=== PATIENT | female | born 1970 ===

== ENCOUNTER → 2022-12-16 14:00 | Outpatient (BNVA) | payer OTHER, SELFPAY | PROVIDERS: Visit Provider Physician Assistant | DX: Z13.89 Encounter for screening for other disorder (principal) ==

== ENCOUNTER 2023-03-04 09:54 | Outpatient (AMB) | payer OTHER, SELFPAY ==
--- NOTE | 2023-03-04 09:57 | A.OFFVIS_ITS ---
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 She heard about our program from her friends. Her goal is to lose weight and achieve a healthy lifestyle as well as to improve, if not resolve, obesity related medical conditions, including DM, HTN, HLD, DERECK. She reports first being concerned about her weight 5 years ago, highest weight to date was 195. Current weight is 184.8 with a BMI of 37.3. She has tried multiple methods of weight loss including fad diets without permanent results. She lives alone. She currently does not work. She states she gets SOB and palpitations with exercise. Saw cardiology at [facility] 5 years ago and was told she has an irregular heartbeat but had not followed up. She says her PCP advised her to walk until she gets the palpitations and then stop to recover. She states she gets the palpitations with non radiating chest tightness after 20 minutes. She wakes at:?7 am, and goes to bed at?10pm. Dinner is at 5pm. Breakfast: oatmeal, eggs AM snack: orange, cherries Lunch: skip PM snack: fruit or tuna Dinner: rice, chicken or fish, root veg After dinner: fruit or cookies Other snacks: candy, cookies Liquids: 16 oz water, coke or pepsi zero 1 bottle, no juice Alcohol/marijuana/tobacco intake: none Exercise: walk outside, could join a gym GERD score: 1 IAM score: 1 ESS score: 20 QOL score: 118 PFSH Surgical History Hx of section Hx of hysterectomy Family History Mother Diabetes Heart problem Hypertension Father Mental health disorder Daughter No problems noted. Son No problems noted. Son No problems noted. Social History Alcohol intake: never Patient Tobacco Use Status: Never used Tobacco Review of Systems Const All systems reviewed & are unremarkable except as noted in HPI and below Physical Exam Const General: cooperative, healthy appearing and no acute distress Orientation/consciousness: patient oriented x3 HEENT Head: Yes normal to inspection Ears: hearing grossly normal bilaterally General nose exam: Normal external nose present Face and sinus: Yes normal facial exam Eyes General: appearance normal, both eyes and all related structures Resp Effort & Inspection: normal respiratory effort Auscultation: clear to auscultation bilaterally Cardio Rate: regular rate Rhythm: regular rhythm Heart sounds: S1 normal heart sound present and S2 normal heart sound present GI Inspection: Yes normal to inspection, No distended and Yes obesity Palpation (GI): Soft to palpation, nontender and no guarding Auscultation: normal bowel sounds Skin General skin exam: no rashes or lesions noted Neuro General: patient oriented x3 Extrem General: No edema Psych Appearance: grossly normal Mental Status: mental status grossly normal Speech and movement: Normal speech and movement present Affect: normal affect Attitude: cooperative Assessment & Plan Assessment & Plan (1) Obesity (BMI 30-39.9): Code(s): E66.9 - Obesity, unspecified Plan: This is a?52 yo female who will start our SWL program to prepare for bariatric surgery.? Blood work, h pylori , CXR, ECG, Abd US and UGI have been ordered. She is being scheduled for RD and BH initial consultations. She will start SWL classes and watch the first three videos before her next appointment. ? Adequate sleep of 7-8 hours per night discussed, awakening at 7 am and going to bed around 10 pm ? Purchase body composition analyzer scale (Aneta vicetne or Evette recommended) and check weight weekly. The best time to do this is first thing in the morning after going to the bathroom. 1. Nutritional counseling: Be sure to careful read the number of scoops per shake Start with 2 Premier Protein shakes ([employer], [employer], [employer]) First shake, (1 scoop in 8 oz low fat unsweetened almond milk) at 8am-10am Second shake, (1 scoop in 8 oz unsweetened almond milk) at 12pm-2pm Dinner at 5pm (7 forks of protein and 7 forks of salad/vegetables). Meal to include lean meat (beef, fish, pork, turkey, chicken), cooked vegetables or a salad with olive oil and/or fruits (berries, pears, apples, kiwi). Avoid salt, breads, potatoes, rice, pasta, desserts. 1 protein bar (Zone Perfect bars or Fulfil bars at [employer], [employer], or [employer]) at 7pm-9pm. Try to drink 64 oz of water daily and avoid soda and juices. ?2. Each shake would be drunk slowly, like coffee in a period of 2 hours. ?3. Cut each bar in 4 pieces and eat each piece in 30 min ?to make each bar last 2 hours. ?4. I emphasized the importance of measuring accurately the food portion and measure it carefully when serving the food on the plate ?5. The meal portions include 7 full-size forks of meat and 7 full-size forks of salad. You always eat the meat portion but you can replace up to half of the forks of salad/vegetables with rice, potatoes or pasta, or a fruit ?if you like. The less you do it the better weight loss will be. ?6. One full-size fork is what can be scooped on the fork without falling aside and not what can be bit with the fork. Use regular forks like those you find in a typical restaurant. ?7.? Please send me weight measurements as soon as possible and then once a week. Always include your diet and exercise plan. Alternatively come weekly at the office for weight checks and send me the measurements. ?8. Exercise counseling: Begin by watching a stretching for beginners video. Start slowly and begin to stretch your muscles. You should do this before and after each exercise session to prevent injury. You may continue to walk as instructed by your PCP. Once you are seen by Pulmonology ( [facility] appt is 05/22/23) and Cardiology ( I put in a consult for you for the heart doctor at [place]). You will need to have clearance to exercise from these doctors before I can give you and exercise program. 10.? It is important to communicate by text once weekly with your weight and if you are having any problems with the plans. 11. Please get labs, EKG and chest X-Ray within 1 week. 12. Discussed and answered all questions regarding?obtained consent to participate in the [place] [facility]. 13. Please follow the diet plan exactly, without any change. If you do not like something about the plan or you feel hungry, you need to communicate with me so I can help you revise the plan. You should not change the plan yourself. Text me at [phone] 14. Goal is to lose at least 12 pounds in the first month 15. Goal is to lose 10% of your weight before surgery, which is about 18 lbs. Ultimate weight goal: 166 lbs before surgery Patient is morbidly obese and is not considered stable at this time.?I spent a total of 70 minutes reviewing/updating records, examining the patient and counseling the patient on weight management as detailed above. (2) Heart palpitations: Code(s): R00.2 - Palpitations Plan: Consult to cardiology for clearance to exercise given complaint of palpitations and chest tightness after 20 minutes of walking and she was told of irregular heartbeat at appt with cardiology at [facility] 5 years ago but never followed up. Orders: Orders Vitamin B12 and Folate Today E11.9 - Type 2 diabetes mellitus without complications, E66.9 - Obesity, unspecified, E78.00 - Pure hypercholesterolemia, unspecified, I10 - Essential (primary) hypertension Comprehensive Met. Panel Today E11.9 - Type 2 diabetes mellitus without complications, E66.9 - Obesity, unspecified, E78.00 - Pure hypercholesterolemia, unspecified, I10 - Essential (primary) hypertension C Reactive Protein Today E11.9 - Type 2 diabetes mellitus without complications, E66.9 - Obesity, unspecified, E78.00 - Pure hypercholesterolemia, unspecified, I10 - Essential (primary) hypertension Ferritin Today E11.9 - Type 2 diabetes mellitus without complications, E66.9 - Obesity, unspecified, E78.00 - Pure hypercholesterolemia, unspecified, I10 - Essential (primary) hypertension Hemoglobin A1c Today E11.9 - Type 2 diabetes mellitus without complications, E66.9 - Obesity, unspecified, E78.00 - Pure hypercholesterolemia, unspecified, I10 - Essential (primary) hypertension Insulin Today E11.9 - Type 2 diabetes mellitus without complications, E66.9 - Obesity, unspecified, E78.00 - Pure hypercholesterolemia, unspecified, I10 - Essential (primary) hypertension IRON PROFILE Today E11.9 - Type 2 diabetes mellitus without complications, E66.9 - Obesity, unspecified, E78.00 - Pure hypercholesterolemia, unspecified, I10 - Essential (primary) hypertension Lipid Panel Today E11.9 - Type 2 diabetes mellitus without complications, E66.9 - Obesity, unspecified, E78.00 - Pure hypercholesterolemia, unspecified, I10 - Essential (primary) hypertension PTHI Today E11.9 - Type 2 diabetes mellitus without complications, E66.9 - Obesity, unspecified, E78.00 - Pure hypercholesterolemia, unspecified, I10 - Essential (primary) hypertension TSH reflex Free T4 Today E11.9 - Type 2 diabetes mellitus without complications, E66.9 - Obesity, unspecified, E78.00 - Pure hypercholesterolemia, unspecified, I10 - Essential (primary) hypertension Vitamin A Today E11.9 - Type 2 diabetes mellitus without complications, E66.9 - Obesity, unspecified, E78.00 - Pure hypercholesterolemia, unspecified, I10 - Essential (primary) hypertension Vitamin B1 Today E11.9 - Type 2 diabetes mellitus without complications, E66.9 - Obesity, unspecified, E78.00 - Pure hypercholesterolemia, unspecified, I10 - Essential (primary) hypertension Vitamin D 25-OH Total Today E11.9 - Type 2 diabetes mellitus without complications, E66.9 - Obesity, unspecified, E78.00 - Pure hypercholesterolemia, unspecified, I10 - Essential (primary) hypertension Zinc Today E11.9 - Type 2 diabetes mellitus without complications, E66.9 - Obesity, unspecified, E78.00 - Pure hypercholesterolemia, unspecified, I10 - Essential (primary) hypertension ECG 12 lead EKG Today E11.9 - Type 2 diabetes mellitus without complications, E66.9 - Obesity, unspecified, E78.00 - Pure hypercholesterolemia, unspecified, I10 - Essential (primary) hypertension FL upper GI w air Today E11.9 - Type 2 diabetes mellitus without complications, E66.9 - Obesity, unspecified, E78.00 - Pure hypercholesterolemia, unspecified, I10 - Essential (primary) hypertension Complete Blood Count Auto Diff Today E11.9 - Type 2 diabetes mellitus without complications, E66.9 - Obesity, unspecified, E78.00 - Pure hypercholesterolemia, unspecified, I10 - Essential (primary) hypertension H Pylori Breath Test Today E11.9 - Type 2 diabetes mellitus without complications, E66.9 - Obesity, unspecified, E78.00 - Pure hypercholesterolemia, unspecified, I10 - Essential (primary) hypertension US abdomen comp w elastography Today E11.9 - Type 2 diabetes mellitus without complications, E66.9 - Obesity, unspecified, E78.00 - Pure hypercholesterolemia, unspecified, I10 - Essential (primary) hypertension XR chest 2V Today E11.9 - Type 2 diabetes mellitus without complications, E66.9 - Obesity, unspecified, E78.00 - Pure hypercholesterolemia, unspecified, I10 - Essential (primary) hypertension Referrals Behavioral Health Referral E11.9 - Type 2 diabetes mellitus without complications, E66.9 - Obesity, unspecified, E78.00 - Pure hypercholesterolemia, unspecified, I10 - Essential (primary) hypertension Cardiology Referral E11.9 - Type 2 diabetes mellitus without complications, E66.9 - Obesity, unspecified, I10 - Essential (primary) hypertension, R00.2 - Palpitations Nutrition/Dietitian Referral E11.9 - Type 2 diabetes mellitus without complications, E66.9 - Obesity, unspecified, E78.00 - Pure hypercholesterolemia, unspecified, I10 - Essential (primary) hypertension Coding Level of Care Code New Pt Level 5 (79052) Diagnoses Obesity (BMI 30-39.9) E66.9 Heart palpitations R00.2 Time Spent (min) 70
== END 2023-03-04 10:54 | disposition home or self-care (01) ==
PROVIDERS: Visit Provider Physician Assistant Surgical
DX: E66.9 Obesity, unspecified (principal); Z68.36 Body mass index [BMI] 36.0-36.9, adult; R00.2 Palpitations
CPT/HCPCS: 99205

== ENCOUNTER → 2023-03-04 09:54 | Outpatient (BNVA) | payer OTHER, SELFPAY | PROVIDERS: Visit Provider Physician Assistant Surgical | DX: E66.9 Obesity, unspecified (principal); E11.9 Type 2 diabetes mellitus without complications; I10 Essential (primary) hypertension; E78.00 Pure hypercholesterolemia, unspecified; R00.2 Palpitations; Z79.4 Long term (current) use of insulin; Z68.36 Body mass index [BMI] 36.0-36.9, adult; Z71.3 Dietary counseling and surveillance; Z79.899 Other long term (current) drug therapy | CPT/HCPCS: 99202 ==

== ENCOUNTER 2023-03-12 08:49 | Outpatient (REF) | payer OTHER, SELFPAY ==
--- NOTE | ~2023-03-12 | XR_ITS ---
EXAMINATION: XR CHEST CLINICAL INFORMATION: Obesity, unspecified COMPARISON: None available. TECHNIQUE: 2 views of the chest were obtained. FINDINGS: No significant abnormality is noted involving the heart, lungs, mediastinum, bony thorax or soft tissues. XR/XR chest 2V IMPRESSION: Unremarkable examination.
--- NOTE | 2023-03-12 08:59 | ECG_ITS ---
Test Reason : e66.9 Blood Pressure : / mmHG Vent. Rate : 080 BPM Atrial Rate : 080 BPM P-R Int : 150 ms QRS Dur : 084 ms QT Int : 386 ms P-R-T Axes : 055 021 029 degrees QTc Int : 445 ms Normal sinus rhythm Normal ECG No previous ECGs available Referred By: Giovanni Demarco Electronically Signed By:Nilesh Bonner
[2023-03-12 09:13] LABS: MANUAL DIFF FLAG NO
[2023-03-12 09:44] LABS: Basophils Absolute Auto 0.1 X10*3/uL (0.0-0.2); Basophils Percent Auto 0.9 % (0-2); Eosinophils Absolute Auto 0.2 X10*3/uL (0.0-0.4); Hematocrit 43.1 % (37.0-47.0); Imm Gran Abs Auto 0.05 X10*3/uL (0.00-0.03); Imm Gran Pct Auto 0.6 % (0.0-0.4); Lymphocytes Absolute Auto 2.8 X10*3/uL (1.2-4.9); Lymphocytes Percent Auto 33.9 % (20-40); Mean Corpuscular HGB Conc 32.5 g/dl (31.0-35.0); Mean Corpuscular Hemoglobin 28.2 pg (27.0-33.0); Mean Corpuscular Volume 86.7 fL (80.0-98.0); Mean Platelet Volume 10.1 fL (9.4-12.3); Monocytes Absolute Auto 0.4 X10*3/uL (0.1-1.2); Monocytes Percent Auto 5.3 % (2-11); Neutrophils Absolute Auto 4.7 x10*3/uL (2.0-8.3); Neutrophils Percent Auto 57.3 % (45-73); Platelet Count 247 X10*3/uL (160-400); Red Blood Count 4.97 X10*6/uL (4.20-5.50); White Blood Count 8.2 X10*3/uL (4.8-10.8)
[2023-03-12 09:54] LABS: Estimated Average Glucose 197 mg/dL; Hemoglobin A1c % 8.5 %
[2023-03-12 10:24] LABS: Alanine Aminotransferase 25 U/L (0-31); Albumin Level 4.1 g/dL (3.5-5.0); Alkaline Phosphatase 126 U/L (39-117); Anion Gap 12 (12-20); Aspartate Amino Transferase 18 U/L (5-31); Blood Urea Nitrogen 13 mg/dL (9-16); C Reactive Protein 0.44 mg/dL (< or = 0.50); Calcium 9.5 mg/dL (8.4-10.2); Carbon Dioxide 25 mmol/L (22-29); Chloride 106 mmol/L (96-108); Cholesterol 179 mg/dL; Estimated Glomerular Filt Rate > 60; Glucose Random 198 mg/dL (60-115); HDL Cholesterol 51 mg/dL; Iron 60 mcg/dL (30-160); LDL Cholesterol Calculated 107 mg/dl; Percent Iron Saturation 23 % (15-50); Potassium 4.3 mmol/L (3.3-5.1); Sodium 139 mmol/L (135-145); Total Iron Binding Capacity 266 mcg/dL (228-428); Total Protein 6.9 g/dL (6.5-8.0); Triglycerides 108 mg/dL; Unsaturated Iron Binding 206 ug/dL
[2023-03-12 10:31] LABS: Bilirubin Total 0.5 mg/dL (0.0-1.0)
[2023-03-12 10:45] LABS: Ferritin 161 ng/mL (10-250); Insulin 44 uU/mL (2-29); TSH reflex Free T4 2.69 uIU/mL (0.32-4.0)
[2023-03-12 10:48] LABS: Folate 13.7 ng/mL (> or = 4.0); Vitamin B12 578 pg/mL (200-900)
[2023-03-15 05:43] LABS: Calcium (PTHI) 9.3 mg/dL (8.6-10.4); PTHI 58 pg/mL (16-77)
[2023-03-16 10:28] LABS: Vitamin B1 14 nmol/L (8-30)
[2023-03-17 16:13] LABS: Zinc 77 mcg/dL (60-130)
[2023-03-19 21:33] LABS: Vitamin A 45 mcg/dL (38-98)
== END 2023-03-12 08:50 | disposition home or self-care (01) ==
LOC: HO.LAB 08:49
PROVIDERS: Visit Provider Physician Assistant Surgical
DX: E11.9 Type 2 diabetes mellitus without complications (principal); E66.9 Obesity, unspecified; E78.00 Pure hypercholesterolemia, unspecified; I10 Essential (primary) hypertension
CPT/HCPCS: 36415; 71046; 80053; 80061; 82306; 82607; 82728; 82746; 83036; 83525; 83540; 83970; 84425; 84443; 84590; 84630; 85025; 86140; 93005

== ENCOUNTER → 2023-03-12 08:59 | Outpatient (BNV) | payer OTHER, SELFPAY | PROVIDERS: Visit Provider Internal Medicine Cardiovascular Disease | DX: E66.9 Obesity, unspecified (principal) | CPT/HCPCS: 93010 ==

== ENCOUNTER → 2023-03-28 13:36 | Outpatient (BNVA) | payer OTHER, SELFPAY | PROVIDERS: Visit Provider Physician Assistant Surgical | DX: Z11.0 Encounter for screening for intestinal infectious diseases (principal); F32.A Depression, unspecified | CPT/HCPCS: 99211 ==

== ENCOUNTER 2023-03-28 13:38 | Outpatient (AMB) | payer OTHER, SELFPAY ==
--- NOTE | 2023-03-28 14:17 | A.OFFWM_ITS ---
Intake Intake Visit Reasons: (OV) BH Intake Allergies tramadol Allergy (Mild, Verified 03/04/23 10:01) WEAKNESS PFSH Surgical History Hx of section Hx of hysterectomy Family History Mother Diabetes Heart problem Hypertension Father Mental health disorder Daughter No problems noted. Son No problems noted. Son No problems noted. Social History Alcohol intake: never Patient Tobacco Use Status: Never used Tobacco Behavioral Health Assessment Weight Management Therapy Therapy Notes Details PT is a 53 year old female who presents for initial BH assessment as part of surgical Weight-loss management program. Presenting Concerns Referral Source WMP Provider Reason for referral Completion of behavioral health assessment as part of process for weight-loss surgery. Precipitating Event Obesity, diabetes, sleep apnea. Living Situation Current Living Situation Rent At risk of losing current housing? No Satisfied with current living situation? No (Building is old and needs repairs.) Comments PT lives alone. Food/Weight/Diet Expectations of change Pt wants to achieve a healthy weight and not take medication anymore. History/Relationship with food -PT reports she doesn't eat a lot but, s he has periods of emotional-eating. When depressed she doesn't eat and when anxious she overeats. -Examples of meal routine before startin g program Breakfast @10/11am: 1 egg, 1 slide of bread, 1 diet soda Lunch: Skip Dinner @4/5pm: Rice, meat, beans, salad. But she varies. Sometimes multiple carbs in one meal. PT reports she hasn't started the meal plan proposed yet, besides dinner as indicated. History/Relationship with weight Weight has been a concerns for the past 15 years. History/Relationship with dieting cut on calories, but she gains all weight back once getting into regular habits. Binge Eating Do you frequently eat large amounts of food in short periods of time, not feeling physically hungry? No Do you feel out of control when you eat a large amount of food in a short period of time? No Do you eat large amounts of food rapidly and typically alone? No Night Eating Do you wake up at least once during the night to eat? No If you wake up in the night, do you find that it is necessary to eat something in order to fall back asleep? No Do you have little or no appetite in the morning and feel very hungry in the evening, often overeating between dinner and when you go to bed? Yes Social History Family history and relationship PT is . She has 3 adult children. Daughter in [place] and 2 sons in [place]. She has 7 grandkids and 4 great-grandkids. She has 9 siblings. Pt reports good family relationships. 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 Developmental history and status None. Social support Friends, a brother who has bariatric surgery. Community support Providers. Taoism/Spirituality PT is [employer]. But after Covid hasn't attended [employer] anymore. Cultural/Ethnic information PT is from [place]. Moved to [place] 15 years ago. Pt is [place]ican-Speaking. Legal Involvement and History Current or historical involvement with the legal system? None. 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 No Financial Situation Describe current financial situation Occasional struggle Financial assistance? Food [place] and [employer] Service Service? No Mental Health and Addiction Treatment Psychiatric history In therapy. Monthly seema. Never hopsitalizaed Denies SI. Dx depression, anxiety, panic attacks. Questionnaires PHQ-9 Over the last 2 weeks, how often have you been bothered by any of the following problems? 1. Little interest or pleasure in doing things: several days 2. Feeling down, depressed, or hopeless: nearly every day 3. Trouble falling or staying asleep, or sleeping too much: more than half the days 4. Feeling tired or having little energy: nearly every day 5. Poor appetite or overeating: more than half the days 6. Feeling bad about yourself - or that you are a failure or have let yourself or your family down: more than half the days 7. Trouble concentrating on things, such as reading the newspaper or watching television: nearly every day 8. Moving or speaking so slowly that other people could have noticed. Or the opposite - being so fidgety or restless that you have been moving around a lot more than usual: more than half the days 9. Thoughts that you would be better off or of hurting yourself in some way: not at all Total score: 18 Depression Screening Interpretation: Positive ( Moderately Severe sx) Depression Screening Follow-up: Existing condition, In treatment and Follow-up Visit Requested [id number] - PHQ-9 Billing: Yes Source: Developed by Drs. Kam Laird, Gladis Arvizu, Pedro Luis Kat and colleagues, with an educational baltazar from [employer]. Binge Eating Scale Group 1 A. I don't feel self-conscious about my wt. or body size when I'm with others. B. I feel concerned about how I look to others, but it normally does not make me fell disappointed with myself C. I do get self-conscious about my appearance and wt. which makes me feel disappointed in myself. D. I feel very self-conscious about my wt. and frequently I feel intense shame and disgust for myself. I try to avoid social contacts because of my self- consciousness. Response Group 1: D Group 2 A. I don't have any difficulty eating slowly in the proper manner. B. Although I seem to gobble down foods, I don't end up feeling stuffed because of eating to much. C. At times, I tend to eat quickly and then, I feel uncomfortably full afterwards. D. I have the habit of bolting down my food, without really chewing it. When this happens I usually feel uncomfortably stuffed because I've eaten to much. Response Group 2: A Group 3 A. I feel capable to control my eating urges when I want to. B. I feel like I have failed to control my eating more than the average person. C. I feel utterly helpless when it comes to feeling in control of my eating urges. D. Because I feel so helpless about controlling my eating I have become very desperate about trying to get control. Response Group 3: B Group 4 A. I don't have the habit of eating when I'm bored. B. I sometimes eat when I'm bored, but often I'm able to get busy and get my mind off food. C. I have a regular habit of eating when I'm bored, but occasionally, I can use some other activity to get my mind off eating. D. I have a strong habit of eating when I'm bored. Nothing seems to help me breath the habit. Response Group 4: D Group 5 A. I'm usually physically hungry when I eat something. B. Occasionally, I eat something on impulse even though I really am not hungry. C. I have the regular habit of eating foods, that I might not really enjoy, to satisfy a hungry feeling even though physically, I don't need the food. D. Although I'm not physically hungry, I get a hungry feeling in my mouth that only seems to be satisfied when I eat a food, like sandwich, that fills my mouth. Sometimes, when I eat the food to satisfy my mouth hunger, I then spit the food out so I won't gain weight. Response Group 5: D Group 6 A. I don't feel any guilt or self-hate after I overeat. B. After I overeat, occasionally I feel guilt or self-hate. C. Almost all the time I experience strong guilt or self-hate after I overeat. Response Group 6: C Group 7 A. I don't lose total control of my eating when dieting even after periods when I overeat. B. Sometimes when I eat a forbidden food on a diet, I feel like I blew it and eat even more. C. Frequently, I have the habit of saying to myself, I've blown it now, why not go all the way, when I overeat on a diet. When that happens I eat more. D. I have a regular habit of starting a strict diets for myself but I break the diets by going on an eating binge. My life seems to be either a feast or famine. Response Group 7: A Group 8 A. I rarely eat so much food that I feel uncomfortably stuffed afterwards. B. Usually about once a month, I each such a quantity of food, I end up feeling very stuffed. C. I have regular periods during the month when I eat large amounts of food, either at mealtime or at snacks. D. I eat so much food that I regularly feel quite uncomfortable after eating and sometimes a bit nauseous. Response Group 8: A Group 9 A. My level of calorie intake does not go up very high or go down very low on a regular basis. B. Sometimes after I overeat, I will try to reduce my caloric intake to almost nothing to compensate for the excess calories I've eaten. C. I have a regular habit of overeating during the night. It seems that my routine is not to be hungry in the morning but overeat in the evening. D. In my adult years, I have had week-long periods where I practically starve myself. This follows periods when I overeat. It seems I live a life of either feast or famine. Response Group 9: A Group 10 A. I usually am able to stop eating when I want to. I know when enough is enough. B. Every so often, I experience a compulsion to eat which I can't seem to control. C. Frequently, I experience strong urges to eat which I seem unable to control, but at other times I can control my eating urges. D. I feel incapable of controlling urges to eat. I have a fear of not being able to stop eating voluntarily. Response Group 10: A Group 11 A. I don't have any problem stopping eating when I feel full. B. I usually can stop eating when I feel full but occasionally overeat leaving me feeling uncomfortably stuffed. C. I have a problem stopping eating once I start and usually I feel uncomfortably stuffed after I eat a meal. D. Because I have a problem not being able to stop eating when I want, I sometimes have to induce vomiting to relieve my stuffed feeling. Response Group 11: A Group 12 A. I seem to eat just as much when I'm with others, Family social gatherings as when I'm by myself. B. Sometimes, when I'm with other persons, I don't eat as much as I want to eat because I'm self-conscious about my eating. C. Frequently, I eat only a small amount of food when others are present, because I'm very embarrassed about my eating. D. I feel so ashamed about overeating that I pick times to overeat when I know no one will see me. I feel like a closet eater. Response Group 12: A Group 13 A. I eat three meals a day with only an occasional between meal snack. B. I eat 3 meals a day, but I also normally snack between meals. C. When I am snacking heavily, I get in the habit of skipping regular meals. D. There are regular periods when I seem to be continually eating, with no planned meals. Response Group 13: A Group 14 A. I don't think much about trying to control unwanted eating urges. B. At least some of the time, I feel my thoughts are pre-occupied with trying to control my eating urges. C. I feel that frequently I spend much time thinking about how much I ate or about trying not to eat anymore. D. It seems to me that most of my waking hours are pre-occupied by thoughts about eating or not eating. I feel like I'm constantly struggling not to eat. Response Group 14: D Group 15 A. I don't think about food a great deal. B. I have strong craving for food but they last only for brief periods of time. C. I have days when I can't seem to think about anything else but food. D. Most of my days seem to be pre-occupied with thoughts about food. I feel like I live to eat. Response Group 15: A Group 16 A. I usually know whether or not I'm physically hungry. I take the right portion of food to satisfy me. B. Occasionally, I feel uncertain about knowing whether or not I'm physically hungry. A these times it's hard to know how much food I should take to satisfy me. C. Even though I might know how many calories I should eat, I don't have any idea what is a normal amount of food for me. Response Group 16: B Binge Eating Score: 16 (Conflicting answers, will repeat next seema.) Score less than 17 Minimal Risk Score between 18-26 Moderate Risk Score between 27-46 High Risk Assessment & Plan Assessment & Plan (1) Depression, unspecified: Code(s): F32.A - Depression, unspecified Plan Not cleared. PT will need a f/up to finish assessment, we will repeat PHQ-9 and BES. Coding Level of Care Code New Pt Psy Diag Sunita ([id number]) Patient Type New Diagnoses Depression, unspecified F32.A Time Spent (min) 60
== END 2023-03-28 16:14 | disposition home or self-care (01) ==
LOC: HO.HBST 13:38
PROVIDERS: Visit Provider Counselor Mental Health
DX: F32.A Depression, unspecified (principal)
CPT/HCPCS: 90791

== ENCOUNTER 2023-03-28 17:50 | Outpatient (REF) | payer OTHER, SELFPAY ==
[2023-03-30 11:43] LABS: H Pylori Breath Test Negative (Negative)
== END 2023-03-28 17:51 | disposition home or self-care (01) ==
LOC: HO.LNP 17:50
PROVIDERS: Visit Provider Physician Assistant Surgical
DX: E66.9 Obesity, unspecified (principal); E11.9 Type 2 diabetes mellitus without complications; E78.00 Pure hypercholesterolemia, unspecified; I10 Essential (primary) hypertension
CPT/HCPCS: 83013

== ENCOUNTER 2023-05-08 12:45 | Outpatient (AMB) | payer OTHER, SELFPAY ==
--- NOTE | 2023-05-08 13:14 | MHC.WMTHER ---
Intake Intake Visit Reasons: (OV) BH F/U Allergies tramadol Allergy (Mild, Verified 05/09/23 09:33) WEAKNESS [facility] Medical History (Updated 05/09/23 @ 10:00 by HUEY Guevara) History of pulmonary embolism Surgical History Hx of hysterectomy Hx of section Family History Mother Diabetes Heart problem Hypertension Father Mental health disorder Daughter No problems noted. Son No problems noted. Son No problems noted. Social History Alcohol intake: never Patient Tobacco Use Status: Never used Tobacco Behavioral Health Assessment Weight Management Therapy Therapy Notes Details PT is a 53 year old female who presents for a f/up to complete assessment as part of surgical Weight-loss management program. PT disclosed a hx of depression and current mental health treatment at [facility] in [place], where she sees therapist every month and prescriber every 2 months. PT reports she's overall stable but symptoms persist and he has episodes of depression on a regular basis. Pt denied ever been hospitalized and/or in crisis for behavioral health, also denies past/current safety concerns around SI, SA and/or self/other-harm, and there is no history of substance use reported. Pt reports concerns with stress/emotional-eating, and spite lower scores in BES, her answers were conflicting with other statements, also her scores in PHQ-9 indicates active sx of depression. PT not cleared today. She will meet with provider again, records from current providers needs to be requested and on next seema we will administer again the 9 and BES. Presenting Concerns Referral Source [facility] Provider Reason for referral Completion of behavioral health assessment as part of process for weight-loss surgery. Precipitating Event Obesity, diabetes, sleep apnea. Living Situation Current Living Situation Rent At risk of losing current housing? No Satisfied with current living situation? No (Building is old and needs repairs.) Comments PT lives alone. Food/Weight/Diet Expectations of change Pt wants to achieve a healthy weight and not take medication anymore. Initial goal is to lose 10% of her weight before surgery, which is about 18 lbs. Ultimate weight goal: 166 lbs. before surgery History/Relationship with food -PT reports she doesn't eat a lot but, she has periods of emotional-eating. When depressed she doesn't eat and when anxious she overeats. -Examples of meal routine before starting program Breakfast @10/11am: 1 egg, 1 slide of bread, 1 diet soda Lunch: Skip Dinner @4/5pm: Rice, meat, beans, salad. But she varies. Sometimes multiple carbs in one meal. PT reports she hasn't started the meal plan proposed yet, besides dinner as indicated. History/Relationship with weight Weight has been a concerns for the past 15 years. History/Relationship with dieting cut on calories, but she gains all weight back once getting into regular habits. Binge Eating Do you frequently eat large amounts of food in short periods of time, not feeling physically hungry? No Do you feel out of control when you eat a large amount of food in a short period of time? No Do you eat large amounts of food rapidly and typically alone? No Night Eating Do you wake up at least once during the night to eat? No If you wake up in the night, do you find that it is necessary to eat something in order to fall back asleep? No Do you have little or no appetite in the morning and feel very hungry in the evening, often overeating between dinner and when you go to bed? Yes Social History Family history and relationship PT is . She has 3 adult children. Daughter in [place] and 2 sons in [place]. She has 7 grandkids and 4 great-grandkids. She has 9 siblings. Pt reports good family relationships. 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 Developmental history and status None. Social support Friends, a brother who has bariatric surgery. Community support Providers. Holiness/Spirituality PT is [employer]. But after Covid hasn't attended judaism anymore. Cultural/Ethnic information PT is from [place]. Moved to [place] 15 years ago. Pt is Ukrainian-Speaking. Legal Involvement and History Current or historical involvement with the legal system? None. Education Highest grade completed 10th grade. Preferred learning style Auditory and Visual Currently enrolled in educational program? No Interested in further educational program? No Educational Interests/Skills none. 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 No Meaningful activities Crossword books, cellphone games, watch tv, Financial Situation Describe current financial situation Occasional struggle Financial assistance? Food [place] and SSI Service Service? No Mental Health and Addiction Treatment Current/Past substance abuse? No Current/Past addictive behavior concerns? No Psychiatric history PT attends monthly counseling services and sees prescriber every 2 months at [facility] in [place]. Diagnosed depression, anxiety, panic attacks. Never hospitalized Denies SI. Medical and Physical Health Summary Additional Medical History not covered in history None reported Sexual History concerns None reported Physical exam in the last year? Yes Pain Screening Current pain? Yes Pain in the last few months? Yes Comments Body aches/pains, knee pain. Medications Is the patient compliant with medications? Yes Does the patient have Perez Guardian in place? Not applicable Does the patient use complimentary health approaches? No Trauma/Abuse History History of trauma? No Questionnaires PHQ-9 Over the last 2 weeks, how often have you been bothered by any of the following problems? 1. Little interest or pleasure in doing things: nearly every day 2. Feeling down, depressed, or hopeless: more than half the days 3. Trouble falling or staying asleep, or sleeping too much: nearly every day (Issues falling asleep and wakes up multiple times.) 4. Feeling tired or having little energy: more than half the days (due to not being able to sleep well.) 5. Poor appetite or overeating: not at all 6. Feeling bad about yourself - or that you are a failure or have let yourself or your family down: nearly every day 7. Trouble concentrating on things, such as reading the newspaper or watching television: more than half the days 8. Moving or speaking so slowly that other people could have noticed. Or the opposite - being so fidgety or restless that you have been moving around a lot more than usual: nearly every day 9. Thoughts that you would be better off or of hurting yourself in some way: not at all Total score: 18 Depression Screening Interpretation: Positive (Scores indicate: Moderately-severe SX.) Depression Screening Follow-up: Existing condition, In treatment (/advised to discuss with her therapist to increase frequency of sessions.) and Other 91250 - PHQ-9 Billing: Yes Source: Developed by Drs. Kam Laird, Gladis B.W. Pedro Luis Arvizu and colleagues, with an educational baltazar from [employer]. Binge Eating Scale Group 1 A. I don't feel self-conscious about my wt. or body size when I'm with others. B. I feel concerned about how I look to others, but it normally does not make me fell disappointed with myself C. I do get self-conscious about my appearance and wt. which makes me feel disappointed in myself. D. I feel very self-conscious about my wt. and frequently I feel intense shame and disgust for myself. I try to avoid social contacts because of my self-consciousness. Response Group 1: D Group 2 A. I don't have any difficulty eating slowly in the proper manner. B. Although I seem to gobble down foods, I don't end up feeling stuffed because of eating to much. C. At times, I tend to eat quickly and then, I feel uncomfortably full afterwards. D. I have the habit of bolting down my food, without really chewing it. When this happens I usually feel uncomfortably stuffed because I've eaten to much. Response Group 2: A Group 3 A. I feel capable to control my eating urges when I want to. B. I feel like I have failed to control my eating more than the average person. C. I feel utterly helpless when it comes to feeling in control of my eating urges. D. Because I feel so helpless about controlling my eating I have become very desperate about trying to get control. Response Group 3: B Group 4 A. I don't have the habit of eating when I'm bored. B. I sometimes eat when I'm bored, but often I'm able to get busy and get my mind off food. C. I have a regular habit of eating when I'm bored, but occasionally, I can use some other activity to get my mind off eating. D. I have a strong habit of eating when I'm bored. Nothing seems to help me breath the habit. Response Group 4: D Group 5 A. I'm usually physically hungry when I eat something. B. Occasionally, I eat something on impulse even though I really am not hungry. C. I have the regular habit of eating foods, that I might not really enjoy, to satisfy a hungry feeling even though physically, I don't need the food. D. Although I'm not physically hungry, I get a hungry feeling in my mouth that only seems to be satisfied when I eat a food, like sandwich, that fills my mouth. Sometimes, when I eat the food to satisfy my mouth hunger, I then spit the food out so I won't gain weight. Response Group 5: D Group 6 A. I don't feel any guilt or self-hate after I overeat. B. After I overeat, occasionally I feel guilt or self-hate. C. Almost all the time I experience strong guilt or self-hate after I overeat. Response Group 6: C Group 7 A. I don't lose total control of my eating when dieting even after periods when I overeat. B. Sometimes when I eat a forbidden food on a diet, I feel like I blew it and eat even more. C. Frequently, I have the habit of saying to myself, I've blown it now, why not go all the way, when I overeat on a diet. When that happens I eat more. D. I have a regular habit of starting a strict diets for myself but I break the diets by going on an eating binge. My life seems to be either a feast or famine. Response Group 7: A Group 8 A. I rarely eat so much food that I feel uncomfortably stuffed afterwards. B. Usually about once a month, I each such a quantity of food, I end up feeling very stuffed. C. I have regular periods during the month when I eat large amounts of food, either at mealtime or at snacks. D. I eat so much food that I regularly feel quite uncomfortable after eating and sometimes a bit nauseous. Response Group 8: A Group 9 A. My level of calorie intake does not go up very high or go down very low on a regular basis. B. Sometimes after I overeat, I will try to reduce my caloric intake to almost nothing to compensate for the excess calories I've eaten. C. I have a regular habit of overeating during the night. It seems that my routine is not to be hungry in the morning but overeat in the evening. D. In my adult years, I have had week-long periods where I practically starve myself. This follows periods when I overeat. It seems I live a life of either feast or famine. Response Group 9: A Group 10 A. I usually am able to stop eating when I want to. I know when enough is enough. B. Every so often, I experience a compulsion to eat which I can't seem to control. C. Frequently, I experience strong urges to eat which I seem unable to control, but at other times I can control my eating urges. D. I feel incapable of controlling urges to eat. I have a fear of not being able to stop eating voluntarily. Response Group 10: A Group 11 A. I don't have any problem stopping eating when I feel full. B. I usually can stop eating when I feel full but occasionally overeat leaving me feeling uncomfortably stuffed. C. I have a problem stopping eating once I start and usually I feel uncomfortably stuffed after I eat a meal. D. Because I have a problem not being able to stop eating when I want, I sometimes have to induce vomiting to relieve my stuffed feeling. Response Group 11: A Group 12 A. I seem to eat just as much when I'm with others, Family social gatherings as when I'm by myself. B. Sometimes, when I'm with other persons, I don't eat as much as I want to eat because I'm self-conscious about my eating. C. Frequently, I eat only a small amount of food when others are present, because I'm very embarrassed about my eating. D. I feel so ashamed about overeating that I pick times to overeat when I know no one will see me. I feel like a closet eater. Response Group 12: A Group 13 A. I eat three meals a day with only an occasional between meal snack. B. I eat 3 meals a day, but I also normally snack between meals. C. When I am snacking heavily, I get in the habit of skipping regular meals. D. There are regular periods when I seem to be continually eating, with no planned meals. Response Group 13: A Group 14 A. I don't think much about trying to control unwanted eating urges. B. At least some of the time, I feel my thoughts are pre-occupied with trying to control my eating urges. C. I feel that frequently I spend much time thinking about how much I ate or about trying not to eat anymore. D. It seems to me that most of my waking hours are pre-occupied by thoughts about eating or not eating. I feel like I'm constantly struggling not to eat. Response Group 14: D Group 15 A. I don't think about food a great deal. B. I have strong craving for food but they last only for brief periods of time. C. I have days when I can't seem to think about anything else but food. D. Most of my days seem to be pre-occupied with thoughts about food. I feel like I live to eat. Response Group 15: A Group 16 A. I usually know whether or not I'm physically hungry. I take the right portion of food to satisfy me. B. Occasionally, I feel uncertain about knowing whether or not I'm physically hungry. A these times it's hard to know how much food I should take to satisfy me. C. Even though I might know how many calories I should eat, I don't have any idea what is a normal amount of food for me. Response Group 16: B Binge Eating Score: 16 (Conflicting answers, will repeat next seema.) Score less than 17 Minimal Risk Score between 18-26 Moderate Risk Score between 27-46 High Risk Assessment & Plan Assessment & Plan (1) Depression, unspecified: Code(s): F32.A - Depression, unspecified Plan - Pt needs to bring list of medication next time and information of providers (names/address and fax #) - Advised to talk with provider about alternatives for shakes brand/flavor and/or snack options besides the bar. This provider will message Madiha Demarco to be aware of this. -PT will need to f/up in 3-4 weeks. -PT not cleared due to active Sx of depression. - Repeat BES/PHQ9 next seema. Next seema: 06/19/23 at 1:30pm - telehealth Coding Level of Care Code Established Pt Tele Psytx >53 mins (97830) Patient Type Established Diagnoses Depression, unspecified F32.A Time Spent (min) 60
== END 2023-05-08 14:00 | disposition home or self-care (01) ==
PROVIDERS: Visit Provider Counselor Mental Health
DX: F32.A Depression, unspecified (principal)
CPT/HCPCS: 90837

== ENCOUNTER → 2023-05-08 12:45 | Outpatient (BNVA) | payer OTHER, SELFPAY | PROVIDERS: Visit Provider Counselor Mental Health ==

== ENCOUNTER 2023-05-09 09:28 | Outpatient (AMB) | payer OTHER, SELFPAY ==
--- NOTE | 2023-05-09 09:30 | MHC.OFFVISWM ---
Intake VS Expanded 05/09/23 09:34 Height 4 ft 11 in Weight 181 lb 6.4 oz BMI 36.6 BP 125/71 Blood Pressure Location Rt brachial Blood Pressure Position Sitting Pulse 76 Pulse Source Pulse Oximeter Temp 96.2 F L Temperature Source Temporal Artery Scan Pulse Oximetry 96 Oxygen Delivery Method Room Air Body Fat 79.0 Body Fat Percentage 43.6 Free Fat Mass 102.2 Muscle Mass 97.0 Visceral Mass 12.0 Water Mass 72.8 BMR 1,430 Intake Visit Reasons: (OV) F/U SWL Water Vessel Captain Required: Yes Water Vessel Captain Name: office cmi Allergies tramadol Allergy (Mild, Verified 05/09/23 09:33) WEAKNESS Medication List - Last Reconciled 05/09/23 by HUEY Guevara atorvastatin 10 mg PO DAILY ergocalciferol (vitamin D2) 1,250 mcg PO QWEEK escitalopram oxalate 20 mg PO DAILY insulin glargine (Lantus Solostar U-100 Insulin) 40 units subcut DAILY insulin lispro subcut metoprolol tartrate 25 mg PO BID HPI HPI Comments History of Present Illness Details The patient is a pleasant 53 year old female who returns to the clinic for pre-operative surgical weight loss management. They were last seen in the office on 03/04/23, recorded weight at that time was 184.8 pounds, with a BMI of 37.3. Today's weight is 181.4 pounds and BMI is 36.6. There has been a weight loss of 3.4 pounds since initiating the surgical weight loss program on 03/04/23 with a total body weight loss of 1.8 %. Pre op work up completed as follows: SWL classes:? 10/02 BH appts: f/u 06/19/23 ? ? RD appts: 05/14/23 Labs: 03/12/23 A1c: 8.5 H. pylori: 03/12/23-neg CXR: 03/12/23-nad EK03/12/23-normal ABD U/S: NS-03/19/23 UGI: 05/14/23 The patient reports she has an appointment with cardiology on 07/21/23 for her issues w palpitations with activity. She missed her appointment last month due to transportation issues. She states she is following the meal plan. States using a RTD shake in AM, then another at noon. Meal w 7 forks/7 forks and then the bar. She is unable to exercise as she is awaiting appt with pulmonology for f/u from PE 06/25/22 after a surgery for her leg for venous insuff . She has f/u 05/22/23. Current meal plan includes: 2 Premier Protein shakes ([employer], [employer], [employer]) First shake, (1 scoop in 8 oz low fat unsweetened almond milk) at 8am-10am Second shake, (1 scoop in 8 oz unsweetened almond milk) at 12pm-2pm Dinner at 5pm (7 forks of protein and 7 forks of salad/vegetables). 1 protein bar (Zone Perfect bars or Fulfil bars at [employer], [employer], or [employer]) at 7pm-9pm. Drinking 64 oz of water Current exercise plan includes: walking outside 3-4 days per week, not tracking calories. [facility] Medical History (Updated 05/09/23 @ 10:00 by HUEY Guevara) History of pulmonary embolism Surgical History Hx of hysterectomy Hx of section Family History Mother Diabetes Heart problem Hypertension Father Mental health disorder Daughter No problems noted. Son No problems noted. Son No problems noted. Social History Alcohol intake: never Patient Tobacco Use Status: Never used Tobacco Review of Systems Const All systems reviewed & are unremarkable except as noted in HPI and below Physical Exam Vital Signs: Last Vital Signs Temp 96.2 F L 05/09/23 09:34 Pulse 76 05/09/23 09:34 BP 125/71 05/09/23 09:34 Pulse Ox 96 05/09/23 09:34 Oxygen Delivery Method Room Air 05/09/23 09:34 BMI result Body Mass Index 36.6 Const General: healthy appearing and no acute distress Resp Effort & Inspection: normal respiratory effort Auscultation: clear to auscultation bilaterally Cardio Rate: regular rate Rhythm: regular rhythm GI Auscultation: normal bowel sounds Extrem General: Yes normal to inspection Assessment & Plan Assessment & Plan (1) Obesity (BMI 30-39.9): Code(s): E66.9 - Obesity, unspecified Plan: 2 Premier Protein shakes ([employer], [employer], [employer]) First shake, (1 scoop in 8 oz low fat unsweetened almond milk) at 9am-11am Second shake, (1 scoop in 8 oz unsweetened almond milk) at 1pm-3pm Dinner at 5pm (7 forks of protein and 7 forks of salad/vegetables). 1 protein bar (Zone Perfect bars or Fulfil bars at [employer], [employer], or [employer]) at 7pm-9pm. Continue to walk as she is able but encouraged to track calories and text weekly with weight rtc 1 month Coding Level of Care Code Est Pt Level 3 (48263) Diagnoses Obesity (BMI 30-39.9) E66.9
[2023-05-09 09:34] VITALS: BP 125/71; PULSE 76; TEMP 35.7; O2SAT 96; BMI 36.6
== END 2023-05-09 10:00 | disposition home or self-care (01) ==
PROVIDERS: Visit Provider Physician Assistant Surgical
DX: E66.9 Obesity, unspecified (principal); Z68.36 Body mass index [BMI] 36.0-36.9, adult
CPT/HCPCS: 99213

== ENCOUNTER → 2023-05-09 09:28 | Outpatient (BNVA) | payer OTHER, SELFPAY | PROVIDERS: Visit Provider Physician Assistant Surgical | DX: E66.9 Obesity, unspecified (principal); Z68.36 Body mass index [BMI] 36.0-36.9, adult | CPT/HCPCS: 99212 ==

== ENCOUNTER 2023-05-14 15:19 | Outpatient (AMB) | payer OTHER, SELFPAY ==
--- NOTE | 2023-05-14 15:32 | MHC.AMNUTRGE ---
Intake VS Expanded 05/14/23 16:31 Height 4 ft 11 in Weight 183 lb BMI 37.0 Intake Visit Reasons: (OV) F/U SWL Spray Blender Required: Yes Spray Blender Name: [email or web address] [id number] Information Interpreted: non-clinical & clinical Allergies tramadol Allergy (Mild, Verified 05/09/23 09:33) WEAKNESS HPI Nutrition Presentation Reason for consult elevated BMI Diet Assmnt Details Pt states she is doing well with the program, she likes the bars and shakes. has been consistent with the plan 9am protein shake 1 scoop Premier powder in water 1-3pm shake is hungry around this time 5pm meal 7-8pm protein bar SWl online classes: 11/30, reviewed basics of nutritoin Previous weight loss methods attempted She reports first being concerned about her weight 5 years ago, highest weight to date was 195. Current weight is 184.8 with a BMI of 37.3. She has tried multiple methods of weight loss including fad diets without permanent results. She lives alone. She currently does not work. Dietary counseling reduction Diagnosis Nutrition problem #1 overweight/obesity As related to (etiology) #1 excess energy intake and physical inactivity As evidenced by (sign/symptom) #1 high BMI Monitoring/Goals Nutrition problem monitoring total energy intake, level of knowledge/skill, total PRO intake, total CHO intake and weight Outcome progress not met Learning/Education Readiness to learn good Stages of change action Educational materials provided Yes Most Recent Diabetes Results: Cholesterol 179 mg/dL 03/12/23 HDL Cholesterol 51 mg/dL 03/12/23 Triglycerides 108 mg/dL 03/12/23 Creatinine 0.75 mg/dL (0.5-1.4) 03/12/23 Blood Urea Nitrogen 13 mg/dL (9-16) 03/12/23 Sodium 139 mmol/L (135-145) 03/12/23 Potassium 4.3 mmol/L (3.3-5.1) 03/12/23 Chloride 106 mmol/L (96-108) 03/12/23 Carbon Dioxide 25 mmol/L (22-29) 03/12/23 Calcium 9.5 mg/dL (8.4-10.2) 03/12/23 AST 18 U/L (5-31) 03/12/23 ALT 25 U/L (0-31) 07/19/23 Total Protein 6.9 g/dL (6.5-8.0) 03/12/23 Albumin 4.1 g/dL (3.5-5.0) 03/12/23 [facility] Medical History (Updated 05/09/23 @ 10:00 by HUEY Guevara) History of pulmonary embolism Surgical History Hx of hysterectomy Hx of section Family History Mother Diabetes Heart problem Hypertension Father Mental health disorder Daughter No problems noted. Son No problems noted. Son No problems noted. Social History Alcohol intake: never Patient Tobacco Use Status: Never used Tobacco Assessment & Plan Assessment & Plan (1) Obesity (BMI 30-39.9): Code(s): E66.9 - Obesity, unspecified Patient Instructions: recommend increasing protein to 2 scoops per shake for her first one , continue the rest. did not change plan today however. talked about healthy food choices she can have when she feels hungry . 06/19 at 1pm OV , seeing Pauline the same day at 1:30pm Coding Level of Care Code Nutr Indiv Intake (55796) Diagnoses Obesity (BMI 30-39.9) E66.9 Time Spent (min) 30
[2023-05-14 16:31] VITALS: BMI 37.0
== END 2023-05-14 16:31 | disposition home or self-care (01) ==
PROVIDERS: Visit Provider Dietitian, Registered
DX: E66.9 Obesity, unspecified (principal)

== ENCOUNTER → 2023-05-14 15:19 | Outpatient (BNVA) | payer OTHER, SELFPAY | PROVIDERS: Visit Provider Dietitian, Registered | DX: E66.9 Obesity, unspecified (principal); Z68.37 Body mass index [BMI] 37.0-37.9, adult | CPT/HCPCS: 97802 ==

== ENCOUNTER 2023-06-04 09:19 | Outpatient (AMB) | payer OTHER, SELFPAY ==
--- NOTE | 2023-06-04 09:21 | MHC.OFFVISWM ---
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 Oil Heater Installer Name: office cmi Allergies tramadol Allergy (Mild, Verified 06/04/23 09:27) WEAKNESS Medication List - Last Reconciled 06/04/23 by HUEY Guevara apixaban (Eliquis) 5 mg PO DAILY aspirin 81 mg PO DAILY atorvastatin 10 mg PO DAILY buspirone 7.5 mg PO BID ergocalciferol (vitamin D2) 1,250 mcg PO QWEEK escitalopram oxalate 20 mg PO DAILY insulin glargine (Lantus Solostar U-100 Insulin) 40 units subcut DAILY insulin lispro subcut metoprolol tartrate 25 mg PO BID HPI HPI Comments History of Present Illness Details The patient is a pleasant 53 year old female who returns to the clinic for pre-operative surgical weight loss management. They were last seen in the office on 05/09/23, recorded weight at that time was 181.4 pounds, with a BMI of 36.6. Today's weight is 180.2 pounds and BMI is 36.4. There has been a weight loss of 4.6 pounds since initiating the surgical weight loss program on 03/04/23 with a total body weight loss of 2.4 %. Pre op work up completed as follows: SWL classes:? 10/02 BH appts: f/u 06/19/23 ? ? RD appts: f/u 06/19/23 Labs: 03/12/23 A1c: 8.5 H. pylori: 03/12/23-neg CXR: 03/12/23-nad EK03/12/23-normal ABD U/S: NS-03/19/23 UGI: 05/14/23 She feels as though she has hunger sometimes and she has felt weak on days and does not exercise on those days. She only started doing the shakes and meal plan 2 months ago due to financial issues The patient reports she has an appointment with cardiology on 07/21/23 for her issues w palpitations with activity. She was unable to exercise as she is awaiting appt with pulmonology for f/u from PE 06/25/22 after a surgery for her leg for venous insuff . She had f/u 05/22/23 and ok to do exercise. Current meal plan includes: 2 Premier Protein shakes ([employer], [employer], [employer]) First shake, (1 scoop in 8 oz low fat unsweetened almond milk) at 9am-11am Second shake, (1 scoop in 8 oz unsweetened almond milk) at 1pm-3pm Dinner at 5pm (7 forks of protein and 7 forks of salad/vegetables). 1 protein bar (Zone Perfect bars or Fulfil bars at [employer], [facility], or [employer]) at 7pm-9pm. Drinking 64 oz of water Current exercise plan includes: treadmill 3-4 days per week, 20-30 minutes, not tracking calories. [facility] Medical History (Updated 05/09/23 @ 10:00 by HUEY Guevara) History of pulmonary embolism Surgical History Hx of hysterectomy Hx of section Family History Mother Diabetes Heart problem Hypertension Father Mental health disorder Daughter No problems noted. Son No problems noted. Son No problems noted. Social History Alcohol intake: never Patient Tobacco Use Status: Never used Tobacco Review of Systems Const All systems reviewed & are unremarkable except as noted in HPI and below Physical Exam Vital Signs: Last Vital Signs Temp 96.4 F L 06/04/23 09:27 Pulse 80 06/04/23 09:27 BP 144/78 H 06/04/23 09:27 Pulse Ox 95 06/04/23 09:27 Oxygen Delivery Method Room Air 06/04/23 09:27 BMI result Body Mass Index 36.4 Const General: healthy appearing and no acute distress Resp Effort & Inspection: normal respiratory effort Auscultation: clear to auscultation bilaterally Cardio Rate: regular rate Rhythm: regular rhythm GI Auscultation: normal bowel sounds Extrem General: Yes normal to inspection Assessment & Plan Assessment & Plan (1) Obesity (BMI 30-39.9): Code(s): E66.9 - Obesity, unspecified Plan: She has not been exercising and now is doing 20 minutes 3 x per week. She will try to increase to daily and track calories Discussed the need to communicate by text weekly. She will return to clinic in 3 weeks. Coding Level of Care Code Est Pt Level 3 (47624) Diagnoses Obesity (BMI 30-39.9) E66.9
[2023-06-04 09:27] VITALS: BP 144/78; PULSE 80; TEMP 35.8; O2SAT 95; BMI 36.4
== END 2023-06-04 09:55 | disposition home or self-care (01) ==
PROVIDERS: Visit Provider Physician Assistant Surgical
DX: E66.9 Obesity, unspecified (principal); Z68.36 Body mass index [BMI] 36.0-36.9, adult
CPT/HCPCS: 99213

== ENCOUNTER → 2023-06-04 09:19 | Outpatient (BNVA) | payer OTHER, SELFPAY | PROVIDERS: Visit Provider Physician Assistant Surgical | DX: E66.9 Obesity, unspecified (principal); Z68.36 Body mass index [BMI] 36.0-36.9, adult | CPT/HCPCS: 99212 ==

== ENCOUNTER 2023-07-01 12:58 | Outpatient (AMB) | payer OTHER, SELFPAY ==
--- NOTE | 2023-07-01 13:13 | A.OFFVIS_ITS ---
Intake VS Expanded 07/01/23 13:17 BP 140/70 H Blood Pressure Location Rt brachial Blood Pressure Position Sitting Pulse 81 Pulse Source Pulse Oximeter Temp 97.6 F Temperature Source Temporal Artery Scan Pulse Oximetry 95 Oxygen Delivery Method Room Air Height 4 ft 11 in Weight 176 lb BMI 35.5 Body Fat % 40.9 Body Fat Mass 71.8 Fat Free Mass 104.0 Visceral Fat Rating 11.0 Body Water % 42.0 Body Water Mass 73.8 Muscle Mass/Score 98.8 Basal Metabolic Rate/Score 1,439 Intake Visit Reasons: (OV) F/U SWL Event Coordinator Marketing And Sales Required: Yes Event Coordinator Marketing And Sales Name: office cmi Allergies tramadol Allergy (Mild, Verified 07/01/23 13:15) WEAKNESS Medication List - Last Reconciled 07/01/23 by HUEY Guevara apixaban (Eliquis) 5 mg PO DAILY aspirin 81 mg PO DAILY atorvastatin 10 mg PO DAILY buspirone 7.5 mg PO BID ergocalciferol (vitamin D2) 1,250 mcg PO QWEEK escitalopram oxalate 20 mg PO DAILY insulin glargine (Lantus Solostar U-100 Insulin) 40 units subcut DAILY insulin lispro subcut metoprolol tartrate 25 mg PO BID HPI HPI Comments History of Present Illness Details The patient is a pleasant 53 year old female who returns to the clinic for pre-operative surgical weight loss management. They were last seen in the office on 06/04/23, recorded weight at that time was 180.4 pounds, with a BMI of 36.4. Today's weight is 176 pounds and BMI is 35.6. There has been a weight loss of 8.8 pounds since initiating the surgical weight loss program on 03/04/23 with a total body weight loss of 4.7 %. Pre op work up completed as follows: SWL classes:? 10/02 BH appts: f/u 06/19/23, missed, needs f/u? ? RD appts: f/u 06/19/23, missed, needs f/u Labs: 03/12/23 A1c: 8.5 H. pylori: 03/12/23-neg CXR: 03/12/23-nad EK03/12/23-normal ABD U/S: NS-03/19/23 UGI: RS for 07/30/23 She feels as though she has hunger sometimes and she has felt weak on days and does not exercise on those days. She only started doing the shakes and meal plan 2 months ago due to financial issues The patient reports she is following the meal plan. They also have not been communicating weekly. and this was discussed with her The patient reports she has an appointment with cardiology on 07/21/23 for her issues w palpitations with activity. She was unable to exercise as she was awaiting appt with pulmonology for f/u from PE 06/25/22 after a surgery for her leg for venous insuff . She had f/u 05/22/23 and ok to do exercise. Current meal plan includes: 2 Premier Protein shakes ([employer], [employer], [employer])First shake, (1 scoop in 8 oz low fat unsweetened almond milk) at 9am-11am Second shake, (1 scoop in 8 oz unsweetened almond milk) at 1pm-3pm Dinner at 5pm (7 forks of protein and 7 forks of salad/vegetables). 1 protein bar (Zone Perfect bars or Fulf il bars at [employer], [facility], or [employer]) at 7pm-9pm. Drinking 64 oz of water Current exercise plan includes: treadmill 3-4 days per week, 20-30 minutes, not tracking calories. [facility] Medical History (Updated 05/09/23 @ 10:00 by HUEY Guevara) History of pulmonary embolism Surgical History Hx of hysterectomy Hx of section Family History Mother Diabetes Heart problem Hypertension Father Mental health disorder Daughter No problems noted. Son No problems noted. Son No problems noted. Social History Alcohol intake: never Patient Tobacco Use Status: Never used Tobacco Review of Systems Const All systems reviewed & are unremarkable except as noted in HPI and below Physical Exam Const General: healthy appearing and no acute distress Resp Effort & Inspection: normal respiratory effort Auscultation: clear to auscultation bilaterally Cardio Rate: regular rate Rhythm: regular rhythm GI Auscultation: normal bowel sounds Extrem General: Yes normal to inspection Assessment & Plan Assessment & Plan (1) Obesity (BMI 30-39.9): Code(s): E66.9 - Obesity, unspecified Plan: Again discussed the importance of communication weekly which she has not been doing. Discussed importance of increasing exercise, again, and encouraged to go to use the treadmill 6 days per week or more, also discussed the importance of tracking calories again. She will get follow-up appointments with Behavioral Health and registered dietitian as well as abdominal ultrasound. Return to clinic 3 weeks. Coding Level of Care Code Est Pt Level 3 (00234) Diagnoses Obesity (BMI 30-39.9) E66.9
[2023-07-01 13:17] VITALS: BP 140/70; PULSE 81; TEMP 36.4; O2SAT 95; BMI 35.5
== END 2023-07-01 13:36 | disposition home or self-care (01) ==
PROVIDERS: Visit Provider Physician Assistant Surgical
DX: E66.9 Obesity, unspecified (principal); Z68.35 Body mass index [BMI] 35.0-35.9, adult
CPT/HCPCS: 99213

== ENCOUNTER → 2023-07-01 12:58 | Outpatient (BNVA) | payer OTHER, SELFPAY | PROVIDERS: Visit Provider Physician Assistant Surgical | DX: E66.9 Obesity, unspecified (principal); Z68.35 Body mass index [BMI] 35.0-35.9, adult | CPT/HCPCS: 99212 ==

== ENCOUNTER 2023-07-04 08:55 | Outpatient (REF) | payer OTHER, SELFPAY ==
--- NOTE | ~2023-07-04 | US_ITS ---
EXAMINATION: US COMPLETE ABDOMEN WITH LIVER ELASTOGRAPHY CLINICAL INFORMATION: Obesity. COMPARISON: None available. TECHNIQUE: Real-time imaging of the abdominal viscera. Noninvasive ultrasound liver fibrosis assessment is performed using Harmony ElastPQ point quantification shear wave elastography (2D-SWE) with a C5-2 MHz transducer. Multiple elastography samples are obtained. FINDINGS: PANCREAS: Normal. The visualized pancreatic head and proximal body are normal in appearance. The remainder of the pancreas is obscured from visualization by the overlying bowel gas. ABDOMINAL AORTA: The proximal, middle, and distal aortic segments are normal in caliber. INFERIOR VENA CAVA: Visualized portions are normal. LIVER: The liver demonstrates normal size, contour and increased echogenicity. No focal lesion or intrahepatic biliary duct dilatation. A benign, calcified granulomas seen within the anterior segment of the right hepatic lobe. The right lobe measures 15.0 cm in length. The left lobe measures 8.4 cm in length. Portal flow is towards the liver (hepatopetal). Shear wave liver elastography median stiffness is 1.31 m/s (reference: normal median stiffness is 1.3 m/s or less). IQR/median stiffness to assess sampling precision is 0.11 (reference: good quality data set is IQR/median stiffness of 0.15 or less). GALLBLADDER: Normal. The gallbladder is physiologically distended without evidence of stones, sludge, polyps, wall thickening or pericholecystic fluid. COMMON BILE DUCT: Normal in caliber measuring 0.3 cm in diameter. RIGHT KIDNEY: Normal. No hydronephrosis. No renal calculi or focal parenchymal lesions. The kidney measures 10.6 cm in maximum dimension. LEFT KIDNEY: At the interpolar aspect, a 9 mm nonobstructing calculus is seen. No hydronephrosis. No focal parenchymal lesions. The kidney measures 9.6 cm in maximum dimension. SPLEEN: Normal. The spleen measures 10.0 cm in maximum dimension. FREE FLUID: None. US/US abdomen comp w elastography IMPRESSION: 1. There is generalized increase in hepatic echotexture, consistent with fatty infiltration or hepatocellular disease. Please correlate clinically. No focal hepatic mass or intrahepatic biliary dilatation is seen. 2. Liver elastography: In the absence of other known clinical signs, measurements rule out compensated advanced chronic liver disease. If there are known clinical signs, further testing may be needed for confirmation. 3. Technically limited ultrasound examination of the pancreas. REFERENCE: Society of Radiologists in Ultrasound Liver Stiffness Thresholds (2020): LIVER STIFFNESS THRESHOLDS: *Liver Stiffness equal or less than 1.3 m/s: High probability of being normal. *Liver Stiffness less than 1.7 m/s: In the absence of other known clinical signs, rules out compensated advanced chronic liver disease. *Liver Stiffness 1.7-2.1 m/s: Suggestive of compensated advanced chronic liver disease but need further test for confirmation. *Liver Stiffness over 2.1 m/s: Rules in compensated advanced chronic liver disease. *Liver Stiffness over 2.4 m/s: Suggestive of clinically significant portal hypertension. QUALITY OF DATA SET: *IQR/Median value equal or less than 0.15 implies a quality data set. *IQR/Median value over 0.15 implies a poor quality data set. SIGNIFICANT CHANGE FROM PRIOR EXAM: Significant change if liver stiffness measurement is 10% or greater from prior exam. OTHER CONSIDERATIONS: The stage of liver fibrosis may be overestimated in the setting of acute hepatitis, liver inflammation, elevated liver function tests, hepatic vascular congestion, obstructive cholestasis, non-fasting state, and infiltrative diseases such as amyloidosis and lymphoma. In some patients with NAFLD, the liver stiffness thresholds for compensated advanced chronic liver disease may be lower. In causes other than viral hepatitis and NAFLD, liver stiffness thresholds are not well established.
== END 2023-07-04 08:56 | disposition home or self-care (01) ==
LOC: HO.US 08:55
PROVIDERS: PCP Nurse Practitioner Family; Visit Provider Physician Assistant Surgical
DX: E66.9 Obesity, unspecified (principal); E11.9 Type 2 diabetes mellitus without complications; I10 Essential (primary) hypertension; E78.00 Pure hypercholesterolemia, unspecified
CPT/HCPCS: 76705; 76981

== ENCOUNTER 2023-07-21 08:15 | Outpatient (AMB) | payer OTHER, SELFPAY ==
--- NOTE | 2023-07-21 08:33 | MHC.OFFVIS ---
Intake Vital Signs 07/21/23 08:35 Height 4 ft 11 in Weight 179 lb 0.246 oz BMI 36.2 BP 102/70 Blood Pressure Location Lt brachial Position Sitting Pulse 79 Intake Visit Reasons: NPV/Palpitations/HTN/M. Demarco Intake Note: NPV Avionics Repair Technician Required: Yes Avionics Repair Technician Language: Fuel Distribution System Operator Name: Myriam [id number] Accompanied by: Self / Same As Patient Allergies tramadol Allergy (Mild, Verified 07/21/23 08:37) WEAKNESS Medication List - Last Reconciled 07/21/23 by Mayank Sanabria MD apixaban (Eliquis) 5 mg PO DAILY aspirin 81 mg PO DAILY atorvastatin 10 mg PO DAILY buspirone 7.5 mg PO BID ergocalciferol (vitamin D2) 1,250 mcg PO QWEEK escitalopram oxalate 20 mg PO DAILY insulin glargine (Lantus Solostar U-100 Insulin) 40 units subcut DAILY insulin lispro subcut metoprolol tartrate 25 mg PO BID HPI HPI Comments History of Present Illness Details Cindi is here for consultation regarding palpitations. She has been referred for bariatric. Multiple comorbidities including obesity, diabetes, dyslipidemia, DERECK. Per patient, whenever she is doing anything physically active, she may feel her heart racing. However, she does not feel any anginal-type chest pains. No known coronary disease or myocardial infarction. [facility] Medical History (Updated 07/21/23 @ 09:36 by Mayank Sanabria MD) Hypercholesterolemia HTN (hypertension) Diabetes Obesity (BMI 30-39.9) History of pulmonary embolism Surgical History Hx of hysterectomy Hx of section Family History Mother Diabetes Heart problem Hypertension Father Mental health disorder Daughter No problems noted. Son No problems noted. Son No problems noted. Alcohol intake: never Patient Tobacco Use Status: Never used Tobacco Review of Systems Const Denies chills, Denies daytime sleepiness, Denies fatigue, Denies fever(s), Denies frequent falls, Denies night sweats, Denies snoring, Denies weakness, Denies weight gain and Denies weight loss Eyes Denies loss of vision ENT Denies dizziness and Denies hearing loss Card Denies chest pain, Denies chest pain with activity, Denies syncope, Denies rapid heart rate, Denies edema, Denies claudication, Denies leg edema, Denies lightheadedness, Denies palpitations, Denies dyspnea, Denies dyspnea on exertion and Denies orthopnea Resp Denies cough, Denies excessive phlegm production, Denies dyspnea, Denies dyspnea on exertion, Denies snoring and Denies wheezing GI Denies abdominal pain, Denies hematochezia, Denies change in bowel habits, Denies change in stool character, Denies heartburn, Denies nausea and Denies vomiting Denies hematuria, Denies urinary frequency and Denies dysuria Musc Denies arthralgias, Denies muscle weakness, Denies numbness and Denies tingling Skin/Breast Denies nail changes and Denies rash Neuro Denies Abnormal speech present, Denies dizziness, Denies syncope, Denies frequent falls, Denies loss of vision, Denies memory loss, Denies numbness, Denies tingling and Denies weakness Psych Denies depression and Denies memory loss Endo Denies fatigue and Denies palpitations Aller/Immun Denies wheezing Physical Exam Vital Signs: Last Vital Signs Pulse 79 07/21/23 08:35 BP 102/70 07/21/23 08:35 BMI result Body Mass Index 36.2 Const General: comfortable and no acute distress Orientation/consciousness: patient oriented x3 HEENT Other: Unremarkable Head: Yes normal to inspection Neck Neck: Yes normal visual inspection Chest Chest palpation & inspection: normal inspection of the chest Resp Auscultation: clear to auscultation bilaterally Cardio Palpation: normal PMI Heart sounds: S1 normal heart sound present, S2 normal heart sound present, no gallops, no murmurs and no rubs GI Palpation (GI): Soft to palpation Back/Spine/Pelvis Other: unremarkable Skin General skin exam: no rashes or lesions noted Neuro General: patient oriented x3 Speech: No Abnormal speech present Extrem General: Yes normal to inspection Psych Mental Status: mental status grossly normal Assessment & Plan Assessment & Plan (1) Heart palpitations: Code(s): R00.2 - Palpitations Plan Exertional type palpitations, many comorbidities. It could be just sinus tachycardia but also need to evaluate for supraventricular arrhythmias. Unlikely ventricular etiology without pre-existing CAD or cardiomyopathy. We will start with a comprehensive workup including echocardiogram, stress test and Holter. Based on findings, we can plan further care. Orders: Orders CA echo transthoracic complete Today I25.10 - Atherosclerotic heart disease of [place] coronary artery without angina pectoris, R00.2 - Palpitations ECG 3 day holter monitor Today R00.2 - Palpitations CA stress test Today R00.2 - Palpitations, R07.2 - Precordial pain Coding Level of Care Code New Pt Level 4 (41565) Diagnoses Heart palpitations R00.2
[2023-07-21 08:35] VITALS: BP 102/70; PULSE 79; BMI 36.2
== END 2023-07-21 08:57 | disposition home or self-care (01) ==
PROVIDERS: Visit Provider Internal Medicine
DX: R00.2 Palpitations (principal)
CPT/HCPCS: 99204

== ENCOUNTER → 2023-07-21 08:15 | Outpatient (BNVA) | payer OTHER, SELFPAY | PROVIDERS: Visit Provider Internal Medicine | DX: R00.2 Palpitations (principal); F32.A Depression, unspecified | CPT/HCPCS: 99202 ==

== ENCOUNTER 2023-07-21 12:30 | Outpatient (AMB) | payer OTHER, SELFPAY ==
--- OUTSIDE RECORDS SUMMARY | 2023-07-21 12:57 | XMS_ITS | Continuity of Care Document ---
Author Name Unknown Organization [facility] Address [address] [place] [address]- Care Team Providers Care Renewable Energy Engineer Name Role Phone Renato MORRISON, Milton Loyola Primary Care Physicia n Encounter [facility] Date(s): 07/19/20 - 10/08/20 [facility] [address] [place] [address]- Attending Physician: Akhil Eastman MD Admitting Physician: Akhil Eastman MD Referring Physician: Milton Gross NP Allergies, Adverse Reactions, Alerts Substance Reaction Severity Status traMADol tongue numbness--but she fell near loc Active Immunizations Given and Recorded Vaccine Date Status Refusal Reason influenza virus vaccine, inactivated 06/01/20 Give n influenza virus vaccine, inactivated 05/13/17 Give n hepatitis B adult vaccine 01/18/16 Given pneumococcal 23-valent vaccine 01/18/16 Given tetanus/diphtheria/pertussis, acel(Tdap) 01/18/16 Given Not Given Vaccine Date Status Refusal Reason influenza virus vaccine, inactivated 11/12/14 Not Given Patient Refuses pneumococcal 23-valent vaccine 11/12/14 Not Given Patient Refuses Medications albuterol 0.083% inhalation solution 3 mL = 2.5 mg, Inhalation, Every 6 hours, PRN for wheezing, # 25 each, 11 Refills, Maintenance, 10/06/20 12:25:00 EST, Solution, [id number], 152, cm, 06/01/20 9:54:00 EDT, Height, 81, kg, 11/01/19 19:28:00 EDT, Dry Weight Start Date: 10/06/20 Status: Ordered albuterol CFC free 90 mcg/inh inhalation aerosol 2, puffs, Inhalation, Every 4 hours, PRN, # 18 Gm, Refills 11, Tot. Refills 11, Maintenance, 10/06/20 12:25:00 EST, Aerosol, Route to Pharmacy Electronically, [id number], [facility]/pharmacy #[id number], 152, cm, 06/01/20 9:54:00 EDT, Hei... Start Date: 10/06/20 Status: Ordered Alcohol Wipes See Instructions, # 100 each, Refills 5, Tot. Refills 5, Maintenance, DM 250.02. Use before BS control and lantus, 10/06/20 12:19:00 EST, Compound, 152, cm, 06/01/20 9:54:00 EDT, Height, 81, kg, 11/01/19 19:28:00 EDT, Dry Weight Start Date: 10/06/20 Status: Ordered Anusol-HC 2.5% cream with applicator 1 application, Rectally, 2 times a day, for 7 days, # 30 Gm, 2 Refills, Acute 10/27/20 12:21:00 EST, 10/06/20 12:21:00 EST, Cream, [facility]/pharmacy #[id number], 1 application Rectally 2 times a day,x7 days, 152, cm, 06/01/20 9:54:00 EDT, Height, 81, kg, ... Start Date: 10/06/20 Stop Date: 10/27/20 Status: Ordered aspirin 81 mg oral delayed release tablet 81 mg, 1, tablet, By Mouth, Daily, # 30 tablet, Refills 11, Tot. Refills 11, Maintenance, 10/06/20 12:25:00 EST, Route to Pharmacy Electronically, [facility]/pharmacy #[id number], 152, cm, 06/01/20 9:54:00 EDT, Height, 81, kg, 11/01/19 19:28:00 EDT, Dry Weight Start Date: 10/06/20 Status: Ordered BD Ultra-Fine pen needles, BERTRAM 4 mm x 32 G BD Ultra-Fine pen needles, BERTRAM 4 mm x 32 G, See Instructions, # 150 each, Refills 11, Tot. [id number], Maintenance, Use for times a days with insulin. DM E119, 10/06/20 12:18:00 EST, Compound, 152, cm, 06/01/20 9:54:00 EDT, Height, 81, kg, 11/01/19 1... Start Date: 10/06/20 Status: Ordered Blood Pressure Monitor See Instructions, # 1 each, Maintenance, check daily, 12/23/16 10:42:41, Compound Start Date: 12/23/16 Status: Ordered Colace sodium 100 mg oral capsule 100 mg, 1, capsule, By Mouth, 2 times a day, PRN, # 60 capsule, Refills 5, Tot. Refills 5, Maintenance, for constipation, 11/28/20 10:24:00 EDT, Route to Pharmacy Electronically, [facility]/pharmacy #[id number], 152, cm, 06/01/20 9:54:00 EDT, Height, 81, kg, 10/31... Start Date: 11/28/20 Stop Date: 05/27/21 Status: Ordered Colace sodium 100 mg oral capsule 100 mg, 1, capsule, By Mouth, 2 times a day, PRN, for 30 days, # 60 capsule, Refills 5, Tot. Refills 5, Hard Stop 11/28/20 10:24:00 EDT, for constipation, 06/01/20 10:24:00 EDT, [id number], cm, 06/01/20 9... Start Date: 06/01/20 Stop Date: 11/28/20 Status: Ordered Compression Stockings See Instructions, # 2 each, Refills 2, Tot. Refills 2, Maintenance, surgical, knee length 20-30 mm Hg Dx: I83.899, 07/19/20 11:47:00 EST, Supply Start Date: 07/19/20 Status: Ordered CPAP Machine See Instructions, # 1 each, Refills 0, Tot. Refills 0, Maintenance, AutoCPAP 8 , 07/28/20 16:23:00 EST, Compound, 152, cm, 06/01/20 9:54:00 EDT, Height, 81, kg, 11/01/19 19:28:00 EDT, Dry Weight Start Date: 07/28/20 Status: Ordered Escitalopram By Mouth, Daily, 0 Refills, Maintenance, 05/13/19 15:46:32 EDT Start Date: 05/13/19 Status: Ordered Eucerin Plus topical lotion 1 application, Topically, 2 times a day, PRN for dry skin, # 600 mL, 11 Refills, Maintenance, 10/06/20 12:22:00 EST, Lotion, [facility]/pharmacy #[id number], 1 application Topically 2 times a day,PRN:for dry skin, 152, cm, 06/01/20 9:54:00 EDT, Height, 81, kg, ... Start Date: 10/06/20 Status: Ordered Freestyle Lancets See Instructions, # 100 each, Refills 11, Tot. Refills 11, Maintenance, E11.65 tests tid ; on insulin, 10/06/20 12:19:00 EST, Compound, 152, cm, 06/01/20 9:54:00 EDT, Height, 81, kg, 11/01/19 19:28:00 EDT, Dry Weight Start Date: 10/06/20 Status: Ordered Freestyle Lite Monitor See Instructions, # 1 each, Maintenance, DM E 11.9, check TID, 10/06/20 12:40:00 EST, Compound, 152, cm, 06/01/20 9:54:00 EDT, Height, 81, kg, 11/01/19 19:28:00 EDT, Dry Weight Start Date: 10/06/20 Status: Ordered Freestyle Lite Test Strips See Instructions, # 100 each, Refills 11, Tot. Refills 11, Maintenance, E11.65 on insulin To Test TID, 10/06/20 12:19:00 EST, Compound, 152, cm, 06/01/20 9:54:00 EDT, Height, 81, kg, 11/01/19 19:28:00 EDT, Dry Weight Start Date: 10/06/20 Status: Ordered Humalog 100 u/ml subcutaneous injection = 15 units, Subcutaneous Injection, 3 times a day before meals, discontinue admelog, # 15 mL, 11 Refills, Maintenance, 10/06/20 12:21:00 EST, Solution, [facility]/pharmacy #[id number], Partial fill upon patient request if the prescription is for a schedule II opio... Start Date: 10/06/20 Status: Ordered HumaLOG KwikPen 100 units/mL injectable solution = 15 units, Subcutaneous Infusion, 3 times a day before meals, Dx E11.9. D/C admelog same dose 15 units . give kwik pen, # 15 mL, 11 Refills, Maintenance, 10/06/20 12:20:00 EST, [facility]/pharmacy #[id number], 152, cm, 06/01/20 9:54:00 EDT, Height, 81, kg, ... Start Date: 10/06/20 Stop Date: 10/01/21 Status: Ordered Imitrex 50 mg oral tablet See Instructions, 1 tablet By Mouth at onset of headache. May repeat once in 2 hours. Not > 4/ week., # 9 tablet, 0 Refills, Maintenance, 01/03/20 13:01:00 EDT, [id number], 152, cm, 11/01/19 19:28:00 EDT, Height, 81, kg, 11/01/19 19:28:00 EDT,... Start Date: 01/03/20 Status: Ordered Insulin Syringe, BD Ultra-Fine 0.3 cc 31 G x 8 mm (5/16in) See Instructions, # 100 each, Refills 5, Tot. Refills 5, Maintenance, use as directed for Type 1 Diabetes Mellitus. DM 250.02. can give small needle if insurance covers., 05/18/19 9:28:15 EDT, Compound Start Date: 05/18/19 Stop Date: 06/17/19 Status: Ordered Lantus Solostar Pen 100 units/mL subcutaneous solution = 33 units, Subcutaneous Injection, Daily, for 30 days, DM E 11.9., # 15 mL, 11 Refills, Hard Stop 10/01/21 12:17:00 EST, 10/06/20 12:17:00 EST, Solution, [id number], 152, cm, 06/01/20 9:54:00 EDT, Height, 81, kg, 11/01/19 19:28:00 EDT, Dry We... Start Date: 10/06/20 Stop Date: 10/01/21 Status: Ordered loratadine 10 mg oral tablet 10 mg, 1, tablet, By Mouth, Daily, # 30 tablet, Refills 5, Tot. Refills 5, Maintenance, 02/20/21 9:48:00 EDT, Route to Pharmacy Electronically, [facility]/pharmacy #[id number], 152, cm, 06/01/20 9:54:00 EDT, Height, 81, kg, 11/01/19 19:28:00 EDT, Dry Weight Start Date: 02/20/21 Stop Date: 08/19/21 Status: Ordered loratadine 10 mg oral tablet 10 mg, 1, tablet, By Mouth, Daily, for 30 days, # 30 tablet, Refills 5, Tot. Refills 5, Hard Stop 02/20/21 9:48:00 EDT, 08/24/20 9:48:00 EST, Route to Pharmacy Electronically, [facility], 152, cm, 06/01/20 9:54:00 EDT, Height, 81, kg, ... Start Date: 08/24/20 Stop Date: 02/20/21 Status: Ordered meclizine 25 mg oral tablet 1 tablet = 25 mg, By Mouth, 3 times a day, PRN Dizziness, for 14 days, # 50 tablet, 1 Refills, Acute 11/03/20 12:27:00 EST, 10/06/20 12:27:00 EST, Tablet, [facility]/pharmacy #[id number], Partial fill upon patient request if the prescription is for a schedule II o... Start Date: 10/06/20 Stop Date: 11/03/20 Status: Ordered metoprolol 25 mg oral tablet 25 mg, 1, tablet, By Mouth, 2 times a day, for 90 days, This is an increase in dose., # 180 tablet,Refills 3, Tot. Refills 3, Hard Stop 10/21/21 16:17:00 EST, 10/26/20 16:17:00 EST, Route to Pharmacy Electronically, [facility]/pharmacy #[id number], 152, cm, 06/01... Start Date: 10/26/20 Stop Date: 10/21/21 Status: Ordered metoprolol 25 mg oral tablet 25 mg, 1, tablet, By Mouth, 2 times a day, for 90 days, This is an increase in dose., # 180 tablet,Refills 3, Tot. Refills 3, Hard Stop 10/26/20 16:17:00 EST, 11/01/19 16:17:00 EDT, Route to Pharmacy Electronically, [facility]/pharmacy #[id number], 152, cm, 10/22... Start Date: 11/01/19 Stop Date: 10/26/20 Status: Ordered mupirocin 2% topical ointment 1 application, Topically, 3 times a day, for 10 days, # 22 Gm, 1 Refills, Acute 10/26/20 12:24:00 EST, 10/06/20 12:24:00 EST, Ointment, [facility]/pharmacy #[id number], Partial fill upon patient request if the prescription is for a schedule II opioid drug., 1 appl... Start Date: 10/06/20 Stop Date: 10/26/20 Status: Ordered riboflavin 100 mg oral tablet 1 tablet = 100 mg, By Mouth, 2 times a day, # 60 tablet, 4 Refills, Maintenance, 10/06/20 12:25:00 EST, [facility]/pharmacy #[id number], 152, cm, 06/01/20 9:54:00 EDT, Height, 81, kg, 11/01/19 19:28:00 EDT, Dry Weight Start Date: 10/06/20 Stop Date: 03/05/21 Status: Ordered sulindac 150 mg oral tablet See Instructions, TOME KRYSTEN TABLETA POR VIA ORAL DOS VECES AL JULIAN CUANDO SEA NECESARIO, # 60 tablet,2 Refills, 06/01/20 10:19:00 EDT, [facility]/pharmacy #[id number], 152, cm, 06/01/20 9:54:00 EDT, Height, 81, kg, 11/01/19 19:28:00 EDT, Dry Weight Start Date: 06/01/20 Status: Ordered Vitamin D3 1000 intl units oral tablet 1 tablet = 1,000 International_Units, By Mouth, Daily, # 30 tablet, 11 Refills, Maintenance, 10/06/20 12:25:00 EST, Tablet, [facility]/pharmacy #[id number], 152, cm, 06/01/20 9:54:00 EDT, Height, 81, kg, 10/31/2018:28:00 EDT, Dry Weight Start Date: 10/06/20 Status: Ordered Problem List Condition Effective Dates Status Health Status Inform ant Annual physical exam(Confirmed) Active Asthma(Confirmed) Active Depression(Confirmed) Active Diabetes mellitus(Confirmed) Active Hypertension(Confirmed) Active Lactic acidosis(Confirmed) Active Meningioma(Confirmed) Active Obstructive sleep apnea(Confirmed) Active Social History Social History Type Response Smoking Status Never smoker; Tobacc o user in household: No; Type: Cigarettes entered on: 11/07/14 Sex
--- OUTSIDE RECORDS SUMMARY | 2023-07-21 12:57 | XMS_ITS | Continuity of Care Document ---
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 Loading Machine Tool Setter Name Role Phone Renato MORRISON, Milton Loyola Primary Care Physicia n Encounter [facility] Date(s): 07/19/20 - 09/21/20 [facility] [address] [place], [place] [address] Attending Physician: Akhil Eastman MD Admitting Physician: Akhil Eastman MD Referring Physician: Akhil Eastman MD Allergies, Adverse Reactions, Alerts Substance Reaction Severity [...] vaccine 11/12/14 Not Given Patient Refuses Medications Admelog SoloStar 100 units/mL injectable solution = 15 units, Subcutaneous Injection, 3 times a day before meals, for 30 days, INJECT 15 UNITS POR V?A SUBCUT?LULÚ GIBRAN VECES AL D?A ANTES DE LAS COMIDAS, # 15 mL, 11 Refills, Physician Stop 10/16/20 12:40:00 EST, 10/22/19 12:40:00 EST, [id number] Start Date: 10/22/19 Stop Date: 10/16/20 Status: Ordered albuterol 0.083% inhalation solution 3 mL = 2.5 mg, Inhalation, Every 6 hours, PRN for wheezing, # 25 each, 11 Refills, Maintenance, 06/01/20 10:23:00 EDT, Solution, [facility]/pharmacy #[id number], 152, cm, 06/01/20 9:54:00 EDT, Height, 81, kg, 11/01/19 19:28:00 EDT, Dry Weight Start Date: 06/01/20 Status: Ordered albuterol CFC free 90 mcg/inh inhalation aerosol 2, puffs, Inhalation, Every 4 hours, PRN, # 18 Gm, Refills 11, Tot. Refills 11, Maintenance, 06/01/20 10:23:00 EDT, Aerosol, Route to Pharmacy Electronically, [id number], [facility]/pharmacy #[id number], 152, cm, 06/01/20 9:54:00 EDT, Hei... Start Date: 06/01/20 Status: Ordered Alcohol Wipes See Instructions, # 100 each, Refills 5, Tot. Refills 5, Maintenance, DM 250.02. Use before BS control and lantus, 12/20/19 16:45:00 EDT, Compound, 152, cm, 11/01/19 19:28:00 EDT, Height, 81, kg, 11/01/19 19:28:00 EDT, Dry Weight Start Date: 12/20/19 Status: Ordered aspirin 81 mg oral delayed release tablet 81 mg, 1, tablet, By Mouth, Daily, # 30 tablet, Refills 11, Tot. Refills 11, Maintenance, 06/01/20 10:23:00 EDT, Route to Pharmacy Electronically, [facility]/pharmacy #[id number], 152, cm, 06/01/20 9:54:00 EDT, Height, 81, kg, 11/01/19 19:28:00 EDT, Dry Weight Start Date: 06/01/20 Status: Ordered BD Ultra-Fine pen needles, BERTRAM 4 mm x 32 G BD Ultra-Fine pen needles, BERTRAM 4 mm x 32 G, See Instructions, # 150 each, Refills 11, Tot. [id number], Maintenance, Use for times a days with insulin. DM E119, 05/26/19 15:33:20 EDT, Compound Start Date: 05/26/19 Status: Ordered Blood Pressure Monitor See Instructions, # 1 each, Maintenance, check daily, 12/23/16 10:42:41, Compound Start Date: 12/23/16 Status: Ordered cetirizine 10 mg oral tablet 1 tablet = 10 mg, By Mouth, Daily, # 30 tablet, 5 Refills, Maintenance, 12/01/18 15:21:11 EDT, Tablet Start Date: 12/01/18 Stop Date: 05/30/19 Status: Ordered Colace sodium 100 mg oral capsule 100 mg, 1, capsule, By Mouth, 2 times a day, PRN, # 60 capsule, Refills 5, Tot. Refills 5, Maintenance, for constipation, 06/01/20 10:24:00 EDT, Route to Pharmacy Electronically, [facility]/pharmacy #[id number], 152, cm, 06/01/20 9:54:00 EDT, Height, 81, kg, 10/31... Start Date: 06/01/20 Stop Date: 11/28/20 Status: Ordered Compression Stockings See Instructions, # 2 each, Refills 2, Tot. Refills 2, Maintenance, surgical, knee length 20-30 mm Hg Dx: I83.899, 07/19/20 11:47:00 EST, Supply Start Date: 07/19/20 Status: Ordered CPAP Machine See Instructions, # 1 each, Refills 0, Tot. Refills 0, Maintenance, AutoCPAP 8 20, 07/28/20 16:23:00 EST, Compound, 152, cm, 06/01/20 9:54:00 EDT, Height, 81, kg, 11/01/19 19:28:00 EDT, Dry Weight Start Date: 07/28/20 Status: Ordered Escitalopram By Mouth, Daily, 0 Refills, Maintenance, 05/13/19 15:46:32 EDT Start Date: 05/13/19 Status: Ordered Eucerin Plus topical lotion 1 application, Topically, 2 times a day, PRN for dry skin, # 354 mL, 11 Refills, Maintenance, 06/01/20 10:19:00 EDT, Lotion, [facility]/pharmacy #[id number], 1 application Topically 2 times a day,PRN:for dry skin, 152, cm, 06/01/20 9:54:00 EDT, Height, 81, kg, 03/... Start Date: 06/01/20 Status: Ordered Freestyle Lancets See Instructions, # 100 each, Refills 11, Tot. Refills 11, Maintenance, E11.65 tests tid ; on insulin, 05/18/19 9:28:18 EDT, Compound Start Date: 05/18/19 Status: Ordered Freestyle Lite Monitor See Instructions, # 1 each, Maintenance, DM E 11.9, check TID, 05/18/19 9:28:16 EDT, Compound Start Date: 05/18/19 Status: Ordered Freestyle Lite Test Strips See Instructions, # 100 each, Refills 11, Tot. Refills 11, Maintenance, E11.65 on insulin To Test TID, 05/18/19 12:03:52 EDT, Compound Start Date: 05/18/19 Status: Ordered Imitrex 50 mg oral tablet See Instructions, 1 tablet By Mouth at onset of headache. May repeat once in 2 hours. Not > 4/ week., # 9 tablet, 0 Refills, Maintenance, 01/03/20 13:01:00 EDT, [facility]/pharmacy #[id number], 152, cm, 11/01/19 19:28:00 EDT, Height, [...] Date: 05/18/19 Stop Date: 06/17/19 Status: Ordered loratadine 10 mg oral tablet 10 mg, 1, tablet, By Mouth, Daily, # 30 tablet, Refills 5, Tot. Refills 5, Maintenance, 08/24/20 9:48:00 EST, Route to Pharmacy Electronically, [facility], 152, cm, 06/01/20 9:54:00 EDT, Height, 81, kg, 11/01/19 19:28:00 EDT, Dry Weight Start Date: 08/24/20 Stop Date: 02/20/21 Status: Ordered Meclizine By Mouth, 3 times a day, 0 Refills, Maintenance, 05/13/19 15:48:17 EDT Start Date: 05/13/19 Status: Ordered metoprolol 25 mg oral tablet 25 mg, 1, tablet, By Mouth, 2 times a day, This is an increase in dose., # 180 tablet, Refills 3, Tot. Refills 3, Maintenance, 10/26/20 16:17:00 EST, Route to Pharmacy Electronically, [facility]/pharmacy #[id number], 152, cm, 06/01/20 9:54:00 EDT, Height, 81, kg,... Start Date: 10/26/20 Stop Date: 10/21/21 Status: Ordered metoprolol 25 mg oral tablet 25 mg, 1, tablet, By Mouth, 2 times a day, for 90 days, This is an increase in dose., # 180 tablet,Refills 3, Tot. Refills 3, Hard Stop 10/26/20 16:17:00 EST, 11/01/19 16:17:00 EDT, Route to Pharmacy Electronically, [facility]/pharmacy #[id number], 152, cm, 10/22... Start Date: 11/01/19 Stop Date: 10/26/20 Status: Ordered riboflavin 100 mg oral tablet 1 tablet = 100 mg, By Mouth, 2 times a day, # 60 tablet, 4 Refills, Maintenance, 01/03/20 13:00:00 EDT, [facility]/pharmacy #[id number], 152, cm, 11/01/19 19:28:00 EDT, Height, 81, kg, 11/01/19 19:28:00 EDT, Dry Weight Start Date: 01/03/20 Stop Date: 06/01/20 Status: Ordered sulindac 150 mg oral tablet See Instructions, TOME KRYSTEN TABLETA POR VIA ORAL DOS VECES AL JULIAN CUANDO SEA NECESARIO, # 60 tablet,2 Refills, 06/01/20 10:19:00 EDT, [facility]/pharmacy #[id number], 152, cm, 06/01/20 9:54:00 EDT, Height, 81, kg, 11/01/19 19:28:00 EDT, Dry Weight Start Date: 06/01/20 Status: Ordered Vitamin D3 1000 intl units oral tablet 1 tablet = 1,000 International_Units, By Mouth, Daily, # 30 tablet, 11 Refills, Maintenance, 05/21/19 17:46:41 EDT, Tablet Start Date: 05/21/19 Status: Ordered Problem List Condition Effective Dates Status Health Status Inform ant Annual physical exam(Confirmed) Active Asthma(Confirmed) Active Depression(Confirmed) Active Diabetes mellitus(Confirmed) Active Hypertension(Confirmed) Active Lactic acidosis(Confirmed) Active Meningioma(Confirmed) Active Obstructive sleep apnea(Confirmed) Active Social History Social History Type Response Smoking Status Never smoker; Tobacc o user in household: No; Type: Cigarettes entered on: 11/07/14 Sex
--- OUTSIDE RECORDS SUMMARY | 2023-07-21 12:57 | XMS_ITS | Continuity of Care Document ---
Author Name Unknown Organization [facility] Address [address] [facility], [address], [address] [place] [address]- Care Team Providers Care Tieing Machine Operator Name Role Phone Milton Gross NP Primary Care Physicia n Encounter [facility] Date(s): 01/03/20 - 01/10/20 [facility] [address], [address], [address] [place] [id number] [facility] Attending Physician: Willi Chavez Referring Physician: Milton Gross NP Allergies, Adverse Reactions, Alerts Substance Reaction Severity Status traMADol tongue numbness--but she fell near loc Active Immunizations Given and Recorded Vaccine Date Status Refusal Reason influenza virus vaccine, inactivated 05/13/17 Give n [...] wheezing, # 25 each, 11 Refills, Maintenance, 11/02/18 18:58:55 EDT, Solution Start Date: 11/02/18 Status: Ordered albuterol CFC free 90 mcg/inh inhalation aerosol 2, puffs, Inhalation, Every 4 hours, PRN, # 18 Gm, Refills 11, Tot. Refills 11, Maintenance, 11/02/18 18:58:54 EDT, Aerosol, Route to Pharmacy Electronically, [id number], [facility]/pharmacy #[id number], Compound Start Date: 11/02/18 Status: Ordered Alcohol Wipes See Instructions, # [...] tablet, Refills 11, Tot. Refills 11, Maintenance, 11/02/18 18:58:53 EDT, Route to Pharmacy Electronically, [id number], [facility]/pharmacy #[id number] Start Date: 11/02/18 Status: Ordered BD Ultra-Fine pen needles, BERTRAM 4 mm x 32 G BD Ultra-Fine pen needles, BERTRAM 4 mm x 32 G, See Instructions, # 150 each, Refills 11, Tot. [id number], Maintenance, Use for times a days with [...] 5, Tot. Refills 5, Maintenance, for constipation, 11/02/18 18:58:54 EDT, Route to Pharmacy Electronically, [id number], [facility]/pharmacy #[id number] Start Date: 11/02/18 Stop Date: 05/01/19 Status: Ordered CPAP Machine See Instructions, # 1 each, Maintenance, AutoCPAP 8 20, 09/29/18 14:12:26 EST, Compound Start Date: 09/29/18 Status: Ordered Escitalopram By Mouth, Daily, 0 Refills, Maintenance, 05/13/19 15:46:32 EDT Start Date: 05/13/19 Status: Ordered Freestyle Lancets See Instructions, # [...] tablet, 0 Refills, Maintenance, 01/03/20 13:01:00 EDT, [facility]/pharmacy #[id number], 152, cm, 11/01/19 19:28:00 [...] # 15 mL, 11 Refills, Hard Stop 10/22/20 19:01:32 EST, 10/28/19 19:01:32 EST, Solution Start Date: 10/28/19 Stop Date: 10/22/20 Status: Ordered loratadine 10 mg oral tablet 10 mg, 1, tablet, By Mouth, Daily, # 30 tablet, Refills 1, Tot. Refills 1, Maintenance, 11/16/19 10:57:00 EDT, Route to Pharmacy Electronically, [facility]/pharmacy #[id number], 152, cm, 11/01/19 19:28:00 EDT, Height, 81, kg, 11/01/19 19:28:00 EDT, Dry Weight Start Date: 11/16/19 Stop Date: 01/15/20 Status: Ordered Meclizine By Mouth, 3 times a day, 0 Refills, Maintenance, 05/13/19 15:48:17 EDT Start Date: 05/13/19 Status: Ordered metoprolol 25 mg oral tablet 25 mg, 1, tablet, By Mouth, 2 times a day, This is an increase in dose., # 180 tablet, Refills 3, Tot. Refills 3, Maintenance, 11/01/19 16:17:00 EDT, Route to Pharmacy Electronically, [facility]/pharmacy #[id number], 152, cm, 10/22/19 15:02:00 EST, Height Start Date: 11/01/19 Stop Date: 10/26/20 Status: Ordered riboflavin 100 mg oral tablet 1 tablet = 100 mg, By Mouth, 2 times a day, # 60 tablet, 4 Refills, Maintenance, 01/03/20 13:00:00 EDT, [facility]/pharmacy #[id number], 152, cm, 11/01/19 19:28:00 EDT, Height, 81, kg, 11/01/19 19:28:00 EDT, Dry Weight Start Date: 01/03/20 Stop Date: 06/01/20 Status: Ordered sulindac 150 mg oral tablet 1 tablet = 150 mg, By Mouth, 2 times a day, for 30 days, TOME KRYSTEN TABLETA POR V?A ORAL DOS VECES ALD?A CUANDO SEA NECESARIO PARA EL DOLOR, # 60 tablet, 2 Refills, Physician Stop 01/20/20 12:40:00 EDT, 10/22/19 12:40:00 EST, [id number], 152, c... Start Date: 10/22/19 Stop Date: 01/20/20 Status: Ordered Vitamin D3 1000 intl units [...]
--- OUTSIDE RECORDS SUMMARY | 2023-07-21 12:57 | XMS_ITS | Continuity of Care Document ---
Author Name Unknown Organization [facility] Address [address] [place] [address]- Care Team Providers Care Supervisor Engine [employer] Name Role Phone Renato MORRISON, Milton Loyola Primary Care Physicia n [place] [facility] [place]30[place] - 12/30/[address] [id number]- Allergies, Adverse Reactions, Alerts Substance Reaction Severity [...] vaccine 11/12/14 Not Given Patient Refuses Medications acetaminophen 325 mg oral tablet 975 mg, 3, tablet, By Mouth, Every 4 hours, PRN, # 30 tablet, Refills 0, Tot. Refills 0, Acute 01/06/21 15:15:00 EDT, as needed for pain, 12/22/20 13:56:00 EDT, Route to Pharmacy Electronically, [facility]/pharmacy #[id number], Partial fill upon patient request if... Start Date: 12/22/20 Stop Date: 01/06/21 Status: Ordered albuterol 0.083% inhalation solution 3 mL = 2.5 mg, Inhalation, Every 6 hours, PRN for wheezing, # 25 each, 11 Refills, Maintenance, 10/06/20 12:25:00 EST, Solution, [facility]/pharmacy #[id number], 152, cm, 06/01/20 9:54:00 EDT, Height, 81, kg, 11/01/19 19:28:00 EDT, Dry Weight Start Date: 10/06/20 Status: Ordered albuterol CFC free 90 mcg/inh inhalation aerosol 2, puffs, Inhalation, Every 4 hours, PRN, # 18 Gm, Refills 11, Tot. Refills 11, Maintenance, 10/06/20 12:25:00 EST, Aerosol, Route to Pharmacy Electronically, [id number], [facility]/pharmacy #[id number], 152, cm, 06/01/20 9:54:00 EDT, Hei... Start Date: 10/06/20 Status: Ordered Alcohol Wipes See Instructions, # 100 each, Refills 5, Tot. Refills 5, Maintenance, DM 250.02. Use before BS control and lantus, 10/06/20 12:19:00 EST, Compound, 152, cm, 06/01/20 9:54:00 EDT, Height, 81, kg, 11/01/19 19:28:00 EDT, Dry Weight Start Date: 10/06/20 Status: Ordered aspirin 81 mg oral delayed release tablet 81 mg, 1, tablet, By Mouth, Daily, # 30 tablet, Refills 11, Tot. Refills 11, Maintenance, 10/06/20 12:25:00 EST, [id number], cm, 06/01/20 9:54:00 EDT, Height, 81, kg, 11/01/19 19:28:00 EDT, Dry Weight Start Date: 10/06/20 Status: Ordered atorvastatin 10 mg oral tablet 1 tablet = 10 mg, By Mouth, Daily, # 30 tablet, 5 Refills, Maintenance, 11/06/20 11:03:00 EDT, [facility]/pharmacy #[id number], Partial fill upon patient request if the prescription is for a schedule II opioid drug., 152, cm, 11/06/20 10:17:00 EDT, Height, 81, kg,... Start Date: 11/06/20 Stop Date: 05/05/21 Status: Ordered baclofen 5 mg oral tablet 1 tablet = 5 mg, By Mouth, 3 times a day, may cause drowsiness., # 42 tablet, 0 Refills, Maintenance, 12/14/20 11:40:00 EDT, Tablet, [facility]/pharmacy #[id number], Partial fill upon patient request if the prescription is for a schedule II opioid drug., 152, cm,... Start Date: 12/14/20 Stop Date: 12/28/20 Status: Ordered BD Ultra-Fine pen needles, BERTRAM 4 mm x 32 G BD Ultra-Fine pen needles, BERTRAM 4 mm x 32 G, See Instructions, # 150 each, Refills 11, Tot. [id number], Maintenance, Use for times a days with insulin. DM E119, 10/06/20 12:18:00 EST, Compound, 152, cm, 06/01/20 9:54:00 EDT, Height, 81, kg, 11/01/19 1... Start Date: 10/06/20 Status: Ordered BENGAY Arthritis topical cream See Instructions, rub into areas of pain and muscle tightness; instructions in Malay, # 1 each, 2Refills, Maintenance, 12/14/20 11:39:00 EDT, [facility]/pharmacy #[id number], Partial fill upon patient request if the prescription is for a schedule II opioid drug... Start Date: 12/14/20 Status: Ordered Blood Pressure Monitor See Instructions, # 1 each, Maintenance, check daily, 12/23/16 10:42:41, Compound Start Date: 12/23/16 Status: Ordered Colace sodium 100 mg oral capsule 100 mg, 1, capsule, By Mouth, 2 times a day, PRN, # 60 capsule, Refills 5, Tot. Refills 5, Maintenance, for constipation, 11/28/20 10:24:00 EDT, Route to Pharmacy Electronically, [facility]/pharmacy #[id number], 152, cm, 06/01/20 9:54:00 EDT, Height, 81, kg, 10/31... Start Date: 11/28/20 Stop Date: 05/27/21 Status: Ordered Compression Stockings See Instructions, # [...] Dry Weight Start Date: 07/28/20 Status: Ordered diclofenac 1.5% topical solution 40 drops, Topically, 4 times a day, to affected area, # 150 mL, 0 Refills, Acute 01/08/21 15:15:00 EDT, 12/22/20 13:57:00 EDT, Solution, [facility]/pharmacy #[id number], Partial fill upon patient request if the prescription is for a schedule II opioid drug., 40 . Start Date: 12/22/20 Stop Date: 01/08/21 Status: Ordered Escitalopram By Mouth, Daily, 0 Refills, Maintenance, 05/13/19 15:46:32 EDT Start Date: 05/13/19 Status: Ordered Eucerin Plus topical lotion 1 application, Topically, 2 times a day, PRN for dry skin, # 600 mL, 11 Refills, Maintenance, 10/06/20 12:22:00 EST, Lotion, [facility]/pharmacy #[id number], 1 application Topically 2 times a day,PRN:for dry skin, 152, cm, 06/01/20 9:54:00 EDT, Height, 81, kg, 03/... Start Date: 10/06/20 Status: Ordered Freestyle Lancets [...] 11 Refills, Maintenance, 10/06/20 12:21:00 EST, Solution, [facility]/pharmacy #[id number], Partial fill upon patient request if the prescription is for a schedule II opio... Start Date: 10/06/20 Status: Ordered HumaLOG KwikPen 100 units/mL injectable solution = 15 units, Subcutaneous Infusion, 3 times a day before meals, Dx E11.9. D/C admelog same dose 15 units . give kwik pen, # 15 mL, 11 Refills, Maintenance, 10/06/20 12:20:00 EST, [facility]/pharmacy #[id number], 152, cm, 06/01/20 9:54:00 [...] Solostar Pen 100 units/mL subcutaneous solution = 36 units, Subcutaneous Injection, Daily, for 30 days, DM E 11.9., # 12 mL, 11 Refills, Hard Stop 10/01/21 12:17:00 EST, 10/06/20 12:17:00 EST, Solution, [facility]/pharmacy #[id number], 152, cm, 06/01/20 9:54:00 EDT, Height, 81, kg, 11/01/19 19:28:00 EDT, Dry We... Start Date: 10/06/20 Stop Date: 10/01/21 Status: Ordered loratadine 10 mg oral tablet 10 mg, 1, tablet, By Mouth, Daily, # 30 tablet, Refills 5, Tot. Refills 5, Maintenance, 02/20/21 9:48:00 EDT, Route to Pharmacy Electronically, [facility]/pharmacy #[id number], 152, cm, 06/01/20 9:54:00 [...] cm, 06/01/20 9:54:00 EDT, Height, 81, kg, 03/0... Start Date: 08/24/20 Stop Date: 02/20/21 Status: Ordered meclizine 25 mg oral tablet See Instructions, TOME KRYSTEN TABLETA POR VIA ORAL GIBRAN VECES AL JULIAN CUANDO SEA NECESARIO DIZZINESS, #50 tablet, 1 Refills, Acute, [facility] [id number], 152, cm, 11/06/20 10:17:00 EDT, Height, 81, kg, 11/01/19 19:28:00 EDT, Dry Weight Start Date: 12/07/20 Status: Ordered metoprolol 25 mg oral tablet 25 mg, 1, tablet, By Mouth, 2 times a day, for 90 days, This is an increase in dose., # 180 tablet,Refills 3, Tot. Refills 3, Hard Stop 10/21/21 16:17:00 EST, 10/26/20 16:17:00 EST, Route to Pharmacy Electronically, [facility]/pharmacy #[id number], 152, cm, 06/01... Start Date: 10/26/20 Stop Date: 10/21/21 Status: Ordered riboflavin 100 mg oral tablet 1 tablet = 100 mg, By Mouth, 2 times a day, # 60 tablet, 4 Refills, Maintenance, 10/06/20 12:25:00 EST, [facility]/pharmacy #[id number], 152, cm, 06/01/20 9:54:00 EDT, Height, 81, kg, 11/01/19 19:28:00 EDT, Dry Weight Start Date: 10/06/20 Stop Date: 03/05/21 Status: Ordered sulindac 200 mg oral tablet 1 tablet = 200 mg, By Mouth, 2 times a day, # 60 tablet, 2 Refills, Maintenance, 12/14/20 11:44:00 EDT, Tablet, [facility]/pharmacy #[id number], Partial fill upon patient request if the prescription is for a schedule II opioid drug., 152, cm, 11/06/20 10:17:00 EDT... Start Date: 12/14/20 Status: Ordered Vitamin D3 1000 intl units oral tablet 1 tablet = 1,000 International_Units, By Mouth, Daily, # 30 tablet, 11 Refills, Maintenance, 10/06/20 12:25:00 EST, Tablet, [facility]/pharmacy #[id number], 152, cm, 06/01/20 9:54:00 [...]
--- OUTSIDE RECORDS SUMMARY | 2023-07-21 12:57 | XMS_ITS | Continuity of Care Document ---
Author Name Unknown Organization [facility] Address [address] [place] [address]- Care Team Providers Care Rice Drier Name Role Phone Renato MORRISON, Milton Loyola Primary Care Physicia n [place] [facility] [place](s): 01/29/23 - 02/05/23 [facility] [address] [place] [address]- Attending Physician: Akhil Eastman MD Admitting Physician: Akhil Eastman MD Referring Physician: Milton Gross NP Allergies, Adverse Reactions, Alerts Substance Reaction Severity Status traMADol tongue numbness--but she fell near loc Active Immunizations Given and Recorded Vaccine Date Status Refusal Reason [id number] bivalent booster vax 07/17/22 Given influenza virus vaccine, inactivated 07/17/22 Give n influenza virus vaccine, inactivated 06/01/20 Give n influenza virus vaccine, inactivated 05/13/17 Give n SARS-CoV-2 (COVID-19) mRNA BNT-162b2 vac 1 05/25/21 Given SARS-CoV-2 (COVID-19) mRNA BNT-162b2 vac 2 05/04/21 Given hepatitis B adult vaccine 01/18/16 Given pneumococcal 23-valent vaccine 01/18/16 Given tetanus/diphtheria/pertussis, acel(Tdap) 01/18/16 Given Not Given Vaccine Date Status Refusal Reason influenza virus vaccine, inactivated 11/12/14 Not Given Patient Refuses pneumococcal 23-valent vaccine 11/12/14 Not Given Patient Refuses 1Result Comment: NS DIL LOT [id number] EXP 11/2022 2Result Comment: DILUENT LOT#: [id number] EXP: 11/14 MFG: FRESENSIUS Medications albuterol 0.083% inhalation solution 3 mL = 2.5 mg, Inhalation, Every 6 hours, PRN for wheezing, # 25 each, 11 Refills, Maintenance, 01/17/23 13:45:00 EDT, Solution, [id number], 145, cm, 01/17/23 13:04:00 EDT, Height, 81, kg, 01/05/23 21:32:00 EDT, Dry Weight Start Date: 01/17/23 Status: Ordered Alcohol Wipes See Instructions, # 100 each, Refills 5, Tot. Refills 5, Maintenance, DM 250.02. Use before BS control and lantus, 05/24/22 14:27:00 EDT, Compound, 149.86, cm, 05/24/22 13:53:00 EDT, Height, 85.7, kg, 07/24/21 14:26:00 EST, Dry Weight Start Date: 05/24/22 Status: Ordered apixaban 5 mg oral tablet 1 tablet = 5 mg, By Mouth, Daily, by [employer] records. Follow speciality, # 30 tablet, 2 Refills, Maintenance, 03/06/23 16:52:00 EDT, Tablet, [id number], Partial fill upon patient request if theprescription is for a schedule II opioid drug., 145... Start Date: 03/06/23 Stop Date: 06/04/23 Status: Ordered apixaban 5 mg oral tablet 1 tablet = 5 mg, By Mouth, Daily, for 30 days, by [employer] records, # 30 tablet, 2 Refills, Hard Stop 03/06/23 16:52:00 EDT, 12/06/22 16:52:00 EDT, Tablet, [id number], Partial fill upon patient request if the prescription is for a schedule II opi... Start Date: 12/06/22 Stop Date: 03/06/23 Status: Ordered Aspirin Low Dose 81 mg oral delayed release tablet See Instructions, ASAD BURKETT TODOS [place]IRANDA by [employer] records continue, # 30 tablet, 11 Refills, 07/04/22 11:40:00 EST, [id number], 149.8, cm, 07/04/22 11:20:00 EST, Height, 83.3, kg, 06/14/22 18:50:00 EDT, Dry Weight Start Date: 07/04/22 Status: Ordered atorvastatin 10 mg oral tablet See Instructions, ASAD MOSSS LOS MIRANDA, # 30 tablet, 11 Refills, 05/24/22 14:42:00 EDT, [id number], 149.86, cm, 05/24/22 13:53:00 EDT, Height, 85.7, kg, 07/24/21 14:26:00 EST, Dry Weight Start Date: 05/24/22 Status: Ordered BD Ultra-Fine pen needles, BERTRAM 4 mm x 32 G BD Ultra-Fine pen needles, BERTRAM 4 mm x 32 G, See Instructions, # 150 each, Refills 11, Tot. [id number], Maintenance, Use for times a days with insulin. DM E119, 05/31/22 13:26:00 EDT, Compound, 149.86, cm, 05/27/22 9:58:00 EDT, Height, 85.7, kg, 07/24... Start Date: 05/31/22 Status: Ordered Compression Stockings See Instructions, # 2 each, Refills 2, Tot. Refills 2, Maintenance, surgical, knee length 20-30 mm Hg Dx: I83.899, 07/19/20 11:47:00 EST, Supply Start Date: 07/19/20 Status: Ordered covid home test covid home test, See Instructions, # 1 each, Refills 0, Tot. Refills 0, Maintenance, use as need it, 05/24/22 14:30:00 EDT, Supply, 149.86, cm, 05/24/22 13:53:00 EDT, Height, 85.7, kg, 07/24/21 14:26:00 EST, Dry Weight Start Date: 05/24/22 Status: Ordered CPAP Machine See Instructions, # 1 each, Refills 0, Tot. Refills 0, Maintenance, AutoCPAP 11- 20, 07/25/21 12:56:00 EST, Compound Start Date: 07/25/21 Status: Ordered ergocalciferol 46505 iu oral capsule 1, capsule, By Mouth, Every week, # 4 capsule, Refills 4, Maintenance, 10/22/22 15:42:00 EST, Routeto Pharmacy Electronically, [id number], 149.8, cm, 07/22/22 9:38:00 EST, Height, 83.3, kg, 06/14/22 18:50:00 EDT, Dry Weight Start Date: 10/22/22 Status: Ordered Escitalopram = 20 mg, By Mouth, Daily, 0 Refills, Maintenance, 05/13/19 15:46:32 EDT Start Date: 05/13/19 Status: Ordered Eucerin Plus topical lotion 1 application, Topically, 2 times a day, PRN for dry skin, # 600 mL, 11 Refills, Maintenance, 01/17/23 13:42:00 EDT, Lotion, [facility] #[id number], Partial fill upon patient request if the prescription is for a schedule II opioid drug., 1 application Top... Start Date: 01/17/23 Stop Date: 01/12/24 Status: Ordered Eucerin Plus topical lotion 1 application, Topically, 2 times a day, PRN for dry skin, # 600 mL, 1 Refills, Maintenance, 05/24/22 14:28:00 EDT, Lotion, [facility] #[id number], Partial fill upon patient request if the prescription is for a schedule II opioid drug., 1 application Topi... Start Date: 05/24/22 Status: Ordered Freestyle Lancets See Instructions, # 100 each, Refills 11, Tot. Refills 11, Maintenance, E11.65 tests tid ; on insulin, 05/24/22 14:27:00 EDT, Compound, 149.86, cm, 05/24/22 13:53:00 EDT, Height, 85.7, kg, 07/24/21 14:26:00 EST, Dry Weight Start Date: 05/24/22 Status: Ordered Freestyle Lite Test Strips See Instructions, # 100 each, Refills 11, Tot. Refills 11, Maintenance, E11.65 on insulin To Test TID, 05/24/22 14:27:00 EDT, Compound, 149.86, cm, 05/24/22 13:53:00 EDT, Height, 85.7, kg, 07/24/21 14:26:00 EST, Dry Weight Start Date: 05/24/22 Status: Ordered Imitrex 50 mg oral tablet See Instructions, 1 tablet By Mouth at onset of headache. May repeat once in 2 hours. Not > 4/ week., # 9 tablet, 0 Refills, Maintenance, 01/03/20 13:01:00 EDT, [facility] #[id number], 152, cm, 11/01/19 19:28:00 EDT, Height, 81, kg, 11/01/19 19:28:00 EDT,... Start Date: 01/03/20 Status: Ordered Insulin Lispro Scot KwikPen 100 units/mL injectable solution = 15 units, Subcutaneous Infusion, 3 times a day before meals, for 30 days, with breakfast and lunch rotate injection sites. stop novolog due insurance issues. in [place], # 15 mL, 11 Refills, Hard Stop 08/07/23 12:49:00 EST, 08/12/22 12:49:00 EST,... Start Date: 08/12/22 Stop Date: 08/07/23 Status: Ordered Insulin Lispro Scot KwikPen 100 units/mL injectable solution = 15 units, Subcutaneous Infusion, 3 times a day before meals, with breakfast and lunch rotate injection sites. stop novolog due insurance issues. in [place], # 15 mL, 11 Refills, Maintenance, 08/07/23 12:49:00 EST, [facility]pharmacy #[id number], Partial fill... Start Date: 08/07/23 Stop Date: 08/01/24 Status: Ordered Insulin Syringe, BD Ultra-Fine 0.3 cc 31 G x 8 mm (5/16in) See Instructions, # 100 each, Refills 5, Tot. Refills 5, Maintenance, use as directed for Type 1 Diabetes Mellitus. DM 250.02. can give small needle if insurance covers., 05/24/22 14:27:00 EDT, Compound, 149.86, cm, 05/24/22 13:53:00 EDT, Height, 85.7... Start Date: 05/24/22 Stop Date: 11/20/22 Status: Ordered Lantus Solostar Pen 100 units/mL subcutaneous solution = 40 units, Subcutaneous Injection, Daily, for 30 days, DM E 11.9., # 12 mL, 11 Refills, Hard Stop 09/10/25 12:17:00 EST, 09/15/24 12:17:00 EST, Solution, [facility]/pharmacy #[id number], 149.8, cm, 07/22/22 9:38:00 EST, Height, 83.3, kg, 06/14/22 18:50:00 EDT, . Start Date: 09/15/24 Stop Date: 09/10/25 Status: Ordered loratadine 10 mg oral tablet See Instructions, ASAD SHAWA TODOS [place], # 30 tablet, Refills 5, Tot. Refills 5, 05/24/2214:42:00 EDT, Instructions Replace Required Details, [id number] 149.86, cm, 05/24/22 13:53:00 EDT, Height, 8... Start Date: 05/24/22 Status: Ordered meclizine 25 mg oral tablet 1 tablet = 25 mg, By Mouth, 3 times a day, PRN for dizziness, # 30 tablet, 0 Refills, Maintenance, 05/31/22 13:26:00 EDT, Tablet, [facility]/pharmacy #[id number], Partial fill upon patient request if the prescription is for a schedule II opioid drug., 149.86, cm,... Start Date: 05/31/22 Status: Ordered metoprolol 25 mg oral tablet 25 mg, 1, tablet, By Mouth, 2 times a day, for 90 days, This is an increase in dose., # 180 tablet,Refills 3, Tot. Refills 3, Hard Stop 05/26/23 13:26:00 EDT, 05/31/22 13:26:00 EDT, [id number] 149.86, cm, 10... Start Date: 05/31/22 Stop Date: 05/26/23 Status: Ordered Nebulizer/Compressor See Instructions, # 1 each, Maintenance, Dx ashtma. Use with albuterol solution, 01/17/23 13:45:00 EDT, Supply Start Date: 01/17/23 Status: Ordered oxymeter oxymeter, See Instructions, # 1 each, Refills 0, Tot. Refills 0, Maintenance, check when sob, 07/04/22 11:56:00 EST, Supply, 149.8, cm, 07/04/22 11:20:00 EST, Height, 83.3, kg, 06/14/22 18:50:00 EDT,Dry Weight Start Date: 07/04/22 Status: Ordered ProAir HFA 90 mcg/inh inhalation aerosol with adapter See Instructions, INHALE 2 PUFFS CADA CUATRO HORAS CUANDO SEA NECESARIO FOR WHEEZING, # 8.5 each, Refills 5, Tot. Refills 5, 01/17/23 13:44:00 EDT, Instructions Replace Required Details, Route to Pharmacy Electronically, [id number]... Start Date: 01/17/23 Status: Ordered Pulse Oximeter Pulse Oximeter, See Instructions, # 1 each, Refills 0, Tot. Refills 0, Maintenance, For COVID Diagnosis (U07.1), 07/17/22 12:09:00 EST, Supply, 149.8, cm, 07/17/22 10:22:00 EST, Height, 83.3, kg, 06/14/22 18:50:00 EDT, Dry Weight Start Date: 07/17/22 Status: Ordered Vitamin B2 100 mg oral tablet See Instructions, ASAD BASHIR TABLETA DOS VECES AL JULIAN, # 60 tablet, 4 Refills, Maintenance, [id number], 152, cm, 11/06/20 10:17:00 EDT, Height, 81, kg, 11/01/19 19:28:00 EDT, Dry Weight Start Date: 03/07/21 Status: Ordered Zithromax 250 mg oral tablet 1 pack/packet, By Mouth, Once, # 6 tablet, 0 Refills, Soft Stop, 01/05/23 23:08:00 EDT, Tablet, [facility]/pharmacy #[id number], Partial fill upon patient request if the prescription is for a schedule II opioid drug., 145, cm, 01/05/23 21:32:00 EDT, Height, 81, kg... Start Date: 01/05/23 Status: Ordered Problem List Condition Confirmation Course Effective Dates Status Health St at[facility] Informant Annual physical exam Confirmed Active Asthma Confirmed Active Depression Confirmed Active Diabetes mellitus Confirmed Active Hypertension Confirmed Active Lactic acidosis Confirmed Active Meningioma Confirmed Active Myalgia Confirmed Active Obstructive sleep apnea Confirmed Active Severe obesity (BMI 35.0-39.9) with comorbidity Confirmed Active Vital Signs Most recent to oldest [Reference Range]: 1 Height 145 cm (01/29/23 8:36 AM) Weight 81.65 kg (01/29/23 8:36 AM) Oxygen Saturation [94-100 %] 97 % (01/29/23 8:36 AM) Pulse Rate [55-90 bpm] 77 bpm (01/29/23 8:36 AM) Body Mass Index [18.5-24.99 kg/m2] 38.83 kg/m2 *>HHI* (01/29/23 8:36 AM) Blood Pressure [90-138/55-84 mm Hg] 106/ 60mm Hg (01/29/23 8:36 AM) Mode of Delivery (Oxygen) Room air (01/29/23 8:36 AM) Blood pressure sites Arm, left (01/29/23 8:36 AM) Weight Obtained Via Patient/family state d (01/29/23 8:36 AM) Social History Social History Type Response Smoking Status Never (less than 100 in lifetime) entered on: 01/29/23 Sex Note * Samreen Rod: VERIFY, PERFORM, SIGN Event Display: Patient Education/Instruction Authored Date: [id number] [facility] [address] Clinical Summary Name ZAID DELEON Age 52 Years 1970 PCP Renato MORRISON, Milton Loyola PCP Visit Date 01/29/2023 08:07:00 Additional Instructions: Scheduled Appointments?? Future Appointments ?*[facility] ?[address] ?[place],??[place],??[address] ?Phone:??--?Fax:??-- ?Appt. Date:??03/06/2023?3:00 PM ?Scheduled Provider:??Dionisio MORRISON, Bouchra Ram Follow-Up Instructions ?? Diagnosis Medications: Please continue your medications until treatment is completed or stopped by your provider. Discuss any questions related to medications with your provider. Medications to Continue with No Changes These medications were not printed or sent to your pharmacy Albuterol (albuterol 0.083% inhalation solution) 3 Milliliter Inhalation every 6 hours as needed for wheezing. Refills: 11. Next Dose: Albuterol (ProAir HFA 90 mcg/inh inhalation aerosol with adapter) INHALE 2 PUFFS CADA CUATRO HORAS CUANDO SEA NECESARIO FOR WHEEZING. Refills: 5. Next Dose: apixaban (apixaban 5 mg oral tablet) 1 tab(s) Oral Daily for 30 Days. by [facility]. Refills: 2. Next Dose: apixaban (apixaban 5 mg oral tablet) 1 tab(s) Oral Daily for 30 Days. by [employer] records. Follow speciality. Refills: 2. Next Dose: Aspirin (Aspirin Low Dose 81 mg oral delayed release tablet) TOME KRYSTEN TABLETA TODOS [place] MIRANDA by [employer] records continue. Refills: 11. Next Dose: Atorvastatin (atorvastatin 10 mg oral tablet) TOME KRYSTEN TABLETA TODOS [place] MIRANDA. Refills: 11. Next Dose: Azithromycin (Zithromax 250 mg oral tablet) 1 pack/packet Oral once. Refills: 0. Next Dose: Durable Medical Equipment (Alcohol Wipes) DM 250.02. Use before BS control and lantus. Refills: 5. Next Dose: Durable Medical Equipment (Compression Stockings) surgical, knee length 20-30 mm Hg Dx: I83.899. Refills: 2. Next Dose: Durable Medical Equipment (covid home test) use as need it. Refills: 0. Next Dose: Durable Medical Equipment (CPAP Machine) AutoCPAP 11- 20. Refills: 0. Next Dose: Durable Medical Equipment (Freestyle Lancets) E11.65 tests tid ; on insulin. Refills: 11. Next Dose: Durable Medical Equipment (Freestyle Lite Test Strips) E11.65 on insulin To Test TID. Refills: 11. Next Dose: Durable Medical Equipment (Insulin Syringe, BD Ultra-Fine 0.3 cc 31 G x 8 mm (5/16in)) use as directed for Type 1 Diabetes Mellitus. DM 250.02. can give small needle if insurance covers.. Refills: 5. Next Dose: Durable Medical Equipment (Nebulizer/Compressor) Dx ashtma. Use with albuterol solution. Refills: 0. Next Dose: Durable Medical Equipment (oxymeter) check when sob. Refills: 0. Next Dose: Durable Medical Equipment (Pulse Oximeter) For COVID Diagnosis (U07.1). Refills: 0. Next Dose: Emollients, Topical (Eucerin Plus topical lotion) 1 seema Topically twice a day as needed for dry skin. Refills: 1. Next Dose: Emollients, Topical (Eucerin Plus topical lotion) 1 seema Topically twice a day as needed for dry skin for 30 Days. Refills: 11. Next Dose: Ergocalciferol (ergocalciferol 42576 iu oral capsule) 1 capsule Oral every week. Refills: 4. Next Dose: Escitalopram 20 Milligram Oral Daily. Next Dose: Insulin Glargine (Lantus Solostar Pen 100 units/mL subcutaneous solution) 40 unit(s) Subcutaneous Injection Daily for 30 Days. DM E 11.9.. Refills: 11. Next Dose: Insulin Lispro (Insulin Lispro Soct KwikPen 100 units/mL injectable solution) 15 unit(s) Subcutaneous Infusion 3 times a day before meals for 30 Days. with breakfast and lunch rotate injection sites. stop novolog due insurance issues. in [place]. Refills: 11. Next Dose: Insulin Lispro (Insulin Lispro Scot KwikPen 100 units/mL injectable solution) 15 unit(s) Subcutaneous Infusion 3 times a day before meals for 30 Days. with breakfast and lunch rotate injection sites. stop novolog due insurance issues. in [place]wand[place]. Refills: 11. Next Dose: Loratadine (loratadine 10 mg oral tablet) TOME KRYSTEN SHAWA TODOS [place] MIRANDA. Refills: 5. Next Dose: Meclizine (meclizine 25 mg oral tablet) 1 tab(s) Oral 3 times a day as needed for dizziness. Refills: 0. Next Dose: Metoprolol (metoprolol 25 mg oral tablet) 1 tab(s) Oral twice a day for 90 Days. This is an increase in dose.. Refills: 3. Next Dose: Miscellaneous Rx (BD Ultra-Fine pen needles, BERTRAM 4 mm x 32 G) Use for times a days with insulin. DM E119. Refills: 11. Next Dose: Riboflavin (Vitamin B2 100 mg oral tablet) TOME KRYSTEN TABLETA DOS VECES AL JULIAN. Refills: 4. Next Dose: Sumatriptan (Imitrex 50 mg oral tablet) 1 tablet By Mouth at onset of headache. May repeat once in 2 hours. Not > 4/ week.. Refills: 0. Next Dose: Allergy Info:?? traMADol Medications Given This Visit Future Orders ?No future orders Vital Signs Height 145 cm Weight 81.65 kg BMI 38.83 kg/m2 Blood Pressure 106 mm Hg/60 mm Hg Temperature Pulse Rate 77 bpm Respiratory Rate 02 Sat Mode of Delivery 97 %/Room air You can now view a summary of your hospital visit from the comfort of your home through a free online portal called Deed. Deed is a website that allows you to securely view your medical information including discharge summary, medications and follow-up visits. ??You can alsosend a secure electronic message to your doctor???s office to request appointments, renew medications or just ask a question. You can enroll at [email or web address] or register during your next office visit. Disclaimer:?? The information provided is of a general nature and is intended to be used in conjunction with the recommendations and advice of your health care practitioner. ??Every effort has been made to ensure that the information provided is accurate and complete at the time it is provided to you however, as your needs change, or, as new ??information becomes available, different or additional instructions may be required. If you have questions, please consult with your primary care provider or pharmacist, as appropriate. ??This information is not intended to serve as substitution for assessment and evaluation by a qualified health care provider. If you do not have a primary care provider, you may find a [facility] provider by calling [facility] [employer] at [phone]. For information about the plan of care including goals and instructions for your diagnosis, please see the patient education orders section of this document. Patient Education Materials?? The content of this educational material or handout may have been modified, supplemented, or adapted from its original content and format to support your individualized medical care. Patient Care team information Care Team Personnel Name: Jesika Hua RN Position: [facility] RN Member Role: Primary Care Nurse Name: Milton Gross NP Position: [facility] PCO Associate Professional Member Role: PCP Address: Address: [address] [place] [address]- Care Team Related Persons Name: YASMIN FISHER Address: home [address] [address]
--- OUTSIDE RECORDS SUMMARY | 2023-07-21 12:57 | XMS_ITS | Continuity of Care Document ---
Author Name Unknown Organization [facility] Address [address] [place] [address]- Care Team Providers Care Professor Of Theatre Name Role Phone Milton Gross NP Primary Care Physicia n Encounter [facility] Date(s): 05/24/21 - 06/24/[address] [address]- Attending Physician: Not on Staff, Attending MD Allergies, Adverse Reactions, Alerts Substance Reaction Severity Status traMADol tongue numbness--but she fell near loc Active Immunizations Given and Recorded Vaccine Date Status Refusal Reason SARS-CoV-2 (COVID-19) mRNA BNT-162b2 vac 1 05/25/21 Given SARS-CoV-2 (COVID-19) mRNA BNT-162b2 vac 2 05/04/21 Given influenza virus vaccine, inactivated 06/01/20 Give n influenza virus vaccine, inactivated 05/13/17 Give n hepatitis B adult vaccine 01/18/16 Given pneumococcal 23-valent vaccine 01/18/16 Given tetanus/diphtheria/pertussis, acel(Tdap) 01/18/16 Given Not Given Vaccine Date Status Refusal Reason influenza virus vaccine, inactivated 11/12/14 Not Given Patient Refuses pneumococcal 23-valent vaccine 11/12/14 Not Given Patient Refuses 1Result Comment: NS DIL LOT [id number] EXP 11/2022 2Result Comment: DILUENT LOT#: [id number] EXP: 11/14 MFG: FRESENSIUS Medications albuterol 0.083% inhalation solution 3 mL = 2.5 mg, Inhalation, Every 6 hours, PRN for wheezing, # 25 each, 11 Refills, Maintenance, 10/06/20 12:25:00 EST, Solution, [id number], 152, cm, 06/01/20 9:54:00 EDT, Height, 81, kg, 11/01/19 19:28:00 EDT, Dry Weight Start Date: 10/06/20 Status: Ordered albuterol CFC free 90 mcg/inh inhalation aerosol 2, puffs, Inhalation, Every 4 hours, PRN, # 18 Gm, Refills 11, Tot. Refills 11, Maintenance, 10/06/20 12:25:00 EST, Aerosol, Route to Pharmacy Electronically, [id number], [facility]/pharmacy #[id number], 152, cm, 06/01/20 9:54:00 EDT, [...] 10/06/20 12:25:00 EST, [id number], 152, cm, 06/01/20 9:54:00 EDT, Height, 81, kg, 11/01/19 19:28:00 EDT, Dry Weight Start Date: 10/06/20 Status: Ordered atorvastatin 10 mg oral tablet 1 tablet = 10 mg, By Mouth, Daily, # 30 tablet, 5 Refills, Maintenance, 05/05/21 11:03:00 EDT, [facility]/pharmacy #[id number], Partial fill upon patient request if the prescription is for a schedule II opioid drug., 152, cm, 04/18/21 13:24:00 EDT, Height, 85.2, k... Start Date: 05/05/21 Stop Date: 11/01/21 Status: Ordered baclofen 5 mg oral tablet 1 tablet = 5 mg, By Mouth, 3 times a day, may cause drowsiness., # 42 tablet, 0 Refills, Maintenance, 12/14/20 11:40:00 EDT, Tablet, [facility]/pharmacy #[id number], Partial fill upon patient request if the prescription is for a schedule II opioid drug., 152, cm,... Start Date: 12/14/20 Stop Date: 12/28/20 Status: Ordered BD Ultra-Fine pen needles, BERTRAM 4 mm x 32 G BD Ultra-Fine pen needles, BERTRAM 4 mm x 32 G, See Instructions, # 150 each, Refills 11, Tot. [id number], Maintenance, Use for times a days with insulin. DM E119, 10/06/20 12:18:00 EST, Compound, 152, cm, 06/01/20 9:54:00 EDT, Height, 81, kg, 11/01/19 1... Start Date: 10/06/20 Status: Ordered BENGAY Arthritis topical cream See Instructions, rub into areas of pain and muscle tightness; instructions in Tajik, # 1 each, 2Refills, Maintenance, 12/14/20 11:39:00 EDT, [facility]/pharmacy #[id number], Partial fill upon patient request [...] 11/28/20 10:24:00 EDT, Route to Pharmacy Electronically, [facility]/pharmacy #[id number], 152, cm, 06/01/20 9:54:00 EDT, Height, 81, kg, 10/31... Start Date: 11/28/20 Stop Date: 05/27/21 Status: Ordered Compression Stockings See Instructions, # 2 each, Refills 2, Tot. Refills 2, Maintenance, surgical, knee length 20-30 mm Hg Dx: I83.899, 07/19/20 11:47:00 EST, Supply Start Date: 07/19/20 Status: Ordered Compression Stockings surgical, knee high length 20-30 mm Hg, # 2 each, Refills 2, Tot. Refills 2, Maintenance, wear daily remove bedtime, 05/30/21 10:59:00 EDT, Supply Start Date: 05/30/21 Status: Ordered CPAP Machine See Instructions, # 1 each, Refills 0, Tot. Refills 0, Maintenance, AutoCPAP 11- 20, 04/18/21 14:37:00 EDT, Compound Start Date: 04/18/21 Status: Ordered ergocalciferol 48539 iu oral capsule 50,000 International_Units, 1, capsule, By Mouth, Every week, # 18 capsule, Refills 0, Tot. Refills0, Maintenance, 06/01/21 13:45:00 EDT, Route to Pharmacy Electronically, [facility]/pharmacy #[id number], Partial fill upon patient request if the prescription is f... Start Date: 06/01/21 Stop Date: 09/29/21 Status: Ordered Escitalopram By Mouth, Daily, 0 Refills, Maintenance, 05/13/19 15:46:32 EDT Start Date: 05/13/19 Status: Ordered Eucerin Plus topical lotion 1 application, Topically, 2 times a day, PRN for dry skin, # 600 mL, 11 Refills, Maintenance, 10/06/20 12:22:00 EST, Lotion, [facility]/pharmacy #[id number], 1 application Topically 2 times a day,PRN:for dry skin, 152, cm, 06/01/20 9:54:00 EDT, Height, 81, kg, 03/... Start Date: 10/06/20 Status: Ordered Eucerin Plus topical lotion 1 application, Topically, 2 times a day, PRN for dry skin, # 600 mL, 1 Refills, Maintenance, 06/01/21 13:51:00 EDT, Lotion, [facility]/pharmacy #[id number], Partial fill upon patient request if the prescription is for a schedule II opioid drug., 1 application Topi... Start Date: 06/01/21 Status: Ordered Freestyle Lancets See Instructions, # [...] Dry Weight Start Date: 10/06/20 Status: Ordered gabapentin 100 mg oral capsule 100 mg, 1, capsule, By Mouth, 3 times a day, # 90 capsule, Refills 1, Tot. Refills 1, Maintenance, 06/01/21 13:48:00 EDT, Route to Pharmacy Electronically, [facility]/pharmacy #[id number], Partial fill upon patient request if the prescription is for a schedule II... Start Date: 06/01/21 Stop Date: 07/31/21 Status: Ordered Humalog 100 u/ml subcutaneous injection = 15 units, Subcutaneous Injection, 3 times a day before meals, discontinue admelog, # 15 mL, 11 Refills, Maintenance, 05/04/21 14:14:00 EDT, Solution, [facility]/pharmacy #[id number], Partial fill upon patient request if the prescription is for a schedule II opio... Start Date: 05/04/21 Status: Ordered HumaLOG KwikPen 100 units/mL injectable solution = 15 units, Subcutaneous Infusion, 3 times a day before meals, Dx E11.9. D/C admelog same dose 15 units . give kwik pen, # 15 mL, 11 Refills, Maintenance, 10/06/20 12:20:00 EST, [facility]/pharmacy #[id number], 152, cm, 06/01/20 9:54:00 EDT, Height, 81, kg, ... Start Date: 10/06/20 Stop Date: 10/01/21 Status: Ordered Imitrex 50 mg oral tablet See Instructions, 1 tablet By Mouth at onset of headache. May repeat once in 2 hours. Not > 4/ week., # 9 tablet, 0 Refills, Maintenance, 01/03/20 13:01:00 EDT, [facility]/pharmacy #[id number], 152, cm, 11/01/19 19:28:00 EDT, Height, [...] # 12 mL, 11 Refills, Hard Stop 09/26/22 12:17:00 EST, 10/01/21 12:17:00 EST, Solution, [facility]/pharmacy #[id number], 152, cm, 05/04/21 13:50:00 EDT, Height, 85.2, kg, 04/18/21 13:24:00 EDT, Dry... Start Date: 10/01/21 Stop Date: 09/26/22 Status: Ordered loratadine 10 mg oral tablet See Instructions, ASAD MIRANDA, # 30 tablet, Refills 5, Maintenance, Instructions Replace Required Details, Route to Pharmacy Electronically, [id number], 152, cm, 11/06/20 10:17:00 EDT, Height, 81, kg, 11/01/19 19:28:00 EDT, DrBonilla.. Start Date: 04/03/21 Status: Ordered meclizine 25 mg oral tablet See Instructions, TOME KRYSTEN TABLETA POR VIA ORAL GIBRAN VECES AL JULIAN CUANDO SEA NECESARIO DIZZINESS, #50 tablet, 1 Refills, Acute, [id number], 152, cm, 11/06/20 10:17:00 EDT, Height, 81, kg, 11/01/19 19:28:00 EDT, Dry Weight Start Date: 12/07/20 Status: Ordered meclizine 25 mg oral tablet 1 tablet = 25 mg, By Mouth, 3 times a day, PRN for dizziness, # 30 tablet, 0 Refills, Maintenance, 04/08/21 22:48:00 EDT, Tablet, [facility]/pharmacy #[id number], Partial fill upon patient request if the prescription is for a schedule II opioid drug., 152, cm, ... Start Date: 04/08/21 Status: Ordered metoprolol 25 mg oral tablet 25 mg, 1, tablet, By Mouth, 2 times a day, for 90 days, This is an increase in dose., # 180 tablet,Refills 3, Tot. Refills 3, Hard Stop 10/21/21 16:17:00 EST, 10/26/20 16:17:00 EST, Route to Pharmacy Electronically, [facility]/pharmacy #[id number], 152, cm, 06/01... Start Date: 10/26/20 Stop Date: 10/21/21 Status: Ordered Bungolow COVID-19 Vaccine 30 mcg/0.3 mL preservative-free intramuscular suspension 0.3 mL = 30 mcg, Intramuscular, Once, use our staff, # 0.3 mL, 0 Refills, Soft Stop, 05/04/21 14:12:00 EDT, Suspension, Partial fill upon patient request if the prescription is for a schedule II opioid drug. Start Date: 05/04/21 Status: Ordered Shower Bench See Instructions, # 1 each, Maintenance, Dx diabetes neuropathy, 06/01/21 13:55:00 EDT, Supply Start Date: 06/01/21 Status: Ordered shower chair shower chair, See Instructions, # 1 each, Refills 0, Tot. Refills 0, Maintenance, DX diabetes neuropathy, 06/01/21 13:49:00 EDT, Supply Start Date: 06/01/21 Status: Ordered sulindac 200 mg oral tablet 1 tablet = 200 mg, By Mouth, 2 times a day, # 60 tablet, 2 Refills, Maintenance, 12/14/20 11:44:00 EDT, Tablet, [facility]/pharmacy #[id number], Partial fill upon patient request if the prescription is for a schedule II opioid drug., 152, cm, 11/06/20 10:17:00 EDT... Start Date: 12/14/20 Status: Ordered Vitamin B2 100 mg oral tablet See Instructions, ASAD SHAWA LEZAMA AL JULIAN, # 60 tablet, 4 Refills, Maintenance, [facility] [id number], 152, cm, 11/06/20 10:17:00 EDT, Height, 81, kg, 11/01/19 19:28:00 EDT, Dry Weight Start Date: 03/07/21 Status: Ordered Problem List Condition Effective Dates Status Health Status Inform ant Annual physical exam(Confirmed) Active Asthma(Confirmed) Active Depression(Confirmed) Active Diabetes mellitus(Confirmed) Active Hypertension(Confirmed) Active Lactic acidosis(Confirmed) Active Meningioma(Confirmed) Active Obstructive sleep apnea(Confirmed) Active Social History Social History Type Response Smoking Status Never smoker; Tobacc o user in household: No; Type: Cigarettes entered on: 11/07/14 Sex
--- OUTSIDE RECORDS SUMMARY | 2023-07-21 12:58 | XMS_ITS | Continuity of Care Document ---
Author Name Unknown Organization [facility] Address [address] [place] [address]- Care Team Providers Care Custom Clothier Name Role Phone Renato MORRISON, Milton Loyola Primary Care Physicia n Encounter [facility] Date(s): 12/02/22 - 01/05/[address] [address]- Attending Physician: Hemant Delgado MD Admitting Physician: Hemant Delgado MD Allergies, Adverse Reactions, Alerts Substance Reaction Severity Status traMADol tongue numbness--but she fell near loc Active Immunizations Given and Recorded Vaccine Date Status Refusal Reason [id number] bivalent booster vax 07/17/22 Given influenza virus [...] Patient Refuses 1Result Comment: NS DIL LOT [id number] EXP 11/2022 2Result Comment: DILUENT LOT#: [id number] EXP: 11/14 MFG: FRESENSIUS Medications albuterol 0.083% inhalation solution 3 mL = 2.5 mg, Inhalation, Every 6 hours, PRN for wheezing, # 25 each, 11 Refills, Maintenance, 05/24/22 14:28:00 EDT, Solution, [id number], 149.86, cm, 05/24/22 13:53:00 EDT, Height, 85.7, kg, 07/24/21 14:26:00 EST, Dry Weight Start Date: 05/24/22 Status: Ordered Alcohol Wipes See Instructions, # 100 each, Refills 5, Tot. Refills 5, Maintenance, DM 250.02. Use before BS control and lantus, 05/24/22 14:27:00 EDT, Compound, 149.86, cm, 05/24/22 13:53:00 EDT, Height, 85.7, kg, 07/24/21 14:26:00 EST, Dry Weight Start Date: 05/24/22 Status: Ordered apixaban 5 mg oral tablet 1 tablet = 5 mg, By Mouth, Daily, by [place] records, # 30 tablet, 2 Refills, Maintenance, 12/06/22 16:52:00 EDT, Tablet, [facility]/pharmacy #[id number], Partial fill upon patient request if the prescription is for a schedule II opioid drug., 149.8, cm, 07/22/22 9:... Start Date: 12/06/22 Stop Date: 03/06/23 Status: Ordered Aspirin Low Dose 81 mg oral delayed release tablet See Instructions, ASAD BASHIR TABLETA MARIANNE RODRÍGUEZ MIRANDA [facility] continue, # 30 tablet, 11 Refills, 07/04/22 11:40:00 EST, [id number], 149.8, cm, 07/04/22 11:20:00 EST, Height, 83.3, kg, 06/14/22 18:50:00 EDT, Dry Weight Start Date: 07/04/22 Status: Ordered atorvastatin 10 mg oral tablet See Instructions, PJE KRYSTEN TABLETA TOLOMAS MIRANDA, # 30 tablet, 11 Refills, 05/24/22 14:42:00 EDT, [id number], 149.86, cm, 05/24/22 13:53:00 EDT, Height, 85.7, kg, 07/24/21 14:26:00 EST, Dry Weight Start Date: 05/24/22 Status: Ordered BD Ultra-Fine pen needles, BERTRAM 4 mm x 32 G BD Ultra-Fine pen needles, BERTRAM 4 mm x 32 G, See Instructions, # 150 each, Refills 11, Tot. [id number], Maintenance, Use for times a days with [...] Compound Start Date: 07/25/21 Status: Ordered ergocalciferol 17349 iu oral capsule 1, capsule, By Mouth, Every week, # 4 capsule, Refills 4, Maintenance, 10/22/22 15:42:00 EST, [id number], 149.8, cm, 07/22/22 9:38:00 EST, Height, 83.3, kg, 06/14/22 18:50:00 EDT, Dry Weight Start Date: 10/22/22 Status: Ordered Escitalopram = 20 mg, By Mouth, Daily, 0 Refills, Maintenance, 05/13/19 15:46:32 EDT Start Date: 05/13/19 Status: Ordered Eucerin Plus topical lotion 1 application, Topically, 2 times a day, PRN for dry skin, # 600 mL, 1 Refills, Maintenance, 05/24/22 14:28:00 EDT, Lotion, [facility]/pharmacy #[id number], Partial fill upon patient request [...] tablet, 0 Refills, Maintenance, 01/03/20 13:01:00 EDT, [facility]/pharmacy #[id number], 152, cm, 11/01/19 19:28:00 EDT, Height, 81, kg, 11/01/19 19:28:00 EDT,... Start Date: 01/03/20 Status: Ordered Insulin Lispro Scot KwikPen 100 units/mL injectable solution = 15 units, Subcutaneous Infusion, 3 times a day before meals, for 30 days, with breakfast and lunch rotate injection sites. stop novolog due insurance issues. in honduran, # 15 mL, 11 Refills, Hard Stop 08/07/23 12:49:00 EST, 08/12/22 12:49:00 EST,... Start Date: 08/12/22 Stop Date: 08/07/23 Status: Ordered Insulin Lispro Scot KwikPen 100 units/mL injectable solution = 15 units, Subcutaneous Infusion, 3 times a day before meals, with breakfast and lunch rotate injection sites. stop novolog due insurance issues. in honduran, # 15 mL, 11 Refills, Maintenance, 08/07/23 12:49:00 EST, [facility]/pharmacy #[id number], Partial fill... Start Date: 08/07/23 Stop [...] 09/10/25 12:17:00 EST, 09/15/24 12:17:00 EST, Solution, [facility]/pharmacy #[id number], 149.8, cm, 07/22/22 9:38:00 EST, Height, 83.3, kg, 06/14/22 18:50:00 EDT, Start Date: 09/15/24 Stop Date: 09/10/25 Status: Ordered loratadine 10 mg oral tablet See Instructions, ASAD SHAWA TODOS LOS MIRANDA, # 30 tablet, Refills 5, Tot. Refills 5, 05/24/2214:42:00 EDT, Instructions Replace Required Details, Route to Pharmacy Electronically, [facility]/pharmacy#[id number], 149.86, cm, 05/24/22 13:53:00 EDT, Height, 8... Start Date: 05/24/22 Status: Ordered meclizine 25 mg oral tablet 1 tablet = 25 mg, By Mouth, 3 times a day, PRN for dizziness, # 30 tablet, 0 Refills, Maintenance, 05/31/22 13:26:00 EDT, Tablet, [facility]/pharmacy #[id number], Partial fill upon patient request [...] 05/31/22 13:26:00 EDT, Route to Pharmacy Electronically, [facility]/pharmacy #[id number], 149.86, cm, 10... Start Date: 05/31/22 Stop Date: 05/26/23 Status: Ordered oxymeter oxymeter, See Instructions, # [...] 8.5 each, Refills 5, Tot. Refills 5, 03/28/22 11:21:00 EDT, Instructions Replace Required Details, Route to Pharmacy Electronically, [id number]... Start Date: 03/28/22 Status: Ordered Pulse Oximeter Pulse Oximeter, See Instructions, # 1 each, Refills 0, Tot. Refills 0, Maintenance, For COVID Diagnosis (U07.1), 07/17/22 12:09:00 EST, Supply, 149.8, cm, 07/17/22 10:22:00 EST, Height, 83.3, kg, 06/14/22 18:50:00 EDT, Dry Weight Start Date: 07/17/22 Status: Ordered Vitamin B2 100 mg oral tablet See Instructions, TOME KRYSTEN TABLETA DOS VECES AL JULIAN, # 60 tablet, 4 Refills, Maintenance, [facility] [id number], 152, cm, 11/06/20 10:17:00 EDT, Height, 81, kg, 11/01/19 19:28:00 EDT, Dry Weight Start Date: 03/07/21 Status: Ordered Zithromax 250 mg oral tablet 1 pack/packet, By Mouth, Once, # 6 tablet, 0 Refills, Soft Stop, 01/05/23 23:08:00 EDT, Tablet, [facility]/pharmacy #[id number], Partial fill upon patient request [...] obesity (BMI 35.0-39.9) with comorbidity Confirmed Active Social History Social History Type Response Smoking Status Never (less than 100 in lifetime) entered on: 06/14/22 Sex Patient Care team information Care Team Personnel Name: Jesiak Hua RN Position: [facility] RN Member Role: Primary Care Nurse Name: Milton Gross NP Position: [facility] PCO Associate Professional Member Role: PCP Address: Address: [address] [place] [address]- Care Team Related Persons Name: YASMIN FISHER Address: home [address] [place] [address]
--- OUTSIDE RECORDS SUMMARY | 2023-07-21 12:58 | XMS_ITS | Continuity of Care Document ---
Author Name Unknown Organization [facility] Address [address] [place] [id number]- Care Team Providers Care Supervising Appraiser Name Role Phone Renato PICTURE COPYIST, Milton Loyola Primary Care Physicia n Encounter [facility] Date(s): 09/04/21 - 01/02/22 [facility] [address] [place] [id number]- Attending Physician: Niles Martinez MD Admitting Physician: Niles Martinez MD Allergies, Adverse Reactions, Alerts Substance Reaction [...] Patient Refuses 1Result Comment: NS DIL LOT [id number] EXP 11/2022 2Result Comment: DILUENT LOT#: [id number] EXP: 11/14 MFG: FRESENSIUS Medications albuterol 0.083% inhalation solution 3 mL = 2.5 mg, Inhalation, Every 6 hours, PRN for wheezing, # 25 each, 11 Refills, Maintenance, 10/06/20 12:25:00 EST, Solution, [id number], 152, cm, 06/01/20 9:54:00 EDT, Height, 81, kg, 11/01/19 19:28:00 EDT, Dry Weight Start Date: 10/06/20 Status: Ordered Alcohol Wipes See Instructions, # 100 each, Refills 5, Tot. Refills 5, Maintenance, DM 250.02. Use before BS control and lantus, 10/06/20 12:19:00 EST, Compound, 152, cm, 06/01/20 9:54:00 EDT, Height, 81, kg, 11/01/19 19:28:00 EDT, Dry Weight Start Date: 10/06/20 Status: Ordered Aspirin Low Dose 81 mg oral delayed release tablet See Instructions, ASAD BASHIR TABLETA [employer] MIRANDA, # 30 tablet, 11 Refills, [id number], 149.86, cm, 08/15/21 11:29:00 EST, Height, 85.7, kg, 07/24/21 14:26:00 EST, Dry Weight Start Date: 10/16/21 Status: Ordered atorvastatin 10 mg oral tablet See Instructions, ASAD BASHIR TABLETA ePARS, # 30 tablet, 5 Refills, [facility]226, 149.86,cm, 08/15/21 11:29:00 EST, Height, 85.7, kg, 07/24/21 14:26:00 EST, Dry Weight Start Date: 10/29/21 Status: Ordered BD Ultra-Fine pen needles, BERTRAM 4 mm x 32 G BD Ultra-Fine pen needles, BERTRAM 4 mm x 32 G, See Instructions, # 150 each, Refills 11, Tot. [id number], Maintenance, Use for times a days with insulin. DM E119, 10/06/20 12:18:00 EST, Compound, 152, cm, 06/01/20 9:54:00 EDT, Height, 81, kg, 11/01/19 1... Start Date: 10/06/20 Status: Ordered Blood Pressure Monitor See Instructions, # 1 each, Maintenance, check daily, 12/23/16 10:42:41, Compound Start Date: 12/23/16 Status: Ordered busPIRone 5 mg oral tablet 1, tablet, By Mouth, 3 times a day, # 90 tablet, Refills 1, Route to Pharmacy Electronically, [facility], 149.86, cm, 08/15/21 11:29:00 EST, Height, 85.7, kg, 07/24/21 14:26:00 EST, Dry Weight Start Date: 12/25/21 Status: Ordered Compression Stockings See Instructions, # [...] Refills 0, Tot. Refills 0, Maintenance, AutoCPAP - , 07/25/21 12:56:00 EST, Compound Start Date: 07/25/21 Status: Ordered diclofenac sodium 50 mg oral delayed release tablet 1 tablet = 50 mg, By Mouth, 2 times a day, with food [place] label, # 60 tablet, 3 Refills, Maintenance, 07/24/21 15:01:00 EST, [facility]/pharmacy #[id number], Partial fill upon patient request if the prescription is for a schedule II opioid drug., 152, cm, 06/27... Start Date: 07/24/21 Stop Date: 11/21/21 Status: Ordered ergocalciferol 88325 iu oral capsule See Instructions, TOME 1 CAPSULA POR VIA ORAL ONCE WEEKLY, # 4 capsule, Refills 4, Instructions Replace Required Details, Route to Pharmacy Electronically, [id number], 149.86, cm, 08/15/21 11:29:00 EST, Height, 85.7, kg, 07/24/21 14:26:00 EST, Start Date: 09/24/21 Status: Ordered Escitalopram = 20 mg, By Mouth, Daily, 0 Refills, Maintenance, 05/13/19 15:46:32 EDT Start Date: 05/13/19 Status: Ordered Eucerin Plus topical lotion 1 application, Topically, 2 times a day, PRN for dry skin, # 600 mL, 1 Refills, Maintenance, 06/01/21 13:51:00 EDT, Lotion, [facility]/pharmacy #[id number], Partial fill upon patient request if the [...] Dry Weight Start Date: 10/06/20 Status: Ordered FREESTYLE LITE TEST STRIP FREESTYLE LITE TEST STRIP, See Instructions, # 100 Unknown, 11 Refills, USE TO TEST BLOOD GLUCOSE GIBRAN VECES AL JULIAN, 149.86, cm, 08/15/21 11:29:00 EST, Height, 85.7, kg, 07/24/21 14:26:00 EST, Dry Weight Start Date: 10/15/21 Status: Ordered Freestyle Lite Test Strips See Instructions, # 100 each, Refills 11, Tot. Refills 11, Maintenance, E11.65 on insulin To Test TID, 10/06/20 12:19:00 EST, Compound, 152, cm, 06/01/20 9:54:00 EDT, Height, 81, kg, 11/01/19 19:28:00 EDT, Dry Weight Start Date: 10/06/20 Status: Ordered Humalog Kwik Pen 100 units/mL subcutaneous injection See Instructions, INJECT 15 UNITS POR VIA SUBCUTANEA GIBRAN VECES AL JULIAN ANTES DE LAS COMIDAS, # 15 Unknown, 5 Refills, [facility] STORE [id number], 149.86, cm, 08/15/21 11:29:00 EST, Height, 85.7, kg, 07/24/21 14:26:00 EST, Dry Weight Start Date: 11/13/21 Status: Ordered Imitrex 50 mg oral tablet See Instructions, 1 tablet By Mouth at onset of headache. May repeat once in 2 hours. Not > 4/ week., # 9 tablet, 0 Refills, Maintenance, 01/03/20 13:01:00 EDT, [facility]/pharmacy #[id number], 152, cm, 11/01/19 19:28:00 [...] 09/26/22 12:17:00 EST, 10/01/21 12:17:00 EST, Solution, [facility]/pharmacy #[id number], 152, cm, 05/04/21 13:50:00 EDT, Height, 85.2, kg, 04/18/21 13:24:00 EDT, Dry... Start Date: 10/01/21 Stop Date: 09/26/22 Status: Ordered loratadine 10 mg oral tablet See Instructions, ASAD SHAWA TODOS LOS MIRANDA, # 30 tablet, Refills 5, Instructions Replace Required Details, Route to Pharmacy Electronically, [facility] STORE 43099, 149.86, cm, 08/15/21 11:29:00 EST,Height, 85.7, kg, 07/24/21 14:26:00 EST, Dry Weight Start Date: 09/27/21 Status: Ordered meclizine 25 mg oral tablet 1 tablet = 25 mg, By Mouth, 3 times a day, PRN for dizziness, # 30 tablet, 0 Refills, Maintenance, 04/08/21 22:48:00 EDT, Tablet, [facility]/pharmacy #[id number], Partial fill upon patient request if the prescription is for a schedule II opioid drug., 152, cm, 03/... Start Date: 04/08/21 Status: Ordered HeyCrowd COVID-19 Vaccine 30 mcg/0.3 mL preservative-free intramuscular suspension 0.3 mL = 30 mcg, Intramuscular, Once, use our staff, # 0.3 mL, 0 Refills, Soft Stop, 05/04/21 14:12:00 EDT, Suspension, Partial fill upon patient request if the prescription is for a schedule II opioid drug. Start Date: 05/04/21 Status: Ordered ProAir HFA 90 mcg/inh inhalation aerosol with adapter See Instructions, INHALE 2 PUFFS CADA CUATRO HORAS CUANDO SEA NECESARIO FOR WHEEZING, # 8.5 each, Refills 5, Instructions Replace Required Details, Route to Pharmacy Electronically, [id number], [facility] STORE 90950, 149.86, cm, 12... Start Date: 10/15/21 Status: Ordered raised toilt seat raised toilt seat, See Instructions, # 1 each, Refills 0, Tot. Refills 0, Maintenance, DX obesity ,osteoarthritis, 08/06/21 16:32:00 EST, Supply, 152, cm, 07/24/21 14:26:00 EST, Height, 85.7, kg, 07/24/21 14:26:00 EST, Dry Weight Start Date: 08/06/21 Status: Ordered Shower Bench See Instructions, # 1 each, Maintenance, Dx diabetes neuropathy, 06/01/21 13:55:00 EDT, Supply Start Date: 06/01/21 Status: Ordered shower chair shower chair, See Instructions, # 1 each, Refills 0, Tot. Refills 0, Maintenance, DX diabetes neuropathy, 06/01/21 13:49:00 EDT, Supply Start Date: 06/01/21 Status: Ordered Vitamin B2 100 mg oral tablet See Instructions, ASAD LEZAMA AL JULIAN, # 60 tablet, 4 Refills, Maintenance, [facility] [id number], 152, cm, 11/06/20 10:17:00 EDT, Height, 81, kg, 11/01/19 19:28:00 EDT, Dry Weight Start Date: 03/07/21 Status: Ordered Problem List Condition Effective Dates Status Health Status Inform ant Annual physical exam(Confirmed) Active Asthma(Confirmed) Active Depression(Confirmed) Active Diabetes mellitus(Confirmed) Active Hypertension(Confirmed) Active Lactic acidosis(Confirmed) Active Meningioma(Confirmed) Active Myalgia(Confirmed) Active Obese class II(Confirmed) Active Obstructive sleep apnea(Confirmed) Active Social History Social History Type Response Smoking Status Never smoker; Tobacc o user in household: No; Type: Cigarettes entered on: 11/07/14 Sex
--- OUTSIDE RECORDS SUMMARY | 2023-07-21 12:58 | XMS_ITS | Continuity of Care Document ---
Author Name Unknown Organization [facility] Address [address] [place] [address]- Care Team Providers Care Cash Reconciliation Specialist Name Role Phone Renato MORRISON, Milton Loyola Primary Care Physicia n Encounter [facility] Date(s): 11/03/20 - 12/21/20 [facility] [address] [place] [address]- Attending Physician: Akhil Eastman MD Admitting Physician: [...] Refills, Maintenance, 10/06/20 12:25:00 EST, [facility], [id number], 152, cm, 06/01/20 9:54:00 EDT, Height, 81, kg, 11/01/19 19:28:00 EDT, Dry Weight Start Date: 10/06/20 Status: Ordered albuterol CFC free 90 mcg/inh inhalation aerosol 2, puffs, Inhalation, Every 4 hours, PRN, # 18 Gm, Refills 11, Tot. Refills 11, Maintenance, 10/06/20 12:25:00 EST, Aerosol, Route to Pharmacy Electronically, [id number], [facility]/pharmacy #[id number], 152, cm, 06/01/20 9:54:00 [...] 10/06/20 12:25:00 EST, Route to Pharmacy Electronically, [facility]/pharmacy #[id number], 152, cm, 06/01/20 9:54:00 EDT, Height, 81, kg, 11/01/19 19:28:00 EDT, Dry Weight Start Date: 10/06/20 Status: Ordered atorvastatin 10 mg oral tablet 1 tablet = 10 mg, By Mouth, Daily, # 30 tablet, 5 Refills, Maintenance, 11/06/20 11:03:00 EDT, [facility]/pharmacy #[id number], Partial fill upon patient request if the prescription is for a schedule II opioid drug., 152, cm, 11/06/20 10:17:00 EDT, Height, 81, kg,... Start Date: 11/06/20 Stop Date: 05/05/21 Status: Ordered baclofen 5 mg oral tablet 1 tablet = 5 mg, By Mouth, 3 times a day, may cause drowsiness., # 42 tablet, 0 Refills, Maintenance, 12/14/20 11:40:00 EDT, Tablet, [id number], Partial fill upon patient request if the prescription is for a schedule II opioid drug., 152, cm,... Start Date: 12/14/20 Stop Date: 12/28/20 Status: Ordered BD Ultra-Fine pen needles, BERTRAM 4 mm x 32 G BD Ultra-Fine pen needles, BERTRAM 4 mm x 32 G, See Instructions, # 150 each, Refills 11, Tot. [id number], Maintenance, Use for times a days with insulin. DM E119, 10/06/20 12:18:00 EST, Compound, 152, cm, 06/01/20 9:54:00 EDT, Height, 81, kg, 11/01/19 1... Start Date: 10/06/20 Status: Ordered BENGAY Arthritis topical cream See Instructions, rub into areas of pain and muscle tightness; instructions in [place]bour[place], # 1 each, 2Refills, Maintenance, 12/14/20 11:39:00 EDT, [facility]/pharmacy #[id number], Partial fill upon patient [...] 11/28/20 10:24:00 EDT, Route to Pharmacy Electronically, [facility]/pharmacy #[id number], 152, cm, 06/01/20 9:54:00 [...] 11 Refills, Maintenance, 10/06/20 12:22:00 EST, Lotion, [facility]/pharmacy #[id number], 1 application Topically 2 [...] 11 Refills, Maintenance, 10/06/20 12:21:00 EST, Solution, [facility]/pharmacy #[id number], Partial fill upon patient request if the prescription is for a schedule II opio... Start Date: 10/06/20 Status: Ordered HumaLOG KwikPen 100 units/mL injectable solution = 15 units, Subcutaneous Infusion, 3 times a day before meals, Dx E11.9. D/C admelog same dose 15 units . give kwik pen, # 15 mL, 11 Refills, Maintenance, 10/06/20 12:20:00 EST, [facility]/pharmacy #[id number], 152, cm, 06/01/20 9:54:00 [...] 10/01/21 12:17:00 EST, 10/06/20 12:17:00 EST, Solution, [facility]/pharmacy #[id number], 152, cm, 06/01/20 9:54:00 EDT, Height, 81, kg, 11/01/19 19:28:00 EDT, Dry We... Start Date: 10/06/20 Stop Date: 10/01/21 Status: Ordered loratadine 10 mg oral tablet 10 mg, 1, tablet, By Mouth, Daily, # 30 tablet, Refills 5, Tot. Refills 5, Maintenance, 02/20/21 9:48:00 EDT, Route to Pharmacy Electronically, [facility]/pharmacy #[id number], 152, cm, 06/01/20 9:54:00 [...] NECESARIO DIZZINESS, #50 tablet, 1 Refills, Acute, [facility] ST[facility] [id number], 152, cm, 11/06/20 10:17:00 EDT, Height, 81, kg, 11/01/19 19:28:00 EDT, Dry Weight Start Date: 12/07/20 Status: Ordered metoprolol 25 mg oral tablet 25 mg, 1, tablet, By Mouth, 2 times a day, for 90 days, This is an increase in dose., # 180 tablet,Refills 3, Tot. Refills 3, Hard Stop 10/21/21 16:17:00 EST, 10/26/20 16:17:00 EST, Route to Pharmacy Electronically, [facility]/pharmacy #[id number], 152, cm, 06/01... Start Date: 10/26/20 Stop Date: 10/21/21 Status: Ordered riboflavin 100 mg oral tablet 1 tablet = 100 mg, By Mouth, 2 times a day, # 60 tablet, 4 Refills, Maintenance, 10/06/20 12:25:00 EST, [facility]/pharmacy #[id number], 152, cm, 06/01/20 9:54:00 EDT, Height, 81, kg, 11/01/19 19:28:00 EDT, Dry Weight Start Date: 10/06/20 Stop Date: 03/05/21 Status: Ordered sulindac 200 mg oral tablet 1 tablet = 200 mg, By Mouth, 2 times a day, # 60 tablet, 2 Refills, Maintenance, 12/14/20 11:44:00 EDT, Tablet, [facility]/pharmacy #[id number], Partial fill upon patient request if the prescription is for a schedule II opioid drug., 152, cm, 11/06/20 10:17:00 EDT... Start Date: 12/14/20 Status: Ordered Vitamin D3 1000 intl units oral tablet 1 tablet = 1,000 International_Units, By Mouth, Daily, # 30 tablet, 11 Refills, Maintenance, 10/06/20 12:25:00 EST, Tablet, [facility]/pharmacy #[id number], 152, cm, 06/01/20 9:54:00 [...]
--- OUTSIDE RECORDS SUMMARY | 2023-07-21 12:58 | XMS_ITS | Continuity of Care Document ---
Author Name Unknown Organization [facility] ter Address [address] [place] [id number]- Care Team Providers Care Tubular Splitting Machine Tender Name Role Phone Renato MORRISON, Milton Loyola Primary Care Physicia n En[place] [facility] [id number] Date(s): 06/17/22 - 06/18/[address] [address]- Discharge Disposition: A-D/C Walkout Attending Physician: Not on Staff, Attending MD Admitting Physician: Not on Staff, Admitting MD Referring Physician: Not on Staff, Referring MD Allergies, Adverse Reactions, Alerts Substance Reaction [...] Patient Refuses 1Result Comment: NS DIL LOT [id number] EXP 11/2022 2Result Comment: DILUENT LOT#: [id number] EXP: 11/14 MFG: FRESENSIUS Medications acetaminophen 325 mg oral tablet 650 mg, 2, tablet, By Mouth, Every 4 hours, for 7 days, # 84 tablet, Refills 0, Tot. Refills 0, Acute 06/22/22 10:53:00 EDT, 06/15/22 10:53:00 EDT, Route to Pharmacy Electronically, [facility], Partial fill upon patient request if the pr... Start Date: 06/15/22 Stop Date: 06/22/22 Status: Ordered albuterol 0.083% inhalation solution 3 mL = 2.5 mg, Inhalation, Every 6 hours, PRN for wheezing, # 25 each, 11 Refills, Maintenance, 05/24/22 14:28:00 EDT, Solution, [facility]/pharmacy #[id number], 149.86, cm, 05/24/22 13:53:00 EDT, Height, 85.7, kg, 07/24/21 14:26:00 EST, Dry Weight Start Date: 05/24/22 Status: Ordered Alcohol Wipes See Instructions, # 100 each, Refills 5, Tot. Refills 5, Maintenance, DM 250.02. Use before BS control and lantus, 05/24/22 14:27:00 EDT, Compound, 149.86, cm, 05/24/22 13:53:00 EDT, Height, 85.7, kg, 07/24/21 14:26:00 EST, Dry Weight Start Date: 05/24/22 Status: Ordered Aspirin Low Dose 81 mg oral delayed release tablet See Instructions, ASAD KRYSTEN TABLETA MARIANNE RODRÍGUEZ MIRANDA, # 30 tablet, 11 Refills, 05/24/22 14:42:00 EDT, [facility]/pharmacy #[id number], 149.86, cm, 05/24/22 13:53:00 EDT, Height, 85.7, kg, 07/24/21 14:26:00 EST, Dry Weight Start Date: 05/24/22 Status: Ordered atorvastatin 10 mg oral tablet See Instructions, TOME KRYSTEN TABLETA TOS MARCOS MIRANDA, # 30 tablet, 11 Refills, 05/24/22 14:42:00 EDT, [id number], 149.86, cm, 05/24/22 13:53:00 EDT, Height, 85.7, kg, 07/24/21 14:26:00 EST, Dry Weight Start Date: 05/24/22 Status: Ordered BD Ultra-Fine pen needles, BERTRAM 4 mm x 32 G BD Ultra-Fine pen needles, BERTRAM 4 mm x 32 G, See Instructions, # 150 each, Refills 11, Tot. [id number], Maintenance, Use for times a days with [...] Compound Start Date: 07/25/21 Status: Ordered ergocalciferol 20985 iu oral capsule See Instructions, TOME 1 CAPSULA POR VIA ORAL ONCE WEEKLY, # 4 capsule, Refills 4, Tot. Refills 4, 05/24/22 14:29:00 EDT, Instructions Replace Required Details, Route to Pharmacy Electronically, [facility]/pharmacy #[id number], 149.86, cm, 05/24/22 13:53:00 EDT, H... Start Date: 05/24/22 Status: Ordered Escitalopram = 20 mg, By Mouth, Daily, 0 Refills, Maintenance, 05/13/19 15:46:32 EDT Start Date: 05/13/19 Status: Ordered Eucerin Plus topical lotion 1 application, Topically, 2 times a day, PRN for dry skin, # 600 mL, 1 Refills, Maintenance, 05/24/22 14:28:00 EDT, Lotion, [facility]/pharmacy #[id number], Partial fill upon [...] Dry Weight Start Date: 05/24/22 Status: Ordered Humalog Kwik Pen 100 units/mL subcutaneous injection See Instructions, INJECT 15 UNITS POR VIA SUBCUTANEA GIBRAN VECES AL JULIAN ANTES DE LAS COMIDAS, # 15 Unknown, 5 Refills, 05/24/22 14:29:00 EDT, [facility]/pharmacy #[id number], 149.86, cm, 05/24/22 13:53:00 EDT, Height, 85.7, kg, 07/24/21 14:26:00 EST, Dry Weight Start Date: 05/24/22 Status: Ordered ibuprofen 600 mg oral tablet 600 mg, 1, tablet, By Mouth, 3 times a day, PRN, for 7 days, # 40 tablet, Refills 0, Tot. Refills 0, Acute 06/22/22 10:53:00 EDT, Pain , Mild, 06/15/22 10:53:00 EDT, Route to Pharmacy Electronically,[facility], Partial fill upon patient... Start Date: 06/15/22 Stop Date: 06/22/22 Status: Ordered Imitrex 50 mg oral tablet See Instructions, 1 tablet By Mouth at onset of headache. May repeat once in 2 hours. Not > 4/ week., # 9 tablet, 0 Refills, Maintenance, 01/03/20 13:01:00 EDT, [facility]/pharmacy #[id number], 152, cm, 11/01/19 [...] # 12 mL, 11 Refills, Hard Stop 09/15/24 12:17:00 EST, 09/21/23 12:17:00 EST, Solution, [facility]/pharmacy #[id number], 149.86, cm, 05/24/22 13:53:00 EDT, Height, 85.7, kg, 07/24/21 14:26:00 EST,... Start Date: 09/21/23 Stop Date: 09/15/24 Status: Ordered loratadine 10 mg oral tablet See Instructions, ASAD BURKETT TODOS LOS MIRANDA, # 30 tablet, Refills 5, Tot. Refills 5, 05/24/2214:42:00 EDT, Instructions Replace Required Details, Route to Pharmacy Electronically, [facility]/pharmacy#4471, 149.86, cm, 05/24/22 13:53:00 EDT, Height, 8... Start Date: 05/24/22 Status: Ordered meclizine 25 mg oral tablet 1 tablet = 25 mg, By Mouth, 3 times a day, PRN for dizziness, # 30 tablet, 0 Refills, Maintenance, 05/31/22 13:26:00 EDT, Tablet, [facility]/pharmacy #[id number], Partial fill upon [...] 05/31/22 13:26:00 EDT, Route to Pharmacy Electronically, [facility]/pharmacy #[id number], 149.86, cm, 10... Start Date: 05/31/22 Stop Date: 05/26/23 Status: Ordered ProAir HFA 90 mcg/inh inhalation aerosol with adapter See Instructions, INHALE 2 PUFFS CADA CUATRO HORAS CUANDO SEA NECESARIO FOR WHEEZING, # 8.5 each, Refills 5, Tot. Refills 5, 03/28/22 11:21:00 EDT, Instructions Replace Required Details, Route to Pharmacy Electronically, [id number]... Start Date: 03/28/22 Status: Ordered sulindac 200 mg oral tablet 1 tablet = 200 mg, By Mouth, 2 times a day, # 60 tablet, 2 Refills, Maintenance, 05/24/22 14:29:00 EDT, Tablet, [facility]/pharmacy #[id number], Partial fill upon patient request if the prescription is for a schedule II opioid drug., 149.86, cm, 05/24/22 13:53:00... Start Date: 05/24/22 Status: Ordered Vitamin B2 100 mg oral tablet See Instructions, TOME KRYSTEN TABLETA DOS VECES AL JULIAN, # 60 tablet, 4 Refills, Maintenance, [facility] [id number], 152, cm, 11/06/20 10:17:00 EDT, Height, 81, kg, 11/01/19 19:28:00 EDT, Dry Weight Start Date: 03/07/21 Status: Ordered Problem List Condition Confirmation Course Effective Dates Status Health St atus Informant Annual physical exam Confirmed Active Asthma Confirmed Active Depression Confirmed Active Diabetes mellitus Confirmed Active Hypertension Confirmed Active Lactic acidosis Confirmed Active Meningioma Confirmed Active Myalgia Confirmed Active Obese class II Confirmed Active Obstructive sleep apnea Confirmed Active Results Radiology Reports * Exam Date Time Procedure Performing Provider Status 06/17/22 2:21 PM Chest 2 Views Frontal and Lat Susanna BlountJack Ellison (Verified) Notes: (Chest 2 Views Frontal and Lat) Reason For Exam: Chest Pain;Other: RESULT: Chest 2 Views Frontal and Lat Chest 2 Views Frontal and Lat Hx of Present Illness: coming from home. dc'd from here the other day after having varicose vein surgery. reporting increased tiredness and difficulty breathing. C o chest prassure, back pain and sob. pt reports her O2 was 82% at home.; Reason: Other:; Chest Pain; Clinical Question(s): Other: COMPARISON: None. FINDINGS: LINES AND TUBES: None. LUNGS AND PLEURA: Clear lungs. Normal pulmonary vascularity. No pleural effusion. No pneumothorax. HEART, MEDIASTINUM AND SANDEE: Heart is normal in size. Normal mediastinal and hilar contour. BONES AND SOFT TISSUES: No acute abnormality. IMPRESSION: No acute abnormality. WSN: [id number] Ordering Physician: Wu Flowers Dictated By: Cory Claudio MD, V Dictated Date/Time: 06/17/22 2:24 pm Reviewed By: Cory Claudio MD, V Signed By: Cory Claudio MD, V Signed Date/Time: 06/17/22 2:24 pm Transcribed By: KASSIE Transcribed Date/Time: 06/17/22 2:24 pm Vital Signs Most recent to oldest [Reference Range]: 1 2 Oxygen Saturation [94-100 %] 97 % (06/17/22 6:40 PM) 96 % (06/17/22 12:42 PM) Pulse Rate [55-90 bpm] 79 bpm (06/17/22 6:40 PM) 88 bpm (06/17/22 12:42 PM) Blood Pressure [90-138/55-84 mm Hg] 136/ 76mm Hg (06/17/22 6:40 PM) 148/89mm Hg *H* (06/17/22 12:42 PM) Respiratory Rate [16-30 br/min] 20 br/mi n (06/17/22 6:40 PM) 15 br/min *L* (06/17/22 12:42 PM) Temperature [96.8-100.4 DegF] 98 DegF (06/17/22 6:40 PM) 98.7 DegF (06/17/22 12:42 PM) Mode of Delivery (Oxygen) Room air (06/17/22 6:40 PM) Room air (06/17/22 12:42 PM) Blood pressure sites Arm, right (06/17/22 6:40 PM) Arm, right (06/17/22 12:42 PM) Temperature Route Oral (06/17/22 6:40 PM) Oral (06/17/22 12:42 PM) Social History Social History Type Response Smoking Status Never (less than 100 in lifetime) entered on: 06/14/22 Sex Note * [facility] , CIS S: TRANSCRIBE Cory Claudio MD, V: VERIFY Event Display: Result: Authored Date: [id number] Chest 2 Views Frontal and Lat Hx of Present Illness: coming from home. dc'd from here the other day after having varicose vein surgery. reporting increased tiredness and difficulty breathing. C o chest prassure, back pain and sob. pt reports her O2 was 82% at home.; Reason: Other:; Chest Pain; Clinical Question(s): Other: COMPARISON: None. FINDINGS: LINES AND TUBES: None. LUNGS AND PLEURA: Clear lungs. Normal pulmonary vascularity. No pleural effusion. No pneumothorax. HEART, MEDIASTINUM AND SANDEE: Heart is normal in size. Normal mediastinal and hilar contour. BONES AND SOFT TISSUES: No acute abnormality. IMPRESSION: No acute abnormality. WSN: [id number] Ordering Physician: Wu Flowers Dictated By: Cory Claudio MD, V Dictated Date/Time: 06/17/22 2:24 pm Reviewed By: Cory Claudio MD, V Signed By: Cory Claudio MD, V Signed Date/Time: 06/17/22 2:24 pm Transcribed By: KASSIE Transcribed Date/Time: 06/17/22 2:24 pm Patient Care team information Personnel Name: Milton Gross NP Address: Address: [address] [place] [address]
--- OUTSIDE RECORDS SUMMARY | 2023-07-21 12:58 | XMS_ITS | Continuity of Care Document ---
Author Name Unknown Organization [facility] Address [address] [place] [address]- Care Team Providers Care Cheese Cook Name Role Phone Renato MORRISON, Milton Loyola Primary Care Physicia n [place] [facility] [place]/04/21 - 06/27/21 [facility] [address] [place] [address]- Attending Physician: Akhil Eastman MD Admitting Physician: [...] Patient Refuses 1Result Comment: NS DIL LOT [id number] EXP 11/2022 2Result Comment: DILUENT LOT#: [id number] EXP: 11/14 MFG: FRESENSIUS Medications albuterol 0.083% inhalation solution 3 mL = 2.5 mg, Inhalation, Every 6 hours, PRN for wheezing, # 25 each, 11 Refills, Maintenance, 10/06/20 12:25:00 EST, Solution, [facility]/pharmacy #[id number], 152, cm, 06/01/20 9:54:00 EDT, Height, 81, kg, 11/01/19 19:28:00 EDT, Dry Weight Start Date: 10/06/20 Status: Ordered albuterol CFC free 90 mcg/inh inhalation aerosol 2, puffs, Inhalation, Every 4 hours, PRN, # 18 Gm, Refills 11, Tot. Refills 11, Maintenance, 10/06/20 12:25:00 EST, Aerosol, Route to Pharmacy Electronically, [id number], [facility]/pharmacy #[id number], 152, cm, 06/01/20 9:54:00 [...] 10/06/20 12:25:00 EST, Route to Pharmacy Electronically, [facility]/pharmacy #[id number], 152, cm, 06/01/20 9:54:00 EDT, Height, 81, kg, 11/01/19 19:28:00 EDT, Dry Weight Start Date: 10/06/20 Status: Ordered atorvastatin 10 mg oral tablet 1 tablet = 10 mg, By Mouth, Daily, # 30 tablet, 5 Refills, Maintenance, 05/05/21 11:03:00 EDT, [facility]/pharmacy #[id number], Partial fill upon patient request if the prescription is for a schedule II opioid drug., 152, cm, 04/18/21 13:24:00 EDT, Height, 85.2, k... Start Date: 05/05/21 Stop Date: 11/01/21 Status: Ordered baclofen 5 mg oral tablet 1 tablet = 5 mg, By Mouth, 3 times a day, may cause drowsiness., # 42 tablet, 0 Refills, Maintenance, 12/14/20 11:40:00 EDT, Tablet, [facility]/pharmacy #[id number], Partial fill upon patient request if the prescription is for a schedule II opioid drug., 152, cm,... Start Date: 12/14/20 Stop Date: 12/28/20 Status: Ordered BD Ultra-Fine pen needles, BERTRAM 4 mm x 32 G BD Ultra-Fine pen needles, BERTRAM 4 mm x 32 G, See Instructions, # 150 each, Refills 11, Tot. [id number], Maintenance, Use for times a days with insulin. DM E119, 10/06/20 12:18:00 EST, Compound, 152, cm, 06/01/20 9:54:00 EDT, Height, 81, kg, 11/01/19 1... Start Date: 10/06/20 Status: Ordered BENGAY Arthritis topical cream See Instructions, rub into areas of pain and muscle tightness; instructions in Bulgarian, # 1 each, 2Refills, Maintenance, 12/14/20 11:39:00 EDT, [facility]/pharmacy #[id number], Partial fill upon patient [...] 11/28/20 10:24:00 EDT, Route to Pharmacy Electronically, [facility]/pharmacy #[id number], 152, cm, 06/01/20 9:54:00 [...] Compound Start Date: 04/18/21 Status: Ordered ergocalciferol 14798 iu oral capsule 50,000 International_Units, 1, capsule, By Mouth, Every week, # 18 capsule, Refills 0, Tot. Refills0, Maintenance, 06/01/21 13:45:00 EDT, Route to Pharmacy Electronically, [facility]/pharmacy #[id number], Partial fill upon patient request if the prescription is f... Start Date: 06/01/21 Stop Date: 09/29/21 Status: Ordered Escitalopram By Mouth, Daily, 0 Refills, Maintenance, 05/13/19 15:46:32 EDT Start Date: 05/13/19 Status: Ordered Eucerin Plus topical lotion 1 application, Topically, 2 times a day, PRN for dry skin, # 600 mL, 11 Refills, Maintenance, 10/06/20 12:22:00 EST, Lotion, [facility]/pharmacy #[id number], 1 application Topically 2 times a day,PRN:for dry skin, 152, cm, 06/01/20 9:54:00 EDT, Height, 81, kg, 03/... Start Date: 10/06/20 Status: Ordered Eucerin Plus topical lotion 1 application, Topically, 2 times a day, PRN for dry skin, # 600 mL, 1 Refills, Maintenance, 06/01/21 13:51:00 EDT, Lotion, [facility]/pharmacy #[id number], Partial fill upon patient [...] 06/01/21 13:48:00 EDT, Route to Pharmacy Electronically, [facility]/pharmacy #[id number], Partial fill upon patient request if the prescription is for a schedule II... Start Date: 06/01/21 Stop Date: 07/31/21 Status: Ordered Humalog 100 u/ml subcutaneous injection = 15 units, Subcutaneous Injection, 3 times a day before meals, discontinue admelog, # 15 mL, 11 Refills, Maintenance, 05/04/21 14:14:00 EDT, Solution, [facility]/pharmacy #[id number], Partial fill upon patient request if the prescription is for a schedule II opio... Start Date: 05/04/21 Status: Ordered HumaLOG KwikPen 100 units/mL injectable solution = 15 units, Subcutaneous Infusion, 3 times a day before meals, Dx E11.9. D/C admelog same dose 15 units . give kwik pen, # 15 mL, 11 Refills, Maintenance, 10/06/20 12:20:00 EST, [facility]/pharmacy #[id number], 152, cm, 06/01/20 9:54:00 EDT, Height, 81, kg, ... Start Date: 10/06/20 Stop Date: 10/01/21 Status: Ordered Imitrex 50 mg oral tablet See Instructions, 1 tablet By Mouth at onset of headache. May repeat once in 2 hours. Not > 4/ week., # 9 tablet, 0 Refills, Maintenance, 01/03/20 13:01:00 EDT, [facility]/pharmacy #[id number], 152, cm, 11/01/19 19:28:00 [...] 09/26/22 12:17:00 EST, 10/01/21 12:17:00 EST, Solution, [facility]/pharmacy #[id number], 152, cm, 05/04/21 13:50:00 EDT, Height, 85.2, kg, 04/18/21 13:24:00 EDT, Dry... Start Date: 10/01/21 Stop Date: 09/26/22 Status: Ordered loratadine 10 mg oral tablet See Instructions, ASAD MIRANDA, # 30 tablet, Refills 5, Maintenance, Instructions Replace Required Details, Route to Pharmacy Electronically, [id number], 152, cm, 11/06/20 10:17:00 EDT, Height, 81, kg, 03/09/20 19:28:00 EDT, . Start Date: 04/03/21 Status: Ordered meclizine 25 mg oral tablet See Instructions, TOME KRYSTEN TABLETA POR VIA ORAL GIBRAN VECES AL JULIAN CUANDO SEA NECESARIO DIZZINESS, #50 tablet, 1 Refills, Acute, [id number], 152, cm, 11/06/20 10:17:00 EDT, Height, 81, kg, 11/01/19 19:28:00 EDT, Dry Weight Start Date: 12/07/20 Status: Ordered meclizine 25 mg oral tablet 1 tablet = 25 mg, By Mouth, 3 times a day, PRN for dizziness, # 30 tablet, 0 Refills, Maintenance, 04/08/21 22:48:00 EDT, Tablet, [facility]/pharmacy #[id number], Partial fill upon patient [...] 10/26/20 16:17:00 EST, Route to Pharmacy Electronically, [facility]/pharmacy #[id number], 152, cm, 06/01... Start Date: 10/26/20 Stop Date: 10/21/21 Status: Ordered [employer] COVID-19 Vaccine 30 mcg/0.3 mL preservative-free intramuscular [...] 2 Refills, Maintenance, 12/14/20 11:44:00 EDT, Tablet, [facility]/pharmacy #[id number], Partial fill upon patient request if the prescription is for a schedule II opioid drug., 152, cm, 11/06/20 10:17:00 EDT... Start Date: 12/14/20 Status: Ordered Vitamin B2 100 mg oral tablet See Instructions, ASAD SHAWA DOS VECES AL JULIAN, # 60 tablet, 4 Refills, Maintenance, [facility] [id number], 152, cm, 11/06/20 10:17:00 EDT, Height, 81, [...]
--- OUTSIDE RECORDS SUMMARY | 2023-07-21 12:58 | XMS_ITS | Continuity of Care Document ---
Author Name Unknown Organization [facility] Address [address] [place] [address]- Care Team Providers Care Hardware Engineer Name Role Phone Renato MORRISON, Milton Loyola Primary Care Physicia n [place] [facility] [place] 10/18/[address] [address]- Allergies, Adverse Reactions, Alerts Substance Reaction Severity Status traMADol tongue numbness--but she fell near [facility] Active Immunizations Given and Recorded Vaccine Date [...] 12:25:00 EST, Aerosol, Route to Pharmacy Electronically, [id number], [facility]/pharmacy #[id number], 152, cm, 06/01/20 9:54:00 EDT, [...] 10/27/20 12:21:00 EST, 10/06/20 12:21:00 EST, Cream, [facility]/pharmacy #[id number], 1 application Rectally 2 times a day,x7 days, 152, cm, 06/01/20 9:54:00 EDT, Height, 81, kg, ... Start Date: 10/06/20 Stop Date: 10/27/20 Status: Ordered aspirin 81 mg oral delayed release tablet 81 mg, 1, tablet, By Mouth, Daily, # 30 tablet, Refills 11, Tot. Refills 11, Maintenance, 10/06/20 12:25:00 EST, Route to Pharmacy Electronically, [facility]/pharmacy #[id number], 152, cm, 06/01/20 9:54:00 EDT, Height, 81, kg, 11/01/19 19:28:00 EDT, Dry Weight Start Date: 10/06/20 Status: Ordered BD Ultra-Fine pen needles, BERTRAM 4 mm x 32 G BD Ultra-Fine pen needles, BERTRAM 4 mm x 32 G, See Instructions, # 150 each, Refills 11, Tot. [id number], Maintenance, Use for times a days with [...] 11/28/20 10:24:00 EDT, [id number], cm, 06/01/20 9:54:00 EDT, Height, 81, kg, 10/31... Start Date: 11/28/20 Stop Date: 05/27/21 Status: Ordered Colace sodium 100 mg oral capsule 100 mg, 1, capsule, By Mouth, 2 times a day, PRN, for 30 days, # 60 capsule, Refills 5, Tot. Refills 5, Hard Stop 11/28/20 10:24:00 EDT, for constipation, 06/01/20 10:24:00 EDT, [id number], cm, 06/01/20 9... Start Date: [...] 11 Refills, Maintenance, 10/06/20 12:22:00 EST, Lotion, [facility]/pharmacy #[id number], 1 application Topically 2 times a day,PRN:for dry skin, 152, cm, 06/01/20 9:54:00 EDT, Height, 81, kg, 03... Start Date: 10/06/20 Status: Ordered Freestyle Lancets [...] 11 Refills, Maintenance, 10/06/20 12:21:00 EST, Solution, [facility]/pharmacy #[id number], Partial fill upon patient request if the prescription is for a schedule II opio... Start Date: 10/06/20 Status: Ordered HumaLOG KwikPen 100 units/mL injectable solution = 15 units, Subcutaneous Infusion, 3 times a day before meals, Dx E11.9. D/C admelog same dose 15 units . give kwik pen, # 15 mL, 11 Refills, Maintenance, 10/06/20 12:20:00 EST, [facility]/pharmacy #[id number], 152, cm, 06/01/20 9:54:00 EDT, [...] 10/01/21 12:17:00 EST, 10/06/20 12:17:00 EST, Solution, [facility]/pharmacy #[id number], 152, cm, 06/01/20 9:54:00 EDT, Height, 81, kg, 11/01/19 19:28:00 EDT, Dry We... Start Date: 10/06/20 Stop Date: 10/01/21 Status: Ordered loratadine 10 mg oral tablet 10 mg, 1, tablet, By Mouth, Daily, # 30 tablet, Refills 5, Tot. Refills 5, Maintenance, 02/20/21 9:48:00 EDT, Route to Pharmacy Electronically, [facility]/pharmacy #[id number], 152, cm, 06/01/20 9:54:00 EDT, [...] 11/03/20 12:27:00 EST, 10/06/20 12:27:00 EST, Tablet, [facility]/pharmacy #[id number], Partial fill upon patient request [...] 10/26/20 16:17:00 EST, [id number], cm, 06/01... Start Date: 10/26/20 Stop Date: 10/21/21 Status: Ordered metoprolol 25 mg oral tablet 25 mg, 1, tablet, By Mouth, 2 times a day, for 90 days, This is an increase in dose., # 180 tablet,Refills 3, Tot. Refills 3, Hard Stop 10/26/20 16:17:00 EST, 11/01/19 16:17:00 EDT, Route to Pharmacy Electronically, [facility]/pharmacy #[id number], 152, cm, 10/22... Start Date: 11/01/19 Stop Date: 10/26/20 Status: Ordered mupirocin 2% topical ointment 1 application, Topically, 3 times a day, for 10 days, # 22 Gm, 1 Refills, Acute 10/26/20 12:24:00 EST, 10/06/20 12:24:00 EST, Ointment, [facility]/pharmacy #[id number], Partial fill upon patient request if the prescription is for a schedule II opioid drug., 1 appl... Start Date: 10/06/20 Stop Date: 10/26/20 Status: Ordered mupirocin 2% topical ointment 1 application, Topically, 3 times a day, for 10 days, # 22 Gm, 1 Refills, Acute 11/15/20 12:24:00 EDT, 10/26/20 12:24:00 EST, Ointment, [facility]/pharmacy #[id number], Partial fill upon patient request if the prescription is for a schedule II opioid drug., 1 appl... Start Date: 10/26/20 Stop Date: 11/15/20 Status: Ordered riboflavin 100 mg oral tablet 1 tablet = 100 mg, By Mouth, 2 times a day, # 60 tablet, 4 Refills, Maintenance, 10/06/20 12:25:00 EST, [facility]/pharmacy #[id number], 152, cm, 06/01/20 9:54:00 EDT, Height, 81, kg, 11/01/19 19:28:00 EDT, Dry Weight Start Date: 10/06/20 Stop Date: 03/05/21 Status: Ordered sulindac 150 mg oral tablet See Instructions, TOME KRYSTEN TABLETA POR VIA ORAL DOS VECES AL JULIAN CUANDO SEA NECESARIO, # 60 tablet,2 Refills, 10/13/20 17:28:00 EST, [id number], 152, cm, 06/01/20 9:54:00 EDT, Height, 81, kg, 11/01/19 19:28:00 EDT, Dry Weight Start Date: 10/13/20 Status: Ordered Vitamin D3 1000 intl units oral tablet 1 tablet = 1,000 International_Units, By Mouth, Daily, # 30 tablet, 11 Refills, Maintenance, 10/06/20 12:25:00 EST, Tablet, [id number], 152, cm, 06/01/20 9:54:00 EDT, [...]
--- OUTSIDE RECORDS SUMMARY | 2023-07-21 12:58 | XMS_ITS | Continuity of Care Document ---
Author Name Unknown Organization [facility] Address [address] [place] [address]- Care Team Providers Care Contact Center Manager Name Role Phone Milton Gross NP Primary Care Physicia n Encounter [facility] [place] [place] [id number] Date(s): 08/23/21 - 09/22/21 [facility] [address] [place] [address]- Attending Physician: Jimenez Grant Admitting Physician: AdmtrJimenez Referring Physician: AdmtrJimenez Allergies, Adverse Reactions, Alerts Substance Reaction Severity [...] Patient Refuses 1Result Comment: NS DIL LOT [id number] EXP 11/2022 2Result Comment: DILUENT LOT#: [id number] EXP: 11/14 MFG: FRESENSIUS Medications albuterol 0.083% inhalation solution 3 mL = 2.5 mg, Inhalation, Every 6 hours, PRN for wheezing, # 25 each, 11 Refills, Maintenance, 10/06/20 12:25:00 EST, Solution, [id number], 152, cm, 06/01/20 9:54:00 EDT, Height, 81, kg, 11/01/19 19:28:00 EDT, Dry Weight Start Date: 10/06/20 Status: Ordered albuterol CFC free 90 mcg/inh inhalation aerosol 2, puffs, Inhalation, Every 4 hours, PRN, # 18 Gm, Refills 11, Tot. Refills 11, Maintenance, 10/06/20 12:25:00 EST, Aerosol, Route to Pharmacy Electronically, [id number], [facility]/pharmacy #[id number], 152, cm, 06/01/20 9:54:00 EDT, Hei... [...] 10/06/20 12:25:00 EST, [id number], cm, 06/01/20 9:54:00 EDT, Height, 81, kg, 11/01/19 19:28:00 EDT, Dry Weight Start Date: 10/06/20 Status: Ordered atorvastatin 10 mg oral tablet 1 tablet = 10 mg, By Mouth, Daily, # 30 tablet, 5 Refills, Maintenance, 05/05/21 11:03:00 EDT, [facility]/pharmacy #[id number], Partial fill upon patient request if the prescription is for a schedule II opioid drug., 152, cm, 04/18/21 13:24:00 EDT, Height, 85.2, k... Start Date: 05/05/21 Stop Date: 11/01/21 Status: Ordered BD Ultra-Fine pen needles, BERTRAM 4 mm x 32 G BD Ultra-Fine pen needles, BERTRAM 4 mm x 32 G, See Instructions, # 150 each, Refills 11, Tot. [id number], Maintenance, Use for times a days with insulin. DM E119, 10/06/20 12:18:00 EST, Compound, 152, cm, 06/01/20 9:54:00 EDT, Height, 81, kg, 11/01/19 1... Start Date: 10/06/20 Status: Ordered Blood Pressure Monitor See Instructions, # 1 each, Maintenance, check daily, 12/23/16 10:42:41, Compound Start Date: 12/23/16 Status: Ordered Compression Stockings See Instructions, # [...] Mouth, 2 times a day, with food Vietnamese label, # 60 tablet, 3 Refills, Maintenance, 07/24/21 15:01:00 EST, [facility]/pharmacy #[id number], Partial fill upon patient request if the prescription is for a schedule II opioid drug., 152, cm, 06/27... Start Date: 07/24/21 Stop Date: 11/21/21 Status: Ordered ergocalciferol 11345 iu oral capsule 50,000 International_Units, 1, capsule, By Mouth, Every week, # 18 capsule, Refills 0, Tot. Refills0, Maintenance, 06/01/21 13:45:00 EDT, Route to Pharmacy Electronically, [facility]/pharmacy #[id number], Partial fill upon patient request if the prescription is f... Start Date: 06/01/21 Stop Date: 09/29/21 Status: Ordered Escitalopram = 20 mg, By Mouth, Daily, 0 Refills, Maintenance, 05/13/19 15:46:32 EDT Start Date: 05/13/19 Status: Ordered Eucerin Plus topical lotion 1 application, Topically, 2 times a day, PRN for dry skin, # 600 mL, 1 Refills, Maintenance, 06/01/21 13:51:00 EDT, Lotion, [facility]/pharmacy #[id number], Partial fill upon patient request if [...] 11 Refills, Maintenance, 05/04/21 14:14:00 EDT, Solution, [facility]/pharmacy #[id number], Partial fill upon patient request if the prescription is for a schedule II opio... Start Date: 05/04/21 Status: Ordered Imitrex 50 mg oral tablet See Instructions, 1 tablet By Mouth at onset of headache. May repeat once in 2 hours. Not > 4/ week., # 9 tablet, 0 Refills, Maintenance, 01/03/20 13:01:00 EDT, [facility]/pharmacy #[id number], 152, cm, 11/01/19 19:28:00 EDT, Height, [...] 09/26/22 12:17:00 EST, 10/01/21 12:17:00 EST, Solution, [facility]/pharmacy #[id number], 152, cm, 05/04/21 13:50:00 EDT, Height, 85.2, kg, 04/18/21 13:24:00 EDT, Dry... Start Date: 10/01/21 Stop Date: 09/26/22 Status: Ordered loratadine 10 mg oral tablet See Instructions, ASAD BURKETT TODOS LOS MIRANDA, # 30 tablet, Refills 5, Maintenance, Instructions Replace Required Details, Route to Pharmacy Electronically, [id number], 152, cm, 11/06/20 10:17:00 EDT, Height, 81, kg, 11/01/19 19:28:00 EDT, DrBonilla.. Start Date: 04/03/21 Status: Ordered meclizine 25 mg oral tablet 1 tablet = 25 mg, By Mouth, 3 times a day, PRN for dizziness, # 30 tablet, 0 Refills, Maintenance, 04/08/21 22:48:00 EDT, Tablet, [facility]/pharmacy #[id number], Partial fill upon patient request if the prescription is for a schedule II opioid drug., 152, cm, .. Start Date: 04/08/21 Status: Ordered metoprolol 25 mg oral tablet 25 mg, 1, tablet, By Mouth, 2 times a day, for 90 days, This is an increase in dose., # 180 tablet,Refills 3, Tot. Refills 3, Hard Stop 10/21/21 16:17:00 EST, 10/26/20 16:17:00 EST, Route to Pharmacy Electronically, [facility]/pharmacy #[id number], 152, cm, 06/01... Start Date: 10/26/20 Stop Date: 10/21/21 Status: Ordered [employer] COVID-19 Vaccine 30 mcg/0.3 mL preservative-free intramuscular suspension 0.3 mL = 30 mcg, Intramuscular, Once, use our staff, # 0.3 mL, 0 Refills, Soft Stop, 05/04/21 14:12:00 EDT, Suspension, Partial fill upon patient request if the prescription is for a schedule II opioid drug. Start Date: 05/04/21 Status: Ordered raised toilt seat raised toilt [...] 100 mg oral tablet See Instructions, ASAD BURKETT DOS VECES AL JULIAN, # 60 tablet, 4 Refills, Maintenance, [facility] [id number], 152, cm, 11/06/20 10:17:00 EDT, Height, 81, [...]
--- OUTSIDE RECORDS SUMMARY | 2023-07-21 12:58 | XMS_ITS | Continuity of Care Document ---
Author Name Unknown Organization [facility] Address [address] [facility], [address] d Floor, [address] [place] [address]- Care Team Providers Care Auto Adjudication Specialist Name Role Phone Renato FAMILY EDUCATOR, Milton Loyola Primary Care Physicia n Encounter [facility] ACCT R [id number] Date(s): 04/03/22 - 05/10/22 [facility] [address], 3[address], [address] [place] [address]- Attending Physician: Todd Brush MD Admitting Physician: Todd Brush MD Allergies, Adverse Reactions, Alerts Substance Reaction [...] Patient Refuses 1Result Comment: NS DIL LOT [id number] EXP 11/2022 2Result Comment: DILUENT LOT#: [id number] EXP: 11/14 MFG: FRESENSIUS Medications albuterol 0.083% [...] release tablet See Instructions, ASAD BASHIR TABLETA CONSTANCEKal MARCOS MIRANDA, # 30 tablet, 11 Refills, 03/28/22 11:20:00 EDT, [facility]/pharmacy #[id number], 149.86, cm, 03/28/22 10:52:00 EDT, Height, 85.7, kg, 07/24/21 14:26:00 EST, Dry Weight Start Date: 03/28/22 Status: Ordered atorvastatin 10 mg oral tablet See Instructions, PJSole KRYSTEN TABLETA CONSTANCEKal MARCOS MIRANDA, # 30 tablet, 11 Refills, 03/28/22 11:20:00 EDT, [facility]/pharmacy #[id number], 149.86, cm, 03/28/22 10:52:00 EDT, Height, 85.7, kg, 07/24/21 14:26:00 EST, Dry Weight Start Date: 03/28/22 Status: Ordered BD Ultra-Fine pen needles, BERTRAM 4 mm x 32 G BD Ultra-Fine pen needles, BERTRAM 4 mm x 32 G, See Instructions, # 150 each, Refills 11, Tot. [id number], Maintenance, Use for times a days with [...] tablet, Refills 1, Route to Pharmacy Electronically, [facility] [address], 149.86, cm, 08/15/21 11:29:00 EST, Height, 85.7, [...] Refills 0, Tot. Refills 0, Maintenance, [employer] , 07/25/21 12:56:00 EST, Compound Start Date: 07/25/21 Status: Ordered diclofenac sodium 50 mg oral delayed release tablet 1 tablet = 50 mg, By Mouth, 2 times a day, with food Greenlandic label, # 60 tablet, 3 Refills, Maintenance, 07/24/21 15:01:00 EST, [facility]/pharmacy #[id number], Partial fill upon patient request if the prescription is for a schedule II opioid drug., 152, cm, 06/27... Start Date: 07/24/21 Stop Date: 11/21/21 Status: Ordered ergocalciferol 17158 iu oral capsule See Instructions, TOME 1 CAPSULA POR VIA ORAL ONCE WEEKLY, # 4 capsule, Refills 4, Instructions Replace Required Details, Route to Pharmacy Electronically, [facility] [id number], 149.86, cm, 08/15/21 11:29:00 EST, Height, 85.7, kg, 07/24/21 14:26:00 EST, Start Date: 09/24/21 Status: Ordered Escitalopram = 20 mg, By Mouth, Daily, 0 Refills, Maintenance, 05/13/19 15:46:32 EDT Start Date: 05/13/19 Status: Ordered Eucerin Plus topical lotion 1 application, Topically, 2 times a day, PRN for dry skin, # 600 mL, 1 Refills, Maintenance, 06/01/21 13:51:00 EDT, Lotion, [id number], Partial fill upon patient request if the [...] LAS COMIDAS, # 15 Unknown, 5 Refills, [facility] [address], 149.86, cm, 08/15/21 11:29:00 EST, Height, 85.7, kg, 07/24/21 14:26:00 EST, Dry Weight Start Date: 11/13/21 Status: Ordered Imitrex 50 mg oral tablet See Instructions, 1 tablet By Mouth at onset of headache. May repeat once in 2 hours. Not > 4/ week., # 9 tablet, 0 Refills, Maintenance, 01/03/20 13:01:00 EDT, [facility]/pharmacy #[id number], 152, cm, 11/01/19 19:28:00 EDT, [...] # 12 mL, 11 Refills, Hard Stop 09/21/23 12:17:00 EST, 09/26/22 12:17:00 EST, Solution, [facility]/pharmacy #[id number], 149.86, cm, 03/28/22 10:52:00 EDT, Height, 85.7, kg, 07/24/21 14:26:00 EST,... Start Date: 09/26/22 Stop Date: 09/21/23 Status: Ordered Lantus Solostar Pen 100 units/mL subcutaneous solution = 40 units, Subcutaneous Injection, Daily, for 30 days, DM E 11.9., # 12 mL, 11 Refills, Hard Stop 09/26/22 12:17:00 EST, 10/01/21 12:17:00 EST, Solution, [facility]/pharmacy #[id number], 152, cm, 05/04/21 13:50:00 EDT, Height, 85.2, kg, 04/18/21 13:24:00 EDT, Dry... Start Date: 10/01/21 Stop Date: 09/26/22 Status: Ordered loratadine 10 mg oral tablet See Instructions, TOME KRYSTEN TABLETA TODOS LOS MIRANDA, # 30 tablet, Refills 5, Tot. Refills 5, 03/28/2211:21:00 EDT, Instructions Replace Required Details, Route to Pharmacy Electronically, [facility]/pharmacy#[id number], 149.86, cm, 03/28/22 10:52:00 EDT, Height, 8... Start Date: 03/28/22 Status: Ordered meclizine 25 mg oral tablet 1 tablet = 25 mg, By Mouth, 3 times a day, PRN for dizziness, # 30 tablet, 0 Refills, Maintenance, 04/08/21 22:48:00 EDT, Tablet, [facility]/pharmacy #[id number], Partial fill upon patient request if the prescription is for a schedule II opioid drug., 152, cm, ... Start Date: 04/08/21 Status: Ordered Movatu COVID-19 Vaccine 30 mcg/0.3 mL preservative-free intramuscular [...] Replace Required Details, Route to Pharmacy Electronically, [id number]... Start Date: 03/28/22 Status: Ordered raised toilt seat raised toilt [...] JULIAN, # 60 tablet, 4 Refills, Maintenance, [facility] [id number], 152, cm, 11/06/20 10:17:00 EDT, Height, 81, [...] No; Type: Cigarettes entered on: 11/07/14 Sex Care Team Personnel Name: Milton Gross NP Address: [address] [place] [address]
--- OUTSIDE RECORDS SUMMARY | 2023-07-21 12:58 | XMS_ITS | Continuity of Care Document ---
Author Name Unknown Organization [facility] ter Address [address] [place] [address]- Care Team Providers Care Aix Administrator Name Role Phone Renato MORRISON, Milton Loyola Primary Care Physicia n Encounter [facility] Date(s): 11/13/21 - 01/17/[address] [address]- Attending Physician: Akhil Eastman MD Admitting Physician: Akhil Eastman MD Allergies, Adverse Reactions, [...] Patient Refuses 1Result Comment: NS DIL LOT [id number] EXP 11/2022 2Result Comment: DILUENT LOT#: [id number] EXP: 11/14 MFG: FRESENSIUS Medications albuterol 0.083% [...] release tablet See Instructions, ASAD BASHIR TABLETA TOManageSocialS [employer] MIRANDA, # 30 tablet, 11 Refills, [facility], 149.86, cm, 08/15/21 11:29:00 EST, Height, 85.7, kg, 07/24/21 14:26:00 EST, Dry Weight Start Date: 10/16/21 Status: Ordered atorvastatin 10 mg oral tablet See Instructions, ASAD BASHIR TABLETA TOManageSocialS [employer] MIRANDA, # 30 tablet, 5 Refills, [facility] [address], 149.86,cm, 08/15/21 11:29:00 EST, Height, 85.7, kg, 07/24/21 14:26:00 EST, Dry Weight Start Date: 10/29/21 Status: Ordered BD Ultra-Fine pen needles, BERTRAM 4 mm x 32 G BD Ultra-Fine pen needles, BERTRAM 4 mm x 32 G, See Instructions, # 150 each, Refills 11, Tot. [id number], Maintenance, Use for times a days with [...] tablet, Refills 1, Route to Pharmacy Electronically, [facility] [address], 149.86, cm, 08/15/21 11:29:00 EST, Height, 85.7, [...] Mouth, 2 times a day, with food Macedonian label, # 60 tablet, 3 Refills, Maintenance, 07/24/21 15:01:00 EST, [facility]/pharmacy #[id number], Partial fill upon patient request if the prescription is for a schedule II opioid drug., 152, cm, 06/27... Start Date: 07/24/21 Stop Date: 11/21/21 Status: Ordered ergocalciferol 39390 iu oral capsule See Instructions, TOME 1 CAPSULA POR VIA ORAL ONCE WEEKLY, # 4 capsule, Refills 4, Instructions Replace Required Details, Route to Pharmacy Electronically, [facility] [address], 149.86, cm, 08/15/21 11:29:00 EST, Height, 85.7, kg, 07/24/21 14:26:00 EST, Start Date: 09/24/21 Status: Ordered Escitalopram = 20 mg, By Mouth, Daily, 0 Refills, Maintenance, 05/13/19 15:46:32 EDT Start Date: 05/13/19 Status: Ordered Eucerin Plus topical lotion 1 application, Topically, 2 times a day, PRN for dry skin, # 600 mL, 1 Refills, Maintenance, 06/01/21 13:51:00 EDT, Lotion, [facility]/pharmacy #[id number], Partial fill upon patient request if the [...] LAS COMIDAS, # 15 Unknown, 5 Refills, [facility] [address], 149.86, cm, 08/15/21 11:29:00 EST, Height, 85.7, kg, 07/24/21 14:26:00 EST, Dry Weight Start Date: 11/13/21 Status: Ordered Imitrex 50 mg oral tablet See Instructions, 1 tablet By Mouth at onset of headache. May repeat once in 2 hours. Not > 4/ week., # 9 tablet, 0 Refills, Maintenance, 01/03/20 13:01:00 EDT, [facility]/pharmacy #[id number], 152, cm, 11/01/19 19:28:00 EDT, [...] 09/26/22 12:17:00 EST, 10/01/21 12:17:00 EST, Solution, [facility]/pharmacy #[id number], 152, cm, 05/04/21 13:50:00 EDT, Height, 85.2, kg, 04/18/21 13:24:00 EDT, Dry... Start Date: 10/01/21 Stop Date: 09/26/22 Status: Ordered loratadine 10 mg oral tablet See Instructions, ASAD MIRANDA, # 30 tablet, Refills 5, Instructions Replace Required Details, Route to Pharmacy Electronically, [facility] [address], 149.86, cm, 08/15/21 11:29:00 EST,Height, 85.7, kg, 07/24/21 14:26:00 EST, Dry Weight Start Date: 09/27/21 Status: Ordered meclizine 25 mg oral tablet 1 tablet = 25 mg, By Mouth, 3 times a day, PRN for dizziness, # 30 tablet, 0 Refills, Maintenance, 04/08/21 22:48:00 EDT, Tablet, [facility]/pharmacy #[id number], Partial fill upon patient request if the prescription is for a schedule II opioid drug., 152, cm, 03/... Start Date: 04/08/21 Status: Ordered wedgies COVID-19 Vaccine 30 mcg/0.3 mL preservative-free intramuscular [...] Replace Required Details, Route to Pharmacy Electronically, [id number], [id number], 149.86, cm, 12... Start Date: 10/15/21 Status: [...] oral tablet See Instructions, TOME KRYSTEN TABLETA LEZAMA AL JULIAN, # 60 tablet, 4 Refills, Maintenance, [facility] [id number], 152, cm, 11/06/20 10:17:00 EDT, Height, 81, [...]
--- OUTSIDE RECORDS SUMMARY | 2023-07-21 12:58 | XMS_ITS | Continuity of Care Document ---
Author Name Unknown Organization [facility] Address [address] [place] [address]- Care Team Providers Care Disability Rater Name Role Phone Renato MORRISON, Milton Loyola Primary Care Physicia n Encounter [facility] ACCT R [id number] Date(s): 09/08/20 - 10/08/20 [facility] [address] [place] [address]- Attending Physician: Jimenez Grant Admitting Physician: Jimenez Grant Referring Physician: AdmtrJimenez Allergies, Adverse Reactions, Alerts [...] 12:25:00 EST, Aerosol, Route to Pharmacy Electronically, [id number], [facility]/pharmacy #[id number], 152, cm, 06/01/20 9:54:00 EDT, [...] 10/27/20 12:21:00 EST, 10/06/20 12:21:00 EST, Cream, [facility]/pharmacy #[id number], 1 application Rectally 2 times a day,x7 days, 152, cm, 06/01/20 9:54:00 EDT, Height, 81, kg, ... Start Date: 10/06/20 Stop Date: 10/27/20 Status: Ordered aspirin 81 mg oral delayed release tablet 81 mg, 1, tablet, By Mouth, Daily, # 30 tablet, Refills 11, Tot. Refills 11, Maintenance, 10/06/20 12:25:00 EST, Route to Pharmacy Electronically, [facility]/pharmacy #[id number], 152, cm, 06/01/20 9:54:00 EDT, Height, 81, kg, 11/01/19 19:28:00 EDT, Dry Weight Start Date: 10/06/20 Status: Ordered BD Ultra-Fine pen needles, BERTRAM 4 mm x 32 G BD Ultra-Fine pen needles, BERTRAM 4 mm x 32 G, See Instructions, # 150 each, Refills 11, Tot. [id number], Maintenance, Use for times a days with [...] 11/28/20 10:24:00 EDT, Route to Pharmacy Electronically, [facility]/pharmacy #[id number], 152, cm, 06/01/20 9:54:00 EDT, Height, 81, kg, 10/31... Start Date: 11/28/20 Stop Date: 05/27/21 Status: Ordered Colace sodium 100 mg oral capsule 100 mg, 1, capsule, By Mouth, 2 times a day, PRN, for 30 days, # 60 capsule, Refills 5, Tot. Refills 5, Hard Stop 11/28/20 10:24:00 EDT, for constipation, 06/01/20 10:24:00 EDT, [id number], 152, cm, 06/01/20 9... Start Date: [...] 11 Refills, Maintenance, 10/06/20 12:22:00 EST, Lotion, [facility]/pharmacy #[id number], 1 application Topically 2 times [...] 11 Refills, Maintenance, 10/06/20 12:21:00 EST, Solution, [facility]/pharmacy #[id number], Partial fill upon patient request if the prescription is for a schedule II opio... Start Date: 10/06/20 Status: Ordered HumaLOG KwikPen 100 units/mL injectable solution = 15 units, Subcutaneous Infusion, 3 times a day before meals, Dx E11.9. D/C admelog same dose 15 units . give kwik pen, # 15 mL, 11 Refills, Maintenance, 10/06/20 12:20:00 EST, [facility]/pharmacy #[id number], 152, cm, 06/01/20 9:54:00 EDT, [...] 02/20/21 9:48:00 EDT, Route to Pharmacy Electronically, [facility]/pharmacy #[id number], 152, cm, 06/01/20 9:54:00 EDT, [...] 11/03/20 12:27:00 EST, 10/06/20 12:27:00 EST, Tablet, [facility]/pharmacy #[id number], Partial fill upon patient request [...] 10/26/20 16:17:00 EST, Route to Pharmacy Electronically, [facility]/pharmacy #[id number], 152, cm, 06/01... Start Date: 10/26/20 Stop Date: 10/21/21 Status: Ordered metoprolol 25 mg oral tablet 25 mg, 1, tablet, By Mouth, 2 times a day, for 90 days, This is an increase in dose., # 180 tablet,Refills 3, Tot. Refills 3, Hard Stop 10/26/20 16:17:00 EST, 11/01/19 16:17:00 EDT, Route to Pharmacy Electronically, [facility]/pharmacy #[id number], 152, cm, 10/22... Start Date: 11/01/19 Stop Date: 10/26/20 Status: Ordered mupirocin 2% topical ointment 1 application, Topically, 3 times a day, for 10 days, # 22 Gm, 1 Refills, Acute 10/26/20 12:24:00 EST, 10/06/20 12:24:00 EST, Ointment, [facility]/pharmacy #[id number], Partial fill upon patient request if the prescription is for a schedule II opioid drug., 1 appl... Start Date: 10/06/20 Stop Date: 10/26/20 Status: Ordered riboflavin 100 mg oral tablet 1 tablet = 100 mg, By Mouth, 2 times a day, # 60 tablet, 4 Refills, Maintenance, 10/06/20 12:25:00 EST, [facility]/pharmacy #[id number], 152, cm, 06/01/20 9:54:00 EDT, Height, 81, kg, 11/01/19 19:28:00 EDT, Dry Weight Start Date: 10/06/20 Stop Date: 03/05/21 Status: Ordered sulindac 150 mg oral tablet See Instructions, TOME KRYSTEN TABLETA POR VIA ORAL DOS VECES AL JULIAN CUANDO SEA NECESARIO, # 60 tablet,2 Refills, 06/01/20 10:19:00 EDT, [facility]/pharmacy #[id number], 152, cm, 06/01/20 9:54:00 EDT, Height, 81, kg, 11/01/19 19:28:00 EDT, Dry Weight Start Date: 06/01/20 Status: Ordered Vitamin D3 1000 intl units oral tablet 1 tablet = 1,000 International_Units, By Mouth, Daily, # 30 tablet, 11 Refills, Maintenance, 10/06/20 12:25:00 EST, Tablet, [facility]/pharmacy #[id number], 152, cm, 06/01/20 9:54:00 EDT, [...]
--- OUTSIDE RECORDS SUMMARY | 2023-07-21 12:59 | XMS_ITS | Continuity of Care Document ---
Author Name Unknown Organization [facility] Address Unknown Care Team Providers Care Casket Trimmer Name Role Phone Milton Gross NP Primary Care Physicia n [place] [facility] [place] 07/[place] 08/23/21 [facility] Attending Physician: Jimenez Grant Admitting Physician: Jimenez Grant Referring Physician: Jimenez Grant Allergies, Adverse Reactions, Alerts Substance Reaction Severity [...] Patient Refuses 1Result Comment: NS DIL LOT [id number] EXP 11/2022 2Result Comment: DILUENT LOT#: [id number] EXP: 11/14 MFG: FRESENSIUS Medications albuterol 0.083% [...] 12:25:00 EST, Aerosol, Route to Pharmacy Electronically, [id number], [facility]/pharmacy #[id number], 152, cm, 06/01/20 9:54:00 EDT, [...] 10/06/20 12:25:00 EST, Route to Pharmacy Electronically, [facility]/pharmacy #[id number], 152, cm, 06/01/20 9:54:00 EDT, Height, 81, kg, 11/01/19 19:28:00 EDT, Dry Weight Start Date: 10/06/20 Status: Ordered atorvastatin 10 mg oral tablet 1 tablet = 10 mg, By Mouth, Daily, # 30 tablet, 5 Refills, Maintenance, 05/05/21 11:03:00 EDT, [facility]/pharmacy #[id number], Partial fill upon patient request if the prescription is for a schedule II opioid drug., 152, cm, 04/18/21 13:24:00 EDT, Height, 85.2, k... Start Date: 05/05/21 Stop Date: 11/01/21 Status: Ordered BD Ultra-Fine pen needles, BERTRAM 4 mm x 32 G BD Ultra-Fine pen needles, BERTRAM 4 mm x 32 G, See Instructions, # 150 each, Refills 11, Tot. [id number], Maintenance, Use for times a days with [...] Mouth, 2 times a day, with food Luxembourger label, # 60 tablet, 3 Refills, Maintenance, 07/24/21 15:01:00 EST, [facility]/pharmacy #[id number], Partial fill upon patient request if the prescription is for a schedule II opioid drug., 152, cm, 06/27... Start Date: 07/24/21 Stop Date: 11/21/21 Status: Ordered ergocalciferol 94899 iu oral capsule 50,000 International_Units, 1, capsule, By Mouth, Every week, # 18 capsule, Refills 0, Tot. Refills0, Maintenance, 06/01/21 13:45:00 EDT, Route to Pharmacy Electronically, [facility]/pharmacy #[id number], Partial fill upon patient request if the prescription is f... Start Date: 06/01/21 Stop Date: 09/29/21 Status: Ordered Escitalopram = 20 mg, By Mouth, Daily, 0 Refills, Maintenance, 05/13/19 15:46:32 EDT Start Date: 05/13/19 Status: Ordered Eucerin Plus topical lotion 1 application, Topically, 2 times a day, PRN for dry skin, # 600 mL, 1 Refills, Maintenance, 06/01/21 13:51:00 EDT, Lotion, [facility]/pharmacy #[id number], Partial fill upon patient request [...] 11 Refills, Maintenance, 05/04/21 14:14:00 EDT, Solution, [id number], Partial fill upon patient request if the prescription is for a schedule II opio... Start Date: 05/04/21 Status: Ordered Imitrex 50 mg oral tablet See Instructions, 1 tablet By Mouth at onset of headache. May repeat once in 2 hours. Not > 4/ week., # 9 tablet, 0 Refills, Maintenance, 01/03/20 13:01:00 EDT, [facility]/pharmacy #[id number], 152, cm, 11/01/19 19:28:00 EDT, [...] 09/26/22 12:17:00 EST, 10/01/21 12:17:00 EST, Solution, [facility]/pharmacy #[id number], 152, cm, 05/04/21 13:50:00 EDT, Height, 85.2, kg, 04/18/21 13:24:00 EDT, Dry... Start Date: 10/01/21 Stop Date: 09/26/22 Status: Ordered loratadine 10 mg oral tablet See Instructions, ASAD BURKETT TODOS LOS MIRANDA, # 30 tablet, Refills 5, Maintenance, Instructions Replace Required Details, Route to Pharmacy Electronically, [id number], 152, cm, 11/06/20 10:17:00 EDT, Height, 81, kg, 11/01/19 19:28:00 EDT, DrBonilla.. Start Date: 04/03/21 Status: Ordered meclizine 25 mg oral tablet 1 tablet = 25 mg, By Mouth, 3 times a day, PRN for dizziness, # 30 tablet, 0 Refills, Maintenance, 04/08/21 22:48:00 EDT, Tablet, [facility]/pharmacy #[id number], Partial fill upon patient request [...] 10/26/20 16:17:00 EST, Route to Pharmacy Electronically, [facility]/pharmacy #[id number], 152, cm, 06/01... Start Date: 10/26/20 Stop Date: 10/21/21 Status: Ordered i-drive COVID-19 Vaccine 30 mcg/0.3 mL preservative-free intramuscular [...] JULIAN, # 60 tablet, 4 Refills, Maintenance, [facility] [id number], 152, cm, 11/06/20 10:17:00 EDT, Height, 81, kg, 11/01/19 19:28:00 EDT, Dry Weight Start Date: 03/07/21 Status: Ordered Problem List Condition Effective Dates Status Health Status Inform ant Annual physical exam(Confirmed) Active Asthma(Confirmed) Active Depression(Confirmed) Active Diabetes mellitus(Confirmed) Active Hypertension(Confirmed) Active Lactic acidosis(Confirmed) Active Meningioma(Confirmed) Active Obese class II(Confirmed) Active Obstructive sleep apnea(Confirmed) Active Social History Social History Type Response Smoking Status Never smoker; Tobacc o user in household: No; Type: Cigarettes entered on: 11/07/14 Sex
--- OUTSIDE RECORDS SUMMARY | 2023-07-21 12:59 | XMS_ITS | Continuity of Care Document ---
Author Name Unknown Organization [facility] Address [address] [place] [address]- Care Team Providers Care Coding Quality Coordinator Name Role Phone Milton Gross NP Primary Care Physicia n Encounter [facility] Date(s): 09/27/19 - 10/07/19 [facility] [address] [place] [address]- [facility] Attending Physician: trJimenez Allergies, Adverse Reactions, Alerts Substance Reaction Severity [...] 18:58:54 EDT, Aerosol, Route to Pharmacy Electronically, [id number], [facility]/pharmacy #[id number], Compound Start Date: 11/02/18 Status: Ordered Alcohol Wipes See Instructions, # 100 each, Refills 5, Tot. Refills 5, Maintenance, DM 250.02. Use before BS control and lantus, 05/18/19 9:28:17 EDT, Compound Start Date: 05/18/19 Status: Ordered aspirin 81 mg oral delayed release tablet 81 mg, 1, tablet, By Mouth, Daily, # 30 tablet, Refills 11, Tot. Refills 11, Maintenance, 11/02/18 18:58:53 EDT, Route to Pharmacy Electronically, [id number], [facility]/pharmacy #[id number] Start Date: 11/02/18 Status: Ordered BD Ultra-Fine pen needles, BERTRAM 4 mm x 32 G BD Ultra-Fine pen needles, BERTRAM 4 mm x 32 G, See Instructions, # 150 each, Refills 11, Tot. [id number], Maintenance, Use for times a days with [...] 11/02/18 18:58:54 EDT, Route to Pharmacy Electronically, [id number], [facility]/pharmacy #[id number] Start Date: 11/02/18 Stop Date: 05/01/19 [...] EDT, Compound Start Date: 05/18/19 Status: Ordered HumaLOG KwikPen 100 units/mL injectable solution = 15 units, Subcutaneous Infusion, 3 times a day before meals, Dx E11.9. Can give admelog same dose15 units [address] place of humalog, # 15 mL, 11 Refills, Maintenance, 10/05/19 9:40:00 EST, [facility]/pharmacy #[id number], 152, cm, 05/18/19 9:07:00 EDT, Height Start Date: 10/05/19 Stop Date: 09/29/20 Status: Ordered Imitrex 50 mg oral tablet See Instructions, 1 tablet By Mouth at onset of headache. May repeat once in 2 hours. Not > 4/ week., # 9 tablet, 0 Refills, Maintenance, 01/02/18 14:23:40 EDT Start Date: 01/02/18 Status: Ordered Insulin Syringe, BD Ultra-Fine 0.3 [...] Date: 10/28/19 Stop Date: 10/22/20 Status: Ordered Meclizine By Mouth, 3 times a day, 0 Refills, Maintenance, 05/13/19 15:48:17 EDT Start Date: 05/13/19 Status: Ordered metoprolol 25 mg oral tablet 25 mg, 1, tablet, By Mouth, 2 times a day, Refills 0, Maintenance, 05/13/19 15:48:07 EDT Start Date: 05/13/19 Status: Ordered metoprolol 25 mg oral tablet 12.5 mg, 0.5, tablet, By Mouth, Daily, # 45 tablet, Refills 3, Tot. Refills 3, Maintenance, 05/18/19 9:27:02 EDT, Route to Pharmacy Electronically, [id number], [facility]/pharmacy #[id number] Start Date: 05/18/19 Stop Date: 05/12/20 Status: Ordered riboflavin 100 mg oral tablet 1 tablet = 100 mg, By Mouth, Daily in AM, # 30 tablet, 4 Refills, Maintenance, 01/02/18 14:22:46 EDT Start Date: 01/02/18 Stop Date: 06/01/18 Status: Ordered sulindac 150 mg oral tablet 1 tablet = 150 mg, By Mouth, 2 times a day, PRN for pain, # 60 tablet, 2 Refills, Maintenance, 05/23/19 19:31:34 EDT, Tablet Start Date: 05/23/19 Stop Date: 08/21/19 Status: Ordered Vitamin D3 1000 intl units [...]
--- OUTSIDE RECORDS SUMMARY | 2023-07-21 12:59 | XMS_ITS | Continuity of Care Document ---
Author Name Unknown Organization [facility] Address [address] [place] [address]- Care Team Providers Care Drug Abuse Social Worker Name Role Phone Rentao MORRISON, Milton Loyola Primary Care Physicia n Encounter [facility] Date(s): 12/02/22 - 01/29/[address] [address]- Attending Physician: Hemant Delgado MD Admitting Physician: Hemant Delgado MD Allergies, Adverse Reactions, Alerts Substance Reaction Severity Status traMADol tongue numbness--but she fell near loc Active Immunizations Given and Recorded Vaccine Date Status Refusal Reason [id number] bivalent booster vax 07/17/22 Given influenza virus [...] Patient Refuses 1Result Comment: NS DIL LOT [id number] EXP 11/2022 2Result Comment: DILUENT LOT#: [id number] EXP: 11/14 MFG: FRESENSIUS Medications albuterol 0.083% [...] = 5 mg, By Mouth, Daily, by [facility] records. Follow speciality, # 30 tablet, 2 Refills, Maintenance, 03/06/23 16:52:00 EDT, Tablet, [id number], Partial fill upon patient request if theprescription is for a schedule II opioid drug., 145... Start Date: 03/06/23 Stop Date: 06/04/23 Status: Ordered apixaban 5 mg oral tablet 1 tablet = 5 mg, By Mouth, Daily, for 30 days, by [facility] records, # 30 tablet, 2 Refills, Hard Stop 03/06/23 16:52:00 EDT, 12/06/22 16:52:00 EDT, Tablet, [id number], Partial fill upon patient request if the prescription is for a schedule II opi... Start Date: 12/06/22 Stop Date: 03/06/23 Status: Ordered Aspirin Low Dose 81 mg oral delayed release tablet See Instructions, ASAD BURKETT TODOS [place]IRANDA by [facility] records continue, # 30 tablet, 11 Refills, 07/04/22 11:40:00 EST, [id number], 149.8, cm, 07/04/22 11:20:00 EST, Height, 83.3, kg, 06/14/22 18:50:00 EDT, Dry Weight Start Date: 07/04/22 Status: Ordered atorvastatin 10 mg oral tablet See Instructions, ASAD SHAWA TOS [place], # 30 tablet, 11 Refills, 05/24/22 14:42:00 EDT, [id number], 149.86, cm, 05/24/22 13:53:00 EDT, Height, 85.7, kg, 07/24/21 14:26:00 EST, Dry Weight Start Date: 05/24/22 Status: Ordered BD Ultra-Fine pen needles, BERTRAM 4 mm x 32 G BD Ultra-Fine pen needles, BERTRAM 4 mm x 32 G, See Instructions, # 150 each, Refills 11, Tot. [id number], Maintenance, Use for times a days with [...] Compound Start Date: 07/25/21 Status: Ordered ergocalciferol 63063 iu oral capsule 1, capsule, By Mouth, Every week, # 4 capsule, Refills 4, Maintenance, 10/22/22 15:42:00 EST, Rout[facility] Pharmacy Electronically, [id number], 149.8, cm, 07/22/22 9:38:00 EST, Height, 83.3, kg, 06/14/22 18:50:00 EDT, Dry Weight Start Date: 10/22/22 Status: Ordered Escitalopram = 20 mg, By Mouth, Daily, 0 Refills, Maintenance, 05/13/19 15:46:32 EDT Start Date: 05/13/19 Status: Ordered Eucerin Plus topical lotion 1 application, Topically, 2 times a day, PRN for dry skin, # 600 mL, 11 Refills, Maintenance, 01/17/23 13:42:00 EDT, Lotion, [facility]/pharmacy #[id number], Partial fill upon patient request if the prescription is for a schedule II opioid drug., 1 application Top... Start Date: 01/17/23 Stop Date: 01/12/24 Status: Ordered Eucerin Plus topical lotion 1 application, Topically, 2 times a day, PRN for dry skin, # 600 mL, 1 Refills, Maintenance, 05/24/22 14:28:00 EDT, Lotion, [facility]/pharmacy #[id number], Partial fill upon patient [...] sites. stop novolog due insurance issues. in slovenian, # 15 mL, 11 Refills, Hard Stop 08/07/23 12:49:00 EST, 08/12/22 12:49:00 EST,... Start Date: 08/12/22 Stop Date: 08/07/23 Status: Ordered Insulin Lispro Scot KwikPen 100 units/mL injectable solution = 15 units, Subcutaneous Infusion, 3 times a day before meals, with breakfast and lunch rotate injection sites. stop novolog due insurance issues. in slovenian, # 15 mL, 11 Refills, Maintenance, 08/07/23 12:49:00 EST, [id number], Partial fill... Start Date: 08/07/23 Stop [...] 09/10/25 12:17:00 EST, 09/15/24 12:17:00 EST, Solution, [id number], 149.8, cm, 07/22/22 9:38:00 EST, Height, 83.3, kg, 06/14/22 18:50:00 EDT, Start Date: 09/15/24 Stop Date: 09/10/25 Status: Ordered loratadine 10 mg oral tablet See Instructions, ASAD SHAWA TODOS [place], # 30 tablet, Refills 5, Tot. Refills 5, 05/24/2214:42:00 EDT, Instructions Replace Required Details, Route to Pharmacy Electronically, [facility]/pharmacy#[id number], 149.86, cm, 05/24/22 13:53:00 EDT, Height, 8... Start Date: 05/24/22 Status: Ordered meclizine 25 mg oral tablet 1 tablet = 25 mg, By Mouth, 3 times a day, PRN for dizziness, # 30 tablet, 0 Refills, Maintenance, 05/31/22 13:26:00 EDT, [id number] Partial fill upon patient request if [...] 05/31/22 13:26:00 EDT, Route to Pharm[facility] Electronically, [id number] 149.86, cm, 10... Start Date: 05/31/22 [...] Replace Required Details, Route to Pharmacy Electronically, [id number]... Start Date: 01/17/23 Status: Ordered Pulse Oximeter [...] JULIAN, # 60 tablet, 4 Refills, Maintenance, [id number], 152, cm, 11/06/20 10:17:00 EDT, Height, 81, kg, 11/01/19 19:28:00 EDT, Dry Weight Start Date: 03/07/21 Status: Ordered Zithromax 250 mg oral tablet 1 pack/packet, By Mouth, Once, # 6 tablet, 0 Refills, Soft Stop, 01/05/23 23:08:00 EDT, Tablet, [facility]/pharmacy #[id number], Partial fill upon patient request if the [...] 100 in lifetime) entered on: 01/29/23 Sex Patient Care team information Care Team Personnel Name: Jesika Hua RN Position: S RN Member Role: Primary Care Nurse Name: Milton Gross NP Position: [facility] Associate Professional Member Role: PCP Address: Address: [address] [place] [address]- Care Team Related Persons Name: YASMIN FISHER Address: home [address] [place] [address]
--- OUTSIDE RECORDS SUMMARY | 2023-07-21 12:59 | XMS_ITS | Continuity of Care Document ---
Author Name Unknown Organization [facility] Address [address] [place] [address]- Care Team Providers Care Equal Opportunity Director Name Role Phone Renato MORRISON, Milton Loyola Primary Care Physicia n [facility] [id number] Date(s): 04/18/21 - 04/25/21 [facility] [address] [address]- Attending Physician: Bouchra Nichole NP Admitting Physician: Bouchra Nichole NP Referring Physician: Milton Gross NP Allergies, Adverse [...] 12:25:00 EST, Aerosol, Route to Pharmacy Electronically, [id number], [facility]/pharmacy #[id number], 152, cm, [...] tablet, 5 Refills, Maintenance, 11/06/20 11:03:00 EDT, [facility]/pharmacy #[id number], Partial fill [...] 0 Refills, Maintenance, 12/14/20 11:40:00 EDT, Tablet, [facility]/pharmacy #[id number], Partial fill upon patient request if the prescription is for a schedule II opioid drug., 152, cm,... Start Date: 12/14/20 Stop Date: 12/28/20 Status: Ordered BD Ultra-Fine pen needles, BERTRAM 4 mm x 32 G BD Ultra-Fine pen needles, BERTRAM 4 mm x 32 G, See Instructions, # 150 each, Refills 11, Tot. [id number], Maintenance, Use for times a days with insulin. DM E119, 10/06/20 12:18:00 EST, Compound, 152, cm, 06/01/20 9:54:00 EDT, Height, 81, kg, 11/01/19 1... Start Date: 10/06/20 Status: Ordered BENGAY Arthritis topical cream See Instructions, rub into areas of pain and muscle tightness; instructions in Liberian, # 1 each, 2Refills, Maintenance, 12/14/20 11:39:00 EDT, [facility]/pharmacy #[id number], Partial fill [...] 0, Tot. Refills 0, Maintenance, AutoCPAP - 20, 04/18/21 14:37:00 EDT, Compound Start Date: 04/18/21 Status: Ordered Escitalopram By Mouth, Daily, 0 [...] mL, 11 Refills, Maintenance, 10/06/20 12:20:00 EST, [id number], 152, cm, 06/01/20 9:54:00 [...] 10 mg oral tablet See Instructions, ASAD LOPES [place] MIRANDA, # 30 tablet, Refills 5, Maintenance, Instructions Replace Required Details, Route to Pharmacy Electronically, [id number], 152, cm, 11/06/20 10:17:00 EDT, Height, 81, kg, 11/01/19 19:28:00 EDT, . Start Date: 04/03/21 Status: Ordered meclizine 25 mg oral tablet See Instructions, TOME KRYSTEN TABLETA POR VIA ORAL GIBRAN VECES AL JULIAN CUANDO SEA NECESARIO DIZZINESS, #50 tablet, 1 Refills, Acute, [id number], 152, cm, 11/06/20 10:17:00 EDT, Height, 81, kg, 11/01/19 19:28:00 EDT, Dry Weight Start Date: 12/07/20 Status: Ordered meclizine 25 mg oral tablet 1 tablet = 25 mg, By Mouth, 3 times a day, PRN for dizziness, # 30 tablet, 0 Refills, Maintenance, 04/08/21 22:48:00 EDT, Tablet, [facility]/pharmacy #[id number], Partial [...] Date: 10/26/20 Stop Date: 10/21/21 Status: Ordered sulindac 200 mg oral tablet 1 tablet = 200 mg, By Mouth, 2 times a day, # 60 tablet, 2 Refills, Maintenance, 12/14/20 11:44:00 EDT, Tablet, [facility]/pharmacy #[id number], Partial fill upon patient request if the prescription is for a schedule II opioid drug., 152, cm, 11/06/20 10:17:00 EDT... Start Date: 12/14/20 Status: Ordered Vitamin B2 100 mg oral tablet See Instructions, TOME KRYSTEN TABLETA DOS VECES AL JULIAN, # 60 tablet, 4 Refills, Maintenance, [facility] [id number], 152, cm, 11/06/20 10:17:00 EDT, Height, 81, kg, 11/01/19 19:28:00 EDT, Dry Weight Start Date: 03/07/21 Status: Ordered Vitamin D3 1000 intl units [...] Active Meningioma(Confirmed) Active Obstructive sleep apnea(Confirmed) Active Vital Signs Most recent to oldest [Reference Range]: 1 Height 152 cm (04/18/21 1:24 PM) Weight 85.2 kg (04/18/21 1:24 PM) Oxygen Saturation [94-100 %] 95 % (04/18/21 1:24 PM) Pulse Rate [55-90 bpm] 83 bpm (04/18/21 1:24 PM) Body Mass Index [18.5-24.99] 36.88 *>HHI* (04/18/21 1:24 PM) Blood Pressure [90-138/55-84 mm Hg] 135/ 81mm Hg (04/18/21 1:24 PM) Temperature [96.8-100.4 DegF] 97.2 DegF (04/18/21 1:24 PM) Mode of Delivery (Oxygen) Room air (04/18/21 1:24 PM) Blood pressure sites Arm, left (04/18/21 1:24 PM) Temperature Route Temporal (04/18/21 1:24 PM) Dry Weight 85.2 kg (04/18/21 1:24 PM) Social History Social History Type Response Smoking Status Never smoker; Tobacc o user in household: No; Type: Cigarettes entered on: 11/07/14 Sex
--- OUTSIDE RECORDS SUMMARY | 2023-07-21 12:59 | XMS_ITS | Continuity of Care Document ---
Author Name Unknown Organization [facility] Address [address] [place] [address]- Care Team Providers Care Manufacturing Specialist Name Role Phone Renato MORRISON, Milotn Loyola Primary Care Physicia n Encounter [facility] ACCT R [id number] Date(s): 01/29/23 - 02/28/23 [facility] [address] [place] [address]- Attending Physician: Jimenez Grant Admitting Physician: AdmtrJimenez Referring Physician: AdmtrJimenez Allergies, Adverse Reactions, Alerts Substance Reaction Severity Status traMADol tongue numbness--but she fell near loc Active Immunizations Given and Recorded Vaccine Date Status Refusal Reason [id number] bivalent booster vax 07/17/22 Given influenza virus [...] Patient Refuses 1Result Comment: NS DIL LOT [id number] EXP 11/2022 2Result Comment: DILUENT LOT#: [id number] EXP: 11/14 MFG: FRESENSIUS Medications albuterol 0.083% [...] = 5 mg, By Mouth, Daily, by [facility] records. Follow speciality, # 30 tablet, 2 Refills, Maintenance, 03/06/23 16:52:00 EDT, Tablet, [id number], Partial fill upon patient request if theprescription is for a schedule II opioid drug., 145... Start Date: 03/06/23 Stop Date: 06/04/23 Status: Ordered apixaban 5 mg oral tablet 1 tablet = 5 mg, By Mouth, Daily, for 30 days, by [facility] records, # 30 tablet, 2 Refills, Hard Stop 03/06/23 16:52:00 EDT, 12/06/22 16:52:00 EDT, Tablet, [id number], Partial fill upon patient request if the prescription is for a schedule II opi... Start Date: 12/06/22 Stop Date: 03/06/23 Status: Ordered Aspirin Low Dose 81 mg oral delayed release tablet See Instructions, ASAD BURKETT TODOS [place] MIRANDA by [facility] records continue, # 30 tablet, 11 Refills, [...] Instructions, # 150 each, Refills 11, Tot. [id number], Maintenance, Use for times a days with [...] Compound Start Date: 07/25/21 Status: Ordered ergocalciferol 22946 iu oral capsule 1, capsule, By Mouth, Every week, # 4 capsule, Refills 4, Maintenance, 10/22/22 15:42:00 EST, Routeto Pharmacy Electronically, [id number], 149.8, cm, 07/22/22 9:38:00 EST, Height, 83.3, kg, 06/14/22 18:50:00 EDT, Dry Weight Start Date: 10/22/22 Status: Ordered Escitalopram = 20 mg, By Mouth, Daily, 0 Refills, Maintenance, 05/13/19 15:46:32 EDT Start Date: 05/13/19 Status: Ordered Eucerin Plus topical lotion 1 application, Topically, 2 times a day, PRN for dry skin, # 600 mL, 11 Refills, Maintenance, 01/17/23 13:42:00 EDT, Lotion, [facility]/pharmacy #[id number], Partial fill upon patient request if the prescription is for a schedule II opioid drug., 1 application Top... Start Date: 01/17/23 Stop Date: 01/12/24 Status: Ordered Eucerin Plus topical lotion 1 application, Topically, 2 times a day, PRN for dry skin, # 600 mL, 1 Refills, Maintenance, 05/24/22 14:28:00 EDT, Lotion, [facility]/pharmacy #[id number], Partial fill upon patient [...] sites. stop novolog due insurance issues. in somali, # 15 mL, 11 Refills, Hard Stop 08/07/23 12:49:00 EST, 08/12/22 12:49:00 EST,... Start Date: 08/12/22 Stop Date: 08/07/23 Status: Ordered Insulin Lispro Scot KwikPen 100 units/mL injectable solution = 15 units, Subcutaneous Infusion, 3 times a day before meals, with breakfast and lunch rotate injection sites. stop novolog due insurance issues. in somali, # 15 mL, 11 Refills, Maintenance, 08/07/23 [...] Replace Required Details, Route to Pharmacy Electronically, [facility]/pharmacy#[id number], 149.86, cm, 05/24/22 13:53:00 EDT, Height, 8... Start Date: 05/24/22 Status: Ordered meclizine 25 mg oral tablet 1 tablet = 25 mg, By Mouth, 3 times a day, PRN for dizziness, # 30 tablet, 0 Refills, Maintenance, 05/31/22 13:26:00 EDT, Tablet, [facility]/pharmacy #[id number], Partial fill upon patient [...] 05/31/22 13:26:00 EDT, Route to Pharmacy Electronically, [facility]/pharmacy #[id number], 149.86, cm, 10... Start [...] Replace Required Details, Route to Pharmacy Electronically, [id number]... Start Date: 01/17/23 Status: Ordered Pulse Oximeter [...] JULIAN, # 60 tablet, 4 Refills, Maintenance, [facility] [id number], 152, cm, 11/06/20 10:17:00 EDT, Height, 81, kg, 11/01/19 19:28:00 EDT, Dry Weight Start Date: 03/07/21 Status: Ordered Zithromax 250 mg oral tablet 1 pack/packet, By Mouth, Once, # 6 tablet, 0 Refills, Soft Stop, 01/05/23 23:08:00 EDT, Tablet, [facility]/pharmacy #[id number], Partial fill upon patient request if the [...] Care Nurse Name: Milton Gross NP Position: [facility] Associate Professional Member Role: PCP Address: Address: [address] [place] [address]- Care Team Related Persons Name: YASMIN FISHER Address: home [address] [place] [address]
--- OUTSIDE RECORDS SUMMARY | 2023-07-21 12:59 | XMS_ITS | Continuity of Care Document ---
Author Name Unknown Organization [facility] ter Address [address] [place] [id number]- Care Team Providers Care Compliance Nurse Name Role Phone Renato MORRISON, Milton Loyola Primary Care Physicia n Encounter [facility] Date(s): 05/31/22 - 07/26/[address] [address] Attending Physician: Milton Gross NP Admitting Physician: Milton Gross NP Referring Physician: Milton Gross NP Allergies, Adverse Reactions, Alerts Substance Reaction Severity Status traMADol tongue numbness--but she fell near loc Active Immunizations Given and Recorded Vaccine Date Status Refusal Reason [id number] bivalent booster vax 07/17/22 Given influenza virus [...] Patient Refuses 1Result Comment: NS DIL LOT [id number] EXP 11/2022 2Result Comment: DILUENT LOT#: [id number] EXP: 11/14 MFG: FRESENSIUS Medications acetaminophen 325 mg oral capsule 1 capsule = 325 mg, By Mouth, Every 4 hours, PRN as needed for fever, not to exceed 4000 mg/day Print in Ugandan, # 90 capsule, 1 Refills, Acute 09/20/22 11:47:00 EST, 07/17/22 11:47:00 EST, Capsule,[facility]/pharmacy #[id number], Partial fill upon patient requ... Start Date: 07/17/22 Stop Date: 09/20/22 Status: Ordered albuterol 0.083% inhalation solution 3 [...] = 5 mg, By Mouth, Daily, by [employer] records, # 30 tablet, 3 Refills, Maintenance, 07/04/22 11:38:00 EST, Tablet, [facility]/pharmacy #[id number], Partial fill upon patient request if the prescription is for a schedule II opioid drug., 149.8, cm, 07/04/22 11... Start Date: 07/04/22 Stop Date: 11/01/22 Status: Ordered Aspirin Low Dose 81 mg oral delayed release tablet See Instructions, ASAD BURKETT TODOS [place] MIRANDA by [employer] records continue, # 30 tablet, 11 Refills, 07/04/22 11:40:00 EST, [id number], 149.8, cm, 07/04/22 11:20:00 EST, Height, 83.3, kg, 06/14/22 18:50:00 EDT, Dry Weight Start Date: 07/04/22 Status: Ordered atorvastatin 10 mg oral tablet See Instructions, TOME KRYSTEN TABLETA TOGARCES, # 30 tablet, 11 Refills, 05/24/22 14:42:00 EDT, [id number], 149.86, cm, 05/24/22 13:53:00 EDT, Height, 85.7, kg, 07/24/21 14:26:00 EST, Dry Weight Start Date: 05/24/22 Status: Ordered BD Ultra-Fine pen needles, BERTRAM 4 mm x 32 G BD Ultra-Fine pen needles, BERTRAM 4 mm x 32 G, See Instructions, # 150 each, Refills 11, Tot. [id number], Maintenance, Use for times a days with [...] Compound Start Date: 07/25/21 Status: Ordered ergocalciferol 83800 iu oral capsule See Instructions, TOME 1 CAPSULA POR VIA ORAL ONCE WEEKLY, # 4 capsule, Refills 4, Tot. Refills 4, 05/24/22 14:29:00 EDT, Instructions Replace Required Details, Route to Pharmacy Electronically, [facility]/pharmacy #[id number], 149.86, cm, 05/24/22 13:53:00 EDT, H... Start Date: 05/24/22 Status: Ordered Escitalopram = 20 mg, By Mouth, Daily, 0 Refills, Maintenance, 05/13/19 15:46:32 EDT Start Date: 05/13/19 Status: Ordered Eucerin Plus topical lotion 1 application, Topically, 2 times a day, PRN for dry skin, # 600 mL, 1 Refills, Maintenance, 05/24/22 14:28:00 EDT, Lotion, [facility]/pharmacy #[id number], Partial fill upon patient request if [...] 15 Unknown, 5 Refills, 05/24/22 14:29:00 EDT, [facility]/pharmacy #[id number], 149.86, cm, 05/24/22 13:53:00 EDT, Height, 85.7, kg, 07/24/21 14:26:00 EST, Dry Weight Start Date: 05/24/22 Status: Ordered Imitrex 50 mg oral tablet See Instructions, 1 tablet By Mouth at onset of headache. May repeat once in 2 hours. Not > 4/ week., # 9 tablet, 0 Refills, Maintenance, 01/03/20 13:01:00 EDT, [facility]/pharmacy #[id number], 152, cm, 11/01/19 19:28:00 EDT, Height, [...] 09/15/24 12:17:00 EST, 09/21/23 12:17:00 EST, Solution, [facility]/pharmacy #[id number], 149.86, cm, 05/24/22 13:53:00 EDT, Height, 85.7, kg, 07/24/21 14:26:00 EST,... Start Date: 09/21/23 Stop Date: 09/15/24 Status: Ordered loratadine 10 mg oral tablet See Instructions, ASAD BURKETT TOLOMAS MIRANDA, # 30 tablet, Refills 5, Tot. Refills 5, 05/24/2214:42:00 EDT, Instructions Replace Required Details, Route to Pharmacy Electronically, [facility]/pharmacy#[id number], 149.86, cm, 05/24/22 13:53:00 EDT, Height, 8... Start Date: 05/24/22 Status: Ordered meclizine 25 mg oral tablet 1 tablet = 25 mg, By Mouth, 3 times a day, PRN for dizziness, # 30 tablet, 0 Refills, Maintenance, 05/31/22 13:26:00 EDT, Tablet, [facility]/pharmacy #[id number], Partial fill upon patient request if [...] 05/31/22 13:26:00 EDT, Route to Pharmacy Electronically, [facility]/pharmacy #[id number], 149.86, cm, 10... Start Date: 05/31/22 [...] Replace Required Details, Route to Pharmacy Electronically, [id number]... Start Date: 03/28/22 Status: Ordered Pulse Oximeter [...] JULIAN, # 60 tablet, 4 Refills, Maintenance, [facility] [id number], 152, cm, 11/06/20 10:17:00 EDT, Height, 81, [...] Confirmed Active Obstructive sleep apnea Confirmed Active Social History Social History Type Response Smoking Status Never (less than 100 in lifetime) entered on: 06/14/22 Sex Patient Care team information Care Team Personnel Name: Jesika Hua RN Position: S RN Member Role: Primary Care Nurse Name: Milton Gross NP Position: [facility]O Associate Professional Member Role: PCP Address: Address: [address] Care Team Related Persons Name: YASMIN FISHER Address: home [address] [address]
--- OUTSIDE RECORDS SUMMARY | 2023-07-21 12:59 | XMS_ITS | Continuity of Care Document ---
Author Name Unknown Organization [facility] Address [address] [place] [address]- Care Team Providers Care Diesel Dinkey Operator Name Role Phone Renato MORRISON, Milton Loyola Primary Care Physicia n Encounter [facility] [place] Date(s): 10/06/20 - 11/05/[address] [address]- Allergies, Adverse Reactions, Alerts Substance Reaction Severity [...] 12:25:00 EST, Aerosol, Route to Pharmacy Electronically, [id number], [facility]/pharmacy #[id number], 152, cm, 06/01/20 9:54:00 [...] 10/06/20 12:25:00 EST, Route to Pharmacy Electronically, [facility]/pharmacy #[id number], 152, cm, 06/01/20 9:54:00 EDT, Height, 81, kg, 11/01/19 19:28:00 EDT, Dry Weight Start Date: 10/06/20 Status: Ordered BD Ultra-Fine pen needles, BERTRAM 4 mm x 32 G BD Ultra-Fine pen needles, BERTRAM 4 mm x 32 G, See Instructions, # 150 each, Refills 11, Tot. [id number], Maintenance, Use for times a days with [...] 11/28/20 10:24:00 EDT, Route to Pharmacy Electronically, [facility]/pharmacy #[id number], 152, cm, 06/01/20 9:54:00 EDT, Height, 81, kg, 10/31... Start Date: 11/28/20 Stop Date: 05/27/21 Status: Ordered Colace sodium 100 mg oral capsule 100 mg, 1, capsule, By Mouth, 2 times a day, PRN, for 30 days, # 60 capsule, Refills 5, Tot. Refills 5, Hard Stop 11/28/20 10:24:00 EDT, for constipation, 06/01/20 10:24:00 EDT, Route to Pharmacy Electronically, [facility]/pharmacy #[id number], 152, cm, 06/01/20 9... Start Date: [...] 11 Refills, Maintenance, 10/06/20 12:22:00 EST, Lotion, [facility]/pharmacy #[id number], 1 application Topically 2 [...] 11 Refills, Maintenance, 10/06/20 12:21:00 EST, Solution, [id number], Partial fill upon patient [...] week., # 9 tablet, 0 Refills, Maintenance, 05/11/20 13:01:00 EDT, [facility]/pharmacy #[id number], 152, cm, 11/01/19 19:28:00 [...] 10/01/21 12:17:00 EST, 10/06/20 12:17:00 EST, Solution, [facility]/pharmacy #[id number], 152, cm, 06/01/20 9:54:00 EDT, Height, 81, kg, 11/01/19 19:28:00 EDT, Dry We... Start Date: 10/06/20 Stop Date: 10/01/21 Status: Ordered loratadine 10 mg oral tablet 10 mg, 1, tablet, By Mouth, Daily, # 30 tablet, Refills 5, Tot. Refills 5, Maintenance, 02/20/21 9:48:00 EDT, Route to Pharmacy Electronically, [facility]/pharmacy #[id number], 152, cm, 06/01/20 9:54:00 [...] cm, 06/01/20 9:54:00 EDT, Height, 81, kg, 030... Start Date: 08/24/20 Stop Date: 02/20/21 Status: Ordered metoprolol 25 mg oral tablet 25 mg, 1, tablet, By Mouth, 2 times a day, for 90 days, This is an increase in dose., # 180 tablet,Refills 3, Tot. Refills 3, Hard Stop 10/21/21 16:17:00 EST, 10/26/20 16:17:00 EST, Route to Pharmacy Electronically, [facility]/pharmacy #[id number], 152, cm, 06/01... Start Date: 10/26/20 Stop Date: 10/21/21 Status: Ordered mupirocin 2% topical ointment 1 application, Topically, 3 times a day, for 10 days, # 22 Gm, 1 Refills, Acute 11/15/20 12:24:00 EDT, 10/26/20 12:24:00 EST, [facility]ment, [id number] Partial fill upon patient request if the prescription is for a schedule II opioid drug., 1 appl... Start Date: 10/26/20 Stop Date: 11/15/20 Status: Ordered riboflavin 100 mg oral tablet 1 tablet = 100 mg, By Mouth, 2 times a day, # 60 tablet, 4 Refills, Maintenance, 10/06/20 12:25:00 EST, [facility]/pharmacy #[id number], 152, cm, 06/01/20 9:54:00 EDT, Height, 81, kg, 11/01/19 19:28:00 EDT, Dry Weight Start Date: 10/06/20 Stop Date: 03/05/21 Status: Ordered sulindac 150 mg oral tablet See Instructions, TOME KRYSTEN TABLETA POR VIA ORAL DOS VECES AL JULIAN CUANDO SEA NECESARIO, # 60 tablet,2 Refills, 10/13/20 17:28:00 EST, [facility]/pharmacy #[id number], 152, cm, 06/01/20 9:54:00 EDT, Height, 81, kg, 11/01/19 19:28:00 EDT, Dry Weight Start Date: 10/13/20 Status: Ordered Vitamin D3 1000 intl units oral tablet 1 tablet = 1,000 International_Units, By Mouth, Daily, # 30 tablet, 11 Refills, Maintenance, 10/06/20 12:25:00 EST, Tablet, [facility]/pharmacy #[id number], 152, cm, 06/01/20 9:54:00 [...]
--- OUTSIDE RECORDS SUMMARY | 2023-07-21 12:59 | XMS_ITS | Continuity of Care Document ---
Author Name Unknown Organization [facility] Address [address] [facility], [address] Floor, [address] [place] [address]- Care Team Providers Care Financial Advisor Trainee Name Role Phone Renato MORRISON, Milton Loyola Primary Care Physicia n Encounter [facility] Date(s): 10/22/19 - 01/30/20 [facility] [address], [address], [address] [place] [address]- [facility] Attending Physician: Jenny Silva MD Admitting Physician: Jenny Silva MD Allergies, Adverse Reactions, Alerts Substance Reaction [...] 18:58:54 EDT, Aerosol, Route to Pharmacy Electronically, [id number], [facility]/pharmacy #[id number], Compound Start Date: 11/02/18 Status: Ordered [...] 11/02/18 18:58:53 EDT, Route to Pharmacy Electronically, [id number], [facility]/pharmacy #[id number] Start Date: 11/02/18 Status: Ordered BD Ultra-Fine pen needles, BERTRAM 4 mm x 32 G BD Ultra-Fine pen needles, BERTRAM 4 mm x 32 G, See Instructions, # 150 each, Refills 11, Tot. [id number], Maintenance, Use for times a days with [...] 11/02/18 18:58:54 EDT, Route to Pharmacy Electronically, [id number], [facility]/pharmacy #[id number] Start Date: 11/02/18 Stop Date: 05/01/19 [...] tablet, 0 Refills, Maintenance, 01/03/20 13:01:00 EDT, [facility]/pharmacy #[id number], 152, cm, 11/01/19 19:28:00 EDT, [...] tablet, Refills 5, Tot. Refills 5, Maintenance, 01/18/20 9:31:00 EDT, Route to Pharmacy Electronically, [facility]/pharmacy #[id number], 152, cm, 11/01/19 19:28:00 EDT, Height, 81, kg, 11/01/19 19:28:00 EDT, Dry Weight Start Date: 01/18/20 Stop Date: 07/16/20 Status: Ordered Meclizine By Mouth, 3 times a day, 0 Refills, Maintenance, 05/13/19 15:48:17 EDT Start Date: 05/13/19 Status: Ordered metoprolol 25 mg oral tablet 25 mg, 1, tablet, By Mouth, 2 times a day, This is an increase in dose., # 180 tablet, Refills 3, Tot. Refills 3, Maintenance, 11/01/19 16:17:00 EDT, Route to Pharmacy Electronically, [facility]/pharmacy #[id number], 152, cm, 10/22/19 15:02:00 EST, Height Start Date: 11/01/19 Stop Date: 10/26/20 Status: Ordered riboflavin 100 mg oral tablet 1 tablet = 100 mg, By Mouth, 2 times a day, # 60 tablet, 4 Refills, Maintenance, 01/03/20 13:00:00 EDT, [facility]/pharmacy #[id number], 152, cm, 11/01/19 19:28:00 EDT, Height, 81, kg, 11/01/19 19:28:00 EDT, Dry Weight Start Date: 01/03/20 Stop Date: 06/01/20 Status: Ordered Vitamin D3 1000 [...]
--- OUTSIDE RECORDS SUMMARY | 2023-07-21 12:59 | XMS_ITS | Continuity of Care Document ---
Author Name Unknown Organization [facility] Address [address] [place] [address]- Care Team Providers Care Customs Entry Clerk Name Role Phone Renato MORRISON, Milton Loyola Primary Care Physicia n Encounter [facility] [place] Date(s): 07/31/21 - 08/30/21 [facility] [address] [place] [address]- Allergies, Adverse Reactions, Alerts Substance Reaction Severity [...] Patient Refuses 1Result Comment: NS DIL LOT [id number] EXP 11/2022 2Result Comment: DILUENT LOT#: [id number] EXP: 11/14 MFG: FRESENSIUS Medications albuterol 0.083% [...] 12:25:00 EST, Aerosol, Route to Pharmacy Electronically, [id number], [facility]/pharmacy #[id number], 152, cm, 06/01/20 9:54:00 EDT, [...] 10/06/20 12:25:00 EST, Route to Pharmacy Electronically, [facility]/pharmacy #[id number], 152, cm, 06/01/20 9:54:00 EDT, Height, 81, kg, 11/01/19 19:28:00 EDT, Dry Weight Start Date: 10/06/20 Status: Ordered atorvastatin 10 mg oral tablet 1 tablet = 10 mg, By Mouth, Daily, # 30 tablet, 5 Refills, Maintenance, 05/05/21 11:03:00 EDT, [facility]/pharmacy #[id number], Partial fill upon patient request if the prescription is for a schedule II opioid drug., 152, cm, 04/18/21 13:24:00 EDT, Height, 85.2, k... Start Date: 05/05/21 Stop Date: 11/01/21 Status: Ordered BD Ultra-Fine pen needles, BERTRAM 4 mm x 32 G BD Ultra-Fine pen needles, BERTRAM 4 mm x 32 G, See Instructions, # 150 each, Refills 11, Tot. [id number], Maintenance, Use for times a days with [...] Mouth, 2 times a day, with food Ecuadorean label, # 60 tablet, 3 Refills, Maintenance, 07/24/21 15:01:00 EST, [facility]/pharmacy #[id number], Partial fill upon patient request if the prescription is for a schedule II opioid drug., 152, cm, 3... Start Date: 07/24/21 Stop Date: 11/21/21 Status: Ordered ergocalciferol 22219 iu oral capsule 50,000 International_Units, 1, capsule, By Mouth, Every week, # 18 capsule, Refills 0, Tot. Refills0, Maintenance, 06/01/21 13:45:00 EDT, Route to Pharmacy Electronically, [facility]/pharmacy #[id number], Partial fill upon patient request if the prescription is f... Start Date: 06/01/21 Stop Date: 2/5/22 Status: Ordered Escitalopram = 20 mg, By Mouth, Daily, 0 Refills, Maintenance, 05/13/19 15:46:32 EDT Start Date: 05/13/19 Status: Ordered Eucerin Plus topical lotion 1 application, Topically, 2 times a day, PRN for dry skin, # 600 mL, 1 Refills, Maintenance, 06/01/21 13:51:00 EDT, Lotion, [facility]/pharmacy #[id number], Partial fill upon patient request [...] 11 Refills, Maintenance, 05/04/21 14:14:00 EDT, Solution, [facility]/pharmacy #[id number], Partial fill upon patient request if the prescription is for a schedule II opio... Start Date: 05/04/21 Status: Ordered Imitrex 50 mg oral tablet See Instructions, 1 tablet By Mouth at onset of headache. May repeat once in 2 hours. Not > 4/ week., # 9 tablet, 0 Refills, Maintenance, 01/03/20 13:01:00 EDT, [facility]/pharmacy #[id number], 152, cm, 11/01/19 19:28:00 EDT, [...] 09/26/22 12:17:00 EST, 10/01/21 12:17:00 EST, Solution, [facility]/pharmacy #[id number], 152, cm, 05/04/21 13:50:00 EDT, Height, 85.2, kg, 04/18/21 13:24:00 EDT, Dry... Start Date: 10/01/21 Stop Date: 09/26/22 Status: Ordered loratadine 10 mg oral tablet See Instructions, ASAD BURKETT TODOS LOS MIRANDA, # 30 tablet, Refills 5, Maintenance, Instructions Replace Required Details, Route to Pharmacy Electronically, [id number], 152, cm, 11/06/20 10:17:00 EDT, Height, 81, kg, 11/01/19 19:28:00 EDT, . Start Date: 04/03/21 Status: Ordered meclizine 25 mg oral tablet 1 tablet = 25 mg, By Mouth, 3 times a day, PRN for dizziness, # 30 tablet, 0 Refills, Maintenance, 04/08/21 22:48:00 EDT, Tablet, [facility]/pharmacy #[id number], Partial fill upon patient request [...] 10/26/20 16:17:00 EST, Route to Pharmacy Electronically, [facility]/pharmacy #[id number], 152, cm, 06/01... Start Date: 10/26/20 Stop Date: 10/21/21 Status: Ordered [employer] COVID-19 Vaccine 30 mcg/0.3 mL preservative-free intramuscular [...] JULIAN, # 60 tablet, 4 Refills, Maintenance, [facility] [id number], 152, cm, 11/06/20 10:17:00 EDT, Height, 81, [...]
--- OUTSIDE RECORDS SUMMARY | 2023-07-21 13:00 | XMS_ITS | Continuity of Care Document ---
Author Name Unknown Organization [facility] Address Unknown Care Team Providers Care Finish Filer Name Role Phone Renato LAMP CLEANER, Milton Loyola Primary Care Physicia n Encounter [facility] [place] Date(s): 03/11/22 - 04/10/22 [facility] Allergies, Adverse Reactions, Alerts Substance Reaction Severity [...] Patient Refuses 1Result Comment: NS DIL LOT [id number] EXP 11/2022 2Result Comment: DILUENT LOT#: [id number] EXP: 11/14 MFG: FRESENSIUS Medications albuterol 0.083% [...] release tablet See Instructions, ASAD BASHIR TABLETA TOLOMAS MIRANDA, # 30 tablet, 11 Refills, 03/28/22 11:20:00 EDT, [facility]/pharmacy #[id number], 149.86, cm, 03/28/22 10:52:00 EDT, Height, 85.7, kg, 07/24/21 14:26:00 EST, Dry Weight Start Date: 03/28/22 Status: Ordered atorvastatin 10 mg oral tablet See Instructions, ASAD BASHIR TABLETA MARIANNE RODRÍGUEZ MIRANDA, # 30 tablet, 11 Refills, 03/28/22 11:20:00 EDT, [facility]/pharmacy #[id number], 149.86, cm, 03/28/22 10:52:00 EDT, Height, 85.7, kg, 07/24/21 14:26:00 EST, Dry Weight Start Date: 03/28/22 Status: Ordered BD Ultra-Fine pen needles, BERTRAM 4 mm x 32 G BD Ultra-Fine pen needles, BERTRAM 4 mm x 32 G, See Instructions, # 150 each, Refills 11, Tot. [id number], Maintenance, Use for times a days with [...] tablet, Refills 1, Route to Pharmacy Electronically, [facility] 375[facility], 149.86, cm, 08/15/21 11:29:00 EST, Height, 85.7, [...] Mouth, 2 times a day, with food Slovak label, # 60 tablet, 3 Refills, Maintenance, 07/24/21 15:01:00 EST, [facility]/pharmacy #[id number], Partial fill upon patient request if the prescription is for a schedule II opioid drug., 152, cm, 06/27... Start Date: 07/24/21 Stop Date: 11/21/21 Status: Ordered ergocalciferol 38899 iu oral capsule See Instructions, TOME 1 CAPSULA POR VIA ORAL ONCE WEEKLY, # 4 capsule, Refills 4, Instructions Replace Required Details, Route to Pharmacy Electronically, [facility], 149.86, cm, 08/15/21 11:29:00 EST, Height, 85.7, kg, 07/24/21 14:26:00 EST, Start Date: 09/24/21 Status: Ordered Escitalopram = 20 mg, By Mouth, Daily, 0 Refills, Maintenance, 05/13/19 15:46:32 EDT Start Date: 05/13/19 Status: Ordered Eucerin Plus topical lotion 1 application, Topically, 2 times a day, PRN for dry skin, # 600 mL, 1 Refills, Maintenance, 06/01/21 13:51:00 EDT, Misti, [facility]/pharmacy #[id number], Partial fill upon patient request if the [...] L[place], # 15 Unknown, 5 Refills, [facility], 149.86, cm, 08/15/21 11:29:00 EST, Height, 85.7, kg, 07/24/21 14:26:00 EST, Dry Weight Start Date: 11/13/21 Status: Ordered Imitrex 50 mg oral tablet See Instructions, 1 tablet By Mouth at onset of headache. May repeat once in 2 hours. Not > 4/ week., # 9 tablet, 0 Refills, Maintenance, 01/03/20 13:01:00 EDT, [facility]/pharmacy #[id number], 152, cm, 11/01/19 19:28:00 EDT, [...] 09/21/23 12:17:00 EST, 09/26/22 12:17:00 EST, Solution, [facility]/pharmacy #[id number], 149.86, cm, 03/28/22 10:52:00 EDT, Height, 85.7, kg, 07/24/21 14:26:00 EST,... Start Date: 09/26/22 Stop Date: 09/21/23 Status: Ordered Lantus Solostar Pen 100 units/mL subcutaneous solution = 40 units, Subcutaneous Injection, Daily, for 30 days, DM E 11.9., # 12 mL, 11 Refills, Hard Stop 09/26/22 12:17:00 EST, 10/01/21 12:17:00 EST, Solution, [facility]/pharmacy #[id number], 152, cm, 05/04/21 13:50:00 EDT, Height, 85.2, kg, 04/18/21 13:24:00 EDT, Dry... Start Date: 10/01/21 Stop Date: 09/26/22 Status: Ordered loratadine 10 mg oral tablet See Instructions, PJE KRYSTEN TABLETA TODOS LOS MIRANDA, # 30 tablet, Refills 5, Tot. Refills 5, 03/28/2211:21:00 EDT, Instructions Replace Required Details, Route to Pharmacy Electronically, [facility]/pharmacy#4471, 149.86, cm, 03/28/22 10:52:00 EDT, Height, 8... Start Date: 03/28/22 Status: Ordered meclizine 25 mg oral tablet 1 tablet = 25 mg, By Mouth, 3 times a day, PRN for dizziness, # 30 tablet, 0 Refills, Maintenance, 04/08/21 22:48:00 EDT, Tablet, [facility]/pharmacy #[id number], Partial fill upon patient request if the prescription is for a schedule II opioid drug., 152, cm, ... Start Date: 04/08/21 Status: Ordered [employer] COVID-19 Vaccine 30 mcg/0.3 mL preservative-free intramuscular [...] Replace Required Details, Route to Pharmacy Electronically, [id number]... Start Date: 03/28/22 Status: Ordered raised toilt [...] JULIAN, # 60 tablet, 4 Refills, Maintenance, [facility] [id number], 152, cm, 11/06/20 10:17:00 EDT, Height, 81, [...]
--- OUTSIDE RECORDS SUMMARY | 2023-07-21 13:00 | XMS_ITS | Continuity of Care Document ---
Author Name Unknown Organization [facility] Address [address] [place] [address]- Care Team Providers Care Auto Tune Up Mechanic Name Role Phone Milton Gross NP Primary Care Physicia n Encounter [facility] [place] Date(s): 12/25/21 - 01/24/22 [facility] [address] [place] [address]- Attending Physician: Jimenez Grant Admitting Physician: Jimenez [...] Patient Refuses 1Result Comment: NS DIL LOT [id number] EXP 11/2022 2Result Comment: DILUENT LOT#: [id number] EXP: 11/14 MFG: FRESENSIUS Medications albuterol 0.083% inhalation solution 3 mL = 2.5 mg, Inhalation, Every 6 hours, PRN for wheezing, # 25 each, 11 Refills, Maintenance, 10/06/20 12:25:00 EST, Solution, [facility]/pharmacy #[id number], 152, cm, 06/01/20 9:54:00 EDT, [...] TOLOMAS MIRANDA, # 30 tablet, 11 Refills, [facility] [id number], 149.86, cm, 08/15/21 11:29:00 EST, Height, 85.7, kg, 07/24/21 14:26:00 EST, Dry Weight Start Date: 10/16/21 Status: Ordered atorvastatin 10 mg oral tablet See Instructions, ASAD BASHIR TABLETA QustreetKal Mango-Mate MIRANDA, # 30 tablet, 5 Refills, [facility]138, 149.86,cm, 08/15/21 11:29:00 EST, Height, 85.7, kg, 07/24/21 14:26:00 EST, Dry Weight Start Date: 10/29/21 Status: Ordered BD Ultra-Fine pen needles, BERTRAM 4 mm x 32 G BD Ultra-Fine pen needles, BERTRAM 4 mm x 32 G, See Instructions, # 150 each, Refills 11, Tot. [id number], Maintenance, Use for times a days with [...] tablet, Refills 1, Route to Pharmacy Electronically, [facility] [address]309, 149.86, cm, 08/15/21 11:29:00 EST, Height, 85.7, [...] Mouth, 2 times a day, with food Guatemalan label, # 60 tablet, 3 Refills, Maintenance, 07/24/21 15:01:00 EST, [facility]/pharmacy #[id number], Partial fill upon patient request if the prescription is for a schedule II opioid drug., 152, cm, 06/27... Start Date: 07/24/21 Stop Date: 11/21/21 Status: Ordered ergocalciferol 40475 iu oral capsule See Instructions, TOME 1 CAPSULA POR VIA ORAL ONCE WEEKLY, # 4 capsule, Refills 4, Instructions Replace Required Details, Route to Pharmacy Electronically, [facility] [address], 149.86, cm, 08/15/21 11:29:00 EST, Height, 85.7, kg, 07/24/21 14:26:00 EST, Start Date: 09/24/21 Status: Ordered Escitalopram = 20 mg, By Mouth, Daily, 0 Refills, Maintenance, 05/13/19 15:46:32 EDT Start Date: 05/13/19 Status: Ordered Eucerin Plus topical lotion 1 application, Topically, 2 times a day, PRN for dry skin, # 600 mL, 1 Refills, Maintenance, 06/01/21 13:51:00 EDT, Lotion, [facility]/pharmacy #[id number], Partial fill upon patient request if the [...] # 15 Unknown, 5 Refills, [facility], 149.86, cm, 08/15/21 11:29:00 EST, Height, 85.7, kg, 07/24/21 14:26:00 EST, Dry Weight Start Date: 11/13/21 Status: Ordered Imitrex 50 mg oral tablet See Instructions, 1 tablet By Mouth at onset of headache. May repeat once in 2 hours. Not > 4/ week., # 9 tablet, 0 Refills, Maintenance, 01/03/20 13:01:00 EDT, [facility]/pharmacy #[id number], 152, cm, 11/01/19 19:28:00 EDT, [...] 09/26/22 12:17:00 EST, 10/01/21 12:17:00 EST, Solution, [facility]/pharmacy #[id number], 152, cm, 05/04/21 13:50:00 EDT, Height, 85.2, kg, 04/18/21 13:24:00 EDT, Dry... Start Date: 10/01/21 Stop Date: 09/26/22 Status: Ordered loratadine 10 mg oral tablet See Instructions, ASAD MIRANDA, # 30 tablet, Refills 5, Instructions Replace Required Details, Route to Pharmacy Electronically, [facility] 7[facility]73, 149.86, cm, 08/15/21 11:29:00 EST,Height, 85.7, kg, 07/24/21 14:26:00 EST, Dry Weight Start Date: 09/27/21 Status: Ordered meclizine 25 mg oral tablet 1 tablet = 25 mg, By Mouth, 3 times a day, PRN for dizziness, # 30 tablet, 0 Refills, Maintenance, 04/08/21 22:48:00 EDT, Tablet, [facility]/pharmacy #[id number], Partial fill upon patient request if the prescription is for a schedule II opioid drug., 152, cm, 03/... Start Date: 04/08/21 Status: Ordered [employer] COVID-19 Vaccine 30 mcg/0.3 mL preservative-free intramuscular [...] Replace Required Details, Route to Pharmacy Electronically, [id number], [facility], 149.86, cm, 12... Start Date: 10/15/21 Status: [...] JULIAN, # 60 tablet, 4 Refills, Maintenance, [facility] [id number], 152, cm, 11/06/20 10:17:00 EDT, Height, 81, [...]
--- OUTSIDE RECORDS SUMMARY | 2023-07-21 13:00 | XMS_ITS | Continuity of Care Document ---
Author Name Unknown Organization [facility] Address [address] [place] [address]- Care Team Providers Care Hostel Manager Name Role Phone Renato MORRISON, Milton Loyola Primary Care Physicia n [place] [facility] [place] - 09/22/21 [facility] [address] [place] [address]- Attending Physician: Akhil Eastman MD Admitting Physician: [...] Patient Refuses 1Result Comment: NS DIL LOT [id number] EXP 11/2022 2Result Comment: DILUENT LOT#: [id number] EXP: 11/14 MFG: FRESENSIUS Medications albuterol 0.083% [...] 12:25:00 EST, Aerosol, Route to Pharmacy Electronically, [id number], [facility]/pharmacy #[id number], 152, cm, 06/01/20 [...] 10/06/20 12:25:00 EST, [id number] 152, cm, 06/01/20 9:54:00 EDT, Height, [...] Instructions, # 150 each, Refills 11, Tot. [id number], Maintenance, Use for times a days with [...] Mouth, 2 times a day, with food Turkmen label, # 60 tablet, 3 Refills, Maintenance, 07/24/21 15:01:00 EST, [facility]/pharmacy #[id number], Partial fill upon patient request if the prescription is for a schedule II opioid drug., 152, cm, 06/27... Start Date: 07/24/21 Stop Date: 11/21/21 Status: Ordered ergocalciferol 03744 iu oral capsule 50,000 International_Units, 1, capsule, [...] mg oral tablet See Instructions, ASAD BURKETT TOGARCES, # 30 tablet, Refills 5, Maintenance, Instructions Replace Required Details, Route to Pharmacy Electronically, [facility] [id number], 152, cm, 11/06/20 10:17:00 EDT, Height, 81, [...] Date: 10/26/20 Stop Date: 10/21/21 Status: Ordered [employer] COVID-19 Vaccine 30 mcg/0.3 mL preservative-free intramuscular [...] tablet, 4 Refills, Maintenance, [facility] [id number], 152, cm, 11/06/20 10:17:00 EDT, Height, 81, [...]
--- OUTSIDE RECORDS SUMMARY | 2023-07-21 13:00 | XMS_ITS | Continuity of Care Document ---
Author Name Unknown Organization [facility] Address [address] [place] [phone]- Care Team Providers Care System Safety Engineer Name Role Phone Milton Gross NP Primary Care Physicia n Encounter [facility] [place] Date(s): 05/27/22 - 06/03/22 [facility] [address] [place] [address]- Attending Physician: Akhil Eastman MD Admitting Physician: [...] Patient Refuses 1Result Comment: NS DIL LOT [id number] EXP 11/2022 2Result Comment: DILUENT LOT#: [id number] EXP: 11/14 MFG: FRESENSIUS Medications albuterol 0.083% inhalation solution 3 mL = 2.5 mg, Inhalation, Every 6 hours, PRN for wheezing, # 25 each, 11 Refills, Maintenance, 05/24/22 14:28:00 EDT, Solution, [facility]/pharmacy #[id number], 149.86, cm, 05/24/22 13:53:00 EDT, Height, [...] release tablet See Instructions, ASAD KRYSTEN TABLETA ISAANTHONY MARCOS MIRANDA, # 30 tablet, 11 Refills, 05/24/22 14:42:00 EDT, [facility]/pharmacy #[id number], 149.86, cm, 05/24/22 13:53:00 EDT, Height, 85.7, kg, 07/24/21 14:26:00 EST, Dry Weight Start Date: 05/24/22 Status: Ordered atorvastatin 10 mg oral tablet See Instructions, ASAD KRYSTEN TABLETA ISAANTHONY MARCOS MIRANDA, # 30 tablet, 11 Refills, 05/24/22 14:42:00 EDT, [facility]/pharmacy #[id number], 149.86, cm, 05/24/22 13:53:00 EDT, Height, 85.7, kg, 07/24/21 14:26:00 EST, Dry Weight Start Date: 05/24/22 Status: Ordered BD Ultra-Fine pen needles, BERTRAM 4 mm x 32 G BD Ultra-Fine pen needles, BERTRAM 4 mm x 32 G, See Instructions, # 150 each, Refills 11, Tot. [id number], Maintenance, Use for times a days with [...] Compound Start Date: 07/25/21 Status: Ordered ergocalciferol 64049 iu oral capsule See Instructions, TOME 1 CAPSULA POR VIA ORAL ONCE WEEKLY, # 4 capsule, Refills 4, Tot. Refills 4, 05/24/22 14:29:00 EDT, Instructions Replace Required Details, Route to Pharmacy Electronically, [facility]/pharmacy #[id number], 149.86, cm, 05/24/22 13:53:00 EDT, H... Start Date: 05/24/22 Status: Ordered Escitalopram = 20 mg, By Mouth, Daily, 0 Refills, Maintenance, 05/13/19 15:46:32 EDT Start Date: 05/13/19 Status: Ordered Eucerin Plus topical lotion 1 application, Topically, 2 times a day, PRN for dry skin, # 600 mL, 1 Refills, Maintenance, 05/24/22 14:28:00 EDT, Lotion, [facility]/pharmacy #[id number], Partial fill upon [...] 15 Unknown, 5 Refills, 05/24/22 14:29:00 EDT, [facility]/pharmacy #[id number], 149.86, cm, 05/24/22 13:53:00 EDT, Height, 85.7, kg, 07/24/21 14:26:00 EST, Dry Weight Start Date: 05/24/22 Status: Ordered Imitrex 50 mg oral tablet See Instructions, 1 tablet By Mouth at onset of headache. May repeat once in 2 hours. Not > 4/ week., # 9 tablet, 0 Refills, Maintenance, 01/03/20 13:01:00 EDT, [facility]/pharmacy #[id number], 152, cm, 11/01/19 [...] 09/15/24 12:17:00 EST, 09/21/23 12:17:00 EST, Solution, [facility]/pharmacy #[id number], 149.86, cm, 05/24/22 13:53:00 EDT, Height, 85.7, kg, 07/24/21 14:26:00 EST,... Start Date: 09/21/23 Stop Date: 09/15/24 Status: Ordered loratadine 10 mg oral tablet See Instructions, TOME KRYSTEN TABLETA TODOS LOS MIRANDA, # 30 tablet, Refills 5, Tot. Refills 5, 05/24/2214:42:00 EDT, Instructions Replace Required Details, Route to Pharmacy Electronically, [facility]/pharmacy#[id number], 149.86, cm, 05/24/22 13:53:00 EDT, Height, 8... Start Date: 05/24/22 Status: Ordered meclizine 25 mg oral tablet 1 tablet = 25 mg, By Mouth, 3 times a day, PRN for dizziness, # 30 tablet, 0 Refills, Maintenance, 05/31/22 13:26:00 EDT, Tablet, [facility]/pharmacy #[id number], Partial fill upon [...] 05/31/22 13:26:00 EDT, Route to Pharmacy Electronically, [facility]/pharmacy #[id number], 149.86, cm, 10... Start Date: 05/31/22 Stop Date: 05/26/23 Status: Ordered ProAir HFA 90 mcg/inh inhalation aerosol with adapter See Instructions, INHALE 2 PUFFS CADA CUATRO HORAS CUANDO SEA NECESARIO FOR WHEEZING, # 8.5 each, Refills 5, Tot. Refills 5, 03/28/22 11:21:00 EDT, Instructions Replace Required Details, Route to Pharmacy Electronically, [id number]... Start Date: 03/28/22 Status: Ordered sulindac 200 mg oral tablet 1 tablet = 200 mg, By Mouth, 2 times a day, # 60 tablet, 2 Refills, Maintenance, 05/24/22 14:29:00 EDT, Tablet, [facility]/pharmacy #[id number], Partial fill upon patient request if the prescription is for a schedule II opioid drug., 149.86, cm, 05/24/22 13:53:00... Start Date: 05/24/22 Status: Ordered Vitamin B2 100 mg oral tablet See Instructions, ASAD LEZAMA AL JULIAN, # 60 tablet, 4 Refills, Maintenance, [facility] [id number], 152, cm, 11/06/20 10:17:00 EDT, Height, 81, [...] Confirmed Active Obstructive sleep apnea Confirmed Active Vital Signs Most recent to oldest [Reference Range]: 1 Height 149.86 cm (05/27/22 9:58 AM) Weight 81.19 kg (05/27/22 9:58 AM) Oxygen Saturation [94-100 %] 97 % (05/27/22 9:58 AM) Pulse Rate [55-90 bpm] 92 bpm *H* (05/27/22 9:58 AM) Body Mass Index [18.5-24.99 kg/m2] 36.15 kg/m2 *>HHI* (05/27/22 9:58 AM) Blood Pressure [90-138/55-84 mm Hg] 126/ 70mm Hg (05/27/22 9:58 AM) Mode of Delivery (Oxygen) Room air (05/27/22 9:58 AM) Blood pressure sites Arm, left (05/27/22 9:58 AM) Weight Obtained Via Patient/family state d (05/27/22 9:58 AM) Social History Social History Type Response Smoking Status Never smoker; Tobacc o user in household: No; Type: Cigarettes entered on: 11/07/14 Sex Patient Care team information Personnel Name: Milton Gross NP Address: Address: [address] [place] [address]
--- OUTSIDE RECORDS SUMMARY | 2023-07-21 13:00 | XMS_ITS | Continuity of Care Document ---
Author Name Unknown Organization [facility] ter Address [address] [place] [address]- Care Team Providers Care Wallpaper Scraper Name Role Phone Renato MORRISON, Milton Loyola Primary Care Physicia n Encounter [facility] Date(s): 07/17/21 - 08/30/[address] [address] Attending Physician: Akhil Eastman MD Admitting [...] Patient Refuses 1Result Comment: NS DIL LOT [id number] EXP 11/2022 2Result Comment: DILUENT LOT#: [id number] EXP: 11/14 MFG: FRESENSIUS Medications albuterol 0.083% [...] 12:25:00 EST, Aerosol, Route to Pharmacy Electronically, [id number], [facility]/pharmacy #[id number], 152, cm, 06/01/20 9:54:00 EDT, Hei... [...] 10/06/20 12:25:00 EST, Route to Pharmacy Electronically, [facility]/pharmacy #[id number], 152, cm, 06/01/20 9:54:00 EDT, Height, 81, kg, 11/01/19 19:28:00 EDT, Dry Weight Start Date: 10/06/20 Status: Ordered atorvastatin 10 mg oral tablet 1 tablet = 10 mg, By Mouth, Daily, # 30 tablet, 5 Refills, Maintenance, 05/05/21 11:03:00 EDT, [facility]/pharmacy #[id number], Partial fill upon patient request if the prescription is for a schedule II opioid drug., 152, cm, 04/18/21 13:24:00 EDT, Height, 85.2, k... Start Date: 05/05/21 Stop Date: 11/01/21 Status: Ordered BD Ultra-Fine pen needles, BERTRAM 4 mm x 32 G BD Ultra-Fine pen needles, BERTRAM 4 mm x 32 G, See Instructions, # 150 each, Refills 11, Tot. [id number], Maintenance, Use for times a days with [...] Mouth, 2 times a day, with food Kiswahili label, # 60 tablet, 3 Refills, Maintenance, 07/24/21 15:01:00 EST, [facility]/pharmacy #[id number], Partial fill upon patient request if the prescription is for a schedule II opioid drug., 152, cm, 06/27... Start Date: 07/24/21 Stop Date: 11/21/21 Status: Ordered ergocalciferol 46182 iu oral capsule 50,000 International_Units, 1, capsule, By Mouth, Every week, # 18 capsule, Refills 0, Tot. Refills0, Maintenance, 06/01/21 13:45:00 EDT, Route to Pharmacy Electronically, [facility]/pharmacy #[id number], Partial fill upon patient request if the prescription is f... Start Date: 06/01/21 Stop Date: 09/29/21 Status: Ordered Escitalopram = 20 mg, By Mouth, Daily, 0 Refills, Maintenance, 05/13/19 15:46:32 EDT Start Date: 05/13/19 Status: Ordered Eucerin Plus topical lotion 1 application, Topically, 2 times a day, PRN for dry skin, # 600 mL, 1 Refills, Maintenance, 06/01/21 13:51:00 EDT, Lotion, [facility]/pharmacy #[id number], Partial fill upon patient request if [...] 11 Refills, Maintenance, 05/04/21 14:14:00 EDT, Solution, [facility]/pharmacy #[id number], Partial fill upon patient request if the prescription is for a schedule II opio... Start Date: 05/04/21 Status: Ordered Imitrex 50 mg oral tablet See Instructions, 1 tablet By Mouth at onset of headache. May repeat once in 2 hours. Not > 4/ week., # 9 tablet, 0 Refills, Maintenance, 01/03/20 13:01:00 EDT, [facility]/pharmacy #[id number], 152, cm, 11/01/19 19:28:00 EDT, Height, [...] 09/26/22 12:17:00 EST, 10/01/21 12:17:00 EST, Solution, [facility]/pharmacy #[id number], 152, cm, 05/04/21 13:50:00 EDT, Height, 85.2, kg, 04/18/21 13:24:00 EDT, Dry... Start Date: 10/01/21 Stop Date: 09/26/22 Status: Ordered loratadine 10 mg oral tablet See Instructions, ASAD BURKETT TODOS LOS MIRANDA, # 30 tablet, Refills 5, Maintenance, Instructions Replace Required Details, Route to Pharmacy Electronically, [facility] ST[id number], 152, cm, 11/06/20 10:17:00 EDT, Height, 81, kg, 11/01/19 19:28:00 EDT, DrBonilla.. Start Date: 04/03/21 Status: Ordered meclizine 25 mg oral tablet 1 tablet = 25 mg, By Mouth, 3 times a day, PRN for dizziness, # 30 tablet, 0 Refills, Maintenance, 04/08/21 22:48:00 EDT, Tablet, [facility]/pharmacy #[id number], Partial fill upon patient request if [...] 10/26/20 16:17:00 EST, Route to Pharmacy Electronically, [facility]/pharmacy #[id number], 152, cm, 06/01... Start Date: 10/26/20 Stop Date: 10/21/21 Status: Ordered PlayData COVID-19 Vaccine 30 mcg/0.3 mL preservative-free intramuscular [...] JULIAN, # 60 tablet, 4 Refills, Maintenance, [facility] [id number], 152, cm, 11/06/20 10:17:00 EDT, Height, 81, [...]
--- OUTSIDE RECORDS SUMMARY | 2023-07-21 13:00 | XMS_ITS | Continuity of Care Document ---
Author Name Unknown Organization [facility] Address [address] [place] [address]- Care Team Providers Care Refuge Manager Name Role Phone Milton Gross NP Primary Care Physicia n Encounter [facility] [id number] Date(s): 05/29/21 - 06/28/21 [facility] [address] [place] [address]- Attending Physician: Jimenez Grant Admitting Physician: AdmtrJimenez Referring Physician: Admtr, Jimenez Allergies, Adverse Reactions, Alerts Substance Reaction Severity [...] Patient Refuses 1Result Comment: NS DIL LOT [id number] EXP 11/2022 2Result Comment: DILUENT LOT#: [id number] EXP: 11/14 MFG: FRESENSIUS Medications albuterol 0.083% inhalation solution 3 mL = 2.5 mg, Inhalation, Every 6 hours, PRN for wheezing, # 25 each, 11 Refills, Maintenance, 10/06/20 12:25:00 EST, Solution, [facility]/pharmacy #[id number], 152, cm, 06/01/20 9:54:00 EDT, Height, 81, kg, 11/01/19 19:28:00 EDT, Dry Weight Start Date: 10/06/20 Status: Ordered albuterol CFC free 90 mcg/inh inhalation aerosol 2, puffs, Inhalation, Every 4 hours, PRN, # 18 Gm, Refills 11, Tot. Refills 11, Maintenance, 10/06/20 12:25:00 EST, Aerosol, Route to Pharmacy Electronically, [id number], [facility]/pharmacy #[id number], 152, cm, 06/01/20 9:54:00 [...] 10/06/20 12:25:00 EST, Route to Pharmacy Electronically, [facility]/pharmacy #[id number], 152, cm, 06/01/20 9:54:00 EDT, Height, 81, kg, 11/01/19 19:28:00 EDT, Dry Weight Start Date: 10/06/20 Status: Ordered atorvastatin 10 mg oral tablet 1 tablet = 10 mg, By Mouth, Daily, # 30 tablet, 5 Refills, Maintenance, 05/05/21 11:03:00 EDT, [facility]/pharmacy #[id number], Partial fill upon [...] 0 Refills, Maintenance, 12/14/20 11:40:00 EDT, Tablet, [facility]/pharmacy #[id number], Partial fill upon patient request if the prescription is for a schedule II opioid drug., 152, cm,... Start Date: 12/14/20 Stop Date: 12/28/20 Status: Ordered BD Ultra-Fine pen needles, BERTRAM 4 mm x 32 G BD Ultra-Fine pen needles, BERTRAM 4 mm x 32 G, See Instructions, # 150 each, Refills 11, Tot. [id number], Maintenance, Use for times a days with insulin. DM E119, 10/06/20 12:18:00 EST, Compound, 152, cm, 06/01/20 9:54:00 EDT, Height, 81, kg, 11/01/19 1... Start Date: 10/06/20 Status: Ordered BENGAY Arthritis topical cream See Instructions, rub into areas of pain and muscle tightness; instructions in Irish, # 1 each, 2Refills, Maintenance, 12/14/20 11:39:00 EDT, [facility]/pharmacy #[id number], Partial fill upon [...] 11/28/20 10:24:00 EDT, Route to Pharmacy Electronically, [facility]/pharmacy #[id number], 152, cm, 06/01/20 9:54:00 [...] Compound Start Date: 04/18/21 Status: Ordered ergocalciferol 71089 iu oral capsule 50,000 International_Units, 1, capsule, By Mouth, Every week, # 18 capsule, Refills 0, Tot. Refills0, Maintenance, 06/01/21 13:45:00 EDT, Route to Pharmacy Electronically, [facility]/pharmacy #[id number], Partial fill upon patient request if the prescription is f... Start Date: 06/01/21 Stop Date: 09/29/21 Status: Ordered Escitalopram By Mouth, Daily, 0 Refills, Maintenance, 05/13/19 15:46:32 EDT Start Date: 05/13/19 Status: Ordered Eucerin Plus topical lotion 1 application, Topically, 2 times a day, PRN for dry skin, # 600 mL, 11 Refills, Maintenance, 10/06/20 12:22:00 EST, Lotion, [facility]/pharmacy #[id number], 1 application Topically 2 times a day,PRN:for dry skin, 152, cm, 06/01/20 9:54:00 EDT, Height, 81, kg, 03/... Start Date: 10/06/20 Status: Ordered Eucerin Plus topical lotion 1 application, Topically, 2 times a day, PRN for dry skin, # 600 mL, 1 Refills, Maintenance, 06/01/21 13:51:00 EDT, Lotion, [facility]/pharmacy #[id number], Partial [...] 06/01/21 13:48:00 EDT, Route to Pharmacy Electronically, [facility]/pharmacy #[id number], Partial fill upon patient request if the prescription is for a schedule II... Start Date: 06/01/21 Stop Date: 07/31/21 Status: Ordered Humalog 100 u/ml subcutaneous injection = 15 units, Subcutaneous Injection, 3 times a day before meals, discontinue admelog, # 15 mL, 11 Refills, Maintenance, 05/04/21 14:14:00 EDT, Solution, [facility]/pharmacy #[id number], Partial fill upon patient request if the prescription is for a schedule II opio... Start Date: 05/04/21 Status: Ordered HumaLOG KwikPen 100 units/mL injectable solution = 15 units, Subcutaneous Infusion, 3 times a day before meals, Dx E11.9. D/C admelog same dose 15 units . give kwik pen, # 15 mL, 11 Refills, Maintenance, 10/06/20 12:20:00 EST, [facility]/pharmacy #[id number], 152, cm, 06/01/20 9:54:00 EDT, Height, 81, kg, ... Start Date: 10/06/20 Stop Date: 10/01/21 Status: Ordered Imitrex 50 mg oral tablet See Instructions, 1 tablet By Mouth at onset of headache. May repeat once in 2 hours. Not > 4/ week., # 9 tablet, 0 Refills, Maintenance, 01/03/20 13:01:00 EDT, [facility]/pharmacy #[id number], 152, cm, 11/01/19 19:28:00 [...] 09/26/22 12:17:00 EST, 10/01/21 12:17:00 EST, Solution, [facility]/pharmacy #[id number], 152, cm, 05/04/21 13:50:00 EDT, Height, 85.2, kg, 04/18/21 13:24:00 EDT, Dry... Start Date: 10/01/21 Stop Date: 09/26/22 Status: Ordered loratadine 10 mg oral tablet See Instructions, ASAD MIRANDA, # 30 tablet, Refills 5, Maintenance, Instructions Replace Required Details, Route to Pharmacy Electronically, [id number], 152, cm, 11/06/20 10:17:00 EDT, Height, 81, kg, 11/01/19 19:28:00 EDT, DrBonilla.. Start Date: 04/03/21 Status: Ordered meclizine 25 mg oral tablet See Instructions, TOME KRYSTEN TABLETA POR VIA ORAL GIBRAN VECES AL JULIAN CUANDO SEA NECESARIO DIZZINESS, #50 tablet, 1 Refills, Acute, [id number], 152, cm, 11/06/20 10:17:00 EDT, Height, 81, kg, 11/01/19 19:28:00 EDT, Dry Weight Start Date: 12/07/20 Status: Ordered meclizine 25 mg oral tablet 1 tablet = 25 mg, By Mouth, 3 times a day, PRN for dizziness, # 30 tablet, 0 Refills, Maintenance, 04/08/21 22:48:00 EDT, Tablet, [facility]/pharmacy #[id number], Partial fill upon [...] 10/26/20 16:17:00 EST, Route to Pharmacy Electronically, [facility]/pharmacy #[id number], 152, cm, 06/01... Start Date: 10/26/20 Stop Date: 10/21/21 Status: Ordered Fluent Home COVID-19 Vaccine 30 mcg/0.3 mL preservative-free intramuscular [...] 2 Refills, Maintenance, 12/14/20 11:44:00 EDT, Tablet, [facility]/pharmacy #[id number], Partial fill upon patient request if the prescription is for a schedule II opioid drug., 152, cm, 11/06/20 10:17:00 EDT... Start Date: 12/14/20 Status: Ordered Vitamin B2 100 mg oral tablet See Instructions, ASAD LEZAMA AL JULIAN, # 60 tablet, 4 Refills, Maintenance, [facility] [id number], 152, cm, 11/06/20 10:17:00 EDT, Height, 81, [...]
--- OUTSIDE RECORDS SUMMARY | 2023-07-21 13:00 | XMS_ITS | Continuity of Care Document ---
Author Name Unknown Organization [facility] Address [address], [address], [address] [place] [address]- Care Team Providers Care Marine Painter Name Role Phone Renato MORRISON, Milton Loyola Primary Care Physicia n Encounter [facility] [place] Date(s): 01/05/20 - 05/04/20 [facility] [address], [address], [address] [place] [address] [facility] Attending Physician: Jenny Silva MD Admitting Physician: [...] Stop 10/16/20 12:40:00 EST, 10/22/19 12:40:00 EST, [facility]/pharmacy #[id number]... Start Date: 10/22/19 Stop Date: 10/16/20 [...] 18:58:54 EDT, Aerosol, Route to Pharmacy Electronically, [id number], [facility]/pharmacy #[id number], Compound Start Date: 11/02/18 Status: [...] 11/02/18 18:58:53 EDT, Route to Pharmacy Electronically, [id number], [facility]/pharmacy #[id number] Start Date: 11/02/18 Status: Ordered BD Ultra-Fine pen needles, BERTRAM 4 mm x 32 G BD Ultra-Fine pen needles, BERTRAM 4 mm x 32 G, See Instructions, # 150 each, Refills 11, Tot. [id number], Maintenance, Use for times a days with [...] 11/02/18 18:58:54 EDT, Route to Pharmacy Electronically, [id number], [facility]/pharmacy #[id number] Start Date: 11/02/18 Stop Date: [...] tablet, 0 Refills, Maintenance, 01/03/20 13:01:00 EDT, [facility]/pharmacy #[id number], 152, cm, 11/01/19 19:28:00 EDT, [...] 01/18/20 9:31:00 EDT, [id number], cm, 11/01/19 19:28:00 EDT, Height, [...] 11/01/19 16:17:00 EDT, Route to Pharmacy Electronically, [facility]/pharmacy #[id number], 152, cm, 10/22/19 15:02:00 EST, Height Start Date: 11/01/19 Stop Date: 10/26/20 Status: Ordered riboflavin 100 mg oral tablet 1 tablet = 100 mg, By Mouth, 2 times a day, # 60 tablet, 4 Refills, Maintenance, 01/03/20 13:00:00 EDT, [facility]/pharmacy #[id number], 152, cm, 11/01/19 19:28:00 EDT, Height, 81, kg, 11/01/19 19:28:00 EDT, Dry Weight Start Date: 01/03/20 Stop Date: 06/01/20 Status: Ordered sulindac 150 mg oral tablet See Instructions, PJE KRYSTEN TABLETA POR VIA ORAL DOS VECES AL JULIAN CUANDO SEA NECESARIO, # 60 tablet,2 Refills, Maintenance, [id number], 152, cm, 11/01/19 19:28:00 EDT, Height, 81, kg, 11/01/19 19:28:00 EDT, Dry Weight Start Date: 03/29/20 Status: Ordered Vitamin D3 1000 intl units [...]
--- OUTSIDE RECORDS SUMMARY | 2023-07-21 13:00 | XMS_ITS | Continuity of Care Document ---
Author Name Unknown Organization [facility] Address [address] [place] [address]- Care Team Providers Care Scientific Research Associate Name Role Phone Renato MORRISON, Milton Loyola Primary Care Physicia n En[place] [facility] [place] [facility] [place] [id number] Date(s): 06/18/22 - 07/18/22 [facility] [address] [place] [address]- Attending Physician: Jimenez Grant Admitting Physician: AdmJimenez vieira Referring Physician: AdmtrJimenez Allergies, Adverse Reactions, Alerts Substance Reaction Severity Status traMADol tongue numbness--but she fell near loc Active Immunizations Given and Recorded Vaccine Date Status Refusal Reason [id number] bivalent booster vax 07/17/22 Given influenza virus [...] Patient Refuses 1Result Comment: NS DIL LOT [id number] EXP 11/2022 2Result Comment: DILUENT LOT#: [id number] EXP: 11/14 MFG: FRESENSIUS Medications acetaminophen 325 mg oral capsule 1 capsule = 325 mg, By Mouth, Every 4 hours, PRN as needed for fever, not to exceed 4000 mg/day Print in Bahraini, # 90 capsule, 1 Refills, Acute 09/20/22 11:47:00 EST, 07/17/22 11:47:00 EST, Capsule,[facility]/pharmacy #[id number], Partial fill upon patient requ... Start [...] = 5 mg, By Mouth, Daily, by [employer] records, # 30 tablet, 3 Refills, Maintenance, 07/04/22 11:38:00 EST, Tablet, [facility]/pharmacy #[id number], Partial fill upon patient request if the prescription is for a schedule II opioid drug., 149.8, cm, 07/04/22 11... Start Date: 07/04/22 Stop Date: 11/01/22 Status: Ordered Aspirin Low Dose 81 mg oral delayed release tablet See Instructions, ASAD BURKETT TODOS LOS MIRANDA by [employer] records continue, # 30 tablet, 11 Refills, 07/04/22 11:40:00 EST, [id number], 149.8, cm, 07/04/22 11:20:00 EST, Height, 83.3, kg, 06/14/22 18:50:00 EDT, Dry Weight Start Date: 07/04/22 Status: Ordered atorvastatin 10 mg oral tablet See Instructions, TOME KRYSTEN TABLETA TOLOMAS MIRANDA, # 30 tablet, 11 Refills, 05/24/22 14:42:00 EDT, [id number], 149.86, cm, 05/24/22 13:53:00 EDT, Height, 85.7, kg, 07/24/21 14:26:00 EST, Dry Weight Start Date: 05/24/22 Status: Ordered BD Ultra-Fine pen needles, BERTRAM 4 mm x 32 G BD Ultra-Fine pen needles, BERTRAM 4 mm x 32 G, See Instructions, # 150 each, Refills 11, Tot. [id number], Maintenance, Use for times a days with [...] Compound Start Date: 07/25/21 Status: Ordered ergocalciferol 13456 iu oral capsule See Instructions, TOME 1 CAPSULA POR VIA ORAL ONCE WEEKLY, # 4 capsule, Refills 4, Tot. Refills 4, 05/24/22 14:29:00 EDT, Instructions Replace Required Details, Route to Pharmacy Electronically, [facility]/pharmacy #[id number], 149.86, cm, 05/24/22 13:53:00 EDT, H... Start Date: 05/24/22 Status: Ordered Escitalopram = 20 mg, By Mouth, Daily, 0 Refills, Maintenance, 05/13/19 15:46:32 EDT Start Date: 05/13/19 Status: Ordered Eucerin Plus topical lotion 1 application, Topically, 2 times a day, PRN for dry skin, # 600 mL, 1 Refills, Maintenance, 05/24/22 14:28:00 EDT, Lotion, [facility]/pharmacy #[id number], Partial fill upon [...] 15 Unknown, 5 Refills, 05/24/22 14:29:00 EDT, [facility]/pharmacy #[id number], 149.86, cm, 05/24/22 13:53:00 EDT, Height, 85.7, kg, 07/24/21 14:26:00 EST, Dry Weight Start Date: 05/24/22 Status: Ordered Imitrex 50 mg oral tablet See Instructions, 1 tablet By Mouth at onset of headache. May repeat once in 2 hours. Not > 4/ week., # 9 tablet, 0 Refills, Maintenance, 01/03/20 13:01:00 EDT, [facility]/pharmacy #[id number], 152, cm, 11/01/19 [...] 09/15/24 12:17:00 EST, 09/21/23 12:17:00 EST, Solution, [facility]/pharmacy #[id number], 149.86, cm, 05/24/22 13:53:00 EDT, Height, 85.7, kg, 07/24/21 14:26:00 EST,... Start Date: 09/21/23 Stop Date: 09/15/24 Status: Ordered loratadine 10 mg oral tablet See Instructions, ASAD BURKETT TODOS LOS MIRANDA, # 30 tablet, Refills 5, Tot. Refills 5, 05/24/2214:42:00 EDT, Instructions Replace Required Details, Route to Pharmacy Electronically, [facility]/pharmacy#[id number], 149.86, cm, 05/24/22 13:53:00 EDT, Height, 8... Start Date: 05/24/22 Status: Ordered meclizine 25 mg oral tablet 1 tablet = 25 mg, By Mouth, 3 times a day, PRN for dizziness, # 30 tablet, 0 Refills, Maintenance, 05/31/22 13:26:00 EDT, Tablet, [facility]/pharmacy #[id number], Partial fill upon [...] Route to Pharmacy Electronically, [facility]/pharmacy #[id number], 149.86, cm, 10... [...] Replace Required Details, Route to Pharmacy Electronically, [id number]... Start Date: 03/28/22 Status: Ordered Pulse Oximeter [...] JULIAN, # 60 tablet, 4 Refills, Maintenance, [facility] [id number], 152, cm, 11/06/20 10:17:00 EDT, Height, 81, [...] Care team information Care Team Personnel Name: Javid AGUILAR, Jesika Position: [facility] RN Member Role: Primary Care Nurse Name: Milton Gross NP Position: [facility] PCO Associate Professional Member Role: PCP Address: Address: [address] [place] [address]- Care Team Related Persons Name: YASMIN FISHER Address: home [address] [address]
--- OUTSIDE RECORDS SUMMARY | 2023-07-21 13:01 | XMS_ITS | Continuity of Care Document ---
Author Name Unknown Organization [facility] Address [address] [place] [address]- Care Team Providers Care Tip Cutter Name Role Phone Renato MORRISON, Milton Loyola Primary Care Physicia n Encounter [facility] [place] Date(s): 06/29/21 - 07/06/21 [facility] [address] [place] [address]- Attending Physician: Akhil Eastman MD Admitting Physician: [...] Patient Refuses 1Result Comment: NS DIL LOT [id number] EXP 11/2022 2Result Comment: DILUENT LOT#: [id number] EXP: 11/14 MFG: FRESENSIUS Medications albuterol 0.083% inhalation solution 3 mL = 2.5 mg, Inhalation, Every 6 hours, PRN for wheezing, # 25 each, 11 Refills, Maintenance, 10/06/20 12:25:00 EST, Solution, [facility]/pharmacy #[id number], 152, cm, 06/01/20 9:54:00 EDT, Height, 81, kg, 11/01/19 19:28:00 EDT, Dry Weight Start Date: 10/06/20 Status: Ordered albuterol CFC free 90 mcg/inh inhalation aerosol 2, puffs, Inhalation, Every 4 hours, PRN, # 18 Gm, Refills 11, Tot. Refills 11, Maintenance, 10/06/20 12:25:00 EST, Aerosol, Route to Pharmacy Electronically, [id number], [facility]/pharmacy #[id number], 152, cm, 06/01/20 9:54:00 [...] 10/06/20 12:25:00 EST, Route to Pharmacy Electronically, [facility]/pharmacy #[id number], 152, cm, 06/01/20 9:54:00 EDT, Height, 81, kg, 11/01/19 19:28:00 EDT, Dry Weight Start Date: 10/06/20 Status: Ordered atorvastatin 10 mg oral tablet 1 tablet = 10 mg, By Mouth, Daily, # 30 tablet, 5 Refills, Maintenance, 05/05/21 11:03:00 EDT, [facility]/pharmacy #[id number], Partial fill upon patient request if the prescription is for a schedule II opioid drug., 152, cm, 04/18/21 13:24:00 EDT, Height, 85.2, k... Start Date: 05/05/21 Stop Date: 11/01/21 Status: Ordered baclofen 5 mg oral tablet 1 tablet = 5 mg, By Mouth, 3 times a day, may cause drowsiness., # 42 tablet, 0 Refills, Maintenance, 12/14/20 11:40:00 EDT, Tablet, [facility]/pharmacy #[id number], Partial fill upon patient request if the prescription is for a schedule II opioid drug., 152, cm,... Start Date: 12/14/20 Stop Date: 12/28/20 Status: Ordered BD Ultra-Fine pen needles, BERTRAM 4 mm x 32 G BD Ultra-Fine pen needles, BERTRAM 4 mm x 32 G, See Instructions, # 150 each, Refills 11, Tot. [id number], Maintenance, Use for times a days with insulin. DM E119, 10/06/20 12:18:00 EST, Compound, 152, cm, 06/01/20 9:54:00 EDT, Height, 81, kg, 11/01/19 1... Start Date: 10/06/20 Status: Ordered BENGAY Arthritis topical cream See Instructions, rub into areas of pain and muscle tightness; instructions in Persian, # 1 each, 2Refills, Maintenance, 12/14/20 11:39:00 EDT, [facility]/pharmacy #[id number], Partial fill upon patient [...] 11/28/20 10:24:00 EDT, Route to Pharmacy Electronically, [facility]/pharmacy #[id number], 152, cm, 06/01/20 9:54:00 EDT, Height, 81, kg, 10/31... Start Date: 11/28/20 Stop Date: 05/27/21 Status: Ordered Compression Stockings See Instructions, # 2 each, Refills 2, Tot. Refills 2, Maintenance, surgical, knee length 20-30 mm Hg Dx: I83.899, 11/25/20 11:47:00 EST, Supply Start Date: 07/19/20 Status: [...] Compound Start Date: 04/18/21 Status: Ordered ergocalciferol 30491 iu oral capsule 50,000 International_Units, 1, capsule, By Mouth, Every week, # 18 capsule, Refills 0, Tot. Refills0, Maintenance, 06/01/21 13:45:00 EDT, Route to Pharmacy Electronically, [facility]/pharmacy #[id number], Partial fill upon patient request if the prescription is f... Start Date: 06/01/21 Stop Date: 09/29/21 Status: Ordered Escitalopram By Mouth, Daily, 0 Refills, Maintenance, 05/13/19 15:46:32 EDT Start Date: 05/13/19 Status: Ordered Eucerin Plus topical lotion 1 application, Topically, 2 times a day, PRN for dry skin, # 600 mL, 11 Refills, Maintenance, 10/06/20 12:22:00 EST, Lotion, [facility]/pharmacy #[id number], 1 application Topically 2 times a day,PRN:for dry skin, 152, cm, 06/01/20 9:54:00 EDT, Height, 81, kg, 03/... Start Date: 10/06/20 Status: Ordered Eucerin Plus topical lotion 1 application, Topically, 2 times a day, PRN for dry skin, # 600 mL, 1 Refills, Maintenance, 06/01/21 13:51:00 EDT, Lotion, [facility]/pharmacy #[id number], Partial fill upon patient [...] 06/01/21 13:48:00 EDT, Route to Pharmacy Electronically, [facility]/pharmacy #[id number], Partial fill upon patient request if the prescription is for a schedule II... Start Date: 06/01/21 Stop Date: 07/31/21 Status: Ordered Humalog 100 u/ml subcutaneous injection = 15 units, Subcutaneous Injection, 3 times a day before meals, discontinue admelog, # 15 mL, 11 Refills, Maintenance, 05/04/21 14:14:00 EDT, Solution, [facility]/pharmacy #[id number], Partial fill upon patient request if the prescription is for a schedule II opio... Start Date: 05/04/21 Status: Ordered HumaLOG KwikPen 100 units/mL injectable solution = 15 units, Subcutaneous Infusion, 3 times a day before meals, Dx E11.9. D/C admelog same dose 15 units . give kwik pen, # 15 mL, 11 Refills, Maintenance, 10/06/20 12:20:00 EST, [facility]/pharmacy #[id number], 152, cm, 06/01/20 9:54:00 EDT, Height, 81, kg, ... Start Date: 10/06/20 Stop Date: 10/01/21 Status: Ordered Imitrex 50 mg oral tablet See Instructions, 1 tablet By Mouth at onset of headache. May repeat once in 2 hours. Not > 4/ week., # 9 tablet, 0 Refills, Maintenance, 01/03/20 13:01:00 EDT, [facility]/pharmacy #[id number], 152, cm, 11/01/19 19:28:00 [...] 09/26/22 12:17:00 EST, 10/01/21 12:17:00 EST, Solution, [facility]/pharmacy #[id number], 152, cm, 05/04/21 13:50:00 EDT, Height, 85.2, kg, 04/18/21 13:24:00 EDT, Dry... Start Date: 10/01/21 Stop Date: 09/26/22 Status: Ordered loratadine 10 mg oral tablet See Instructions, ASAD RODRÍGUEZ MIRANDA, # 30 tablet, Refills 5, Maintenance, Instructions Replace Required Details, Route to Pharmacy Electronically, [id number], 152, cm, 11/06/20 10:17:00 EDT, Height, 81, kg, 11/01/19 19:28:00 EDT, . Start Date: 04/03/21 Status: Ordered meclizine 25 mg oral tablet See Instructions, TOME KRYSTEN TABLETA POR VIA ORAL GIBRAN VECES AL JULIAN CUANDO SEA NECESARIO DIZZINESS, #50 tablet, 1 Refills, Acute, [facility] [id number], 152, cm, 11/06/20 10:17:00 EDT, Height, 81, kg, 11/01/19 19:28:00 EDT, Dry Weight Start Date: 12/07/20 Status: Ordered meclizine 25 mg oral tablet 1 tablet = 25 mg, By Mouth, 3 times a day, PRN for dizziness, # 30 tablet, 0 Refills, Maintenance, 04/08/21 22:48:00 EDT, Tablet, [facility]/pharmacy #[id number], Partial fill upon patient [...] 10/26/20 16:17:00 EST, Route to Pharmacy Electronically, [facility]/pharmacy #[id number], 152, cm, 06/01... Start Date: 10/26/20 Stop Date: 10/21/21 Status: Ordered Memamp COVID-19 Vaccine 30 mcg/0.3 mL preservative-free intramuscular [...] 2 Refills, Maintenance, 12/14/20 11:44:00 EDT, Tablet, [facility]/pharmacy #[id number], Partial fill upon patient request if the prescription is for a schedule II opioid drug., 152, cm, 11/06/20 10:17:00 EDT... Start Date: 12/14/20 Status: Ordered Vitamin B2 100 mg oral tablet See Instructions, ASAD BASHIR TABLETA DOS VECES AL JULIAN, # 60 tablet, 4 Refills, Maintenance, [facility] [id number], 152, cm, 11/06/20 10:17:00 EDT, Height, 81, kg, 11/01/19 19:28:00 EDT, Dry Weight Start Date: 03/07/21 Status: Ordered Problem List Condition Effective Dates Status Health Status Inform ant Annual physical exam(Confirmed) Active Asthma(Confirmed) Active Depression(Confirmed) Active Diabetes mellitus(Confirmed) Active Hypertension(Confirmed) Active Lactic acidosis(Confirmed) Active Meningioma(Confirmed) Active Obstructive sleep apnea(Confirmed) Active Vital Signs Most recent to oldest [Reference Range]: 1 Height 152 cm (06/29/21 3:19 PM) Weight 82.0 kg (06/29/21 3:19 PM) Pulse Rate [55-90 bpm] 88 bpm (06/29/21 3:19 PM) Body Mass Index [18.5-24.99] 35.49 *>HHI* (06/29/21 3:19 PM) Blood Pressure [90-138/55-84 mm Hg] 132/ 88mm Hg (06/29/21 3:19 PM) Blood pressure sites Arm, right (06/29/21 3:19 PM) Weight Obtained Via Patient/family state d (06/29/21 3:19 PM) Social History Social History Type Response Smoking Status Never smoker; Tobacc o user in household: No; Type: Cigarettes entered on: 11/07/14 Sex
--- OUTSIDE RECORDS SUMMARY | 2023-07-21 13:01 | XMS_ITS | Continuity of Care Document ---
Author Name Unknown Organization [facility] Address [address] [place] [address]- Care Team Providers Care Agricultural Extension Educator Name Role Phone Milton Gross NP Primary Care Physicia n En[place] [facility] [place] [facility] [id number] Date(s): 11/01/19 - 11/11/[address] [address]- [facility] Attending Physician: Jimenez Grant Admitting Physician: Jimenez [...] 18:58:54 EDT, Aerosol, Route to Pharmacy Electronically, [id number], [facility]/pharmacy #[id number], Compound Start Date: 11/02/18 Status: Ordered [...] 11/02/18 18:58:53 EDT, Route to Pharmacy Electronically, [id number], [facility]/pharmacy #[id number] Start Date: 11/02/18 Status: Ordered BD Ultra-Fine pen needles, BERTRAM 4 mm x 32 G BD Ultra-Fine pen needles, BERTRAM 4 mm x 32 G, See Instructions, # 150 each, Refills 11, Tot. [id number], Maintenance, Use for times a days with [...] 11/02/18 18:58:54 EDT, Route to Pharmacy Electronically, [id number], [facility]/pharmacy #[id number] Start Date: 11/02/18 Stop Date: 05/01/19 [...] 11/01/19 16:17:00 EDT, Route to Pharmacy Electronically, [facility]/pharmacy #[id number], 152, cm, 10/22/19 15:02:00 EST, Height [...] Stop 01/20/20 12:40:00 EDT, 10/22/19 12:40:00 EST, [facility]/pharmacy #[id number], 152, c... Start Date: 10/22/19 Stop Date: 01/20/20 Status: Ordered sulindac 150 mg oral tablet [...]
--- OUTSIDE RECORDS SUMMARY | 2023-07-21 13:01 | XMS_ITS | Continuity of Care Document ---
Author Name Unknown Organization [facility] Address [address], [address] [place] [address]- Care Team Providers Care Boom Cat Operator Name Role Phone Milton Gross NP Primary Care Physicia n [place] [facility] [place] - 06/07/22 [facility] [address], [address] [place] [address]- Attending Physician: Jimenez Grant Admitting Physician: Jimenez [...] Patient Refuses 1Result Comment: NS DIL LOT [id number] EXP 11/2022 2Result Comment: DILUENT LOT#: [id number] EXP: 11/14 MFG: FRESENSIUS Medications albuterol 0.083% inhalation solution 3 mL = 2.5 mg, Inhalation, Every 6 hours, PRN for wheezing, # 25 each, 11 Refills, Maintenance, 05/24/22 14:28:00 EDT, Solution, [facility]/pharmacy #[id number], 149.86, cm, 05/24/22 13:53:00 EDT, Height, [...] release tablet See Instructions, ASAD KRYSTEN TABLETA TOS MARCOS MIRANDA, # 30 tablet, 11 Refills, 05/24/22 14:42:00 EDT, [facility]/pharmacy #[id number], 149.86, cm, 05/24/22 13:53:00 EDT, Height, 85.7, kg, 07/24/21 14:26:00 EST, Dry Weight Start Date: 05/24/22 Status: Ordered atorvastatin 10 mg oral tablet See Instructions, PJSole KRYSTEN TABLETA TOS MARCOS MIRANDA, # 30 tablet, 11 Refills, 05/24/22 14:42:00 EDT, [facility]/pharmacy #[id number], 149.86, cm, 05/24/22 13:53:00 EDT, Height, 85.7, kg, 07/24/21 14:26:00 EST, Dry Weight Start Date: 05/24/22 Status: Ordered BD Ultra-Fine pen needles, BERTRAM 4 mm x 32 G BD Ultra-Fine pen needles, BERTRAM 4 mm x 32 G, See Instructions, # 150 each, Refills 11, Tot. [id number], Maintenance, Use for times a days with [...] Compound Start Date: 07/25/21 Status: Ordered ergocalciferol 73475 iu oral capsule See Instructions, TOME 1 CAPSULA POR VIA ORAL ONCE WEEKLY, # 4 capsule, Refills 4, Tot. Refills 4, 05/24/22 14:29:00 EDT, Instructions Replace Required Details, Route to Pharmacy Electronically, [facility]/pharmacy #[id number], 149.86, cm, 05/24/22 13:53:00 EDT, H... Start Date: 05/24/22 Status: Ordered Escitalopram = 20 mg, By Mouth, Daily, 0 Refills, Maintenance, 05/13/19 15:46:32 EDT Start Date: 05/13/19 Status: Ordered Eucerin Plus topical lotion 1 application, Topically, 2 times a day, PRN for dry skin, # 600 mL, 1 Refills, Maintenance, 05/24/22 14:28:00 EDT, Lotion, [facility]/pharmacy #[id number], Partial fill upon patient request if [...] 15 Unknown, 5 Refills, 05/24/22 14:29:00 EDT, [facility]/pharmacy #[id number], 149.86, cm, 05/24/22 13:53:00 EDT, Height, 85.7, kg, 07/24/21 14:26:00 EST, Dry Weight Start Date: 05/24/22 Status: Ordered Imitrex 50 mg oral tablet See Instructions, 1 tablet By Mouth at onset of headache. May repeat once in 2 hours. Not > 4/ week., # 9 tablet, 0 Refills, Maintenance, 01/03/20 13:01:00 EDT, [facility]/pharmacy #[id number], 152, cm, 11/01/19 19:28:00 EDT, Height, [...] 09/15/24 12:17:00 EST, 09/21/23 12:17:00 EST, Solution, [facility]/pharmacy #[id number], 149.86, cm, 05/24/22 13:53:00 EDT, Height, 85.7, kg, 07/24/21 14:26:00 EST,... Start Date: 09/21/23 Stop Date: 09/15/24 Status: Ordered loratadine 10 mg oral tablet See Instructions, TOME KRYSTEN TABLETA TODOS LOS MIRANDA, # 30 tablet, Refills 5, Tot. Refills 5, 05/24/2214:42:00 EDT, Instructions Replace Required Details, Route to Pharmacy Electronically, [facility]/pharmacy#[id number], 149.86, cm, 05/24/22 13:53:00 EDT, Height, 8... Start Date: 05/24/22 Status: Ordered meclizine 25 mg oral tablet 1 tablet = 25 mg, By Mouth, 3 times a day, PRN for dizziness, # 30 tablet, 0 Refills, Maintenance, 05/31/22 13:26:00 EDT, Tablet, [facility]/pharmacy #[id number], Partial fill upon patient request if [...] 05/31/22 13:26:00 EDT, Route to Pharmacy Electronically, [facility]/pharmacy #[id number], 149.86, cm, 10... Start Date: 05/31/22 Stop Date: 05/26/23 Status: Ordered ProAir HFA 90 mcg/inh inhalation aerosol with adapter See Instructions, INHALE 2 PUFFS CADA CUATRO HORAS CUANDO SEA NECESARIO FOR WHEEZING, # 8.5 each, Refills 5, Tot. Refills 5, 03/28/22 11:21:00 EDT, Instructions Replace Required Details, Route to Pharmacy Electronically, [id number]... Start Date: 03/28/22 Status: Ordered sulindac 200 mg oral tablet 1 tablet = 200 mg, By Mouth, 2 times a day, # 60 tablet, 2 Refills, Maintenance, 05/24/22 14:29:00 EDT, Tablet, [facility]/pharmacy #[id number], Partial fill upon patient request if the prescription is for a schedule II opioid drug., 149.86, cm, 05/24/22 13:53:00... Start Date: 05/24/22 Status: Ordered Vitamin B2 100 mg oral tablet See Instructions, ASAD LEZAMA AL JULIAN, # 60 tablet, 4 Refills, Maintenance, [facility] [id number], 152, cm, 11/06/20 10:17:00 EDT, Height, 81, [...] Personnel Name: Milton Gross NP Address: Address: [address] [place] [address]
--- OUTSIDE RECORDS SUMMARY | 2023-07-21 13:01 | XMS_ITS | Continuity of Care Document ---
Author Name Unknown Organization [facility] Address [address] [place] [address]- Care Team Providers Care Dry Kiln Loader Name Role Phone Renato STORES CLERK, Milton Loyola Primary Care Physicia n [facility] [id number] Date(s): 07/22/22 - 07/29/22 [facility] [address] [place] [address]- Attending Physician: Akhil Eastman MD Admitting Physician: Akhil Eastman MD Allergies, Adverse Reactions, Alerts Substance Reaction Severity Status traMADol tongue numbness--but she fell near loc Active Immunizations Given and Recorded Vaccine Date Status Refusal Reason [id number] bivalent booster vax 07/17/22 Given influenza virus [...] Patient Refuses 1Result Comment: NS DIL LOT [id number] EXP 11/2022 2Result Comment: DILUENT LOT#: [id number] EXP: 11/14 MFG: FRESENSIUS Medications acetaminophen 325 mg oral capsule 1 capsule = 325 mg, By Mouth, Every 4 hours, PRN as needed for fever, not to exceed 4000 mg/day Print in Venezuelan, # 90 capsule, 1 Refills, Acute 09/20/22 [...] = 5 mg, By Mouth, Daily, by [facility], # 30 tablet, 3 Refills, Maintenance, 07/04/22 11:38:00 EST, Tablet, [facility]/pharmacy #[id number], Partial fill upon patient request if the prescription is for a schedule II opioid drug., 149.8, cm, 07/04/22 11... Start Date: 07/04/22 Stop Date: 11/01/22 Status: Ordered Aspirin Low Dose 81 mg oral delayed release tablet See Instructions, ASAD BURKETT TODOS [place] MIRANDA by [facility] records continue, # 30 tablet, 11 Refills, 07/04/22 11:40:00 EST, [facility], 149.8, cm, 07/04/22 11:20:00 EST, Height, 83.3, kg, 06/14/22 18:50:00 EDT, Dry Weight Start Date: 07/04/22 Status: Ordered atorvastatin 10 mg oral tablet See Instructions, TOME KRYSTEN TABLETA TOGARCES, # 30 tablet, 11 Refills, 05/24/22 14:42:00 EDT, [facility]/pharmacy #4471, 149.86, cm, 05/24/22 13:53:00 EDT, Height, 85.7, kg, 07/24/21 14:26:00 EST, Dry Weight Start Date: 05/24/22 Status: Ordered BD Ultra-Fine pen needles, BERTRAM 4 mm x 32 G BD Ultra-Fine pen needles, BERTRAM 4 mm x 32 G, See Instructions, # 150 each, Refills 11, Tot. [id number], Maintenance, Use for times a days with [...] Compound Start Date: 07/25/21 Status: Ordered ergocalciferol 60543 iu oral capsule See Instructions, TOME 1 [...] Replace Required Details, Route to Pharmacy Electronically, [id number]... Start Date: 03/28/22 Status: Ordered Pulse Oximeter [...] 4 Refills, Maintenance, [facility] [id number], 152, cm, 11/06/20 10:17:00 EDT, Height, 81, [...] recent to oldest [Reference Range]: 1 Height 149.8 cm (07/22/22 9:38 AM) Weight 78.93 kg (07/22/22 9:38 AM) Oxygen Saturation [94-100 %] 85 % *L* (07/22/22 9:38 AM) Pulse Rate [55-90 bpm] 85 bpm (07/22/22 9:38 AM) Body Mass Index [18.5-24.99 kg/m2] 35.17 kg/m2 *>HHI* (07/22/22 9:38 AM) Blood Pressure [90-138/55-84 mm Hg] 98/5 0mm Hg (07/22/22 9:38 AM) Mode of Delivery (Oxygen) Room air (07/22/22 9:38 AM) Blood pressure sites Arm, left (07/22/22 9:38 AM) Weight Obtained Via Patient/family state d (07/22/22 9:38 AM) Social History Social History Type Response Smoking Status Never (less than 100 in lifetime) entered on: 06/14/22 Sex Note * Brooke Akins: PERFORM, SIGN, VERIFY Event Display: Patient Education/Instruction Authored Date: [id number] [facility] *BVS [address] Clinical Summary Name ZAID DELEON Age 52 Years 1970 PCP Milton Gross NP PCP Visit Date 07/22/2022 09:37:00 Additional Instructions: Scheduled Appointments?? Future Appointments ?[facility] ?[address]??[place],??[place],??[address] ?Phone:??[phone]?Fax:??-- ?Appt. Date:??08/05/2022?10:00 AM ?Scheduled Provider:??[facility] 3D Mammo Rm 4 ?[facility] ?[address] ?[place],??[place],??[address] ?Phone:??--?Fax:??-- ?Appt. Date:??08/08/2022?2:00 PM ?Scheduled Provider:??Dionisio MORRISON, Bouchra Ram Follow-Up Instructions ?? Diagnosis Medications: Please continue your medications until treatment is completed or stopped by your provider. Discuss any questions related to medications with your provider. Medications to Continue with No Changes These medications were not printed or sent to your pharmacy Acetaminophen (acetaminophen 325 mg oral capsule) 1 capsule Oral every 4 hours as needed as needed for fever. not to exceed 4000 mg/day Print in Venezuelan. Refills: 1. Next Dose: Albuterol (albuterol 0.083% inhalation solution) 3 Milliliter Inhalation every 6 hours as needed for wheezing. Refills: 11. Next Dose: Albuterol (ProAir HFA 90 mcg/inh inhalation aerosol with adapter) INHALE 2 PUFFS CADA CUATRO HORAS CUANDO SEA NECESARIO FOR WHEEZING. Refills: 5. Next Dose: apixaban (apixaban 5 mg oral tablet) 1 tab(s) Oral Daily for 30 Days. by [facility]. Refills: 3. Next Dose: Aspirin (Aspirin Low Dose 81 mg oral delayed release tablet) TOME KRYSTEN TABLETA TODOS [place] MIRANDA by [facility] continue. Refills: 11. Next Dose: Atorvastatin (atorvastatin 10 mg oral tablet) TOME KRYSTEN TABLETA TODOS [place] MIRANDA. Refills: 11. Next Dose: Durable Medical Equipment (Alcohol Wipes) [...] Refills: 5. Next Dose: Durable Medical Equipment (oxymeter) check when sob. Refills: 0. Next Dose: Durable Medical Equipment (Pulse Oximeter) For COVID Diagnosis (U07.1). Refills: 0. Next Dose: Emollients, Topical (Eucerin Plus topical lotion) 1 seema Topically twice a day as needed for dry skin. Refills: 1. Next Dose: Ergocalciferol (ergocalciferol 67766 iu oral capsule) TOME 1 CAPSULA POR VIA ORAL ONCE WEEKLY. Refills: 4. Next Dose: Escitalopram 20 Milligram Oral Daily. Next Dose: Insulin Glargine (Lantus Solostar Pen 100 units/mL subcutaneous solution) 40 unit(s) Subcutaneous Injection Daily for 30 Days. DM E 11.9.. Refills: 11. Next Dose: Insulin Lispro (Humalog Kwik Pen 100 units/mL subcutaneous injection) INJECT 15 UNITS POR VIA SUBCUTANEA GIBRAN VECES AL JULIAN ANTES DE LAS COMIDAS. Refills: 5. Next Dose: Loratadine (loratadine 10 mg oral tablet) TOME KRYSTEN TABLETA TODOS [place] MIRANDA. Refills: 5. Next Dose: [...] Orders ?No future orders Vital Signs Height 149.8 cm Weight 78.93 kg BMI 35.17 kg/m2 Blood Pressure 98 mm Hg/50 mm Hg Temperature Pulse Rate 85 bpm Respiratory Rate 02 Sat Mode of Delivery 85 %/Room air You can now view a summary of your hospital visit from the comfort of your home through a free online portal called [facility]. [facility] is a website that allows you to securely view your medical information including discharge summary, medications and follow-up visits. ??You can alsosend a secure electronic message to your doctor???s office to request appointments, renew medications or just ask a question. You can enroll at [email or web address] or register during your next office visit. [...] care provider, you may find a [facility] provider by calling [facility] at [phone]. For information about the plan of care [...] Care Nurse Name: Milton Gross NP Position: [facility] Associate Professional Member Role: PCP Address: Address: [address] [place], [place] [address]- Care Team Related Persons Name: YASMIN FISHER Address: [address] [address]
--- OUTSIDE RECORDS SUMMARY | 2023-07-21 13:01 | XMS_ITS | Continuity of Care Document ---
Author Name Unknown Organization [facility] Address [address] [place] [address]- Care Team Providers Care Slate Cutter Name Role Phone Milton Gross NP Primary Care Physicia n Encounter [facility] Date(s): 02/24/23 - 03/26/[address] [address]- Allergies, Adverse Reactions, Alerts Substance Reaction Severity Status traMADol tongue numbness--but she fell near [facility] Active Immunizations Given and Recorded Vaccine Date Status Refusal Reason [id number] bivalent booster vax 07/17/22 Given influenza virus [...] Patient Refuses 1Result Comment: NS DIL LOT [id number] EXP 11/2022 2Result Comment: DILUENT LOT#: [id number] EXP: 11/14 MFG: FRESENSIUS Medications albuterol 0.083% [...] = 5 mg, By Mouth, Daily, by [facility] records. Follow speciality, # 30 tablet, 2 Refills, Maintenance, 03/06/23 16:52:00 EDT, Tablet, [facility]/pharmacy #[id number], Partial fill upon patient request if theprescription is for a schedule II opioid drug., 145... Start Date: 03/06/23 Stop Date: 06/04/23 Status: Ordered Aspirin Low Dose 81 mg oral delayed release tablet See Instructions, ASAD BASHIR TABLETA MARIANNE MIRANDA by [facility] records continue, # 30 tablet, 11 Refills, 07/04/22 11:40:00 EST, [id number], 149.8, cm, 07/04/22 11:20:00 EST, Height, 83.3, kg, 06/14/22 18:50:00 EDT, Dry Weight Start Date: 07/04/22 Status: Ordered atorvastatin 10 mg oral tablet See Instructions, ASAD BASHIR TABLETMackenzie TOLOMAS MIRANDA, # 30 tablet, 11 Refills, 05/24/22 14:42:00 EDT, [facility], 149.86, cm, 05/24/22 13:53:00 EDT, Height, 85.7, kg, 07/24/21 14:26:00 EST, Dry Weight Start Date: 05/24/22 Status: Ordered BD Ultra-Fine pen needles, BERTRAM 4 mm x 32 G BD Ultra-Fine pen needles, BERTRAM 4 mm x 32 G, See Instructions, # 150 each, Refills 11, Tot. [id number], Maintenance, Use for times a days with [...] Compound Start Date: 07/25/21 Status: Ordered ergocalciferol 38505 iu oral capsule 1, capsule, By Mouth, Every week, # 4 capsule, Refills 4, Maintenance, 10/22/22 15:42:00 EST, [facility] Electron[facility], [facility], 149.8, cm, 07/22/22 9:38:00 EST, Height, 83.3, kg, 06/14/22 18:50:00 EDT, Dry Weight Start Date: 10/22/22 Status: Ordered Escitalopram = 20 mg, By Mouth, Daily, 0 Refills, Maintenance, 05/13/19 15:46:32 EDT Start Date: 05/13/19 Status: Ordered Eucerin Plus topical lotion 1 application, Topically, 2 times a day, PRN for dry skin, # 600 mL, 11 Refills, Maintenance, 01/17/23 13:42:00 EDT, Lotion, [facility]/pharmacy #[id number], Partial fill upon patient request if the prescription is for a schedule II opioid drug., 1 application Top... Start Date: 01/17/23 Stop Date: 01/12/24 Status: Ordered Eucerin Plus topical lotion 1 application, Topically, 2 times a day, PRN for dry skin, # 600 mL, 1 Refills, Maintenance, 05/24/22 14:28:00 EDT, Lotion, [facility]/pharmacy #[id number], Partial fill upon patient request [...] tablet, 0 Refills, Maintenance, 01/03/20 13:01:00 EDT, [facility]/pharmacy #[id number], 152, cm, 11/01/19 19:28:00 EDT, Height, 81, kg, 11/01/19 19:28:00 EDT,... Start Date: 01/03/20 Status: Ordered Insulin Lispro Scot KwikPen 100 units/mL injectable solution = 15 units, Subcutaneous Infusion, 3 times a day before meals, for 30 days, with breakfast and lunch rotate injection sites. stop novolog due insurance issues. in [place], # 15 mL, 11 Refills, Hard Stop 08/07/23 12:49:00 EST, 08/12/22 12:49:00 EST,... Start Date: 08/12/22 Stop Date: 08/07/23 Status: Ordered Insulin Lispro Scot KwikPen 100 units/mL injectable solution = 15 units, Subcutaneous Infusion, 3 times a day before meals, with breakfast and lunch rotate injection sites. stop novolog due insurance issues. in [place], # 15 mL, 11 Refills, Maintenance, 08/07/23 12:49:00 EST, [facility]/pharmacy #[id number], Partial fill... Start Date: 08/07/23 Stop [...] 09/10/25 12:17:00 EST, 09/15/24 12:17:00 EST, Solution, [facility]/pharmacy #[id number], 149.8, cm, 07/22/22 9:38:00 EST, Height, 83.3, kg, 06/14/22 18:50:00 EDT, . Start Date: 09/15/24 Stop Date: 09/10/25 Status: Ordered loratadine 10 mg oral tablet See Instructions, ASAD BURKETT TODOS [place] MIRANDA, # 30 tablet, Refills 5, Tot. Refills 5, 05/24/2214:42:00 EDT, Instructions Replace Required Details, Route to Pharmacy Electronically, [facility]/pharmacy#4471, 149.86, cm, 05/24/22 13:53:00 EDT, Height, 8... Start Date: 05/24/22 Status: Ordered meclizine 25 mg oral tablet 1 tablet = 25 mg, By Mouth, 3 times a day, PRN for dizziness, # 30 tablet, 0 Refills, Maintenance, 05/31/22 13:26:00 EDT, Tablet, [facility]/pharmacy #[id number], Partial fill upon patient request [...] 05/31/22 13:26:00 EDT, [facility] 149.86, cm, 10... Start Date: 05/31/22 [...] Replace Required Details, Route to Pharmacy Electronically, [id number]... Start Date: 01/17/23 Status: Ordered Pulse Oximeter Pulse Oximeter, See Instructions, # 1 each, Refills 0, Tot. Refills 0, Maintenance, For COVID Diagnosis (U07.1), 07/17/22 12:09:00 EST, Supply, 149.8, cm, 07/17/22 10:22:00 EST, Height, 83.3, kg, 06/14/22 18:50:00 EDT, Dry Weight Start Date: 07/17/22 Status: Ordered Vitamin B2 100 mg oral tablet See Instructions, TOME KRYSTEN TABLETA DOS VECES AL JULAIN, # 60 tablet, 4 Refills, Maintenance, [id number], 152, cm, 11/06/20 10:17:00 EDT, Height, 81, kg, 11/01/19 19:28:00 EDT, Dry Weight Start Date: 03/07/21 Status: Ordered Zithromax 250 mg oral tablet 1 pack/packet, By Mouth, Once, # 6 tablet, 0 Refills, Soft Stop, 01/05/23 23:08:00 EDT, Tablet, [facility]/pharmacy #[id number], Partial fill upon patient request [...] Care Nurse Name: Milton Gross NP Position: [facility] Associate Professional Member Role: PCP Address: Address: [address] [place] [address]- Care Team Related Persons Name: YASMIN FISHER Address: home [address] [place] [address]
--- OUTSIDE RECORDS SUMMARY | 2023-07-21 13:01 | XMS_ITS | Continuity of Care Document ---
Author Name Unknown Organization [facility] Address [address] [place] [address]- Care Team Providers Care Rf Test Technician Name Role Phone Renato MORRISON, Milton Loyola Primary Care Physicia n Encounter [facility] ACCT R [id number] Date(s): 08/23/21 - 09/22/21 [facility] [address] [place] [address]- Attending Physician: Jimenez Grant Admitting Physician: Jimenez [...] Patient Refuses 1Result Comment: NS DIL LOT [id number] EXP 11/2022 2Result Comment: DILUENT LOT#: [id number] EXP: 11/14 MFG: FRESENSIUS Medications albuterol 0.083% inhalation solution 3 mL = 2.5 mg, Inhalation, Every 6 hours, PRN for wheezing, # 25 each, 11 Refills, Maintenance, 10/06/20 12:25:00 EST, Solution, [id number], 152, cm, 06/01/20 9:54:00 EDT, Height, 81, kg, 11/01/19 19:28:00 EDT, Dry Weight Start Date: 10/06/20 Status: Ordered albuterol CFC free 90 mcg/inh inhalation aerosol 2, puffs, Inhalation, Every 4 hours, PRN, # 18 Gm, Refills 11, Tot. Refills 11, Maintenance, 10/06/20 12:25:00 EST, Aerosol, Route to Pharmacy Electronically, [id number], [facility]/pharmacy #4471, 152, cm, 06/01/20 9:54:00 EDT, [...] 10/06/20 12:25:00 EST, [id number], cm, 06/01/20 9:54:00 EDT, Height, 81, kg, 11/01/19 19:28:00 EDT, Dry Weight Start Date: 10/06/20 Status: Ordered atorvastatin 10 mg oral tablet 1 tablet = 10 mg, By Mouth, Daily, # 30 tablet, 5 Refills, Maintenance, 05/05/21 11:03:00 EDT, [facility]/pharmacy #[id number], Partial fill upon patient request if the prescription is for a schedule II opioid drug., 152, cm, 04/18/21 13:24:00 EDT, Height, 85.2, k... Start Date: 05/05/21 Stop Date: 11/01/21 Status: Ordered BD Ultra-Fine pen needles, BERTRAM 4 mm x 32 G BD Ultra-Fine pen needles, BERTRAM 4 mm x 32 G, See Instructions, # 150 each, Refills 11, Tot. [id number], Maintenance, Use for times a days with [...] Mouth, 2 times a day, with food Zambian label, # 60 tablet, 3 Refills, Maintenance, 07/24/21 15:01:00 EST, [facility]/pharmacy #4471, Partial fill upon patient request if the prescription is for a schedule II opioid drug., 152, cm, 06/27... Start Date: 07/24/21 Stop Date: 11/21/21 Status: Ordered ergocalciferol 47949 iu oral capsule 50,000 International_Units, 1, capsule, By Mouth, Every week, # 18 capsule, Refills 0, Tot. Refills0, Maintenance, 06/01/21 13:45:00 EDT, Route to Pharmacy Electronically, [facility]/pharmacy #[id number], Partial fill upon patient request if the prescription is f... Start Date: 06/01/21 Stop Date: 09/29/21 Status: Ordered Escitalopram = 20 mg, By Mouth, Daily, 0 Refills, Maintenance, 05/13/19 15:46:32 EDT Start Date: 05/13/19 Status: Ordered Eucerin Plus topical lotion 1 application, Topically, 2 times a day, PRN for dry skin, # 600 mL, 1 Refills, Maintenance, 06/01/21 13:51:00 EDT, Lotion, [facility]/pharmacy #[id number], Partial fill upon patient request [...] 11 Refills, Maintenance, 05/04/21 14:14:00 EDT, Solution, [facility]/pharmacy #[id number], Partial fill upon patient request if the prescription is for a schedule II opio... Start Date: 05/04/21 Status: Ordered Imitrex 50 mg oral tablet See Instructions, 1 tablet By Mouth at onset of headache. May repeat once in 2 hours. Not > 4/ week., # 9 tablet, 0 Refills, Maintenance, 01/03/20 13:01:00 EDT, [facility]/pharmacy #[id number], 152, cm, 11/01/19 19:28:00 EDT, [...] 09/26/22 12:17:00 EST, 10/01/21 12:17:00 EST, Solution, [facility]/pharmacy #4471, 152, cm, 05/04/21 13:50:00 EDT, Height, 85.2, kg, 04/18/21 13:24:00 EDT, Dry... Start Date: 10/01/21 Stop Date: 09/26/22 Status: Ordered loratadine 10 mg oral tablet See Instructions, ASAD BURKETT TODOS [place] MIRANDA, # 30 tablet, Refills 5, Maintenance, Instructions Replace Required Details, Route to Pharmacy Electronically, [facility] STORE [facility], 152, cm, 11/06/20 10:17:00 EDT, Height, 81, kg, 11/01/19 19:28:00 EDT, [facility].. Start Date: 04/03/21 Status: Ordered meclizine 25 mg oral tablet 1 tablet = 25 mg, By Mouth, 3 times a day, PRN for dizziness, # 30 tablet, 0 Refills, Maintenance, 04/08/21 22:48:00 EDT, Tablet, [facility]/pharmacy #[id number], Partial fill upon patient request [...] 10/26/20 16:17:00 EST, Route to Pharmacy Electronically, [facility]/pharmacy #[id number], 152, cm, 06/01... Start Date: 10/26/20 Stop Date: 10/21/21 Status: Ordered Táximo COVID-19 Vaccine 30 mcg/0.3 mL preservative-free intramuscular [...] 100 mg oral tablet See Instructions, ASAD CRUZ VECES AL JULIAN, # 60 tablet, 4 Refills, Maintenance, [facility] [id number], 152, cm, 11/06/20 10:17:00 EDT, Height, 81, [...]
--- OUTSIDE RECORDS SUMMARY | 2023-07-21 13:02 | XMS_ITS | Continuity of Care Document ---
Author Name Unknown Organization [facility] Address [address] [place] [address]- Care Team Providers Care Director Public Policy Name Role Phone Renato MORRISON, Milton Loyola Primary Care Physicia n [place] [facility] [place] 11/01/21 - 01/12/[address] [address]- Attending Physician: Cuong Geller OD Admitting Physician: Cuong Geller OD Referring Physician: Milton Gross NP Allergies, Adverse Reactions, Alerts Substance Reaction Severity Status traMADol tongue numbness--but she fell near [facility] Active Immunizations Given and Recorded Vaccine Date [...] Patient Refuses 1Result Comment: NS DIL LOT [id number] EXP 11/2022 2Result Comment: DILUENT LOT#: [id number] EXP: 11/14 MFG: FRESENSIUS Medications albuterol 0.083% [...] release tablet See Instructions, ASAD BASHIR TABLETA [facility], # 30 tablet, 11 Refills, [facility], 149.86, cm, 08/15/21 11:29:00 EST, Height, 85.7, kg, 07/24/21 14:26:00 EST, Dry Weight Start Date: 10/16/21 Status: Ordered atorvastatin 10 mg oral tablet See Instructions, ASAD BASHIR TABLETA DFMSimS, # 30 tablet, 5 Refills, [facility], 149.86,cm, 08/15/21 11:29:00 EST, Height, 85.7, kg, 07/24/21 14:26:00 EST, Dry Weight Start Date: 10/29/21 Status: Ordered BD Ultra-Fine pen needles, BERTRAM 4 mm x 32 G BD Ultra-Fine pen needles, BERTRAM 4 mm x 32 G, See Instructions, # 150 each, Refills 11, Tot. [id number], Maintenance, Use for times a days with [...] tablet, Refills 1, Route to Pharmacy Electronically, [facility] 640[facility], 149.86, cm, 08/15/21 11:29:00 EST, Height, 85.7, [...] Mouth, 2 times a day, with food Japanese label, # 60 tablet, 3 Refills, Maintenance, 07/24/21 15:01:00 EST, [facility]/pharmacy #8521, Partial fill upon patient request if the prescription is for a schedule II opioid drug., 152, cm, 06/27... Start Date: 07/24/21 Stop Date: 11/21/21 Status: Ordered ergocalciferol 59139 iu oral capsule See Instructions, TOME 1 CAPSULA POR VIA ORAL ONCE WEEKLY, # 4 capsule, Refills 4, Instructions Replace Required Details, Route to Pharmacy Electronically, [facility] 20275, 149.86, cm, 08/15/21 11:29:00 EST, Height, 85.7, kg, 07/24/21 14:26:00 EST, Start Date: 09/24/21 Status: Ordered Escitalopram = 20 mg, By Mouth, Daily, 0 Refills, Maintenance, 05/13/19 15:46:32 EDT Start Date: 05/13/19 Status: Ordered Eucerin Plus topical lotion 1 application, Topically, 2 times a day, PRN for dry skin, # 600 mL, 1 Refills, Maintenance, 06/01/21 13:51:00 EDT, Lotion, [facility]/pharmacy #1601, Partial fill upon patient request if the [...] Refills, USE TO TEST BLOOD GLUCOSE GIBRAN TORRES AL JULIAN, 149.86, cm, 08/15/21 11:29:00 EST, [...] INJECT 15 UNITS POR VIA SUBCUTANEA GIBRAN JOSIEES AL JULIAN ANTES DE LAS COMIDAS, # 15 Unknown, 5 Refills, [facility], 149.86, cm, 08/15/21 11:29:00 EST, Height, 85.7, [...] 09/26/22 12:17:00 EST, 10/01/21 12:17:00 EST, Solution, [facility]/pharmacy #4471, 152, cm, 05/04/21 13:50:00 EDT, Height, 85.2, kg, 04/18/21 13:24:00 EDT, Dry... Start Date: 10/01/21 Stop Date: 09/26/22 Status: Ordered loratadine 10 mg oral tablet See Instructions, ASAD KRYSTEN TABLETA TODOS LOS MIRANDA, # 30 tablet, Refills 5, Instructions Replace Required Details, Route to Pharmacy Electronically, [facility], 149.86, cm, 08/15/21 11:29:00 EST,Height, 85.7, kg, 07/24/21 14:26:00 EST, Dry Weight Start Date: 09/27/21 Status: Ordered meclizine 25 mg oral tablet 1 tablet = 25 mg, By Mouth, 3 times a day, PRN for dizziness, # 30 tablet, 0 Refills, Maintenance, 04/08/21 22:48:00 EDT, Tablet, [facility]/pharmacy #4471, Partial fill upon patient request if the prescription is for a schedule II opioid drug., 152, cm, 03/... Start Date: 04/08/21 Status: Ordered Sport[employer]ia COVID-19 Vaccine 30 mcg/0.3 mL preservative-free intramuscular [...] Replace Required Details, Route to Pharmacy Electronically, [id number], [facility], 149.86, cm, 12... Start Date: 10/15/21 Status: [...] oral tablet See Instructions, ASAD BURKETT DOS BRIAN AL JULIAN, # 60 tablet, 4 Refills, Maintenance, [facility] [id number], 152, cm, 11/06/20 10:17:00 EDT, Height, 81, [...]
--- OUTSIDE RECORDS SUMMARY | 2023-07-21 13:02 | XMS_ITS | Continuity of Care Document ---
Author Name Unknown Organization [facility] Address [address], [address], [address] [place] [address]- Care Team Providers Care Group Care Worker Name Role Phone Renato MORRISON, Milton Loyola Primary Care Physicia n Encounter [facility] Date(s): 09/07/22 - 10/07/22 [facility] [address], [address], [address] [place] [address]- Allergies, Adverse Reactions, Alerts Substance Reaction Severity Status traMADol tongue numbness--but she fell near loc Active Immunizations Given and Recorded Vaccine Date Status Refusal Reason [id number] bivalent booster vax 07/17/22 Given influenza virus [...] Patient Refuses 1Result Comment: NS DIL LOT [id number] EXP 11/2022 2Result Comment: DILUENT LOT#: [id number] EXP: 11/14 MFG: FRESENSIUS Medications albuterol 0.083% [...] = 5 mg, By Mouth, Daily, by [employer] records, # 30 tablet, 3 Refills, Maintenance, 07/04/22 11:38:00 EST, Tablet, [facility]/pharmacy #[id number], Partial fill upon patient request if the prescription is for a schedule II opioid drug., 149.8, cm, 07/04/22 11... Start Date: 07/04/22 Stop Date: 11/01/22 Status: Ordered Aspirin Low Dose 81 mg oral delayed release tablet See Instructions, ASAD BASHIR TABLETA MARIANNE MIRANDA by [employer] records continue, # 30 tablet, 11 Refills, 07/04/22 11:40:00 EST, [id number], 149.8, cm, 07/04/22 11:20:00 EST, Height, 83.3, kg, 06/14/22 18:50:00 EDT, Dry Weight Start Date: 07/04/22 Status: Ordered atorvastatin 10 mg oral tablet See Instructions, ASAD KRYSTEN TABLETA TOLOMAS MIRANDA, # 30 tablet, 11 Refills, 05/24/22 14:42:00 EDT, [id number], 149.86, cm, 05/24/22 13:53:00 EDT, Height, 85.7, kg, 07/24/21 14:26:00 EST, Dry Weight Start Date: 05/24/22 Status: Ordered BD Ultra-Fine pen needles, BERTRAM 4 mm x 32 G BD Ultra-Fine pen needles, BERTRAM 4 mm x 32 G, See Instructions, # 150 each, Refills 11, Tot. [id number], Maintenance, Use for times a days with [...] Compound Start Date: 07/25/21 Status: Ordered ergocalciferol 37165 iu oral capsule See Instructions, TOME 1 CAPSULA POR VIA ORAL ONCE WEEKLY, # 4 capsule, Refills 4, Tot. Refills 4, 05/24/22 14:29:00 EDT, Instructions Replace Required Details, Route to Pharmacy Electronically, [facility]/pharmacy #[id number], 149.86, cm, 05/24/22 13:53:00 EDT, H... Start Date: 05/24/22 Status: Ordered Escitalopram = 20 mg, By Mouth, Daily, 0 Refills, Maintenance, 05/13/19 15:46:32 EDT Start Date: 05/13/19 Status: Ordered Eucerin Plus topical lotion 1 application, Topically, 2 times a day, PRN for dry skin, # 600 mL, 1 Refills, Maintenance, 05/24/22 14:28:00 EDT, Lotion, [facility]/pharmacy #[id number], Partial fill upon patient request if [...] tablet, 0 Refills, Maintenance, 01/03/20 13:01:00 EDT, [facility]/pharmacy #[id number], 152, cm, 11/01/19 19:28:00 EDT, Height, 81, kg, 11/01/19 19:28:00 EDT,... Start Date: 01/03/20 Status: Ordered Insulin Lispro Scot KwikPen 100 units/mL injectable solution = 15 units, Subcutaneous Infusion, 3 times a day before meals, with breakfast and lunch rotate injection sites. stop novolog due insurance issues. in japanese, # 15 mL, 11 Refills, Maintenance, 08/12/22 12:49:00 EST, [facility]/pharmacy #[id number], Partial fill... Start Date: 08/12/22 Stop Date: 08/07/23 Status: Ordered Insulin Syringe, BD Ultra-Fine 0.3 [...] 09/15/24 12:17:00 EST, 09/21/23 12:17:00 EST, Solution, [facility]/pharmacy #[id number], 149.86, cm, 05/24/22 13:53:00 EDT, Height, 85.7, kg, 07/24/21 14:26:00 EST,... Start Date: 09/21/23 Stop Date: 09/15/24 Status: Ordered loratadine 10 mg oral tablet See Instructions, ASAD BURKETT TODOS LOS MIRANDA, # 30 tablet, Refills 5, Tot. Refills 5, 05/24/2214:42:00 EDT, Instructions Replace Required Details, Route to Pharmacy Electronically, [facility]/pharmacy#[id number], 149.86, cm, 05/24/22 13:53:00 EDT, Height, 8... Start Date: 05/24/22 Status: Ordered meclizine 25 mg oral tablet 1 tablet = 25 mg, By Mouth, 3 times a day, PRN for dizziness, # 30 tablet, 0 Refills, Maintenance, 05/31/22 13:26:00 EDT, Tablet, [facility]/pharmacy #[id number], Partial fill upon patient request if [...] 05/31/22 13:26:00 EDT, Route to Pharmacy Electronically, [facility]/pharmacy #[id number], 149.86, cm, 10... Start Date: 05/31/22 [...] Replace Required Details, Route to Pharmacy Electronically, [id number]... Start Date: 03/28/22 Status: Ordered Pulse Oximeter [...] JULIAN, # 60 tablet, 4 Refills, Maintenance, [facility] [id number], 152, cm, 11/06/20 10:17:00 EDT, Height, 81, [...] Care Nurse Name: Milton Gross NP Position: [facility] PCO Associate Professional Member Role: PCP Address: Address: [address] [place] [address]- Care Team Related Persons Name: YASMIN FISHER Address: home [address] [place] [address]
--- OUTSIDE RECORDS SUMMARY | 2023-07-21 13:02 | XMS_ITS | Continuity of Care Document ---
Author Name Unknown Organization [facility] Address [address] [place] [address]- Care Team Providers Care Chop Saw Operator Name Role Phone Renato MORRISON, Milton Loyola Primary Care Physicia n [id number] Date(s): 06/18/22 - 06/25/22 [facility] [address] [place] [address]- Attending Physician: Akhil Eastman MD Admitting Physician: [...] Patient Refuses 1Result Comment: NS DIL LOT [id number] EXP 11/2022 2Result Comment: DILUENT LOT#: [id number] EXP: 11/14 MFG: FRESENSIUS Medications albuterol 0.083% inhalation solution 3 mL = 2.5 mg, Inhalation, Every 6 hours, PRN for wheezing, # 25 each, 11 Refills, Maintenance, 05/24/22 14:28:00 EDT, Solution, [facility]/pharmacy #[id number], 149.86, [...] mg oral delayed release tablet See Instructions, PJSole BASHIR TABLETMackenzie MARIANNE MARCOS MIRANDA, # 30 tablet, 11 Refills, 05/24/22 14:42:00 EDT, [facility]/pharmacy #[id number], 149.86, cm, 05/24/22 13:53:00 EDT, Height, 85.7, kg, 07/24/21 14:26:00 EST, Dry Weight Start Date: 05/24/22 Status: Ordered atorvastatin 10 mg oral tablet See Instructions, ASAD KRYSTEN TABLETMackenzie LOPES MARCOS MIRANDA, # 30 tablet, 11 Refills, 05/24/22 14:42:00 EDT, [facility]/pharmacy #[id number], 149.86, cm, 05/24/22 13:53:00 EDT, Height, 85.7, kg, 07/24/21 14:26:00 EST, Dry Weight Start Date: 05/24/22 Status: Ordered BD Ultra-Fine pen needles, BERTRAM 4 mm x 32 G BD Ultra-Fine pen needles, BERTRAM 4 mm x 32 G, See Instructions, # 150 each, Refills 11, Tot. [id number], Maintenance, Use for times a days with [...] Compound Start Date: 07/25/21 Status: Ordered ergocalciferol 46873 iu oral capsule See Instructions, TOME 1 [...] Replace Required Details, Route to Pharmacy Electronically, [id number]... Start Date: 03/28/22 Status: Ordered sulindac 200 mg oral tablet 1 tablet = 200 mg, By Mouth, 2 times a day, # 60 tablet, 2 Refills, Maintenance, 05/24/22 14:29:00 EDT, Tablet, [facility]/pharmacy #[id number], Partial fill upon patient request if the prescription is for a schedule II opioid drug., 149.86, cm, 05/24/22 13:53:00... Start Date: 05/24/22 Status: Ordered Vitamin B2 100 mg oral tablet See Instructions, ASAD LEZAMA AL JULIAN, # 60 tablet, 4 Refills, Maintenance, [facility] [id number], 152, cm, 11/06/20 10:17:00 EDT, Height, 81, [...] on: 06/14/22 Sex Patient Care team information Personnel Name: Milton Gross NP Address: Address: [address] [place] [address]
--- OUTSIDE RECORDS SUMMARY | 2023-07-21 13:02 | XMS_ITS | Continuity of Care Document ---
Author Name Unknown Organization [facility] Address [address] [place] [address]- Care Team Providers Care Guest Service Host Name Role Phone Milton Gross NP Primary Care Physicia n Encounter [facility] Date(s): 11/01/19 - 11/08/19 [facility] [address] [place] [address]- [facility] Attending Physician: Manny DINERO, Yuan Bowden Referring Physician: Milton Gross NP Allergies, Adverse [...] 18:58:54 EDT, Aerosol, Route to Pharmacy Electronically, [id number], [facility]/pharmacy #[id number], Compound Start Date: 11/02/18 Status: [...] 11/02/18 18:58:53 EDT, Route to Pharmacy Electronically, [id number], [facility]/pharmacy #[id number] Start Date: 11/02/18 Status: Ordered BD Ultra-Fine pen needles, BERTRAM 4 mm x 32 G BD Ultra-Fine pen needles, BERTRAM 4 mm x 32 G, See Instructions, # 150 each, Refills 11, Tot. [id number], Maintenance, Use for times a days with [...] 11/02/18 18:58:54 EDT, Route to Pharmacy Electronically, [id number], [facility]/pharmacy #[id number] Start Date: 11/02/18 Stop Date: [...] 11/01/19 16:17:00 EDT, Route to Pharmacy Electronically, [facility]/pharmacy #[id number], 152, cm, 10/22/19 15:02:00 EST, [...] Stop 01/20/20 12:40:00 EDT, 10/22/19 12:40:00 EST, [facility]/pharmacy #[id number], 152, c... Start Date: 10/22/19 Stop [...] oldest [Reference Range]: 1 Height 152 cm (11/01/19 7:28 PM) Weight 81.0 kg (11/01/19 7:28 PM) Oxygen Saturation [94-100 %] 100 % (11/01/19 7:28 PM) Pulse Rate [55-90 bpm] 88 bpm (11/01/19 7:28 PM) Body Mass Index [18.5-24.99] 35.06 *>HHI* (11/01/19 7:28 PM) Blood Pressure [90-138/55-84 mm Hg] 145/ 90mm Hg *H* (11/01/19 7:28 PM) Respiratory Rate [16-30 br/min] 24 br/mi n (11/01/19 7:28 PM) Temperature [96.8-100.4 DegF] 98.1 DegF (11/01/19 7:28 PM) Mode of Delivery (Oxygen) Room air (11/01/19 7:28 PM) Blood pressure sites Arm, left (11/01/19 7:28 PM) Temperature Route Oral (11/01/19 7:28 PM) Dry Weight 81.0 kg (11/01/19 7:28 PM) Weight Obtained Via Standing scale (11/01/19 7:28 PM) Dry Weight Obtained Via Standing scale (11/01/19 7:28 PM) Social History Social History Type Response Smoking Status Never smoker; Tobacc o user in household: No; Type: Cigarettes entered on: 11/07/14 Sex
--- OUTSIDE RECORDS SUMMARY | 2023-07-21 13:03 | XMS_ITS | Continuity of Care Document ---
Author Name Unknown Organization [facility] Address [address] [place] [address]- Care Team Providers Care Oil Driller Name Role Phone Renato MORRISON, Milton Loyola Primary Care Physicia n Encounter [facility] Date(s): 06/14/22 - 06/15/[address] [address]- Discharge Disposition: A-D/C Home Attending Physician: Akhil Eastman MD Admitting Physician: [...] Patient Refuses 1Result Comment: NS DIL LOT [id number] EXP 11/2022 2Result Comment: DILUENT LOT#: [id number] EXP: 11/14 MFG: FRESENSIUS Medications acetaminophen 325 mg oral tablet 650 mg, 2, tablet, By Mouth, Every 4 hours, for 7 days, # 84 tablet, Refills 0, Tot. Refills 0, Acute 06/22/22 10:53:00 EDT, 06/15/22 10:53:00 EDT, Route to Pharmacy Electronically, [facility], Partial fill upon patient request if the pr... Start Date: 06/15/22 Stop Date: 06/22/22 Status: Ordered albuterol 0.083% inhalation solution 3 mL = 2.5 mg, Inhalation, Every 6 hours, PRN for wheezing, # 25 each, 11 Refills, Maintenance, 05/24/22 14:28:00 EDT, Solution, [facility]/pharmacy #[id number], 149.86, cm, 05/24/22 13:53:00 EDT, [...] mg oral delayed release tablet See Instructions, PJE KRYSTEN TABLETA TOS MARCOS MIRANDA, # 30 tablet, 11 Refills, 05/24/22 14:42:00 EDT, [facility]/pharmacy #[id number], 149.86, cm, 05/24/22 13:53:00 EDT, Height, 85.7, kg, 07/24/21 14:26:00 EST, Dry Weight Start Date: 05/24/22 Status: Ordered atorvastatin 10 mg oral tablet See Instructions, TOME KRYSTEN TABLETA TODOS LOS MIRANDA, # 30 tablet, 11 Refills, 05/24/22 14:42:00 EDT, [id number], 149.86, cm, 05/24/22 13:53:00 EDT, Height, 85.7, kg, 07/24/21 14:26:00 EST, Dry Weight Start Date: 05/24/22 Status: Ordered BD Ultra-Fine pen needles, BERTRAM 4 mm x 32 G BD Ultra-Fine pen needles, BERTRAM 4 mm x 32 G, See Instructions, # 150 each, Refills 11, Tot. [id number], Maintenance, Use for times a days with [...] Compound Start Date: 07/25/21 Status: Ordered ergocalciferol 66914 iu oral capsule See Instructions, TOME 1 CAPSULA POR VIA ORAL ONCE WEEKLY, # 4 capsule, Refills 4, Tot. Refills 4, 05/24/22 14:29:00 EDT, Instructions Replace Required Details, Route to Pharmacy Electronically, [facility]/pharmacy #[id number], 149.86, cm, 05/24/22 13:53:00 EDT, H... Start Date: 05/24/22 Status: Ordered Escitalopram = 20 mg, By Mouth, Daily, 0 Refills, Maintenance, 05/13/19 15:46:32 EDT Start Date: 05/13/19 Status: Ordered Eucerin Plus topical lotion 1 application, Topically, 2 times a day, PRN for dry skin, # 600 mL, 1 Refills, Maintenance, 05/24/22 14:28:00 EDT, Lotion, [facility]/pharmacy #[id number], Partial fill [...] 15 Unknown, 5 Refills, 05/24/22 14:29:00 EDT, [facility]/pharmacy #[id number], 149.86, cm, 05/24/22 13:53:00 EDT, Height, 85.7, kg, 07/24/21 14:26:00 EST, Dry Weight Start Date: 05/24/22 Status: Ordered ibuprofen 600 mg oral tablet 600 mg, 1, tablet, By Mouth, 3 times a day, PRN, for 7 days, # 40 tablet, Refills 0, Tot. Refills 0, Acute 06/22/22 10:53:00 EDT, Pain , Mild, 06/15/22 10:53:00 EDT, Route to Pharmacy Electronically,[facility], Partial fill upon patient... Start [...] 09/15/24 12:17:00 EST, 09/21/23 12:17:00 EST, Solution, [facility]/pharmacy #[id number], 149.86, cm, 05/24/22 13:53:00 EDT, Height, 85.7, kg, 07/24/21 14:26:00 EST,... Start Date: 09/21/23 Stop Date: 09/15/24 Status: Ordered loratadine 10 mg oral tablet See Instructions, ASAD SHAWA TODOS LOS MIRANDA, # 30 tablet, Refills 5, Tot. Refills 5, 05/24/2214:42:00 EDT, Instructions Replace Required Details, Route to Pharmacy Electronically, [facility]/pharmacy#[id number], 149.86, cm, 05/24/22 13:53:00 EDT, Height, 8... Start Date: 05/24/22 Status: Ordered meclizine 25 mg oral tablet 1 tablet = 25 mg, By Mouth, 3 times a day, PRN for dizziness, # 30 tablet, 0 Refills, Maintenance, 05/31/22 13:26:00 EDT, Tablet, [facility]/pharmacy #[id number], Partial fill [...] 05/31/22 13:26:00 EDT, Route to Pharmacy Electronically, [facility]/pharmacy #[id number], 149.86, cm, 10... Start Date: 05/31/22 Stop Date: 05/26/23 Status: Ordered ProAir HFA 90 mcg/inh inhalation aerosol with adapter See Instructions, INHALE 2 PUFFS CADA CUATRO HORAS CUANDO SEA NECESARIO FOR WHEEZING, # 8.5 each, Refills 5, Tot. Refills 5, 03/28/22 11:21:00 EDT, Instructions Replace Required Details, Route to Pharmacy Electronically, [id number]... Start Date: 03/28/22 Status: Ordered sulindac 200 mg oral tablet 1 tablet = 200 mg, By Mouth, 2 times a day, # 60 tablet, 2 Refills, Maintenance, 05/24/22 14:29:00 EDT, Tablet, [facility]/pharmacy #[id number], Partial fill upon patient request if the prescription is for a schedule II opioid drug., 149.86, cm, 05/24/22 13:53:00... Start Date: 05/24/22 Status: Ordered Vitamin B2 100 mg oral tablet See Instructions, TOME KRYSTEN TABLETA DOS VECES AL JULIAN, # 60 tablet, 4 Refills, Maintenance, [facility] [id number], 152, cm, 11/06/20 10:17:00 EDT, Height, 81, [...] recent to oldest [Reference Range]: 1 2 3 Height 149.8 cm (06/15/22 12:04 PM) 149.8 cm (06/15/22 7:31 AM) 149.8 cm (06/15/22 5:07 AM) Weight 83.3 kg (06/14/22 6:39 PM) 81.8 kg (06/14/22 11:36 AM) 81.8 kg (06/12/22 3:58 PM) Oxygen Saturation [94-100 %] 97 % (06/15/22 12:04 PM) 94 % (06/15/22:31 AM) 100 % (06/15/22 5:07 AM) Pulse Rate [55-90 bpm] 95 bpm *H* (06/15/22 12:04 PM) 81 bpm (06/15/22 7:31 AM) 80 bpm (06/15/22 5:07 AM) Body Mass Index [18.5-24.99 kg/m2] 37.12 kg/m2 *>HHI* (06/14/22 6:39 PM) 36.45 kg/m2 *>HHI* (06/14/22 11:36 AM) 36.45 kg/m2 *>HHI* (06/12/22 3:58 PM) Blood Pressure [90-138/55-84 mm Hg] 117/75mm Hg (06/15/22 12:04 PM) 130/70mm Hg (06/15/22 7:31 AM) 122/64mm Hg (06/15/22 5:07 AM) Respiratory Rate [16-30 br/min] 18 br/min (06/15/22 12:04 PM) 18 br/min (06/15/22:31 AM) 18 br/min (06/15/22 5:07 AM) Temperature [96.8-100.4 DegF] 98.0 DegF (06/15/22 12:04 PM) 98.0 DegF (06/15/22 7:31 AM) 97.9 DegF (06/15/22 5:07 AM) Liters per Minute 2 L/min (06/15/22 12:04 PM) 5 L/min (06/14/22 10:59 PM) 5 L/min (06/14/22 8:36 PM) Mode of Delivery (Oxygen) Nasal cannula (06/15/22 12:04 PM) Room air (06/15/22 7:31 AM) CPAP (06/15/22 5:07 AM) Blood pressure sites Arm, left (06/15/22 12:04 PM) Arm, left (06/15/22 7:31 AM) Arm, left (06/15/22 5:07 AM) Temperature Route Oral (06/15/22 12:04 PM) Oral (06/15/22 7:31 AM) Oral (06/15/22 5:07 AM) Dry Weight 83.3 kg (06/14/22 6:39 PM) 81.8 kg (06/14/22 11:36 AM) 81.8 kg (06/12/22 3:58 PM) Weight Obtained Via Bed scale (06/14/22 6:39 PM) Bed scale (06/14/22 11:36 AM) Patient/family stated (06/12/22 3:58 PM) Dry Weight Obtained Via Bed scale (06/14/22 6:39 PM) Bed scale (06/14/22 11:36 AM) Patient/family stated (06/12/22 3:58 PM) Social History Social History Type Response Smoking Status Never (less than 100 in lifetime) entered on: 06/14/22 Sex Patient Care team information Personnel Name: Milton Gross NP Address: Address: [address] [place], [place] [address]
--- OUTSIDE RECORDS SUMMARY | 2023-07-21 13:03 | XMS_ITS | Continuity of Care Document ---
Author Name Unknown Organization [facility] Address Unknown Care Team Providers Care Product Architect Name Role Phone Renato MORRISON, Milton Loyola Primary Care Physicia n Encounter [facility] Date(s): 09/11/21 - 10/11/21 [facility] Allergies, Adverse Reactions, Alerts Substance Reaction Severity [...] Patient Refuses 1Result Comment: NS DIL LOT [id number] EXP 11/2022 2Result Comment: DILUENT LOT#: [id number] EXP: 11/14 MFG: FRESENSIUS Medications albuterol 0.083% [...] 12:25:00 EST, Aerosol, Route to Pharmacy Electronically, [id number], [facility]/pharmacy #[id number], 152, cm, 06/01/20 9:54:00 EDT, Hei... [...] 12:25:00 EST, Route to Pharmacy Electronically, [facility]/pharmacy #[id number], 152, cm, 06/01/20 9:54:00 EDT, Height, 81, kg, 11/01/19 19:28:00 EDT, Dry Weight Start Date: 10/06/20 Status: Ordered atorvastatin 10 mg oral tablet 1 tablet = 10 mg, By Mouth, Daily, # 30 tablet, 5 Refills, Maintenance, 05/05/21 11:03:00 EDT, [facility]/pharmacy #[id number], Partial fill upon patient request if the prescription is for a schedule II opioid drug., 152, cm, 04/18/21 13:24:00 EDT, Height, 85.2, k... Start Date: 05/05/21 Stop Date: 11/01/21 Status: Ordered BD Ultra-Fine pen needles, BERTRAM 4 mm x 32 G BD Ultra-Fine pen needles, BERTRAM 4 mm x 32 G, See Instructions, # 150 each, Refills 11, Tot. [id number], Maintenance, Use for times a days with [...] Mouth, 2 times a day, with food Bolivian label, # 60 tablet, 3 Refills, Maintenance, 07/24/21 15:01:00 EST, [facility]/pharmacy #[id number], Partial fill upon patient request if the prescription is for a schedule II opioid drug., 152, cm, 06/27... Start Date: 07/24/21 Stop Date: 11/21/21 Status: Ordered ergocalciferol 36469 iu oral capsule See Instructions, TOME 1 CAPSULA POR VIA ORAL ONCE WEEKLY, # 4 capsule, Refills 4, Instructions Replace Required Details, Route to Pharmacy Electronically, [id number], 149.86, cm, 08/15/21 11:29:00 EST, Height, 85.7, kg, 07/24/21 14:26:00 EST, Start Date: 09/24/21 Status: Ordered Escitalopram = 20 mg, By Mouth, Daily, 0 Refills, Maintenance, 05/13/19 15:46:32 EDT Start Date: 05/13/19 Status: Ordered Eucerin Plus topical lotion 1 application, Topically, 2 times a day, PRN for dry skin, # 600 mL, 1 Refills, Maintenance, 06/01/21 13:51:00 EDT, Lotion, [facility]/pharmacy #[id number], Partial fill upon patient request if [...] 11 Refills, Maintenance, 05/04/21 14:14:00 EDT, Solution, [facility]/pharmacy #[id number], Partial fill upon patient request if the prescription is for a schedule II opio... Start Date: 05/04/21 Status: Ordered Imitrex 50 mg oral tablet See Instructions, 1 tablet By Mouth at onset of headache. May repeat once in 2 hours. Not > 4/ week., # 9 tablet, 0 Refills, Maintenance, 01/03/20 13:01:00 EDT, [facility]/pharmacy #[id number], 152, cm, 11/01/19 19:28:00 EDT, Height, [...] 09/26/22 12:17:00 EST, 10/01/21 12:17:00 EST, Solution, [facility]/pharmacy #[id number], 152, cm, 05/04/21 13:50:00 EDT, Height, 85.2, kg, 04/18/21 13:24:00 EDT, Dry... Start Date: 10/01/21 Stop Date: 09/26/22 Status: Ordered loratadine 10 mg oral tablet See Instructions, ASAD SHAWA TODOS LOS MIRANDA, # 30 tablet, Refills 5, Instructions Replace Required Details, Route to Pharmacy Electronically, [id number], 149.86, cm, 08/15/21 11:29:00 EST,Height, 85.7, kg, 07/24/21 14:26:00 EST, Dry Weight Start Date: 09/27/21 Status: Ordered meclizine 25 mg oral tablet 1 tablet = 25 mg, By Mouth, 3 times a day, PRN for dizziness, # 30 tablet, 0 Refills, Maintenance, 04/08/21 22:48:00 EDT, Tablet, [facility]/pharmacy #[id number], Partial fill upon patient request if [...] 16:17:00 EST, Route to Pharmacy Electronically, [facility]/pharmacy #[id number], 152, cm, 06/01... Start Date: 10/26/20 Stop Date: 10/21/21 Status: Ordered Intransa COVID-19 Vaccine 30 mcg/0.3 mL preservative-free intramuscular [...] # 60 tablet, 4 Refills, Maintenance, [facility] [id number], 152, cm, 11/06/20 10:17:00 EDT, Height, 81, [...]
--- OUTSIDE RECORDS SUMMARY | 2023-07-21 13:03 | XMS_ITS | Continuity of Care Document ---
Author Name Unknown Organization [facility] Address [address] [place] [address]- Care Team Providers Care Dressage Judge Name Role Phone Milton Gross NP Primary Care Physicia n Encounter [facility] Date(s): 01/06/23 - 02/05/[address] [address]- Allergies, Adverse Reactions, Alerts Substance Reaction Severity Status traMADol tongue numbness--but she fell near [facility] Active Immunizations Given and Recorded Vaccine Date Status Refusal Reason [id number] bivalent booster vax 07/17/22 Given influenza virus [...] Patient Refuses 1Result Comment: NS DIL LOT [id number] EXP 11/2022 2Result Comment: DILUENT LOT#: [id number] EXP: 11/14 MFG: FRESENSIUS Medications albuterol 0.083% [...] = 5 mg, By Mouth, Daily, by [facility]. Follow speciality, # 30 tablet, 2 Refills, Maintenance, 03/06/23 16:52:00 EDT, Tablet, [id number], Partial fill upon patient request if theprescription is for a schedule II opioid drug., 145... Start Date: 03/06/23 Stop Date: 06/04/23 Status: Ordered apixaban 5 mg oral tablet 1 tablet = 5 mg, By Mouth, Daily, for 30 days, by [facility], # 30 tablet, 2 Refills, Hard Stop 03/06/23 16:52:00 EDT, 12/06/22 16:52:00 EDT, Tablet, [id number], Partial fill upon patient request if the prescription is for a schedule II opi... Start Date: 12/06/22 Stop Date: 03/06/23 Status: Ordered Aspirin Low Dose 81 mg oral delayed release tablet See Instructions, ASAD SHAWA TODOS LOS MIRANDA by [facility] continue, # 30 tablet, 11 Refills, 07/04/22 11:40:00 EST, [id number], 149.8, cm, 07/04/22 11:20:00 EST, Height, 83.3, kg, 06/14/22 18:50:00 EDT, Dry Weight Start Date: 07/04/22 Status: Ordered atorvastatin 10 mg oral tablet See Instructions, ASAD SHAWA TODOS [place] MIRANDA, # 30 tablet, 11 Refills, 05/24/22 14:42:00 EDT, [id number], 149.86, cm, 05/24/22 13:53:00 EDT, Height, 85.7, kg, 07/24/21 14:26:00 EST, Dry Weight Start Date: 05/24/22 Status: Ordered BD Ultra-Fine pen needles, BERTRAM 4 mm x 32 G BD Ultra-Fine pen needles, BERTRAM 4 mm x 32 G, See Instructions, # 150 each, Refills 11, Tot. [id number], Maintenance, Use for times a days with [...] Compound Start Date: 07/25/21 Status: Ordered ergocalciferol 10310 iu oral capsule 1, capsule, By Mouth, Every week, # 4 capsule, Refills 4, Maintenance, 10/22/22 15:42:00 EST, [facility] Electronically, [id number], 149.8, cm, 07/22/22 9:38:00 EST, Height, 83.3, kg, 06/14/22 18:50:00 EDT, Dry Weight Start Date: 10/22/22 Status: Ordered Escitalopram = 20 mg, By Mouth, Daily, 0 Refills, Maintenance, 05/13/19 15:46:32 EDT Start Date: 05/13/19 Status: Ordered Eucerin Plus topical lotion 1 application, Topically, 2 times a day, PRN for dry skin, # 600 mL, 11 Refills, Maintenance, 01/17/23 13:42:00 EDT, Lotion, [facility]/pharmacy #[id number], Partial fill upon patient request if the prescription is for a schedule II opioid drug., 1 application Top... Start Date: 01/17/23 Stop Date: 01/12/24 Status: Ordered Eucerin Plus topical lotion 1 application, Topically, 2 times a day, PRN for dry skin, # 600 mL, 1 Refills, Maintenance, 05/24/22 14:28:00 EDT, Lotion, [facility]/pharmacy #[id number], Partial fill upon patient request [...] sites. stop novolog due insurance issues. in [place], # 15 mL, 11 Refills, Hard Stop 08/07/23 12:49:00 EST, 08/12/22 12:49:00 EST,... Start Date: 08/12/22 Stop Date: 08/07/23 Status: Ordered Insulin Lispro Scot KwikPen 100 units/mL injectable solution = 15 units, Subcutaneous Infusion, 3 times a day before meals, with breakfast and lunch rotate injection sites. stop novolog due insurance issues. in [place], # 15 mL, 11 Refills, Maintenance, 08/07/23 [...] BURKETT TOGARCES, # 30 tablet, Refills 5, Tot. Refills 5, 05/24/2214:42:00 EDT, Instructions Replace Required Details, Route to Pharmacy Electronically, [facility]/pharmacy#[id number], 149.86, cm, 05/24/22 13:53:00 EDT, Height, 8... Start Date: 05/24/22 Status: Ordered meclizine 25 mg oral tablet 1 tablet = 25 mg, By Mouth, 3 times a day, PRN for dizziness, # 30 tablet, 0 Refills, Maintenance, 05/31/22 13:26:00 EDT, Tablet, [facility]/pharmacy #[id number], Partial fill upon patient request [...] 05/31/22 13:26:00 EDT, Route to Pharmacy Electronically, [facility]/pharmacy #[id number], 149.86, cm, 10... Start Date: [...] Replace Required Details, Route to Pharmacy Electronically, [id number]... Start Date: 01/17/23 Status: Ordered Pulse Oximeter [...] JULIAN, # 60 tablet, 4 Refills, Maintenance, [facility] [id number], 152, cm, 11/06/20 10:17:00 EDT, Height, 81, kg, 11/01/19 19:28:00 EDT, Dry Weight Start Date: 03/07/21 Status: Ordered Zithromax 250 mg oral tablet 1 pack/packet, By Mouth, Once, # 6 tablet, 0 Refills, Soft Stop, 01/05/23 23:08:00 EDT, Tablet, [facility]/pharmacy #[id number], Partial fill upon patient request if the [...] Team Personnel Name: Javid AGUILAR, Jesika Position: S RN Member Role: Primary Care Nurse Name: Milton Gross NP Position: [facility] PCO Associate Professional Member Role: PCP Address: Address: [address] [place] [address]- Care Team Related Persons Name: YASMIN FISHER Address: home [address] [place] [address]
--- OUTSIDE RECORDS SUMMARY | 2023-07-21 13:03 | XMS_ITS | Continuity of Care Document ---
Author Name Unknown Organization [facility] Address [address] [place] [address]- Care Team Providers Care Hunting Sales Leader Name Role Phone Milton Gross NP Primary Care Physicia n Encounter [facility] Date(s): 01/01/21 - 01/31/[address] [address]- Allergies, Adverse Reactions, Alerts Substance Reaction Severity Status traMADol tongue numbness--but she fell near [facility] Active Immunizations Given and Recorded Vaccine [...] 12:25:00 EST, Aerosol, Route to Pharmacy Electronically, [id number], [facility]/pharmacy #[id number], 152, cm, 06/01/20 9:54:00 EDT, [...] 10/06/20 12:25:00 EST, Route to Pharmacy Electronically, [facility]/pharmacy #[id number], 152, cm, 06/01/20 9:54:00 EDT, Height, 81, kg, 11/01/19 19:28:00 EDT, Dry Weight Start Date: 10/06/20 Status: Ordered atorvastatin 10 mg oral tablet 1 tablet = 10 mg, By Mouth, Daily, # 30 tablet, 5 Refills, Maintenance, 11/06/20 11:03:00 EDT, [facility]/pharmacy #[id number], Partial fill [...] 0 Refills, Maintenance, 12/14/20 11:40:00 EDT, Tablet, [facility]/pharmacy #[id number], Partial fill upon patient request if the prescription is for a schedule II opioid drug., 152, cm,... Start Date: 12/14/20 Stop Date: 12/28/20 Status: Ordered BD Ultra-Fine pen needles, BERTRAM 4 mm x 32 G BD Ultra-Fine pen needles, BERTRAM 4 mm x 32 G, See Instructions, # 150 each, Refills 11, Tot. [id number], Maintenance, Use for times a days with insulin. DM E119, 10/06/20 12:18:00 EST, Compound, 152, cm, 06/01/20 9:54:00 EDT, Height, 81, kg, 11/01/19 1... Start Date: 10/06/20 Status: Ordered BENGAY Arthritis topical cream See Instructions, rub into areas of pain and muscle tightness; instructions in Macedonian, # 1 each, 2Refills, Maintenance, 12/14/20 11:39:00 EDT, [facility]/pharmacy #[id number], Partial fill [...] 11/28/20 10:24:00 EDT, Route to Pharmacy Electronically, [facility]/pharmacy #[id number], 152, cm, 06/01/20 9:54:00 EDT, [...] 11 Refills, Maintenance, 10/06/20 12:22:00 EST, Lotion, [facility]/pharmacy #[id number], 1 application Topically 2 times [...] mL, 11 Refills, Maintenance, 10/06/20 12:20:00 EST, [facility]/pharmacy #[id number], 152, cm, 06/01/20 9:54:00 EDT, [...] 02/20/21 9:48:00 EDT, Route to Pharmacy Electronically, [facility]/pharmacy #[id number], 152, cm, 06/01/20 9:54:00 EDT, [...] EDT, Height, 81, kg, 03... Start Date: 08/24/20 Stop Date: 02/20/21 Status: Ordered meclizine 25 mg oral tablet See Instructions, TOME KRYSTEN TABLETA POR VIA ORAL GIBRAN VECES AL JULIAN CUANDO SEA NECESARIO DIZZINESS, #50 tablet, 1 Refills, Acute, [id number], 152, cm, 11/06/20 10:17:00 EDT, Height, 81, kg, 11/01/19 19:28:00 EDT, Dry Weight Start Date: 12/07/20 Status: Ordered metoprolol 25 mg oral tablet 25 mg, 1, tablet, By Mouth, 2 times a day, for 90 days, This is an increase in dose., # 180 tablet,Refills 3, Tot. Refills 3, Hard Stop 10/21/21 16:17:00 EST, 10/26/20 16:17:00 EST, Route to Pharmacy Electronically, [facility]/pharmacy #[id number], 152, cm, 06/01... Start Date: 10/26/20 Stop Date: 10/21/21 Status: Ordered riboflavin 100 mg oral tablet 1 tablet = 100 mg, By Mouth, 2 times a day, # 60 tablet, 4 Refills, Maintenance, 10/06/20 12:25:00 EST, [facility]/pharmacy #[id number], 152, cm, 06/01/20 9:54:00 EDT, Height, 81, kg, 11/01/19 19:28:00 EDT, Dry Weight Start Date: 10/06/20 Stop Date: 03/05/21 Status: Ordered sulindac 200 mg oral tablet 1 tablet = 200 mg, By Mouth, 2 times a day, # 60 tablet, 2 Refills, Maintenance, 12/14/20 11:44:00 EDT, Tablet, [facility]/pharmacy #[id number], Partial fill upon patient request if the prescription is for a schedule II opioid drug., 152, cm, 11/06/20 10:17:00 EDT... Start Date: 12/14/20 Status: Ordered Vitamin D3 1000 intl units oral tablet 1 tablet = 1,000 International_Units, By Mouth, Daily, # 30 tablet, 11 Refills, Maintenance, 10/06/20 12:25:00 EST, Tablet, [facility]/pharmacy #[id number], 152, cm, 06/01/20 9:54:00 EDT, [...]
--- OUTSIDE RECORDS SUMMARY | 2023-07-21 13:03 | XMS_ITS | Continuity of Care Document ---
Author Name Unknown Organization [facility] Address [address] [place] [address]- Care Team Providers Care Potato Chip Packaging Machine Operator Name Role Phone Renato MORRISON, Milton Loyola Primary Care Physicia n Encounter [facility] Date(s): 10/13/20 - 11/12/[address] [address]- Allergies, Adverse Reactions, Alerts Substance Reaction Severity Status traMADol tongue numbness--but she fell near [facility] Active Immunizations Given and Recorded Vaccine [...] 12:25:00 EST, Aerosol, Route to Pharmacy Electronically, [id number], [facility]/pharmacy #[id number], 152, cm, 06/01/20 9:54:00 EDT, Hei... [...] 10/06/20 12:25:00 EST, [id number] 152, cm, 06/01/20 9:54:00 EDT, Height, 81, kg, 11/01/19 19:28:00 EDT, Dry Weight Start Date: 10/06/20 Status: Ordered atorvastatin 10 mg oral tablet 1 tablet = 10 mg, By Mouth, Daily, # 30 tablet, 5 Refills, Maintenance, 11/06/20 11:03:00 EDT, [facility]/pharmacy #[id number], Partial fill upon patient request if the prescription is for a schedule II opioid drug., 152, cm, 11/06/20 10:17:00 EDT, Height, 81, kg,... Start Date: 11/06/20 Stop Date: 05/05/21 Status: Ordered BD Ultra-Fine pen needles, BERTRAM 4 mm x 32 G BD Ultra-Fine pen needles, BERTRAM 4 mm x 32 G, See Instructions, # 150 each, Refills 11, Tot. [id number], Maintenance, Use for times a days with [...] 11/28/20 10:24:00 EDT, [id number] 152, cm, 06/01/20 9:54:00 EDT, Height, 81, kg, 10/31... Start Date: 11/28/20 Stop Date: 05/27/21 Status: Ordered Colace sodium 100 mg oral capsule 100 mg, 1, capsule, By Mouth, 2 times a day, PRN, for 30 days, # 60 capsule, Refills 5, Tot. Refills 5, Hard Stop 11/28/20 10:24:00 EDT, for constipation, 06/01/20 10:24:00 EDT, [id number] 152, cm, 06/01/20 9... Start [...] 11 Refills, Maintenance, 10/06/20 12:22:00 EST, Lotion, [facility]/pharmacy #[id number], 1 application Topically 2 times a [...] 11 Refills, Maintenance, 10/06/20 12:21:00 EST, Solution, [facility]/pharmacy #[id number], Partial fill upon patient request if the prescription is for a schedule II opio... Start Date: 10/06/20 Status: Ordered HumaLOG KwikPen 100 units/mL injectable solution = 15 units, Subcutaneous Infusion, 3 times a day before meals, Dx E11.9. D/C admelog same dose 15 units . give kwik pen, # 15 mL, 11 Refills, Maintenance, 10/06/20 12:20:00 EST, [facility]/pharmacy #[id number], 152, cm, 06/01/20 9:54:00 EDT, Height, 81, kg, ... Start Date: 10/06/20 Stop Date: 10/01/21 Status: Ordered Imitrex 50 mg oral tablet See Instructions, 1 tablet By Mouth at onset of headache. May repeat once in 2 hours. Not > 4/ week., # 9 tablet, 0 Refills, Maintenance, 01/03/20 13:01:00 EDT, [facility]/pharmacy #[id number], 152, cm, 11/01/19 19:28:00 EDT, Height, [...] 10/01/21 12:17:00 EST, 10/06/20 12:17:00 EST, Solution, [facility]/pharmacy #[id number], 152, cm, 06/01/20 9:54:00 EDT, Height, 81, kg, 11/01/19 19:28:00 EDT, Dry We... Start Date: 10/06/20 Stop Date: 10/01/21 Status: Ordered loratadine 10 mg oral tablet 10 mg, 1, tablet, By Mouth, Daily, # 30 tablet, Refills 5, Tot. Refills 5, Maintenance, 02/20/21 9:48:00 EDT, Route to Pharmacy Electronically, [facility]/pharmacy #[id number], 152, cm, 06/01/20 9:54:00 EDT, Height, [...] 10/26/20 16:17:00 EST, Route to Pharmacy Electronically, [facility]/pharmacy #[id number], 152, cm, 06/01... Start Date: 10/26/20 Stop Date: 10/21/21 Status: Ordered mupirocin 2% topical ointment 1 application, Topically, 3 times a day, for 10 days, # 22 Gm, 1 Refills, Acute 11/15/20 12:24:00 EDT, 10/26/20 12:24:00 EST, Ointment, [facility]/pharmacy #[id number], Partial fill upon patient request if the prescription is for a schedule II opioid drug., 1 appl... Start Date: 10/26/20 Stop Date: 11/15/20 Status: Ordered riboflavin 100 mg oral tablet 1 tablet = 100 mg, By Mouth, 2 times a day, # 60 tablet, 4 Refills, Maintenance, 10/06/20 12:25:00 EST, [facility]/pharmacy #[id number], 152, cm, 06/01/20 9:54:00 EDT, Height, 81, kg, 11/01/19 19:28:00 EDT, Dry Weight Start Date: 10/06/20 Stop Date: 03/05/21 Status: Ordered sulindac 200 mg oral tablet 1 tablet = 200 mg, By Mouth, 2 times a day, # 60 tablet, 2 Refills, Maintenance, 11/06/20 11:08:00 EDT, Tablet, [facility]/pharmacy #[id number], Partial fill upon patient request if the prescription is for a schedule II opioid drug., 152, cm, 11/06/20 10:17:00 EDT... Start Date: 11/06/20 Status: Ordered Vitamin D3 1000 intl units oral tablet 1 tablet = 1,000 International_Units, By Mouth, Daily, # 30 tablet, 11 Refills, Maintenance, 10/06/20 12:25:00 EST, Tablet, [facility]/pharmacy #[id number], 152, cm, 06/01/20 9:54:00 EDT, Height, [...]
--- OUTSIDE RECORDS SUMMARY | 2023-07-21 13:03 | XMS_ITS | Continuity of Care Document ---
Author Name Unknown Organization [facility] Address [address], [address], [address] [place] [address]- Care Team Providers Care Instrumentation Specialist Name Role Phone Renato MORRISON, Milton Loyola Primary Care Physicia n Encounter [facility] [place] ACCT R [id number] Date(s): 04/04/20 - 05/04/20 [facility] [address], [address], [address] [place] [address] [facility] Attending Physician: Jimenez Grant Admitting [...] Stop 10/16/20 12:40:00 EST, 10/22/19 12:40:00 EST, [facility]/pharmacy #[id number]... Start Date: 10/22/19 Stop Date: [...] 18:58:54 EDT, Aerosol, Route to Pharmacy Electronically, [id number], [facility]/pharmacy #[id number], Compound Start Date: 11/02/18 Status: [...] 11/02/18 18:58:53 EDT, Route to Pharmacy Electronically, [id number], [facility]/pharmacy #[id number] Start Date: 11/02/18 Status: Ordered BD Ultra-Fine pen needles, BERTRAM 4 mm x 32 G BD Ultra-Fine pen needles, BERTRAM 4 mm x 32 G, See Instructions, # 150 each, Refills 11, Tot. [id number], Maintenance, Use for times a days with [...] 11/02/18 18:58:54 EDT, Route to Pharmacy Electronically, [id number], [facility]/pharmacy #[id number] Start Date: 11/02/18 Stop Date: [...] tablet, 0 Refills, Maintenance, 01/03/20 13:01:00 EDT, [facility]/pharmacy #[id number], 152, cm, 11/01/19 [...] 01/18/20 9:31:00 EDT, Route to Pharmacy Electronically, [facility]/pharmacy #[id number], 152, cm, 11/01/19 [...] 11/01/19 16:17:00 EDT, Route to Pharmacy Electronically, [facility]/pharmacy #[id number], 152, cm, 10/22/19 15:02:00 EST, Height Start Date: 11/01/19 Stop Date: 10/26/20 Status: Ordered riboflavin 100 mg oral tablet 1 tablet = 100 mg, By Mouth, 2 times a day, # 60 tablet, 4 Refills, Maintenance, 01/03/20 13:00:00 EDT, [facility]/pharmacy #[id number], 152, cm, 11/01/19 19:28:00 EDT, Height, 81, kg, 11/01/19 19:28:00 EDT, Dry Weight Start Date: 01/03/20 Stop Date: 06/01/20 Status: Ordered sulindac 150 mg oral tablet See Instructions, TOME KRYSTEN TABLETA POR VIA ORAL DOS VECES AL JULIAN CUANDO SEA NECESARIO, # 60 tablet,2 Refills, Maintenance, [id number], 152, cm, 11/01/19 19:28:00 EDT, Height, 81, [...]
--- OUTSIDE RECORDS SUMMARY | 2023-07-21 13:04 | XMS_ITS | Continuity of Care Document ---
Author Name Unknown Organization [facility] Address [address] [place] [address]- Care Team Providers Care Public Health Staff Nurse Name Role Phone Renato MORRISON, Milton Loyola Primary Care Physicia n Encounter [facility] [place] Date(s): 06/12/22 - 07/12/22 [facility] [address] [place] [address]- Allergies, Adverse Reactions, Alerts Substance Reaction Severity Status traMADol tongue numbness--but she fell near [facility] Active Immunizations Given and Recorded [...] Patient Refuses 1Result Comment: NS DIL LOT [id number] EXP 11/2022 2Result Comment: DILUENT LOT#: [id number] EXP: 11/14 MFG: FRESENSIUS Medications albuterol 0.083% [...] = 5 mg, By Mouth, Daily, [facility], # 30 tablet, 3 Refills, Maintenance, 07/04/22 11:38:00 EST, Tablet, [facility]/pharmacy #[id number], Partial fill upon patient request if the prescription is for a schedule II opioid drug., 149.8, cm, 07/04/22 11... Start Date: 07/04/22 Stop Date: 11/01/22 Status: Ordered Aspirin Low Dose 81 mg oral delayed release tablet See Instructions, PJE KRYSTEN TABLETA TODOS [place] MIRANDA [facility] continue, # 30 [...] Instructions, # 150 each, Refills 11, Tot. [id number], Maintenance, Use for times a days with [...] Compound Start Date: 07/25/21 Status: Ordered ergocalciferol 74245 iu oral capsule See Instructions, TOME 1 CAPSULA POR VIA ORAL ONCE WEEKLY, # 4 capsule, Refills 4, Tot. Refills 4, 05/24/22 14:29:00 EDT, Instructions Replace Required Details, Route to Pharmacy Electronically, [facility]/pharmacy #[id number], 149.86, cm, 05/24/22 13:53:00 EDT, H... Start Date: 05/24/22 Status: Ordered Escitalopram = 20 mg, By Mouth, Daily, 0 Refills, Maintenance, 05/13/19 15:46:32 EDT Start Date: 05/13/19 Status: Ordered Eucerin Plus topical lotion 1 application, Topically, 2 times a day, PRN for dry skin, # 600 mL, 1 Refills, Maintenance, 05/24/22 14:28:00 EDT, Lotion, [facility]/pharmacy #[id number], Partial fill upon [...] 15 Unknown, 5 Refills, 05/24/22 14:29:00 EDT, [facility]/pharmacy #[id number], 149.86, cm, 05/24/22 13:53:00 EDT, [...] 09/15/24 12:17:00 EST, 09/21/23 12:17:00 EST, Solution, [facility]/pharmacy #[id number], 149.86, cm, 05/24/22 13:53:00 EDT, Height, 85.7, kg, 07/24/21 14:26:00 EST,... Start Date: 09/21/23 Stop Date: 09/15/24 Status: Ordered loratadine 10 mg oral tablet See Instructions, ASAD BURKETT TODOS LOS MIRANDA, # 30 tablet, Refills 5, Tot. Refills 5, 05/24/2214:42:00 EDT, Instructions Replace Required Details, Route to Pharmacy Electronically, [facility]/pharmacy#4471, 149.86, cm, 05/24/22 13:53:00 EDT, Height, 8... Start Date: 05/24/22 Status: Ordered meclizine 25 mg oral tablet 1 tablet = 25 mg, By Mouth, 3 times a day, PRN for dizziness, # 30 tablet, 0 Refills, Maintenance, 05/31/22 13:26:00 EDT, Tablet, [facility]/pharmacy #[id number], Partial [...] 05/31/22 13:26:00 EDT, Route to Pharmacy Electronically, [facility]/pharmacy #[id number], 149.86, cm, 10... Start Date: [...] Replace Required Details, Route to Pharmacy Electronically, [id number]... Start Date: 03/28/22 Status: Ordered Vitamin B2 100 mg oral tablet See Instructions, TOME KRYSTEN TABLETA DOS VECES AL JULIAN, # 60 tablet, 4 Refills, Maintenance, [id number], 152, cm, 11/06/20 10:17:00 EDT, Height, 81, [...] Care Nurse Name: Milton Gross NP Position: [facility] PCO Associate Professional Member Role: PCP Address: Address: [address] [place] [address]- Care Team Related Persons Name: YASMIN FISHER Address: home [address] [address]
--- OUTSIDE RECORDS SUMMARY | 2023-07-21 13:04 | XMS_ITS | Continuity of Care Document ---
Author Name Unknown Organization [facility] Address [address] [place] [id number]- Care Team Providers Care Reel Film Inspector Name Role Phone Renato MORRISON, Milton Loyola Primary Care Physicia n Encounter [facility] [place] Date(s): 12/05/21 - 01/04/[address] [id number] Attending Physician: Jimenez Gratn Admitting Physician: Jimenez Grant Referring Physician: AdmtrJimenez [...] Patient Refuses 1Result Comment: NS DIL LOT [id number] EXP 11/2022 2Result Comment: DILUENT LOT#: [id number] EXP: 11/14 MFG: FRESENSIUS Medications albuterol 0.083% [...] release tablet See Instructions, ASAD BASHIR TABLETA [employer], # 30 tablet, 11 Refills, [facility], 149.86, cm, 08/15/21 11:29:00 EST, Height, 85.7, kg, 07/24/21 14:26:00 EST, Dry Weight Start Date: 10/16/21 Status: Ordered atorvastatin 10 mg oral tablet See Instructions, ASAD BASHIR TABLETA [employer], # 30 tablet, 5 Refills, [facility]14, 149.86,cm, 08/15/21 11:29:00 EST, Height, 85.7, kg, 07/24/21 14:26:00 EST, Dry Weight Start Date: 10/29/21 Status: Ordered BD Ultra-Fine pen needles, BERTRAM 4 mm x 32 G BD Ultra-Fine pen needles, BERTRAM 4 mm x 32 G, See Instructions, # 150 each, Refills 11, Tot. [id number], Maintenance, Use for times a days with [...] tablet, Refills 1, Route to Pharmacy Electronically, [id number], 149.86, cm, 08/15/21 11:29:00 EST, Height, 85.7, [...] Mouth, 2 times a day, with food Hungarian label, # 60 tablet, 3 Refills, Maintenance, 07/24/21 15:01:00 EST, [facility]/pharmacy #[id number], Partial fill upon patient request if the prescription is for a schedule II opioid drug., 152, cm, 06/27... Start Date: 07/24/21 Stop Date: 11/21/21 Status: Ordered ergocalciferol 29891 iu oral capsule See Instructions, TOME 1 CAPSULA POR VIA ORAL ONCE WEEKLY, # 4 capsule, Refills 4, Instructions Replace Required Details, Route to Pharmacy Electronically, [facility] 09483, 149.86, cm, 08/15/21 11:29:00 EST, Height, 85.7, kg, 07/24/21 14:26:00 EST, Start Date: 09/24/21 Status: Ordered Escitalopram = 20 mg, By Mouth, Daily, 0 Refills, Maintenance, 05/13/19 15:46:32 EDT Start Date: 05/13/19 Status: Ordered Eucerin Plus topical lotion 1 application, Topically, 2 times a day, PRN for dry skin, # 600 mL, 1 Refills, Maintenance, 06/01/21 13:51:00 EDT, Lotion, [facility]/pharmacy #[id number], Partial fill upon patient request if the [...] # 15 Unknown, 5 Refills, [facility], 149.86, cm, 08/15/21 11:29:00 EST, Height, 85.7, kg, 07/24/21 14:26:00 EST, Dry Weight Start Date: 11/13/21 Status: Ordered Imitrex 50 mg oral tablet See Instructions, 1 tablet By Mouth at onset of headache. May repeat once in 2 hours. Not > 4/ week., # 9 tablet, 0 Refills, Maintenance, 01/03/20 13:01:00 EDT, [facility]/pharmacy #[id number], 152, cm, 11/01/19 19:28:00 [...] 09/26/22 12:17:00 EST, 10/01/21 12:17:00 EST, Solution, [facility]/pharmacy #[id number], 152, cm, 05/04/21 13:50:00 EDT, Height, 85.2, kg, 04/18/21 13:24:00 EDT, Dry... Start Date: 10/01/21 Stop Date: 09/26/22 Status: Ordered loratadine 10 mg oral tablet See Instructions, TOME KRYSTEN TABLETA [facility], # 30 tablet, Refills 5, Instructions Replace Required Details, Route to Pharmacy Electronically, [id number], 149.86, cm, 08/15/21 11:29:00 EST,Height, 85.7, kg, 07/24/21 14:26:00 EST, Dry Weight Start Date: 09/27/21 Status: Ordered meclizine 25 mg oral tablet 1 tablet = 25 mg, By Mouth, 3 times a day, PRN for dizziness, # 30 tablet, 0 Refills, Maintenance, 04/08/21 22:48:00 EDT, Tablet, [facility]/pharmacy #[id number], Partial fill upon patient request if the prescription is for a schedule II opioid drug., 152, cm, 03/... Start Date: 04/08/21 Status: Ordered [facility] [place] COVID-19 Vaccine 30 mcg/0.3 mL preservative-free intramuscular [...] Replace Required Details, Route to Pharmacy Electronically, [id number], [facility] STORE [address]32, 149.86, cm, 12... Start Date: 10/15/21 Status: [...] # 60 tablet, 4 Refills, Maintenance, [facility] [id number], 152, cm, 11/06/20 10:17:00 EDT, Height, 81, [...]
--- OUTSIDE RECORDS SUMMARY | 2023-07-21 13:04 | XMS_ITS | Continuity of Care Document ---
Author Name Unknown Organization [facility] Address [address] [place] [address]- Care Team Providers Care Monitor Technician Name Role Phone Milton Gross NP Primary Care Physicia n Encounter [facility] Date(s): 12/07/20 - 01/06/[address] [address]- Allergies, Adverse Reactions, Alerts Substance Reaction Severity [...] 12:25:00 EST, Aerosol, Route to Pharmacy Electronically, [id number], [facility]/pharmacy #[id number], 152, cm, 06/01/20 9:54:00 EDT, [...] EST, Route to Pharmacy Electronically, [facility]/pharmacy #[id number], 152, cm, 06/01/20 9:54:00 EDT, Height, 81, kg, 11/01/19 19:28:00 EDT, Dry Weight Start Date: 10/06/20 Status: Ordered atorvastatin 10 mg oral tablet 1 tablet = 10 mg, By Mouth, Daily, # 30 tablet, 5 Refills, Maintenance, 11/06/20 11:03:00 EDT, [facility]/pharmacy #[id number], Partial fill upon patient request if the prescription is for a schedule II opioid drug., 152, cm, 11/06/20 10:17:00 EDT, Height, 81, kg,... Start Date: 11/06/20 Stop Date: 05/05/21 Status: Ordered baclofen 5 mg oral tablet 1 tablet = 5 mg, By Mouth, 3 times a day, may cause drowsiness., # 42 tablet, 0 Refills, Maintenance, 12/14/20 11:40:00 EDT, Tablet, [facility]/pharmacy #[id number], Partial fill upon patient request if the prescription is for a schedule II opioid drug., 152, cm,... Start Date: 12/14/20 Stop Date: 12/28/20 Status: Ordered BD Ultra-Fine pen needles, BERTRAM 4 mm x 32 G BD Ultra-Fine pen needles, BERTRAM 4 mm x 32 G, See Instructions, # 150 each, Refills 11, Tot. [id number], Maintenance, Use for times a days with insulin. DM E119, 10/06/20 12:18:00 EST, Compound, 152, cm, 06/01/20 9:54:00 EDT, Height, 81, kg, 11/01/19 1... Start Date: 10/06/20 Status: Ordered BENGAY Arthritis topical cream See Instructions, rub into areas of pain and muscle tightness; instructions in Armenian, # 1 each, 2Refills, Maintenance, 12/14/20 11:39:00 EDT, [facility]/pharmacy #[id number], Partial fill upon patient [...] EDT, Route to Pharmacy Electronically, [facility]/pharmacy #[id number], 152, cm, 06/01/20 9:54:00 EDT, [...] 01/08/21 15:15:00 EDT, 12/22/20 13:57:00 EDT, Solution, [facility]/pharmacy #[id number], Partial fill upon patient request if the prescription is for a schedule II opioid drug., 40 Start Date: 12/22/20 Stop Date: 01/08/21 Status: Ordered Escitalopram By Mouth, Daily, 0 Refills, Maintenance, 05/13/19 15:46:32 EDT Start Date: 05/13/19 Status: Ordered Eucerin Plus topical lotion 1 application, Topically, 2 times a day, PRN for dry skin, # 600 mL, 11 Refills, Maintenance, 10/06/20 12:22:00 EST, Lotion, [facility]/pharmacy #[id number], 1 application Topically 2 times [...] Maintenance, 10/06/20 12:21:00 EST, Solution, [facility]/pharmacy #[id number], Partial fill upon patient request if the prescription is for a schedule II opio... Start Date: 10/06/20 Status: Ordered HumaLOG KwikPen 100 units/mL injectable solution = 15 units, Subcutaneous Infusion, 3 times a day before meals, Dx E11.9. D/C admelog same dose 15 units . give kwik pen, # 15 mL, 11 Refills, Maintenance, 10/06/20 12:20:00 EST, [facility]/pharmacy #[id number], 152, cm, 06/01/20 9:54:00 EDT, Height, 81, kg, ... Start Date: 10/06/20 Stop Date: 10/01/21 Status: Ordered Imitrex 50 mg oral tablet See Instructions, 1 tablet By Mouth at onset of headache. May repeat once in 2 hours. Not > 4/ week., # 9 tablet, 0 Refills, Maintenance, 01/03/20 13:01:00 EDT, [facility]/pharmacy #[id number], 152, cm, 11/01/19 19:28:00 [...] EST, 10/06/20 12:17:00 EST, Solution, [facility]/pharmacy #[id number], 152, cm, 06/01/20 9:54:00 EDT, Height, 81, kg, 11/01/19 19:28:00 EDT, Dry We... Start Date: 10/06/20 Stop Date: 10/01/21 Status: Ordered loratadine 10 mg oral tablet 10 mg, 1, tablet, By Mouth, Daily, # 30 tablet, Refills 5, Tot. Refills 5, Maintenance, 02/20/21 9:48:00 EDT, Route to Pharmacy Electronically, [facility]/pharmacy #[id number], 152, cm, 06/01/20 9:54:00 EDT, [...] #50 tablet, 1 Refills, Acute, [facility] ST[id number], 152, cm, 11/06/20 10:17:00 EDT, Height, 81, kg, 11/01/19 19:28:00 EDT, Dry Weight Start Date: 12/07/20 Status: Ordered metoprolol 25 mg oral tablet 25 mg, 1, tablet, By Mouth, 2 times a day, for 90 days, This is an increase in dose., # 180 tablet,Refills 3, Tot. Refills 3, Hard Stop 10/21/21 16:17:00 EST, 10/26/20 16:17:00 EST, Route to Pharmacy Electronically, [facility]/pharmacy #[id number], 152, cm, 06/01... Start Date: 10/26/20 Stop Date: 10/21/21 Status: Ordered riboflavin 100 mg oral tablet 1 tablet = 100 mg, By Mouth, 2 times a day, # 60 tablet, 4 Refills, Maintenance, 10/06/20 12:25:00 EST, [facility]/pharmacy #[id number], 152, cm, 06/01/20 9:54:00 EDT, Height, 81, kg, 11/01/19 19:28:00 EDT, Dry Weight Start Date: 10/06/20 Stop Date: 03/05/21 Status: Ordered sulindac 200 mg oral tablet 1 tablet = 200 mg, By Mouth, 2 times a day, # 60 tablet, 2 Refills, Maintenance, 12/14/20 11:44:00 EDT, Tablet, [facility]/pharmacy #[id number], Partial fill upon patient request if the prescription is for a schedule II opioid drug., 152, cm, 11/06/20 10:17:00 EDT... Start Date: 12/14/20 Status: Ordered Vitamin D3 1000 intl units oral tablet 1 tablet = 1,000 International_Units, By Mouth, Daily, # 30 tablet, 11 Refills, Maintenance, 10/06/20 12:25:00 EST, Tablet, [facility]/pharmacy #[id number], 152, cm, 06/01/20 9:54:00 EDT, [...]
--- OUTSIDE RECORDS SUMMARY | 2023-07-21 13:04 | XMS_ITS | Continuity of Care Document ---
Author Name Unknown Organization [facility] Address [address] [place] [id number]- Care Team Providers Care Gunner Mate Name Role Phone Renato MORRISON, Milton Loyola Primary Care Physicia n Encounter [facility] [place] Date(s): 10/09/21 - 11/08/21 [facility] [address] [address]- Attending Physician: Jimenez Grant Admitting Physician: Jimenez [...] Patient Refuses 1Result Comment: NS DIL LOT [id number] EXP 11/2022 2Result Comment: DILUENT LOT#: [id number] EXP: 11/14 MFG: FRESENSIUS Medications albuterol 0.083% [...] release tablet See Instructions, ASAD BASHIR TABLETA [employer] [facility]IR[facility]DA, # 30 tablet, 11 Refills, [facility]46, 149.86, cm, 08/15/21 11:29:00 EST, Height, 85.7, kg, 07/24/21 14:26:00 EST, Dry Weight Start Date: 10/16/21 Status: Ordered atorvastatin 10 mg oral tablet See Instructions, ASAD BASHIR TABLETA [employer] MIRANDA, # 30 tablet, 5 Refills, [facility] 87130, 149.86,cm, 08/15/21 11:29:00 EST, Height, 85.7, kg, 07/24/21 14:26:00 EST, Dry Weight Start Date: 10/29/21 Status: Ordered BD Ultra-Fine pen needles, BERTRAM 4 mm x 32 G BD Ultra-Fine pen needles, BERTRAM 4 mm x 32 G, See Instructions, # 150 each, Refills 11, Tot. [id number], Maintenance, Use for times a days with [...] Mouth, 2 times a day, with food French label, # 60 tablet, 3 Refills, Maintenance, 07/24/21 15:01:00 EST, [facility]/pharmacy #[id number], Partial fill upon patient request if the prescription is for a schedule II opioid drug., 152, cm, 06/27... Start Date: 07/24/21 Stop Date: 11/21/21 Status: Ordered ergocalciferol 79245 iu oral capsule See Instructions, TOME 1 CAPSULA POR VIA ORAL ONCE WEEKLY, # 4 capsule, Refills 4, Instructions Replace Required Details, Route to Pharmacy Electronically, [facility] [id number], 149.86, cm, 08/15/21 11:29:00 EST, Height, 85.7, kg, 07/24/21 14:26:00 EST, Start Date: 09/24/21 Status: Ordered Escitalopram = 20 mg, By Mouth, Daily, 0 Refills, Maintenance, 05/13/19 15:46:32 EDT Start Date: 05/13/19 Status: Ordered Eucerin Plus topical lotion 1 application, Topically, 2 times a day, PRN for dry skin, # 600 mL, 1 Refills, Maintenance, 06/01/21 13:51:00 EDT, Lotion, [facility]/pharmacy #[id number], Partial fill upon patient request if [...] 11 Refills, Maintenance, 05/04/21 14:14:00 EDT, Solution, [facility]/pharmacy #[id number], Partial fill upon patient request if the prescription is for a schedule II opio... Start Date: 05/04/21 Status: Ordered Imitrex 50 mg oral tablet See Instructions, 1 tablet By Mouth at onset of headache. May repeat once in 2 hours. Not > 4/ week., # 9 tablet, 0 Refills, Maintenance, 01/03/20 13:01:00 EDT, [facility]/pharmacy #[id number], 152, cm, 11/01/19 19:28:00 EDT, Height, [...] 09/26/22 12:17:00 EST, 10/01/21 12:17:00 EST, Solution, [facility]/pharmacy #[id number], 152, cm, 05/04/21 13:50:00 EDT, Height, 85.2, kg, 04/18/21 13:24:00 EDT, Dry... Start Date: 10/01/21 Stop Date: 09/26/22 Status: Ordered loratadine 10 mg oral tablet See Instructions, ASAD BURKETT TODOS [place] [facility], # 30 tablet, Refills 5, Instructions Replace Required Details, Route to Pharmacy Electronically, [facility] [id number], 149.86, cm, 08/15/21 11:29:00 EST,Height, 85.7, kg, 07/24/21 14:26:00 EST, Dry Weight Start Date: 09/27/21 Status: Ordered meclizine 25 mg oral tablet 1 tablet = 25 mg, By Mouth, 3 times a day, PRN for dizziness, # 30 tablet, 0 Refills, Maintenance, 04/08/21 22:48:00 EDT, Tablet, [facility]/pharmacy #[id number], Partial fill upon patient request if the prescription is for a schedule II opioid drug., 152, cm, ... Start Date: 04/08/21 Status: Ordered [employer] COVID-19 Vaccine 30 mcg/0.3 mL preservative-free intramuscular [...] Replace Required Details, Route to Pharmacy Electronically, [id number], [id number], 149.86, cm, 12... Start Date: 10/15/21 Status: [...] # 60 tablet, 4 Refills, Maintenance, [id number], 152, cm, 11/06/20 10:17:00 EDT, Height, 81, [...]
--- OUTSIDE RECORDS SUMMARY | 2023-07-21 13:04 | XMS_ITS | Continuity of Care Document ---
Author Name Unknown Organization [facility] Address [address] [place] [address]- Care Team Providers Care Cash Register Mechanic Name Role Phone Milton Gross NP Primary Care Physicia n Encounter [facility] [id number] Date(s): 07/17/22 - 08/16/[address] [address]- Attending Physician: Jimenez Grant Admitting Physician: Jimenez Grant Referring Physician: AdmtrJimenez Allergies, Adverse Reactions, Alerts Substance Reaction Severity Status traMADol tongue numbness--but she fell near loc Active Immunizations Given and Recorded Vaccine Date Status Refusal Reason [id number] bivalent booster vax 07/17/22 Given influenza virus [...] Patient Refuses 1Result Comment: NS DIL LOT [id number] EXP 11/2022 2Result Comment: DILUENT LOT#: [id number] EXP: 11/14 MFG: FRESENSIUS Medications acetaminophen 325 mg oral capsule 1 capsule = 325 mg, By Mouth, Every 4 hours, PRN as needed for fever, not to exceed 4000 mg/day Print in Lebanese, # 90 capsule, 1 Refills, Acute 09/20/22 11:47:00 EST, 07/17/22 11:47:00 EST, Capsule,[facility]/pharmacy #[id number], Partial fill upon patient requ... Start Date: 07/17/22 Stop Date: 09/20/22 Status: Ordered albuterol 0.083% inhalation solution 3 mL = 2.5 mg, Inhalation, Every 6 hours, PRN for wheezing, # 25 each, 11 Refills, Maintenance, 05/24/22 14:28:00 EDT, Solution, [facility]/pharmacy #[id number], 149.86, cm, 05/24/22 [...] = 5 mg, By Mouth, Daily, by [employer] records, # 30 tablet, 3 Refills, Maintenance, 07/04/22 11:38:00 EST, Tablet, [facility]/pharmacy #[id number], Partial fill upon patient request if the prescription is for a schedule II opioid drug., 149.8, cm, 07/04/22 11... Start Date: 07/04/22 Stop Date: 11/01/22 Status: Ordered Aspirin Low Dose 81 mg oral delayed release tablet See Instructions, ASAD BURKETT TODOS LOS MIRANDA by [employer] records continue, # 30 tablet, 11 Refills, 07/04/22 11:40:00 EST, [id number], 149.8, cm, 07/04/22 11:20:00 EST, Height, 83.3, kg, 06/14/22 18:50:00 EDT, Dry Weight Start Date: 07/04/22 Status: Ordered atorvastatin 10 mg oral tablet See Instructions, ASAD KRYSTEN TABLETA TOGARCES, # 30 tablet, 11 Refills, 05/24/22 14:42:00 EDT, [id number], 149.86, cm, 05/24/22 13:53:00 EDT, Height, 85.7, kg, 07/24/21 14:26:00 EST, Dry Weight Start Date: 05/24/22 Status: Ordered BD Ultra-Fine pen needles, BERTRAM 4 mm x 32 G BD Ultra-Fine pen needles, BERTRAM 4 mm x 32 G, See Instructions, # 150 each, Refills 11, Tot. [id number], Maintenance, Use for times a days with [...] Compound Start Date: 07/25/21 Status: Ordered ergocalciferol 94694 iu oral capsule See Instructions, TOME 1 CAPSULA POR VIA ORAL ONCE WEEKLY, # 4 capsule, Refills 4, Tot. Refills 4, 05/24/22 14:29:00 EDT, Instructions Replace Required Details, Route to Pharmacy Electronically, [facility]/pharmacy #[id number], 149.86, cm, 05/24/22 13:53:00 EDT, H... Start Date: 05/24/22 Status: Ordered Escitalopram = 20 mg, By Mouth, Daily, 0 Refills, Maintenance, 05/13/19 15:46:32 EDT Start Date: 05/13/19 Status: Ordered Eucerin Plus topical lotion 1 application, Topically, 2 times a day, PRN for dry skin, # 600 mL, 1 Refills, Maintenance, 05/24/22 14:28:00 EDT, Lotion, [facility]/pharmacy #[id number], Partial fill upon [...] tablet, 0 Refills, Maintenance, 01/03/20 13:01:00 EDT, [facility]/pharmacy #[id number], 152, cm, 11/01/19 19:28:00 EDT, Height, 81, kg, 11/01/19 19:28:00 EDT,... Start Date: 01/03/20 Status: Ordered Insulin Lispro Scot HenrikPen 100 units/mL injectable solution = 15 units, Subcutaneous Infusion, 3 times a day before meals, with breakfast and lunch rotate injection sites. stop novolog due insurance issues. in indonesian, # 15 mL, 11 Refills, Maintenance, 08/12/22 12:49:00 EST, [facility]/pharmacy #[id number], Partial fill... Start Date: 08/12/22 Stop [...] 09/15/24 12:17:00 EST, 09/21/23 12:17:00 EST, Solution, [facility]/pharmacy #[id number], 149.86, cm, 05/24/22 13:53:00 EDT, Height, 85.7, kg, 07/24/21 14:26:00 EST,... Start Date: 09/21/23 Stop Date: 09/15/24 Status: Ordered loratadine 10 mg oral tablet See Instructions, ASAD BURKETT TODOS [place], # 30 tablet, Refills 5, Tot. Refills 5, 05/24/2214:42:00 EDT, Instructions Replace Required Details, Route to Pharmacy Electronically, [facility]/pharmacy#[id number], 149.86, cm, 05/24/22 13:53:00 EDT, Height, 8... Start Date: 05/24/22 Status: Ordered meclizine 25 mg oral tablet 1 tablet = 25 mg, By Mouth, 3 times a day, PRN for dizziness, # 30 tablet, 0 Refills, Maintenance, 05/31/22 13:26:00 EDT, Tablet, [facility]/pharmacy #[id number], Partial fill upon [...] 05/31/22 13:26:00 EDT, Route to Pharmacy Electronically, [facility]/pharmacy #[id number], 149.86, cm, 10... [...] Replace Required Details, Route to Pharmacy Electronically, [id number]... Start Date: 03/28/22 Status: Ordered Pulse Oximeter Pulse Oximeter, See Instructions, # 1 each, Refills 0, Tot. Refills 0, Maintenance, For COVID Diagnosis (U07.1), 07/17/22 12:09:00 EST, Supply, 149.8, cm, 07/17/22 10:22:00 EST, Height, 83.3, kg, 06/14/22 18:50:00 EDT, Dry Weight Start Date: 07/17/22 Status: Ordered Vitamin B2 100 mg oral tablet See Instructions, ASAD KRYSTEN VALERIAMackenzie DOS JOSIEJEREMI AL JULIAN, # 60 tablet, 4 Refills, Maintenance, [facility] [id number], 152, cm, 11/06/20 10:17:00 EDT, Height, 81, [...] 100 in lifetime) entered on: 06/14/22 Sex Cardiology Consult note * Event Display: Consult Note Cardiology Authored Date: [id number] Note * Amber Ramirez: PERFORM, SIGN, VERIFY Event Display: Patient Education/Instruction Authored Date: [id number] [facility] Clinical Summary Person Information Visit Date 03/28/2015 10:20 AM Name ZAID DELEON Age 44 Years 1970 12:00 AM PCP Renato MORRISON, Milton Loyola PCP Sex Female Race White Ethnicity / Language Lebanese Reason for Visit: Allergy Info: NKA Smoking Status Never smoker Vital Signs Height Weight BMI Blood Pressure / Temperature Pulse Rate Respiratory Rate 02 Sat Mode of Delivery / Medication Information Albuterol (albuterol 0.083% inhalation solution) 3 mL, Inhalation, every 6 hours, As Needed, for wheezing, Refills: 1 Albuterol (albuterol CFC free 90 mcg/inh inhalation aerosol) 1 puffs, Inhalation, 4 times a day, AsNeeded, for wheezing, Refills: 3 Albuterol (albuterol CFC free 90 mcg/inh inhalation aerosol) 2 puffs, Inhalation, every 4 hours, AsNeeded, for wheezing, Refills: 0 Aspirin (aspirin 81 mg oral enteric coated tablet) 1 tablet, Oral, Daily, Refills: 11 Azithromycin (Azithromycin 5 Day Dose Pack 250 mg oral tablet) 1 pack/packet, Oral, once, Refills: 0 Clonazepam (clonazepam 1 mg oral tablet) 1 mg, Oral, Daily at Bedtime, Refills: 0 Durable Medical Equipment (Alcohol Wipes) , See Instructions, DM 250.02. Use before BS control and lantus, Refills: 5 Durable Medical Equipment (Insulin Syringe, BD Ultra-Fine 0.3 cc 31 G x 8 mm (5/16in)) , See Instructions, use as directed for Type 1 Diabetes Mellitus. DM 250.02. can give small needle if insurance covers., 30 days, Refills: 5 Durable Medical Equipment (Nebulizer/Compressor) , See Instructions, use with albuterol nebulization PRN for wheezes and PRN Durable Medical Equipment (Pen Colbert, 31 G x 8 mm BD Ultra Fine III) , See Instructions, use as directed for Type 1 Diabetes Mellitus. DM 250.02, 30 days, Refills: 5 Durable Medical Equipment (Pen Colbert, 31 G x 8 mm BD Ultra Fine III) , See Instructions, use as directed daily for Type DM 250.02, 30 days, Refills: 3 Ibuprofen (ibuprofen 600 mg oral tablet) 1 tablet, Oral, every 8 hours, 10 days, As Needed, as needed for pain, Refills: 2 Insulin Glargine (Lantus Solostar Pen 100 units/mL subcutaneous solution) 20 units, Subcutaneous Injection, Daily, Refills: 11 Insulin Lispro (insulin lispro 100 u/ml subcutaneous injection) , See Instructions, 15 minutes before or immediately after a meal, Refills: 11 Metoprolol (metoprolol 25 mg oral tablet, extended release) 25 mg, Oral, Daily, 30 days, Refills: 11 Metoprolol (metoprolol 25 mg oral tablet, extended release) 25 mg, Oral, Daily, 30 days, Refills: 11 Miscellaneous Rx (BD Ultra-Fine pen needles, BERTRAM 4 mm x 32 G) , See Instructions, Use for times a days with insulin. DM 250.02, Refills: 11 Omeprazole (Prilosec 20 mg oral enteric coated capsule) 1 capsule, Oral, Daily, Refills: 2 Paroxetine (Paxil Tablet) 20 mg, Oral, Daily sitagliptin (Januvia 100 mg oral tablet) 1 tablet, Oral, Daily, please print in indonesian, Refills: 11 Future Orders No future orders Orders Completed this Visit No visit orders documented Problem List Date Problem 12/31/12 Diabetes mellitus 12/31/12 Depression 05/10/14 Hypertension 12/31/12 Meningioma 04/16/13 Annual physical exam 30-OCT-2013 07:21:16 05/20/13 Asthma 11/12/14 Lactic acidosis Diagnosis Procedures No Procedures Documented If the following labs have been performed in the last year, the most recent result is displayed below. Diagnostic Results Lab Result Value Date Lead Hemoglobin A1C 7.3 09/14/14 LDL HDL Triglycerides Total Cholesterol Disclaimer: The information provided is of a general nature and is intended to be used in conjunction with the recommendations and advice of your health care practitioner. Every effort has been made to ensure that the information provided is accurate and complete at the time it is provided to you however, as your needs change, or, as new information becomes available, different or additional instructions may be required. If you have questions, please consult with your primary care provider or pharmacist, as appropriate. This information is not intended to serve as substitution for assessment and evaluation by a qualified health care provider. If you do not have a primary care provider, you may find a [facility] provider by calling [facility] [employer] at [phone]. For information about the plan of care including goals and instructions for your diagnosis, please see the patient education orders section of this document. Patient Visit Summary: Follow-Up Instructions With: Address: When: PLACED ON 4 MONTH REMINDER Comments: With: Address: When: TWO WEEKS FOLLOW UP PCP IN ON VACATION IN TWO WEEKS BOOKED 03/28 @ 10 Comments: Patient Education Materials Additional Instructions: * Amber Ramirez: PERFORM, SIGN, VERIFY Event Display: Patient Education/Instruction Authored Date: [id number] [facility] Clinical Summary Person Information Visit Date 03/28/2015 10:20 AM Name ZAID DELEON Age 44 Years 1970 12:00 AM PCP [id number] Sex Female Race White Ethnicity / Language Lebanese Reason for Visit: Allergy Info: NKA Smoking Status Never smoker Vital Signs Height Weight BMI Blood Pressure / Temperature Pulse Rate Respiratory Rate 02 Sat Mode of Delivery / Medication Information Albuterol (albuterol 0.083% inhalation solution) 3 mL, Inhalation, every 6 hours, As Needed, for wheezing, Refills: 1 Albuterol (albuterol CFC free 90 mcg/inh inhalation aerosol) 1 puffs, Inhalation, 4 times a day, AsNeeded, for wheezing, Refills: 3 Albuterol (albuterol CFC free 90 mcg/inh inhalation aerosol) 2 puffs, Inhalation, every 4 hours, AsNeeded, for wheezing, Refills: 0 Aspirin (aspirin 81 mg oral enteric coated tablet) 1 tablet, Oral, Daily, Refills: 11 Azithromycin (Azithromycin 5 Day Dose Pack 250 mg oral tablet) 1 pack/packet, Oral, once, Refills: 0 Clonazepam (clonazepam 1 mg oral tablet) 1 mg, Oral, Daily at Bedtime, Refills: 0 Durable Medical Equipment (Alcohol Wipes) , See Instructions, DM 250.02. Use before BS control and lantus, Refills: 5 Durable Medical Equipment (Insulin Syringe, BD Ultra-Fine 0.3 cc 31 G x 8 mm (5/16in)) , See Instructions, use as directed for Type 1 Diabetes Mellitus. DM 250.02. can give small needle if insurance covers., 30 days, Refills: 5 Durable Medical Equipment (Nebulizer/Compressor) , See Instructions, use with albuterol nebulization PRN for wheezes and PRN Durable Medical Equipment (Pen Colbert, 31 G x 8 mm BD Ultra Fine III) , See Instructions, use as directed for Type 1 Diabetes Mellitus. DM 250.02, 30 days, Refills: 5 Durable Medical Equipment (Pen Colbert, 31 G x 8 mm BD Ultra Fine III) , See Instructions, use as directed daily for Type DM 250.02, 30 days, Refills: 3 Ibuprofen (ibuprofen 600 mg oral tablet) 1 tablet, Oral, every 8 hours, 10 days, As Needed, as needed for pain, Refills: 2 Insulin Glargine (Lantus Solostar Pen 100 units/mL subcutaneous solution) 20 units, Subcutaneous Injection, Daily, Refills: 11 Insulin Lispro (insulin lispro 100 u/ml subcutaneous injection) , See Instructions, 15 minutes before or immediately after a meal, Refills: 11 Metoprolol (metoprolol 25 mg oral tablet, extended release) 25 mg, Oral, Daily, 30 days, Refills: 11 Metoprolol (metoprolol 25 mg oral tablet, extended release) 25 mg, Oral, Daily, 30 days, Refills: 11 Miscellaneous Rx (BD Ultra-Fine pen needles, BERTRAM 4 mm x 32 G) , See Instructions, Use for times a days with insulin. DM 250.02, Refills: 11 Omeprazole (Prilosec 20 mg oral enteric coated capsule) 1 capsule, Oral, Daily, Refills: 2 Paroxetine (Paxil Tablet) 20 mg, Oral, Daily sitagliptin (Januvia 100 mg oral tablet) 1 tablet, Oral, Daily, please print in indonesian, Refills: 11 Future Orders No future orders Orders Completed this Visit No visit orders documented Problem List Date Problem 12/31/12 Diabetes mellitus 12/31/12 Depression 05/10/14 Hypertension 12/31/12 Meningioma 04/16/13 Annual physical exam 30-OCT-2013 07:21:16 05/20/13 Asthma 11/12/14 Lactic acidosis Diagnosis Procedures No Procedures Documented If the following labs have been performed in the last year, the most recent result is displayed below. Diagnostic Results Lab Result Value Date Lead Hemoglobin A1C 7.3 09/14/14 LDL HDL Triglycerides Total Cholesterol Disclaimer: The information provided is of a general nature and is intended to be used in conjunction with the recommendations and advice of your health care practitioner. Every effort has been made to ensure that the information provided is accurate and complete at the time it is provided to you however, as your needs change, or, as new information becomes available, different or additional instructions may be required. If you have questions, please consult with your primary care provider or pharmacist, as appropriate. This information is not intended to serve as substitution for assessment and evaluation by a qualified health care provider. If you do not have a primary care provider, you may find a [facility] provider by calling [facility] at [phone]. For information about the plan of care including goals and instructions for your diagnosis, please see the patient education orders section of this document. Patient Visit Summary: Follow-Up Instructions With: Address: When: TWO WEEKS FOLLOW UP PCP IN ON VACATION IN TWO WEEKS BOOKED 03/28 @ 10 Comments: Patient Education Materials Additional Instructions: Patient Care team information Care Team Personnel Name: Jesika Hua RN Position: [facility] RN Member Role: Primary Care Nurse Name: Milton Gross NP Position: [facility] PCO Associate Professional Member Role: PCP Address: Address: [address] [place] [address]- Care Team Related Persons Name: YASMIN FISHER Address: home [address] [facility] [facility] [address] [place] [address]
--- OUTSIDE RECORDS SUMMARY | 2023-07-21 13:04 | XMS_ITS | Continuity of Care Document ---
Author Name Unknown Organization [facility] Address [address] [place] [address]- Care Team Providers Care Bass Singer Name Role Phone Renato MORRISON, Milton Loyola Primary Care Physicia n Encounter [facility] Date(s): 05/10/22 - 09/07/[address] [address]- Attending Physician: Joselin Guerrero MD Admitting Physician: Joselin Guerrero MD Allergies, Adverse Reactions, Alerts Substance Reaction Severity Status traMADol tongue numbness--but she fell near loc Active Immunizations Given and Recorded Vaccine Date Status Refusal Reason [id number] bivalent booster vax 07/17/22 Given influenza virus [...] Patient Refuses 1Result Comment: NS DIL LOT [id number] EXP 11/2022 2Result Comment: DILUENT LOT#: [id number] EXP: 11/14 MFG: FRESENSIUS Medications acetaminophen 325 mg oral capsule 1 capsule = 325 mg, By Mouth, Every 4 hours, PRN as needed for fever, not to exceed 4000 mg/day Print in [place], # 90 capsule, 1 Refills, Acute 09/20/22 11:47:00 EST, 07/17/22 11:47:00 EST, [id number], Partial fill upon patient requ... Start [...] = 5 mg, By Mouth, Daily, by [employer] records, # 30 tablet, 3 Refills, Maintenance, 07/04/22 11:38:00 EST, Tablet, [facility]/pharmacy #[id number], Partial fill upon patient request if the prescription is for a schedule II opioid drug., 149.8, cm, 07/04/22 11... Start Date: 07/04/22 Stop Date: 11/01/22 Status: Ordered Aspirin Low Dose 81 mg oral delayed release tablet See Instructions, ASAD BURKETT TODOS LOS MIRANDA by [employer] records continue, # 30 tablet, 11 Refills, [...] Instructions, # 150 each, Refills 11, Tot. [id number], Maintenance, Use for times a days with [...] Compound Start Date: 07/25/21 Status: Ordered ergocalciferol 39344 iu oral capsule See Instructions, TOME 1 CAPSULA POR VIA ORAL ONCE WEEKLY, # 4 capsule, Refills 4, Tot. Refills 4, 05/24/22 14:29:00 EDT, Instructions Replace Required Details, Route to Pharmacy Electronically, [facility]/pharmacy #[id number], 149.86, cm, 05/24/22 13:53:00 EDT, H... Start Date: 05/24/22 Status: Ordered Escitalopram = 20 mg, By Mouth, Daily, 0 Refills, Maintenance, 05/13/19 15:46:32 EDT Start Date: 05/13/19 Status: Ordered Eucerin Plus topical lotion 1 application, Topically, 2 times a day, PRN for dry skin, # 600 mL, 1 Refills, Maintenance, 05/24/22 14:28:00 EDT, Lotion, [facility]/pharmacy #[id number], Partial fill upon patient request [...] tablet, 0 Refills, Maintenance, 01/03/20 13:01:00 EDT, [facility]/pharmacy #[id number], 152, cm, 11/01/19 19:28:00 EDT, Height, 81, kg, 11/01/19 19:28:00 EDT,... Start Date: 01/03/20 Status: Ordered Insulin Lispro Scot KwikPen 100 units/mL injectable solution = 15 units, Subcutaneous Infusion, 3 times a day before meals, with breakfast and lunch rotate injection sites. stop novolog due insurance issues. in georgian, # 15 mL, 11 Refills, Maintenance, 08/12/22 12:49:00 EST, [facility]/pharmacy #[id number], Partial fill... Start Date: 08/12/22 [...] 09/15/24 12:17:00 EST, 09/21/23 12:17:00 EST, Solution, [facility]/pharmacy #[id number], 149.86, cm, 05/24/22 13:53:00 EDT, Height, 85.7, kg, 07/24/21 14:26:00 EST,... Start Date: 09/21/23 Stop Date: 09/15/24 Status: Ordered loratadine 10 mg oral tablet See Instructions, ASAD SHAWA TODOS LOS MIRANDA, # 30 tablet, Refills 5, Tot. Refills 5, 05/24/2214:42:00 EDT, Instructions Replace Required Details, Route to Pharmacy Electronically, [facility]/pharmacy#[id number], 149.86, cm, 05/24/22 13:53:00 EDT, Height, 8... Start Date: 05/24/22 Status: Ordered meclizine 25 mg oral tablet 1 tablet = 25 mg, By Mouth, 3 times a day, PRN for dizziness, # 30 tablet, 0 Refills, Maintenance, 05/31/22 13:26:00 EDT, Tablet, [facility]/pharmacy #[id number], Partial fill upon patient request [...] 13:26:00 EDT, Route to Pharmacy Electronically, [facility]/pharmacy #[id number], 149.86, cm, 10... Start Date: [...] Replace Required Details, Route to Pharmacy Electronically, [id number]... Start Date: 03/28/22 Status: Ordered Pulse Oximeter [...] JULIAN, # 60 tablet, 4 Refills, Maintenance, [facility] [id number], 152, cm, 11/06/20 10:17:00 EDT, Height, 81, [...] Team Personnel Name: Jesika Hua RN Position: [facility] RN Member Role: Primary Care Nurse Name: Milton Gross NP Position: [facility] PCO Associate Professional Member Role: PCP Address: Address: [address] [place] [address]- Care Team Related Persons Name: YASMIN FISHER Address: home [address] [place] [id number]
--- OUTSIDE RECORDS SUMMARY | 2023-07-21 13:04 | XMS_ITS | Continuity of Care Document ---
Author Name Unknown Organization [facility] Address [address] [place] [address]- Care Team Providers Care Gluing Machine Operator Name Role Phone Renato MORRISON, Milton Loyola Primary Care Physicia n Encounter [facility] Date(s): 10/02/20 - 11/01/[address] [address]- Allergies, Adverse Reactions, Alerts Substance Reaction Severity Status traMADol tongue numbness--but she fell near [facility] Active Immunizations Given and Recorded Vaccine [...] 12:25:00 EST, Aerosol, Route to Pharmacy Electronically, [id number], [facility]/pharmacy #[id number], 152, cm, 06/01/20 9:54:00 EDT, [...] 10/06/20 12:25:00 EST, Route to Pharmacy Electronically, [facility]/pharmacy #[id number], 152, cm, 06/01/20 9:54:00 EDT, Height, 81, kg, 11/01/19 19:28:00 EDT, Dry Weight Start Date: 10/06/20 Status: Ordered BD Ultra-Fine pen needles, BERTRAM 4 mm x 32 G BD Ultra-Fine pen needles, BERTRAM 4 mm x 32 G, See Instructions, # 150 each, Refills 11, Tot. [id number], Maintenance, Use for times a days with [...] 11/28/20 10:24:00 EDT, Route to Pharmacy Electronically, [facility]/pharmacy #[id number], 152, cm, 06/01/20 9:54:00 EDT, Height, 81, kg, 10/31... Start Date: 11/28/20 Stop Date: 05/27/21 Status: Ordered Colace sodium 100 mg oral capsule 100 mg, 1, capsule, By Mouth, 2 times a day, PRN, for 30 days, # 60 capsule, Refills 5, Tot. Refills 5, Hard Stop 11/28/20 10:24:00 EDT, for constipation, 06/01/20 10:24:00 EDT, Route to Pharmacy Electronically, [facility]/pharmacy #[id number], 152, cm, 06/01/20 9... Start Date: [...] 11 Refills, Maintenance, 10/06/20 12:22:00 EST, Lotion, [facility]/pharmacy #[id number], 1 application Topically 2 times [...] 11 Refills, Maintenance, 10/06/20 12:21:00 EST, Solution, [facility]/pharmacy #[id number], Partial fill upon patient request [...] tablet, 0 Refills, Maintenance, 01/03/20 13:01:00 EDT, [facility]/pharmacy #[id number], 152, cm, 11/01/19 19:28:00 EDT, [...] 10/01/21 12:17:00 EST, 10/06/20 12:17:00 EST, Solution, [facility]/pharmacy #[id number], 152, cm, 06/01/20 9:54:00 EDT, Height, 81, kg, 11/01/19 19:28:00 EDT, Dry We... Start Date: 10/06/20 Stop Date: 10/01/21 Status: Ordered loratadine 10 mg oral tablet 10 mg, 1, tablet, By Mouth, Daily, # 30 tablet, Refills 5, Tot. Refills 5, Maintenance, 02/20/21 9:48:00 EDT, Route to Pharmacy Electronically, [facility]/pharmacy #[id number], 152, cm, 06/01/20 9:54:00 EDT, [...] 11/03/20 12:27:00 EST, 10/06/20 12:27:00 EST, Tablet, [facility]/pharmacy #[id number], Partial fill upon patient request [...] 10/26/20 16:17:00 EST, Route to Pharmacy Electronically, [facility]/pharmacy #[id number], 152, cm, 06/01... Start Date: 10/26/20 Stop Date: 10/21/21 Status: Ordered mupirocin 2% topical ointment 1 application, Topically, 3 times a day, for 10 days, # 22 Gm, 1 Refills, Acute 11/15/20 12:24:00 EDT, 10/26/20 12:24:00 EST, Ointment, [facility]/pharmacy #[id number], Partial fill upon patient request [...]
--- OUTSIDE RECORDS SUMMARY | 2023-07-21 13:04 | XMS_ITS | Continuity of Care Document ---
Author Name Unknown Organization [facility] Address [address] [place] [address]- Care Team Providers Care Event Manager Name Role Phone Renato MORRISON, Milton Loyola Primary Care Physicia n [place] [facility] [place] [id number] Date(s): 08/27/21 - 09/26/[address] [address]- Attending Physician: Jimenez Grant Admitting Physician: AdmtrJimenez Referring Physician: Admtr, ArKarely Allergies, Adverse Reactions, Alerts Substance Reaction Severity [...] Patient Refuses 1Result Comment: NS DIL LOT [id number] EXP 11/2022 2Result Comment: DILUENT LOT#: [id number] EXP: 11/14 MFG: FRESENSIUS Medications albuterol 0.083% inhalation solution 3 mL = 2.5 mg, Inhalation, Every 6 hours, PRN for wheezing, # 25 each, 11 Refills, Maintenance, 10/06/20 12:25:00 EST, Solution, [facility]/pharmacy #[id number], 152, cm, 06/01/20 9:54:00 EDT, Height, 81, kg, 11/01/19 19:28:00 EDT, Dry Weight Start Date: 10/06/20 Status: Ordered albuterol CFC free 90 mcg/inh inhalation aerosol 2, puffs, Inhalation, Every 4 hours, PRN, # 18 Gm, Refills 11, Tot. Refills 11, Maintenance, 10/06/20 12:25:00 EST, Aerosol, Route to Pharmacy Electronically, [id number], [facility]/pharmacy #[id number], 152, cm, [...] Instructions, # 150 each, Refills 11, Tot. [id number], Maintenance, Use for times a days with [...] Mouth, 2 times a day, with food Indonesian label, # 60 tablet, 3 Refills, Maintenance, 07/24/21 15:01:00 EST, [facility]/pharmacy #[id number], Partial fill upon patient request if the prescription is for a schedule II opioid drug., 152, cm, 06/27... Start Date: 07/24/21 Stop Date: 11/21/21 Status: Ordered ergocalciferol 78685 iu oral capsule See Instructions, TOME 1 CAPSULA POR VIA ORAL ONCE WEEKLY, # 4 capsule, Refills 4, Instructions Replace Required Details, Route to Pharmacy Electronically, [facility] STORE 81909, 149.86, cm, 08/15/21 11:29:00 EST, Height, 85.7, kg, 07/24/21 14:26:00 EST, Start Date: 09/24/21 Status: Ordered Escitalopram = 20 mg, By Mouth, Daily, 0 Refills, Maintenance, 05/13/19 15:46:32 EDT Start Date: 05/13/19 Status: Ordered Eucerin Plus topical lotion 1 application, Topically, 2 times a day, PRN for dry skin, # 600 mL, 1 Refills, Maintenance, 06/01/21 13:51:00 EDT, Lotion, [id number], Partial fill upon patient request [...] TOLOMAS MIRANDA, # 30 tablet, Refills 5, Maintenance, Instructions Replace Required Details, Route to Pharmacy Electronically, [facility] STORE [id number], 152, cm, 11/06/20 10:17:00 EDT, Height, 81, kg, 11/01/19 19:28:00 EDT, .. Start Date: 04/03/21 Status: Ordered meclizine 25 [...] Date: 10/26/20 Stop Date: 10/21/21 Status: Ordered AFreeze COVID-19 Vaccine 30 mcg/0.3 mL preservative-free intramuscular [...] 4 Refills, Maintenance, [facility] [id number], 152, cm, 11/06/20 10:17:00 EDT, Height, 81, [...]
--- OUTSIDE RECORDS SUMMARY | 2023-07-21 13:04 | XMS_ITS | Continuity of Care Document ---
Author Name Unknown Organization [facility] Address [address] [place] [address]- Care Team Providers Care Caddie Name Role Phone Renato OVEN STRIPPER, Milton Loyola Primary Care Physicia n Encounter [facility] [place] Date(s): 11/05/21 - 12/05/[address] [address]- Allergies, Adverse Reactions, Alerts Substance Reaction Severity [...] Patient Refuses 1Result Comment: NS DIL LOT [id number] EXP 11/2022 2Result Comment: DILUENT LOT#: [id number] EXP: 11/14 MFG: FRESENSIUS Medications albuterol 0.083% [...] release tablet See Instructions, ASAD BASHIR TABLETA [employer] MARCOS MIRANDA, # 30 tablet, 11 Refills, [facility], 149.86, cm, 08/15/21 11:29:00 EST, Height, 85.7, kg, 07/24/21 14:26:00 EST, Dry Weight Start Date: 10/16/21 Status: Ordered atorvastatin 10 mg oral tablet See Instructions, ASAD BASHIR TABLETA [employer] MIRANDA, # 30 tablet, 5 Refills, [facility] 83248, 149.86,cm, 08/15/21 11:29:00 EST, Height, 85.7, kg, 07/24/21 14:26:00 EST, Dry Weight Start Date: 10/29/21 Status: Ordered BD Ultra-Fine pen needles, BERTRAM 4 mm x 32 G BD Ultra-Fine pen needles, BERTRAM 4 mm x 32 G, See Instructions, # 150 each, Refills 11, Tot. [id number], Maintenance, Use for times a days with [...] Mouth, 2 times a day, with food Danish label, # 60 tablet, 3 Refills, Maintenance, 07/24/21 15:01:00 EST, [facility]/pharmacy #[id number], Partial fill upon patient request if the prescription is for a schedule II opioid drug., 152, cm, 06/27... Start Date: 07/24/21 Stop Date: 11/21/21 Status: Ordered ergocalciferol 71332 iu oral capsule See Instructions, TOME 1 CAPSULA POR VIA ORAL ONCE WEEKLY, # 4 capsule, Refills 4, Instructions Replace Required Details, Route to Pharmacy Electronically, [facility] STORE 86265, 149.86, cm, 08/15/21 11:29:00 EST, Height, 85.7, kg, 07/24/21 14:26:00 EST, Start Date: 09/24/21 Status: Ordered Escitalopram = 20 mg, By Mouth, Daily, 0 Refills, Maintenance, 05/13/19 15:46:32 EDT Start Date: 05/13/19 Status: Ordered Eucerin Plus topical lotion 1 application, Topically, 2 times a day, PRN for dry skin, # 600 mL, 1 Refills, Maintenance, 06/01/21 13:51:00 EDT, Lotion, [facility]/pharmacy #[id number], Partial fill upon [...] L[place] COM[place], # 15 Unknown, 5 Refills, [facility] 24834, 149.86, cm, 08/15/21 11:29:00 EST, Height, 85.7, kg, 07/24/21 14:26:00 EST, Dry Weight Start Date: 11/13/21 Status: Ordered Imitrex 50 mg oral tablet See Instructions, 1 tablet By Mouth at onset of headache. May repeat once in 2 hours. Not > 4/ week., # 9 tablet, 0 Refills, Maintenance, 05/11/20 13:01:00 EDT, [facility]/pharmacy #[id number], 152, cm, 11/01/19 [...] 09/26/22 12:17:00 EST, 10/01/21 12:17:00 EST, Solution, [facility]/pharmacy #[id number], 152, cm, 05/04/21 13:50:00 EDT, Height, 85.2, kg, 04/18/21 13:24:00 EDT, Dry... Start Date: 10/01/21 Stop Date: 09/26/22 Status: Ordered loratadine 10 mg oral tablet See Instructions, ASAD BURKETT TODOS LOS MIRANDA, # 30 tablet, Refills 5, Instructions Replace Required Details, Route to Pharmacy Electronically, [facility] STORE 44216, 149.86, cm, 08/15/21 11:29:00 EST,Height, 85.7, kg, 07/24/21 14:26:00 EST, Dry Weight Start Date: 09/27/21 Status: Ordered meclizine 25 mg oral tablet 1 tablet = 25 mg, By Mouth, 3 times a day, PRN for dizziness, # 30 tablet, 0 Refills, Maintenance, 04/08/21 22:48:00 EDT, Tablet, [facility]/pharmacy #[id number], Partial fill upon patient request if the prescription is for a schedule II opioid drug., 152, cm, ... Start Date: 04/08/21 Status: Ordered VendorStack COVID-19 Vaccine 30 mcg/0.3 mL preservative-free intramuscular [...] Replace Required Details, Route to Pharmacy Electronically, [id number], [facility], 149.86, cm, 12... Start Date: 10/15/21 Status: [...] # 60 tablet, 4 Refills, Maintenance, [id number], 152, cm, 11/06/20 10:17:00 EDT, Height, 81, [...]
--- OUTSIDE RECORDS SUMMARY | 2023-07-21 13:05 | XMS_ITS | Continuity of Care Document ---
Author Name Unknown Organization [facility] Address [address] [place] [address]- Care Team Providers Care Medical [facility] Sales Name Role Phone Milton Gross NP Primary Care Physicia n [place] [facility] [id number] Date(s): 11/21/20 - 12/21/20 [facility] [address] [place] [address]- Attending Physician: Jimenez Grant Admitting Physician: AdmJimenez [...] 12:25:00 EST, Aerosol, Route to Pharmacy Electronically, [id number], [facility]/pharmacy #[id number], 152, cm, 06/01/20 [...] Route to Pharmacy Electronically, [facility]/pharmacy #[id number], 152, cm, 06/01/20 9:54:00 EDT, Height, 81, kg, 11/01/19 19:28:00 EDT, Dry Weight Start Date: 10/06/20 Status: Ordered atorvastatin 10 mg oral tablet 1 tablet = 10 mg, By Mouth, Daily, # 30 tablet, 5 Refills, Maintenance, 11/06/20 11:03:00 EDT, [facility]/pharmacy #[id number], Partial fill upon [...] 0 Refills, Maintenance, 12/14/20 11:40:00 EDT, Tablet, [facility]/pharmacy #[id number], Partial fill upon patient request if the prescription is for a schedule II opioid drug., 152, cm,... Start Date: 12/14/20 Stop Date: 12/28/20 Status: Ordered BD Ultra-Fine pen needles, BERTRAM 4 mm x 32 G BD Ultra-Fine pen needles, BERTRAM 4 mm x 32 G, See Instructions, # 150 each, Refills 11, Tot. [id number], Maintenance, Use for times a days with insulin. DM E119, 10/06/20 12:18:00 EST, Compound, 152, cm, 06/01/20 9:54:00 EDT, Height, 81, kg, 11/01/19 1... Start Date: 10/06/20 Status: Ordered BENGAY Arthritis topical cream See Instructions, rub into areas of pain and muscle tightness; instructions in Thai, # 1 each, 2Refills, Maintenance, 12/14/20 11:39:00 EDT, [facility]/pharmacy #[id number], Partial fill upon [...] Route to Pharmacy Electronically, [facility]/pharmacy #[id number], 152, cm, 06/01/20 [...] 11 Refills, Maintenance, 10/06/20 12:22:00 EST, Lotion, [facility]/pharmacy #[id number], 1 application Topically [...] mL, 11 Refills, Maintenance, 10/06/20 12:20:00 EST, [facility]/pharmacy #[id number], 152, cm, 06/01/20 [...] 02/20/21 9:48:00 EDT, Route to Pharmacy Electronically, [facility]/pharmacy #[id number], 152, cm, 06/01/20 [...] NECESARIO DIZZINESS, #50 tablet, 1 Refills, Acute, [facility] STORE 47217, 152, cm, 11/06/20 10:17:00 EDT, Height, 81, kg, 11/01/19 19:28:00 EDT, Dry Weight Start Date: 12/07/20 Status: Ordered metoprolol 25 mg oral tablet 25 mg, 1, tablet, By Mouth, 2 times a day, for 90 days, This is an increase in dose., # 180 tablet,Refills 3, Tot. Refills 3, Hard Stop 10/21/21 16:17:00 EST, 10/26/20 16:17:00 EST, Route to Pharmacy Electronically, [facility]/pharmacy #[id number], 152, cm, 06/01... Start Date: 10/26/20 Stop Date: 10/21/21 Status: Ordered riboflavin 100 mg oral tablet 1 tablet = 100 mg, By Mouth, 2 times a day, # 60 tablet, 4 Refills, Maintenance, 10/06/20 12:25:00 EST, [facility]/pharmacy #[id number], 152, cm, 06/01/20 9:54:00 EDT, Height, 81, kg, 11/01/19 19:28:00 EDT, Dry Weight Start Date: 10/06/20 Stop Date: 03/05/21 Status: Ordered sulindac 200 mg oral tablet 1 tablet = 200 mg, By Mouth, 2 times a day, # 60 tablet, 2 Refills, Maintenance, 12/14/20 11:44:00 EDT, Tablet, [facility]/pharmacy #[id number], Partial fill upon patient request if the prescription is for a schedule II opioid drug., 152, cm, 11/06/20 10:17:00 EDT... Start Date: 12/14/20 Status: Ordered Vitamin D3 1000 intl units oral tablet 1 tablet = 1,000 International_Units, By Mouth, Daily, # 30 tablet, 11 Refills, Maintenance, 10/06/20 12:25:00 EST, Tablet, [facility]/pharmacy #[id number], 152, cm, 06/01/20 [...]
--- OUTSIDE RECORDS SUMMARY | 2023-07-21 13:05 | XMS_ITS | Continuity of Care Document ---
Author Name Unknown Organization [facility] Address [address] [place] [address]- Care Team Providers Care Drill Press Operator Name Role Phone Milton Gross NP Primary Care Physicia n Encounter [facility] Date(s): 06/17/22 - 07/17/[address] [address]- Allergies, Adverse Reactions, Alerts Substance Reaction Severity Status traMADol tongue numbness--but she fell near [facility] Active Immunizations Given and Recorded Vaccine Date Status Refusal Reason [id number] bivalent booster vax 07/17/22 Given influenza virus [...] Patient Refuses 1Result Comment: NS DIL LOT [id number] EXP 11/2022 2Result Comment: DILUENT LOT#: [id number] EXP: 11/14 MFG: FRESENSIUS Medications acetaminophen 325 mg oral capsule 1 capsule = 325 mg, By Mouth, Every 4 hours, PRN as needed for fever, not to exceed 4000 mg/day Print in Georgian, # 90 capsule, 1 Refills, Acute 09/20/22 11:47:00 EST, 07/17/22 11:47:00 EST, Capsule,[facility]/pharmacy #[id number], Partial fill upon patient requ... [...] = 5 mg, By Mouth, Daily, by [employer] records, # 30 tablet, 3 Refills, Maintenance, 07/04/22 11:38:00 EST, Tablet, [facility]/pharmacy #[id number], Partial fill upon patient request if the prescription is for a schedule II opioid drug., 149.8, cm, 07/04/22 11... Start Date: 07/04/22 Stop Date: 11/01/22 Status: Ordered Aspirin Low Dose 81 mg oral delayed release tablet See Instructions, ASAD BURKETT TODOS LOS MIRANDA by [employer] records continue, # 30 tablet, 11 Refills, 07/04/22 11:40:00 EST, [id number], 149.8, cm, 07/04/22 11:20:00 EST, Height, 83.3, kg, 06/14/22 18:50:00 EDT, Dry Weight Start Date: 07/04/22 Status: Ordered atorvastatin 10 mg oral tablet See Instructions, TOME KRYSTEN TABLETA TODOS LOS MIRANDA, # 30 tablet, 11 Refills, 05/24/22 14:42:00 EDT, [facility]/pharmacy #[id number], 149.86, cm, 05/24/22 13:53:00 EDT, Height, 85.7, kg, 07/24/21 14:26:00 EST, Dry Weight Start Date: 05/24/22 Status: Ordered BD Ultra-Fine pen needles, BERTRAM 4 mm x 32 G BD Ultra-Fine pen needles, BERTRAM 4 mm x 32 G, See Instructions, # 150 each, Refills 11, Tot. [id number], Maintenance, Use for times a days with [...] Compound Start Date: 07/25/21 Status: Ordered ergocalciferol 59633 iu oral capsule See Instructions, TOME 1 CAPSULA POR VIA ORAL ONCE WEEKLY, # 4 capsule, Refills 4, Tot. Refills 4, 05/24/22 14:29:00 EDT, Instructions Replace Required Details, Route to Pharmacy Electronically, [facility]/pharmacy #[id number], 149.86, cm, 05/24/22 13:53:00 EDT, H... Start Date: 05/24/22 Status: Ordered Escitalopram = 20 mg, By Mouth, Daily, 0 Refills, Maintenance, 05/13/19 15:46:32 EDT Start Date: 05/13/19 Status: Ordered Eucerin Plus topical lotion 1 application, Topically, 2 times a day, PRN for dry skin, # 600 mL, 1 Refills, Maintenance, 05/24/22 14:28:00 EDT, Lotion, [facility]/pharmacy #[id number], Partial fill upon patient [...] 15 Unknown, 5 Refills, 05/24/22 14:29:00 EDT, [facility]/pharmacy #[id number], 149.86, cm, 05/24/22 13:53:00 EDT, Height, 85.7, kg, 07/24/21 14:26:00 EST, Dry Weight Start Date: 05/24/22 Status: Ordered Imitrex 50 mg oral tablet See Instructions, 1 tablet By Mouth at onset of headache. May repeat once in 2 hours. Not > 4/ week., # 9 tablet, 0 Refills, Maintenance, 01/03/20 13:01:00 EDT, [facility]/pharmacy #[id number], 152, cm, 11/01/19 19:28:00 [...] 09/15/24 12:17:00 EST, 09/21/23 12:17:00 EST, Solution, [facility]/pharmacy #[id number], 149.86, cm, 05/24/22 13:53:00 EDT, Height, 85.7, kg, 07/24/21 14:26:00 EST,... Start Date: 09/21/23 Stop Date: 09/15/24 Status: Ordered loratadine 10 mg oral tablet See Instructions, ASAD BURKETT TODOS [place] MIRANDA, # 30 tablet, Refills 5, Tot. Refills 5, 05/24/2214:42:00 EDT, Instructions Replace Required Details, Route to Pharmacy Electronically, [facility]/pharmacy#4471, 149.86, cm, 05/24/22 13:53:00 EDT, Height, 8... Start Date: 05/24/22 Status: Ordered meclizine 25 mg oral tablet 1 tablet = 25 mg, By Mouth, 3 times a day, PRN for dizziness, # 30 tablet, 0 Refills, Maintenance, 05/31/22 13:26:00 EDT, Tablet, [facility]/pharmacy #[id number], Partial fill upon patient [...] 05/31/22 13:26:00 EDT, Route to Pharmacy Electronically, [facility]/pharmacy #[id number], 149.86, cm, 10... Start Date: [...] Replace Required Details, Route to Pharmacy Electronically, [id number]... Start Date: 03/28/22 Status: Ordered Pulse Oximeter [...] JULIAN, # 60 tablet, 4 Refills, Maintenance, [facility] [id number], 152, cm, 11/06/20 10:17:00 EDT, Height, 81, [...] Team Personnel Name: Jesika Hua RN Position: [facility] RN Member Role: Primary Care Nurse Name: Milton Gross NP Position: [facility] PCO Associate Professional Member Role: PCP Address: Address: [address] [place] [address]- Care Team Related Persons Name: YASMIN FISHER Address: home [address] [place] [id number]
--- OUTSIDE RECORDS SUMMARY | 2023-07-21 13:05 | XMS_ITS | Continuity of Care Document ---
Author Name Unknown Organization [facility] Address [address] [place] [address]- Care Team Providers Care Snow Ranger Name Role Phone Renato MORRISON, Milton Loyola Primary Care Physicia n Encounter [facility] [place] Date(s): 06/29/19 - 10/27/19 [facility] [address] [place] [address]- [facility] Attending Physician: Jono Fernandez MD Admitting Physician: Jono Fernandez MD Referring Physician: Kiya Carmona Allergies, Adverse Reactions, Alerts Substance Reaction Severity [...] 18:58:54 EDT, Aerosol, Route to Pharmacy Electronically, [id number], [facility]/pharmacy #[id number], Compound Start Date: 11/02/18 Status: Ordered [...] 11/02/18 18:58:53 EDT, Route to Pharmacy Electronically, [id number], [facility]/pharmacy #[id number] Start Date: 11/02/18 Status: Ordered BD Ultra-Fine pen needles, BERTRAM 4 mm x 32 G BD Ultra-Fine pen needles, BERTRAM 4 mm x 32 G, See Instructions, # 150 each, Refills 11, Tot. [id number], Maintenance, Use for times a days with [...] 11/02/18 18:58:54 EDT, Route to Pharmacy Electronically, [id number], [facility]/pharmacy #[id number] Start Date: 11/02/18 Stop Date: 05/01/19 [...] 05/18/19 9:27:02 EDT, Route to Pharmacy Electronically, [id number], [facility]/pharmacy #[id number] Start Date: 05/18/19 Stop Date: 05/12/20 [...] Stop 01/20/20 12:40:00 EDT, 10/22/19 12:40:00 EST, [facility]/pharmacy #[id number], 152, c... Start Date: 10/22/19 Stop [...]
--- OUTSIDE RECORDS SUMMARY | 2023-07-21 13:05 | XMS_ITS | Continuity of Care Document ---
Author Name Unknown Organization [facility] Address [address] [place] [address]- Care Team Providers Care Salesperson Books Name Role Phone Renato MORRISON, Milton Loyola Primary Care Physicia n En[place] [facility] [place] [facility] [id number] Date(s): 11/06/20 - 12/06/[address] [address]- Attending Physician: Jimenez Grant Admitting Physician: AdmJimenez [...] Refills, Maintenance, 10/06/20 12:25:00 EST, [facility], [facility], 152, cm, 06/01/20 9:54:00 EDT, Height, 81, kg, 11/01/19 19:28:00 EDT, Dry Weight Start Date: 10/06/20 Status: Ordered albuterol CFC free 90 mcg/inh inhalation aerosol 2, puffs, Inhalation, Every 4 hours, PRN, # 18 Gm, Refills 11, Tot. Refills 11, Maintenance, 10/06/20 12:25:00 EST, Aerosol, Route to Pharmacy Electronically, [id number], [facility]/pharmacy #[id number], 152, cm, 06/01/20 9:54:00 EDT, Hei... [...] 10/06/20 12:25:00 EST, Route to Pharmacy Electronically, [facility]/pharmacy #[id number], 152, cm, 06/01/20 9:54:00 EDT, Height, 81, kg, 11/01/19 19:28:00 EDT, Dry Weight Start Date: 10/06/20 Status: Ordered atorvastatin 10 mg oral tablet 1 tablet = 10 mg, By Mouth, Daily, # 30 tablet, 5 Refills, Maintenance, 11/06/20 11:03:00 EDT, [facility]/pharmacy #[id number], Partial [...] Instructions, # 150 each, Refills 11, Tot. [id number], Maintenance, Use for times a days with [...] 11/28/20 10:24:00 EDT, Route to Pharmacy Electronically, [facility]/pharmacy #[id number], 152, cm, 06/01/20 9:54:00 EDT, Height, [...] 11 Refills, Maintenance, 10/06/20 12:22:00 EST, Lotion, [facility]/pharmacy #[id number], 1 application Topically 2 times a [...] 10/01/21 12:17:00 EST, 10/06/20 12:17:00 EST, Solution, [facility]/pharmacy #[id number], 152, cm, 06/01/20 9:54:00 EDT, Height, 81, kg, 11/01/19 19:28:00 EDT, Dry We... Start Date: 10/06/20 Stop Date: 10/01/21 Status: Ordered loratadine 10 mg oral tablet 10 mg, 1, tablet, By Mouth, Daily, # 30 tablet, Refills 5, Tot. Refills 5, Maintenance, 02/20/21 9:48:00 EDT, Route to Pharmacy Electronically, [facility]/pharmacy #[id number], 152, cm, 06/01/20 9:54:00 EDT, Height, [...] 10/26/20 16:17:00 EST, Route to Pharmacy Electronically, [facility]/pharmacy #[id number], 152, cm, 06/01... Start Date: 10/26/20 Stop Date: 10/21/21 Status: Ordered riboflavin 100 mg oral tablet 1 tablet = 100 mg, By Mouth, 2 times a day, # 60 tablet, 4 Refills, Maintenance, 10/06/20 12:25:00 EST, [facility]/pharmacy #[id number], 152, cm, 06/01/20 9:54:00 EDT, Height, 81, kg, 11/01/19 19:28:00 EDT, Dry Weight Start Date: 10/06/20 Stop Date: 03/05/21 Status: Ordered sulindac 200 mg oral tablet 1 tablet = 200 mg, By Mouth, 2 times a day, # 60 tablet, 2 Refills, Maintenance, 11/06/20 11:08:00 EDT, Tablet, [facility]/pharmacy #[id number], Partial fill upon patient request if the prescription is for a schedule II opioid drug., 152, cm, 11/06/20 10:17:00 EDT... Start Date: 11/06/20 Status: Ordered Vitamin D3 1000 intl units oral tablet 1 tablet = 1,000 International_Units, By Mouth, Daily, # 30 tablet, 11 Refills, Maintenance, 10/06/20 12:25:00 EST, Tablet, [facility]/pharmacy #[id number], 152, cm, 06/01/20 9:54:00 EDT, Height, [...]
--- OUTSIDE RECORDS SUMMARY | 2023-07-21 13:05 | XMS_ITS | Continuity of Care Document ---
Author Name Unknown Organization [facility] Address [address] [place] [address]- Care Team Providers Care Banquet Lead Name Role Phone Milton Gross NP Primary Care Physicia n Encounter [facility] Date(s): 05/04/21 - 06/24/[address] [address]- Attending Physician: Not on Staff, Attending MD Referring Physician: Milton Gross NP Allergies, [...] Patient Refuses 1Result Comment: NS DIL LOT [id number] EXP 11/2022 2Result Comment: DILUENT LOT#: [id number] EXP: 11/14 MFG: FRESENSIUS Medications albuterol 0.083% inhalation solution 3 mL = 2.5 mg, Inhalation, Every 6 hours, PRN for wheezing, # 25 each, 11 Refills, Maintenance, 10/06/20 12:25:00 EST, Solution, [facility]/pharmacy #[id number], 152, cm, 06/01/20 9:54:00 EDT, Height, 81, kg, 11/01/19 19:28:00 EDT, Dry Weight Start Date: 10/06/20 Status: Ordered albuterol CFC free 90 mcg/inh inhalation aerosol 2, puffs, Inhalation, Every 4 hours, PRN, # 18 Gm, Refills 11, Tot. Refills 11, Maintenance, 10/06/20 12:25:00 EST, Aerosol, Route to Pharmacy Electronically, [id number], [facility]/pharmacy #[id number], 152, cm, 06/01/20 9:54:00 EDT, Hei... [...] 10/06/20 12:25:00 EST, Route to Pharmacy Electronically, [facility]/pharmacy #[id number], 152, cm, 06/01/20 9:54:00 EDT, Height, 81, kg, 11/01/19 19:28:00 EDT, Dry Weight Start Date: 10/06/20 Status: Ordered atorvastatin 10 mg oral tablet 1 tablet = 10 mg, By Mouth, Daily, # 30 tablet, 5 Refills, Maintenance, 05/05/21 11:03:00 EDT, [facility]/pharmacy #[id number], Partial fill upon patient request if the prescription is for a schedule II opioid drug., 152, cm, 04/18/21 13:24:00 EDT, Height, 85.2, k... Start Date: 05/05/21 Stop Date: 11/01/21 Status: Ordered baclofen 5 mg oral tablet 1 tablet = 5 mg, By Mouth, 3 times a day, may cause drowsiness., # 42 tablet, 0 Refills, Maintenance, 12/14/20 11:40:00 EDT, Tablet, [facility]/pharmacy #[id number], Partial fill upon patient request if the prescription is for a schedule II opioid drug., 152, cm,... Start Date: 12/14/20 Stop Date: 12/28/20 Status: Ordered BD Ultra-Fine pen needles, BERTRAM 4 mm x 32 G BD Ultra-Fine pen needles, BERTRAM 4 mm x 32 G, See Instructions, # 150 each, Refills 11, Tot. [id number], Maintenance, Use for times a days with insulin. DM E119, 10/06/20 12:18:00 EST, Compound, 152, cm, 06/01/20 9:54:00 EDT, Height, 81, kg, 11/01/19 1... Start Date: 10/06/20 Status: Ordered BENGAY Arthritis topical cream See Instructions, rub into areas of pain and muscle tightness; instructions in Tamazight, # 1 each, 2Refills, Maintenance, 12/14/20 11:39:00 EDT, [facility]/pharmacy #[id number], Partial fill upon patient request if [...] 11/28/20 10:24:00 EDT, Route to Pharmacy Electronically, [facility]/pharmacy #[id number], 152, cm, 06/01/20 9:54:00 EDT, Height, [...] Compound Start Date: 04/18/21 Status: Ordered ergocalciferol 82769 iu oral capsule 50,000 International_Units, 1, capsule, By Mouth, Every week, # 18 capsule, Refills 0, Tot. Refills0, Maintenance, 06/01/21 13:45:00 EDT, Route to Pharmacy Electronically, [facility]/pharmacy #[id number], Partial fill upon patient request if the prescription is f... Start Date: 06/01/21 Stop Date: 09/29/21 Status: Ordered Escitalopram By Mouth, Daily, 0 Refills, Maintenance, 05/13/19 15:46:32 EDT Start Date: 05/13/19 Status: Ordered Eucerin Plus topical lotion 1 application, Topically, 2 times a day, PRN for dry skin, # 600 mL, 11 Refills, Maintenance, 10/06/20 12:22:00 EST, Lotion, [facility]/pharmacy #[id number], 1 application Topically 2 times a day,PRN:for dry skin, 152, cm, 06/01/20 9:54:00 EDT, Height, 81, kg, 03/... Start Date: 10/06/20 Status: Ordered Eucerin Plus topical lotion 1 application, Topically, 2 times a day, PRN for dry skin, # 600 mL, 1 Refills, Maintenance, 06/01/21 13:51:00 EDT, Lotion, [facility]/pharmacy #[id number], Partial fill upon patient request if [...] 06/01/21 13:48:00 EDT, Route to Pharmacy Electronically, [facility]/pharmacy #[id number], Partial fill upon patient request if the prescription is for a schedule II... Start Date: 06/01/21 Stop Date: 07/31/21 Status: Ordered Humalog 100 u/ml subcutaneous injection = 15 units, Subcutaneous Injection, 3 times a day before meals, discontinue admelog, # 15 mL, 11 Refills, Maintenance, 05/04/21 14:14:00 EDT, Solution, [facility]/pharmacy #[id number], Partial fill upon patient request if the prescription is for a schedule II opio... Start Date: 05/04/21 Status: Ordered HumaLOG KwikPen 100 units/mL injectable solution = 15 units, Subcutaneous Infusion, 3 times a day before meals, Dx E11.9. D/C admelog same dose 15 units . give kwik pen, # 15 mL, 11 Refills, Maintenance, 10/06/20 12:20:00 EST, [facility]/pharmacy #[id number], 152, cm, 06/01/20 9:54:00 EDT, Height, 81, kg, ... Start Date: 10/06/20 Stop Date: 10/01/21 Status: Ordered Imitrex 50 mg oral tablet See Instructions, 1 tablet By Mouth at onset of headache. May repeat once in 2 hours. Not > 4/ week., # 9 tablet, 0 Refills, Maintenance, 01/03/20 13:01:00 EDT, [facility]/pharmacy #[id number], 152, cm, 11/01/19 19:28:00 EDT, Height, [...] 09/26/22 12:17:00 EST, 10/01/21 12:17:00 EST, Solution, [facility]/pharmacy #[id number], 152, cm, 05/04/21 13:50:00 EDT, Height, 85.2, kg, 04/18/21 13:24:00 EDT, Dry... Start Date: 10/01/21 Stop Date: 09/26/22 Status: Ordered loratadine 10 mg oral tablet See Instructions, ASAD MIRANDA, # 30 tablet, Refills 5, Maintenance, Instructions Replace Required Details, Route to Pharmacy Electronically, [facility] STORE [id number], 152, cm, 11/06/20 10:17:00 EDT, Height, 81, kg, 11/01/19 19:28:00 EDT, . Start Date: 04/03/21 Status: Ordered meclizine 25 mg oral tablet See Instructions, TOME KRYSTEN TABLETA POR VIA ORAL GIBRAN VECES AL JULIAN CUANDO SEA NECESARIO DIZZINESS, #50 tablet, 1 Refills, Acute, [facility] STORE [id number], 152, cm, 11/06/20 10:17:00 EDT, Height, 81, kg, 11/01/19 19:28:00 EDT, Dry Weight Start Date: 12/07/20 Status: Ordered meclizine 25 mg oral tablet 1 tablet = 25 mg, By Mouth, 3 times a day, PRN for dizziness, # 30 tablet, 0 Refills, Maintenance, 04/08/21 22:48:00 EDT, Tablet, [facility]/pharmacy #[id number], Partial fill upon patient request if [...] 10/26/20 16:17:00 EST, Route to Pharmacy Electronically, [facility]/pharmacy #[id number], 152, cm, 06/01... Start Date: 10/26/20 Stop Date: 10/21/21 Status: Ordered [employer] COVID-19 Vaccine 30 mcg/0.3 mL preservative-free intramuscular [...] 2 Refills, Maintenance, 12/14/20 11:44:00 EDT, Tablet, [facility]/pharmacy #[id number], Partial fill upon patient request if the prescription is for a schedule II opioid drug., 152, cm, 11/06/20 10:17:00 EDT... Start Date: 12/14/20 Status: Ordered Vitamin B2 100 mg oral tablet See Instructions, ASAD SHAWA DOS VECES AL JULIAN, # 60 tablet, 4 Refills, Maintenance, [facility] [id number], 152, cm, 11/06/20 10:17:00 EDT, Height, 81, [...]
--- OUTSIDE RECORDS SUMMARY | 2023-07-21 13:05 | XMS_ITS | Continuity of Care Document ---
Author Name Unknown Organization [facility] Address [address] [place] [address]- Care Team Providers Care Inventory Control Analyst Name Role Phone Milton Gross NP Primary Care Physicia n Encounter [facility] Date(s): 05/08/23 - 06/07/[address] [address]- Allergies, Adverse Reactions, Alerts Substance Reaction Severity Status traMADol tongue numbness--but she fell near [facility] Active Immunizations Given and Recorded Vaccine Date Status Refusal Reason [id number] bivalent booster vax 07/17/22 Given influenza virus vaccine, inactivated 07/17/22 Give n influenza virus vaccine, inactivated 06/01/20 Give n influenza virus vaccine, inactivated 05/13/17 Give n SARS-CoV-2 (COVID-19) mRNA BNT-162b2 vac 1 05/25/21 Given SARS-CoV-2 (COVID-19) mRNA BNT-162b2 vac 2 05/04/21 Given hepatitis B adult vaccine 01/18/16 Given pneumococcal 23-valent vaccine 01/18/16 Given tetanus/diphtheria/pertussis, acel(Tdap) 01/18/16 Given 1Result Comment: NS DIL LOT [id number] EXP 11/2022 2Result Comment: DILUENT LOT#: [id number] EXP: 11/14 MFG: FRESENSIUS Medications albuterol 0.083% [...] = 5 mg, By Mouth, Daily, by [facility] records. Follow speciality, # 30 tablet, 2 Refills, Maintenance, 03/06/23 16:52:00 EDT, Tablet, [facility]/pharmacy #[id number], Partial fill upon patient request if theprescription is for a schedule II opioid drug., 145... Start Date: 03/06/23 Stop Date: 06/04/23 Status: Ordered Aspirin Low Dose 81 mg oral delayed release tablet See Instructions, TOME KRYSTEN TABLETA TODOS LOS MIRANDA by [facility] records continue, # 30 tablet, 11 Refills, 07/04/22 11:40:00 EST, [facility]pharmacy #[id number], 149.8, cm, 07/04/22 11:20:00 EST, Height, 83.3, kg, 06/14/22 18:50:00 EDT, Dry Weight Start Date: 07/04/22 Status: Ordered atorvastatin 10 mg oral tablet See Instructions, TOMSole KRYSTEN TABLETA TODOS LOS MIRANDA, # 30 tablet, 11 Refills, 05/24/22 14:42:00 EDT, [id number], 149.86, cm, 05/24/22 13:53:00 EDT, Height, 85.7, kg, 07/24/21 14:26:00 EST, Dry Weight Start Date: 05/24/22 Status: Ordered BD Ultra-Fine pen needles, BERTRAM 4 mm x 32 G BD Ultra-Fine pen needles, BERTRAM 4 mm x 32 G, See Instructions, # 150 each, Refills 11, Tot. [id number], Maintenance, Use for times a days with [...] Compound Start Date: 07/25/21 Status: Ordered ergocalciferol 61224 iu oral capsule 1, capsule, By Mouth, Every week, # 4 capsule, Refills 4, Maintenance, 10/22/22 15:42:00 EST[id number], 149.8, cm, 07/22/22 9:38:00 EST, Height, 83.3, kg, 06/14/22 18:50:00 EDT, Dry Weight Start Date: 10/22/22 Status: Ordered Escitalopram = 20 mg, By Mouth, Daily, 0 Refills, Maintenance, 05/13/19 15:46:32 EDT Start Date: 05/13/19 Status: Ordered Eucerin Plus topical lotion 1 application, Topically, 2 times a day, PRN for dry skin, # 600 mL, 11 Refills, Maintenance, 01/17/23 13:42:00 EDT, Lotion, [facility]/pharmacy #[id number], Partial fill upon patient request if the prescription is for a schedule II opioid drug., 1 application Top... Start Date: 01/17/23 Stop Date: 01/12/24 Status: Ordered Eucerin Plus topical lotion 1 application, Topically, 2 times a day, PRN for dry skin, # 600 mL, 1 Refills, Maintenance, 05/24/22 14:28:00 EDT, Lotion, [facility]/pharmacy #[id number], Partial fill upon [...] sites. stop novolog due insurance issues. in panamanian, # 15 mL, 11 Refills, Hard Stop 08/07/23 12:49:00 EST, 08/12/22 12:49:00 EST,... Start Date: 08/12/22 Stop Date: 08/07/23 Status: Ordered Insulin Lispro Scot KwikPen 100 units/mL injectable solution = 15 units, Subcutaneous Infusion, 3 times a day before meals, with breakfast and lunch rotate injection sites. stop novolog due insurance issues. in panamanian, # 15 mL, 11 Refills, Maintenance, 08/07/23 12:49:00 EST, [facility]/pharmacy #[id number], Partial fill... Start Date: 08/07/23 Stop [...] 09/10/25 12:17:00 EST, 09/15/24 12:17:00 EST, Solution, [facility]/pharmacy #[id number], 149.8, cm, 07/22/22 9:38:00 EST, Height, 83.3, kg, 06/14/22 18:50:00 EDT, . Start Date: 09/15/24 Stop Date: 09/10/25 Status: Ordered loratadine 10 mg oral tablet See Instructions, ASAD JORDANS, # 30 tablet, Refills 5, Tot. Refills 5, 05/24/2214:42:00 EDT, Instructions Replace Required Details, Route to Pharmacy Electronically, [facility]/pharmacy#[id number], 149.86, cm, 05/24/22 13:53:00 EDT, Height, 8... Start Date: 05/24/22 Status: Ordered meclizine 25 mg oral tablet 1 tablet = 25 mg, By Mouth, 3 times a day, PRN for dizziness, # 30 tablet, 0 Refills, Maintenance, 05/31/22 13:26:00 EDT, Tablet, [facility]/pharmacy #[id number], Partial fill upon patient request if the prescription is for a schedule II opioid drug., 149.86, cm,... Start Date: 05/31/22 Status: Ordered Metoprolol Tartrate 25 mg oral tablet 1 tablet, By Mouth, 2 times a day, # 180 tablet, 0 Refills, Maintenance, 04/07/23 14:20:00 EDT, [id number], 145, cm, 01/29/23 8:36:00 EDT, Height, 81, kg, 01/05/23 21:32:00 EDT, Dry Weight Start Date: 04/07/23 Stop Date: 07/06/23 Status: Ordered Nebulizer/Compressor See Instructions, # 1 [...] Replace Required Details, Route to Pharmacy Electronically, [id number]... Start Date: 01/17/23 Status: Ordered Pulse Oximeter Pulse Oximeter, See Instructions, # 1 each, Refills 0, Tot. Refills 0, Maintenance, For COVID Diagnosis (U07.1), 07/17/22 12:09:00 EST, Supply, 149.8, cm, 07/17/22 10:22:00 EST, Height, 83.3, kg, 06/14/22 18:50:00 EDT, Dry Weight Start Date: 07/17/22 Status: Ordered Vitamin B2 100 mg oral tablet See Instructions, ASAD KRYSTEN TABLETA DOS VECES AL JULIAN, # 60 tablet, 4 Refills, Maintenance, [id number], 152, cm, 11/06/20 10:17:00 EDT, Height, 81, kg, 11/01/19 19:28:00 EDT, Dry Weight Start Date: 03/07/21 Status: Ordered Zithromax 250 mg oral tablet 1 pack/packet, By Mouth, Once, # 6 tablet, 0 Refills, Soft Stop, 01/05/23 23:08:00 EDT, Tablet, [id number], Partial fill upon patient request if the [...] Team Personnel Name: Jesika Hua RN Position: [facility] RN Member Role: Primary Care Nurse Name: Milton Gross NP Position: [facility] PCO Associate Professional Member Role: PCP Address: Address: [address] [place] [address]- Care Team Related Persons Name: YASMIN FISHER Address: home [address] [place] [id number]
--- OUTSIDE RECORDS SUMMARY | 2023-07-21 13:05 | XMS_ITS | Continuity of Care Document ---
Author Name Unknown Organization [facility] Address [address] [place] [address]- Care Team Providers Care Concrete Finisher Name Role Phone Renato PRINT MANAGER, Milton Loyola Primary Care Physicia n [facility] [id number] Date(s): 07/28/20 - 08/27/[address] [facility] [address] [address]- Attending Physician: Jimenez Grant Admitting Physician: Jimenez [...] 11 Refills, Maintenance, 06/01/20 10:23:00 EDT, Solution, [facility]/pharmacy #[id number], 152, cm, 06/01/20 9:54:00 EDT, Height, 81, kg, 11/01/19 19:28:00 EDT, Dry Weight Start Date: 06/01/20 Status: Ordered albuterol CFC free 90 mcg/inh inhalation aerosol 2, puffs, Inhalation, Every 4 hours, PRN, # 18 Gm, Refills 11, Tot. Refills 11, Maintenance, 06/01/20 10:23:00 EDT, Aerosol, Route to Pharmacy Electronically, [id number], [facility]/pharmacy #[id number], 152, cm, 06/01/20 9:54:00 EDT, Hei... [...] 06/01/20 10:23:00 EDT, Route to Pharmacy Electronically, [facility]/pharmacy #[id number], 152, cm, 06/01/20 9:54:00 EDT, Height, 81, kg, 11/01/19 19:28:00 EDT, Dry Weight Start Date: 06/01/20 Status: Ordered BD Ultra-Fine pen needles, BERTRAM 4 mm x 32 G BD Ultra-Fine pen needles, BERTRAM 4 mm x 32 G, See Instructions, # 150 each, Refills 11, Tot. [id number], Maintenance, Use for times a days with [...] 06/01/20 10:24:00 EDT, Route to Pharmacy Electronically, [facility]/pharmacy #[id number], 152, cm, 06/01/20 9:54:00 EDT, Height, [...] 11 Refills, Maintenance, 06/01/20 10:19:00 EDT, Lotion, [facility]/pharmacy #[id number], 1 application Topically 2 times a [...] tablet, 0 Refills, Maintenance, 01/03/20 13:01:00 EDT, [facility]/pharmacy #[id number], 152, cm, 11/01/19 19:28:00 EDT, Height, [...] 10/26/20 16:17:00 EST, Route to Pharmacy Electronically, [facility]/pharmacy #[id number], 152, cm, 06/01/20 9:54:00 EDT, Height, 81, kg,... Start Date: 10/26/20 Stop Date: 10/21/21 Status: Ordered metoprolol 25 mg oral tablet 25 mg, 1, tablet, By Mouth, 2 times a day, for 90 days, This is an increase in dose., # 180 tablet,Refills 3, Tot. Refills 3, Hard Stop 10/26/20 16:17:00 EST, 11/01/19 16:17:00 EDT, Route to Pharmacy Electronically, [facility]/pharmacy #[id number], 152, cm, 10/22... Start Date: 11/01/19 Stop Date: 10/26/20 Status: Ordered riboflavin 100 mg oral tablet 1 tablet = 100 mg, By Mouth, 2 times a day, # 60 tablet, 4 Refills, Maintenance, 01/03/20 13:00:00 EDT, [facility]/pharmacy #[id number], 152, cm, 11/01/19 19:28:00 EDT, Height, 81, kg, 11/01/19 19:28:00 EDT, Dry Weight Start Date: 01/03/20 Stop Date: 06/01/20 Status: Ordered sulindac 150 mg oral tablet See Instructions, TOME KRYSTEN TABLETA POR VIA ORAL DOS VECES AL JULIAN CUANDO SEA NECESARIO, # 60 tablet,2 Refills, 06/01/20 10:19:00 EDT, [facility]/pharmacy #[id number], 152, cm, 06/01/20 9:54:00 EDT, Height, [...]
--- OUTSIDE RECORDS SUMMARY | 2023-07-21 13:05 | XMS_ITS | Continuity of Care Document ---
Author Name Unknown Organization [facility] Address [address] [place] [address]- Care Team Providers Care Brass Pourer Name Role Phone Renato MORRISON, Milton Loyola Primary Care Physicia n Encounter [place] Date(s): 11/03/20 - 12/22/20 [facility] [address] [place] [address]- Attending Physician: Sky MORRISON, Samreen Nguyen Admitting Physician: Sky MORRISON, Samreen Nguyen Referring Physician: Milton Gross NP Allergies, Adverse [...] 12/22/20 13:56:00 EDT, Route to Pharmacy Electronically, [facility]/pharmacy #[id number], Partial fill upon patient request if... Start Date: 12/22/20 Stop Date: 01/06/21 Status: Ordered albuterol 0.083% inhalation solution 3 mL = 2.5 mg, Inhalation, Every 6 hours, PRN for wheezing, # 25 each, 11 Refills, Maintenance, 10/06/20 12:25:00 EST, Solution, [facility]/pharmacy #[id number], 152, cm, 06/01/20 9:54:00 EDT, Height, 81, kg, 11/01/19 19:28:00 EDT, Dry Weight Start Date: 10/06/20 Status: Ordered albuterol CFC free 90 mcg/inh inhalation aerosol 2, puffs, Inhalation, Every 4 hours, PRN, # 18 Gm, Refills 11, Tot. Refills 11, Maintenance, 10/06/20 12:25:00 EST, Aerosol, Route to Pharmacy Electronically, [id number], [facility]/pharmacy #[id number], 152, cm, 06/01/20 9:54:00 EDT, [...] EST, Route to Pharmacy Electronically, [facility]/pharmacy #[id number], 152, cm, 06/01/20 9:54:00 EDT, Height, 81, kg, 11/01/19 19:28:00 EDT, Dry Weight Start Date: 10/06/20 Status: Ordered atorvastatin 10 mg oral tablet 1 tablet = 10 mg, By Mouth, Daily, # 30 tablet, 5 Refills, Maintenance, 11/06/20 11:03:00 EDT, [facility]/pharmacy #[id number], Partial fill upon patient request [...] Maintenance, 12/14/20 11:40:00 EDT, Tablet, [facility]/pharmacy #[id number], Partial fill upon patient request if the prescription is for a schedule II opioid drug., 152, cm,... Start Date: 12/14/20 Stop Date: 12/28/20 Status: Ordered BD Ultra-Fine pen needles, BERTRAM 4 mm x 32 G BD Ultra-Fine pen needles, BERTRAM 4 mm x 32 G, See Instructions, # 150 each, Refills 11, Tot. [id number], Maintenance, Use for times a days with insulin. DM E119, 10/06/20 12:18:00 EST, Compound, 152, cm, 06/01/20 9:54:00 EDT, Height, 81, kg, 11/01/19 1... Start Date: 10/06/20 Status: Ordered BENGAY Arthritis topical cream See Instructions, rub into areas of pain and muscle tightness; instructions in Malawian, # 1 each, 2Refills, Maintenance, 12/14/20 11:39:00 EDT, [facility]/pharmacy #[id number], Partial fill upon patient request [...] EDT, Route to Pharmacy Electronically, [facility]/pharmacy #[id number], 152, cm, 06/01/20 9:54:00 EDT, [...] Maintenance, 10/06/20 12:21:00 EST, Solution, [facility]/pharmacy #[id number], Partial fill upon patient request [...] EST, 10/06/20 12:17:00 EST, Solution, [facility]/pharmacy #[id number], 152, cm, 06/01/20 9:54:00 EDT, Height, 81, kg, 11/01/19 19:28:00 EDT, Dry We... Start Date: 10/06/20 Stop Date: 10/01/21 Status: Ordered loratadine 10 mg oral tablet 10 mg, 1, tablet, By Mouth, Daily, # 30 tablet, Refills 5, Tot. Refills 5, Maintenance, 02/20/21 9:48:00 EDT, Route to Pharmacy Electronically, [facility]/pharmacy #[id number], 152, cm, 06/01/20 9:54:00 EDT, [...] #50 tablet, 1 Refills, Acute, [facility] ST[id number], 152, cm, 11/06/20 10:17:00 EDT, Height, 81, kg, 11/01/19 19:28:00 EDT, Dry Weight Start Date: 12/07/20 Status: Ordered metoprolol 25 mg oral tablet 25 mg, 1, tablet, By Mouth, 2 times a day, for 90 days, This is an increase in dose., # 180 tablet,Refills 3, Tot. Refills 3, Hard Stop 10/21/21 16:17:00 EST, 10/26/20 16:17:00 EST, [id number] 152, cm, 06/01... Start Date: 10/26/20 Stop Date: 10/21/21 Status: Ordered riboflavin 100 mg oral tablet 1 tablet = 100 mg, By Mouth, 2 times a day, # 60 tablet, 4 Refills, Maintenance, 10/06/20 12:25:00 EST, [facility]/pharmacy #[id number], 152, cm, 06/01/20 9:54:00 EDT, Height, 81, kg, 11/01/19 19:28:00 EDT, Dry Weight Start Date: 10/06/20 Stop Date: 03/05/21 Status: Ordered sulindac 200 mg oral tablet 1 tablet = 200 mg, By Mouth, 2 times a day, # 60 tablet, 2 Refills, Maintenance, 12/14/20 11:44:00 EDT, Tablet, [facility]/pharmacy #[id number], Partial fill upon patient request if the prescription is for a schedule II opioid drug., 152, cm, 11/06/20 10:17:00 EDT... Start Date: 12/14/20 Status: Ordered Vitamin D3 1000 intl units oral tablet 1 tablet = 1,000 International_Units, By Mouth, Daily, # 30 tablet, 11 Refills, Maintenance, 10/06/20 12:25:00 EST, Tablet, [facility]/pharmacy #[id number], 152, cm, 06/01/20 9:54:00 EDT, [...]
--- OUTSIDE RECORDS SUMMARY | 2023-07-21 13:05 | XMS_ITS | Continuity of Care Document ---
Author Name Unknown Organization [facility] Address [address] [place] [address]- Care Team Providers Care Head Of Insight Name Role Phone Milton Gross NP Primary Care Physicia n Encounter [facility] [id number] Date(s): 01/17/23 - 02/16/[address] [address]- Attending Physician: Jimenez Grant Admitting Physician: Jimenez Grant Referring Physician: AdmtrJimenez Allergies, Adverse Reactions, Alerts Substance Reaction Severity Status traMADol tongue numbness--but she fell near [place] Active Immunizations Given and Recorded Vaccine Date Status Refusal Reason [id number] bivalent booster vax 07/17/22 Given influenza virus [...] Patient Refuses 1Result Comment: NS DIL LOT [id number] EXP 11/2022 2Result Comment: DILUENT LOT#: [id number] EXP: 11/14 MFG: FRESENSIUS Medications albuterol 0.083% [...] = 5 mg, By Mouth, Daily, by [facility] records. Follow speciality, # 30 tablet, 2 Refills, Maintenance, 03/06/23 16:52:00 EDT, Tablet, [id number], Partial fill upon patient request if theprescription is for a schedule II opioid drug., 145... Start Date: 03/06/23 Stop Date: 06/04/23 Status: Ordered apixaban 5 mg oral tablet 1 tablet = 5 mg, By Mouth, Daily, for 30 days, by [facility] records, # 30 tablet, 2 Refills, Hard Stop 03/06/23 16:52:00 EDT, 12/06/22 16:52:00 EDT, Tablet, [id number], Partial fill upon patient request if the prescription is for a schedule II opi... Start Date: 12/06/22 Stop Date: 03/06/23 Status: Ordered Aspirin Low Dose 81 mg oral delayed release tablet See Instructions, ASAD SHAWA TODOS LOS MIRANDA by [facility] records continue, # 30 tablet, 11 Refills, 07/04/22 11:40:00 EST, [id number], 149.8, cm, 07/04/22 11:20:00 EST, Height, 83.3, kg, 06/14/22 18:50:00 EDT, Dry Weight Start Date: 07/04/22 Status: Ordered atorvastatin 10 mg oral tablet See Instructions, ASAD BURKETT TODOS LOS MIRANDA, # 30 tablet, 11 Refills, 05/24/22 14:42:00 EDT, [id number], 149.86, cm, 05/24/22 13:53:00 EDT, Height, 85.7, kg, 07/24/21 14:26:00 EST, Dry Weight Start Date: 05/24/22 Status: Ordered BD Ultra-Fine pen needles, BERTRAM 4 mm x 32 G BD Ultra-Fine pen needles, BERTRAM 4 mm x 32 G, See Instructions, # 150 each, Refills 11, Tot. [id number], Maintenance, Use for times a days with [...] Compound Start Date: 07/25/21 Status: Ordered ergocalciferol 25668 iu oral capsule 1, capsule, By Mouth, Every week, # 4 capsule, Refills 4, Maintenance, 10/22/22 15:42:00 EST, Rout[facility] Pharmacy Electronically, [id number], 149.8, cm, 07/22/22 9:38:00 EST, Height, 83.3, kg, 06/14/22 18:50:00 EDT, Dry Weight Start Date: 10/22/22 Status: Ordered Escitalopram = 20 mg, By Mouth, Daily, 0 Refills, Maintenance, 05/13/19 15:46:32 EDT Start Date: 05/13/19 Status: Ordered Eucerin Plus topical lotion 1 application, Topically, 2 times a day, PRN for dry skin, # 600 mL, 11 Refills, Maintenance, 01/17/23 13:42:00 EDT, Lotion, [facility]/pharmacy #[id number], Partial fill upon patient request if the prescription is for a schedule II opioid drug., 1 application Top... Start Date: 01/17/23 Stop Date: 01/12/24 Status: Ordered Eucerin Plus topical lotion 1 application, Topically, 2 times a day, PRN for dry skin, # 600 mL, 1 Refills, Maintenance, 05/24/22 14:28:00 EDT, Lotion, [facility]/pharmacy #[id number], Partial fill upon [...] tablet, 0 Refills, Maintenance, 01/03/20 13:01:00 EDT, [facility]/pharmacy #[id number], 152, cm, 11/01/19 19:28:00 EDT, Height, 81, kg, 11/01/19 19:28:00 EDT,... Start Date: 01/03/20 Status: Ordered Insulin Lispro Scot KwikPen 100 units/mL injectable solution = 15 units, Subcutaneous Infusion, 3 times a day before meals, for 30 days, with breakfast and lunch rotate injection sites. stop novolog due insurance issues. in egyptian, # 15 mL, 11 Refills, Hard Stop 08/07/23 12:49:00 EST, 08/12/22 12:49:00 EST,... Start Date: 08/12/22 Stop Date: 08/07/23 Status: Ordered Insulin Lispro Scot KwikPen 100 units/mL injectable solution = 15 units, Subcutaneous Infusion, 3 times a day before meals, with breakfast and lunch rotate injection sites. stop novolog due insurance issues. in egyptian, # 15 mL, 11 Refills, Maintenance, 08/07/23 12:49:00 EST, [facility]/pharmacy #[id number], Partial fill... Start Date: 08/07/23 [...] 09/10/25 12:17:00 EST, 09/15/24 12:17:00 EST, Solution, [facility]/pharmacy #[id number], 149.8, cm, 07/22/22 9:38:00 EST, Height, 83.3, kg, 06/14/22 18:50:00 EDT, . Start Date: 09/15/24 Stop Date: 09/10/25 Status: Ordered loratadine 10 mg oral tablet See Instructions, ASAD SHAWA TODOS [place] MIRANDA, # 30 tablet, Refills 5, Tot. Refills 5, 05/24/2214:42:00 EDT, Instructions Replace Required Details, Route to Pharmacy Electronically, [facility]/pharmacy#[id number], 149.86, cm, 05/24/22 13:53:00 EDT, Height, 8... Start Date: 05/24/22 Status: Ordered meclizine 25 mg oral tablet 1 tablet = 25 mg, By Mouth, 3 times a day, PRN for dizziness, # 30 tablet, 0 Refills, Maintenance, 05/31/22 13:26:00 EDT, Tablet, [facility]/pharmacy #[id number], Partial fill upon [...] 05/31/22 13:26:00 EDT, [id number] 149.86, cm, 10... Start Date: [...] Replace Required Details, Route to Pharmacy Electronically, [id number]... Start Date: 01/17/23 Status: Ordered Pulse Oximeter [...] JULIAN, # 60 tablet, 4 Refills, Maintenance, [facility] [id number], 152, cm, 11/06/20 10:17:00 EDT, Height, 81, kg, 11/01/19 19:28:00 EDT, Dry Weight Start Date: 03/07/21 Status: Ordered Zithromax 250 mg oral tablet 1 pack/packet, By Mouth, Once, # 6 tablet, 0 Refills, Soft Stop, 01/05/23 23:08:00 EDT, Tablet, [facility]/pharmacy #[id number], Partial fill upon patient request if the [...] 100 in lifetime) entered on: 01/29/23 Sex Cardiology Consult note * Event Display: Consult Note Cardiology Authored Date: [id number] Note * Amber Ramirez: PERFORM, SIGN, VERIFY Event Display: Patient Education/Instruction Authored Date: [id number] [facility] Clinical Summary Person Information Visit Date 03/28/2015 10:20 AM Name ZAID DELEON Age 44 Years 1970 12:00 AM PCP Renato MORRISON, Milton Loyola PCP Sex Female Race White Ethnicity / Language Malaysian Reason for Visit: Allergy Info: NKA Smoking [...] wheezes and PRN Durable Medical Equipment (Pen Edgar, 31 G x 8 mm BD Ultra Fine III) , See Instructions, use as directed for Type 1 Diabetes Mellitus. DM 250.02, 30 days, Refills: 5 Durable Medical Equipment (Pen Edgar, 31 G x 8 mm BD Ultra [...] 1 tablet, Oral, Daily, please print in egyptian, Refills: 11 Future Orders No future orders [...] primary care provider, you may find a [facility] provider by calling [facility] at [phone]. For information about the plan of care [...] VERIFY Event Display: Patient Education/Instruction Authored Date: [id number] [facility] Clinical Summary Person Information Visit Date 03/28/2015 10:20 AM Name ZAID DELEON Age 44 Years 1970 12:00 AM PCP Milton Gross NP PCP Sex Female Race White Ethnicity / Language Malaysian Reason for Visit: Allergy Info: NKA Smoking [...] wheezes and PRN Durable Medical Equipment (Pen Edgar, 31 G x 8 mm BD Ultra Fine III) , See Instructions, use as directed for Type 1 Diabetes Mellitus. DM 250.02, 30 days, Refills: 5 Durable Medical Equipment (Pen Edgar, 31 G x 8 mm BD Ultra [...] 1 tablet, Oral, Daily, please print in egyptian, Refills: 11 Future Orders No future orders [...] primary care provider, you may find a [facility] provider by calling [facility] at [phone]. For information about the plan of care [...] Care Nurse Name: Milton Gross NP Position: [facility] PCO Associate Professional Member Role: PCP Address: Address: [address] [place] [address]- Care Team Related Persons Name: NATALIA YASMIN Address: home [address] [address]
--- OUTSIDE RECORDS SUMMARY | 2023-07-21 13:05 | XMS_ITS | Continuity of Care Document ---
Author Name Unknown Organization [facility] Address [address] [place] [address]- Care Team Providers Care Office Service Coordinator Name Role Phone Renato MORRISON, Milton Loyola Primary Care Physicia n [place] [facility] [place] 08/20/21 - 09/19/21 [facility] [address] [place] [address]- Allergies, Adverse Reactions, Alerts Substance Reaction Severity [...] Patient Refuses 1Result Comment: NS DIL LOT [id number] EXP 11/2022 2Result Comment: DILUENT LOT#: [id number] EXP: 11/14 MFG: FRESENSIUS Medications albuterol 0.083% [...] 12:25:00 EST, Aerosol, Route to Pharmacy Electronically, [id number], [facility]/pharmacy #[id number], 152, cm, 06/01/20 [...] 10/06/20 12:25:00 EST, Route to Pharmacy Electronically, [facility]/pharmacy #[id number], 152, cm, 06/01/20 9:54:00 EDT, Height, 81, kg, 11/01/19 19:28:00 EDT, Dry Weight Start Date: 10/06/20 Status: Ordered atorvastatin 10 mg oral tablet 1 tablet = 10 mg, By Mouth, Daily, # 30 tablet, 5 Refills, Maintenance, 05/05/21 11:03:00 EDT, [facility]/pharmacy #[id number], Partial fill upon patient request if the prescription is for a schedule II opioid drug., 152, cm, 04/18/21 13:24:00 EDT, Height, 85.2, k... Start Date: 05/05/21 Stop Date: 11/01/21 Status: Ordered BD Ultra-Fine pen needles, BERTRAM 4 mm x 32 G BD Ultra-Fine pen needles, BERTRAM 4 mm x 32 G, See Instructions, # 150 each, Refills 11, Tot. [id number], Maintenance, Use for times a days with [...] Mouth, 2 times a day, with food English label, # 60 tablet, 3 Refills, Maintenance, 07/24/21 15:01:00 EST, [facility]/pharmacy #[id number], Partial fill upon patient request if the prescription is for a schedule II opioid drug., 152, cm, 3... Start Date: 07/24/21 Stop Date: 11/21/21 Status: Ordered ergocalciferol 20009 iu oral capsule 50,000 International_Units, 1, capsule, By Mouth, Every week, # 18 capsule, Refills 0, Tot. Refills0, Maintenance, 06/01/21 13:45:00 EDT, Route to Pharmacy Electronically, [facility]/pharmacy #[id number], Partial fill upon [...] 1 Refills, Maintenance, 06/01/21 13:51:00 EDT, Lotion, [facility]/pharmacy #[id number], Partial fill upon [...] 11 Refills, Maintenance, 05/04/21 14:14:00 EDT, Solution, [facility]/pharmacy #[id number], Partial fill upon patient request if the prescription is for a schedule II opio... Start Date: 05/04/21 Status: Ordered Imitrex 50 mg oral tablet See Instructions, 1 tablet By Mouth at onset of headache. May repeat once in 2 hours. Not > 4/ week., # 9 tablet, 0 Refills, Maintenance, 01/03/20 13:01:00 EDT, [facility]/pharmacy #[id number], 152, cm, 11/01/19 [...] 09/26/22 12:17:00 EST, 10/01/21 12:17:00 EST, Solution, [facility]/pharmacy #[id number], 152, cm, 05/04/21 13:50:00 EDT, Height, 85.2, kg, 04/18/21 13:24:00 EDT, Dry... Start Date: 10/01/21 Stop Date: 09/26/22 Status: Ordered loratadine 10 mg oral tablet See Instructions, ASAD BURKETT TODOS [place] MIRANDA, # 30 tablet, Refills 5, Maintenance, Instructions Replace Required Details, Route to Pharmacy Electronically, [facility] ST[facility] [id number], 152, cm, 11/06/20 10:17:00 EDT, Height, 81, kg, 11/01/19 19:28:00 EDT, . Start Date: 04/03/21 Status: Ordered meclizine 25 mg oral tablet 1 tablet = 25 mg, By Mouth, 3 times a day, PRN for dizziness, # 30 tablet, 0 Refills, Maintenance, 04/08/21 22:48:00 EDT, Tablet, [facility]/pharmacy #[id number], Partial fill upon [...] 10/26/20 16:17:00 EST, Route to Pharmacy Electronically, [facility]/pharmacy #[id number], 152, cm, 06/01... Start Date: 10/26/20 Stop Date: 10/21/21 Status: Ordered GlobeIn COVID-19 Vaccine 30 mcg/0.3 mL preservative-free intramuscular [...] JULIAN, # 60 tablet, 4 Refills, Maintenance, [facility] [id number], 152, cm, 11/06/20 10:17:00 EDT, Height, 81, [...]
--- OUTSIDE RECORDS SUMMARY | 2023-07-21 13:05 | XMS_ITS | Continuity of Care Document ---
Author Name Unknown Organization [facility] Address [address] [place] [address]- Care Team Providers Care Fellmongery Worker Name Role Phone Renato MORRISON, Milton Loyola Primary Care Physicia n Encounter [facility] [place] Date(s): 11/16/19 - 11/23/[address] [address]- [facility] Attending Physician: Hemant Delgado MD Allergies, Adverse Reactions, [...] Stop 10/16/20 12:40:00 EST, 10/22/19 12:40:00 EST, [facility]/pharmacy #447... Start Date: 10/22/19 Stop [...] 18:58:54 EDT, Aerosol, Route to Pharmacy Electronically, [id number], [facility]/pharmacy #[id number], Compound Start Date: 11/02/18 [...] 11/02/18 18:58:53 EDT, Route to Pharmacy Electronically, [id number], [facility]/pharmacy #[id number] Start Date: 11/02/18 Status: Ordered BD Ultra-Fine pen needles, BERTRAM 4 mm x 32 G BD Ultra-Fine pen needles, BERTRAM 4 mm x 32 G, See Instructions, # 150 each, Refills 11, Tot. [id number], Maintenance, Use for times a days with [...] 11/02/18 18:58:54 EDT, Route to Pharmacy Electronically, [id number], [facility]/pharmacy #[id number] Start Date: 11/02/18 Stop [...] 11/16/19 10:57:00 EDT, Route to Pharmacy Electronically, [facility]/pharmacy #[id number], 152, cm, 11/01/19 19:28:00 [...] 11/01/19 16:17:00 EDT, Route to Pharmacy Electronically, [facility]/pharmacy #[id number], 152, cm, 10/22/19 15:02:00 [...] Stop 01/20/20 12:40:00 EDT, 10/22/19 12:40:00 EST, [facility]/pharmacy #[id number], 152, c... Start Date: 10/22/19 [...]
--- OUTSIDE RECORDS SUMMARY | 2023-07-21 13:06 | XMS_ITS | Continuity of Care Document ---
Author Name Unknown Organization [facility] Address [address] [place] [address]- Care Team Providers Care District Court Administrator Name Role Phone Milton Gross NP Primary Care Physicia n Encounter [facility] Date(s): 11/01/21 - 12/15/[address] [address]- Attending Physician: Not on Staff, Attending MD Referring Physician: Milton Gross NP Allergies, Adverse Reactions, Alerts Substance Reaction Severity Status traMADol tongue numbness--but she fell near [facility] Active Immunizations Given and Recorded [...] Patient Refuses 1Result Comment: NS DIL LOT [id number] EXP 11/2022 2Result Comment: DILUENT LOT#: [id number] EXP: 11/14 MFG: FRESENSIUS Medications albuterol 0.083% [...] TOLOMAS MIRANDA, # 30 tablet, 11 Refills, [facility], 149.86, cm, 08/15/21 11:29:00 EST, Height, 85.7, kg, 07/24/21 14:26:00 EST, Dry Weight Start Date: 10/16/21 Status: Ordered atorvastatin 10 mg oral tablet See Instructions, ASAD BASHIR TABLETA TOCursogram MIRANDA, # 30 tablet, 5 Refills, [facility] 65468, 149.86,cm, 08/15/21 11:29:00 EST, Height, 85.7, kg, 07/24/21 14:26:00 EST, Dry Weight Start Date: 10/29/21 Status: Ordered BD Ultra-Fine pen needles, BERTRAM 4 mm x 32 G BD Ultra-Fine pen needles, BERTRAM 4 mm x 32 G, See Instructions, # 150 each, Refills 11, Tot. [id number], Maintenance, Use for times a days with [...] Mouth, 2 times a day, with food Arabic label, # 60 tablet, 3 Refills, Maintenance, 07/24/21 15:01:00 EST, [facility]/pharmacy #[id number], Partial fill upon patient request if the prescription is for a schedule II opioid drug., 152, cm, 06/27... Start Date: 07/24/21 Stop Date: 11/21/21 Status: Ordered ergocalciferol 32580 iu oral capsule See Instructions, TOME 1 CAPSULA POR VIA ORAL ONCE WEEKLY, # 4 capsule, Refills 4, Instructions Replace Required Details, Route to Pharmacy Electronically, [facility]ORE [address]61, 149.86, cm, 08/15/21 11:29:00 EST, Height, 85.7, kg, 07/24/21 14:26:00 ESTDr... Start Date: 09/24/21 Status: Ordered Escitalopram = 20 mg, By Mouth, Daily, 0 Refills, Maintenance, 05/13/19 15:46:32 EDT Start Date: 05/13/19 Status: Ordered Eucerin Plus topical lotion 1 application, Topically, 2 times a day, PRN for dry skin, # 600 mL, 1 Refills, Maintenance, 06/01/21 13:51:00 EDT, Lotion, [facility]/pharmacy #[id number], Partial fill upon patient request if [...] LAS COMID[place], # 15 Unknown, 5 Refills, [facility] STORE 13741, 149.86, cm, 08/15/21 11:29:00 EST, Height, 85.7, kg, 07/24/21 14:26:00 EST, Dry Weight Start Date: 11/13/21 Status: Ordered Imitrex 50 mg oral tablet See Instructions, 1 tablet By Mouth at onset of headache. May repeat once in 2 hours. Not > 4/ week., # 9 tablet, 0 Refills, Maintenance, 01/03/20 13:01:00 EDT, [facility]/pharmacy #[id number], 152, cm, 11/01/19 19:28:00 EDT, Height, [...] 09/26/22 12:17:00 EST, 10/01/21 12:17:00 EST, Solution, [facility]/pharmacy #[id number], 152, cm, 05/04/21 13:50:00 EDT, Height, 85.2, kg, 04/18/21 13:24:00 EDT, Dry... Start Date: 10/01/21 Stop Date: 09/26/22 Status: Ordered loratadine 10 mg oral tablet See Instructions, ASAD BURKETT TODOS [place] MIRANDA, # 30 tablet, Refills 5, Instructions Replace Required Details, Route to Pharmacy Electronically, [facility] STORE 27162, 149.86, cm, 08/15/21 11:29:00 EST,Height, 85.7, kg, 07/24/21 14:26:00 EST, Dry Weight Start Date: 09/27/21 Status: Ordered meclizine 25 mg oral tablet 1 tablet = 25 mg, By Mouth, 3 times a day, PRN for dizziness, # 30 tablet, 0 Refills, Maintenance, 04/08/21 22:48:00 EDT, Tablet, [facility]/pharmacy #[id number], Partial fill upon patient request if the prescription is for a schedule II opioid drug., 152, cm, ... Start Date: 04/08/21 Status: Ordered Sonos COVID-19 Vaccine 30 mcg/0.3 mL preservative-free intramuscular [...] Replace Required Details, Route to Pharmacy Electronically, [id number], [facility], 149.86, cm, 12... Start Date: 10/15/21 Status: [...] # 60 tablet, 4 Refills, Maintenance, [id number], 152, cm, 11/06/20 10:17:00 EDT, Height, 81, [...]
--- OUTSIDE RECORDS SUMMARY | 2023-07-21 13:06 | XMS_ITS | Continuity of Care Document ---
Author Name Unknown Organization [facility] ter Address [address] [place] [id number]- Care Team Providers Care Self Sealing Fuel Tank Repairer Name Role Phone Renato MORRISON, Milton Loyola Primary Care Physicia n Encounter [facility] ACCT R [id number] Date(s): 07/03/23 - 07/03/[address] [address]- Discharge Disposition: A-D/C Home Attending Physician: Susanna Huerta DO Admitting Physician: Susanna Huerta DO Referring Physician: Not on Staff, Referring MD Allergies, Adverse Reactions, Alerts Substance Reaction Severity Status traMADol tongue numbness--but she fell near loc Active Immunizations Given and Recorded Vaccine Date Status Refusal Reason [id number] bivalent booster vax 07/17/22 Given influenza virus vaccine, inactivated 07/17/22 Give n influenza virus vaccine, inactivated 06/01/20 Give n influenza virus vaccine, inactivated 05/13/17 Give n SARS-CoV-2 (COVID-19) mRNA BNT-162b2 vac 1 05/25/21 Given SARS-CoV-2 (COVID-19) mRNA BNT-162b2 vac 2 05/04/21 Given hepatitis B adult vaccine 01/18/16 Given pneumococcal 23-valent vaccine 01/18/16 Given tetanus/diphtheria/pertussis, acel(Tdap) 01/18/16 Given 1Result Comment: NS DIL LOT [id number] EXP 11/2022 2Result Comment: DILUENT LOT#: [id number] EXP: 11/14 MFG: FRESENSIUS Medications albuterol 0.083% [...] 5 mg, By Mouth, Daily, [facility] Follow speciality, # 30 tablet, 2 Refills, Maintenance, 03/06/23 16:52:00 EDT, Tablet, [facility]/pharmacy #[id number], Partial fill upon patient request if theprescription is for a schedule II opioid drug., 145... Start Date: 03/06/23 Stop Date: 06/04/23 Status: Ordered Aspirin Low Dose 81 mg oral delayed release tablet See Instructions, ASAD BASHIR TABLETA MARIANNE RODRÍGUEZ MIRANDA [facility] continue, # 30 tablet, 11 Refills, 07/04/22 11:40:00 EST, [facility]/pharmacy #[id number], 149.8, cm, 07/04/22 11:20:00 EST, Height, 83.3, kg, 06/14/22 18:50:00 EDT, Dry Weight Start Date: 07/04/22 Status: Ordered atorvastatin 10 mg oral tablet See Instructions, ASAD BASHIR TABLETA TOLOMAS [...] Instructions, # 150 each, Refills 11, Tot. [id number], Maintenance, Use for times a days with [...] Compound Start Date: 07/25/21 Status: Ordered ergocalciferol 59242 iu oral capsule 1, capsule, By Mouth, Every week, # 4 capsule, Refills 4, Maintenance, 10/22/22 15:42:00 EST[id number], 149.8, cm, 07/22/22 9:38:00 EST, Height, 83.3, kg, 06/14/22 18:50:00 EDT, Dry Weight Start Date: 10/22/22 Status: Ordered Escitalopram = 20 mg, By Mouth, Daily, 0 Refills, Maintenance, 05/13/19 15:46:32 EDT Start Date: 05/13/19 Status: Ordered Eucerin Plus topical lotion 1 application, Topically, 2 times a day, PRN for dry skin, # 600 mL, 11 Refills, Maintenance, 01/17/23 13:42:00 EDT, Lotion, [facility]/pharmacy #[id number], Partial fill upon patient request if the prescription is for a schedule II opioid drug., 1 application Top... Start Date: 01/17/23 Stop Date: 01/12/24 Status: Ordered Eucerin Plus topical lotion 1 application, Topically, 2 times a day, PRN for dry skin, # 600 mL, 1 Refills, Maintenance, 05/24/22 14:28:00 EDT, Lotion, [facility]/pharmacy #[id number], Partial fill upon patient request [...] Not > 4/ week., # 9 tablet, 1 Refills, Maintenance, 07/02/23 15:57:00 EST, [facility]/pharmacy #[id number], 145, cm, 06/03/23 15:58:00 EDT, Height, 81, kg, 01/05/23 21:32:00 EDT,... Start Date: 07/02/23 Status: Ordered Insulin Lispro Scot KwikPen 100 units/mL injectable solution = 15 units, Subcutaneous Infusion, 3 times a day before meals, for 30 days, with breakfast and lunch rotate injection sites. stop novolog due insurance issues. in djiboutian, # 15 mL, 11 Refills, Hard Stop 08/07/23 12:49:00 EST, 08/12/22 12:49:00 EST,... Start Date: 08/12/22 Stop Date: 08/07/23 Status: Ordered Insulin Lispro Scot KwikPen 100 units/mL injectable solution = 15 units, Subcutaneous Infusion, 3 times a day before meals, with breakfast and lunch rotate injection sites. stop novolog due insurance issues. in djiboutian, # 15 mL, 11 Refills, Maintenance, 08/07/23 12:49:00 EST, [facility]/pharmacy #[id number], Partial fill... Start Date: 08/07/23 [...] 09/10/25 12:17:00 EST, 09/15/24 12:17:00 EST, Solution, [facility]/pharmacy #[id number], 149.8, cm, 07/22/22 9:38:00 EST, Height, 83.3, kg, 06/14/22 18:50:00 EDT, . Start Date: 09/15/24 Stop Date: 09/10/25 Status: Ordered loratadine 10 mg oral tablet See Instructions, ASAD BURKETT TODOS LOS MIRANDA, # 30 tablet, Refills 5, Tot. Refills 5, 05/24/2214:42:00 EDT, Instructions Replace Required Details, Route to Pharmacy Electronically, [facility]/pharmacy#[id number], 149.86, cm, 05/24/22 13:53:00 EDT, Height, 8... Start Date: 05/24/22 Status: Ordered meclizine 25 mg oral tablet 1 tablet = 25 mg, By Mouth, 3 times a day, PRN for dizziness, # 30 tablet, 0 Refills, Maintenance, 05/31/22 13:26:00 EDT, Tablet, [facility]/pharmacy #[id number], Partial fill upon patient request if the prescription is for a schedule II opioid drug., 149.86, cm,... Start Date: 05/31/22 Status: Ordered Metoprolol Tartrate 25 mg oral tablet 1 tablet, By Mouth, 2 times a day, # 180 tablet, 0 Refills, Maintenance, 04/07/23 14:20:00 EDT, [id number], 145, cm, 01/29/23 8:36:00 EDT, Height, 81, [...] Replace Required Details, Route to Pharmacy Electronically, [id number]... Start Date: 01/17/23 Status: Ordered Pulse Oximeter Pulse Oximeter, See Instructions, # 1 each, Refills 0, Tot. Refills 0, Maintenance, For COVID Diagnosis (U07.1), 07/17/22 12:09:00 EST, Supply, 149.8, cm, 07/17/22 10:22:00 EST, Height, 83.3, kg, 06/14/22 18:50:00 EDT, Dry Weight Start Date: 07/17/22 Status: Ordered Vitamin B2 100 mg oral tablet See Instructions, ASAD SHAWA ANTHONY VECES AL JULIAN, # 60 tablet, 4 Refills, 07/02/23 15:57:00 EST,[id number], 145, cm, 06/03/23 15:58:00 EDT, Height, 81, kg, 01/05/23 21:32:00 EDT, Dry Weight Start Date: 07/02/23 Status: Ordered Zithromax 250 mg oral tablet 1 pack/packet, By Mouth, Once, # 6 tablet, 0 Refills, Soft Stop, 01/05/23 23:08:00 EDT, Tablet, [facility]/pharmacy #[id number], Partial fill upon patient request [...] obesity (BMI 35.0-39.9) with comorbidity Confirmed Active Results Radiology Reports * Exam Date Time Procedure Performing Provider Status 07/03/23 4:[address] Head/Brain W/O Contrast Elton Hernandez russ; Auth (Verified) Notes: (CT Head/Brain W/O Contrast) Reason For Exam: Trauma RESULT: CT Head/Brain W/O Contrast CT Head/Brain W/O Contrast INDICATION: Hx of Present Illness: Patient presents with head pain and right sided facial swelling x 4 days. TECHNIQUE: Incremental CT without contrast through the head was formatted in axial and coronal plane. Weight-based protocol using automatic tube modulation was performed to optimize scan parameters. CTDIvol Head: 45.40 mGy, DLP Head: 773 mGy*cm. COMPARISON: 2021. FINDINGS: BRAIN and EXTRA-AXIAL SPACES: No parenchymal hemorrhage, midline shift or mass effect. Gómez-white matter differentiation is well preserved. No acute infarct. Previously suspected subcentimeter radiodensity along the inner table the right frontal convexity appears unchanged previously described as a meningioma by report. There is some physiologic calcification along the falx. Partially empty sella turcica similar to previous. Ventricles, sulci and basilar cisterns are otherwise age appropriate. No subarachnoid hemorrhage, subdural or epidural collections. CALVARIUM, SKULL BASE AND SOFT TISSUES: No fractures or suspicious bony lesions. The paranasal sinuses and mastoid air cells are clear. Visualized orbits and globes are intact. The extracranial soft tissues are unremarkable. IMPRESSION: No acute process. WSN: [id number] Ordering Physician: Susanna Huerta Dictated By: Radhames Soto MD Dictated Date/Time: 07/03/23 5:00 pm Reviewed By: Radhames Soto MD Signed By: Radhames Soto MD Signed Date/Time: 07/03/23 5:00 pm Transcribed By: KASSIE Transcribed Date/Time: 07/03/23 4:55 pm * Exam Date Time Procedure Performing Provider Status 07/03/23 4:[address] Head Venogram Nicole Hernandez; Auth (Verified) Notes: (CT Head Venogram) Reason For Exam: Headache(s) RESULT: CT Head Venogram CT Head Venogram Hx of Present Illness: Patient presents with head pain and right sided facial swelling x 4 days.; Reason: Headache(s); Clinical Question(s): Venous Sinus Thrombosis; Order Comment: / Venous Sinus Thrombosis TECHNIQUE: After administration of intravenous contrast, CT venogram of the head was performed. 100mL of Omnipaque 300 was administered intravenously. 3D and MIP reconstruction images were reformatted and used in the interpretation. Iterative reconstruction techniques are used to optimize dose andimage quality. COMPARISONS: Noncontrast CT head 07/03/2023. FINDINGS: The superior sagittal sinus and bilateral transverse sinuses, sigmoid sinuses, and jugular bulbs are patent and normal in caliber. The left transverse and sigmoid sinuses are mildly dominant. The internal cerebral veins, basal veins of Dangelo, vein of [place], and straight sinus are patent. Cavernous sinuses demonstrate symmetric contour and enhancement. No filling defect or occlusion in the visualized major cortical veins. Visualized intracranial arteries: Visualized intracranial ICAs and proximal ANASTASIA and MCA branches are patent. The intracranial vertebral arteries, basilar artery, and proximal SCA and DOOR PULLER branches arepatent. Other findings: Visualized intracranial structures are unremarkable. Extracranial soft tissues and bones are unremarkable. IMPRESSION: Normal CT venogram of head. No evidence of dural venous sinus thrombosis. WSN: [id number] Ordering Physician: Susanna Huerta Dictated By: eMgha Rivera MD Dictated Date/Time: 07/03/23 5:35 pm Reviewed By: Megha Rivera MD Signed By: Megha Rivera MD Signed Date/Time: 07/03/23 5:35 pm Transcribed By: KASSIE Transcribed Date/Time: 07/03/23 4:51 pm Vital Signs Most recent to oldest [Reference Range]: 1 2 Height 150 cm (07/03/23 2:25 PM) 150 cm (07/03/23 11: AM) Oxygen Saturation [94-100 %] 97 % (07/03/23 11:19 AM) Pulse Rate [55-90 bpm] 87 bpm (07/03/23 11:19 AM) Blood Pressure [90-138/55-84 mm Hg] 150/ 88mm Hg *H* (07/03/23 11:19 AM) Respiratory Rate [16-30 br/min] 18 br/mi n (07/03/23 11:19 AM) Temperature [96.8-100.4 DegF] 98.7 DegF (07/03/23 11:19 AM) Mode of Delivery (Oxygen) Room air (07/03/23 11:19 AM) Temperature Route Oral (07/03/23 11:19 AM) Dry Weight 81 kg (07/03/23 2:25 PM) 81 kg (07/03/23 11:19 AM) Dry Weight Obtained Via Patient/family s tated (07/03/23 11:19 AM) Social History Social History Type Response Smoking Status Never (less than 100 in lifetime) entered on: 01/29/23 Sex Female Note * Kenia Rod NP: PERFORM, SIGN, VERIFY Event Display: Patient Education Handout Authored Date: [id number] Patient Care team information Care Team Personnel Name: Jesika Hua RN Position: [facility] RN Member Role: Primary Care Nurse Name: Milton Gross NP Position: [facility] PCO Associate Professional Member Role: PCP Address: Address: [address] [place] [address]- Name: Susanna Huerta DO Position: [facility] Resident Member Role: Admitting Physician Address: Address: [address] [place] [address]- Name: Kenia Rod NP Position: [facility] Associate Professional Member Role: Nurse Practitioner Address: Address: [address] [place] [id number]- Name: Sai Wilks RN Position: [facility] ED RN W/OE and Tasks Member Role: Patient Care Provider Name: Latisha Kirkland Position: [facility] ED TA [facility] Care Team Related Persons Name: YASMIN FISHER Address: home [address] [address]
--- OUTSIDE RECORDS SUMMARY | 2023-07-21 13:06 | XMS_ITS | Continuity of Care Document ---
Author Name Unknown Organization [facility] ter Address [address] [place] [id number]- Care Team Providers Care Rail Car Mechanic Name Role Phone Renato MORRISON, Milton Loyola Primary Care Physicia n Encounter [facility] Date(s): 08/01/21 - 09/19/[address] [address] Attending Physician: Akhil Eastman MD Admitting Physician: [...] Patient Refuses 1Result Comment: NS DIL LOT [id number] EXP 11/2022 2Result Comment: DILUENT LOT#: [id number] EXP: 11/14 MFG: FRESENSIUS Medications albuterol 0.083% [...] 12:25:00 EST, Aerosol, Route to Pharmacy Electronically, [id number], [facility]/pharmacy #[id number], 152, cm, 06/01/20 [...] 10/06/20 12:25:00 EST, Route to Pharmacy Electronically, [facility]/pharmacy #[id number], 152, cm, 06/01/20 9:54:00 EDT, Height, 81, kg, 11/01/19 19:28:00 EDT, Dry Weight Start Date: 10/06/20 Status: Ordered atorvastatin 10 mg oral tablet 1 tablet = 10 mg, By Mouth, Daily, # 30 tablet, 5 Refills, Maintenance, 05/05/21 11:03:00 EDT, [facility]/pharmacy #[id number], Partial fill upon patient request if the prescription is for a schedule II opioid drug., 152, cm, 04/18/21 13:24:00 EDT, Height, 85.2, k... Start Date: 05/05/21 Stop Date: 11/01/21 Status: Ordered BD Ultra-Fine pen needles, BERTRAM 4 mm x 32 G BD Ultra-Fine pen needles, BERTRAM 4 mm x 32 G, See Instructions, # 150 each, Refills 11, Tot. [id number], Maintenance, Use for times a days with [...] Mouth, 2 times a day, with food Kyrgyz label, # 60 tablet, 3 Refills, Maintenance, 07/24/21 15:01:00 EST, [facility]/pharmacy #[id number], Partial fill upon patient request if the prescription is for a schedule II opioid drug., 152, cm, 06/27... Start Date: 07/24/21 Stop Date: 11/21/21 Status: Ordered ergocalciferol 42601 iu oral capsule 50,000 International_Units, 1, capsule, By Mouth, Every week, # 18 capsule, Refills 0, Tot. Refills0, Maintenance, 06/01/21 13:45:00 EDT, Route to Pharmacy Electronically, [facility]/pharmacy #[id number], Partial fill upon [...] 1 Refills, Maintenance, 06/01/21 13:51:00 EDT, Lotion, [facility]/pharmacy #[id number], Partial fill upon [...] 11 Refills, Maintenance, 05/04/21 14:14:00 EDT, Solution, [facility]/pharmacy #[id number], Partial fill upon patient request if the prescription is for a schedule II opio... Start Date: 05/04/21 Status: Ordered Imitrex 50 mg oral tablet See Instructions, 1 tablet By Mouth at onset of headache. May repeat once in 2 hours. Not > 4/ week., # 9 tablet, 0 Refills, Maintenance, 01/03/20 13:01:00 EDT, [facility]/pharmacy #[id number], 152, cm, 11/01/19 [...] 09/26/22 12:17:00 EST, 10/01/21 12:17:00 EST, Solution, [facility]/pharmacy #[id number], 152, cm, 05/04/21 13:50:00 EDT, Height, 85.2, kg, 04/18/21 13:24:00 EDT, Dry... Start Date: 10/01/21 Stop Date: 09/26/22 Status: Ordered loratadine 10 mg oral tablet See Instructions, ASAD BURKETT TODOS LOS MIRANDA, # 30 tablet, Refills 5, Maintenance, Instructions Replace Required Details, Route to Pharmacy Electronically, [id number], 152, cm, 11/06/20 10:17:00 EDT, Height, 81, kg, 11/01/19 19:28:00 EDT, DrBonilla.. Start Date: 04/03/21 Status: Ordered meclizine 25 mg oral tablet 1 tablet = 25 mg, By Mouth, 3 times a day, PRN for dizziness, # 30 tablet, 0 Refills, Maintenance, 04/08/21 22:48:00 EDT, Tablet, [facility]/pharmacy #[id number], Partial fill upon [...] 10/26/20 16:17:00 EST, Route to Pharmacy Electronically, [facility]/pharmacy #[id number], 152, cm, 06/01... Start Date: 10/26/20 Stop Date: 10/21/21 Status: Ordered coComment COVID-19 Vaccine 30 mcg/0.3 mL preservative-free intramuscular [...] JULIAN, # 60 tablet, 4 Refills, Maintenance, [facility] [id number], 152, cm, 11/06/20 10:17:00 EDT, Height, 81, kg, 11/01/19 19:28:00 EDT, Dry Weight Start Date: 03/07/21 Status: Ordered Problem List Condition Effective Dates Status Health Status Inform ant Annual physical exam(Confirmed) Active Asthma(Confirmed) Active Depression(Confirmed) Active Diabetes mellitus(Confirmed) Active Hypertension(Confirmed) Active Lactic acidosis(Confirmed) Active Meningioma(Confirmed) Active Myalgia(Confirmed) Active Obese class II(Confirmed) Active Obstructive sleep apnea(Confirmed) Active Vital Signs Most recent to oldest [Reference Range]: 1 Height 149.86 cm (08/15/21 11:29 AM) Social History Social History Type Response Smoking Status Never smoker; Tobacc o user in household: No; Type: Cigarettes entered on: 11/07/14 Sex
--- OUTSIDE RECORDS SUMMARY | 2023-07-21 13:06 | XMS_ITS | Continuity of Care Document ---
Author Name Unknown Organization [facility] Address [address] [place] [address]- Care Team Providers Care Office Worker Name Role Phone Renato MORRISON, Milton Loyola Primary Care Physicia n Encounter [facility] ACCT [facility] [id number] Date(s): 12/22/20 - 01/21/[address] [address]- Attending Physician: Jimenez Grant Admitting Physician: AdmJimenez [...] Refills, Maintenance, 10/06/20 12:25:00 EST, Solution, [id number], 152, cm, 06/01/20 9:54:00 EDT, Height, 81, kg, 11/01/19 19:28:00 EDT, Dry Weight Start Date: 10/06/20 Status: Ordered albuterol CFC free 90 mcg/inh inhalation aerosol 2, puffs, Inhalation, Every 4 hours, PRN, # 18 Gm, Refills 11, Tot. Refills 11, Maintenance, 10/06/20 12:25:00 EST, Aerosol, Route to Pharmacy Electronically, [id number], [facility]/pharmacy #[id number], 152, cm, 06/01/20 9:54:00 EDT, Hei... [...] 10/06/20 12:25:00 EST, Route to Pharmacy Electronically, [facility]/pharmacy #[id number], 152, cm, 06/01/20 9:54:00 EDT, Height, 81, kg, 11/01/19 19:28:00 EDT, Dry Weight Start Date: 10/06/20 Status: Ordered atorvastatin 10 mg oral tablet 1 tablet = 10 mg, By Mouth, Daily, # 30 tablet, 5 Refills, Maintenance, 11/06/20 11:03:00 EDT, [facility]/pharmacy #[id number], Partial fill upon patient [...] Instructions, # 150 each, Refills 11, Tot. [id number], Maintenance, Use for times a days with insulin. DM E119, 10/06/20 12:18:00 EST, Compound, 152, cm, 06/01/20 9:54:00 EDT, Height, 81, kg, 11/01/19 1... Start Date: 10/06/20 Status: Ordered BENGAY Arthritis topical cream See Instructions, rub into areas of pain and muscle tightness; instructions in Sinhala, # 1 each, 2Refills, Maintenance, 12/14/20 11:39:00 EDT, [facility]/pharmacy #[id number], Partial fill upon patient [...] 11/28/20 10:24:00 EDT, Route to Pharmacy Electronically, [facility]/pharmacy #[id number], 152, cm, 06/01/20 9:54:00 EDT, Height, [...] 11 Refills, Maintenance, 10/06/20 12:22:00 EST, Lotion, [facility]/pharmacy #[id number], 1 application Topically 2 times a [...] mL, 11 Refills, Maintenance, 10/06/20 12:20:00 EST, [facility]/pharmacy #[id number], 152, cm, 06/01/20 9:54:00 EDT, Height, [...] 10/01/21 12:17:00 EST, 10/06/20 12:17:00 EST, Solution, [facility]/pharmacy #[id number], 152, cm, 06/01/20 9:54:00 EDT, Height, 81, kg, 11/01/19 19:28:00 EDT, Dry We... Start Date: 10/06/20 Stop Date: 10/01/21 Status: Ordered loratadine 10 mg oral tablet 10 mg, 1, tablet, By Mouth, Daily, # 30 tablet, Refills 5, Tot. Refills 5, Maintenance, 02/20/21 9:48:00 EDT, Route to Pharmacy Electronically, [facility]/pharmacy #[id number], 152, cm, 06/01/20 9:54:00 EDT, Height, [...] NECESARIO DIZZINESS, #50 tablet, 1 Refills, Acute, [facility], 152, cm, 11/06/20 10:17:00 EDT, Height, 81, kg, 11/01/19 19:28:00 EDT, Dry Weight Start Date: 12/07/20 Status: Ordered metoprolol 25 mg oral tablet 25 mg, 1, tablet, By Mouth, 2 times a day, for 90 days, This is an increase in dose., # 180 tablet,Refills 3, Tot. Refills 3, Hard Stop 10/21/21 16:17:00 EST, 10/26/20 16:17:00 EST, Route to Pharmacy Electronically, [facility]/pharmacy #[id number], 152, cm, 06/01... Start Date: 10/26/20 Stop Date: 10/21/21 Status: Ordered riboflavin 100 mg oral tablet 1 tablet = 100 mg, By Mouth, 2 times a day, # 60 tablet, 4 Refills, Maintenance, 10/06/20 12:25:00 EST, [facility]/pharmacy #[id number], 152, cm, 06/01/20 9:54:00 EDT, Height, 81, kg, 11/01/19 19:28:00 EDT, Dry Weight Start Date: 10/06/20 Stop Date: 03/05/21 Status: Ordered sulindac 200 mg oral tablet 1 tablet = 200 mg, By Mouth, 2 times a day, # 60 tablet, 2 Refills, Maintenance, 12/14/20 11:44:00 EDT, Tablet, [facility]/pharmacy #[id number], Partial fill upon patient request if the prescription is for a schedule II opioid drug., 152, cm, 11/06/20 10:17:00 EDT... Start Date: 12/14/20 Status: Ordered Vitamin D3 1000 intl units oral tablet 1 tablet = 1,000 International_Units, By Mouth, Daily, # 30 tablet, 11 Refills, Maintenance, 10/06/20 12:25:00 EST, Tablet, [facility]/pharmacy #[id number], 152, cm, 06/01/20 9:54:00 EDT, Height, [...]
--- OUTSIDE RECORDS SUMMARY | 2023-07-21 13:06 | XMS_ITS | Continuity of Care Document ---
Author Name Unknown Organization [facility] Address [address] [place] [address]- Care Team Providers Care Black Studies Professor Name Role Phone Milton Gross NP Primary Care Physicia n Encounter [facility] [place]CT R [id number] Date(s): 11/22/20 - 12/22/20 [facility] [address] [place] [address]- Attending Physician: Jimenez Grant Admitting Physician: Jimenez [...] 12/22/20 13:56:00 EDT, Route to Pharmacy Electronically, [facility]/pharmacy #[id number], Partial fill upon patient request if... Start Date: 12/22/20 Stop Date: 01/06/21 Status: Ordered albuterol 0.083% inhalation solution 3 mL = 2.5 mg, Inhalation, Every 6 hours, PRN for wheezing, # 25 each, 11 Refills, Maintenance, 02/12/21 12:25:00 EST, Solution, [facility]/pharmacy #[id number], 152, cm, 06/01/20 9:54:00 EDT, Height, 81, kg, 11/01/19 19:28:00 EDT, Dry Weight Start Date: 10/06/20 Status: Ordered albuterol CFC free 90 mcg/inh inhalation aerosol 2, puffs, Inhalation, Every 4 hours, PRN, # 18 Gm, Refills 11, Tot. Refills 11, Maintenance, 10/06/20 12:25:00 EST, Aerosol, Route to Pharmacy Electronically, [id number], [facility]/pharmacy #[id number], 152, cm, 06/01/20 9:54:00 [...] tablet, 5 Refills, Maintenance, 11/06/20 11:03:00 EDT, [facility]/pharmacy #[id number], Partial fill [...] 0 Refills, Maintenance, 12/14/20 11:40:00 EDT, Tablet, [facility]/pharmacy #[id number], Partial fill upon patient request if the prescription is for a schedule II opioid drug., 152, cm,... Start Date: 12/14/20 Stop Date: 12/28/20 Status: Ordered BD Ultra-Fine pen needles, BERTRAM 4 mm x 32 G BD Ultra-Fine pen needles, BERTRAM 4 mm x 32 G, See Instructions, # 150 each, Refills 11, Tot. [id number], Maintenance, Use for times a days with insulin. DM E119, 10/06/20 12:18:00 EST, Compound, 152, cm, 06/01/20 9:54:00 EDT, Height, 81, kg, 11/01/19 1... Start Date: 10/06/20 Status: Ordered BENGAY Arthritis topical cream See Instructions, rub into areas of pain and muscle tightness; instructions in Setswana, # 1 each, 2Refills, Maintenance, 12/14/20 11:39:00 EDT, [facility]/pharmacy #[id number], Partial fill upon [...] 11/28/20 10:24:00 EDT, Route to Pharmacy Electronically, [facility]/pharmacy [...] 10/01/21 12:17:00 EST, 10/06/20 12:17:00 EST, Solution, [facility]/pharmacy #[id number], 152, cm, 06/01/20 9:54:00 EDT, Height, 81, kg, 11/01/19 19:28:00 EDT, Dry We... Start Date: 10/06/20 Stop Date: 10/01/21 Status: Ordered loratadine 10 mg oral tablet 10 mg, 1, tablet, By Mouth, Daily, # 30 tablet, Refills 5, Tot. Refills 5, Maintenance, 02/20/21 9:48:00 EDT, Route to Pharmacy Electronically, [facility]/pharmacy [...] NECESARIO DIZZINESS, #50 tablet, 1 Refills, Acute, [facility] STORE 06706, 152, cm, 11/06/20 10:17:00 EDT, Height, 81, kg, 11/01/19 19:28:00 EDT, Dry Weight Start Date: 12/07/20 Status: Ordered metoprolol 25 mg oral tablet 25 mg, 1, tablet, By Mouth, 2 times a day, for 90 days, This is an increase in dose., # 180 tablet,Refills 3, Tot. Refills 3, Hard Stop 10/21/21 16:17:00 EST, 10/26/20 16:17:00 EST, [id number] 152, cm, 06/01... Start Date: 10/26/20 Stop Date: 10/21/21 Status: Ordered riboflavin 100 mg oral tablet 1 tablet = 100 mg, By Mouth, 2 times a day, # 60 tablet, 4 Refills, Maintenance, 10/06/20 12:25:00 EST, [id number], 152, cm, 06/01/20 9:54:00 EDT, Height, 81, kg, 11/01/19 19:28:00 EDT, Dry Weight Start Date: 10/06/20 Stop Date: 03/05/21 Status: Ordered sulindac 200 mg oral tablet 1 tablet = 200 mg, By Mouth, 2 times a day, # 60 tablet, 2 Refills, Maintenance, 12/14/20 11:44:00 EDT, Tablet, [id number], Partial fill upon patient request if the prescription is for a schedule II opioid drug., 152, cm, 11/06/20 10:17:00 EDT... Start Date: 12/14/20 Status: Ordered Vitamin D3 1000 intl units oral tablet 1 tablet = 1,000 International_Units, By Mouth, Daily, # 30 tablet, 11 Refills, Maintenance, 10/06/20 12:25:00 EST, Tablet, [facility]/pharmacy #[id number], 152, cm, 06/01/20 9:54:00 [...]
--- OUTSIDE RECORDS SUMMARY | 2023-07-21 13:06 | XMS_ITS | Continuity of Care Document ---
Author Name Unknown Organization [facility] Address [address] [place] [address]- Care Team Providers Care Youth Care Professional Name Role Phone Milton Gross NP Primary Care Physicia n Encounter [facility] [place] ACCT R [id number] Date(s): 06/01/21 - 07/01/[address] [address]- Attending Physician: Jimenez Grant Admitting Physician: Jimenez Grant Referring Physician: trJimenez Allergies, Adverse Reactions, Alerts Substance [...] Patient Refuses 1Result Comment: NS DIL LOT [id number] EXP 11/2022 2Result Comment: DILUENT LOT#: [id number] EXP: 11/14 MFG: FRESENSIUS Medications albuterol 0.083% inhalation solution 3 mL = 2.5 mg, Inhalation, Every 6 hours, PRN for wheezing, # 25 each, 11 Refills, Maintenance, 10/06/20 12:25:00 EST, Solution, [facility]/pharmacy #[id number], 152, cm, 06/01/20 9:54:00 EDT, Height, 81, kg, 11/01/19 19:28:00 EDT, Dry Weight Start Date: 10/06/20 Status: Ordered albuterol CFC free 90 mcg/inh inhalation aerosol 2, puffs, Inhalation, Every 4 hours, PRN, # 18 Gm, Refills 11, Tot. Refills 11, Maintenance, 10/06/20 12:25:00 EST, Aerosol, Route to Pharmacy Electronically, [id number], [facility]/pharmacy #[id number], 152, cm, 06/01/20 9:54:00 EDT, Hei... [...] 10/06/20 12:25:00 EST, Route to Pharmacy Electronically, [facility]/pharmacy #[id number], 152, cm, 06/01/20 9:54:00 EDT, Height, 81, kg, 11/01/19 19:28:00 EDT, Dry Weight Start Date: 10/06/20 Status: Ordered atorvastatin 10 mg oral tablet 1 tablet = 10 mg, By Mouth, Daily, # 30 tablet, 5 Refills, Maintenance, 05/05/21 11:03:00 EDT, [facility]/pharmacy #[id number], Partial fill upon patient request if the prescription is for a schedule II opioid drug., 152, cm, 04/18/21 13:24:00 EDT, Height, 85.2, k... Start Date: 05/05/21 Stop Date: 3/10/22 Status: Ordered baclofen 5 mg oral tablet 1 tablet = 5 mg, By Mouth, 3 times a day, may cause drowsiness., # 42 tablet, 0 Refills, Maintenance, 12/14/20 11:40:00 EDT, Tablet, [facility]/pharmacy #[id number], Partial fill upon patient request if the prescription is for a schedule II opioid drug., 152, cm,... Start Date: 12/14/20 Stop Date: 12/28/20 Status: Ordered BD Ultra-Fine pen needles, BERTRAM 4 mm x 32 G BD Ultra-Fine pen needles, BERTRAM 4 mm x 32 G, See Instructions, # 150 each, Refills 11, Tot. [id number], Maintenance, Use for times a days with insulin. DM E119, 10/06/20 12:18:00 EST, Compound, 152, cm, 06/01/20 9:54:00 EDT, Height, 81, kg, 11/01/19 1... Start Date: 10/06/20 Status: Ordered BENGAY Arthritis topical cream See Instructions, rub into areas of pain and muscle tightness; instructions in Polish, # 1 each, 2Refills, Maintenance, 12/14/20 11:39:00 EDT, [facility]/pharmacy #[id number], Partial fill upon patient request if [...] 11/28/20 10:24:00 EDT, Route to Pharmacy Electronically, [facility]/pharmacy #[id number], 152, cm, 06/01/20 9:54:00 EDT, Height, [...] Compound Start Date: 04/18/21 Status: Ordered ergocalciferol 10607 iu oral capsule 50,000 International_Units, 1, capsule, By Mouth, Every week, # 18 capsule, Refills 0, Tot. Refills0, Maintenance, 06/01/21 13:45:00 EDT, Route to Pharmacy Electronically, [facility]/pharmacy #[id number], Partial fill upon patient request if the prescription is f... Start Date: 06/01/21 Stop Date: 09/29/21 Status: Ordered Escitalopram By Mouth, Daily, 0 Refills, Maintenance, 05/13/19 15:46:32 EDT Start Date: 05/13/19 Status: Ordered Eucerin Plus topical lotion 1 application, Topically, 2 times a day, PRN for dry skin, # 600 mL, 11 Refills, Maintenance, 10/06/20 12:22:00 EST, Lotion, [facility]/pharmacy #[id number], 1 application Topically 2 times a day,PRN:for dry skin, 152, cm, 06/01/20 9:54:00 EDT, Height, 81, kg, 03/... Start Date: 10/06/20 Status: Ordered Eucerin Plus topical lotion 1 application, Topically, 2 times a day, PRN for dry skin, # 600 mL, 1 Refills, Maintenance, 06/01/21 13:51:00 EDT, Lotion, [facility]/pharmacy #[id number], Partial fill upon patient request if [...] 06/01/21 13:48:00 EDT, Route to Pharmacy Electronically, [facility]/pharmacy #[id number], Partial fill upon patient request if the prescription is for a schedule II... Start Date: 06/01/21 Stop Date: 07/31/21 Status: Ordered Humalog 100 u/ml subcutaneous injection = 15 units, Subcutaneous Injection, 3 times a day before meals, discontinue admelog, # 15 mL, 11 Refills, Maintenance, 05/04/21 14:14:00 EDT, Solution, [facility]/pharmacy #[id number], Partial fill upon patient request if the prescription is for a schedule II opio... Start Date: 05/04/21 Status: Ordered HumaLOG KwikPen 100 units/mL injectable solution = 15 units, Subcutaneous Infusion, 3 times a day before meals, Dx E11.9. D/C admelog same dose 15 units . give kwik pen, # 15 mL, 11 Refills, Maintenance, 10/06/20 12:20:00 EST, [facility]/pharmacy #[id number], 152, cm, 06/01/20 9:54:00 EDT, Height, 81, kg, ... Start Date: 10/06/20 Stop Date: 10/01/21 Status: Ordered Imitrex 50 mg oral tablet See Instructions, 1 tablet By Mouth at onset of headache. May repeat once in 2 hours. Not > 4/ week., # 9 tablet, 0 Refills, Maintenance, 01/03/20 13:01:00 EDT, [facility]/pharmacy #[id number], 152, cm, 11/01/19 19:28:00 EDT, Height, [...] 09/26/22 12:17:00 EST, 10/01/21 12:17:00 EST, Solution, [facility]/pharmacy #[id number], 152, cm, 05/04/21 13:50:00 EDT, Height, 85.2, kg, 04/18/21 13:24:00 EDT, Dry... Start Date: 10/01/21 Stop Date: 09/26/22 Status: Ordered loratadine 10 mg oral tablet See Instructions, ASAD LOPES LOS MIRANDA, # 30 tablet, Refills 5, Maintenance, Instructions Replace Required Details, Route to Pharmacy Electronically, [facility] STORE 38440, 152, cm, 11/06/20 10:17:00 EDT, Height, 81, kg, 11/01/19 19:28:00 EDT, . Start Date: 04/03/21 Status: Ordered meclizine 25 mg oral tablet See Instructions, TOME KRYSTEN TABLETA POR VIA ORAL GIBRAN VECES AL JULIAN CUANDO SEA NECESARIO DIZZINESS, #50 tablet, 1 Refills, Acute, [facility] ST[facility] 64196, 152, cm, 11/06/20 10:17:00 EDT, Height, 81, kg, 11/01/19 19:28:00 EDT, Dry Weight Start Date: 12/07/20 Status: Ordered meclizine 25 mg oral tablet 1 tablet = 25 mg, By Mouth, 3 times a day, PRN for dizziness, # 30 tablet, 0 Refills, Maintenance, 04/08/21 22:48:00 EDT, Tablet, [facility]/pharmacy #[id number], Partial fill upon patient request if [...] 10/26/20 16:17:00 EST, Route to Pharmacy Electronically, [facility]/pharmacy #[id number], 152, cm, 06/01... Start Date: 10/26/20 Stop Date: 10/21/21 Status: Ordered [email or web address] COVID-19 Vaccine 30 mcg/0.3 mL preservative-free intramuscular [...] 2 Refills, Maintenance, 12/14/20 11:44:00 EDT, Tablet, [facility]/pharmacy #[id number], Partial fill upon patient request if the prescription is for a schedule II opioid drug., 152, cm, 11/06/20 10:17:00 EDT... Start Date: 12/14/20 Status: Ordered Vitamin B2 100 mg oral tablet See Instructions, ASAD SHAWA DOS VECES AL JULIAN, # 60 tablet, 4 Refills, Maintenance, [facility] [id number], 152, cm, 11/06/20 10:17:00 EDT, Height, 81, [...]
--- OUTSIDE RECORDS SUMMARY | 2023-07-21 13:06 | XMS_ITS | Continuity of Care Document ---
Author Name Unknown Organization [facility] Address [address] [place] [address]- Care Team Providers Care Computer Artist Name Role Phone Milton Gross NP Primary Care Physicia n Encounter [facility] [place] Date(s): 11/07/21 - 01/24/22 [facility] [address] [place] [address]- Attending Physician: Akhil Eastman MD Admitting Physician: [...] Patient Refuses 1Result Comment: NS DIL LOT [id number] EXP 11/2022 2Result Comment: DILUENT LOT#: [id number] EXP: 11/14 MFG: FRESENSIUS Medications albuterol 0.083% [...] release tablet See Instructions, ASAD BASHIR TABLETA TOAdBm TechnologiesKal RODRÍGUEZ MIRANDA, # 30 tablet, 11 Refills, [facility] STORE 74901, 149.86, cm, 08/15/21 11:29:00 EST, Height, 85.7, kg, 07/24/21 14:26:00 EST, Dry Weight Start Date: 10/16/21 Status: Ordered atorvastatin 10 mg oral tablet See Instructions, ASAD BASHIR TABLETA TOVoölks MIRANDA, # 30 tablet, 5 Refills, [facility] 47428, 149.86,cm, 08/15/21 11:29:00 EST, Height, 85.7, kg, 07/24/21 14:26:00 EST, Dry Weight Start Date: 10/29/21 Status: Ordered BD Ultra-Fine pen needles, BERTRAM 4 mm x 32 G BD Ultra-Fine pen needles, BERTRAM 4 mm x 32 G, See Instructions, # 150 each, Refills 11, Tot. [id number], Maintenance, Use for times a days with [...] tablet, Refills 1, Route to Pharmacy Electronically, [facility] 86427, 149.86, cm, 08/15/21 11:29:00 EST, Height, 85.7, [...] Mouth, 2 times a day, with food Khmer label, # 60 tablet, 3 Refills, Maintenance, 07/24/21 15:01:00 EST, [facility]/pharmacy #[id number], Partial fill upon patient request if the prescription is for a schedule II opioid drug., 152, cm, 06/27... Start Date: 07/24/21 Stop Date: 11/21/21 Status: Ordered ergocalciferol 33652 iu oral capsule See Instructions, TOME 1 CAPSULA POR VIA ORAL ONCE WEEKLY, # 4 capsule, Refills 4, Instructions Replace Required Details, Route to Pharmacy Electronically, [facility]ORE 79767, 149.86, cm, 08/15/21 11:29:00 EST, Height, 85.7, kg, 07/24/21 14:26:00 EST, Start Date: 09/24/21 Status: Ordered Escitalopram = 20 mg, By Mouth, Daily, 0 Refills, Maintenance, 05/13/19 15:46:32 EDT Start Date: 05/13/19 Status: Ordered Eucerin Plus topical lotion 1 application, Topically, 2 times a day, PRN for dry skin, # 600 mL, 1 Refills, Maintenance, 06/01/21 13:51:00 EDT, Lotion, [facility]/pharmacy #8784, Partial fill upon patient request if the [...] # 15 Unknown, 5 Refills, [facility], 149.86, cm, 08/15/21 11:29:00 EST, Height, 85.7, [...] Details, Route to Pharmacy Electronically, [facility], 149.86, cm, 08/15/21 11:29:00 EST,Height, 85.7, kg, [...] cm, 03/... Start Date: 04/08/21 Status: Ordered Disruptor Beam COVID-19 Vaccine 30 mcg/0.3 mL preservative-free intramuscular [...] Replace Required Details, Route to Pharmacy Electronically, [id number], [facility] STORE 56117, 149.86, cm, 12... Start Date: 10/15/21 Status: [...] 4 Refills, Maintenance, [facility] [id number], 152, cm, 11/06/20 10:17:00 EDT, Height, 81, [...]
--- OUTSIDE RECORDS SUMMARY | 2023-07-21 13:06 | XMS_ITS | Continuity of Care Document ---
Author Name Unknown Organization [facility] Address [address] [place] [address]- Care Team Providers Care Emergency Telecommunications Dispatcher Name Role Phone Renato MORRISON, Milton Loyola Primary Care Physicia n [place] [facility] [place] 01/04/[address] [address]- Attending Physician: Dorinda Brar CNM Admitting Physician: Dorinda Brar CNM Allergies, Adverse Reactions, Alerts Substance Reaction Severity [...] Patient Refuses 1Result Comment: NS DIL LOT [id number] EXP 11/2022 2Result Comment: DILUENT LOT#: [id number] EXP: 11/14 MFG: FRESENSIUS Medications albuterol 0.083% [...] release tablet See Instructions, ASAD BASHIR TABLETA TOWhenSoonKal Mettl MIRANDA, # 30 tablet, 11 Refills, [facility] STORE 00549, 149.86, cm, 08/15/21 11:29:00 EST, Height, 85.7, kg, 07/24/21 14:26:00 EST, Dry Weight Start Date: 10/16/21 Status: Ordered atorvastatin 10 mg oral tablet See Instructions, ASAD BASHIR TABLETA DUQI.COMKal [facility], # 30 tablet, 5 Refills, [facility] ST[facility] 61499, 149.86,cm, 08/15/21 11:29:00 EST, Height, 85.7, kg, 07/24/21 14:26:00 EST, Dry Weight Start Date: 10/29/21 Status: Ordered BD Ultra-Fine pen needles, BERTRAM 4 mm x 32 G BD Ultra-Fine pen needles, BERTRAM 4 mm x 32 G, See Instructions, # 150 each, Refills 11, Tot. [id number], Maintenance, Use for times a days with [...] tablet, Refills 1, Route to Pharmacy Electronically, [facility] ST[facility] 34397, 149.86, cm, 08/15/21 11:29:00 EST, Height, 85.7, [...] 3 Refills, Maintenance, 07/24/21 15:01:00 EST, [facility]/pharmacy #6361, Partial fill upon patient request if the prescription is for a schedule II opioid drug., 152, cm, 06/27... Start Date: 07/24/21 Stop Date: 11/21/21 Status: Ordered ergocalciferol 54274 iu oral capsule See Instructions, TOME 1 CAPSULA POR VIA ORAL ONCE WEEKLY, # 4 capsule, Refills 4, Instructions Replace Required Details, Route to Pharmacy Electronically, [facility]ORE 76803, 149.86, cm, 08/15/21 11:29:00 EST, Height, 85.7, kg, 07/24/21 14:26:00 EST, Start Date: 09/24/21 Status: Ordered Escitalopram = 20 mg, By Mouth, Daily, 0 Refills, Maintenance, 05/13/19 15:46:32 EDT Start Date: 05/13/19 Status: Ordered Eucerin Plus topical lotion 1 application, Topically, 2 times a day, PRN for dry skin, # 600 mL, 1 Refills, Maintenance, 06/01/21 13:51:00 EDT, Lotion, [facility]/pharmacy #8411, Partial fill upon patient request if the [...] INJECT 15 UNITS POR VIA SUBCUTANEA GIBRAN BRIAN AL JULIAN ANTES DE LAS COMIDAS, # 15 Unknown, 5 Refills, [facility], 149.86, cm, 08/15/21 11:29:00 EST, Height, 85.7, kg, 07/24/21 14:26:00 EST, Dry Weight Start Date: 11/13/21 Status: Ordered Imitrex 50 mg oral tablet See Instructions, 1 tablet By Mouth at onset of headache. May repeat once in 2 hours. Not > 4/ week., # 9 tablet, 0 Refills, Maintenance, 01/03/20 13:01:00 EDT, [facility]/pharmacy #4471, 152, cm, 11/01/19 19:28:00 EDT, [...] 12:17:00 EST, 10/01/21 12:17:00 EST, Solution, [facility]/pharmacy #4471, 152, cm, 05/04/21 13:50:00 EDT, Height, 85.2, kg, 04/18/21 13:24:00 EDT, Dry... Start Date: 10/01/21 Stop Date: 09/26/22 Status: Ordered loratadine 10 mg oral tablet See Instructions, ASAD KRYSTEN TABLETA TODOS LOS MIRANDA, # 30 tablet, Refills 5, Instructions Replace Required Details, Route to Pharmacy Electronically, [facility] STORE 14300, 149.86, cm, 08/15/21 11:29:00 EST,Height, 85.7, kg, 07/24/21 14:26:00 EST, Dry Weight Start Date: 09/27/21 Status: Ordered meclizine 25 mg oral tablet 1 tablet = 25 mg, By Mouth, 3 times a day, PRN for dizziness, # 30 tablet, 0 Refills, Maintenance, 04/08/21 22:48:00 EDT, Tablet, [facility]/pharmacy #4471, Partial fill upon patient request if the prescription is for a schedule II opioid drug., 152, cm, 03/... Start Date: 04/08/21 Status: Ordered Xumii COVID-19 Vaccine 30 mcg/0.3 mL preservative-free intramuscular [...] Replace Required Details, Route to Pharmacy Electronically, [id number], [facility] STORE 68421, 149.86, cm, 12... Start Date: 10/15/21 Status: [...] 60 tablet, 4 Refills, Maintenance, [facility] [id number], 152, cm, 11/06/20 10:17:00 EDT, Height, 81, [...]
--- OUTSIDE RECORDS SUMMARY | 2023-07-21 13:06 | XMS_ITS | Continuity of Care Document ---
Author Name Unknown Organization [facility] Address [address] [place] [address]- Care Team Providers Care Help Desk Support Name Role Phone Milton Gross NP Primary Care Physicia n [place] [facility] [place] [facility] [id number] Date(s): 12/13/21 - 01/12/[address] [address]- Attending Physician: Jimenez Grant Admitting Physician: Jimenez [...] Patient Refuses 1Result Comment: NS DIL LOT [id number] EXP 11/2022 2Result Comment: DILUENT LOT#: [id number] EXP: 11/14 MFG: FRESENSIUS Medications albuterol 0.083% inhalation solution 3 mL = 2.5 mg, Inhalation, Every 6 hours, PRN for wheezing, # 25 each, 11 Refills, Maintenance, 02/12/21 12:25:00 EST, Solution, [facility], 152, cm, [...] release tablet See Instructions, ASAD BASHIR TABLETA TOInnovate2S SocialDiabetes MIRANDA, # 30 tablet, 11 Refills, [facility] ST[facility] 67446, 149.86, cm, 08/15/21 11:29:00 EST, Height, 85.7, kg, 07/24/21 14:26:00 EST, Dry Weight Start Date: 10/16/21 Status: Ordered atorvastatin 10 mg oral tablet See Instructions, PJE KRYSTEN TABLETA TOInnovate2S SocialDiabetes MIRANDA, # 30 tablet, 5 Refills, [facility] STORE 15937, 149.86,cm, 08/15/21 11:29:00 EST, Height, 85.7, kg, 07/24/21 14:26:00 EST, Dry Weight Start Date: 10/29/21 Status: Ordered BD Ultra-Fine pen needles, BERTRAM 4 mm x 32 G BD Ultra-Fine pen needles, BERTRAM 4 mm x 32 G, See Instructions, # 150 each, Refills 11, Tot. [id number], Maintenance, Use for times a days with [...] tablet, Refills 1, Route to Pharmacy Electronically, [facility] ST[facility] 54969, 149.86, cm, 08/15/21 11:29:00 EST, Height, 85.7, [...] Mouth, 2 times a day, with food Pashto label, # 60 tablet, 3 Refills, Maintenance, 07/24/21 15:01:00 EST, [facility]/pharmacy #4471, Partial fill upon patient request if the prescription is for a schedule II opioid drug., 152, cm, 06/27... Start Date: 07/24/21 Stop Date: 11/21/21 Status: Ordered ergocalciferol 45493 iu oral capsule See Instructions, TOME 1 CAPSULA POR VIA ORAL ONCE WEEKLY, # 4 capsule, Refills 4, Instructions Replace Required Details, Route to Pharmacy Electronically, [facility] STORE 93106, 149.86, cm, 08/15/21 11:29:00 EST, Height, 85.7, kg, 07/24/21 14:26:00 EST, Start Date: 09/24/21 Status: Ordered Escitalopram = 20 mg, By Mouth, Daily, 0 Refills, Maintenance, 05/13/19 15:46:32 EDT Start Date: 05/13/19 Status: Ordered Eucerin Plus topical lotion 1 application, Topically, 2 times a day, PRN for dry skin, # 600 mL, 1 Refills, Maintenance, 06/01/21 13:51:00 EDT, Lotion, [facility], Partial fill upon patient request if the [...] # 15 Unknown, 5 Refills, [facility], 149.86, cm, 08/15/21 11:29:00 EST, Height, 85.7, kg, 07/24/21 14:26:00 EST, Dry Weight Start Date: 11/13/21 Status: Ordered Imitrex 50 mg oral tablet See Instructions, 1 tablet By Mouth at onset of headache. May repeat once in 2 hours. Not > 4/ week., # 9 tablet, 0 Refills, Maintenance, 01/03/20 13:01:00 EDT, [facility]/pharmacy #4471, 152, cm, 11/01/19 19:28:00 EDT, Height, [...] 09/26/22 12:17:00 EST, 10/01/21 12:17:00 EST, Solution, [facility]/pharmacy #4471, 152, cm, 05/04/21 13:50:00 EDT, Height, 85.2, kg, 04/18/21 13:24:00 EDT, Dry... Start Date: 10/01/21 Stop Date: 09/26/22 Status: Ordered loratadine 10 mg oral tablet See Instructions, ASAD BURKETT TODOS LOS MIRANDA, # 30 tablet, Refills 5, Instructions Replace Required Details, Route to Pharmacy Electronically, [facility], 149.86, cm, 08/15/21 11:29:00 EST,Height, 85.7, kg, 07/24/21 14:26:00 EST, Dry Weight Start Date: 09/27/21 Status: Ordered meclizine 25 mg oral tablet 1 tablet = 25 mg, By Mouth, 3 times a day, PRN for dizziness, # 30 tablet, 0 Refills, Maintenance, 04/08/21 22:48:00 EDT, Tablet, [facility]/pharmacy #4471, Partial fill upon patient request if the prescription is for a schedule II opioid drug., 152, cm, 03/... Start Date: 04/08/21 Status: Ordered Markado COVID-19 Vaccine 30 mcg/0.3 mL preservative-free intramuscular [...] Replace Required Details, Route to Pharmacy Electronically, [id number], [id number], 149.86, cm, 12... Start Date: 10/15/21 Status: [...] oral tablet See Instructions, ASAD SHAWA DOS JOSIEES AL JULIAN, # 60 tablet, 4 Refills, Maintenance, [facility] [id number], 152, cm, 11/06/20 10:17:00 EDT, Height, 81, [...]
--- OUTSIDE RECORDS SUMMARY | 2023-07-21 13:06 | XMS_ITS | Continuity of Care Document ---
Author Name Unknown Organization [facility] Address [address] [place] [address]- Care Team Providers Care Cardiology Specialist Name Role Phone Milton Gross NP Primary Care Physicia n Encounter [facility] Date(s): 12/25/21 - 01/24/22 [facility] [address] [place] [address]- Attending Physician: Jimenez Grant Admitting Physician: Jimenez [...] Patient Refuses 1Result Comment: NS DIL LOT [id number] EXP 11/2022 2Result Comment: DILUENT LOT#: [id number] EXP: 11/14 MFG: FRESENSIUS Medications albuterol 0.083% [...] release tablet See Instructions, ASAD BASHIR TABLETA [employer] Erly MIRANDA, # 30 tablet, 11 Refills, [facility], 149.86, cm, 08/15/21 11:29:00 EST, Height, 85.7, kg, 07/24/21 14:26:00 EST, Dry Weight Start Date: 10/16/21 Status: Ordered atorvastatin 10 mg oral tablet See Instructions, ASAD BASHIR TABLETA [employer], # 30 tablet, 5 Refills, [facility], 149.86,cm, 08/15/21 11:29:00 EST, Height, 85.7, kg, 07/24/21 14:26:00 EST, Dry Weight Start Date: 10/29/21 Status: Ordered BD Ultra-Fine pen needles, BERTRAM 4 mm x 32 G BD Ultra-Fine pen needles, BERTRAM 4 mm x 32 G, See Instructions, # 150 each, Refills 11, Tot. [id number], Maintenance, Use for times a days with [...] tablet, Refills 1, Route to Pharmacy Electronically, [id number], 149.86, cm, 08/15/21 11:29:00 EST, Height, 85.7, [...] Mouth, 2 times a day, with food Eritrean label, # 60 tablet, 3 Refills, Maintenance, 07/24/21 15:01:00 EST, [facility]/pharmacy #[id number], Partial fill upon patient request if the prescription is for a schedule II opioid drug., 152, cm, 06/27... Start Date: 07/24/21 Stop Date: 11/21/21 Status: Ordered ergocalciferol 77356 iu oral capsule See Instructions, TOME 1 CAPSULA POR VIA ORAL ONCE WEEKLY, # 4 capsule, Refills 4, Instructions Replace Required Details, Route to Pharmacy Electronically, [facility], 149.86, cm, 08/15/21 11:29:00 EST, Height, 85.7, kg, 07/24/21 14:26:00 EST, Start Date: 09/24/21 Status: Ordered Escitalopram = 20 mg, By Mouth, Daily, 0 Refills, Maintenance, 05/13/19 15:46:32 EDT Start Date: 05/13/19 Status: Ordered Eucerin Plus topical lotion 1 application, Topically, 2 times a day, PRN for dry skin, # 600 mL, 1 Refills, Maintenance, 06/01/21 13:51:00 EDT, Lotion, [facility]/pharmacy #[id number], Partial fill upon patient request if the [...] # 15 Unknown, 5 Refills, [facility], 149.86, cm, 08/15/21 11:29:00 EST, Height, 85.7, kg, 07/24/21 14:26:00 EST, Dry Weight Start Date: 11/13/21 Status: Ordered Imitrex 50 mg oral tablet See Instructions, 1 tablet By Mouth at onset of headache. May repeat once in 2 hours. Not > 4/ week., # 9 tablet, 0 Refills, Maintenance, 01/03/20 13:01:00 EDT, [facility]/pharmacy #[id number], 152, cm, 11/01/19 19:28:00 EDT, Height, [...] 12:17:00 EST, 10/01/21 12:17:00 EST, Solution, [facility]/pharmacy #[id number], 152, cm, 05/04/21 13:50:00 EDT, Height, 85.2, kg, 04/18/21 13:24:00 EDT, Dry... Start Date: 10/01/21 Stop Date: 09/26/22 Status: Ordered loratadine 10 mg oral tablet See Instructions, ASAD MIRANDA, # 30 tablet, Refills 5, Instructions Replace Required Details, Route to Pharmacy Electronically, [facility], 149.86, cm, 08/15/21 11:29:00 EST,Height, 85.7, kg, 07/24/21 14:26:00 EST, Dry Weight Start Date: 09/27/21 Status: Ordered meclizine 25 mg oral tablet 1 tablet = 25 mg, By Mouth, 3 times a day, PRN for dizziness, # 30 tablet, 0 Refills, Maintenance, 04/08/21 22:48:00 EDT, Tablet, [facility]/pharmacy #[id number], Partial fill upon patient request if the prescription is for a schedule II opioid drug., 152, cm, 03/... Start Date: 04/08/21 Status: Ordered Onsite Care COVID-19 Vaccine 30 mcg/0.3 mL preservative-free intramuscular [...] Replace Required Details, Route to Pharmacy Electronically, [id number], [facility], 149.86, cm, 12... Start Date: 10/15/21 Status: [...] # 60 tablet, 4 Refills, Maintenance, [id number], 152, cm, 11/06/20 10:17:00 EDT, Height, 81, [...]
--- OUTSIDE RECORDS SUMMARY | 2023-07-21 13:06 | XMS_ITS | Continuity of Care Document ---
Author Name Unknown Organization [facility] Address [address] [facility], [address] Floor, [address] [place] [address]- Care Team Providers Care Asset Protection Agent Name Role Phone Renato MORRISON, Milton Loyola Primary Care Physicia n Encounter [facility] [place] Date(s[place] 12/31/19 - 01/07/20 [facility] [address], [address], [address] [place] [address]- [facility] Attending Physician: Jenny Silva MD Allergies, Adverse Reactions, [...] Stop 10/16/20 12:40:00 EST, 10/22/19 12:40:00 EST, [facility]/pharmacy #447... Start Date: 10/22/19 Stop Date: 10/16/20 [...] 18:58:54 EDT, Aerosol, Route to Pharmacy Electronically, [id number], [facility]/pharmacy #[id number], Compound Start Date: 11/02/18 [...] 11/02/18 18:58:53 EDT, Route to Pharmacy Electronically, [id number], [facility]/pharmacy #[id number] Start Date: 11/02/18 Status: Ordered BD Ultra-Fine pen needles, BERTRAM 4 mm x 32 G BD Ultra-Fine pen needles, BERTRAM 4 mm x 32 G, See Instructions, # 150 each, Refills 11, Tot. [id number], Maintenance, Use for times a days with [...] 11/02/18 18:58:54 EDT, Route to Pharmacy Electronically, [id number], [facility]/pharmacy #[id number] Start Date: 11/02/18 Stop [...] tablet, 0 Refills, Maintenance, 01/03/20 13:01:00 EDT, [facility]/pharmacy #[id number], 152, cm, 11/01/19 19:28:00 [...] 11/16/19 10:57:00 EDT, Route to Pharmacy Electronically, [facility]/pharmacy #[id number], 152, cm, 11/01/19 19:28:00 [...] 11/01/19 16:17:00 EDT, Route to Pharmacy Electronically, [facility]/pharmacy #[id number], 152, cm, 10/22/19 15:02:00 EST, Height Start Date: 11/01/19 Stop Date: 10/26/20 Status: Ordered riboflavin 100 mg oral tablet 1 tablet = 100 mg, By Mouth, 2 times a day, # 60 tablet, 4 Refills, Maintenance, 01/03/20 13:00:00 EDT, [facility]/pharmacy #[id number], 152, cm, 11/01/19 19:28:00 [...]
--- OUTSIDE RECORDS SUMMARY | 2023-07-21 13:06 | XMS_ITS | Continuity of Care Document ---
Author Name Unknown Organization [facility] Address [address] [place] [address]- Care Team Providers Care Breaker Hand Name Role Phone Renato MORRISON, Milton Loyola Primary Care Physicia n En[place] [facility] [place] [id number] Date(s): 08/22/20 - 09/21/20 [facility] [address] [place] [address]- Attending Physician: Jimenez Grant Admitting Physician: Jimenez [...] 11 Refills, Maintenance, 06/01/20 10:23:00 EDT, Solution, [facility]/pharmacy #[id number], 152, cm, 06/01/20 9:54:00 EDT, Height, 81, kg, 11/01/19 19:28:00 EDT, Dry Weight Start Date: 06/01/20 Status: Ordered albuterol CFC free 90 mcg/inh inhalation aerosol 2, puffs, Inhalation, Every 4 hours, PRN, # 18 Gm, Refills 11, Tot. Refills 11, Maintenance, 06/01/20 10:23:00 EDT, Aerosol, Route to Pharmacy Electronically, [id number], [facility]/pharmacy #[id number], 152, cm, 06/01/20 9:54:00 [...] 06/01/20 10:23:00 EDT, Route to Pharmacy Electronically, [facility]/pharmacy #[id number], 152, cm, 06/01/20 9:54:00 EDT, Height, 81, kg, 11/01/19 19:28:00 EDT, Dry Weight Start Date: 06/01/20 Status: Ordered BD Ultra-Fine pen needles, BERTRAM 4 mm x 32 G BD Ultra-Fine pen needles, BERTRAM 4 mm x 32 G, See Instructions, # 150 each, Refills 11, Tot. [id number], Maintenance, Use for times a days with [...] 06/01/20 10:24:00 EDT, Route to Pharmacy Electronically, [facility]/pharmacy #[id number], 152, cm, 06/01/20 9:54:00 [...] 11 Refills, Maintenance, 06/01/20 10:19:00 EDT, Lotion, [facility]/pharmacy #[id number], 1 application Topically 2 [...] tablet, 0 Refills, Maintenance, 01/03/20 13:01:00 EDT, [facility]/pharmacy #[id number], 152, cm, 11/01/19 19:28:00 [...] 10/26/20 16:17:00 EST, Route to Pharmacy Electronically, [facility]/pharmacy #[id number], 152, cm, 06/01/20 9:54:00 EDT, Height, 81, kg,... Start Date: 10/26/20 Stop Date: 10/21/21 Status: Ordered metoprolol 25 mg oral tablet 25 mg, 1, tablet, By Mouth, 2 times a day, for 90 days, This is an increase in dose., # 180 tablet,Refills 3, Tot. Refills 3, Hard Stop 10/26/20 16:17:00 EST, 11/01/19 16:17:00 EDT, Route to Pharmacy Electronically, [facility]/pharmacy #[id number], 152, cm, 10/22... Start Date: 11/01/19 Stop Date: 10/26/20 Status: Ordered riboflavin 100 mg oral tablet 1 tablet = 100 mg, By Mouth, 2 times a day, # 60 tablet, 4 Refills, Maintenance, 01/03/20 13:00:00 EDT, [facility]/pharmacy #[id number], 152, cm, 11/01/19 19:28:00 EDT, Height, 81, kg, 11/01/19 19:28:00 EDT, Dry Weight Start Date: 01/03/20 Stop Date: 06/01/20 Status: Ordered sulindac 150 mg oral tablet See Instructions, TOME KRYSTEN TABLETA POR VIA ORAL DOS VECES AL JULIAN CUANDO SEA NECESARIO, # 60 tablet,2 Refills, 06/01/20 10:19:00 EDT, [facility]/pharmacy #[id number], 152, cm, 06/01/20 9:54:00 [...]
--- OUTSIDE RECORDS SUMMARY | 2023-07-21 13:06 | XMS_ITS | Continuity of Care Document ---
Author Name Unknown Organization [facility] ter Address [address] [place] [id number]- Care Team Providers Care Sales Promotion Officer Name Role Phone Renato MORRISON, Milton Loyola Primary Care Physicia n [place] [facility] [place]23 - 01/05/[address] [address]- Encounter Diagnosis Bronchitis(Final) - 01/05/23 Discharge Disposition: A-D/C Home Attending Physician: Giovanni Campbell MD Admitting Physician: Giovanni Campbell MD Referring Physician: Not on Staff, Referring MD Allergies, Adverse Reactions, Alerts Substance Reaction Severity Status traMADol tongue numbness--but she fell near loc Active Immunizations Given and Recorded Vaccine Date Status Refusal Reason [id number] bivalent booster vax 07/17/22 Given influenza virus [...] Patient Refuses 1Result Comment: NS DIL LOT [id number] EXP 11/2022 2Result Comment: DILUENT LOT#: [id number] EXP: 11/14 MFG: FRESENSIUS Medications albuterol 0.083% inhalation solution 3 mL = 2.5 mg, Inhalation, Every 6 hours, PRN for wheezing, # 25 each, 11 Refills, Maintenance, 05/24/22 14:28:00 EDT, Solution, [facility]/pharmacy #[id number], 149.86, cm, 05/24/22 13:53:00 EDT, Height, [...] = 5 mg, By Mouth, Daily, by [employer] records, # 30 tablet, 2 Refills, Maintenance, 12/06/22 16:52:00 EDT, Tablet, [facility]/pharmacy #[id number], Partial fill upon patient request if the prescription is for a schedule II opioid drug., 149.8, cm, 07/22/22 9:... Start Date: 12/06/22 Stop Date: 03/06/23 Status: Ordered Aspirin Low Dose 81 mg oral delayed release tablet See Instructions, ASAD BASHIR TABLETA MARIANNE MIRANDA by [employer] records continue, # 30 tablet, 11 Refills, 07/04/22 11:40:00 EST, [id number], 149.8, cm, 07/04/22 11:20:00 EST, Height, 83.3, kg, 06/14/22 18:50:00 EDT, Dry Weight Start Date: 07/04/22 Status: Ordered atorvastatin 10 mg oral tablet See Instructions, ASAD BASHIR TABLETA MARIANNE JORDANS, # 30 tablet, 11 Refills, 05/24/22 14:42:00 EDT, [id number], 149.86, cm, 05/24/22 13:53:00 EDT, Height, 85.7, kg, 07/24/21 14:26:00 EST, Dry Weight Start Date: 05/24/22 Status: Ordered BD Ultra-Fine pen needles, BERTRAM 4 mm x 32 G BD Ultra-Fine pen needles, BERTRAM 4 mm x 32 G, See Instructions, # 150 each, Refills 11, Tot. [id number], Maintenance, Use for times a days with [...] Compound Start Date: 07/25/21 Status: Ordered ergocalciferol 19113 iu oral capsule 1, capsule, By Mouth, Every week, # 4 capsule, Refills 4, Maintenance, 10/22/22 15:42:00 EST, [id number], 149.8, cm, 07/22/22 9:38:00 EST, Height, 83.3, kg, 06/14/22 18:50:00 EDT, Dry Weight Start Date: 10/22/22 Status: Ordered Escitalopram = 20 mg, By Mouth, Daily, 0 Refills, Maintenance, 05/13/19 15:46:32 EDT Start Date: 05/13/19 Status: Ordered Eucerin Plus topical lotion 1 application, Topically, 2 times a day, PRN for dry skin, # 600 mL, 1 Refills, Maintenance, 05/24/22 14:28:00 EDT, Lotion, [facility]/pharmacy #[id number], Partial fill upon patient request [...] 0 Refills, Maintenance, 01/03/20 13:01:00 EDT, [facility]/pharmacy #[id number], 152, cm, 11/01/19 19:28:00 EDT, Height, 81, kg, 11/01/19 19:28:00 EDT,... Start Date: 01/03/20 Status: Ordered Insulin Lispro Scot KwikPen 100 units/mL injectable solution = 15 units, Subcutaneous Infusion, 3 times a day before meals, for 30 days, with breakfast and lunch rotate injection sites. stop novolog due insurance issues. in luxembourgish, # 15 mL, 11 Refills, Hard Stop 08/07/23 12:49:00 EST, 08/12/22 12:49:00 EST,... Start Date: 08/12/22 Stop Date: 08/07/23 Status: Ordered Insulin Lispro Scot KwikPen 100 units/mL injectable solution = 15 units, Subcutaneous Infusion, 3 times a day before meals, with breakfast and lunch rotate injection sites. stop novolog due insurance issues. in luxembourgish, # 15 mL, 11 Refills, Maintenance, 08/07/23 12:49:00 EST, [facility]/pharmacy #[id number], Partial fill... Start Date: 08/07/23 [...] 09/10/25 12:17:00 EST, 09/15/24 12:17:00 EST, Solution, [facility]/pharmacy #[id number], 149.8, cm, 07/22/22 9:38:00 EST, Height, 83.3, kg, 06/14/22 18:50:00 EDT, Start Date: 09/15/24 Stop Date: 09/10/25 Status: Ordered loratadine 10 mg oral tablet See Instructions, ASAD BURKETT TODOKal LOS MIRANDA, # 30 tablet, Refills 5, Tot. Refills 5, 05/24/2214:42:00 EDT, Instructions Replace Required Details, Route to Pharmacy Electronically, [facility]/pharmacy#[id number], 149.86, cm, 05/24/22 13:53:00 EDT, Height, 8... Start Date: 05/24/22 Status: Ordered meclizine 25 mg oral tablet 1 tablet = 25 mg, By Mouth, 3 times a day, PRN for dizziness, # 30 tablet, 0 Refills, Maintenance, 05/31/22 13:26:00 EDT, Tablet, [facility]/pharmacy #[id number], Partial fill upon patient request [...] 05/31/22 13:26:00 EDT, Route to Pharmacy Electronically, [facility]/pharmacy #[id number], 149.86, cm, 10... Start Date: 05/31/22 [...] Replace Required Details, Route to Pharmacy Electronically, [id number]... Start Date: 03/28/22 Status: Ordered Pulse Oximeter [...] # 60 tablet, 4 Refills, Maintenance, [facility] [id number], 152, cm, 11/06/20 10:17:00 EDT, Height, 81, kg, 11/01/19 19:28:00 EDT, Dry Weight Start Date: 03/07/21 Status: Ordered Zithromax 250 mg oral tablet 1 pack/packet, By Mouth, Once, # 6 tablet, 0 Refills, Soft Stop, 01/05/23 23:08:00 EDT, Tablet, [facility]/pharmacy #[id number], Partial fill upon patient request [...] Exam Date Time Procedure Performing Provider Status 01/05/23 10:[address] Angio Chest Aishwarya Stewart; Aut h (Verified) Notes: (CT Angio Chest) Reason For Exam: PE suspected, Intermediate prob, positive D-dimer,;Other: RESULT: CT Angio Chest EXAMINATION: CT Angio Chest INDICATION: INDICATION: Chest pain, shortness of breath. Concern for pulmonary embolism. TECHNIQUE: Spiral CTA of the chest was performed after rapid IV contrast administration without cardiac gating, triggered by an KISHORE on the main pulmonary artery. Images are formatted in multiple planes using 2-D multiplanar and 3-D maximum intensity projection. 100 cc of Omnipaque 300 was administered intravenously. This study was performed without oral contrast. Weight-based protocol using automatic tube modulation was used to optimize exposure parameters. CTDIvol Body: 11.03 mGy, DLP Body: 626 mGy*cm. COMPARISONS: None. ANGIOGRAPHIC FINDINGS: No pulmonary embolism to the subsegmental level. Normal caliber pulmonary arteries. No acute aortic abnormality seen on this study performed without cardiac gating. NON-ANGIOGRAPHIC FINDINGS: Java Support Engineer View Findings, Lines and Tubes: None. Trachea and Airways: Patent without evidence of tracheal or endobronchial lesion. Lungs and Pleura: Mild bibasilar atelectasis. No effusion or pneumothorax. Mediastinum and jerardo: No mass or hematoma. No mediastinal or hilar lymphadenopathy. No esophageal abnormality. Partially imaged thyroid is unremarkable. Heart: Heart is normal in size. No pericardial effusion. Mild coronary artery calcification. Chest Wall Soft Tissues: Normal. Diaphragm and upper abdomen: No significant abnormality. Bones: No acute abnormality. IMPRESSION: No evidence of pulmonary embolism. I have personally reviewed the images and I agree with this report. WSN: [id number] Ordering Physician: Jimmie Arthur Dictated By: Ladarius Dias MD Dictated Date/Time: 01/05/23 10:51 p Reviewed By: Eloisa Gamboa MD Signed By: Eloisa Gamboa MD Signed Date/Time: 01/05/23 10:56 pm Transcribed By: KASSIE Transcribed Date/Time: 01/05/23 10:26 pm * Exam Date Time Procedure Performing Provider Status 01/05/23 7:59 PM Chest Portable Xiao , Faustino; Auth (Ba ified) Notes: (Chest Portable) Reason For Exam: Shortness of Breath RESULT: Chest Portable Chest Portable Hx of Present Illness: SOB x's 6 days. CP and LUND and unproductive cough. Afebrile.. feels suffocated . 10 10 pain in both head and chest. HX of blood clots SOB increases w exertion; Reason: Shortness of Breath; Clinical Question(s): CHF COMPARISON: 07/09/2022. FINDINGS: LINES AND TUBES: EKG leads project over the chest. LUNGS AND PLEURA: Clear lungs. Normal pulmonary vascularity. No pleural effusion. No pneumothorax. HEART, MEDIASTINUM AND JERARDO: Heart is normal in size. Normal mediastinal and hilar contour. BONES AND SOFT TISSUES: No acute abnormality. IMPRESSION: No acute abnormality. WSN: [id number] Ordering Physician: Jimmie Arthur Dictated By: Emily Brian MD Dictated Date/Time: 01/05/23 8:05 pm Reviewed By: Emily Brian MD Signed By: Emily Brian MD Signed Date/Time: 01/05/23 8:05 pm Transcribed By: KASSIE Transcribed Date/Time: 01/05/23 8:04 pm Vital Signs Most recent to oldest [Reference Range]: 1 2 3 Height 145 cm (01/05/23 9:32 PM) 145 cm (01/05/23 7:16 PM) Weight 81 kg (01/05/23 9:32 PM) 81 kg (01/05/23 7:16 PM) Oxygen Saturation [94-100 %] 98 % (01/05/23 11:00 PM) 98 % (01/05/23 10:00 PM) 98 % (01/05/23 9:32 PM) Pulse Rate [55-90 bpm] 104 bpm *H* (01/05/23 11:00 PM) 92 bpm *H* (01/05/23 10:00 PM) 96 bpm *H* (01/05/23 9:32 PM) Body Mass Index [18.5-24.99 kg/m2] 38.53 kg/m2 *>HHI* (01/05/23 9:32 PM) Blood Pressure [90-138/55-84 mm Hg] 111/73mm Hg (01/05/23 11:00 PM) 166/87mm Hg *H* (01/05/23 10:00 PM) 137/77mm Hg (01/05/23 9:32 PM) Respiratory Rate [16-30 br/min] 26 br/min (01/05/23 11:00 PM) 23 br/min (01/05/23 10:00 PM) 14 br/min *L* (01/05/23 9:32 PM) Temperature [96.8-100.4 DegF] 98.1 DegF (01/05/23 10:00 PM) 98.0 DegF (01/05/23 9:32 PM) 97.6 DegF (01/05/23 7:16 PM) Mode of Delivery (Oxygen) Room air (01/05/23 11:00 PM) Room air (01/05/23 10:00 PM) Room air (01/05/23 9:32 PM) Blood pressure sites Arm, left (01/05/23 11:00 PM) Arm, left (01/05/23 10:00 PM) Arm, right (01/05/23 9:32 PM) Temperature Route Oral (01/05/23 10:00 PM) Oral (01/05/23 9:32 PM) Oral (01/05/23 7:16 PM) Dry Weight 81 kg (01/05/23 9:32 PM) 81 kg (01/05/23 7:16 PM) Social History Social History Type Response Smoking Status Never (less than 100 in lifetime) entered on: 06/14/22 Sex Note * Jimmie Arthur DO: PERFORM Event Display: Patient Education Leaflets Authored Date: [id number] Bronchitis, Antibiotic Treatment (Adult) ?? [id number] Bronquitis: con antibi??ticos (adultos) La bronquitis consiste en la inflamaci??n e hinchaz??n de las v??as respiratorias (tubos bronquiales) de los pulmones. Suele deberse a janice infecci??n. Los s??ntomas incluyen tos seca y ??spera que empeora por la noche. La tos puede hacer que escupa mucosidad amarillo-verdosa. Tambi??n puede sentir falta de aire o silbidos. Otros s??ntomas son cansancio, malestar en el pecho, fiebre y escalofr??os. Esta enfermedad puede contagiarse a otras personas catie los primeros d??as. Se transmite por el aire, mediante la tos o el estornudo de la persona afectada. Tambi??n se contagia por contacto directo. Es decir, si toca a la persona enferma y despu??s se toca los ojos, la nariz o la boca. La causa principal de la bronquitis es un virus. Por lo general, esta afecci??n no se trata con antibi??ticos. Ani la bronquitis grave o cr??darci se puede tratar con antibi??ticos. Puede que le administren otros medicamentos para aliviar los s??ntomas. Los s??ntomas pueden durar hasta 2??semanas. La tos puede durar m??s tiempo.?? Cuidados en el hogar Siga estas recomendaciones para cuidarse en mars casa: ??? [place] el antibi??ishmael exactamente meek le indicaron. No deje de tomarlo, incluso aunque se sienta mejor. Termine todo el antibi??ishmael.? Gonzalo s??ntomas son graves, descanse en mars casa catie los primeros 2-3??d??as. Cuando retome so actividades habituales, evite cansarse demasiado. ??? No fume. Evite el tabaquismo pasivo. ??? Puede usar medicamentos de venta jagdeep para controlar la fiebre o el dolor. O incluso puede usar otro medicamento seg??n le hayan indicado. Si tiene janice enfermedad hep??jose o renal cr??darci, o tuvo alguna vez janice ??lcera estomacal o sangrado en el est??jackie o en los intestinos, consulte con el proveedor de atenci??n m??dica antes de brant estos medicamentos. Tambi??n hable con el proveedor si est?? tomando medicamentos para prevenir la formaci??n de co??gulos. [place] debe administrar aspirinas a personas menores de 18??a??os que tengan un virus o fiebre. Puede causar da??os graves en el h??gado o en el cerebro, o incluso la muerte. ??? El cuerpo necesita mucho l??quido ahora. Liv de 6??a??8??vasosde l??quido por d??a. [place] incluye agua, refrescos, bebidas deportivas, jugos, t?? o sopa. Los l??quidos extras ayudar??n a que la mucosidad de la nariz y de los pulmones se afloje m??s f??cil. ??? Es posible que tenga poco apetito. Janice dieta ligera es adecuada. ??? Los medicamentos de venta jagdeep para tratar la tos, el resfr??o y el dolor de garganta no reducir??n la duraci??n de la enfermedad, ani pueden ayudar a aliviar los s??ntomas. No use descongestivos si tiene presi??n arterial nacho. ?? Visita de seguimiento Asista a los controles con mars proveedor de atenci??n m??dica seg??n le hayan indicado. Si le hicieron janice radiograf??a o un electrocardiograma (ECG), le informar??n de los nuevos resultados de la prueba que puedan afectar la atenci??n m??dica que necesita. Pregunte al proveedor de atenci??n m??dica sobre las vacunas antineumoc??cicas y la vacuna antigripal anual. Existen 2??tipos de vacunas antineumoc??cicas. Es posible que necesite ambas. El riesgo deinfecci??n pulmonar es mayor si algo de lo siguiente corresponde a mars ame: ??? Tiene 65??a??os o m??s ??? Tiene janice enfermedad pulmonar cr??darci ??? Tiene janice afecci??n que afecta el sistema inmunitario ??? Fuma ?? Cu??ndo buscar atenci??n m??dica Llame de inmediato al proveedor de atenci??n m??dica si nota alguno de los siguientes s??ntomas: ??? Fiebre de 100.4?F (38?C) o superior ??? Tos con m??s mucosidad ??? Dolor en la ralf o de o??do ??? Debilidad leve, somnolencia, dolor de shoshana o rigidez en el santo ?? Cu??ndo llamar al?? 911 Llame al?? 911 si ocurre algo de lo siguiente: ??? Tos con juan carlos ??? Empeoramiento de la debilidad, la somnolencia, el dolor de shoshana o la rigidez en el santo ??? Dificultades para respirar, sibilancias o dolor al respirar ??? Color azulado, ariel o woody en la piel o en los labios ??? Sensaci??n de muerte ?? Last Reviewed Date: 2021 ?? [id number] [employer]. Todos los derechos reservados. Esta informaci??n no pretende sustituir la atenci??n m??dica profesional. S??lo mars m??dico puede diagnosticar y tratar un problema de rafael. ?? Portable XR Chest Views * [employer] , CIS S: TRANSCRIBE Snehal DINERO, Emily R: VERIFY Event Display: Result: Authored Date: [id number] Chest Portable Hx of Present Illness: SOB x's 6 days. CP and LUND and unproductive cough. Afebrile.. feels suffocated . 10 10 pain in both head and chest. HX of blood clots SOB increases w exertion; Reason: Shortness of Breath; Clinical Question(s): CHF COMPARISON: 07/09/2022. FINDINGS: LINES AND TUBES: EKG leads project over the chest. LUNGS AND PLEURA: Clear lungs. Normal pulmonary vascularity. No pleural effusion. No pneumothorax. HEART, MEDIASTINUM AND JERARDO: Heart is normal in size. Normal mediastinal and hilar contour. BONES AND SOFT TISSUES: No acute abnormality. IMPRESSION: No acute abnormality. WSN: [id number] Ordering Physician: Jimmie Arthur Dictated By: Emily Brian MD Dictated Date/Time: 01/05/23 8:05 pm Reviewed By: Emily Brian MD Signed By: Emily Brian MD Signed Date/Time: 01/05/23 8:05 pm Transcribed By: KASSIE Transcribed Date/Time: 01/05/23 8:04 pm CTA Chest vessels W contrast IV * [employer] , CIS S: TRANSCRIBE Eloisa Gamboa MD: VERIFY Ladarius Dias MD: SIGN Event Display: Result: Authored Date: [id number] EXAMINATION: CT Angio Chest INDICATION: INDICATION: Chest pain, shortness of breath. Concern for pulmonary embolism. TECHNIQUE: Spiral CTA of the chest was performed after rapid IV contrast administration without cardiac gating, triggered by an KISHORE on the main pulmonary artery. Images are formatted in multiple planes using 2-D multiplanar and 3-D maximum intensity projection. 100 cc of Omnipaque 300 was administered intravenously. This study was performed without oral contrast. Weight-based protocol using automatic tube modulation was used to optimize exposure parameters. CTDIvol Body: 11.03 mGy, DLP Body: 626 mGy*cm. COMPARISONS: None. ANGIOGRAPHIC FINDINGS: No pulmonary embolism to the subsegmental level. Normal caliber pulmonary arteries. No acute aortic abnormality seen on this study performed without cardiac gating. NON-ANGIOGRAPHIC FINDINGS: [employer] Support Engineer View Findings, Lines and Tubes: None. Trachea and Airways: Patent without evidence of tracheal or endobronchial lesion. Lungs and Pleura: Mild bibasilar atelectasis. No effusion or pneumothorax. Mediastinum and jerardo: No mass or hematoma. No mediastinal or hilar lymphadenopathy. No esophageal abnormality. Partially imaged thyroid is unremarkable. Heart: Heart is normal in size. No pericardial effusion. Mild coronary artery calcification. Chest Wall Soft Tissues: Normal. Diaphragm and upper abdomen: No significant abnormality. Bones: No acute abnormality. IMPRESSION: No evidence of pulmonary embolism. I have personally reviewed the images and I agree with this report. WSN: [id number] Ordering Physician: Jimmie Arthur Dictated By: Ladarius Dias MD Dictated Date/Time: 01/05/23 10:51 p Reviewed By: Eloisa Gamboa MD Signed By: Eloisa Gamboa MD Signed Date/Time: 01/05/23 10:56 pm Transcribed By: KASSIE Transcribed Date/Time: 01/05/23 10:26 pm Patient Care team information Care Team Personnel Name: Jesika Hua RN [facility] RN Member Role: Primary Care Nurse Name: Milton Gross NP Position: [facility] PCO Associate Professional Member Role: PCP Address: Address: [address] [place] [address]- Name: Maritza Anguiano Position: [facility] ED TA [facility] Member Role: Permastone Installer Name: Giovanni Campbell MD Position: [facility] ED Medicine MD Member Role: Admitting Physician Address: Address: [address] [place] [id number]- Name: Arely Palma Position: [facility] ED RN W/OE and Tasks Member Role: Patient Care Provider Name: Jimmie Arthur DO Position: [facility] Resident Member Role: ED Resident Address: Address: [address] [place] [id number]- Care Team Related Persons Name: YASMIN FISHER Address: home [address] [address]
--- OUTSIDE RECORDS SUMMARY | 2023-07-21 13:06 | XMS_ITS | Continuity of Care Document ---
Author Name Unknown Organization [facility] Address [address] [place] [address]- Care Team Providers Care Director Of Quantitative Research Name Role Phone Renato MORRISON, Milton Loyola [id number] - 08/[facility]/21 [facility] [address] [address]- Attending Physician: Joselin Guerrero MD Admitting Physician: [...] Patient Refuses 1Result Comment: NS DIL LOT [id number] EXP 11/2022 2Result Comment: DILUENT LOT#: [id number] EXP: 11/14 MFG: FRESENSIUS Medications acetaminophen 500 mg oral tablet 1 tablet = 500 mg, By Mouth, 3 times a day, for 30 days, take alternating with diclofenac. Mongolian label, # 90 tablet, 0 Refills, Acute 08/23/21 15:01:00 EST, 07/24/21 15:01:00 EST, Tablet, [facility]/pharmacy #[id number], Partial fill upon patient request if the... Start Date: 07/24/21 Stop Date: 08/23/21 Status: Ordered albuterol 0.083% inhalation solution 3 mL = 2.5 mg, Inhalation, Every 6 hours, PRN for wheezing, # 25 each, 11 Refills, Maintenance, 10/06/20 12:25:00 EST, Solution, [facility]/pharmacy #[id number], 152, cm, 06/01/20 9:54:00 EDT, Height, 81, kg, 11/01/19 19:28:00 EDT, Dry Weight Start Date: 10/06/20 Status: Ordered albuterol CFC free 90 mcg/inh inhalation aerosol 2, puffs, Inhalation, Every 4 hours, PRN, # 18 Gm, Refills 11, Tot. Refills 11, Maintenance, 10/06/20 12:25:00 EST, Aerosol, Route to Pharmacy Electronically, [id number], [id number] 152, cm, 06/01/20 9:54:00 EDT, Hei... [...] 12:25:00 EST, [id number], cm, 06/01/20 9:54:00 EDT, Height, 81, kg, 11/01/19 19:28:00 EDT, Dry Weight Start Date: 10/06/20 Status: Ordered atorvastatin 10 mg oral tablet 1 tablet = 10 mg, By Mouth, Daily, # 30 tablet, 5 Refills, Maintenance, 05/05/21 11:03:00 EDT, [facility]/pharmacy #[id number], Partial fill [...] Instructions, # 150 each, Refills 11, Tot. [id number], Maintenance, Use for times a days with insulin. DM E119, 10/06/20 12:18:00 EST, Compound, 152, cm, 06/01/20 9:54:00 EDT, Height, 81, kg, 11/01/19 1... Start Date: 10/06/20 Status: Ordered BENGAY Arthritis topical cream See Instructions, rub into areas of pain and muscle tightness; instructions in Mongolian, # 1 each, 2Refills, Maintenance, 12/14/20 11:39:00 EDT, [facility]/pharmacy #[id number], Partial fill [...] 11/28/20 10:24:00 EDT, Route to Pharmacy Electronically, [facility]/pharmacy #[id number], 152, cm, 06/01/20 9:54:00 EDT, [...] Mouth, 2 times a day, with food Mongolian label, # 60 tablet, 3 Refills, Maintenance, 07/24/21 15:01:00 EST, [facility]/pharmacy #[id number], Partial fill upon patient request if the prescription is for a schedule II opioid drug., 152, cm, 06/27... Start Date: 07/24/21 Stop Date: 11/21/21 Status: Ordered ergocalciferol 45762 iu oral capsule 50,000 International_Units, 1, capsule, By Mouth, Every week, # 18 capsule, Refills 0, Tot. Refills0, Maintenance, 06/01/21 13:45:00 EDT, Route to Pharmacy Electronically, [facility]/pharmacy #[id number], Partial fill upon patient request if the prescription is f... Start Date: 06/01/21 Stop Date: 09/29/21 Status: Ordered Escitalopram By Mouth, Daily, 0 Refills, Maintenance, 05/13/19 15:46:32 EDT Start Date: 05/13/19 Status: Ordered Eucerin Plus topical lotion 1 application, Topically, 2 times a day, PRN for dry skin, # 600 mL, 11 Refills, Maintenance, 10/06/20 12:22:00 EST, Lotion, [facility]/pharmacy #[id number], 1 application Topically 2 times a day,PRN:for dry skin, 152, cm, 06/01/20 9:54:00 EDT, Height, 81, kg, 03/... Start Date: 10/06/20 Status: Ordered Eucerin Plus topical lotion 1 application, Topically, 2 times a day, PRN for dry skin, # 600 mL, 1 Refills, Maintenance, 06/01/21 13:51:00 EDT, Lotion, [facility]/pharmacy #[id number], [...] 11 Refills, Maintenance, 05/04/21 14:14:00 EDT, Solution, [facility]/pharmacy #[id number], Partial fill [...] 0 Refills, Maintenance, 01/03/20 13:01:00 EDT, [facility]/pharmacy #[id number], 152, cm, 11/01/19 19:28:00 EDT, [...] 12:17:00 EST, 10/01/21 12:17:00 EST, Solution, [facility]/pharmacy #[id number], 152, cm, 05/04/21 13:50:00 EDT, Height, 85.2, kg, 04/18/21 13:24:00 EDT, Dry... Start Date: 10/01/21 Stop Date: 09/26/22 Status: Ordered loratadine 10 mg oral tablet See Instructions, ASAD LOPES LOS MIRANDA, # 30 tablet, Refills 5, Maintenance, Instructions Replace Required Details, Route to Pharmacy Electronically, [facility], 152, cm, 11/06/20 10:17:00 EDT, Height, 81, kg, 11/01/19 19:28:00 EDT, .. Start Date: 04/03/21 Status: Ordered meclizine 25 mg oral tablet See Instructions, TOME KRYSTEN TABLETA POR VIA ORAL GIBRAN VECES AL JULIAN CUANDO SEA NECESARIO DIZZINESS, #50 tablet, 1 Refills, Acute, [facility] 58062, 152, cm, 11/06/20 10:17:00 EDT, Height, 81, kg, 11/01/19 19:28:00 EDT, Dry Weight Start Date: 12/07/20 Status: Ordered meclizine 25 mg oral tablet 1 tablet = 25 mg, By Mouth, 3 times a day, PRN for dizziness, # 30 tablet, 0 Refills, Maintenance, 04/08/21 22:48:00 EDT, Tablet, [facility]/pharmacy #[id number], [...] 10/26/20 16:17:00 EST, Route to Pharmacy Electronically, [facility]/pharmacy #[id number], 152, cm, 06/01... Start Date: 10/26/20 Stop Date: 10/21/21 Status: Ordered [employer] COVID-19 Vaccine 30 mcg/0.3 mL preservative-free intramuscular [...] mg oral tablet See Instructions, ASAD KRYSTEN VALERIAA DOS JOSIEES AL JULIAN, # 60 tablet, 4 Refills, Maintenance, [facility] [id number], 152, cm, 11/06/20 10:17:00 EDT, Height, 81, [...]
--- OUTSIDE RECORDS SUMMARY | 2023-07-21 13:06 | XMS_ITS | Continuity of Care Document ---
Author Name Unknown Organization [facility] Address [address] [place] [address]- Care Team Providers Care Director Of Tax Services Name Role Phone Renato MORRISON, Milton Loyola Primary Care Physicia n Encounter [facility] R [id number] Date(s): 08/10/21 - 09/22/21 [facility] [address] [place] [address]- Attending Physician: Akhil Eastman MD Admitting Physician: [...] Patient Refuses 1Result Comment: NS DIL LOT [id number] EXP 11/2022 2Result Comment: DILUENT LOT#: [id number] EXP: 11/14 MFG: FRESENSIUS Medications albuterol 0.083% inhalation solution 3 mL = 2.5 mg, Inhalation, Every 6 hours, PRN for wheezing, # 25 each, 11 Refills, Maintenance, 10/06/20 12:25:00 EST, Solution, [facility]/pharmacy #[id number], 152, cm, 06/01/20 9:54:00 EDT, Height, 81, kg, 11/01/19 19:28:00 EDT, Dry Weight Start Date: 10/06/20 Status: Ordered albuterol CFC free 90 mcg/inh inhalation aerosol 2, puffs, Inhalation, Every 4 hours, PRN, # 18 Gm, Refills 11, Tot. Refills 11, Maintenance, 10/06/20 12:25:00 EST, Aerosol, Route to Pharmacy Electronically, [id number], [facility]/pharmacy #[id number], 152, cm, 06/01/20 [...] 12:25:00 EST, [id number], cm, 06/01/20 9:54:00 EDT, Height, 81, kg, 11/01/19 19:28:00 EDT, Dry Weight Start Date: 10/06/20 Status: Ordered atorvastatin 10 mg oral tablet 1 tablet = 10 mg, By Mouth, Daily, # 30 tablet, 5 Refills, Maintenance, 05/05/21 11:03:00 EDT, [facility]/pharmacy #[id number], Partial fill [...] Instructions, # 150 each, Refills 11, Tot. [id number], Maintenance, Use for times a days with [...] tablet, 3 Refills, Maintenance, 07/24/21 15:01:00 EST, [facility]/pharmacy #[id number], Partial fill upon patient request if the prescription is for a schedule II opioid drug., 152, cm, 06/27... Start Date: 07/24/21 Stop Date: 11/21/21 Status: Ordered ergocalciferol 77112 iu oral capsule 50,000 International_Units, 1, capsule, By Mouth, Every week, # 18 capsule, Refills 0, Tot. Refills0, Maintenance, 06/01/21 13:45:00 EDT, Route to Pharmacy Electronically, [facility]/pharmacy #[id number], Partial fill [...] 1 Refills, Maintenance, 06/01/21 13:51:00 EDT, Lotion, [facility]/pharmacy #[id number], [...] 11 Refills, Maintenance, 05/04/21 14:14:00 EDT, Solution, [facility]/pharmacy #[id number], Partial fill [...] 09/26/22 12:17:00 EST, 10/01/21 12:17:00 EST, Solution, [facility]/pharmacy #[id number], 152, cm, 05/04/21 13:50:00 EDT, Height, 85.2, kg, 04/18/21 13:24:00 EDT, Dry... Start Date: 10/01/21 Stop Date: 09/26/22 Status: Ordered loratadine 10 mg oral tablet See Instructions, ASAD BURKETT TOGARCES, # 30 tablet, Refills 5, Maintenance, Instructions Replace Required Details, Route to Pharmacy Electronically, [facility] 54738, 152, cm, 11/06/20 10:17:00 EDT, Height, 81, kg, 11/01/19 19:28:00 EDT, DrBonilla.. Start Date: 04/03/21 Status: Ordered meclizine 25 mg oral tablet 1 tablet = 25 mg, By Mouth, 3 times a day, PRN for dizziness, # 30 tablet, 0 Refills, Maintenance, 04/08/21 22:48:00 EDT, Tablet, [facility]/pharmacy #[id number], [...] 10/26/20 16:17:00 EST, Route to Pharmacy Electronically, [facility]/pharmacy #[id number], 152, cm, 06/01... Start Date: 10/26/20 Stop Date: 10/21/21 Status: Ordered [employer] COVID-19 Vaccine 30 mcg/0.3 mL preservative-free intramuscular [...] 4 Refills, Maintenance, [facility] [id number], 152, cm, 11/06/20 10:17:00 EDT, Height, 81, [...]
--- OUTSIDE RECORDS SUMMARY | 2023-07-21 13:06 | XMS_ITS | Continuity of Care Document ---
Author Name Unknown Organization [facility] Address [address] [place] [address]- Care Team Providers Care Alumni Coordinator Name Role Phone Renato MORRISON, Milton Loyola Primary Care Physicia n En[place] [facility] Date(s): 07/25/21 - 11/08/[address] [facility] [address] [place] [address]- Attending Physician: Simba Guerrero MD Admitting Physician: Simba Guerrero MD Referring Physician: Milton Gross NP Allergies, [...] Patient Refuses 1Result Comment: NS DIL LOT [id number] EXP 11/2022 2Result Comment: DILUENT LOT#: [id number] EXP: 11/14 MFG: FRESENSIUS Medications albuterol 0.083% [...] release tablet See Instructions, ASAD BASHIR TABLETA TOS MARCOS MIRANDA, # 30 tablet, 11 Refills, [id number], 149.86, cm, 08/15/21 11:29:00 EST, Height, 85.7, kg, 07/24/21 14:26:00 EST, Dry Weight Start Date: 10/16/21 Status: Ordered atorvastatin 10 mg oral tablet See Instructions, ASAD BASHIR TABLETA T[employer]on[employer] MIRANDA, # 30 tablet, 5 Refills, [facility], 149.86,cm, 08/15/21 11:29:00 EST, Height, 85.7, kg, 07/24/21 14:26:00 EST, Dry Weight Start Date: 10/29/21 Status: Ordered BD Ultra-Fine pen needles, BERTRAM 4 mm x 32 G BD Ultra-Fine pen needles, BERTRAM 4 mm x 32 G, See Instructions, # 150 each, Refills 11, Tot. [id number], Maintenance, Use for times a days with [...] Mouth, 2 times a day, with food Sinhala label, # 60 tablet, 3 Refills, Maintenance, 07/24/21 15:01:00 EST, [facility]/pharmacy #[id number], Partial fill upon patient request if the prescription is for a schedule II opioid drug., 152, cm, 06/27... Start Date: 07/24/21 Stop Date: 11/21/21 Status: Ordered ergocalciferol 00941 iu oral capsule See Instructions, TOME 1 CAPSULA POR VIA ORAL ONCE WEEKLY, # 4 capsule, Refills 4, Instructions Replace Required Details, Route to Pharmacy Electronically, [facility] ST[facility] 08258, 149.86, cm, 08/15/21 11:29:00 EST, Height, 85.7, kg, 07/24/21 14:26:00 EST, Start Date: 09/24/21 Status: Ordered Escitalopram = 20 mg, By Mouth, Daily, 0 Refills, Maintenance, 05/13/19 15:46:32 EDT Start Date: 05/13/19 Status: Ordered Eucerin Plus topical lotion 1 application, Topically, 2 times a day, PRN for dry skin, # 600 mL, 1 Refills, Maintenance, 06/01/21 13:51:00 EDT, Lotion, [facility]/pharmacy #[id number], Partial [...] Refills, USE TO TEST BLOOD GLUCOSE GIBRAN MERINO JULIAN, 149.86, cm, 08/15/21 11:29:00 EST, Height, [...] Refills, Maintenance, 05/04/21 14:14:00 EDT, Solution, [facility]/pharmacy #[id number], Partial fill upon patient request if the [...] 12:17:00 EST, 10/01/21 12:17:00 EST, Solution, [facility]/pharmacy #[id number], 152, cm, 05/04/21 13:50:00 EDT, Height, 85.2, kg, 04/18/21 13:24:00 EDT, Dry... Start Date: 10/01/21 Stop Date: 09/26/22 Status: Ordered loratadine 10 mg oral tablet See Instructions, ASAD SHAWA TODOS LOS MIRANDA, # 30 tablet, Refills 5, Instructions Replace Required Details, Route to Pharmacy Electronically, [facility] ST[facility] 40228, 149.86, cm, 08/15/21 11:29:00 EST,Height, 85.7, kg, 07/24/21 14:26:00 EST, Dry Weight Start Date: 09/27/21 Status: Ordered meclizine 25 mg oral tablet 1 tablet = 25 mg, By Mouth, 3 times a day, PRN for dizziness, # 30 tablet, 0 Refills, Maintenance, 04/08/21 22:48:00 EDT, Tablet, [facility]/pharmacy #[id number], Partial fill upon patient request if the prescription is for a schedule II opioid drug., 152, cm, ... Start Date: 04/08/21 Status: Ordered [employer] COVID-19 Vaccine 30 mcg/0.3 mL preservative-free intramuscular [...] Replace Required Details, Route to Pharmacy Electronically, [id number], [facility], 149.86, cm, 12... Start Date: 10/15/21 Status: [...] # 60 tablet, 4 Refills, Maintenance, [facility] [id number], 152, cm, 11/06/20 10:17:00 EDT, Height, 81, [...]
--- OUTSIDE RECORDS SUMMARY | 2023-07-21 13:06 | XMS_ITS | Continuity of Care Document ---
Author Name Unknown Organization [facility] Address [address] [place] [address]- Care Team Providers Care Inspector Brake Lining Name Role Phone Milton Gross NP Primary Care Physicia n [place] [facility] [place] 12/12/22 - 01/11/[address] [address]- Allergies, Adverse Reactions, Alerts Substance Reaction Severity Status traMADol tongue numbness--but she fell near [facility] Active Immunizations Given and Recorded Vaccine Date Status Refusal Reason [id number] bivalent booster vax 07/17/22 Given influenza virus [...] Patient Refuses 1Result Comment: NS DIL LOT [id number] EXP 11/2022 2Result Comment: DILUENT LOT#: [id number] EXP: 11/14 MFG: FRESENSIUS Medications albuterol 0.083% inhalation solution 3 mL = 2.5 mg, Inhalation, Every 6 hours, PRN for wheezing, # 25 each, 11 Refills, Maintenance, 05/24/22 14:28:00 EDT, Solution, [facility]/pharmacy #[id number], 149.86, cm, 05/24/22 [...] = 5 mg, By Mouth, Daily, by [employer] records, # 30 tablet, 2 Refills, Maintenance, 12/06/22 16:52:00 EDT, Tablet, [facility]/pharmacy #[id number], Partial fill upon patient request if the prescription is for a schedule II opioid drug., 149.8, cm, 07/22/22 9:... Start Date: 12/06/22 Stop Date: 03/06/23 Status: Ordered Aspirin Low Dose 81 mg oral delayed release tablet See Instructions, ASAD BASHIR TABLETA TOLOMAS MIRANDA by [employer] records continue, # 30 tablet, 11 Refills, 07/04/22 11:40:00 EST, [facility]/pharmacy #[id number], 149.8, cm, 07/04/22 11:20:00 EST, [...] x 32 G BD Ultra-Fine pen needles, BERTARM 4 mm x 32 G, See Instructions, # 150 each, Refills 11, Tot. [id number], Maintenance, Use for times a days with [...] Compound Start Date: 07/25/21 Status: Ordered ergocalciferol 85048 iu oral capsule 1, capsule, By Mouth, Every week, # 4 capsule, Refills 4, Maintenance, 10/22/22 15:42:00 EST, [facility] Electronically, [facility] 410[facility], 149.8, cm, 07/22/22 9:38:00 EST, Height, 83.3, [...] sites. stop novolog due insurance issues. in saudi arabian, # 15 mL, 11 Refills, Hard Stop 08/07/23 12:49:00 EST, 08/12/22 12:49:00 EST,... Start Date: 08/12/22 Stop Date: 08/07/23 Status: Ordered Insulin Lispro Scot KwikPen 100 units/mL injectable solution = 15 units, Subcutaneous Infusion, 3 times a day before meals, with breakfast and lunch rotate injection sites. stop novolog due insurance issues. in saudi arabian, # 15 mL, 11 Refills, Maintenance, 08/07/23 12:49:00 EST, [facility]/pharmacy #[id number], Partial fill... Start Date: 08/07/23 [...] 09/10/25 12:17:00 EST, 09/15/24 12:17:00 EST, Solution, [facility]/pharmacy #[id number], 149.8, cm, 07/22/22 9:38:00 EST, [...] Replace Required Details, Route to Pharmacy Electronically, [id number]... Start Date: 03/28/22 Status: Ordered Pulse Oximeter [...] 60 tablet, 4 Refills, Maintenance, [facility] [id number], 152, cm, 11/06/20 10:17:00 EDT, Height, 81, kg, 11/01/19 19:28:00 EDT, Dry Weight Start Date: 03/07/21 Status: Ordered Zithromax 250 mg oral tablet 1 pack/packet, By Mouth, Once, # 6 tablet, 0 Refills, Soft Stop, 01/05/23 23:08:00 EDT, Tablet, [facility]/pharmacy #[id number], Partial fill [...] Team Personnel Name: Javid AGUILAR, Jesika Position: [facility] RN Member Role: Primary Care Nurse Name: Milton Gross NP Position: [facility] PCO Associate Professional Member Role: PCP Address: Address: [address] [place] [address]- Care Team Related Persons Name: YASMIN FISHER Address: home [address] [place] [address]
--- OUTSIDE RECORDS SUMMARY | 2023-07-21 13:06 | XMS_ITS | Continuity of Care Document ---
Author Name Unknown Organization [facility] Address Unknown Care Team Providers Care Hvac Engineering Technician Name Role Phone Renato MORRISON, Milton Loyola Primary Care Physicia n [place] [facility] [place] [facility] Attending Physician: Carson DINERO, Duc Mann Referring Physician: Milton Gross NP Allergies, Adverse [...] Patient Refuses 1Result Comment: NS DIL LOT [id number] EXP 11/2022 2Result Comment: DILUENT LOT#: [id number] EXP: 11/14 MFG: FRESENSIUS Medications acetaminophen 500 mg oral tablet 1 tablet = 500 mg, By Mouth, 3 times a day, for 30 days, take alternating with diclofenac. Anguillan label, # 90 tablet, 0 Refills, Acute 08/23/21 15:01:00 EST, 07/24/21 15:01:00 EST, Tablet, [facility]/pharmacy #[id number], Partial fill upon patient request if the... Start Date: 07/24/21 Stop Date: 08/23/21 Status: Ordered albuterol 0.083% inhalation solution 3 mL = 2.5 mg, Inhalation, Every 6 hours, PRN for wheezing, # 25 each, 11 Refills, Maintenance, 10/06/20 12:25:00 EST, Solution, [facility]/pharmacy #[id number], 152, cm, 06/01/20 9:54:00 EDT, Height, 81, kg, 11/01/19 19:28:00 EDT, Dry Weight Start Date: 10/06/20 Status: Ordered albuterol CFC free 90 mcg/inh inhalation aerosol 2, puffs, Inhalation, Every 4 hours, PRN, # 18 Gm, Refills 11, Tot. Refills 11, Maintenance, 10/06/20 12:25:00 EST, Aerosol, Route to Pharmacy Electronically, [id number], [facility]/pharmacy #[id number], 152, cm, 06/01/20 9:54:00 EDT, [...] 10/06/20 12:25:00 EST, Route to Pharmacy Electronically, [facility]/pharmacy #[id number], 152, cm, 06/01/20 9:54:00 EDT, Height, 81, kg, 11/01/19 19:28:00 EDT, Dry Weight Start Date: 10/06/20 Status: Ordered atorvastatin 10 mg oral tablet 1 tablet = 10 mg, By Mouth, Daily, # 30 tablet, 5 Refills, Maintenance, 05/05/21 11:03:00 EDT, [facility]/pharmacy #[id number], Partial fill upon patient request if the prescription is for a schedule II opioid drug., 152, cm, 04/18/21 13:24:00 EDT, Height, 85.2, k... Start Date: 05/05/21 Stop Date: 11/01/21 Status: Ordered BD Ultra-Fine pen needles, BERTRAM 4 mm x 32 G BD Ultra-Fine pen needles, BERTRAM 4 mm x 32 G, See Instructions, # 150 each, Refills 11, Tot. [id number], Maintenance, Use for times a days with insulin. DM E119, 10/06/20 12:18:00 EST, Compound, 152, cm, 06/01/20 9:54:00 EDT, Height, 81, kg, 11/01/19 1... Start Date: 10/06/20 Status: Ordered BENGAY Arthritis topical cream See Instructions, rub into areas of pain and muscle tightness; instructions in Anguillan, # 1 each, 2Refills, Maintenance, 12/14/20 11:39:00 EDT, [facility]/pharmacy #[id number], Partial fill upon patient request [...] 11/28/20 10:24:00 EDT, Route to Pharmacy Electronically, [facility]/pharmacy #[id number], 152, cm, 06/01/20 9:54:00 EDT, [...] Mouth, 2 times a day, with food Anguillan label, # 60 tablet, 3 Refills, Maintenance, 07/24/21 15:01:00 EST, [facility]/pharmacy #[id number], Partial fill upon patient request if the prescription is for a schedule II opioid drug., 152, cm, 3... Start Date: 07/24/21 Stop Date: 11/21/21 Status: Ordered ergocalciferol 45286 iu oral capsule 50,000 International_Units, 1, capsule, By Mouth, Every week, # 18 capsule, Refills 0, Tot. Refills0, Maintenance, 06/01/21 13:45:00 EDT, Route to Pharmacy Electronically, [facility]/pharmacy #[id number], Partial fill upon patient request if the prescription is f... Start Date: 06/01/21 Stop Date: 09/29/21 Status: Ordered Escitalopram By Mouth, Daily, 0 Refills, Maintenance, 05/13/19 15:46:32 EDT Start Date: 05/13/19 Status: Ordered Eucerin Plus topical lotion 1 application, Topically, 2 times a day, PRN for dry skin, # 600 mL, 11 Refills, Maintenance, 10/06/20 12:22:00 EST, Lotion, [facility]/pharmacy #[id number], 1 application Topically 2 times [...] 11 Refills, Maintenance, 05/04/21 14:14:00 EDT, Solution, [facility]/pharmacy #[id number], Partial fill upon patient request if the prescription is for a schedule II opio... Start Date: 05/04/21 Status: Ordered HumaLOG KwikPen 100 units/mL injectable solution = 15 units, Subcutaneous Infusion, 3 times a day before meals, Dx E11.9. D/C admelog same dose 15 units . give kwik pen, # 15 mL, 11 Refills, Maintenance, 10/06/20 12:20:00 EST, [facility]/pharmacy #[id number], 152, cm, 06/01/20 9:54:00 EDT, Height, 81, kg, ... Start Date: 10/06/20 Stop Date: 10/01/21 Status: Ordered Imitrex 50 mg oral tablet See Instructions, 1 tablet By Mouth at onset of headache. May repeat once in 2 hours. Not > 4/ week., # 9 tablet, 0 Refills, Maintenance, 01/03/20 13:01:00 EDT, [facility]/pharmacy #[id number], 152, cm, 11/01/19 19:28:00 EDT, [...] 09/26/22 12:17:00 EST, 10/01/21 12:17:00 EST, Solution, [facility]/pharmacy #[id number], 152, cm, 05/04/21 13:50:00 EDT, Height, 85.2, kg, 04/18/21 13:24:00 EDT, Dry... Start Date: 10/01/21 Stop Date: 09/26/22 Status: Ordered loratadine 10 mg oral tablet See Instructions, ASAD MIRANDA, # 30 tablet, Refills 5, Maintenance, Instructions Replace Required Details, Route to Pharmacy Electronically, [facility] STORE [id number], 152, cm, 11/06/20 10:17:00 EDT, Height, 81, kg, 11/01/19 19:28:00 EDT, DrBonilla.. Start Date: 04/03/21 Status: Ordered meclizine 25 mg oral tablet See Instructions, TOME KRYSTEN TABLETA POR VIA ORAL GIBRAN VECES AL JULIAN CUANDO SEA NECESARIO DIZZINESS, #50 tablet, 1 Refills, Acute, [facility] STORE [id number], 152, cm, 11/06/20 10:17:00 EDT, Height, 81, kg, 11/01/19 19:28:00 EDT, Dry Weight Start Date: 12/07/20 Status: Ordered meclizine 25 mg oral tablet 1 tablet = 25 mg, By Mouth, 3 times a day, PRN for dizziness, # 30 tablet, 0 Refills, Maintenance, 04/08/21 22:48:00 EDT, Tablet, [facility]/pharmacy #[id number], Partial fill upon patient request [...] 10/26/20 16:17:00 EST, Route to Pharmacy Electronically, [facility]/pharmacy #[id number], 152, cm, 06/01... Start Date: 10/26/20 Stop Date: 10/21/21 Status: Ordered Videostrip COVID-19 Vaccine 30 mcg/0.3 mL preservative-free intramuscular [...] JULIAN, # 60 tablet, 4 Refills, Maintenance, [facility] [id number], 152, cm, 11/06/20 10:17:00 EDT, Height, 81, [...] oldest [Reference Range]: 1 Height 152 cm (07/24/21 2:26 PM) Weight 85.7 kg (07/24/21 2:26 PM) Oxygen Saturation [94-100 %] 96 % (07/24/21 2:26 PM) Pulse Rate [55-90 bpm] 78 bpm (07/24/21 2:26 PM) Body Mass Index [18.5-24.99] 37.09 *>HHI* (07/24/21 2:26 PM) Blood Pressure [90-138/55-84 mm Hg] 135/ 80mm Hg (07/24/21 2:26 PM) Temperature [96.8-100.4 DegF] 96.8 DegF (07/24/21 2:26 PM) Mode of Delivery (Oxygen) Room air (07/24/21 2:26 PM) Blood pressure sites Arm, left (07/24/21 2:26 PM) Temperature Route Temporal (07/24/21 2:26 PM) Dry Weight 85.7 kg (07/24/21 2:26 PM) Social History Social History Type Response Smoking Status Never smoker; Tobacc o user in household: No; Type: Cigarettes entered on: 11/07/14 Sex
--- OUTSIDE RECORDS SUMMARY | 2023-07-21 13:06 | XMS_ITS | Continuity of Care Document ---
Author Name Unknown Organization [facility] Address [address] [place] [address]- Care Team Providers Care Data Developer Name Role Phone Renato MORRISON, Milton Loyola Primary Care Physicia n Encounter [facility] [place] Date(s): 12/03/21 - 01/02/[address] [address]- Attending Physician: Jimenez Grant Admitting Physician: Jimenez Grant Referring Physician: AdmJimenez vieira Allergies, Adverse Reactions, Alerts Substance Reaction Severity [...] Patient Refuses 1Result Comment: NS DIL LOT [id number] EXP 11/2022 2Result Comment: DILUENT LOT#: [id number] EXP: 11/14 MFG: FRESENSIUS Medications albuterol 0.083% [...] release tablet See Instructions, ASAD BASHIR TABLETA [employer] Sovi MIRANDA, # 30 tablet, 11 Refills, [facility] 86147, 149.86, cm, 08/15/21 11:29:00 EST, Height, 85.7, kg, 07/24/21 14:26:00 EST, Dry Weight Start Date: 10/16/21 Status: Ordered atorvastatin 10 mg oral tablet See Instructions, PJE KRYSTEN TABLETA [employer] Sovi MIRANDA, # 30 tablet, 5 Refills, [facility], 149.86,cm, 08/15/21 11:29:00 EST, Height, 85.7, kg, 07/24/21 14:26:00 EST, Dry Weight Start Date: 10/29/21 Status: Ordered BD Ultra-Fine pen needles, BERTRAM 4 mm x 32 G BD Ultra-Fine pen needles, BERTRAM 4 mm x 32 G, See Instructions, # 150 each, Refills 11, Tot. [id number], Maintenance, Use for times a days with [...] tablet, Refills 1, Route to Pharmacy Electronically, [facility]160, 149.86, cm, 08/15/21 11:29:00 EST, Height, 85.7, [...] Mouth, 2 times a day, with food Montenegrin label, # 60 tablet, 3 Refills, Maintenance, 07/24/21 15:01:00 EST, [facility]/pharmacy #[id number], Partial fill upon patient request if the prescription is for a schedule II opioid drug., 152, cm, 06/27... Start Date: 07/24/21 Stop Date: 11/21/21 Status: Ordered ergocalciferol 96452 iu oral capsule See Instructions, TOME 1 CAPSULA POR VIA ORAL ONCE WEEKLY, # 4 capsule, Refills 4, Instructions Replace Required Details, Route to Pharmacy Electronically, [facility]856, 149.86, cm, 08/15/21 11:29:00 EST, Height, 85.7, kg, 07/24/21 14:26:00 EST, Start Date: 09/24/21 Status: Ordered Escitalopram = 20 mg, By Mouth, Daily, 0 Refills, Maintenance, 05/13/19 15:46:32 EDT Start Date: 05/13/19 Status: Ordered Eucerin Plus topical lotion 1 application, Topically, 2 times a day, PRN for dry skin, # 600 mL, 1 Refills, Maintenance, 06/01/21 13:51:00 EDT, Lotion, [id number], Partial fill upon patient request if the [...] # 15 Unknown, 5 Refills, [facility], 149.86, cm, 08/15/21 11:29:00 EST, Height, 85.7, kg, 07/24/21 14:26:00 EST, Dry Weight Start Date: 11/13/21 Status: Ordered Imitrex 50 mg oral tablet See Instructions, 1 tablet By Mouth at onset of headache. May repeat once in 2 hours. Not > 4/ week., # 9 tablet, 0 Refills, Maintenance, 01/03/20 13:01:00 EDT, [facility]/pharmacy #[id number], 152, cm, 11/01/19 19:28:00 [...] 09/26/22 12:17:00 EST, 10/01/21 12:17:00 EST, Solution, [facility]/pharmacy #[id number], 152, cm, 05/04/21 13:50:00 EDT, Height, 85.2, kg, 04/18/21 13:24:00 EDT, Dry... Start Date: 10/01/21 Stop Date: 09/26/22 Status: Ordered loratadine 10 mg oral tablet See Instructions, ASAD BURKETT TODOS LOS MIRANDA, # 30 tablet, Refills 5, Instructions Replace Required Details, Route to Pharmacy Electronically, [facility], 149.86, cm, 08/15/21 11:29:00 EST,Height, 85.7, kg, 07/24/21 14:26:00 EST, Dry Weight Start Date: 09/27/21 Status: Ordered meclizine 25 mg oral tablet 1 tablet = 25 mg, By Mouth, 3 times a day, PRN for dizziness, # 30 tablet, 0 Refills, Maintenance, 04/08/21 22:48:00 EDT, Tablet, [facility]/pharmacy #[id number], Partial fill upon patient request if the prescription is for a schedule II opioid drug., 152, cm, 03/... Start Date: 04/08/21 Status: Ordered FlyReadyJet COVID-19 Vaccine 30 mcg/0.3 mL preservative-free intramuscular [...] Replace Required Details, Route to Pharmacy Electronically, [id number], [facility] STORE 22470, 149.86, cm, 12... Start Date: 10/15/21 Status: [...] JULIAN, # 60 tablet, 4 Refills, Maintenance, [facility] [id number], 152, cm, 11/06/20 10:17:00 EDT, Height, 81, [...]
--- OUTSIDE RECORDS SUMMARY | 2023-07-21 13:07 | XMS_ITS | Continuity of Care Document ---
Author Name Unknown Organization [facility] Address [address] [facility], [address] Floor, [address] [place] [address]- Care Team Providers Care Pipeline Controller Name Role Phone Renato PROJECT MANAGEMENT, Milton Loyola Primary Care Physicia n Encounter [facility] [place] [id number] Date(s): 03/11/22 - 05/02/22 [facility] [address], [address], [address] [place] [address]- Attending Physician: Todd Brush MD Admitting Physician: [...] Patient Refuses 1Result Comment: NS DIL LOT [id number] EXP 11/2022 2Result Comment: DILUENT LOT#: [id number] EXP: 11/14 MFG: FRESENSIUS Medications albuterol 0.083% [...] 30 tablet, 11 Refills, 03/28/22 11:20:00 EDT, [facility]/pharmacy #[id number], 149.86, cm, 03/28/22 10:52:00 EDT, Height, 85.7, kg, 07/24/21 14:26:00 EST, Dry Weight Start Date: 03/28/22 Status: Ordered atorvastatin 10 mg oral tablet See Instructions, PJSole KRYSTEN TABLETA CONSTANCEKal MARCOS MIARNDA, # 30 tablet, 11 Refills, 03/28/22 11:20:00 EDT, [facility]/pharmacy #[id number], 149.86, cm, 03/28/22 10:52:00 EDT, Height, 85.7, kg, 07/24/21 14:26:00 EST, Dry Weight Start Date: 03/28/22 Status: Ordered BD Ultra-Fine pen needles, BERTRAM 4 mm x 32 G BD Ultra-Fine pen needles, BERTRAM 4 mm x 32 G, See Instructions, # 150 each, Refills 11, Tot. [id number], Maintenance, Use for times a days with [...] tablet, Refills 1, Route to Pharmacy Electronically, [facility] 18147, 149.86, cm, 08/15/21 11:29:00 EST, Height, 85.7, [...] Mouth, 2 times a day, with food Romanian label, # 60 tablet, 3 Refills, Maintenance, 07/24/21 15:01:00 EST, [facility]/pharmacy #[id number], Partial fill upon patient request if the prescription is for a schedule II opioid drug., 152, cm, 06/27... Start Date: 07/24/21 Stop Date: 11/21/21 Status: Ordered ergocalciferol 00664 iu oral capsule See Instructions, TOME 1 CAPSULA POR VIA ORAL ONCE WEEKLY, # 4 capsule, Refills 4, Instructions Replace Required Details, Route to Pharmacy Electronically, [facility] 42447, 149.86, cm, 08/15/21 11:29:00 EST, Height, 85.7, kg, 07/24/21 14:26:00 EST, Start Date: 09/24/21 Status: Ordered Escitalopram = 20 mg, By Mouth, Daily, 0 Refills, Maintenance, 05/13/19 15:46:32 EDT Start Date: 05/13/19 Status: Ordered Eucerin Plus topical lotion 1 application, Topically, 2 times a day, PRN for dry skin, # 600 mL, 1 Refills, Maintenance, 06/01/21 13:51:00 EDT, Lotion, [id number], Partial fill upon patient request if the [...] LAS COMIDAS, # 15 Unknown, 5 Refills, [facility] STORE 25008, 149.86, cm, 08/15/21 11:29:00 EST, Height, 85.7, [...] 09/21/23 12:17:00 EST, 09/26/22 12:17:00 EST, Solution, [facility]/pharmacy #4471, 149.86, cm, 03/28/22 10:52:00 EDT, Height, 85.7, kg, 07/24/21 14:26:00 EST,... Start Date: 09/26/22 Stop Date: 09/21/23 Status: Ordered Lantus Solostar Pen 100 units/mL subcutaneous solution = 40 units, Subcutaneous Injection, Daily, for 30 days, DM E 11.9., # 12 mL, 11 Refills, Hard Stop 09/26/22 12:17:00 EST, 10/01/21 12:17:00 EST, Solution, [facility]/pharmacy #[id number], 152, cm, 05/04/21 13:50:00 EDT, Height, 85.2, kg, 04/18/21 13:24:00 EDT, Dry... Start Date: 10/01/21 Stop Date: 09/26/22 Status: Ordered loratadine 10 mg oral tablet See Instructions, TOME KRYSTEN TABLETA TODOS LOS MIRANDA, # 30 tablet, Refills 5, Tot. Refills 5, 03/28/2211:21:00 EDT, Instructions Replace Required Details, Route to Pharmacy Electronically, [facility]/pharmacy#4471, 149.86, cm, 03/28/22 10:52:00 EDT, Height, 8... Start Date: 03/28/22 Status: Ordered meclizine 25 mg oral tablet 1 tablet = 25 mg, By Mouth, 3 times a day, PRN for dizziness, # 30 tablet, 0 Refills, Maintenance, 04/08/21 22:48:00 EDT, Tablet, [facility]/pharmacy #[id number], Partial fill upon patient request if the prescription is for a schedule II opioid drug., 152, cm, ... Start Date: 04/08/21 Status: Ordered GoCoin COVID-19 Vaccine 30 mcg/0.3 mL preservative-free intramuscular [...] Replace Required Details, Route to Pharmacy Electronically, [id number]... Start Date: 03/28/22 Status: Ordered raised toilt [...] Refills, Maintenance, [id number], 152, cm, 11/06/20 10:17:00 EDT, Height, 81, [...] Team Personnel Name: Milton Gross NP Address: [address] [place] [address]
--- OUTSIDE RECORDS SUMMARY | 2023-07-21 13:07 | XMS_ITS | Continuity of Care Document ---
Author Name Unknown Organization [facility] Address [address] [place] [address]- Care Team Providers Care Medical Resident Name Role Phone Renato MORRISON, Milton Loyola Primary Care Physicia n [place] [facility] [place] [facility] [id number] Date(s): 06/01/20 - 07/01/[address] [address]- Attending Physician: Jimenez Grant Admitting Physician: Jimenez [...] Stop 10/16/20 12:40:00 EST, 10/22/19 12:40:00 EST, [facility]/pharmacy #447... Start Date: 10/22/19 Stop Date: 10/16/20 Status: Ordered albuterol 0.083% inhalation solution 3 mL = 2.5 mg, Inhalation, Every 6 hours, PRN for wheezing, # 25 each, 11 Refills, Maintenance, 06/01/20 10:23:00 EDT, Solution, [facility]/pharmacy #[id number], 152, cm, 06/01/20 9:54:00 EDT, Height, 81, kg, 11/01/19 19:28:00 EDT, Dry Weight Start Date: 06/01/20 Status: Ordered albuterol CFC free 90 mcg/inh inhalation aerosol 2, puffs, Inhalation, Every 4 hours, PRN, # 18 Gm, Refills 11, Tot. Refills 11, Maintenance, 06/01/20 10:23:00 EDT, Aerosol, Route to Pharmacy Electronically, [id number], [facility]/pharmacy #[id number], 152, cm, 06/01/20 [...] 06/01/20 10:23:00 EDT, Route to Pharmacy Electronically, [facility]/pharmacy #[id number], 152, cm, 06/01/20 9:54:00 EDT, Height, 81, kg, 11/01/19 19:28:00 EDT, Dry Weight Start Date: 06/01/20 Status: Ordered BD Ultra-Fine pen needles, BERTRAM 4 mm x 32 G BD Ultra-Fine pen needles, BERTRAM 4 mm x 32 G, See Instructions, # 150 each, Refills 11, Tot. [id number], Maintenance, Use for times a days with [...] 06/01/20 10:24:00 EDT, Route to Pharmacy Electronically, [facility]/pharmacy #[id number], 152, cm, 06/01/20 9:54:00 EDT, Height, 81, kg, 10/31... Start Date: 06/01/20 Stop Date: 11/28/20 Status: Ordered CPAP Machine See Instructions, # 1 each, Maintenance, AutoCPAP 8 , 09/29/18 14:12:26 EST, Compound Start Date: 09/29/18 Status: Ordered Escitalopram By Mouth, Daily, 0 Refills, Maintenance, 05/13/19 15:46:32 EDT Start Date: 05/13/19 Status: Ordered Eucerin Plus topical lotion 1 application, Topically, 2 times a day, PRN for dry skin, # 354 mL, 11 Refills, Maintenance, 06/01/20 10:19:00 EDT, Lotion, [facility]/pharmacy #[id number], 1 application Topically 2 times a day,PRN:for dry skin, 152, cm, 06/01/20 9:54:00 EDT, Height, 81, kg, ... Start Date: 06/01/20 Status: Ordered Freestyle Lancets [...] 01/18/20 9:31:00 EDT, Route to Pharmacy Electronically, [facility]/pharmacy #[id number], 152, cm, 11/01/19 [...] 11/01/19 16:17:00 EDT, Route to Pharmacy Electronically, [facility]/pharmacy #[id number], 152, cm, 10/22... Start Date: 11/01/19 Stop Date: 10/26/20 Status: Ordered riboflavin 100 mg oral tablet 1 tablet = 100 mg, By Mouth, 2 times a day, # 60 tablet, 4 Refills, Maintenance, 01/03/20 13:00:00 EDT, [facility]/pharmacy #[id number], 152, cm, 11/01/19 19:28:00 EDT, Height, 81, kg, 11/01/19 19:28:00 EDT, Dry Weight Start Date: 01/03/20 Stop Date: 06/01/20 Status: Ordered sulindac 150 mg oral tablet See Instructions, TOME KRYSTEN TABLETA POR VIA ORAL DOS VECES AL JULIAN CUANDO SEA NECESARIO, # 60 tablet,2 Refills, 06/01/20 10:19:00 EDT, [facility]/pharmacy #[id number], 152, cm, 06/01/20 [...]
--- OUTSIDE RECORDS SUMMARY | 2023-07-21 13:07 | XMS_ITS | Continuity of Care Document ---
Author Name Unknown Organization [facility] Address [address] [place] [address]- Care Team Providers Care Utility Arborist Name Role Phone Milton Gross NP Primary Care Physicia n [place] [facility] [place] 07/22[place]22 - 08/21/22 [facility] [address] [place], [place] [address] Attending Physician: Jimenez Grant Admitting Physician: Jimenez Grant Referring Physician: AdmtrJimenez Allergies, Adverse Reactions, Alerts Substance Reaction Severity Status traMADol tongue numbness--but she fell near loc Active Immunizations Given and Recorded Vaccine Date Status Refusal Reason [id number] bivalent booster vax 07/17/22 Given influenza virus [...] Patient Refuses 1Result Comment: NS DIL LOT [id number] EXP 11/2022 2Result Comment: DILUENT LOT#: [id number] EXP: 11/14 MFG: FRESENSIUS Medications acetaminophen 325 mg oral capsule 1 capsule = 325 mg, By Mouth, Every 4 hours, PRN as needed for fever, not to exceed 4000 mg/day Print in Burkinan, # 90 capsule, 1 Refills, Acute 09/20/22 11:47:00 EST, 07/17/22 11:47:00 EST, Capsule,[facility]/pharmacy #[id number], Partial fill upon patient requ... [...] = 5 mg, By Mouth, Daily, by [employer] records, # 30 tablet, 3 Refills, Maintenance, 07/04/22 11:38:00 EST, Tablet, [facility]/pharmacy #[id number], Partial fill upon patient request if the prescription is for a schedule II opioid drug., 149.8, cm, 07/04/22 11... Start Date: 07/04/22 Stop Date: 11/01/22 Status: Ordered Aspirin Low Dose 81 mg oral delayed release tablet See Instructions, ASAD BURKETT TODOS LOS MIRANDA by [employer] records continue, # 30 tablet, 11 Refills, [...] Instructions, # 150 each, Refills 11, Tot. [id number], Maintenance, Use for times a days with [...] Compound Start Date: 07/25/21 Status: Ordered ergocalciferol 12651 iu oral capsule See Instructions, TOME 1 CAPSULA POR VIA ORAL ONCE WEEKLY, # 4 capsule, Refills 4, Tot. Refills 4, 05/24/22 14:29:00 EDT, Instructions Replace Required Details, Route to Pharmacy Electronically, [facility]/pharmacy #[id number], 149.86, cm, 05/24/22 13:53:00 EDT, H... Start Date: 05/24/22 Status: Ordered Escitalopram = 20 mg, By Mouth, Daily, 0 Refills, Maintenance, 05/13/19 15:46:32 EDT Start Date: 05/13/19 Status: Ordered Eucerin Plus topical lotion 1 application, Topically, 2 times a day, PRN for dry skin, # 600 mL, 1 Refills, Maintenance, 05/24/22 14:28:00 EDT, Lotion, [facility]/pharmacy #[id number], Partial [...] sites. stop novolog due insurance issues. in macedonian, # 15 mL, 11 Refills, Maintenance, 08/12/22 12:49:00 EST, [facility]/pharmacy #[id number], Partial fill... Start Date: 08/12/22 [...] 09/15/24 12:17:00 EST, 09/21/23 12:17:00 EST, Solution, [facility]/pharmacy #[id number], 149.86, cm, 05/24/22 13:53:00 EDT, Height, 85.7, kg, 07/24/21 14:26:00 EST,... Start Date: 09/21/23 Stop Date: 09/15/24 Status: Ordered loratadine 10 mg oral tablet See Instructions, ASAD BASHIR TABLETA TODOS [place]AN[place], # 30 tablet, Refills 5, Tot. Refills 5, 05/24/2214:42:00 EDT, Instructions Replace Required Details, Route to Pharmacy Electronically, [facility]/pharmacy#[id number], 149.86, cm, 05/24/22 13:53:00 EDT, Height, 8... Start Date: 05/24/22 Status: Ordered meclizine 25 mg oral tablet 1 tablet = 25 mg, By Mouth, 3 times a day, PRN for dizziness, # 30 tablet, 0 Refills, Maintenance, 05/31/22 13:26:00 EDT, Tablet, [facility]/pharmacy #[id number], Partial [...] 05/31/22 13:26:00 EDT, Route to Pharmacy Electronically, [facility]/pharmacy #[id number], 149.86, cm, 10... Start Date: [...] Replace Required Details, Route to Pharmacy Electronically, [id number]... Start Date: 03/28/22 Status: Ordered Pulse Oximeter [...] tablet, 4 Refills, Maintenance, [facility] [id number], 152, cm, 11/06/20 10:17:00 EDT, Height, 81, [...] Team Personnel Name: Jesika Hua RN Position: [facility] RN Member Role: Primary Care Nurse Name: Milton Gross NP Position: [facility] PCO Associate Professional Member Role: PCP Address: Address: [address] [place] [address]- Care Team Related Persons Name: YASMIN FISHER Address: home [address] [address]
--- OUTSIDE RECORDS SUMMARY | 2023-07-21 13:07 | XMS_ITS | Continuity of Care Document ---
Author Name Unknown Organization [facility] Address [address] [place] [address]- Care Team Providers Care Lead Qa Analyst Name Role Phone Milton Gross NP Primary Care Physicia n [place] [facility] [place]19 [facility] [address] [place] [address]- [facility] Attending Physician: Jimenez Grant Admitting Physician: Jimenez [...] 18:58:54 EDT, Aerosol, Route to Pharmacy Electronically, [id number], [facility]/pharmacy #[id number], Compound Start Date: 11/02/18 Status: [...] 11/02/18 18:58:53 EDT, Route to Pharmacy Electronically, [id number], [facility]/pharmacy #[id number] Start Date: 11/02/18 Status: Ordered BD Ultra-Fine pen needles, BERTRAM 4 mm x 32 G BD Ultra-Fine pen needles, BERTRAM 4 mm x 32 G, See Instructions, # 150 each, Refills 11, Tot. [id number], Maintenance, Use for times a days with [...] 11/02/18 18:58:54 EDT, Route to Pharmacy Electronically, [id number], [facility]/pharmacy #[id number] Start Date: 11/02/18 Stop Date: [...] 11/01/19 16:17:00 EDT, Route to Pharmacy Electronically, [facility]/pharmacy #[id number], 152, cm, 10/22/19 15:02:00 EST, [...] Stop 01/20/20 12:40:00 EDT, 10/22/19 12:40:00 EST, [facility]/pharmacy #[id number], 152, c... Start Date: 10/22/19 [...]
--- OUTSIDE RECORDS SUMMARY | 2023-07-21 13:07 | XMS_ITS | Continuity of Care Document ---
Author Name Unknown Organization [facility] Address [address] [place] [address]- Care Team Providers Care Nonprofit Fundraiser Name Role Phone Renato MORRISON, Milton Loyola Primary Care Physicia n Encounter [facility] [place] Date(s): 12/06/22 - 04/05/[address] [facility] [address] [address]- Attending Physician: Joselin Guerrero MD Admitting Physician: Joselin Guerrero MD Referring Physician: Milton Gross NP Allergies, Adverse Reactions, Alerts Substance Reaction Severity Status traMADol tongue numbness--but she fell near loc Active Immunizations Given and Recorded Vaccine Date Status Refusal Reason [id number] bivalent booster vax 07/17/22 Given influenza virus [...] Patient Refuses 1Result Comment: NS DIL LOT [id number] EXP 11/2022 2Result Comment: DILUENT LOT#: [id number] EXP: 11/14 MFG: FRESENSIUS Medications albuterol 0.083% inhalation solution 3 mL = 2.5 mg, Inhalation, Every 6 hours, PRN for wheezing, # 25 each, 11 Refills, Maintenance, 01/17/23 13:45:00 EDT, Solution, [facility]/pharmacy #[id number], 145, cm, 01/17/23 13:04:00 EDT, Height, [...] = 5 mg, By Mouth, Daily, by [employer] records. Follow speciality, # 30 tablet, 2 Refills, Maintenance, 03/06/23 16:52:00 EDT, Tablet, [facility]/pharmacy #[id number], Partial fill upon patient request if theprescription is for a schedule II opioid drug., 145... Start Date: 03/06/23 Stop Date: 06/04/23 Status: Ordered Aspirin Low Dose 81 mg oral delayed release tablet See Instructions, ASAD BASHIR TABLETA MARIANNE MIRANDA by [facility] records continue, # 30 tablet, 11 Refills, [...] x 32 G BD Ultra-Fine pen needles, EBRTRAM 4 mm x 32 G, See Instructions, # 150 each, Refills 11, Tot. [id number], Maintenance, Use for times a days with [...] Compound Start Date: 07/25/21 Status: Ordered ergocalciferol 56936 iu oral capsule 1, capsule, By Mouth, Every week, # 4 capsule, Refills 4, Maintenance, 10/22/22 15:42:00 EST, [facility] Electron[facility], [id number], 149.8, cm, 07/22/22 9:38:00 EST, Height, 83.3, kg, 06/14/22 18:50:00 EDT, Dry Weight Start Date: 10/22/22 Status: Ordered Escitalopram = 20 mg, By Mouth, Daily, 0 Refills, Maintenance, 05/13/19 15:46:32 EDT Start Date: 05/13/19 Status: Ordered Eucerin Plus topical lotion 1 application, Topically, 2 times a day, PRN for dry skin, # 600 mL, 11 Refills, Maintenance, 01/17/23 13:42:00 EDT, Lotion, [facility]/pharmacy #[id number], Partial fill upon patient request if the prescription is for a schedule II opioid drug., 1 application Top... Start Date: 01/17/23 Stop Date: 01/12/24 Status: Ordered Eucerin Plus topical lotion 1 application, Topically, 2 times a day, PRN for dry skin, # 600 mL, 1 Refills, Maintenance, 05/24/22 14:28:00 EDT, Lotion, [facility]/pharmacy #[id number], Partial fill upon [...] sites. stop novolog due insurance issues. in vietnamese, # 15 mL, 11 Refills, Hard Stop 08/07/23 12:49:00 EST, 08/12/22 12:49:00 EST,... Start Date: 08/12/22 Stop Date: 08/07/23 Status: Ordered Insulin Lispro Scot KwikPen 100 units/mL injectable solution = 15 units, Subcutaneous Infusion, 3 times a day before meals, with breakfast and lunch rotate injection sites. stop novolog due insurance issues. in vietnamese, # 15 mL, 11 Refills, Maintenance, 08/07/23 [...] Replace Required Details, Route to Pharmacy Electronically, [facility]/pharmacy#[id number], 149.86, cm, 05/24/22 13:53:00 EDT, Height, 8... Start Date: 05/24/22 Status: Ordered meclizine 25 mg oral tablet 1 tablet = 25 mg, By Mouth, 3 times a day, PRN for dizziness, # 30 tablet, 0 Refills, Maintenance, 05/31/22 13:26:00 EDT, Tablet, [facility]/pharmacy #[id number], [...] 05/31/22 13:26:00 EDT, [id number] 149[facility]86, cm, 10... Start Date: [...] Replace Required Details, Route to Pharmacy Electronically, [id number]... Start Date: 01/17/23 Status: Ordered Pulse Oximeter [...] JULIAN, # 60 tablet, 4 Refills, Maintenance, [facility] [id number], 152, cm, 11/06/20 10:17:00 EDT, Height, 81, kg, 11/01/19 19:28:00 EDT, Dry Weight Start Date: 03/07/21 Status: Ordered Zithromax 250 mg oral tablet 1 pack/packet, By Mouth, Once, # 6 tablet, 0 Refills, Soft Stop, 01/05/23 23:08:00 EDT, Tablet, [facility]acy [id number], Partial fill upon patient request if the [...] Care Nurse Name: Milton Gross NP Position: S PCO Associate Professional Member Role: PCP Address: Address: [address] [place] [address] Team Related Persons Name: YASMIN FISHER Address: home [address] [place] [address]
--- OUTSIDE RECORDS SUMMARY | 2023-07-21 13:07 | XMS_ITS | Continuity of Care Document ---
Author Name Unknown Organization [facility] Address [address] [place] [address]- Care Team Providers Care Coating And Embossing Unit Operator Name Role Phone Milton Gross NP Primary Care Physicia n Encounter [facility] Date(s): 09/01/19 - 10/16/[address] [address]- [facility] Attending Physician: Not on Staff, Attending MD [...] 18:58:54 EDT, Aerosol, Route to Pharmacy Electronically, [id number], [facility]/pharmacy #[id number], Compound Start Date: 11/02/18 Status: Ordered [...] 11/02/18 18:58:53 EDT, Route to Pharmacy Electronically, [id number], [facility]/pharmacy #[id number] Start Date: 11/02/18 Status: Ordered BD Ultra-Fine pen needles, BERTRAM 4 mm x 32 G BD Ultra-Fine pen needles, BERTRAM 4 mm x 32 G, See Instructions, # 150 each, Refills 11, Tot. [id number], Maintenance, Use for times a days with [...] 11/02/18 18:58:54 EDT, Route to Pharmacy Electronically, [id number], [facility]/pharmacy #[id number] Start Date: 11/02/18 Stop Date: 05/01/19 [...] mL, 11 Refills, Maintenance, 10/05/19 9:40:00 EST, [facility]/pharmacy #[id number], 152, cm, 05/18/19 9:07:00 EDT, Height [...] 05/18/19 9:27:02 EDT, Route to Pharmacy Electronically, [id number], [facility]/pharmacy #[id number] Start Date: 05/18/19 Stop Date: 05/12/20 [...]
--- OUTSIDE RECORDS SUMMARY | 2023-07-21 13:07 | XMS_ITS | Continuity of Care Document ---
Author Name Unknown Organization [facility] Address [address] [place] [address]- Care Team Providers Care Cooperative Education Coordinator Name Role Phone Renato MORRISON, Milton Loyola Primary Care Physicia n Encounter [facility] [place] Date(s): 04/04/21 - 05/04/21 [facility] [address] [place] [address]- Allergies, Adverse Reactions, Alerts Substance Reaction Severity Status traMADol tongue numbness--but she fell near loc Active Immunizations Given and Recorded Vaccine Date Status Refusal Reason SARS-CoV-2 (COVID-19) mRNA BNT-162b2 vac 1 05/04/21 Given influenza virus vaccine, inactivated 06/01/20 Give n influenza virus vaccine, inactivated 05/13/17 Give n hepatitis B adult vaccine 01/18/16 Given pneumococcal 23-valent vaccine 01/18/16 Given tetanus/diphtheria/pertussis, acel(Tdap) 01/18/16 Given Not Given Vaccine Date Status Refusal Reason influenza virus vaccine, inactivated 11/12/14 Not Given Patient Refuses pneumococcal 23-valent vaccine 11/12/14 Not Given Patient Refuses 1Result Comment: DILUENT LOT#: [id number] EXP: 11/14 MFG: FRESENSIUS Medications albuterol 0.083% [...] 12:25:00 EST, Aerosol, Route to Pharmacy Electronically, [id number], [facility]/pharmacy #[id number], 152, cm, 06/01/20 [...] 10/06/20 12:25:00 EST, Route to Pharmacy Electronically, [facility]/pharmacy #[id number], 152, cm, 06/01/20 9:54:00 EDT, Height, 81, kg, 11/01/19 19:28:00 EDT, Dry Weight Start Date: 10/06/20 Status: Ordered atorvastatin 10 mg oral tablet 1 tablet = 10 mg, By Mouth, Daily, # 30 tablet, 5 Refills, Maintenance, 05/05/21 11:03:00 EDT, [facility]/pharmacy #[id number], Partial fill upon patient request if the prescription is for a schedule II opioid drug., 152, cm, 04/18/21 13:24:00 EDT, Height, 85.2, k... Start Date: 05/05/21 Stop Date: 11/01/21 Status: Ordered atorvastatin 10 mg oral tablet 1 tablet = 10 mg, By Mouth, Daily, for 30 days, # 30 tablet, 5 Refills, Hard Stop 05/05/21 11:03:00EDT, 11/06/20 11:03:00 EDT, [facility]/pharmacy #[id number], Partial fill upon patient request if the prescription is for a schedule II opioid drug., 152, cm, 11/06... Start Date: 11/06/20 Stop Date: 05/05/21 Status: Ordered baclofen 5 mg oral tablet 1 tablet = 5 mg, By Mouth, 3 times a day, may cause drowsiness., # 42 tablet, 0 Refills, Maintenance, 12/14/20 11:40:00 EDT, Tablet, [facility]/pharmacy #[id number], Partial fill upon patient request if the prescription is for a schedule II opioid drug., 152, cm,... Start Date: 12/14/20 Stop Date: 12/28/20 Status: Ordered BD Ultra-Fine pen needles, BERTRAM 4 mm x 32 G BD Ultra-Fine pen needles, BERTRAM 4 mm x 32 G, See Instructions, # 150 each, Refills 11, Tot. [id number], Maintenance, Use for times a days with insulin. DM E119, 10/06/20 12:18:00 EST, Compound, 152, cm, 06/01/20 9:54:00 EDT, Height, 81, kg, 11/01/19 1... Start Date: 10/06/20 Status: Ordered BENGAY Arthritis topical cream See Instructions, rub into areas of pain and muscle tightness; instructions in Indian, # 1 each, 2Refills, Maintenance, 12/14/20 11:39:00 EDT, [facility]/pharmacy #[id number], Partial fill upon [...] 11/28/20 10:24:00 EDT, Route to Pharmacy Electronically, [facility]/pharmacy #[id number], 152, cm, 06/01/20 [...] 11 Refills, Maintenance, 10/06/20 12:22:00 EST, Lotion, [facility]/pharmacy #[id number], 1 application Topically 2 times a day,PRN:for dry skin, 152, cm, 06/01/20 9:54:00 EDT, Height, 81, kg, 03/... Start Date: 10/06/20 Status: Ordered Eucerin Plus topical lotion 1 application, Topically, 2 times a day, PRN for dry skin, # 600 mL, 1 Refills, Maintenance, 05/04/21 14:15:00 EDT, Lotion, [id number], Partial fill upon patient request if the prescription is for a schedule II opioid drug., 1 application Topi... Start Date: 05/04/21 Status: Ordered Freestyle Lancets See Instructions, # [...] 11 Refills, Maintenance, 05/04/21 14:14:00 EDT, Solution, [facility]/pharmacy #[id number], Partial fill upon patient request if the prescription is for a schedule II opio... Start Date: 05/04/21 Status: Ordered HumaLOG KwikPen 100 units/mL injectable solution = 15 units, Subcutaneous Infusion, 3 times a day before meals, Dx E11.9. D/C admelog same dose 15 units . give kwik pen, # 15 mL, 11 Refills, Maintenance, 10/06/20 12:20:00 EST, [facility]/pharmacy #[id number], 152, cm, 06/01/20 [...] 10/01/21 12:17:00 EST, 10/06/20 12:17:00 EST, Solution, [facility]/pharmacy #[id number], 152, cm, 06/01/20 9:54:00 EDT, Height, 81, kg, 11/01/19 19:28:00 EDT, Dry We... Start Date: 10/06/20 Stop Date: 10/01/21 Status: Ordered Lantus Solostar Pen 100 units/mL subcutaneous solution = 36 units, Subcutaneous Injection, Daily, for 30 days, DM E 11.9., # 12 mL, 11 Refills, Hard Stop 09/26/22 12:17:00 EST, 10/01/21 12:17:00 EST, Solution, [facility]/pharmacy #[id number], 152, cm, 05/04/21 13:50:00 EDT, Height, 85.2, kg, 04/18/21 13:24:00 EDT, Dry... Start Date: 10/01/21 Stop Date: 09/26/22 Status: Ordered loratadine 10 mg oral tablet See Instructions, ASAD BURKETT TODOS LOS MIRANDA, # 30 tablet, Refills 5, Maintenance, Instructions Replace Required Details, Route to Pharmacy Electronically, [id number], 152, cm, 11/06/20 10:17:00 EDT, Height, 81, kg, 11/01/19 19:28:00 EDT, . Start Date: 04/03/21 Status: Ordered Mapap Arthritis Pain 650 mg oral tablet, extended release 2 tablet = 1,300 mg, By Mouth, Every 8 hours, PRN as needed for pain, for 14 days, # 50 tablet, 1 Refills, Acute 06/01/21 14:16:00 EDT, 05/04/21 14:16:00 EDT, ER Tablet, [facility]/pharmacy #[id number], Partial fill upon patient request if the prescription is for... Start Date: 05/04/21 Stop Date: 06/01/21 Status: Ordered meclizine 25 mg oral tablet See Instructions, TOME KRYSTEN TABLETA POR VIA ORAL GIBRAN VECES AL JULIAN CUANDO SEA NECESARIO DIZZINESS, #50 tablet, 1 Refills, Acute, [id number], 152, cm, 11/06/20 10:17:00 EDT, Height, 81, kg, 11/01/19 19:28:00 EDT, Dry Weight Start Date: 12/07/20 Status: Ordered meclizine 25 mg oral tablet 1 tablet = 25 mg, By Mouth, 3 times a day, PRN for dizziness, # 30 tablet, 0 Refills, Maintenance, 04/08/21 22:48:00 EDT, Tablet, [facility]/pharmacy #[id number], Partial fill upon [...] 10/26/20 16:17:00 EST, Route to Pharmacy Electronically, [facility]/pharmacy #[id number], 152, cm, 06/01... Start Date: 10/26/20 Stop Date: 10/21/21 Status: Ordered Discoverables COVID-19 Vaccine 30 mcg/0.3 mL preservative-free intramuscular suspension 0.3 mL = 30 mcg, Intramuscular, Once, use our staff, # 0.3 mL, 0 Refills, Soft Stop, 05/04/21 14:12:00 EDT, Suspension, Partial fill upon patient request if the prescription is for a schedule II opioid drug. Start Date: 05/04/21 Status: Ordered sulindac 200 mg oral tablet 1 tablet = 200 mg, By Mouth, 2 times a day, # 60 tablet, 2 Refills, Maintenance, 12/14/20 11:44:00 EDT, Tablet, [id number], Partial fill upon patient request if the prescription is for a schedule II opioid drug., 152, cm, 11/06/20 10:17:00 EDT... Start Date: 12/14/20 Status: Ordered Vitamin B2 100 mg oral tablet See Instructions, ASAD LEZAMA AL JULIAN, # 60 tablet, 4 Refills, Maintenance, [facility] [id number], 152, cm, 11/06/20 10:17:00 EDT, Height, 81, kg, 11/01/19 19:28:00 EDT, Dry Weight Start Date: 03/07/21 Status: Ordered Vitamin D3 1000 intl units oral tablet 1 tablet = 1,000 International_Units, By Mouth, Daily, # 30 tablet, 11 Refills, Maintenance, 10/06/20 12:25:00 EST, Tablet, [facility]/pharmacy #[id number], 152, cm, 06/01/20 [...]
--- OUTSIDE RECORDS SUMMARY | 2023-07-21 13:07 | XMS_ITS | Continuity of Care Document ---
Author Name Unknown Organization [facility] Address [address] [place] [address]- Care Team Providers Care Doll Repairer Name Role Phone Milton Gross NP Primary Care Physicia n Encounter [facility] [place] [facility] [id number] Date(s): 03/28/22 - 04/27/[address] [address]- Attending Physician: Jimenez Grant Admitting Physician: Jimenez [...] Patient Refuses 1Result Comment: NS DIL LOT [id number] EXP 11/2022 2Result Comment: DILUENT LOT#: [id number] EXP: 11/14 MFG: FRESENSIUS Medications albuterol 0.083% inhalation solution 3 mL = 2.5 mg, Inhalation, Every 6 hours, PRN for wheezing, # 25 each, 11 Refills, Maintenance, 02/12/21 12:25:00 EST, Solution, [facility]/pharmacy #[id number], 152, [...] delayed release tablet See Instructions, ASAD KRYSTEN TABLETMackenzie MIRANDA, # 30 tablet, 11 Refills, 03/28/22 11:20:00 EDT, [facility]/pharmacy #[id number], 149.86, cm, 03/28/22 10:52:00 EDT, Height, 85.7, kg, 07/24/21 14:26:00 EST, Dry Weight Start Date: 03/28/22 Status: Ordered atorvastatin 10 mg oral tablet See Instructions, ASAD KRYSTEN TABLETMackenzie RODRÍGUEZ MIRANDA, # 30 tablet, 11 Refills, 03/28/22 11:20:00 EDT, [facility]/pharmacy #[id number], 149.86, cm, 03/28/22 10:52:00 EDT, Height, 85.7, kg, 07/24/21 14:26:00 EST, Dry Weight Start Date: 03/28/22 Status: Ordered BD Ultra-Fine pen needles, BERTRAM 4 mm x 32 G BD Ultra-Fine pen needles, BERTRAM 4 mm x 32 G, See Instructions, # 150 each, Refills 11, Tot. [id number], Maintenance, Use for times a days with [...] tablet, Refills 1, Route to Pharmacy Electronically, [id number], 149.86, cm, 08/15/21 11:29:00 EST, Height, 85.7, [...] tablet, 3 Refills, Maintenance, 07/24/21 15:01:00 EST, [facility]/pharmacy #[id number], Partial fill upon patient request if the prescription is for a schedule II opioid drug., 152, cm, 06/27... Start Date: 07/24/21 Stop Date: 11/21/21 Status: Ordered ergocalciferol 37443 iu oral capsule See Instructions, TOME 1 CAPSULA POR VIA ORAL ONCE WEEKLY, # 4 capsule, Refills 4, Instructions Replace Required Details, Route to Pharmacy Electronically, [id number], 149.86, cm, 08/15/21 11:29:00 EST, Height, 85.7, kg, 07/24/21 14:26:00 EST, Start Date: 1/31/22 Status: Ordered Escitalopram = 20 mg, By Mouth, Daily, 0 Refills, Maintenance, 05/13/19 15:46:32 EDT Start Date: 05/13/19 Status: Ordered Eucerin Plus topical lotion 1 application, Topically, 2 times a day, PRN for dry skin, # 600 mL, 1 Refills, Maintenance, 06/01/21 13:51:00 EDT, Lotion, [facility]/pharmacy #[id number], Partial fill upon patient request if the [...] # 15 Unknown, 5 Refills, [id number], 149.86, cm, 08/15/21 11:29:00 EST, Height, 85.7, [...] 09/21/23 12:17:00 EST, 09/26/22 12:17:00 EST, Solution, [facility]/pharmacy #[id number], 149.86, cm, 03/28/22 10:52:00 EDT, Height, 85.7, kg, 07/24/21 14:26:00 EST,... Start Date: 09/26/22 Stop Date: 09/21/23 Status: Ordered Lantus Solostar Pen 100 units/mL subcutaneous solution = 40 units, Subcutaneous Injection, Daily, for 30 days, DM E 11.9., # 12 mL, 11 Refills, Hard Stop 09/26/22 12:17:00 EST, 10/01/21 12:17:00 EST, Solution, [facility]/pharmacy #[id number], 152, cm, 05/04/21 13:50:00 EDT, Height, 85.2, kg, 04/18/21 13:24:00 EDT, Dry... Start Date: 10/01/21 Stop Date: 09/26/22 Status: Ordered loratadine 10 mg oral tablet See Instructions, TOME KRYSTEN TABLETA TODOS LOS MIRANDA, # 30 tablet, Refills 5, Tot. Refills 5, 03/28/2211:21:00 EDT, Instructions Replace Required Details, Route to Pharmacy Electronically, [facility]/pharmacy#[id number], 149.86, cm, 03/28/22 10:52:00 EDT, Height, 8... Start Date: 03/28/22 Status: Ordered meclizine 25 mg oral tablet 1 tablet = 25 mg, By Mouth, 3 times a day, PRN for dizziness, # 30 tablet, 0 Refills, Maintenance, 04/08/21 22:48:00 EDT, Tablet, [facility]/pharmacy #[id number], Partial fill upon patient request if the prescription is for a schedule II opioid drug., 152, cm, 03/... Start Date: 04/08/21 Status: Ordered Kangsheng Chuangxiang COVID-19 Vaccine 30 mcg/0.3 mL preservative-free intramuscular [...] Replace Required Details, Route to Pharmacy Electronically, [id number]... Start Date: 03/28/22 Status: Ordered raised toilt [...] # 60 tablet, 4 Refills, Maintenance, [id number], 152, cm, 11/06/20 10:17:00 EDT, Height, 81, [...] Team Personnel Name: Milton Gross NP Address: [address] [place] [address]
--- OUTSIDE RECORDS SUMMARY | 2023-07-21 13:07 | XMS_ITS | Continuity of Care Document ---
Author Name Unknown Organization [facility] Address [address] [place] [address]- Care Team Providers Care Gusset Edger Name Role Phone Milton Gross NP Primary Care Physicia n Encounter [facility] [place] [place] ACCT R [id number] Date(s): 06/29/21 - 07/29/21 [facility] [address] [place] [address]- Attending Physician: Jimenez Grant Admitting Physician: Jimenez [...] Patient Refuses 1Result Comment: NS DIL LOT [id number] EXP 11/2022 2Result Comment: DILUENT LOT#: [id number] EXP: 11/14 MFG: FRESENSIUS Medications acetaminophen 500 mg oral tablet 1 tablet = 500 mg, By Mouth, 3 times a day, for 30 days, take alternating with diclofenac. Haitian label, # 90 tablet, 0 Refills, Acute 08/23/21 15:01:00 EST, 07/24/21 15:01:00 EST, [id number] fill upon patient request if the... Start Date: 07/24/21 Stop Date: 08/23/21 Status: Ordered albuterol 0.083% inhalation solution 3 mL = 2.5 mg, Inhalation, Every 6 hours, PRN for wheezing, # 25 each, 11 Refills, Maintenance, 10/06/20 12:25:00 EST, Solution, [facility]/pharmacy #[id number], 152, cm, 06/01/20 9:54:00 EDT, Height, 81, kg, 11/01/19 19:28:00 EDT, Dry Weight Start Date: 10/06/20 Status: Ordered albuterol CFC free 90 mcg/inh inhalation aerosol 2, puffs, Inhalation, Every 4 hours, PRN, # 18 Gm, Refills 11, Tot. Refills 11, Maintenance, 10/06/20 12:25:00 EST, Aerosol, Route to Pharmacy Electronically, [id number], [facility]/pharmacy #[id number], 152, cm, 06/01/20 9:54:00 [...] [id number], cm, 06/01/20 9:54:00 EDT, Height, 81, kg, 11/01/19 19:28:00 EDT, Dry Weight Start Date: 10/06/20 Status: Ordered atorvastatin 10 mg oral tablet 1 tablet = 10 mg, By Mouth, Daily, # 30 tablet, 5 Refills, Maintenance, 05/05/21 11:03:00 EDT, [facility]/pharmacy #[id number], Partial fill upon patient request if the prescription is for a schedule II opioid drug., 152, cm, 04/18/21 13:24:00 EDT, Height, 85.2, k... Start Date: 05/05/21 Stop Date: 11/01/21 Status: Ordered BD Ultra-Fine pen needles, BERTRAM 4 mm x 32 G BD Ultra-Fine pen needles, BERTRAM 4 mm x 32 G, See Instructions, # 150 each, Refills 11, Tot. [id number], Maintenance, Use for times a days with insulin. DM E119, 10/06/20 12:18:00 EST, Compound, 152, cm, 06/01/20 9:54:00 EDT, Height, 81, kg, 11/01/19 1... Start Date: 10/06/20 Status: Ordered BENGAY Arthritis topical cream See Instructions, rub into areas of pain and muscle tightness; instructions in Haitian, # 1 each, 2Refills, Maintenance, 12/14/20 11:39:00 EDT, [facility]/pharmacy #[id number], Partial fill upon patient [...] 11/28/20 10:24:00 EDT, Route to Pharmacy Electronically, [facility]/pharmacy #[id number], 152, cm, 06/01/20 9:54:00 [...] Mouth, 2 times a day, with food Haitian label, # 60 tablet, 3 Refills, Maintenance, 07/24/21 15:01:00 EST, [facility]/pharmacy #[id number], Partial fill upon patient request if the prescription is for a schedule II opioid drug., 152, cm, 06/27... Start Date: 07/24/21 Stop Date: 11/21/21 Status: Ordered ergocalciferol 55316 iu oral capsule 50,000 International_Units, 1, capsule, By Mouth, Every week, # 18 capsule, Refills 0, Tot. Refills0, Maintenance, 06/01/21 13:45:00 EDT, Route to Pharmacy Electronically, [facility]/pharmacy #[id number], Partial fill upon patient request if the prescription is f... Start Date: 06/01/21 Stop Date: 09/29/21 Status: Ordered Escitalopram By Mouth, Daily, 0 Refills, Maintenance, 05/13/19 15:46:32 EDT Start Date: 05/13/19 Status: Ordered Eucerin Plus topical lotion 1 application, Topically, 2 times a day, PRN for dry skin, # 600 mL, 11 Refills, Maintenance, 10/06/20 12:22:00 EST, Lotion, [facility]/pharmacy #[id number], 1 application Topically 2 times a day,PRN:for dry skin, 152, cm, 06/01/20 9:54:00 EDT, Height, 81, kg, /... Start Date: 10/06/20 Status: Ordered Eucerin Plus topical lotion 1 application, Topically, 2 times a day, PRN for dry skin, # 600 mL, 1 Refills, Maintenance, 06/01/21 13:51:00 EDT, Lotion, [facility]/pharmacy #[id number], Partial fill upon patient [...] 11 Refills, Maintenance, 05/04/21 14:14:00 EDT, Solution, [facility]/pharmacy #[id number], Partial fill upon patient request if the prescription is for a schedule II opio... Start Date: 05/04/21 Status: Ordered HumaLOG KwikPen 100 units/mL injectable solution = 15 units, Subcutaneous Infusion, 3 times a day before meals, Dx E11.9. D/C admelog same dose 15 units . give kwik pen, # 15 mL, 11 Refills, Maintenance, 10/06/20 12:20:00 EST, [facility]/pharmacy #[id number], 152, cm, 06/01/20 9:54:00 EDT, Height, 81, kg, ... Start Date: 10/06/20 Stop Date: 10/01/21 Status: Ordered Imitrex 50 mg oral tablet See Instructions, 1 tablet By Mouth at onset of headache. May repeat once in 2 hours. Not > 4/ week., # 9 tablet, 0 Refills, Maintenance, 01/03/20 13:01:00 EDT, [facility]/pharmacy #[id number], 152, cm, 11/01/19 19:28:00 [...] 09/26/22 12:17:00 EST, 10/01/21 12:17:00 EST, Solution, [facility]/pharmacy #[id number], 152, cm, 05/04/21 13:50:00 EDT, Height, 85.2, kg, 04/18/21 13:24:00 EDT, Dry... Start Date: 10/01/21 Stop Date: 09/26/22 Status: Ordered loratadine 10 mg oral tablet See Instructions, ASAD MIRANDA, # 30 tablet, Refills 5, Maintenance, Instructions Replace Required Details, Route to Pharmacy Electronically, [id number], 152, cm, 11/06/20 10:17:00 EDT, Height, 81, kg, 11/01/19 19:28:00 EDT, . Start Date: 04/03/21 Status: Ordered meclizine 25 mg oral tablet See Instructions, TOME KRYSTEN TABLETA POR VIA ORAL GIBRAN VECES AL JULIAN CUANDO SEA NECESARIO DIZZINESS, #50 tablet, 1 Refills, Acute, [id number], 152, cm, 11/06/20 10:17:00 EDT, Height, 81, kg, 11/01/19 19:28:00 EDT, Dry Weight Start Date: 12/07/20 Status: Ordered meclizine 25 mg oral tablet 1 tablet = 25 mg, By Mouth, 3 times a day, PRN for dizziness, # 30 tablet, 0 Refills, Maintenance, 04/08/21 22:48:00 EDT, Tablet, [facility]/pharmacy #[id number], Partial fill upon patient [...] 10/26/20 16:17:00 EST, Route to Pharmacy Electronically, [facility]/pharmacy #[id number], 152, cm, 06/01... Start Date: 10/26/20 Stop Date: 10/21/21 Status: Ordered Digilab COVID-19 Vaccine 30 mcg/0.3 mL preservative-free intramuscular [...] 60 tablet, 4 Refills, Maintenance, [facility] [id number], 152, cm, 11/06/20 10:17:00 EDT, Height, 81, [...]
--- OUTSIDE RECORDS SUMMARY | 2023-07-21 13:07 | XMS_ITS | Continuity of Care Document ---
Author Name Unknown Organization [facility] Address [address] [place] [address]- Care Team Providers Care Window Shade Cutter And Mounter Name Role Phone Renato MORRISON, Milton Loyola Primary Care Physicia n Encounter [facility] [place] Date(s): 10/02/20 - 11/01/[address] [address]- Allergies, Adverse Reactions, Alerts Substance Reaction Severity Status traMADol tongue numbness--but she fell near [facility] Active Immunizations Given and Recorded Vaccine [...] 12:25:00 EST, Aerosol, Route to Pharmacy Electronically, [id number], [facility]/pharmacy #[id number], 152, cm, 06/01/20 9:54:00 EDT, [...] 12:25:00 EST, Route to Pharmacy Electronically, [facility]/pharmacy #[id number], 152, cm, 06/01/20 9:54:00 EDT, Height, 81, kg, 11/01/19 19:28:00 EDT, Dry Weight Start Date: 10/06/20 Status: Ordered BD Ultra-Fine pen needles, BERTRAM 4 mm x 32 G BD Ultra-Fine pen needles, BERTRAM 4 mm x 32 G, See Instructions, # 150 each, Refills 11, Tot. [id number], Maintenance, Use for times a days with [...] 10:24:00 EDT, Route to Pharmacy Electronically, [facility]/pharmacy #[id number], 152, cm, 06/01/20 9:54:00 EDT, Height, 81, kg, 10/31... Start Date: 11/28/20 Stop Date: 05/27/21 Status: Ordered Colace sodium 100 mg oral capsule 100 mg, 1, capsule, By Mouth, 2 times a day, PRN, for 30 days, # 60 capsule, Refills 5, Tot. Refills 5, Hard Stop 11/28/20 10:24:00 EDT, for constipation, 06/01/20 10:24:00 EDT, Route to Pharmacy Electronically, [facility]/pharmacy #[id number], 152, cm, 06/01/20 9... Start [...] Refills, Maintenance, 10/06/20 12:22:00 EST, Lotion, [facility]/pharmacy #[id number], 1 application Topically 2 times [...] Refills, Maintenance, 10/06/20 12:21:00 EST, Solution, [facility]/pharmacy #[id number], Partial fill upon patient request [...] 0 Refills, Maintenance, 01/03/20 13:01:00 EDT, [facility]/pharmacy #[id number], 152, cm, 11/01/19 19:28:00 EDT, [...] 12:17:00 EST, 10/06/20 12:17:00 EST, Solution, [facility]/pharmacy #[id number], 152, cm, 06/01/20 9:54:00 EDT, Height, 81, kg, 11/01/19 19:28:00 EDT, Dry We... Start Date: 10/06/20 Stop Date: 10/01/21 Status: Ordered loratadine 10 mg oral tablet 10 mg, 1, tablet, By Mouth, Daily, # 30 tablet, Refills 5, Tot. Refills 5, Maintenance, 02/20/21 9:48:00 EDT, Route to Pharmacy Electronically, [facility]/pharmacy #[id number], 152, cm, 06/01/20 9:54:00 EDT, [...] 11/03/20 12:27:00 EST, 10/06/20 12:27:00 EST, Tablet, [facility]/pharmacy #[id number], Partial fill upon patient request [...] 16:17:00 EST, Route to Pharmacy Electronically, [facility]/pharmacy #[id number], 152, cm, 06/01... Start Date: 10/26/20 Stop Date: 10/21/21 Status: Ordered mupirocin 2% topical ointment 1 application, Topically, 3 times a day, for 10 days, # 22 Gm, 1 Refills, Acute 11/15/20 12:24:00 EDT, 10/26/20 12:24:00 EST, Ointment, [facility]/pharmacy #[id number], Partial fill upon patient request [...]
--- OUTSIDE RECORDS SUMMARY | 2023-07-21 13:07 | XMS_ITS | Continuity of Care Document ---
Author Name Unknown Organization [facility] Address [address] [place] [address]- Care Team Providers Care Clinical Research Tech Name Role Phone Renato MORRISON, Milton Loyola Primary Care Physicia n [place] [facility] [place] - 09/15/[address] [address]- Allergies, Adverse Reactions, Alerts Substance Reaction Severity Status traMADol tongue numbness--but she fell near [facility] Active Immunizations Given and Recorded Vaccine [...] Stop 10/16/20 12:40:00 EST, 10/22/19 12:40:00 EST, [facility]/pharmacy #[id number]... Start Date: 10/22/19 Stop Date: 10/16/20 [...] 10:23:00 EDT, Aerosol, Route to Pharmacy Electronically, [id number], [facility]/pharmacy #[id number], 152, cm, [...] Instructions, # 150 each, Refills 11, Tot. [id number], Maintenance, Use for times a days with [...]
--- OUTSIDE RECORDS SUMMARY | 2023-07-21 13:07 | XMS_ITS | Continuity of Care Document ---
Author Name Unknown Organization [facility] Address [address] [place] [address]- Care Team Providers Care Well Digger Name Role Phone Milton Gross NP Primary Care Physicia n [place] [facility] [place]/06/23 - 04/05/[address] [address] Attending Physician: Jimenez Grant Admitting Physician: Jimenez Grant Referring Physician: AdmJimenez vieira Allergies, Adverse Reactions, Alerts Substance Reaction Severity Status traMADol tongue numbness--but she fell near [place] Active Immunizations Given and Recorded Vaccine Date Status Refusal Reason [id number] bivalent booster vax 07/17/22 Given influenza virus [...] Patient Refuses 1Result Comment: NS DIL LOT [id number] EXP 11/2022 2Result Comment: DILUENT LOT#: [id number] EXP: 11/14 MFG: FRESENSIUS Medications albuterol 0.083% inhalation solution 3 mL = 2.5 mg, Inhalation, Every 6 hours, PRN for wheezing, # 25 each, 11 Refills, Maintenance, 01/17/23 13:45:00 EDT, Solution, [facility]/pharmacy #[id number], 145, cm, 01/17/23 13:04:00 EDT, Height, [...] = 5 mg, By Mouth, Daily, by [facility]. Follow speciality, # 30 tablet, 2 Refills, Maintenance, 03/06/23 16:52:00 EDT, Tablet, [facility]/pharmacy #[id number], Partial fill upon patient request if theprescription is for a schedule II opioid drug., 145... Start Date: 03/06/23 Stop Date: 06/04/23 Status: Ordered Aspirin Low Dose 81 mg oral delayed release tablet See Instructions, ASAD BASHIR TABLETA MARIANNE JORDANS by [facility] records continue, # 30 tablet, 11 Refills, [...] Instructions, # 150 each, Refills 11, Tot. [id number], Maintenance, Use for times a days with [...] Compound Start Date: 07/25/21 Status: Ordered ergocalciferol 23952 iu oral capsule 1, capsule, By Mouth, Every week, # 4 capsule, Refills 4, Maintenance, 10/22/22 15:42:00 EST, [facility] Electron[facility], [facility], 149.8, cm, 07/22/22 9:38:00 EST, Height, 83.3, kg, 06/14/22 18:50:00 EDT, Dry Weight Start Date: 10/22/22 Status: Ordered Escitalopram = 20 mg, By Mouth, Daily, 0 Refills, Maintenance, 05/13/19 15:46:32 EDT Start Date: 05/13/19 Status: Ordered Eucerin Plus topical lotion 1 application, Topically, 2 times a day, PRN for dry skin, # 600 mL, 11 Refills, Maintenance, 01/17/23 13:42:00 EDT, Lotion, [facility]/pharmacy #[id number], Partial fill upon patient request if the prescription is for a schedule II opioid drug., 1 application Top... Start Date: 01/17/23 Stop Date: 01/12/24 Status: Ordered Eucerin Plus topical lotion 1 application, Topically, 2 times a day, PRN for dry skin, # 600 mL, 1 Refills, Maintenance, 05/24/22 14:28:00 EDT, Lotion, [facility]/pharmacy #[id number], Partial fill upon [...] sites. stop novolog due insurance issues. in sri lankan, # 15 mL, 11 Refills, Hard Stop 08/07/23 12:49:00 EST, 08/12/22 12:49:00 EST,... Start Date: 08/12/22 Stop Date: 08/07/23 Status: Ordered Insulin Lispro Scot KwikPen 100 units/mL injectable solution = 15 units, Subcutaneous Infusion, 3 times a day before meals, with breakfast and lunch rotate injection sites. stop novolog due insurance issues. in sri lankan, # 15 mL, 11 Refills, Maintenance, 08/07/23 12:49:00 EST, [facility]/pharmacy #[id number], Partial fill... Start [...] 10 mg oral tablet See Instructions, ASAD MOSSDOS LOS MIRANDA, # 30 tablet, Refills 5, Tot. Refills 5, 05/24/2214:42:00 EDT, Instructions Replace Required Details, Route to Pharmacy Electronically, [facility]/pharmacy#[id number], 149.86, cm, 05/24/22 13:53:00 EDT, Height, 8... Start Date: 05/24/22 Status: Ordered meclizine 25 mg oral tablet 1 tablet = 25 mg, By Mouth, 3 times a day, PRN for dizziness, # 30 tablet, 0 Refills, Maintenance, 05/31/22 13:26:00 EDT, Tablet, [facility]/pharmacy #[id number], Partial fill upon [...] 05/31/22 13:26:00 EDT, [facility] 149[facility]86, cm, 10... Start Date: [...] Replace Required Details, Route to Pharmacy Electronically, [id number]... Start Date: 01/17/23 Status: Ordered Pulse Oximeter [...] 4 Refills, Maintenance, [facility] [id number], 152, cm, 11/06/20 10:17:00 EDT, Height, 81, kg, 11/01/19 19:28:00 EDT, Dry Weight Start Date: 03/07/21 Status: Ordered Zithromax 250 mg oral tablet 1 pack/packet, By Mouth, Once, # 6 tablet, 0 Refills, Soft Stop, 01/05/23 23:08:00 EDT, Tablet, [id number], Partial fill upon patient request if the [...] Associate Professional Member Role: PCP Address: Address: [address] [place] [address] Care Team Related Persons Name: YASMIN FISHER Address: home [address] [place] [address]
--- OUTSIDE RECORDS SUMMARY | 2023-07-21 13:07 | XMS_ITS | Continuity of Care Document ---
Author Name Unknown Organization [facility] Address [address] [place] [address]- Care Team Providers Care Dental Appliance Repairer Name Role Phone Milton Gross NP Primary Care Physicia n Encounter [facility] Date(s): 03/06/21 - 04/05/[address] [address]- Allergies, Adverse Reactions, Alerts Substance Reaction Severity [...] 12:25:00 EST, Aerosol, Route to Pharmacy Electronically, [id number], [facility]/pharmacy #[id number], 152, cm, 06/01/20 9:54:00 EDT, Hei... [...] 12:25:00 EST, Route to Pharmacy Electronically, [facility]/pharmacy #[id number], 152, cm, 06/01/20 9:54:00 EDT, Height, 81, kg, 11/01/19 19:28:00 EDT, Dry Weight Start Date: 10/06/20 Status: Ordered atorvastatin 10 mg oral tablet 1 tablet = 10 mg, By Mouth, Daily, # 30 tablet, 5 Refills, Maintenance, 11/06/20 11:03:00 EDT, [facility]/pharmacy #[id number], Partial fill upon patient request if the prescription is for a schedule II opioid drug., 152, cm, 11/06/20 10:17:00 EDT, Height, 81, kg,... Start Date: 11/06/20 Stop Date: 05/05/21 Status: Ordered baclofen 5 mg oral tablet 1 tablet = 5 mg, By Mouth, 3 times a day, may cause drowsiness., # 42 tablet, 0 Refills, Maintenance, 12/14/20 11:40:00 EDT, Tablet, [facility]/pharmacy #[id number], Partial fill upon patient request if the prescription is for a schedule II opioid drug., 152, cm,... Start Date: 12/14/20 Stop Date: 12/28/20 Status: Ordered BD Ultra-Fine pen needles, BERTRAM 4 mm x 32 G BD Ultra-Fine pen needles, BERTRAM 4 mm x 32 G, See Instructions, # 150 each, Refills 11, Tot. [id number], Maintenance, Use for times a days with insulin. DM E119, 10/06/20 12:18:00 EST, Compound, 152, cm, 06/01/20 9:54:00 EDT, Height, 81, kg, 11/01/19 1... Start Date: 10/06/20 Status: Ordered BENGAY Arthritis topical cream See Instructions, rub into areas of pain and muscle tightness; instructions in Kiswahili, # 1 each, 2Refills, Maintenance, 12/14/20 11:39:00 EDT, [facility]/pharmacy #[id number], Partial fill upon patient request if [...] 10:24:00 EDT, Route to Pharmacy Electronically, [facility]/pharmacy #[id number], 152, cm, 06/01/20 9:54:00 EDT, Height, [...] Refills, Maintenance, 10/06/20 12:22:00 EST, Lotion, [facility]/pharmacy #[id number], 1 application Topically 2 times a [...] Refills, Maintenance, 10/06/20 12:21:00 EST, Solution, [facility]/pharmacy #[id number], Partial fill upon patient request if [...] Required Details, Route to Pharmacy Electronically, [facility] STORE [id number], 152, cm, 11/06/20 10:17:00 EDT, Height, 81, kg, 11/01/19 19:28:00 EDT, Start Date: 04/03/21 Status: Ordered meclizine 25 mg oral tablet See Instructions, PJE KRYSTEN TABLETA POR VIA ORAL GIBRAN VECES AL JULIAN CUANDO SEA NECESARIO DIZZINESS, #50 tablet, 1 Refills, Acute, [facility], 152, cm, 11/06/20 10:17:00 EDT, Height, 81, kg, 11/01/19 19:28:00 EDT, Dry Weight Start Date: 12/07/20 Status: Ordered metoprolol 25 mg oral tablet 25 mg, 1, tablet, By Mouth, 2 times a day, for 90 days, This is an increase in dose., # 180 tablet,Refills 3, Tot. Refills 3, Hard Stop 10/21/21 16:17:00 EST, 10/26/20 16:17:00 EST, Route to Pharmacy Electronically, [facility]/pharmacy #[id number], 152, cm, 06/01... Start Date: 10/26/20 Stop Date: 10/21/21 Status: Ordered sulindac 200 mg oral tablet 1 tablet = 200 mg, By Mouth, 2 times a day, # 60 tablet, 2 Refills, Maintenance, 12/14/20 11:44:00 EDT, Tablet, [facility]/pharmacy #[id number], Partial fill upon patient request if the prescription is for a schedule II opioid drug., 152, cm, 11/06/20 10:17:00 EDT... Start Date: 12/14/20 Status: Ordered Vitamin B2 100 mg oral tablet See Instructions, TOME KRYSTEN TABLETA DOS VECES AL JULIAN, # 60 tablet, 4 Refills, Maintenance, [id number], 152, cm, 11/06/20 10:17:00 EDT, Height, 81, [...]
--- OUTSIDE RECORDS SUMMARY | 2023-07-21 13:07 | XMS_ITS | Continuity of Care Document ---
Author Name Unknown Organization [facility] Address [address] [place] [address]- Care Team Providers Care Consumer Studies Professor Name Role Phone Milton Gross NP Primary Care Physicia n [place] [facility] [place] [id number] Date(s): 09/16/19 - 09/26/[address] [address]- [facility] Attending Physician: Jimenez Grant Admitting Physician: Jimenez [...] 18:58:54 EDT, Aerosol, Route to Pharmacy Electronically, [id number], [id number], Compound Start Date: 11/02/18 Status: Ordered [...] 11/02/18 18:58:53 EDT, Route to Pharmacy Electronically, [id number], [facility]/pharmacy #[id number] Start Date: 11/02/18 Status: Ordered BD Ultra-Fine pen needles, BERTRAM 4 mm x 32 G BD Ultra-Fine pen needles, BERTRAM 4 mm x 32 G, See Instructions, # 150 each, Refills 11, Tot. Dilrznr11, Maintenance, Use for times a days with [...] 11/02/18 18:58:54 EDT, Route to Pharmacy Electronically, [id number], [facility]/pharmacy #[id number] Start Date: 11/02/18 Stop [...] humalog, # 15 mL, 11 Refills, Maintenance, 09/15/18 14:00:06 EST Start Date: 09/15/18 Stop Date: 09/10/19 Status: Ordered Imitrex 50 mg oral tablet [...] 05/18/19 9:27:02 EDT, Route to Pharmacy Electronically, [id number], [facility]/pharmacy #[id number] Start Date: 05/18/19 Stop Date: 05/12/20 [...]
--- OUTSIDE RECORDS SUMMARY | 2023-07-21 13:07 | XMS_ITS | Continuity of Care Document ---
Author Name Unknown Organization [facility] Address [address] [place] [address]- Care Team Providers Care Photographs Curator Name Role Phone Milton Gross NP Primary Care Physicia n Encounter [facility] [place] Date(s): 11/01/19 - 12/16/[address] [address]- [facility] Attending Physician: Not on Staff, Attending [...] 18:58:54 EDT, Aerosol, Route to Pharmacy Electronically, [id number], [facility]/pharmacy #[id number], Compound Start Date: 11/02/18 Status: [...] 11/02/18 18:58:53 EDT, Route to Pharmacy Electronically, [id number], [facility]/pharmacy #[id number] Start Date: 11/02/18 Status: Ordered BD Ultra-Fine pen needles, BERTRAM 4 mm x 32 G BD Ultra-Fine pen needles, BERTRAM 4 mm x 32 G, See Instructions, # 150 each, Refills 11, Tot. [id number], Maintenance, Use for times a days with [...] 11/02/18 18:58:54 EDT, Route to Pharmacy Electronically, [id number], [facility]/pharmacy #[id number] Start Date: 11/02/18 Stop Date: [...] 10:57:00 EDT, Route to Pharmacy Electronically, [facility] [...] 16:17:00 EDT, Route to Pharmacy Electronically, [facility]/pharmacy #[id number], 152, cm, 10/22/19 15:02:00 EST, [...] Stop 01/20/20 12:40:00 EDT, 10/22/19 12:40:00 EST, [facility]/pharmacy #[id number], 152, c... Start Date: 10/22/19 Stop [...]
--- OUTSIDE RECORDS SUMMARY | 2023-07-21 13:07 | XMS_ITS | Continuity of Care Document ---
Author Name Unknown Organization [facility] Address [address] [place] [address]- Care Team Providers Care Borematic Machine Operator Name Role Phone Milton Gross NP Primary Care Physicia n Encounter [facility] [place] Date(s): 11/06/21 - 01/24/22 [facility] [address] [place] [address]- Attending Physician: Akhil Eastman MD Admitting Physician: [...] Patient Refuses 1Result Comment: NS DIL LOT [id number] EXP 11/2022 2Result Comment: DILUENT LOT#: [id number] EXP: 11/14 MFG: FRESENSIUS Medications albuterol 0.083% [...] release tablet See Instructions, ASAD BASHIR TABLETA TOVarsity News NetworkS MARCOS MIRANDA, # 30 tablet, 11 Refills, [facility], 149.86, cm, 08/15/21 11:29:00 EST, Height, 85.7, kg, 07/24/21 14:26:00 EST, Dry Weight Start Date: 10/16/21 Status: Ordered atorvastatin 10 mg oral tablet See Instructions, ASAD BASHIR TABLETA TOVarsity News NetworkS vitaMedMD MIRANDA, # 30 tablet, 5 Refills, [facility], 149.86,cm, 08/15/21 11:29:00 EST, Height, 85.7, kg, 07/24/21 14:26:00 EST, Dry Weight Start Date: 10/29/21 Status: Ordered BD Ultra-Fine pen needles, BERTRAM 4 mm x 32 G BD Ultra-Fine pen needles, BERTRAM 4 mm x 32 G, See Instructions, # 150 each, Refills 11, Tot. [id number], Maintenance, Use for times a days with [...] tablet, Refills 1, Route to Pharmacy Electronically, [facility], 149.86, cm, 08/15/21 11:29:00 EST, Height, 85.7, [...] tablet, 3 Refills, Maintenance, 07/24/21 15:01:00 EST, [facility]/pharmacy #[id number], Partial fill upon patient request if the prescription is for a schedule II opioid drug., 152, cm, 06/27... Start Date: 07/24/21 Stop Date: 11/21/21 Status: Ordered ergocalciferol 62289 iu oral capsule See Instructions, TOME 1 CAPSULA POR VIA ORAL ONCE WEEKLY, # 4 capsule, Refills 4, Instructions Replace Required Details, Route to Pharmacy Electronically, [facility], 149.86, cm, 08/15/21 11:29:00 EST, Height, 85.7, kg, 07/24/21 14:26:00 EST, Start Date: 09/24/21 Status: Ordered Escitalopram = 20 mg, By Mouth, Daily, 0 Refills, Maintenance, 05/13/19 15:46:32 EDT Start Date: 05/13/19 Status: Ordered Eucerin Plus topical lotion 1 application, Topically, 2 times a day, PRN for dry skin, # 600 mL, 1 Refills, Maintenance, 06/01/21 13:51:00 EDT, Lotion, [facility]/pharmacy #[id number], Partial fill upon patient request if the [...] # 15 Unknown, 5 Refills, [facility], 149.86, cm, 08/15/21 11:29:00 EST, Height, 85.7, kg, 07/24/21 14:26:00 EST, Dry Weight Start Date: 11/13/21 Status: Ordered Imitrex 50 mg oral tablet See Instructions, 1 tablet By Mouth at onset of headache. May repeat once in 2 hours. Not > 4/ week., # 9 tablet, 0 Refills, Maintenance, 01/03/20 13:01:00 EDT, [facility]/pharmacy #[id number], 152, cm, 11/01/19 19:28:00 [...] 09/26/22 12:17:00 EST, 10/01/21 12:17:00 EST, Solution, [facility]/pharmacy #[id number], 152, cm, 05/04/21 13:50:00 EDT, Height, 85.2, kg, 04/18/21 13:24:00 EDT, Dry... Start Date: 10/01/21 Stop Date: 09/26/22 Status: Ordered loratadine 10 mg oral tablet See Instructions, ASAD SHAWA TODOS LOS MIRANDA, # 30 tablet, Refills 5, Instructions Replace Required Details, Route to Pharmacy Electronically, [facility], 149.86, cm, 08/15/21 11:29:00 EST,Height, 85.7, kg, 07/24/21 14:26:00 EST, Dry Weight Start Date: 09/27/21 Status: Ordered meclizine 25 mg oral tablet 1 tablet = 25 mg, By Mouth, 3 times a day, PRN for dizziness, # 30 tablet, 0 Refills, Maintenance, 04/08/21 22:48:00 EDT, Tablet, [facility]/pharmacy #[id number], Partial fill upon patient request if the prescription is for a schedule II opioid drug., 152, cm, 03/... Start Date: 04/08/21 Status: Ordered DermApproved COVID-19 Vaccine 30 mcg/0.3 mL preservative-free intramuscular [...] Replace Required Details, Route to Pharmacy Electronically, [id number], [facility]ORE 58833, 149.86, cm, 12... Start Date: 10/15/21 Status: [...] mg oral tablet See Instructions, ASAD KRYSTEN KWADWO DOS BRIAN AL JULIAN, # 60 tablet, 4 Refills, Maintenance, [facility] [id number], 152, cm, 11/06/20 10:17:00 EDT, Height, 81, [...]
--- OUTSIDE RECORDS SUMMARY | 2023-07-21 13:08 | XMS_ITS | Continuity of Care Document ---
Author Name Unknown Organization [facility] Address [address] [place] [address]- Care Team Providers Care Director Recreation Center Name Role Phone Renato MORRISON, Milton Loyola Primary Care Physicia n Encounter [facility] [place] Date(s): 02/14/21 - 03/16/[address] [address]- Allergies, Adverse Reactions, Alerts Substance Reaction Severity [...] 12:25:00 EST, Aerosol, Route to Pharmacy Electronically, [id number], [facility]/pharmacy #[id number], 152, cm, 06/01/20 9:54:00 EDT, [...] 12:25:00 EST, Route to Pharmacy Electronically, [facility]/pharmacy #[id number], 152, cm, 06/01/20 9:54:00 EDT, Height, 81, kg, 11/01/19 19:28:00 EDT, Dry Weight Start Date: 10/06/20 Status: Ordered atorvastatin 10 mg oral tablet 1 tablet = 10 mg, By Mouth, Daily, # 30 tablet, 5 Refills, Maintenance, 11/06/20 11:03:00 EDT, [facility]/pharmacy #[id number], Partial fill upon patient [...] Refills, Maintenance, 12/14/20 11:40:00 EDT, Tablet, [facility]/pharmacy #[id number], Partial fill upon patient request if the prescription is for a schedule II opioid drug., 152, cm,... Start Date: 12/14/20 Stop Date: 12/28/20 Status: Ordered BD Ultra-Fine pen needles, BERTRAM 4 mm x 32 G BD Ultra-Fine pen needles, BERTRAM 4 mm x 32 G, See Instructions, # 150 each, Refills 11, Tot. [id number], Maintenance, Use for times a days with insulin. DM E119, 10/06/20 12:18:00 EST, Compound, 152, cm, 06/01/20 9:54:00 EDT, Height, 81, kg, 11/01/19 1... Start Date: 10/06/20 Status: Ordered BENGAY Arthritis topical cream See Instructions, rub into areas of pain and muscle tightness; instructions in Nigerian, # 1 each, 2Refills, Maintenance, 12/14/20 11:39:00 EDT, [facility]/pharmacy #[id number], Partial fill upon patient [...] 10:24:00 EDT, Route to Pharmacy Electronically, [facility]/pharmacy #[id number], 152, cm, 06/01/20 9:54:00 EDT, [...] Refills, Maintenance, 10/06/20 12:22:00 EST, Lotion, [facility]/pharmacy #[id number], 1 application Topically 2 times [...] 11 Refills, Maintenance, 10/06/20 12:20:00 EST, [facility]/pharmacy #[id number], 152, cm, 06/01/20 9:54:00 EDT, [...] 02/20/21 9:48:00 EDT, Route to Pharmacy Electronically, [facility]/pharmacy #[id number], 152, cm, 06/01/20 9:54:00 EDT, Height, 81, kg, 11/01/19 19:28:00 EDT, Dry Weight Start Date: 02/20/21 Stop Date: 08/19/21 Status: Ordered meclizine 25 mg oral tablet See Instructions, TOME KRYSTEN TABLETA POR VIA ORAL GIBRAN VECES AL JULIAN CUANDO SEA NECESARIO DIZZINESS, #50 tablet, 1 Refills, Acute, [facility] 922[facility], 152, cm, 11/06/20 10:17:00 EDT, Height, 81, kg, 11/01/19 19:28:00 EDT, Dry Weight Start Date: 12/07/20 Status: Ordered metoprolol 25 mg oral tablet 25 mg, 1, tablet, By Mouth, 2 times a day, for 90 days, This is an increase in dose., # 180 tablet,Refills 3, Tot. Refills 3, Hard Stop 10/21/21 16:17:00 EST, 10/26/20 16:17:00 EST, Route to Pharmacy Electronically, [facility]/pharmacy #[id number], 152, cm, 06/01... Start Date: 10/26/20 Stop Date: 10/21/21 Status: Ordered sulindac 200 mg oral tablet 1 tablet = 200 mg, By Mouth, 2 times a day, # 60 tablet, 2 Refills, Maintenance, 12/14/20 11:44:00 EDT, Tablet, [facility]/pharmacy #[id number], Partial fill upon patient request if the prescription is for a schedule II opioid drug., 152, cm, 11/06/20 10:17:00 EDT... Start Date: 12/14/20 Status: Ordered Vitamin B2 100 mg oral tablet See Instructions, TOME KRYSTEN TABLETA DOS VECES AL JULIAN, # 60 tablet, 4 Refills, Maintenance, [facility] [id number], 152, cm, 11/06/20 10:17:00 EDT, Height, 81, kg, 11/01/19 19:28:00 EDT, Dry Weight Start Date: 03/07/21 Status: Ordered Vitamin D3 1000 intl units oral tablet 1 tablet = 1,000 International_Units, By Mouth, Daily, # 30 tablet, 11 Refills, Maintenance, 10/06/20 12:25:00 EST, Tablet, [facility]/pharmacy #[id number], 152, cm, 06/01/20 9:54:00 EDT, [...]
--- OUTSIDE RECORDS SUMMARY | 2023-07-21 13:08 | XMS_ITS | Continuity of Care Document ---
Author Name Unknown Organization [facility] Address [address] [place] [address]- Care Team Providers Care Pattern Cleaner Name Role Phone Renato MORRISON, Milton Loyola Primary Care Physicia n Encounter [facility] [place] Date(s): 05/30/21 - 06/06/21 [facility] [address] [place] [address]- Attending Physician: Melani Delgado NP Admitting Physician: Melani Delgado NP Referring Physician: Jaren DINERO, Akhil Gamboa Allergies, Adverse Reactions, Alerts Substance Reaction Severity [...] Patient Refuses 1Result Comment: NS DIL LOT [id number] EXP 11/2022 2Result Comment: DILUENT LOT#: [id number] EXP: 11/14 MFG: FRESENSIUS Medications albuterol 0.083% inhalation solution 3 mL = 2.5 mg, Inhalation, Every 6 hours, PRN for wheezing, # 25 each, 11 Refills, Maintenance, 10/06/20 12:25:00 EST, Solution, [facility]/pharmacy #[id number], 152, cm, 06/01/20 9:54:00 EDT, Height, 81, kg, 11/01/19 19:28:00 EDT, Dry Weight Start Date: 10/06/20 Status: Ordered albuterol CFC free 90 mcg/inh inhalation aerosol 2, puffs, Inhalation, Every 4 hours, PRN, # 18 Gm, Refills 11, Tot. Refills 11, Maintenance, 10/06/20 12:25:00 EST, Aerosol, Route to Pharmacy Electronically, [id number], [facility]/pharmacy #[id number], 152, cm, 06/01/20 9:54:00 EDT, [...] 12:25:00 EST, Route to Pharmacy Electronically, [facility]/pharmacy #[id number], 152, cm, 06/01/20 9:54:00 EDT, Height, 81, kg, 11/01/19 19:28:00 EDT, Dry Weight Start Date: 10/06/20 Status: Ordered atorvastatin 10 mg oral tablet 1 tablet = 10 mg, By Mouth, Daily, # 30 tablet, 5 Refills, Maintenance, 05/05/21 11:03:00 EDT, [facility]/pharmacy #[id number], Partial fill upon patient [...] Refills, Maintenance, 12/14/20 11:40:00 EDT, Tablet, [facility]/pharmacy #[id number], Partial fill upon patient request if the prescription is for a schedule II opioid drug., 152, cm,... Start Date: 12/14/20 Stop Date: 12/28/20 Status: Ordered BD Ultra-Fine pen needles, BERTRAM 4 mm x 32 G BD Ultra-Fine pen needles, BERTRAM 4 mm x 32 G, See Instructions, # 150 each, Refills 11, Tot. [id number], Maintenance, Use for times a days with insulin. DM E119, 10/06/20 12:18:00 EST, Compound, 152, cm, 06/01/20 9:54:00 EDT, Height, 81, kg, 11/01/19 1... Start Date: 10/06/20 Status: Ordered BENGAY Arthritis topical cream See Instructions, rub into areas of pain and muscle tightness; instructions in Ugandan, # 1 each, 2Refills, Maintenance, 12/14/20 11:39:00 EDT, [facility]/pharmacy #[id number], Partial fill upon patient [...] 10:24:00 EDT, Route to Pharmacy Electronically, [facility]/pharmacy #[id number], 152, cm, 06/01/20 9:54:00 EDT, [...] Compound Start Date: 04/18/21 Status: Ordered ergocalciferol 07852 iu oral capsule 50,000 International_Units, 1, capsule, By Mouth, Every week, # 18 capsule, Refills 0, Tot. Refills0, Maintenance, 06/01/21 13:45:00 EDT, Route to Pharmacy Electronically, [facility]/pharmacy #[id number], Partial fill upon patient request if the prescription is f... Start Date: 06/01/21 Stop Date: 09/29/21 Status: Ordered Escitalopram By Mouth, Daily, 0 Refills, Maintenance, 05/13/19 15:46:32 EDT Start Date: 05/13/19 Status: Ordered Eucerin Plus topical lotion 1 application, Topically, 2 times a day, PRN for dry skin, # 600 mL, 11 Refills, Maintenance, 10/06/20 12:22:00 EST, Lotion, [facility]/pharmacy #[id number], 1 application Topically 2 times a day,PRN:for dry skin, 152, cm, 06/01/20 9:54:00 EDT, Height, 81, kg, 03... Start Date: 10/06/20 Status: Ordered Eucerin Plus topical lotion 1 application, Topically, 2 times a day, PRN for dry skin, # 600 mL, 1 Refills, Maintenance, 06/01/21 13:51:00 EDT, Lotion, [facility]/pharmacy #[id number], Partial fill upon patient [...] 13:48:00 EDT, Route to Pharmacy Electronically, [facility]/pharmacy #[id number], Partial fill upon patient request if the prescription is for a schedule II... Start Date: 06/01/21 Stop Date: 07/31/21 Status: Ordered Humalog 100 u/ml subcutaneous injection = 15 units, Subcutaneous Injection, 3 times a day before meals, discontinue admelog, # 15 mL, 11 Refills, Maintenance, 05/04/21 14:14:00 EDT, Solution, [facility]/pharmacy #[id number], Partial fill upon patient request if the prescription is for a schedule II opio... Start Date: 05/04/21 Status: Ordered HumaLOG KwikPen 100 units/mL injectable solution = 15 units, Subcutaneous Infusion, 3 times a day before meals, Dx E11.9. D/C admelog same dose 15 units . give kwik pen, # 15 mL, 11 Refills, Maintenance, 10/06/20 12:20:00 EST, [facility]/pharmacy #[id number], 152, cm, 06/01/20 9:54:00 EDT, Height, 81, kg, ... Start Date: 10/06/20 Stop Date: 10/01/21 Status: Ordered Imitrex 50 mg oral tablet See Instructions, 1 tablet By Mouth at onset of headache. May repeat once in 2 hours. Not > 4/ week., # 9 tablet, 0 Refills, Maintenance, 01/03/20 13:01:00 EDT, [facility]/pharmacy #[id number], 152, cm, 11/01/19 19:28:00 EDT, [...] 12:17:00 EST, 10/01/21 12:17:00 EST, Solution, [facility]/pharmacy #[id number], 152, cm, 05/04/21 13:50:00 EDT, Height, 85.2, kg, 04/18/21 13:24:00 EDT, Dry... Start Date: 10/01/21 Stop Date: 09/26/22 Status: Ordered loratadine 10 mg oral tablet See Instructions, ASAD MIRANDA, # 30 tablet, Refills 5, Maintenance, Instructions Replace Required Details, Route to Pharmacy Electronically, [facility], 152, cm, 11/06/20 10:17:00 EDT, Height, 81, kg, 11/01/19 19:28:00 EDT, DrBonilla.. Start Date: 04/03/21 Status: Ordered meclizine 25 mg oral tablet See Instructions, TOME KRYSTEN TABLETA POR VIA ORAL GIBRAN VECES AL JULIAN CUANDO SEA NECESARIO DIZZINESS, #50 tablet, 1 Refills, Acute, [facility] 8[facility]06, 152, cm, 11/06/20 10:17:00 EDT, Height, 81, kg, 11/01/19 19:28:00 EDT, Dry Weight Start Date: 12/07/20 Status: Ordered meclizine 25 mg oral tablet 1 tablet = 25 mg, By Mouth, 3 times a day, PRN for dizziness, # 30 tablet, 0 Refills, Maintenance, 04/08/21 22:48:00 EDT, Tablet, [facility]/pharmacy #[id number], Partial fill upon patient [...] 16:17:00 EST, Route to Pharmacy Electronically, [facility]/pharmacy #[id number], 152, cm, 06/01... Start Date: 10/26/20 Stop Date: 10/21/21 Status: Ordered Kromatid COVID-19 Vaccine 30 mcg/0.3 mL preservative-free intramuscular [...] Refills, Maintenance, 12/14/20 11:44:00 EDT, Tablet, [facility]/pharmacy #[id number], Partial fill upon patient request if the prescription is for a schedule II opioid drug., 152, cm, 11/06/20 10:17:00 EDT... Start Date: 12/14/20 Status: Ordered Vitamin B2 100 mg oral tablet See Instructions, ASAD SHAWA DOS VECES AL JULIAN, # 60 tablet, 4 Refills, Maintenance, [facility] [id number], 152, cm, 11/06/20 10:17:00 EDT, Height, 81, kg, 11/01/19 19:28:00 EDT, Dry Weight Start Date: 03/07/21 Status: Ordered Problem List Condition Effective Dates Status Health Status Inform ant Annual physical exam(Confirmed) Active Asthma(Confirmed) Active Depression(Confirmed) Active Diabetes mellitus(Confirmed) Active Hypertension(Confirmed) Active Lactic acidosis(Confirmed) Active Meningioma(Confirmed) Active Obstructive sleep apnea(Confirmed) Active Vital Signs Most recent to oldest [Reference Range]: 1 Height 152 cm (05/30/21 11:18 AM) Weight 81.65 kg (05/30/21 11:18 AM) Oxygen Saturation [94-100 %] 97 % (05/30/21 11:18 AM) Pulse Rate [55-90 bpm] 94 bpm *H* (05/30/21 11:18 AM) Body Mass Index [18.5-24.99] 35.34 *>HHI* (05/30/21 11:18 AM) Blood Pressure [90-138/55-84 mm Hg] 132/ 84mm Hg (05/30/21 11:18 AM) Mode of Delivery (Oxygen) Room air (05/30/21 11:18 AM) Blood pressure sites Arm, left (05/30/21 11:18 AM) Weight Obtained Via Patient/family state d (05/30/21 11:18 AM) Social History Social History Type Response Smoking Status Never smoker; Tobacc o user in household: No; Type: Cigarettes entered on: 11/07/14 Sex
--- OUTSIDE RECORDS SUMMARY | 2023-07-21 13:08 | XMS_ITS | Continuity of Care Document ---
Author Name Unknown Organization [facility] Address [address] [place] [address]- Care Team Providers Care Wine Cellar Stock Clerk Name Role Phone Renato MORRISON, Milton Loyola Primary Care Physicia n Encounter [facility] Date(s): 07/31/21 - 08/30/[address] [address]- Allergies, Adverse Reactions, Alerts Substance Reaction Severity Status traMADol tongue numbness--but she fell near [facility] Active Immunizations Given and Recorded [...] Patient Refuses 1Result Comment: NS DIL LOT [id number] EXP 11/2022 2Result Comment: DILUENT LOT#: [id number] EXP: 11/14 MFG: FRESENSIUS Medications albuterol 0.083% [...] 12:25:00 EST, Aerosol, Route to Pharmacy Electronically, [id number], [facility]/pharmacy #[id number], 152, cm, 06/01/20 9:54:00 EDT, Hei... [...] 10/06/20 12:25:00 EST, Route to Pharmacy Electronically, [facility]/pharmacy #[id number], 152, cm, 06/01/20 9:54:00 EDT, Height, 81, kg, 11/01/19 19:28:00 EDT, Dry Weight Start Date: 10/06/20 Status: Ordered atorvastatin 10 mg oral tablet 1 tablet = 10 mg, By Mouth, Daily, # 30 tablet, 5 Refills, Maintenance, 05/05/21 11:03:00 EDT, [facility]/pharmacy #[id number], Partial fill upon patient request if the prescription is for a schedule II opioid drug., 152, cm, 04/18/21 13:24:00 EDT, Height, 85.2, k... Start Date: 05/05/21 Stop Date: 11/01/21 Status: Ordered BD Ultra-Fine pen needles, BERTRAM 4 mm x 32 G BD Ultra-Fine pen needles, BERTRAM 4 mm x 32 G, See Instructions, # 150 each, Refills 11, Tot. [id number], Maintenance, Use for times a days with [...] Mouth, 2 times a day, with food Cambodian label, # 60 tablet, 3 Refills, Maintenance, 07/24/21 15:01:00 EST, [facility]/pharmacy #[id number], Partial fill upon patient request if the prescription is for a schedule II opioid drug., 152, cm, 06/27... Start Date: 07/24/21 Stop Date: 11/21/21 Status: Ordered ergocalciferol 77988 iu oral capsule 50,000 International_Units, 1, capsule, By Mouth, Every week, # 18 capsule, Refills 0, Tot. Refills0, Maintenance, 06/01/21 13:45:00 EDT, Route to Pharmacy Electronically, [facility]/pharmacy #[id number], Partial fill upon patient request if the prescription is f... Start Date: 06/01/21 Stop Date: 09/29/21 Status: Ordered Escitalopram = 20 mg, By Mouth, Daily, 0 Refills, Maintenance, 05/13/19 15:46:32 EDT Start Date: 05/13/19 Status: Ordered Eucerin Plus topical lotion 1 application, Topically, 2 times a day, PRN for dry skin, # 600 mL, 1 Refills, Maintenance, 06/01/21 13:51:00 EDT, Lotion, [facility]/pharmacy #[id number], Partial fill upon patient request if [...] 0 Refills, Maintenance, 01/03/20 13:01:00 EDT, [facility]/pharmacy #[id number], 152, cm, 11/01/19 19:28:00 EDT, Height, [...] 09/26/22 12:17:00 EST, 10/01/21 12:17:00 EST, Solution, [facility]/pharmacy #[id number], 152, cm, 05/04/21 13:50:00 EDT, Height, 85.2, kg, 04/18/21 13:24:00 EDT, Dry... Start Date: 10/01/21 Stop Date: 09/26/22 Status: Ordered loratadine 10 mg oral tablet See Instructions, ASAD BURKETT TODOS LOS MIRANDA, # 30 tablet, Refills 5, Maintenance, Instructions Replace Required Details, Route to Pharmacy Electronically, [facility] STORE [id number], 152, cm, 11/06/20 10:17:00 EDT, Height, 81, kg, 11/01/19 19:28:00 EDT, DrBonilla.. Start Date: 04/03/21 Status: Ordered meclizine 25 mg oral tablet 1 tablet = 25 mg, By Mouth, 3 times a day, PRN for dizziness, # 30 tablet, 0 Refills, Maintenance, 04/08/21 22:48:00 EDT, Tablet, [facility]/pharmacy #[id number], Partial fill upon patient request if [...] 10/26/20 16:17:00 EST, Route to Pharmacy Electronically, [facility]/pharmacy #[id number], 152, cm, 06/01... Start Date: 10/26/20 Stop Date: 10/21/21 Status: Ordered Tangentix COVID-19 Vaccine 30 mcg/0.3 mL preservative-free intramuscular [...] JULIAN, # 60 tablet, 4 Refills, Maintenance, [facility] [id number], 152, cm, 11/06/20 10:17:00 EDT, Height, 81, [...]
--- OUTSIDE RECORDS SUMMARY | 2023-07-21 13:08 | XMS_ITS | Continuity of Care Document ---
Author Name Unknown Organization [facility] Address [address] [place] [id number]- Care Team Providers Care Plasma Processing Technician Name Role Phone Renato MORRISON, Milton Loyola Primary Care Physicia n Encounter [facility] Date(s): 06/18/22 - 07/18/[address] [address]- Attending Physician: Jimenez Grant Admitting Physician: Jimenez Grant Referring Physician: AdmtrJimenez Allergies, Adverse Reactions, Alerts Substance Reaction Severity Status traMADol tongue numbness--but she fell near loc Active Immunizations Given and Recorded Vaccine Date Status Refusal Reason [id number] bivalent booster vax 07/17/22 Given influenza virus [...] Patient Refuses 1Result Comment: NS DIL LOT [id number] EXP 11/2022 2Result Comment: DILUENT LOT#: [id number] EXP: 11/14 MFG: FRESENSIUS Medications acetaminophen 325 mg oral capsule 1 capsule = 325 mg, By Mouth, Every 4 hours, PRN as needed for fever, not to exceed 4000 mg/day Print in Danish, # 90 capsule, 1 Refills, Acute 09/20/22 11:47:00 EST, 07/17/22 11:47:00 EST, Capsule,[facility]/pharmacy #[id number], Partial fill upon patient requ... Start Date: 07/17/22 Stop Date: 09/20/22 Status: Ordered albuterol 0.083% inhalation solution 3 mL = 2.5 mg, Inhalation, Every 6 hours, PRN for wheezing, # 25 each, 11 Refills, Maintenance, 05/24/22 14:28:00 EDT, Solution, [facility]/pharmacy #[id number], 149.86, cm, 05/24/22 13:53:00 EDT, Height, [...] = 5 mg, By Mouth, Daily, by [employer] records, # 30 tablet, 3 Refills, Maintenance, 07/04/22 11:38:00 EST, Tablet, [facility]/pharmacy #[id number], Partial fill upon patient request if the prescription is for a schedule II opioid drug., 149.8, cm, 07/04/22 11... Start Date: 07/04/22 Stop Date: 11/01/22 Status: Ordered Aspirin Low Dose 81 mg oral delayed release tablet See Instructions, ASAD BURKETT TODOS [place] MIRANDA by [employer] records continue, # 30 tablet, 11 Refills, 07/04/22 11:40:00 EST, [facility]/pharmacy #[id number], 149.8, cm, 07/04/22 11:20:00 EST, Height, 83.3, kg, 06/14/22 18:50:00 EDT, Dry Weight Start Date: 07/04/22 Status: Ordered atorvastatin 10 mg oral tablet See Instructions, ASAD KRYSTEN TABLETA MARIANNE MIRANDA, # 30 tablet, 11 Refills, 05/24/22 14:42:00 EDT, [facility]/pharmacy #[id number], 149.86, cm, 05/24/22 13:53:00 EDT, Height, 85.7, kg, 07/24/21 14:26:00 EST, Dry Weight Start Date: 05/24/22 Status: Ordered BD Ultra-Fine pen needles, BERTRAM 4 mm x 32 G BD Ultra-Fine pen needles, BERTRAM 4 mm x 32 G, See Instructions, # 150 each, Refills 11, Tot. [id number], Maintenance, Use for times a days with [...] Compound Start Date: 07/25/21 Status: Ordered ergocalciferol 45992 iu oral capsule See Instructions, TOME 1 CAPSULA POR VIA ORAL ONCE WEEKLY, # 4 capsule, Refills 4, Tot. Refills 4, 05/24/22 14:29:00 EDT, Instructions Replace Required Details, Route to Pharmacy Electronically, [facility]/pharmacy #[id number], 149.86, cm, 05/24/22 13:53:00 EDT, H... Start Date: 05/24/22 Status: Ordered Escitalopram = 20 mg, By Mouth, Daily, 0 Refills, Maintenance, 05/13/19 15:46:32 EDT Start Date: 05/13/19 Status: Ordered Eucerin Plus topical lotion 1 application, Topically, 2 times a day, PRN for dry skin, # 600 mL, 1 Refills, Maintenance, 05/24/22 14:28:00 EDT, Lotion, [facility]/pharmacy #[id number], Partial fill upon patient request if [...] 15 Unknown, 5 Refills, 05/24/22 14:29:00 EDT, [facility]/pharmacy #[id number], 149.86, cm, 05/24/22 13:53:00 EDT, Height, 85.7, kg, 07/24/21 14:26:00 EST, Dry Weight Start Date: 05/24/22 Status: Ordered Imitrex 50 mg oral tablet See Instructions, 1 tablet By Mouth at onset of headache. May repeat once in 2 hours. Not > 4/ week., # 9 tablet, 0 Refills, Maintenance, 01/03/20 13:01:00 EDT, [facility]/pharmacy #[id number], 152, cm, 11/01/19 19:28:00 EDT, Height, [...] 09/15/24 12:17:00 EST, 09/21/23 12:17:00 EST, Solution, [facility]/pharmacy #[id number], 149.86, cm, 05/24/22 13:53:00 EDT, Height, 85.7, kg, 07/24/21 14:26:00 EST,... Start Date: 09/21/23 Stop Date: 09/15/24 Status: Ordered loratadine 10 mg oral tablet See Instructions, ASAD MIRANDA, # 30 tablet, Refills 5, Tot. Refills 5, 05/24/2214:42:00 EDT, Instructions Replace Required Details, Route to Pharmacy Electronically, [facility]/pharmacy#[id number], 149.86, cm, 05/24/22 13:53:00 EDT, Height, 8... Start Date: 05/24/22 Status: Ordered meclizine 25 mg oral tablet 1 tablet = 25 mg, By Mouth, 3 times a day, PRN for dizziness, # 30 tablet, 0 Refills, Maintenance, 05/31/22 13:26:00 EDT, Tablet, [facility]/pharmacy #[id number], Partial fill upon patient request if [...] 05/31/22 13:26:00 EDT, Route to Pharmacy Electronically, [facility]/pharmacy #[id number], 149.86, cm, 10... Start Date: 05/31/22 [...] Replace Required Details, Route to Pharmacy Electronically, [id number]... Start Date: 03/28/22 Status: Ordered Pulse Oximeter [...] JULIAN, # 60 tablet, 4 Refills, Maintenance, [facility] [id number], 152, cm, 11/06/20 10:17:00 EDT, Height, 81, [...] Care Nurse Name: Milton Gross NP Position: [facility] Associate Professional Member Role: PCP Address: Address: [address] [place] [address]- Care Team Related Persons Name: YASMIN FISHER Address: [address] [address]
--- NOTE | 2023-07-21 13:18 | MHC.WMTHER ---
Intake Intake Visit Reasons: VIDEO F/U Allergies tramadol Allergy (Mild, Verified 07/28/23 10:05) WEAKNESS [facility] Medical History (Updated 07/21/23 @ 09:36 by Mayank Sanabria MD) Hypercholesterolemia HTN (hypertension) Diabetes Obesity (BMI 30-39.9) History of pulmonary embolism Surgical History Hx of hysterectomy Hx of section Family History Mother Diabetes Heart problem Hypertension Father Mental health disorder Daughter No problems noted. Son No problems noted. Son No problems noted. Social History Alcohol intake: never Patient Tobacco Use Status: Never used Tobacco Behavioral Health Assessment Weight Management Therapy Therapy Notes Details Pt presents for a follow up to finish assessment. Today we finished assessment and provider worked with client on strategies to manage the holidays and addressed behavioral changes needed for long-term success. We also discussed methods to manage thoughts re: food or cravings. Pt has been cleared today and won't need to follow up with me before surgery. Presenting Concerns Referral Source P Provider Reason for referral Completion of behavioral health assessment as part of process for weight-loss surgery. Precipitating Event Obesity, diabetes, sleep apnea. Living Situation Current Living Situation Rent At risk of losing current housing? No Satisfied with current living situation? No (Building is old and needs repairs.) Comments PT lives alone. Food/Weight/Diet Expectations of change Pt wants to achieve a healthy weight and not take medication anymore. Initial goal is to lose 10% of her weight before surgery, which is about 18 lbs. Ultimate weight goal: 166 lbs. before surgery History/Relationship with food -PT reports she doesn't eat a lot but, she has periods of emotional-eating. When depressed she doesn't eat and when anxious she overeats. -Examples of meal routine before starting program Breakfast @10/11am: 1 egg, 1 slide of bread, 1 diet soda Lunch: Skip Dinner @4/5pm: Rice, meat, beans, salad. But she varies. Sometimes multiple carbs in one meal. PT reports she hasn't started the meal plan proposed yet, besides dinner as indicated. History/Relationship with weight Weight has been a concerns for the past 15 years. History/Relationship with dieting cut on calories, but she gains all weight back once getting into regular habits. Binge Eating Do you frequently eat large amounts of food in short periods of time, not feeling physically hungry? No Do you feel out of control when you eat a large amount of food in a short period of time? No Do you eat large amounts of food rapidly and typically alone? No Night Eating Do you wake up at least once during the night to eat? No If you wake up in the night, do you find that it is necessary to eat something in order to fall back asleep? No Do you have little or no appetite in the morning and feel very hungry in the evening, often overeating between dinner and when you go to bed? Yes Social History Family history and relationship PT is . She has 3 adult children. Daughter in [place] and 2 sons in [place]. She has 7 grandkids and 4 great-grandkids. She has 9 siblings. Pt reports good family relationships. 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 Developmental history and status None. Social support Friends, a brother who has bariatric surgery. Community support Providers. Protestant/Spirituality PT is [employer]. But after Covid hasn't attended muslim anymore. Cultural/Ethnic information PT is from [place]. Moved to [place] 15 years ago. Pt is [place]ish-Speaking. Legal Involvement and History Current or historical involvement with the legal system? None. Education Highest grade completed 10th grade. Preferred learning style Auditory and Visual Currently enrolled in educational program? No Interested in further educational program? No Educational Interests/Skills none. Employment Employment Status Never Worked (Was a [employer].) Wants help to find employment? No Meaningful activities Crossword books, cellphone games, watch tv, Financial Situation Describe current financial situation Occasional struggle Financial assistance? Food [place] and [employer] Service Service? No Mental Health and Addiction Treatment Current/Past substance abuse? No Current/Past addictive behavior concerns? No Psychiatric history PT attends monthly counseling services and sees prescriber every 2 months at [facility] in [place]. Diagnosed depression, anxiety, panic attacks. Never hospitalized Denies SI/SA and/or any concern Re: self-harming/other-harm. Medical and Physical Health Summary Additional Medical History not covered in history None reported Sexual History concerns None reported Physical exam in the last year? Yes Pain Screening Current pain? Yes Pain in the last few months? Yes Comments Body aches/pains, knee pain. Medications Is the patient compliant with medications? Yes Does the patient have Perez Guardian in place? Not applicable Does the patient use complimentary health approaches? No Trauma/Abuse History History of trauma? No Questionnaires PHQ-9 Over the last 2 weeks, how often have you been bothered by any of the following problems? 1. Little interest or pleasure in doing things: not at all 2. Feeling down, depressed, or hopeless: not at all 3. Trouble falling or staying asleep, or sleeping too much: several days (problems falling asleep.) 4. Feeling tired or having little energy: several days (specially when has headaches or don't sleep well. ) 5. Poor appetite or overeating: not at all 6. Feeling bad about yourself - or that you are a failure or have let yourself or your family down: not at all 7. Trouble concentrating on things, such as reading the newspaper or watching television: not at all 8. Moving or speaking so slowly that other people could have noticed. Or the opposite - being so fidgety or restless that you have been moving around a lot more than usual: several days 9. Thoughts that you would be better off or of hurting yourself in some way: not at all Total score: 3 Depression Screening Interpretation: Negative Depression Screening Done: Yes 12551 - PHQ-9 Billing: Yes Source: Developed by Drs. Kam Laird, Gladis Arvizu, Pedro Luis Kat and colleagues, with an educational baltazar from [employer]. Binge Eating Scale Group 1 A. I don't feel self-conscious about my wt. or body size when I'm with others. B. I feel concerned about how I look to others, but it normally does not make me fell disappointed with myself C. I do get self-conscious about my appearance and wt. which makes me feel disappointed in myself. D. I feel very self-conscious about my wt. and frequently I feel intense shame and disgust for myself. I try to avoid social contacts because of my self-consciousness. Response Group 1: C Group 2 A. I don't have any difficulty eating slowly in the proper manner. B. Although I seem to gobble down foods, I don't end up feeling stuffed because of eating to much. C. At times, I tend to eat quickly and then, I feel uncomfortably full afterwards. D. I have the habit of bolting down my food, without really chewing it. When this happens I usually feel uncomfortably stuffed because I've eaten to much. Response Group 2: A Group 3 A. I feel capable to control my eating urges when I want to. B. I feel like I have failed to control my eating more than the average person. C. I feel utterly helpless when it comes to feeling in control of my eating urges. D. Because I feel so helpless about controlling my eating I have become very desperate about trying to get control. Response Group 3: B Group 4 A. I don't have the habit of eating when I'm bored. B. I sometimes eat when I'm bored, but often I'm able to get busy and get my mind off food. C. I have a regular habit of eating when I'm bored, but occasionally, I can use some other activity to get my mind off eating. D. I have a strong habit of eating when I'm bored. Nothing seems to help me breath the habit. Response Group 4: A Group 5 A. I'm usually physically hungry when I eat something. B. Occasionally, I eat something on impulse even though I really am not hungry. C. I have the regular habit of eating foods, that I might not really enjoy, to satisfy a hungry feeling even though physically, I don't need the food. D. Although I'm not physically hungry, I get a hungry feeling in my mouth that only seems to be satisfied when I eat a food, like sandwich, that fills my mouth. Sometimes, when I eat the food to satisfy my mouth hunger, I then spit the food out so I won't gain weight. Response Group 5: B (D - before/ ) Group 6 A. I don't feel any guilt or self-hate after I overeat. B. After I overeat, occasionally I feel guilt or self-hate. C. Almost all the time I experience strong guilt or self-hate after I overeat. Response Group 6: B Group 7 A. I don't lose total control of my eating when dieting even after periods when I overeat. B. Sometimes when I eat a forbidden food on a diet, I feel like I blew it and eat even more. C. Frequently, I have the habit of saying to myself, I've blown it now, why not go all the way, when I overeat on a diet. When that happens I eat more. D. I have a regular habit of starting a strict diets for myself but I break the diets by going on an eating binge. My life seems to be either a feast or famine. Response Group 7: A Group 8 A. I rarely eat so much food that I feel uncomfortably stuffed afterwards. B. Usually about once a month, I each such a quantity of food, I end up feeling very stuffed. C. I have regular periods during the month when I eat large amounts of food, either at mealtime or at snacks. D. I eat so much food that I regularly feel quite uncomfortable after eating and sometimes a bit nauseous. Response Group 8: A Group 9 A. My level of calorie intake does not go up very high or go down very low on a regular basis. B. Sometimes after I overeat, I will try to reduce my caloric intake to almost nothing to compensate for the excess calories I've eaten. C. I have a regular habit of overeating during the night. It seems that my routine is not to be hungry in the morning but overeat in the evening. D. In my adult years, I have had week-long periods where I practically starve myself. This follows periods when I overeat. It seems I live a life of either feast or famine. Response Group 9: A Group 10 A. I usually am able to stop eating when I want to. I know when enough is enough. B. Every so often, I experience a compulsion to eat which I can't seem to control. C. Frequently, I experience strong urges to eat which I seem unable to control, but at other times I can control my eating urges. D. I feel incapable of controlling urges to eat. I have a fear of not being able to stop eating voluntarily. Response Group 10: A Group 11 A. I don't have any problem stopping eating when I feel full. B. I usually can stop eating when I feel full but occasionally overeat leaving me feeling uncomfortably stuffed. C. I have a problem stopping eating once I start and usually I feel uncomfortably stuffed after I eat a meal. D. Because I have a problem not being able to stop eating when I want, I sometimes have to induce vomiting to relieve my stuffed feeling. Response Group 11: A Group 12 A. I seem to eat just as much when I'm with others, Family social gatherings as when I'm by myself. B. Sometimes, when I'm with other persons, I don't eat as much as I want to eat because I'm self-conscious about my eating. C. Frequently, I eat only a small amount of food when others are present, because I'm very embarrassed about my eating. D. I feel so ashamed about overeating that I pick times to overeat when I know no one will see me. I feel like a closet eater. Response Group 12: A Group 13 A. I eat three meals a day with only an occasional between meal snack. B. I eat 3 meals a day, but I also normally snack between meals. C. When I am snacking heavily, I get in the habit of skipping regular meals. D. There are regular periods when I seem to be continually eating, with no planned meals. Response Group 13: A Group 14 A. I don't think much about trying to control unwanted eating urges. B. At least some of the time, I feel my thoughts are pre-occupied with trying to control my eating urges. C. I feel that frequently I spend much time thinking about how much I ate or about trying not to eat anymore. D. It seems to me that most of my waking hours are pre-occupied by thoughts about eating or not eating. I feel like I'm constantly struggling not to eat. Response Group 14: B Group 15 A. I don't think about food a great deal. B. I have strong craving for food but they last only for brief periods of time. C. I have days when I can't seem to think about anything else but food. D. Most of my days seem to be pre-occupied with thoughts about food. I feel like I live to eat. Response Group 15: A Group 16 A. I usually know whether or not I'm physically hungry. I take the right portion of food to satisfy me. B. Occasionally, I feel uncertain about knowing whether or not I'm physically hungry. A these times it's hard to know how much food I should take to satisfy me. C. Even though I might know how many calories I should eat, I don't have any idea what is a normal amount of food for me. Response Group 16: B Binge Eating Score: 7 (Conflicting answers, will repeat next seema.) Score less than 17 Minimal Risk Score between 18-26 Moderate Risk Score between 27-46 High Risk Assessment & Plan Assessment & Plan (1) Depression, unspecified: Code(s): F32.A - Depression, unspecified Plan PT is cleared from standpoint. Advised to continue attending current MH treatment and ask therapist with support for Sx management and relapse prevention, as well of to learn grounding and mindfulness techniques. She can request a F/up with me if feeling she needs additional support. Telehealth Telehealth Location of provider rendering services: other Location of patient: address on file Patient Identification confirmed using: Name, : Yes Telehealth method: video Patient verbally consented to treatment: Yes Patient verbally consented to billing insurance company: Yes Patient informed of any privacy concerns related to visit: No Minutes spent on Phone/Video with Pt.: 45 Coding Level of Care Code Established Pt Tele Psytx 45 mins (48931) Patient Type Established Diagnoses Depression, unspecified F32.A
== END 2023-07-21 13:15 | disposition home or self-care (01) ==
LOC: HO.HBST 12:55
PROVIDERS: Visit Provider Counselor Mental Health
DX: F32.A Depression, unspecified (principal)
CPT/HCPCS: 90834

== ENCOUNTER 2023-07-28 09:57 | Outpatient (AMB) | payer OTHER, SELFPAY ==
--- NOTE | 2023-07-28 09:59 | MHC.OFFVISWM ---
Intake VS Expanded 07/28/23 10:11 BP 147/73 H Blood Pressure Location Rt brachial Blood Pressure Position Sitting Pulse 90 Pulse Source Pulse Oximeter Temp 97.2 F Temperature Source Temporal Artery Scan Pulse Oximetry 95 Oxygen Delivery Method Room Air Height 4 ft 11 in Weight 172 lb BMI 34.7 Body Fat % 41.4 Body Fat Mass 71.2 Fat Free Mass 100.8 Visceral Fat Rating 11.0 Body Water % 41.5 Body Water Mass 71.4 Muscle Mass/Score 95.6 Basal Metabolic Rate/Score 1,399 Intake Visit Reasons: (OV) F/U SWL Nurse Clinical Required: Yes Nurse Clinical Name: office cmi Allergies tramadol Allergy (Mild, Verified 07/28/23 10:05) WEAKNESS Medication List - Last Reconciled 07/28/23 by HUEY Guevara apixaban (Eliquis) 5 mg PO DAILY aspirin 81 mg PO DAILY atorvastatin 10 mg PO DAILY buspirone 7.5 mg PO BID ergocalciferol (vitamin D2) 1,250 mcg PO QWEEK escitalopram oxalate 20 mg PO DAILY insulin glargine (Lantus Solostar U-100 Insulin) 40 units subcut DAILY insulin lispro subcut metoprolol tartrate 25 mg PO BID HPI HPI Comments History of Present Illness Details The patient is a pleasant 53 year old female who returns to the clinic for pre-operative surgical weight loss management. They were last seen in the office on 07/01/23, recorded weight at that time was 176 pounds, with a BMI of 35.5. Today's weight is 172 pounds and BMI is 34.8. There has been a weight loss of 12.8 pounds since initiating the surgical weight loss program on 03/04/23 with a total body weight loss of 6.9 %. Pre op work up completed as follows: SWL classes:? 10/02 BH appts: f/u 06/19/23, missed, cleared 07/21/23? ? RD appts: f/u 06/19/23, missed, miussed 07/15/23, needs f/u Labs: 03/12/23 A1c: 8.5 H. pylori: 03/12/23-neg CXR: 03/12/23-nad EK03/12/23-normal ABD U/S: NS-03/19/23, 07/04/23-fatty liver UGI: RS for 07/30/23 She feels well and offers no complaints The patient reports she is following the meal plan. They also have not been communicating weekly and this was discussed with her The patient reports she had an appointment with cardiology on 07/21/23 for her issues w palpitations with activity. Scheduled for ECHO, Holter and stress test. Denies palpitations with treadmill. She was unable to exercise as she was awaiting appt with pulmonology for f/u from PE 06/25/22 after a surgery for her leg for venous insuff . She had f/u 05/22/23 and ok to do exercise. Current meal plan includes: 2 Premier Protein shakes ([employer], [employer], [employer]) First shake, (1 scoop in 8 oz low fat unsweetened almond milk) at 9am-11am Second shake, (1 scoop in 8 oz unsweetened almond milk) at 1pm-3pm Dinner at 5pm (7 forks of protein and 7 forks of salad/vegetables). 1 protein bar (Zone Perfect bars or Fulfil bars at [employer], [employer], or [employer]) at 7pm-9pm. Drinking 64 oz of water Current exercise plan includes: treadmill 4-5 days per week, 20-30 minutes, not tracking calories. [facility] Medical History (Updated 07/21/23 @ 09:36 by Mayank Sanabria MD) Hypercholesterolemia HTN (hypertension) Diabetes Obesity (BMI 30-39.9) History of pulmonary embolism Surgical History Hx of hysterectomy Hx of section Family History Mother Diabetes Heart problem Hypertension Father Mental health disorder Daughter No problems noted. Son No problems noted. Son No problems noted. Social History Alcohol intake: never Patient Tobacco Use Status: Never used Tobacco Review of Systems Const All systems reviewed & are unremarkable except as noted in HPI and below Physical Exam Const General: healthy appearing and no acute distress Resp Effort & Inspection: normal respiratory effort Auscultation: clear to auscultation bilaterally Cardio Rate: regular rate Rhythm: regular rhythm GI Auscultation: normal bowel sounds Extrem General: Yes normal to inspection Assessment & Plan Assessment & Plan (1) Obesity (BMI 30-39.9): Code(s): E66.9 - Obesity, unspecified Plan: change meal plan: 2 Premier Protein shakes ([employer], [employer], [employer]) First shake, (1 scoop in 8 oz low fat unsweetened almond milk) at 9am-11am Second shake, (1 scoop in 8 oz unsweetened almond milk) at 1pm-3pm Dinner at 5pm (7 forks of protein and 7 forks of salad/vegetables). 1/2 protein bar (Zone Perfect bars or Fulfil bars at [employer], [employer], or [employer]) at 7pm-9pm Increase exercise to a total of 2000 calories per week, 500 calories 4 times a week or 400 calories 5 times a week. Follow-up with dietary. Reminded of upcoming upper GI. Return to the office to see me in approximately 4 weeks. (2) Heart palpitations: Code(s): R00.2 - Palpitations Plan: Scheduled for echo, Holter, stress test Coding Level of Care Code Est Pt Level 3 (24728) Diagnoses Obesity (BMI 30-39.9) E66.9 Heart palpitations R00.2
[2023-07-28 10:11] VITALS: BP 147/73; PULSE 90; TEMP 36.2; O2SAT 95; BMI 34.7
== END 2023-07-28 10:37 | disposition home or self-care (01) ==
PROVIDERS: Visit Provider Physician Assistant Surgical
DX: E66.9 Obesity, unspecified (principal); Z68.34 Body mass index [BMI] 34.0-34.9, adult; R00.2 Palpitations
CPT/HCPCS: 99213

== ENCOUNTER → 2023-07-28 09:57 | Outpatient (BNVA) | payer OTHER, SELFPAY | PROVIDERS: Visit Provider Physician Assistant Surgical | DX: E66.9 Obesity, unspecified (principal); R00.2 Palpitations; Z68.34 Body mass index [BMI] 34.0-34.9, adult | CPT/HCPCS: 99212 ==

== ENCOUNTER 2023-07-30 09:26 | Outpatient (REF) | payer OTHER, SELFPAY | END 2023-07-30 09:27 | disposition home or self-care (01) | LOC: HO.XRAY 09:26 | PROVIDERS: Visit Provider Physician Assistant Surgical | DX: Z13.89 Encounter for screening for other disorder (principal) ==

== ENCOUNTER 2023-08-04 08:26 | Outpatient (REF) | payer OTHER, SELFPAY ==
--- NOTE | ~2023-08-04 | FL_ITS ---
EXAMINATION: XR FLUOROSCOPY UPPER GI WITH AIR CLINICAL INFORMATION: Preop evaluation prior to surgery COMPARISON: None TECHNIQUE: Fluoroscopic air contrast upper GI examination was performed utilizing standard techniques with thin and thick barium and effervescent granules. Numerous spot images were obtained. FINDINGS: There is moderate cricopharyngeal achalasia, with ballooning of the hypopharynx on swallow. Dual and single contrast images of the esophagus demonstrate normal caliber, contour, and mucosal pattern. No evidence of stricture, mass, or ulcerations identified. Nonpropulsive tertiary contractions are noted throughout the esophagus, consistent with esophageal dysmotility. Questionable small type I hiatal hernia is present. Gastroesophageal reflux is seen up to the thoracic inlet. Dual contrast and single contrast images of the stomach demonstrated normal contour and mucosal pattern without evidence of mass, ulceration, or other abnormality. Contrast freely passed into the gastric antrum and duodenal bulb without delay. Single and air-contrast images of the duodenal bulb demonstrate no abnormality. The duodenal sweep has a normal appearance, course, and mucosal fold appearance. The imaged proximal jejunum has a normal fold pattern and caliber. FLUOROSCOPY TIME: 2 minutes 44 seconds Number of Spot Images: 11 Number of Cine: 8 DOSE AREA PRODUCT: 2263 uGy-m2 (microgray-meter squared) FL/FL upper GI w air IMPRESSION: 1. Presbyesophagus. 2. Questionable small type I hiatal hernia. 3. Significant gastroesophageal reflux. 4. Moderate cricopharyngeal achalasia. This procedure was performed by Cuong Kaminski PA-C, and supervised by Dr. Alexander
== END 2023-08-04 08:27 | disposition home or self-care (01) ==
LOC: HO.XRAY 08:26
PROVIDERS: Visit Provider Physician Assistant Surgical
DX: E66.9 Obesity, unspecified (principal); E11.9 Type 2 diabetes mellitus without complications; E78.00 Pure hypercholesterolemia, unspecified; I10 Essential (primary) hypertension
CPT/HCPCS: 74246

== ENCOUNTER → 2023-08-04 08:27 | Outpatient (BNV) | payer OTHER, SELFPAY | PROVIDERS: Visit Provider Radiology Diagnostic Radiology | DX: Z01.818 Encounter for other preprocedural examination (principal) | CPT/HCPCS: 74246 ==

== ENCOUNTER 2023-08-11 11:02 | Outpatient (AMB) | payer OTHER, SELFPAY ==
--- NOTE | 2023-08-11 10:53 | MHC.AMNUTRGE ---
Intake Intake Visit Reasons: TV Follow Up SWL (SPA) Manufacturing Engineer Supervisor Required: Yes Manufacturing Engineer Supervisor Name: [id number] Information Interpreted: non-clinical & clinical Allergies tramadol Allergy (Mild, Verified 07/28/23 10:05) WEAKNESS HPI Nutrition Presentation Reason for consult elevated BMI Diet Assmnt Details Pt states she is doing well with the program, she likes the bars and shakes. has been consistent with the plan . She reports she is not struggling with anything 9am protein shake 1 scoop Premier powder in water 1-3pm shake apple 5pm meal 7-8pm protein bar SWl online classes: 11/30 but these were completed back in March . Will need to retake as she did not score well and would benefit from repeating them Previous weight loss methods attempted She reports first being concerned about her weight 5 years ago, highest weight to date was 195. Current weight is 184.8 with a BMI of 37.3. She has tried multiple methods of weight loss including fad diets without permanent results. She lives alone. She currently does not work. Dietary counseling reduction Diagnosis Nutrition problem #1 overweight/obesity As related to (etiology) #1 excess energy intake and physical inactivity As evidenced by (sign/symptom) #1 high BMI Monitoring/Goals Nutrition problem monitoring total energy intake, level of knowledge/skill, total PRO intake, total CHO intake and weight Outcome progress progressing Learning/Education Readiness to learn good Stages of change preparation Educational materials provided Yes Most Recent Diabetes Results: No Data to Display [facility] Medical History (Updated 07/21/23 @ 09:36 by Mayank Sanabria MD) Hypercholesterolemia HTN (hypertension) Diabetes Obesity (BMI 30-39.9) History of pulmonary embolism Surgical History Hx of hysterectomy Hx of section Family History Mother Diabetes Heart problem Hypertension Father Mental health disorder Daughter No problems noted. Son No problems noted. Son No problems noted. Social History Alcohol intake: never Patient Tobacco Use Status: Never used Tobacco Assessment & Plan Assessment & Plan (1) Obesity (BMI 30-39.9): Code(s): E66.9 - Obesity, unspecified Plan Nutrition follow-up once patient completes educational requirements Telehealth Telehealth Location of provider rendering services: practice address Location of patient: address on file Patient Identification confirmed using: Name, : Yes Telehealth method: voice only Patient verbally consented to treatment: Yes Patient verbally consented to billing insurance company: Yes Patient informed of any privacy concerns related to visit: Yes Minutes spent on Phone/Video with Pt.: 20 Coding Level of Care Code Nutr Indiv Subseq (47805) Diagnoses Obesity (BMI 30-39.9) E66.9 Time Spent (min) 15
== END 2023-08-11 11:18 | disposition home or self-care (01) ==
LOC: HO.HBS 11:02
PROVIDERS: Visit Provider Dietitian, Registered
DX: E66.9 Obesity, unspecified (principal)

== ENCOUNTER → 2023-08-11 11:02 | Outpatient (BNVA) | payer OTHER, SELFPAY | PROVIDERS: Visit Provider Dietitian, Registered | DX: E66.9 Obesity, unspecified (principal) | CPT/HCPCS: 97803 ==

== ENCOUNTER → 2023-08-19 08:54 | Outpatient (REF) | payer OTHER, SELFPAY ==
--- NOTE | 2023-08-19 09:02 | CA_ITS ---
Acquisition Time: 2023-08-19 10:13:58 Total Exercise Time: 00:05:01 Test Indications: CAD, PALPITATIONS Medications: SEE H Protocol: SUMA Max HR: 173 BPM 104% of Pred: 165 BPM Max BP: 152/082 mmHG Max Work Load: 7.0 METS Exercise stress test with exercise 5 min 1 sec of [place]a protocol, achieving 104% of MPHR, with mild sob, no chest discomfort, without arrythmia, with normotensive response to exercise, without EKG changes meeting criteria for ischemia. In recovery her breathing normalized. Test reviewed with Dr Sanabria Referred By: Mayank Sanabria Overread By: WESLEY ROSENBERG
--- NOTE | 2023-08-19 09:02 | HM_ITS ---
Conclusion: 1. Patient was monitored for total period of 3 days 2. Baseline was normal sinus with average heart of 79 beats per minute 3. No significant pauses or arrhythmias noted 4. No patient reported events MTDD
--- NOTE | 2023-08-19 09:02 | CA_ITS ---
Transthoracic Echocardiogram Patient (Last, First, Middle): Cindi Neumann, Gender: Female Date of : 1970 Age: 53 Procedure Date: 08/19/2023 Procedure Type: Transthoracic Echocardiogram Location: OP Height: 149.86 cm Weight: 78.02 kg BSA: 1.73 m2 Heart Rate: bpm BP: 120 / 60 mmHg Ruffling Hemmer Automatic: TO Referring MD: Mayank Sanabria MD Symptoms: I25.10 - Atherosclerotic heart disease of [place] coronary artery without... Study Quality: Fair/Contrast Conclusions: - The left ventricular systolic function is normal. The calculated ejection fraction is 60% by biplane method. - The inferolateral wall and basal inferior segment are hypokinetic. - No obvious valvular pathology seen on this study. Findings Procedure Information Contrast agent, definity, is being given per protocol without apparent complications. Left Ventricle Normal left ventricular cavity size. There is normal left ventricular wall thickness. The left ventricular systolic function is normal. The calculated ejection fraction is 60% by biplane method. There is no evidence of regional wall motion abnormalities. Diastolic function is normal for age. Wall Motion Rest Echo Findings The inferolateral wall and basal inferior segment are hypokinetic. Right Ventricle Normal right ventricular cavity size and systolic function. Atria Both atria are normal in size. Aortic Valve There is a normal trileaflet aortic valve. There is no aortic valve stenosis. There is no aortic valve regurgitation. Mitral Valve The mitral valve appears normal. There is no mitral valve regurgitation. There is no mitral valve stenosis. Pulmonic Valve The pulmonic valve is likely normal. Tricuspid Valve Normal tricuspid valve structure. There is no tricuspid valve regurgitation. Tricuspid regurgitation envelope is inadequate for calculation of right ventricular systolic pressure. Great Vessels The asc aorta is normal in size. Venous The inferior vena cava is normal in size and collapses greater than 50% with inspiration. Pericardium/Pleural There is no evidence of pericardial effusion. Prior Study Comparison No prior study available for comparison. Recommendations, Care & Conclusions No obvious valvular pathology seen on this study. Measurements 2D Linear Measurements IVSd: 0.96 0.6-0.9/0.6-1.0 cm LVIDd: 4.54 3.9-5.3/4.2-5.9 cm LVIDd Index: 2.62 2.4-3.2/2.2-3.1 cm/m2 LVIDs: 3.30 2.0-3.6 cm LVPWd: 0.89 0.7-1.1 cm LA Diam: 2.60 2.7-3.8/3.0-4.0 cm LAIDs Index: 1.50 1.5-2.3 cm/m2 LV Mass: 174.03 67-162/88-224 g LV Mass Index: 100.60 43-95/49-115 g/m2 LVOT Diam: 1.90 3.0+(-)1.3 cm 2D Systolic Function EF 4C: 59.30 >55% EF 2C: 60.30 >55% EF BiP: 59.80 >55% Mitral Valve MV Pk E: 0.66 MV PK A: 0.69 MV Decel Time: 186.00 E/A: 1.00 E'Lateral: 8.59 E'Medial: 6.74 E/E' Med: 9.90 E/E' Lat: 7.70 PHT: 54.00 MVA PHT: 4.07 Decel [place]: 3.57 Aortic Valve AoV Pk Wale: 1.48 AoV Mn Wale: 0.96 AoV VTI: 0.29 AoV Pk Grad: 9.00 Aov Mn Grad: 4.00 CELESTE Cont.VTI: 1.86 LVOT LVOT Pk Wale: 0.86 LVOT Mn Wale: 0.63 LVOT VTI: 0.19 LVOT Pk Grad: 3.00 LVOT Mn Grad: 2.00 LVOT Diam: 1.90 LVOT Area: 2.84 Diastolic Function MV Pk E: 0.66 MV Pk A: 0.69 E/A: 1.00 E'Medial: 6.74 E/E' Med: 9.90 E' Laterial: 8.59 E/E' Lat: 7.70 Right Ventricle TAPSE (mm): 22.20 TVS' Wale: 10.20 Tricuspid Valve RA Press: 3.00 Great Vessels Aorta Sinus of Valsalva: 2.83 2.0-3.5 cm Ao Asc: 2.70 2.1-3.4 cm Updated in Other Vendor System with Status of Final Mayank Sanabria MD electronically signed on 08/19/2023 11:02:32 AM with status of Final
== END ==
LOC: HO.CARD 08:54
PROVIDERS: Visit Provider Internal Medicine
DX: R07.2 Precordial pain (principal); I25.10 Atherosclerotic heart disease of native coronary artery without angina pectoris; R00.2 Palpitations
CPT/HCPCS: 93017; 93242; 93306; Q9957

== ENCOUNTER → 2023-08-19 09:02 | Outpatient (BNV) | payer OTHER, SELFPAY | PROVIDERS: Visit Provider Internal Medicine | DX: R00.2 Palpitations (principal) | CPT/HCPCS: 93016; 93018; 93244; 93306 ==

== ENCOUNTER 2023-08-22 11:24 | Outpatient (AMB) | payer OTHER, SELFPAY ==
--- NOTE | 2023-08-22 11:26 | MHC.OFFVISWM ---
Intake VS Expanded 08/22/23 11:36 BP 141/67 H Blood Pressure Location Rt brachial Blood Pressure Position Sitting Pulse 93 Pulse Source Pulse Oximeter Temp 96.0 F L Temperature Source Tympanic Pulse Oximetry 93 Oxygen Delivery Method Room Air Height 4 ft 11 in Weight 170 lb 6.4 oz BMI 34.4 Body Fat % 40.8 Body Fat Mass 69.4 Fat Free Mass 100.8 Visceral Fat Rating 11.0 Body Water % 42.0 Body Water Mass 71.4 Muscle Mass/Score 95.6 Basal Metabolic Rate/Score 1,396 Intake Visit Reasons: (OV) F/U SWL Foil Cutter Required: Yes Foil Cutter Name: [id number] Allergies tramadol Allergy (Mild, Verified 08/22/23 11:45) WEAKNESS Medication List - Last Reconciled 08/22/23 by HUEY Guevara apixaban (Eliquis) 5 mg PO DAILY aspirin 81 mg PO DAILY atorvastatin 10 mg PO DAILY buspirone 7.5 mg PO BID ergocalciferol (vitamin D2) 1,250 mcg PO QWEEK escitalopram oxalate 20 mg PO DAILY insulin glargine (Lantus Solostar U-100 Insulin) 40 units subcut DAILY insulin lispro subcut metoprolol tartrate 25 mg PO BID HPI HPI Comments History of Present Illness Details The patient is a pleasant 53 year old female who returns to the clinic for pre-operative surgical weight loss management. They were last seen in the office on 07/28/23, recorded weight at that time was 172 pounds, with a BMI of 34.7. Today's weight is 170.4 pounds and BMI is 34.4. There has been a weight loss of 14.4 pounds since initiating the surgical weight loss program on 03/04/23 with a total body weight loss of 7.8 %. Pre op work up completed as follows: SWL classes:? 11/30 BH appts: f/u 06/19/23, missed, cleared 07/21/23? ? RD appts: f/u 06/19/23, missed, missed 07/15/23, 08/11/23-needs f/u after classes Labs: 03/12/23 A1c: 8.5 H. pylori: 03/12/23-neg CXR: 03/12/23-nad EK03/12/23-normal ABD U/S: NS-03/19/23, 07/04/23-fatty liver UGI: 08/04/23-gerd, moderate cricipharyngeal achelasia She feels well and offers no complaints The patient reports she is following the meal plan. They also have not been communicating weekly and this was discussed with her The patient reports she had an appointment with cardiology on 07/21/23 for her issues w palpitations with activity. Scheduled for ECHO. Denies palpitations with treadmill but does get SOB with increased speed. She was previously unable to exercise as she was awaiting appt with pulmonology for f/u from PE 06/25/22 after a surgery for her leg for venous insuff . She had f/u 05/22/23 and ok to do exercise. She has a Holter monitor placed and today is day 3. She is scheduled to have it removed today. Additionally scheduled for coronary CTA. She also states increased anxiety and problems at home and she states she has been following the meal plan exactly. Current meal plan includes: 2 Premier Protein shakes ([employer], [employer], [employer]) First shake, (1 scoop in 8 oz low fat unsweetened almond milk) at 9am-11am Second shake, (1 scoop in 8 oz unsweetened almond milk) at 1pm-3pm Dinner at 5pm (7 forks of protein and 7 forks of salad/vegetables). 1/2 protein bar (Zone Perfect bars or Fulfil bars at [employer], [employer], or [employer]) at 7pm-9pm Current exercise plan includes: treadmill 4-5 days per week, 30 minutes, 200. Cannot go fast due to SOB. [facility] Medical History (Updated 07/21/23 @ 09:36 by Mayank Sanabria MD) Hypercholesterolemia HTN (hypertension) Diabetes Obesity (BMI 30-39.9) History of pulmonary embolism Surgical History Hx of hysterectomy Hx of section Family History Mother Diabetes Heart problem Hypertension Father Mental health disorder Daughter No problems noted. Son No problems noted. Son No problems noted. Social History Alcohol intake: never Patient Tobacco Use Status: Never used Tobacco Physical Exam Vital Signs: Last Vital Signs Temp 96.0 F L 08/22/23 11:36 Pulse 93 08/22/23 11:36 BP 141/67 H 08/22/23 11:36 Pulse Ox 93 08/22/23 11:36 Oxygen Delivery Method Room Air 08/22/23 11:36 Const General: healthy appearing and no acute distress Resp Effort & Inspection: normal respiratory effort Auscultation: clear to auscultation bilaterally Cardio Other: Holter monitor in place Rate: regular rate Rhythm: regular rhythm GI Auscultation: normal bowel sounds Extrem General: Yes normal to inspection Assessment & Plan Assessment & Plan (1) Obesity (BMI 30-39.9): Code(s): E66.9 - Obesity, unspecified Plan: Continue current meal plan. Encouraged to increase exercise to 5-6 days per week. We discussed the possibility that she may not be able to have bariatric surgery although it is unclear at this time. This certainly will be based upon risk stratification with Cardiology. She has a Holter in place and is scheduled for a coronary CTA in early August. Coding Level of Care Code Est Pt Level 3 (53972) Diagnoses Obesity (BMI 30-39.9) E66.9
[2023-08-22 11:36] VITALS: BP 141/67; PULSE 93; TEMP 35.6; O2SAT 93; BMI 34.4
== END 2023-08-22 12:03 | disposition home or self-care (01) ==
PROVIDERS: Visit Provider Physician Assistant Surgical
DX: E66.9 Obesity, unspecified (principal); Z68.34 Body mass index [BMI] 34.0-34.9, adult
CPT/HCPCS: 99213

== ENCOUNTER 2023-08-22 11:24 | Outpatient (REF) | payer OTHER, SELFPAY ==
[2023-08-22 13:03] LABS: Anion Gap 13 (12-20); Blood Urea Nitrogen 19 mg/dL (9-16); Calcium 9.8 mg/dL (8.4-10.2); Carbon Dioxide 28 mmol/L (22-29); Chloride 106 mmol/L (96-108); Estimated Glomerular Filt Rate > 60; Glucose Random 110 mg/dL (60-115); Potassium 3.9 mmol/L (3.3-5.1); Sodium 143 mmol/L (135-145)
== END 2023-08-22 11:25 | disposition home or self-care (01) ==
LOC: HO.LAB 11:24
PROVIDERS: Absent Provider Internal Medicine; PCP Nurse Practitioner Family; Visit Provider Physician Assistant Surgical
DX: Z01.810 Encounter for preprocedural cardiovascular examination (principal); I25.10 Atherosclerotic heart disease of native coronary artery without angina pectoris; I10 Essential (primary) hypertension; E66.9 Obesity, unspecified; K21.9 Gastro-esophageal reflux disease without esophagitis; K76.0 Fatty (change of) liver, not elsewhere classified; R13.19 Other dysphagia; Z68.34 Body mass index [BMI] 34.0-34.9, adult
CPT/HCPCS: 36415; 80048; 99212

== ENCOUNTER 2023-10-07 13:20 | Outpatient (AMB) | payer OTHER, SELFPAY ==
--- NOTE | 2023-10-07 12:25 | MHC.OFFVISWM ---
Intake VS Expanded 10/07/23 12:29 Height 4 ft 11 in Weight 170 lb 6.4 oz BMI 34.4 Intake Visit Reasons: (Telephone) F/U SWL Investigations Director Required: Yes Investigations Director Name: office cmi Allergies tramadol Allergy (Mild, Verified 08/22/23 11:45) WEAKNESS Medication List - Last Reconciled 10/07/23 by HUEY Guevara apixaban (Eliquis) 5 mg PO DAILY aspirin 81 mg PO DAILY atorvastatin 10 mg PO DAILY buspirone 7.5 mg PO BID ergocalciferol (vitamin D2) 1,250 mcg PO QWEEK escitalopram oxalate 20 mg PO DAILY insulin glargine (Lantus Solostar U-100 Insulin) 40 units subcut DAILY insulin lispro subcut metoprolol tartrate 25 mg PO BID HPI HPI Comments History of Present Illness Details The patient is a pleasant 53 year old female who returns to the clinic for pre-operative surgical weight loss management. They were last seen in the office on 08/22/23, recorded weight at that time was 170.4 pounds, with a BMI of 34.4. Today's weight is 170.4 pounds and BMI is 34.4. There has been a weight loss of 14.4 pounds since initiating the surgical weight loss program on 03/04/23 with a total body weight loss of 7.8 %. Pre op work up completed as follows: SWL classes:? 11/30 BH appts: f/u 06/19/23, missed, cleared 07/21/23? ? RD appts: f/u 06/19/23, missed, missed 07/15/23, 08/11/23-needs f/u after classes Labs: 03/12/23 A1c: 8.5 H. pylori: 03/12/23-neg CXR: 03/12/23-nad EK03/12/23-normal ABD U/S: NS-03/19/23, 07/04/23-fatty liver UGI: 08/04/23-gerd, moderate cricipharyngeal achelasia She weighs the same as end of July. She states because of her arthritis she cannot exercise and she also fell at her sons house 3 weeks ago and is in a lot of pain. The patient reports she is following the meal plan. They also have not been communicating weekly and this was discussed with her The patient reports she had an appointment with cardiology on 07/21/23 for her issues w palpitations with activity. Scheduled for ECHO. Denies palpitations with treadmill but does get SOB with increased speed. She was previously unable to exercise as she was awaiting appt with pulmonology for f/u from PE 06/25/22 after a surgery for her leg for venous insuff . She had f/u 05/22/23 and ok to do exercise. She has a Holter monitor placed and stress test 08/19/23, results: 1. Patient was monitored for total period of 3 days 2. Baseline was normal sinus with average heart of 79 beats per minute 3. No significant pauses or arrhythmias noted 4. No patient reported events Exercise stress test with exercise 5 min 1 sec of [place] protocol, achieving 104% of MPHR, with mild sob, no chest discomfort, without arrythmia, with normotensive response to exercise, without EKG changes meeting criteria for ischemia. In recovery her breathing normalized. Additionally scheduled for coronary CTA. This was done in August Current meal plan includes: 2 Premier Protein shakes First shake, (1 scoop in 8 oz low fat unsweetened almond milk) at 9am-11am Second shake, (1 scoop in 8 oz unsweetened almond milk) at 1pm-3pm Dinner at 5pm (7 forks of protein and 7 forks of salad/vegetables). 1/2 protein bar ([employer] Perfect bars or [employer] bars) at 7pm-9pm Current exercise plan includes: none in the last 3 weeks due to her fall treadmill 4-5 days per week, 30 minutes, 200. Cannot go fast due to SOB. [facility] Medical History (Updated 07/21/23 @ 09:36 by Mayank Sanabria MD) Hypercholesterolemia HTN (hypertension) Diabetes Obesity (BMI 30-39.9) History of pulmonary embolism Surgical History Hx of hysterectomy Hx of section Family History Mother Diabetes Heart problem Hypertension Father Mental health disorder Daughter No problems noted. Son No problems noted. Son No problems noted. Social History Alcohol intake: never Patient Tobacco Use Status: Never used Tobacco Assessment & Plan Assessment & Plan (1) Obesity (BMI 30-39.9): Code(s): E66.9 - Obesity, unspecified Plan: 2 Premier Protein shakes First shake, (1/2 scoop in 8 oz low fat unsweetened almond milk) at 9am-11am Second shake, (1/2 scoop in 8 oz unsweetened almond milk) at 1pm-3pm Dinner at 5pm (7 forks of protein and 7 forks of salad/vegetables). 1/2 protein bar ([employer] Perfect bars or [employer]fil bars) at 7pm-9pm needs f/u w cardiology for risk stratification needs f/u RD rtc 3 weeks Coding Level of Care Code Tele Est Pt Level 3 (27696) Diagnoses Obesity (BMI 30-39.9) E66.9 Time Spent (min) 20
[2023-10-07 12:29] VITALS: BMI 34.4
== END 2023-10-07 14:16 | disposition home or self-care (01) ==
LOC: HO.HBS 13:20
PROVIDERS: PCP Nurse Practitioner Family; Visit Provider Physician Assistant Surgical
DX: E66.9 Obesity, unspecified (principal)
CPT/HCPCS: 99213

== ENCOUNTER → 2023-10-07 13:20 | Outpatient (BNVA) | payer OTHER, SELFPAY | PROVIDERS: PCP Nurse Practitioner Family; Visit Provider Physician Assistant Surgical ==

== ENCOUNTER 2023-10-22 10:40 | Outpatient (AMB) | payer OTHER, SELFPAY ==
--- NOTE | 2023-10-22 10:36 | A.OFFVIS_ITS ---
Intake Intake Visit Reasons: TV F/U SWL Supervisor Component Assembler Required: Yes Supervisor Component Assembler Name: [email or web address] [id number] Information Interpreted: non-clinical & clinical Allergies tramadol Allergy (Mild, Verified 08/22/23 11:45) WEAKNESS HPI Nutrition Diet Assmnt Details pt was in the grocery store at time of appointment She did not complete online classes Most Recent Diabetes Results: Creatinine 0.79 mg/dL (0.5-1.4) 08/22/23 Blood Urea Nitrogen 19 mg/dL (9-16) H 08/22/23 Sodium 143 mmol/L (135-145) 08/22/23 Potassium 3.9 mmol/L (3.3-5.1) 08/22/23 Chloride 106 mmol/L (96-108) 08/22/23 Carbon Dioxide 28 mmol/L (22-29) 08/22/23 Calcium 9.8 mg/dL (8.4-10.2) 08/22/23 [facility] Medical History (Updated 07/21/23 @ 09:36 by Mayank Sanabria MD) Hypercholesterolemia HTN (hypertension) Diabetes Obesity (BMI 30-39.9) History of pulmonary embolism Surgical History Hx of hysterectomy Hx of section Family History Mother Diabetes Heart problem Hypertension Father Mental health disorder Daughter No problems noted. Son No problems noted. Son No problems noted. Social History Alcohol intake: never Patient Tobacco Use Status: Never used Tobacco Assessment & Plan Assessment & Plan (1) Obesity (BMI 30-39.9): Code(s): E66.9 - Obesity, unspecified Plan will be seen again when she finishes her classes. Needs to be in a private location for next appt. Coding Level of Care Code Nutr Indiv Subseq (30535) Diagnoses Obesity (BMI 30-39.9) E66.9 Time Spent (min) 10
== END 2023-10-22 10:41 | disposition home or self-care (01) ==
LOC: HO.HBS 10:40
PROVIDERS: PCP Nurse Practitioner Family; Visit Provider Dietitian, Registered
DX: E66.9 Obesity, unspecified (principal)

== ENCOUNTER → 2023-10-22 10:40 | Outpatient (BNVA) | payer OTHER, SELFPAY | PROVIDERS: PCP Nurse Practitioner Family; Visit Provider Dietitian, Registered | DX: E66.9 Obesity, unspecified (principal) | CPT/HCPCS: 97803 ==

== ENCOUNTER 2023-10-27 09:42 | Outpatient (AMB) | payer OTHER, SELFPAY ==
[2023-10-27 09:44] VITALS: BP 144/74; PULSE 78; BMI 34.5
--- NOTE | 2023-10-27 09:44 | MHC.OFFVIS ---
Intake Vital Signs 10/27/23 09:44 Height 4 ft 11 in Weight 171 lb 1.259 oz BMI 34.5 BP 144/74 H Blood Pressure Location Lt brachial Position Sitting Pulse 78 Pulse Source Pulse Oximeter Intake Visit Reasons: f/up ett/ holter/ echo/ HS Customer Support Manager Required: Yes Customer Support Manager Language: Occitan Allergies tramadol Allergy (Mild, Verified 10/27/23 09:47) WEAKNESS Medication List - Last Reconciled 10/27/23 by Katie Lockett NP-C aspirin 81 mg PO DAILY atorvastatin 10 mg PO DAILY buspirone 7.5 mg PO BID ergocalciferol (vitamin D2) 1,250 mcg PO QWEEK escitalopram oxalate 20 mg PO DAILY insulin glargine (Lantus Solostar U-100 Insulin) 40 units subcut DAILY insulin lispro subcut metoprolol tartrate 25 mg PO BID HPI f/up ett/ holter/ echo/ HS HPI Details Cindi is a 53-year-old female with past medical history of obesity, hypertension, hyperlipidemia, diabetes, sleep apnea who reported heart palpitations. She underwent an echocardiogram, stress test and Holter monitor and now presents for follow-up. Today she reports that she can feel her heart beating hard and fast when she does physical activity. She denies feeling this symptom at rest. No lightheadedness, presyncope, syncope, falls. No chest discomfort at rest or with activity. No shortness of breath, PND, orthopnea or edema. She is in the bariatric program is requesting preop clearance for surgery. FORMERLY [facility], [facility] Medical History Hypercholesterolemia HTN (hypertension) Diabetes Obesity (BMI 30-39.9) History of pulmonary embolism Surgical History Hx of hysterectomy Hx of section Family History Mother Diabetes Heart problem Hypertension Father Mental health disorder Daughter No problems noted. Son No problems noted. Son No problems noted. Social History Alcohol intake: never Patient Tobacco Use Status: Never used Tobacco Review of Systems Const All systems reviewed & are unremarkable except as noted in HPI and below ENT Denies dizziness Card Denies chest pain, Denies chest pain at rest, Denies chest pain with activity, Denies rapid heart rate, Denies pedal edema, Denies edema, Denies leg edema, Denies lightheadedness, Denies palpitations, Denies dyspnea, Reports dyspnea on exertion and Denies orthopnea Resp Denies cough, Denies dyspnea and Reports dyspnea on exertion GI Denies hematochezia and Denies change in stool character Musc Denies abnormal gait, Denies limited range of motion, Denies muscle cramps, Denies muscle weakness, Denies numbness, Denies radiating pain into limb, Denies stiffness and Denies tingling Neuro Denies abnormal gait, Denies dizziness, Denies numbness and Denies tingling Endo Denies palpitations Physical Exam Vital Signs: Last Vital Signs Pulse 78 10/27/23 09:44 BP 144/74 H 10/27/23 09:44 BMI result Body Mass Index 34.5 Const General: cooperative, healthy appearing, comfortable and no acute distress Orientation/consciousness: patient oriented x3 Neck Neck: Yes normal visual inspection and Yes no JVD Resp Effort & Inspection: normal respiratory effort Auscultation: clear to auscultation bilaterally, no crackles, no rales, no rhonchi and no wheezes Cardio Jugular venous distension: no JVD Rate: regular rate Rhythm: regular rhythm Heart sounds: S1 normal heart sound present, S2 normal heart sound present, no murmurs and no rubs Neuro General: patient oriented x3 Extrem General: Yes normal to inspection and No no pedal edema Psych Appearance: grossly normal Mental Status: mental status grossly normal Speech and movement: Normal speech and movement present Assessment & Plan Assessment & Plan (1) Heart palpitations: Code(s): R00.2 - Palpitations Plan: Report of heart palpitations. She can feel her heart beating fast and hard when she does physical activity. No concerning heart palpitations at rest. An echocardiogram done 08/19/2023 showed EF 60%, inferior lateral and basal inferior hypokinetic. A Holter monitor done 08/19/2023 for 3 days showed sinus rhythm with average heart rate 79, no significant pauses or. An exercise stress test done 08/19/2023 with 5 minutes of exercise mild shortness of breath, no chest discomfort, no EKG changes of ischemia. Due to the wall motion abnormality on the echocardiogram she underwent a CTA of the coronary arteries done on 08/27/2023 showing no significant CAD. Today she continues to report that her heart beats fast and hard with physical activity. Informed her that this symptom is normal. She may be deconditioned and increasing her physical activity may help. Instructed on good hydration and limiting caffeinated beverages. Offered reassurance. Cardiology follow-up as needed. (2) HTN (hypertension): Code(s): I10 - Essential (primary) hypertension Plan: Mildly elevated this visit. She is currently working on weight loss and plans to undergo bariatric surgery in the near future. Will continue on current metoprolol dose. (3) Obesity (BMI 30-39.9): Code(s): E66.9 - Obesity, unspecified Plan: As above. [place] [facility] [place] (4) Preop cardiovascular exam: Code(s): Z01.810 - Encounter for preprocedural cardiovascular examination Plan: Preop for bariatric surgery, no date yet. Patient is low cardiac risk to undergo this procedure. Call/consult Cardiology if needed. Plan Time spent on chart review, documentation, interview and assessment Coding Level of Care Code Est Pt Level 4 (03435) Diagnoses Heart palpitations R00.2 HTN (hypertension) I10 Obesity (BMI 30-39.9) E66.9 Preop cardiovascular exam Z01.810 Time Spent (min) 28
== END 2023-10-27 10:15 | disposition home or self-care (01) ==
PROVIDERS: PCP Nurse Practitioner Family; Visit Provider Nurse Practitioner Family
DX: R00.2 Palpitations (principal); I10 Essential (primary) hypertension; E66.9 Obesity, unspecified; Z01.810 Encounter for preprocedural cardiovascular examination
CPT/HCPCS: 99214

== ENCOUNTER → 2023-10-27 09:42 | Outpatient (BNVA) | payer OTHER, SELFPAY | PROVIDERS: PCP Nurse Practitioner Family; Visit Provider Nurse Practitioner Family | DX: Z01.810 Encounter for preprocedural cardiovascular examination (principal); R00.2 Palpitations; I10 Essential (primary) hypertension; E66.9 Obesity, unspecified; Z68.34 Body mass index [BMI] 34.0-34.9, adult | CPT/HCPCS: 99212 ==

== ENCOUNTER 2023-11-12 10:29 | Outpatient (AMB) | payer OTHER, SELFPAY ==
--- NOTE | 2023-11-12 11:17 | A.OFFVIS_ITS ---
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 They were last seen in the office on 10/07/23, recorded weight at that time was 170.4 pounds, with a BMI of 34.4. Today's weight is 165.4 pounds and BMI is 33.4. There has been a weight loss of 19.4 pounds since initiating the surgical weight loss program on 03/04/23 with a total body weight loss of 10.4 %. Pre op work up completed as follows: SWL classes:? 11/30 BH appts: f/u 06/19/23, missed, cleared 07/21/23? ? RD appts: f/u 06/19/23, missed, missed 07/15/23, 08/11/23-needs f/u after classes Labs: 03/12/23 A1c: 8.5 H. pylori: 03/12/23-neg CXR: 03/12/23-nad EK03/12/23-normal ABD U/S: NS-03/19/23, 07/04/23-fatty liver UGI: 08/04/23-gerd, moderate cricipharyngeal achelasia The patient reports she is following the meal plan. They also have not been communicating weekly and this was discussed with her The patient reports she had an appointment with cardiology on 10/27/23 as a follow-up to her concerns regarding palpitations. She had multiple cardiac studies including an echocardiogram, Holter monitor, coronary CTA and has been cleared for exercise and considered low risk for bariatric surgery. She was previously unable to exercise as she was awaiting appt with pulmonology for f/u from PE 06/25/22 after a surgery for her leg for venous insuff . She had f/u 05/22/23 and ok to do exercise. She had a Holter monitor placed and stress test 08/19/23, results: 1. Patient was monitored for total perio d of 3 days 2. Baseline was normal sinus with averag e heart of 79 beats per minute 3. No significant pauses or arrhythmias noted 4. No patient reported events Exercise stress test with exercise 5 min 1 sec of Praveen protocol, achieving 104% of MPHR, with mild sob, no chest di scomfort, without arrythmia, with normotensive response to exercise, without EKG changes meeting criteria for ischemia. In recovery her breathing normalized. Additionally scheduled for coronary CTA. This was done 08/27/23 with no significant CAD Current meal plan includes: 2 Premier Protein shakes First shake, (1/2 scoop in 8 oz low fat unsweetened almond milk) at 9am-11am Second shake, (1/2 scoop in 8 oz unsweetened almond milk) at 1pm-3pm Dinner at 5pm (7 forks of protein and 7 forks of salad/vegetables). 1/2 protein bar (Zone Perfect bars or Fu lfil bars) at 7pm-9pm drinking 64 oz water Current exercise plan includes: treadmill 3 days per week, 30 minutes,difficulty doing more due to neuropathy, 200 eliseo. PFSH Medical History Hypercholesterolemia HTN (hypertension) Diabetes Obesity (BMI 30-39.9) History of pulmonary embolism Surgical History Hx of hysterectomy Hx of section Family History Mother Diabetes Heart problem Hypertension Father Mental health disorder Daughter No problems noted. Son No problems noted. Son No problems noted. Social History Alcohol intake: never Patient Tobacco Use Status: Never used Tobacco Physical Exam Vital Signs: Last Vital Signs Temp 96.8 F 11/12/23 11:25 Pulse 92 11/12/23 11:25 BP 156/86 H 11/12/23 11:25 Pulse Ox 92 11/12/23 11:25 Oxygen Delivery Method Room Air 11/12/23 11:25 BMI result Body Mass Index 33.4 Const General: healthy appearing and no acute distress Resp Effort & Inspection: normal respiratory effort Auscultation: clear to auscultation bilaterally Cardio Rate: regular rate Rhythm: regular rhythm GI Auscultation: normal bowel sounds Extrem General: Yes normal to inspection Assessment & Plan Assessment & Plan (1) Obesity (BMI 30-39.9): Code(s): E66.9 - Obesity, unspecified Plan: Making progress overall. We will continue current meal plan as she is now following it very closely. I encouraged her to increase her exercises she is able. She states that she has peripheral neuropathy and this causes discomfort with treadmill, I suggested utilizing a stationary bike to see if that is better tolerated. She states that she will try. She is completed her preoperative testing and has been seen by Cardiology with assessment of low cardiac risk for bariatric surgery. She does need to follow-up with Dia regarding the education from our dietitian and this will be scheduled. We will refer her to Dr. Lyles for continued preoperative care. Coding Level of Care Code Est Pt Level 3 (61932) Diagnoses Obesity (BMI 30-39.9) E66.9
[2023-11-12 11:25] VITALS: BP 156/86; PULSE 92; TEMP 36; O2SAT 92; BMI 33.4
== END 2023-11-12 13:30 | disposition home or self-care (01) ==
PROVIDERS: PCP Nurse Practitioner Family; Visit Provider Physician Assistant Surgical
DX: E66.9 Obesity, unspecified (principal); Z68.33 Body mass index [BMI] 33.0-33.9, adult
CPT/HCPCS: 99213

== ENCOUNTER → 2023-11-12 10:29 | Outpatient (BNVA) | payer OTHER, SELFPAY | PROVIDERS: PCP Nurse Practitioner Family; Visit Provider Physician Assistant Surgical | DX: E66.9 Obesity, unspecified (principal); K76.0 Fatty (change of) liver, not elsewhere classified; K21.9 Gastro-esophageal reflux disease without esophagitis; R13.19 Other dysphagia; Z68.33 Body mass index [BMI] 33.0-33.9, adult; Z71.3 Dietary counseling and surveillance | CPT/HCPCS: 99212 ==

== ENCOUNTER 2023-11-18 10:47 | Outpatient (AMB) | payer OTHER, SELFPAY ==
--- NOTE | 2023-11-18 10:44 | MHC.AMNUTRGE ---
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 has been consistent with the plan . She reports she is not struggling with anything 9am protein shake 1 scoop Premier powder in water 1-3pm shake apple 5pm meal 7-8pm protein bar SWl online classes: 11/30 but these were completed back in March. Did not score well so we discussed retaking it. Her classes were reset, but she did not complete any. Previous weight loss methods attempted She reports first being concerned about her weight 5 years ago, highest weight to date was 195. Current weight is 184.8 with a BMI of 37.3. She has tried multiple methods of weight loss including fad diets without permanent results. She lives alone. She currently does not work. Dietary counseling reduction Diagnosis Nutrition problem #1 overweight/obesity As related to (etiology) #1 excess energy intake and physical inactivity As evidenced by (sign/symptom) #1 high BMI Monitoring/Goals Nutrition problem monitoring total energy intake, level of knowledge/skill, total PRO intake, total CHO intake and weight Outcome progress progressing Learning/Education Readiness to learn good Stages of change preparation Educational materials provided Yes Most Recent Diabetes Results: Creatinine 0.79 mg/dL (0.5-1.4) 08/22/23 Blood Urea Nitrogen 19 mg/dL (9-16) H 08/22/23 Sodium 143 mmol/L (135-145) 08/22/23 Potassium 3.9 mmol/L (3.3-5.1) 08/22/23 Chloride 106 mmol/L (96-108) 08/22/23 Carbon Dioxide 28 mmol/L (22-29) 08/22/23 Calcium 9.8 mg/dL (8.4-10.2) 08/22/23 FORMERLY [facility] Medical History Hypercholesterolemia HTN (hypertension) Diabetes Obesity (BMI 30-39.9) History of pulmonary embolism Surgical History Hx of hysterectomy Hx of section Family History Mother Diabetes Heart problem Hypertension Father Mental health disorder Daughter No problems noted. Son No problems noted. Son No problems noted. Social History Alcohol intake: never Patient Tobacco Use Status: Never used Tobacco Assessment & Plan Assessment & Plan (1) Obesity (BMI 30-39.9): Code(s): E66.9 - Obesity, unspecified Plan pt will need to be seen once she completes educational requirements Telehealth Telehealth Location of provider rendering services: practice address Location of patient: address on file Patient Identification confirmed using: Name, : Yes Telehealth method: voice only Patient verbally consented to treatment: Yes Patient verbally consented to billing insurance company: Yes Patient informed of any privacy concerns related to visit: Yes Minutes spent on Phone/Video with Pt.: 20 Coding Level of Care Code Nutr Indiv Subseq (41351) Diagnoses Obesity (BMI 30-39.9) E66.9 Time Spent (min) 20
== END 2023-11-18 13:20 | disposition home or self-care (01) ==
LOC: HO.HBS 10:47
PROVIDERS: PCP Nurse Practitioner Family; Visit Provider Dietitian, Registered
DX: E66.9 Obesity, unspecified (principal)

== ENCOUNTER → 2023-11-18 10:47 | Outpatient (BNVA) | payer OTHER, SELFPAY | PROVIDERS: PCP Nurse Practitioner Family; Visit Provider Dietitian, Registered | DX: E66.9 Obesity, unspecified (principal) | CPT/HCPCS: 97803 ==

== ENCOUNTER 2023-12-22 08:58 | Outpatient (AMB) | payer OTHER, SELFPAY ==
--- NOTE | 2023-12-22 11:36 | A.OFFVIS_ITS ---
VS Expanded 12/22/23 11:54 Height 4 ft 11 in Weight 166 lb BMI 33.5 Intake Visit Reasons: TV Consult/Transfer Giovanni *DIGITAL DATA ANALYST* Allergies tramadol Allergy (Mild, Verified 12/22/23 11:36) WEAKNESS Medication List - Last Reconciled 12/22/23 by Werner Lyles MD aspirin 81 mg PO DAILY atorvastatin 10 mg PO DAILY buspirone 7.5 mg PO BID ergocalciferol (vitamin D2) 1,250 mcg PO QWEEK escitalopram oxalate 20 mg PO DAILY insulin glargine (Lantus Solostar U-100 Insulin) 40 units subcut DAILY insulin lispro subcut metoprolol tartrate 25 mg PO BID sulindac 200 mg PO BID HPI HPI TV Consult/Transfer Giovanni RodriguezDIGITAL DATA ANALYST*: Details: Start time: 11.15am, End time: 12.01pm ?I spent 41 minutes speaking with the patient on the phone plus an additional 5 minutes reviewing and updating records for a total of 46 minutes HPI Comments Details: Overall weight loss: 12.2lbs, or 6.85% TBWL Is doing 2 Premier powdered shakes (1/2 scoop in almond milk), one apple, half Zone Perfect protein bar and one meal (7 forks of meat and 7 forks of salad of vegetables) PFSH Medical History (Updated 12/22/23 @ 11:45 by Werner Lyles MD) Anxiety Depression Insulin dependent type 2 diabetes mellitus Hypercholesterolemia HTN (hypertension) Diabetes Obesity (BMI 30-39.9) History of pulmonary embolism Surgical History (Updated 12/22/23 @ 11:45 by Werner Lyles MD) H/O vein stripping Hx of hysterectomy Hx of section Family History Mother Diabetes Heart problem Hypertension Father Mental health disorder Daughter No problems noted. Son No problems noted. Son No problems noted. Social History Alcohol intake: never Patient Tobacco Use Status: Never used Tobacco Telehealth Telehealth Telehealth Platform: Telephone Location of provider rendering services: practice address Location of patient: address on file Patient Identification confirmed using: Name, : Yes Telehealth method: voice only Patient verbally consented to treatment: Yes Patient verbally consented to billing insurance company: Yes Patient informed of any privacy concerns related to visit: Yes Minutes spent on Phone/Video with Pt.: 46 Assessment & Plan Assessment & Plan (1) Obesity (BMI 30-39.9): Code(s): E66.9 - Obesity, unspecified Category: Medical Plan: 1. Plan for lap sleeve gastrectomy including upper GI endoscopy. All tests has been completed and reviewed and the patient is cleared for the surgery. ?If diaphragmatic or ventral hernias are present at time of surgery, these will be repaired laparoscopically as well. Risks and complications were discussed in detail including possible conversion to an open procedure, anastomotic leak, bleeding requiring transfusion, small bowel obstruction, , DVT and pulmonary embolism, cardiac, or pulmonary complications, as terminal operations supervisor complications such as anastomotic ulcer, insufficient weight loss and vitamin deficiencies. I emphasized the importance of close follow-up, adherence to instructions and good communication. So far she has proven to be an excellent communicator and very compliant with all our directions accomplishing a great weight loss. I believe that she is an excellent candidate and she is ready. 2. The patient participated in a structured preoperative lifestyle intervention program supervised by a physician the 9 months preceding the surgical procedure. The lifestyle intervention included a structured nutritional plan with a specific daily protein intake goal, an exercise plan with a 2000 calorie burn weekly goal, weekly behavior modification guidance and completion of eight 1- hour online nutritional classes and passing successfully the corresponding quizzes. Adherence to preoperative care plan was demonstrated by completing an extensive preoperative work-up. Program participation was demonstrated by completing 12 visits with our medical team and by sharing weekly weight measurements weekly for 9 consecutive months via an approved body composition scale. Compliance to the lifestyle intervention was demonstrated by achieving a 12.2lbs weight-loss or 6.85% total body weight loss (TBWL). No medications were used to achieve this weight loss. 3. Please change nutritional plan to 2 Premier protein shakes (HALF scoop EACH in 8oz almond milk) at 8am-10am and 11am-1pm, one Zone Perfect protein bar at 2pm-4pm, dinner at 5pm (7 forks of protein and 7 forks of salad or vegetables) AND one more Zone Perfect protein bar at 7pm-9pm 4. Do the treadmill daily and track calories with a goal of burning 300 calories per day. Let me know if the treadmill inclines and shows the speed 5. Stop Lispro. Continue the Lantus 37U per day. Check your blood sugar daily and let me know if it is less than 100 or over 150 6. Send me your weight measurements tomorrow morning and then weekly after that at the same day
[2023-12-22 11:54] VITALS: BMI 33.5
== END 2023-12-22 12:02 | disposition home or self-care (01) ==
LOC: HO.HBS 08:58
PROVIDERS: PCP Nurse Practitioner Family; Visit Provider Surgery
DX: E66.9 Obesity, unspecified (principal)
CPT/HCPCS: 99215

== ENCOUNTER → 2023-12-22 08:58 | Outpatient (BNVA) | payer OTHER, SELFPAY | PROVIDERS: PCP Nurse Practitioner Family; Visit Provider Surgery ==

== ENCOUNTER 2024-01-12 08:01 | Outpatient (AMB) | payer OTHER, SELFPAY ==
--- NOTE | 2024-01-11 14:52 | MHC.OFFVISWM ---
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* Allergies tramadol Allergy (Mild, Verified 12/22/23 11:36) WEAKNESS Medication List - Last Reconciled 01/11/24 by Werner Lyles MD aspirin 81 mg PO DAILY atorvastatin 10 mg PO DAILY buspirone 7.5 mg PO BID ergocalciferol (vitamin D2) 1,250 mcg PO QWEEK escitalopram oxalate 20 mg PO DAILY insulin glargine (Lantus Solostar U-100 Insulin) 40 units subcut DAILY insulin lispro subcut metoprolol tartrate 25 mg PO BID ondansetron 4 mg PO Q6H pantoprazole 40 mg PO DAILY polyethylene glycol 3350 17 grams PO DAILY sucralfate 10 mL PO BID sulindac 200 mg PO BID HPI HPI TV Pre Op LSG 01/22/24 *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 SQL DEVELOPER*: Details: Start time: 12.16pm, End time: 12.46pm ?I spent 25 minutes speaking with the patient on the phone plus an additional 5 minutes reviewing and updating records for a total of 30 minutes HPI Comments Details: Overall weight loss: 14.2lbs, or 8% TBWL Is doing 2 Premier powdered shakes (1/2 scoop in almond milk), one apple, half Zone Perfect protein bar and one meal (7 forks of meat and 7 forks of salad of vegetables) PFSH Medical History (Updated 12/22/23 @ 11:45 by Werner Lyles MD) Anxiety Depression Insulin dependent type 2 diabetes mellitus Hypercholesterolemia HTN (hypertension) Diabetes Obesity (BMI 30-39.9) History of pulmonary embolism Surgical History (Updated 12/22/23 @ 11:45 by Werner Lyles MD) H/O vein stripping Hx of hysterectomy Hx of section Family History Mother Diabetes Heart problem Hypertension Father Mental health disorder Daughter No problems noted. Son No problems noted. Son No problems noted. Social History Alcohol intake: never Patient Tobacco Use Status: Never used Tobacco Physical Exam Vital Signs: BMI result Body Mass Index 33.1 Telehealth Telehealth Telehealth Platform: Telephone Location of provider rendering services: practice address Location of patient: address on file Patient Identification confirmed using: Name, : Yes Telehealth method: voice only Patient verbally consented to treatment: Yes Patient verbally consented to billing insurance company: Yes Patient informed of any privacy concerns related to visit: Yes Minutes spent on Phone/Video with Pt.: 30 Assessment & Plan Assessment & Plan (1) Obesity (BMI 30-39.9): Code(s): E66.9 - Obesity, unspecified Category: Medical Plan: 1. Plan for lap sleeve gastrectomy including upper GI endoscopy. All tests has been completed and reviewed and the patient is cleared for the surgery. ?If diaphragmatic or ventral hernias are present at time of surgery, these will be repaired laparoscopically as well. Risks and complications were discussed in detail including possible conversion to an open procedure, anastomotic leak, bleeding requiring transfusion, small bowel obstruction, , DVT and pulmonary embolism, cardiac, or pulmonary complications, as bed bug exterminator complications such as anastomotic ulcer, insufficient weight loss and vitamin deficiencies. I emphasized the importance of close follow-up, adherence to instructions and good communication. So far she has proven to be an excellent communicator and very compliant with all our directions accomplishing a great weight loss. I believe that she is an excellent candidate and she is ready. 2. Preop prescriptions were provided and explained the purpose of each one. Need to be purchased preop. Start Pantoprazole now as you get it from the pharmacy, 1 pill per day. Sucralfate and Zofran are for after surgery as needed. 3. Bowel prep: please do 7 packets ?of Miralax mixing each one with a an 8oz glass of water, crystal light, gatorade zero, or propel ?on 01/20/24 and the same amount on 01/21/24. The Miralax you begin with one packet at a time in 8oz water or crystal light, gatorade zero, or propel ?as early in the day as you can and you do them back to back until you finish them. Continue the protein shakes during? the bowel prep. 4. Needs to purchase 1oz medicine cups . 5. Needs to purchase Children's liquid Tylenol for postop pain control. 6. She needs to stop the Asprin and Sulindac as of tomorrow 01/12/24. Avoid aspirin, motrin, Advil, Aleve, Ibuprofen, Naproxyn. Tylenol is OK. 7. She needs to purchase the Celebrate 4:1 protein shakes from the hospital's gift shop. 8. Will do basic preop blood work-up any day between Friday01/12/24 and Friday01/16/24 fasting for 12 hours and is scheduled to see the Anesthesiologist prior to the day of surgery. 9. Importance of adherence to postop folllow-up and recommendations was underscored and she understands that. 10. Stop food and bars as of Friday01/12/24 and continue with 3 Premier protein shakes (HALF scoop EACH in 8oz almond milk) at 8am-10am, 11am-1pm and 2pm-4pm and TWO more Premier protein shake with ONE scoop EACH in 8oz of almond milk at 5pm-7pm and 8pm-10pm 11. No soups, broths or V8 12. The patient's?medical?history has been reviewed and they are considered low risk for post op DVT and therefore DVT prophylaxis is not considered necessary. Travel after surgery was reviewed. The patient has not disclosed any travel plans during the first 30 days after surgery and they have been advised that within the first 30 days after surgery any bus, plane, train or car travel over 2 hours in duration is contraindicated due to the possibility of developing blood clots from immobility. Any travel, needs to include periods of ambulation of 10 minutes in duration every 2 hours.? Patient was instructed to discuss any plans for travel during this period with their bariatric surgeon.? 13. Use your CPAP daily and bring it to the hospital with your mask 14. Please take at the day of surgery the following medications: only the Metoprolol according to the following parameters: As of tomorrow please measure your blood pressure daily in the morning. If blood pressure is: Below 120/70: do not take the Metoprolol 121/71 to 135/85: take HALF Metoprolol Over 136/86: take the whole Metoprolol 15. Stop any control pills and don't use them for one month after surgery 16. Absolutely no smoking or vaping, or marijuana until the surgery and for at least the first 4 weeks. Only nicotine patches are allowed. 17. Send me weight measurements on Friday01/14/24 and then on 01/22/24, the day of surgery before you go to the hospital. 18. Avoid any steroids by mouth for any reason. Let me know if someone prescribes them to you 19 These instructions supersede anything else you read in the handbook, anything you watched in videos or classes or you were told by any other provider. If there is any conflict, you follow the above instructions 20. Check your blood sugar daily and let me know immediately if the blood sugar drops below 100. Orders: Orders Prothrombin Time INR 01/11/24 E11.9 - Type 2 diabetes mellitus without complications, E66.9 - Obesity, unspecified, E78.00 - Pure hypercholesterolemia, unspecified, I10 - Essential (primary) hypertension, Z79.4 - correction (current) use of insulin Type and Screen 01/11/24 E11.9 - Type 2 diabetes mellitus without complications, E66.9 - Obesity, unspecified, E78.00 - Pure hypercholesterolemia, unspecified, I10 - Essential (primary) hypertension, Z79.4 - correction (current) use of insulin C Reactive Protein 01/11/24 E11.9 - Type 2 diabetes mellitus without complications, E66.9 - Obesity, unspecified, E78.00 - Pure hypercholesterolemia, unspecified, I10 - Essential (primary) hypertension, 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 Lipid Panel 01/11/24 E11.9 - Type 2 diabetes mellitus without complications, E66.9 - Obesity, unspecified, E78.00 - Pure hypercholesterolemia, unspecified, I10 - Essential (primary) hypertension, 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 Complete Blood Count Auto Diff 01/11/24 E11.9 - Type 2 diabetes mellitus without complications, E66.9 - Obesity, unspecified, E78.00 - Pure hypercholesterolemia, unspecified, I10 - Essential (primary) hypertension, 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 Insulin 01/11/24 E11.9 - Type 2 diabetes mellitus without complications, E66.9 - Obesity, unspecified, E78.00 - Pure hypercholesterolemia, unspecified, I10 - Essential (primary) hypertension, 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 TSH reflex Free T4 01/11/24 E11.9 - Type 2 diabetes mellitus without complications, E66.9 - Obesity, unspecified, E78.00 - Pure hypercholesterolemia, unspecified, I10 - Essential (primary) hypertension, Z79.4 - correction (current) use of insulin Partial Thromboplastin Time 01/11/24 E11.9 - Type 2 diabetes mellitus without complications, E66.9 - Obesity, unspecified, E78.00 - Pure hypercholesterolemia, unspecified, I10 - Essential (primary) hypertension, 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
[2024-01-11 15:02] VITALS: BMI 33.1
== END 2024-01-12 12:50 | disposition home or self-care (01) ==
LOC: HO.HBS 08:01
PROVIDERS: PCP Nurse Practitioner Family; Visit Provider Surgery
DX: E66.9 Obesity, unspecified (principal)
CPT/HCPCS: 99214

== ENCOUNTER → 2024-01-12 08:01 | Outpatient (BNVA) | payer OTHER, SELFPAY | PROVIDERS: PCP Nurse Practitioner Family; Visit Provider Surgery | DX: E66.9 Obesity, unspecified (principal); E11.9 Type 2 diabetes mellitus without complications; I10 Essential (primary) hypertension; Z79.4 Long term (current) use of insulin; E78.00 Pure hypercholesterolemia, unspecified; K21.9 Gastro-esophageal reflux disease without esophagitis; R11.0 Nausea; Z01.818 Encounter for other preprocedural examination ==

== ENCOUNTER → 2024-01-16 08:14 | Outpatient (BNVA) | payer OTHER, SELFPAY | PROVIDERS: PCP Nurse Practitioner Family; Visit Provider Physician Assistant Surgical ==

== ENCOUNTER 2024-01-22 08:45 | Inpatient (IN) | payer OTHER, SELFPAY ==
[2024-01-16 08:12] LABS: MANUAL DIFF FLAG NO
[2024-01-16 08:45] LABS: Basophils Absolute Auto 0.1 X10*3/uL (0.0-0.2); Basophils Percent Auto 0.9 % (0-2); Eosinophils Absolute Auto 0.3 X10*3/uL (0.0-0.4); Eosinophils Percent Auto 2.9 % (0-4); Hematocrit 45.9 % (37.0-47.0); Hemoglobin 15.5 g/dl (12.0-16.0); Imm Gran Abs Auto 0.04 X10*3/uL (0.00-0.03); Imm Gran Pct Auto 0.5 % (0.0-0.4); Lymphocytes Absolute Auto 2.4 X10*3/uL (1.2-4.9); Lymphocytes Percent Auto 28.4 % (20-40); Mean Corpuscular HGB Conc 33.8 g/dl (31.0-35.0); Mean Corpuscular Hemoglobin 28.4 pg (27.0-33.0); Mean Corpuscular Volume 84.2 fL (80.0-98.0); Mean Platelet Volume 9.7 fL (9.4-12.3); Monocytes Absolute Auto 0.6 X10*3/uL (0.1-1.2); Monocytes Percent Auto 6.6 % (2-11); Neutrophils Absolute Auto 5.2 x10*3/uL (2.0-8.3); Neutrophils Percent Auto 60.7 % (45-73); Platelet Count 286 X10*3/uL (160-400); Red Blood Count 5.45 X10*6/uL (4.20-5.50); White Blood Count 8.5 X10*3/uL (4.8-10.8)
[2024-01-16 08:52] LABS: Prothrombin Time 12.1 SEC (11.1-13.3)
[2024-01-16 08:54] LABS: Partial Thromboplastin Time 36.1 SEC (26.0-36.8)
[2024-01-16 09:21] LABS: Alanine Aminotransferase 43 U/L (0-31); Albumin Level 4.3 g/dL (3.5-5.0); Alkaline Phosphatase 125 U/L (39-117); Anion Gap 15 (12-20); Aspartate Amino Transferase 34 U/L (5-31); Bilirubin Total 0.9 mg/dL (0.0-1.0); Blood Urea Nitrogen 17 mg/dL (9-16); C Reactive Protein 3.11 mg/dL (< or = 0.50); Calcium 9.7 mg/dL (8.4-10.2); Carbon Dioxide 27 mmol/L (22-29); Chloride 104 mmol/L (96-108); Cholesterol 187 mg/dL (<200); Estimated Glomerular Filt Rate > 60; Glucose Random 146 mg/dL (60-115); HDL Cholesterol 39 mg/dL (>40); LDL Cholesterol Calculated 123 mg/dL (<100); Potassium 3.8 mmol/L (3.3-5.1); Sodium 142 mmol/L (135-145); Total Protein 7.4 g/dL (6.5-8.0); Triglycerides 125 mg/dL (<150)
[2024-01-16 09:28] LABS: Estimated Average Glucose 174 mg/dL; Hemoglobin A1c % 7.7 % (<6.0)
[2024-01-16 09:48] LABS: TSH reflex Free T4 1.07 uIU/mL (0.32-4.0)
[2024-01-16 09:58] LABS: Insulin 12 uU/mL (2-29)
[2024-01-16 11:24] VITALS: BMI 32.3
--- NOTE | 2024-01-21 09:30 | P.CONAN_ITS ---
HPI - Anesthesia Eval Consult details Narrative: 53yo F for Gastrectomy Sleeve,EGD,possible diaphragmatic hernia,possible ventral hernia,possible open, Cardiac cleared - eval'd d/t pt report of heart beating hard and fast when she does physical activity . W/U negative. Likely d/t deconditioning PMFSH Active Problems Active Problems: All Active Problems Preop cardiovascular exam (Acute) Heart palpitations (Acute) DERECK (obstructive sleep apnea) (Acute) Diabetes (Acute) Anxiety (Acute) Depression (Acute) Insulin dependent type 2 diabetes mellitus (Acute) Obesity (BMI 30-39.9) (Acute) HTN (hypertension) (Acute) Hypercholesterolemia (Acute) Past Medical History Medical History (Updated 01/24/24 @ 00:04 by Orin Vasquez) Preop cardiovascular exam GERD (gastroesophageal reflux disease) DJD (degenerative joint disease) Sleep apnea Anxiety Depression Insulin dependent type 2 diabetes mellitus History of pulmonary embolism Hypercholesterolemia HTN (hypertension) Obesity (BMI 30-39.9) Family History Family History Mother Diabetes Heart problem Hypertension Father Mental health disorder Daughter No problems noted. Son No problems noted. Son No problems noted. Surgical History Surgical History (Updated 01/30/24 @ 10:46 by Magi Barth CMA) Hx of laparoscopic partial gastrectomy H/O vein stripping Hx of hysterectomy Hx of section Social History Social History Household Members: None Housing: Apartment Are you a primary dialysis patient care technician to a significant other at home: No Do you presently have visiting nurse or other home services: No Alcohol intake: never Patient Tobacco Use Status: Never used Tobacco service: No Meds Allergies Allergy/AdvReac Type Severity Reaction Status Date / Time tramadol Allergy Mild WEAKNESS Verified 01/16/24 08:33 Home Medications ?Medication ?Instructions ?Recorded ?Confirmed ?Last Taken ?Type atorvastatin 10 mg tablet 10 mg PO DAILY 03/04/23 01/30/24 01/11/24 History escitalopram oxalate 20 mg tablet 20 mg PO DAILY 03/04/23 01/30/24 01/11/24 History buspirone 7.5 mg tablet 7.5 mg PO BID 06/04/23 01/30/24 01/11/24 History melatonin 5 mg tablet 10 mg PO BEDTIME 01/22/24 01/30/24 01/21/24 History zolpidem 10 mg tablet 10 mg PO BEDTIME PRN insomnia 01/22/24 01/30/24 Unknown History Exam Height,Weight and Vital Signs: Height 4 ft 11 in Weight 72.575 kg Pertinent Lab Results Pertinent Lab Results: Laboratory Tests 01/16/24 08:10 WBC 8.5 RBC 5.45 Hgb 15.5 Hct 45.9 MCV 84.2 MCH 28.4 MCHC 33.8 RDW 13.0 Plt Count 286 MPV 9.7 Immature Gran % (Auto) 0.5 H Neut % (Auto) 60.7 Lymph % (Auto) 28.4 [place] % (Auto) 6.6 Eos % (Auto) 2.9 Baso % (Auto) 0.9 Lymph # (Auto) 2.4 [place] # (Auto) 0.6 Eos # (Auto) 0.3 Baso # (Auto) 0.1 Abs Immat Gran (auto) 0.04 H Absolute Neuts (auto) 5.2 Absolute Nucleated RBC 0.000 Nucleated RBC % (auto) 0.0 PT 12.1 INR 1.0 APTT 36.1 Sodium 142 Potassium 3.8 Chloride 104 Carbon Dioxide 27 Anion Gap 15 BUN 17 H Creatinine 0.84 Estim Creat Clear Calc TNP Estimated GFR > 60 Random Glucose 146 H Estimat Average Glucose 174 Hemoglobin A1c % 7.7 H Insulin Level 12 Calcium 9.7 Total Bilirubin 0.9 AST 34 H ALT 43 H Alkaline Phosphatase 125 H C-Reactive Protein 3.11 H Total Protein 7.4 Albumin 4.3 Triglycerides 125 Cholesterol 187 LDL Cholesterol, Calc 123 H HDL Cholesterol 39 L TSH 1.07 Blood Type O Positive Antibody Screen NEGATIVE Narrative Narrative: Per cardiology clearance note: An echocardiogram done 08/19/2023 showed EF 60%, inferior lateral and basal inferior hypokinetic. A Holter monitor done 08/19/2023 for 3 days showed sinus rhythm with average heart rate 79, no significant pauses or. An exercise stress test done 08/19/2023 with 5 minutes of exercise mild shortness of breath, no chest discomfort, no EKG changes of ischemia. Due to the wall motion abnormality on the echocardiogram she underwent a CTA of the coronary arteries done on 08/27/2023 showing no significant CAD. Assessment and Plan Assessment Anesthesia Assessment: Chart Reviewed
[2024-01-22] VITALS (11 sets, daily range): BP systolic 154–177; BP diastolic 86–103; PULSE 79–100; RESP 10–18; TEMP 36.1–36.6; O2SAT 92–97; BMI 32.5
--- OUTSIDE RECORDS SUMMARY | 2024-01-22 08:48 | XMS_ITS | Continuity of Care Document ---
Author Organization [facility] Address [address] [place] [id number] Care Team Providers Care Getter Operator Name Role Phone Renato MORRISON, Milton Loyola Primary Care Physicia n Encounter [facility] Date(s): 02/04/20 - 03/05/20 [facility] [address] [id number]- [facility] Attending Physician: Jimenez Grant Admitting [...] 18:58:54 EDT, Aerosol, Route to Pharmacy Electronically, [id number], [facility]/pharmacy #[id number], Compound Start Date: [...] 11/02/18 18:58:53 EDT, Route to Pharmacy Electronically, [id number], [facility]/pharmacy #[id number] Start Date: 11/02/18 Status: Ordered BD Ultra-Fine pen needles, BERTRAM 4 mm x 32 G BD Ultra-Fine pen needles, BERTRAM 4 mm x 32 G, See Instructions, # 150 each, Refills 11, Tot. [id number], Maintenance, Use for times a days with [...] 11/02/18 18:58:54 EDT, Route to Pharmacy Electronically, [id number], [facility]/pharmacy #[id number] Start Date: 11/02/18 [...] tablet, 0 Refills, Maintenance, 01/03/20 13:01:00 EDT, [facility]/pharmacy #[id number], 152, cm, 11/01/19 19:28:00 EDT, [...] 01/18/20 9:31:00 EDT, Route to Pharmacy Electronically, [facility]/pharmacy #[id number], 152, cm, 11/01/19 19:28:00 EDT, [...] tablet, 4 Refills, Maintenance, 01/03/20 13:00:00 EDT, [facility]/pharmacy #[id number], 152, cm, 11/01/19 19:28:00 EDT, [...]
--- OUTSIDE RECORDS SUMMARY | 2024-01-22 08:48 | XMS_ITS | Continuity of Care Document ---
Author Organization [facility] Address [address] [place] [address]- Care Team Providers Care Insurance Professional Name Role Phone Renato MORRISON, Milton Loyola Primary Care Physicia n Encounter [facility] Date(s): 08/28/23 - 09/27/[address] [address]- Allergies, Adverse Reactions, Alerts Substance Reaction Severity Status traMADol tongue numbness--but she fell near [facility] Active Immunizations Given and Recorded Vaccine Date Status Refusal Reason [id number] bivalent booster vax 07/17/22 Given influenza virus vaccine, inactivated 07/17/22 Give n influenza virus vaccine, inactivated 06/01/20 Give n influenza virus vaccine, inactivated 05/13/17 Give n SARS-CoV-2 (COVID-19) mRNA BNT-162b2 vac 1 05/25/21 Given SARS-CoV-2 (COVID-19) mRNA BNT-162b2 vac 2 05/04/21 Given hepatitis B adult vaccine 01/18/16 Given pneumococcal 23-valent vaccine 01/18/16 Given tetanus/diphtheria/pertussis, acel(Tdap) 01/18/16 Given 1Result Comment: NS DIL LOT [id number] EXP 11/2022 2Result Comment: DILUENT LOT#: [id number] EXP: 11/14 MFG: FRESENSIUS Medications albuterol 0.083% [...] 250.02. Use before BS control and lantus, 08/07/23 10:36:00 EST, Compound, 150, cm, 08/07/23 10:20:00 EST, Height, 81, kg, 07/03/23 14:25:00 EST, Dry Weight Start Date: 08/07/23 Status: Ordered apixaban 5 mg oral tablet 1 tablet = 5 mg, By Mouth, Daily, [facility] Follow speciality, # 30 tablet, 2 Refills, Maintenance, 03/06/23 16:52:00 EDT, Tablet, [facility]/pharmacy #[id number], Partial fill upon patient request if theprescription is for a schedule II opioid drug., 145... Start Date: 03/06/23 Stop Date: 06/04/23 Status: Ordered Aspirin Low Dose 81 mg oral delayed release tablet See Instructions, PJE KRYSTEN TABLETA TOLOZADAS by [facility] records continue, # 30 tablet, 11 Refills, 07/04/22 11:40:00 EST, [id number], 149.8, cm, 07/04/22 11:20:00 EST, Height, 83.3, kg, 06/14/22 18:50:00 EDT, Dry Weight Start Date: 07/04/22 Status: Ordered atorvastatin 10 mg oral tablet See Instructions, ASAD BASHIR TABLETA TOS LOS MIRANDA, # 30 tablet, 11 Refills, 05/24/22 14:42:00 EDT, [id number], 149.86, cm, 05/24/22 13:53:00 EDT, Height, 85.7, kg, 07/24/21 14:26:00 EST, Dry Weight Start Date: 05/24/22 Status: Ordered BD Ultra-Fine pen needles, BERTRAM 4 mm x 32 G BD Ultra-Fine pen needles, BERTRAM 4 mm x 32 G, See Instructions, # 150 each, Refills 11, Tot. [id number], Maintenance, Use for times a days with insulin. DM E119, 05/31/22 13:26:00 EDT, Compound, 149.86, cm, 05/27/22 9:58:00 EDT, Height, 85.7, kg, 07/24... Start Date: 05/31/22 Status: Ordered benzonatate 100 mg oral capsule 1 capsule = 100 mg, By Mouth, 3 times a day, # 42 capsule, 0 Refills, Maintenance, 08/07/23 10:40:00 EST, [facility]/pharmacy #[id number], Partial fill upon patient request if the prescription is for a schedule II opioid drug., 150, cm, 08/07/23 10:20:00 EST, [facility]... Start Date: 08/07/23 Stop Date: 08/21/23 Status: Ordered covid home test covid home test, See Instructions, # 1 each, Refills 0, Tot. Refills 0, Maintenance, use as need it, 05/24/22 14:30:00 EDT, Supply, 149.86, cm, 05/24/22 13:53:00 EDT, Height, 85.7, kg, 07/24/21 14:26:00 EST, Dry Weight Start Date: 05/24/22 Status: Ordered ergocalciferol 10054 iu oral capsule 1, capsule, By Mouth, Every week, # 4 capsule, Refills 4, Maintenance, 10/22/22 15:42:00 EST, [facility], [id number], 149.8, cm, 07/22/22 9:38:00 EST, Height, 83.3, kg, 06/14/22 18:50:00 EDT, Dry Weight Start Date: 10/22/22 Status: Ordered Escitalopram = 20 mg, By Mouth, Daily, 0 Refills, Maintenance, 05/13/19 15:46:32 EDT Start Date: 05/13/19 Status: Ordered Eucerin Plus topical lotion 1 application, Topically, 2 times a day, PRN for dry skin, # 600 mL, 11 Refills, Maintenance, 01/17/23 13:42:00 EDT, Lotion, [facility]/pharmacy #[id number], Partial fill upon patient request if the prescription is for a schedule II opioid drug., 1 application Top... Start Date: 01/17/23 Stop Date: 01/12/24 Status: Ordered Eucerin Plus topical lotion 1 application, Topically, 2 times a day, PRN for dry skin, # 600 mL, 1 Refills, Maintenance, 05/24/22 14:28:00 EDT, Lotion, [facility]/pharmacy #[id number], Partial fill upon patient request if the prescription is for a schedule II opioid drug., 1 application Topi... Start Date: 05/24/22 Status: Ordered Freestyle Lancets See Instructions, # 100 each, Refills 11, Tot. Refills 11, Maintenance, E11.65 tests tid ; on insulin, 08/07/23 10:36:00 EST, Compound, 150, cm, 08/07/23 10:20:00 EST, Height, 81, kg, 07/03/23 14:25:00 EST, Dry Weight Start Date: 08/07/23 Status: Ordered Freestyle Lite Test Strips See Instructions, # 100 each, Refills 11, Tot. Refills 11, Maintenance, E11.65 on insulin To Test TID, 08/07/23 10:36:00 EST, Compound, 150, cm, 08/07/23 10:20:00 EST, Height, 81, kg, 07/03/23 14:25:00 EST, Dry Weight Start Date: 08/07/23 Status: Ordered Imitrex 50 mg oral tablet See Instructions, 1 tablet By Mouth at onset of headache. May repeat once in 2 hours. Not > 4/ week., # 9 tablet, 1 Refills, Maintenance, 07/02/23 15:57:00 EST, [facility]/pharmacy #[id number], 145, cm, 06/03/23 15:58:00 EDT, Height, 81, kg, 01/05/23 21:32:00 EDT,... Start Date: 07/02/23 Status: Ordered Insulin Lispro Scot KwikPen 100 units/mL injectable solution = 15 units, Subcutaneous Infusion, 3 times a day before meals, with breakfast and lunch rotate injection sites. stop novolog due insurance issues. in ukrainian, # 15 mL, 11 Refills, Maintenance, 08/07/23 12:49:00 EST, [facility]/pharmacy #[id number], Partial fill... Start Date: 08/07/23 Stop Date: 12/8/24 Status: Ordered Insulin Syringe, BD Ultra-Fine 0.3 [...] 09/10/25 12:17:00 EST, 09/15/24 12:17:00 EST, Solution, [facility]/pharmacy #[id number], 149.8, cm, 07/22/22 9:38:00 EST, Height, 83.3, kg, 06/14/22 18:50:00 EDT, .. Start Date: 09/15/24 Stop Date: 09/10/25 Status: Ordered loratadine 10 mg oral tablet See Instructions, ASAD BURKETT TODOS LOS MIRANDA, # 30 tablet, Refills 5, Tot. Refills 5, 05/24/2214:42:00 EDT, Instructions Replace Required Details, Route to Pharmacy Electronically, [facility]/pharmacy#[id number], 149.86, cm, 05/24/22 13:53:00 EDT, Height, 8... Start Date: 05/24/22 Status: Ordered meclizine 25 mg oral tablet 1 tablet = 25 mg, By Mouth, 3 times a day, PRN for dizziness, # 30 tablet, 0 Refills, Maintenance, 05/31/22 13:26:00 EDT, Tablet, [facility]/pharmacy #[id number], Partial fill upon patient request if the prescription is for a schedule II opioid drug., 149.86, cm,... Start Date: 05/31/22 Status: Ordered Metoprolol Tartrate 25 mg oral tablet 1 tablet, By Mouth, 2 times a day, # 180 tablet, 1 Refills, Maintenance, 08/08/23 20:44:00 EST, [id number], 150, cm, 08/07/23 10:20:00 EST, Height, 81, kg, 07/03/23 14:25:00 EST, Dry Weight Start Date: 08/08/23 Status: Ordered oxymeter oxymeter, See Instructions, # [...] Replace Required Details, Route to Pharmacy Electronically, [id number]... Start Date: 01/17/23 Status: Ordered Vitamin B2 100 mg oral tablet See Instructions, TOME KRYSTEN TABLETA DOS VECES AL JULIAN, # 60 tablet, 4 Refills, 07/02/23 15:57:00 EST,[id number], 145, cm, 06/03/23 15:58:00 EDT, Height, 81, kg, 01/05/23 21:32:00 EDT, Dry Weight Start Date: 07/02/23 Status: Ordered Problem List Condition Confirmation Course Effective Dates Status Health St atus Informant Depression Confirmed Active Diabetes mellitus Confirmed Active Dream enactment behavior Confirmed Active Hypertension Confirmed Active Lactic acidosis Confirmed Active Meningioma Confirmed Active Myalgia Confirmed Active Obstructive sleep apnea Confirmed Active Severe obesity (BMI 35.0-39.9) with comorbidity Confirmed Active Social History Social History Type Response Smoking Status Never (less than 100 in lifetime) entered on: 01/29/23 Sex Female Patient Care team information Care Team Personnel Name: Jesika Hua RN Position: S RN Member Role: Primary Care Nurse Name: Milton Gross NP Position: [facility] Associate Professional Member Role: PCP Address: Address: [address] [place] [address]- Care Team Related Persons Name: YASMIN FISHER Address: home [address] [place] [address]
--- OUTSIDE RECORDS SUMMARY | 2024-01-22 08:48 | XMS_ITS | Continuity of Care Document ---
Author Organization [facility] ter Address [address] [place] [id number]- Care Team Providers Care Systems Applications Programming Lead Name Role Phone Renato MORRISON, Milton Loyola Primary Care Physicia n Encounter [facility] Date(s): 01/13/24 - 01/13/[address] [address]- Discharge Disposition: A-D/C Home Attending Physician: Shila Hurtado DO Admitting Physician: Shila Hurtado DO Referring Physician: Not on Staff, Referring MD Allergies, Adverse Reactions, Alerts Substance Reaction Severity Status traMADol tongue numbness--but she fell near [place] Active Immunizations Given and Recorded Vaccine Date Status Refusal Reason [id number] bivalent booster vax 07/17/22 Given influenza virus vaccine, inactivated 07/17/22 Give n influenza virus vaccine, inactivated 06/01/20 Give n influenza virus vaccine, inactivated 05/13/17 Give n SARS-CoV-2 (COVID-19) mRNA BNT-162b2 vac 1 05/25/21 Given SARS-CoV-2 (COVID-19) mRNA BNT-162b2 vac 2 05/04/21 Given hepatitis B adult vaccine 01/18/16 Given pneumococcal 23-valent vaccine 01/18/16 Given tetanus/diphtheria/pertussis, acel(Tdap) 01/18/16 Given 1Result Comment: NS DIL LOT [id number] EXP 11/2022 2Result Comment: DILUENT LOT#: [id number] EXP: 11/14 MFG: FRESENSIUS Medications albuterol 0.083% inhalation solution 3 mL = 2.5 mg, Inhalation, Every 6 hours, PRN for wheezing, # 25 each, 11 Refills, Maintenance, 01/17/23 13:45:00 EDT, Solution, [id number], 145, cm, 01/17/23 13:04:00 EDT, Height, 81, kg, 01/05/23 21:32:00 EDT, Dry Weight Start Date: 01/17/23 Status: Ordered Alcohol Wipes See Instructions, # 100 each, Refills 5, Tot. Refills 5, Maintenance, DM 250.02. Use before BS control and lantus, 08/07/23 10:36:00 EST, Compound, 150, cm, 08/07/23 10:20:00 EST, Height, 81, kg, 07/03/23 14:25:00 EST, Dry Weight Start Date: 08/07/23 Status: Ordered Aspirin Low Dose 81 mg oral delayed release tablet See Instructions, ASAD BASHIR TABLETMackenzie MIRANDA by miriam krishna, # 30 tablet, 11 Refills, 07/04/22 11:40:00 EST, [facility]/pharmacy #[id number], 149.8, cm, 07/04/22 11:20:00 EST, Height, 83.3, kg, 06/14/22 18:50:00 EDT, Dry Weight Start Date: 07/04/22 Status: Ordered atorvastatin 10 mg oral tablet See Instructions, TAKE 1 TABLET BY MOUTH EVERY DAY, # 90 tablet, 3 Refills, Maintenance, 10/14/23 10:38:00 EST, [id number], 150, cm, 09/16/23 11:00:00 EST, Height, 81, kg, 07/03/23 14:25:00 EST,Dry Weight Start Date: 10/14/23 Status: Ordered atorvastatin 10 mg oral tablet See Instructions, ASAD MIRANDA, # 30 tablet, 11 Refills, 05/24/22 14:42:00 EDT, [facility]/pharmacy #[id number], 149.86, cm, 05/24/22 13:53:00 EDT, Height, 85.7, kg, 07/24/21 14:26:00 EST, Dry Weight Start Date: 05/24/22 Status: Ordered BD Ultra-Fine pen needles, BERTRAM 4 mm x 32 G BD Ultra-Fine pen needles, BERTRAM 4 mm x 32 G, See Instructions, # 150 each, Refills 11, Tot. [id number], Maintenance, Use for times a days with insulin. DM E119, 05/31/22 13:26:00 EDT, Compound, 149.86, cm, 05/27/22 9:58:00 EDT, Height, 85.7, kg, 07/24... Start Date: 05/31/22 Status: Ordered benzonatate 200 mg oral capsule 1 capsule = 200 mg, By Mouth, 3 times a day, for 7 days, # 21 capsule, 0 Refills, Acute 01/20/24 16:56:00 EDT, 01/13/24 16:56:00 EDT, Capsule, [facility]/pharmacy #[id number], Partial fill upon patient request ifthe prescription is for a schedule II opioid drug.,... Start Date: 01/13/24 Stop Date: 01/20/24 Status: Ordered covid home test covid home test, See Instructions, # 1 each, Refills 0, Tot. Refills 0, Maintenance, use as need it, 05/24/22 14:30:00 EDT, Supply, 149.86, cm, 05/24/22 13:53:00 EDT, Height, 85.7, kg, 07/24/21 14:26:00 EST, Dry Weight Start Date: 05/24/22 Status: Ordered ergocalciferol 55679 iu oral capsule 1, capsule, By Mouth, Every week, # 4 capsule, Refills 4, Maintenance, 10/22/22 15:42:00 EST, [facility] Electron[facility], [id number], 149.8, cm, 07/22/22 9:38:00 EST, Height, 83.3, kg, 06/14/22 18:50:00 EDT, Dry Weight Start Date: 10/22/22 Status: Ordered Escitalopram = 20 mg, By Mouth, Daily, 0 Refills, Maintenance, 05/13/19 15:46:32 EDT Start Date: 05/13/19 Status: Ordered Eucerin Plus topical lotion 1 application, Topically, 2 times a day, PRN for dry skin, # 600 mL, 11 Refills, Maintenance, 01/17/23 13:42:00 EDT, Lotion, [facility]/pharmacy #[id number], Partial fill upon patient request if the prescription is for a schedule II opioid drug., 1 application Top... Start Date: 01/17/23 Stop Date: 01/12/24 Status: Ordered Eucerin Plus topical lotion 1 application, Topically, 2 times a day, PRN for dry skin, # 600 mL, 1 Refills, Maintenance, 05/24/22 14:28:00 EDT, Lotion, [facility]/pharmacy #[id number], Partial fill upon [...] tablet, 1 Refills, Maintenance, 07/02/23 15:57:00 EST, [facility]/pharmacy #[id number], 145, cm, 06/03/23 15:58:00 EDT, Height, 81, kg, 01/05/23 21:32:00 EDT,... Start Date: 07/02/23 Status: Ordered Insulin Lispro Scot KwikPen 100 units/mL injectable solution = 15 units, Subcutaneous Infusion, 3 times a day before meals, with breakfast and lunch rotate injection sites. stop novolog due insurance issues. in czech, # 15 mL, 11 Refills, Maintenance, 08/07/23 12:49:00 EST, [facility]/pharmacy #[id number], Partial fill... Start Date: 08/07/23 Stop [...] 09/10/25 12:17:00 EST, 09/15/24 12:17:00 EST, Solution, [facility]/pharmacy #[id number], 149.8, cm, 07/22/22 9:38:00 EST, Height, 83.3, kg, 06/14/22 18:50:00 EDT, . Start Date: 09/15/24 Stop Date: 09/10/25 Status: Ordered loratadine 10 mg oral tablet See Instructions, TAKE 1 TABLET BY MOUTH EVERY DAY, # 30 tablet, Refills 5, Maintenance, 10/14/23 10:38:00 EST, Instructions Replace Required Details, Route to Pharmacy Electronically, [id number], 150, cm, 09/16/23 11:00:00 EST, Height, 81, kg, 1... Start Date: 10/14/23 Status: Ordered loratadine 10 mg oral tablet See Instructions, ASAD KRYSTEN TABLETA TODOS [place] MIRANDA, # 30 tablet, Refills 5, Tot. Refills 5, 05/24/2214:42:00 EDT, Instructions Replace Required Details, Route to Pharmacy Electronically, [facility]/pharmacy#[id number], 149.86, cm, 05/24/22 13:53:00 EDT, Height, 8... Start Date: 05/24/22 Status: Ordered meclizine 25 mg oral tablet 1 tablet = 25 mg, By Mouth, 3 times a day, PRN for dizziness, # 30 tablet, 0 Refills, Maintenance, 05/31/22 13:26:00 EDT, Tablet, [facility]/pharmacy #[id number], Partial fill upon patient request if the prescription is for a schedule II opioid drug., 149.86, cm,... Start Date: 05/31/22 Status: Ordered Metoprolol Tartrate 25 mg oral tablet 1 tablet, By Mouth, 2 times a day, # 180 tablet, 1 Refills, Maintenance, 08/08/23 20:44:00 EST, [facility], 150, cm, 08/07/23 10:20:00 EST, Height, 81, kg, 07/03/23 14:25:00 EST, Dry Weight Start Date: 08/08/23 Status: Ordered Moisture Drops preserved ophthalmic solution 2 drops, Eyes, Both, 2 times a day, PRN for dry eyes, # 15 mL, 0 Refills, Maintenance, 01/13/24 16:57:00 EDT, Solution, [facility]/pharmacy #[id number], Partial fill upon patient request if the prescription is for a schedule II opioid drug., 2 drops Eyes, Both 2 t... Start Date: 01/13/24 Status: Ordered mupirocin 2% topical ointment See Instructions, 1 APPLICATION TOPICALLY 3 TIMES A DAY,X7 DAYS, # 22 Gm, 0 Refills, Maintenance, 10/14/23 10:38:00 EST, [facility], 30, 1 APPLICATION TOPICALLY 3 TIMES A DAY,X7 DAYS, 150, cm, 09/16/23 11:00:00 EST, Height, 81, kg, 07/03/23 14:25... Start Date: 10/14/23 Status: Ordered oxymeter oxymeter, See Instructions, # [...] Replace Required Details, Route to Pharmacy Electronically, [id number]... Start Date: 01/17/23 Status: Ordered sulindac 200 mg oral tablet 1 tablet = 200 mg, By Mouth, 2 times a day, with food or milk, # 60 tablet, 1 Refills, Maintenance,10/14/23 11:39:00 EST, Tablet, [facility]/pharmacy #[id number], Partial fill upon patient request if the prescription is for a schedule II opioid drug., 150, cm, 02... Start Date: 10/14/23 Status: Ordered Vitamin B2 100 mg oral tablet See Instructions, ASAD LEZAMA AL JULIAN, # 60 tablet, 4 Refills, 07/02/23 15:57:00 EST,[facility]/pharmacy #[id number], 145, cm, 06/03/23 15:58:00 EDT, Height, 81, kg, 01/05/23 21:32:00 EDT, Dry Weight Start Date: 07/02/23 Status: Ordered Problem List Condition Confirmation Course Effective Dates Status Health St atus Informant Depression Confirmed Active Diabetes mellitus Confirmed Active Dream enactment behavior Confirmed Active Hypertension Confirmed Active Lactic acidosis Confirmed Active Meningioma Confirmed Active Myalgia Confirmed Active Obese class I Confirmed Active Obstructive sleep apnea Confirmed Active Results Radiology Reports * Exam Date Time Procedure Performing Provider Status 01/13/24 1:39 PM Chest Portable Krys Nobles; Scot (Verified) Notes: (Chest Portable) Reason For Exam: Shortness of Breath RESULT: Chest Portable PROCEDURE: Chest Portable CLINICAL INDICATION: 53 years old Female with shortness of breath CP and L side feels sleepy started last night, worse this AM. Initial CP 10 10, now 7 10 after 3x nitro.18g R AC; Reason: Shortnessof Breath; Clinical Question(s): CHF. COMPARISON: Chest radiographs 2008 through January 05, 2023. FINDINGS: Portable AP erect view of the chest performed at 1:24 PM. Lines and tubes: Several EKG leads project over the chest. Lungs and pleura: Minor new elevation of the LEFT hemidiaphragm which could be positional. Minor linear scarring at the LEFT lung base unchanged. Lungs otherwise clear as visualized. No pleural effusions.No evidence of pneumothorax. Heart, mediastinum and jerardo: Mild tortuosity and calcification of the thoracic aorta noted. No cardiomegaly or pulmonary venous hypertension. Bones and soft tissues: Mild degenerative changes in the thoracic spine. Abnormality. IMPRESSION: 1. No evidence of acute cardiopulmonary disease. 2. Minor new elevation of the LEFT hemidiaphragm which could be positional. Thank you for allowing me to participate in the care of this patient. WSN: [id number] Ordering Physician: Shila Hurtado Dictated By: Ez Marinelli MD Dictated Date/Time: 01/13/24 2:01 pm Reviewed By: Ez Marinelli MD Signed By: Ez Marinelli MD Signed Date/Time: 01/13/24 2:01 pm Transcribed By: KASSIE Transcribed Date/Time: 01/13/24 2:00 pm Vital Signs Most recent to oldest [Reference Range]: 1 2 Oxygen Saturation [94-100 %] 97 % (01/13/24 4:17 PM) 96 % (01/13/24 12:20 PM) Pulse Rate [55-90 bpm] 105 bpm *H* (01/13/24 4:17 PM) 106 bpm *H* (01/13/24 12:20 PM) Blood Pressure [90-138/55-84 mm Hg] 131/ 95mm Hg (01/13/24 4:17 PM) 137/82mm Hg (01/13/24 12:20 PM) Respiratory Rate [16-30 br/min] 17 br/mi n (01/13/24:17 PM) 22 br/min (01/13/24 12:20 PM) Temperature [96.8-100.4 DegF] 97.8 DegF (01/13/24 12:20 PM) Mode of Delivery (Oxygen) Room air (01/13/24 4:17 PM) Room air (01/13/24 12:20 PM) Blood pressure sites Arm, left (01/13/24 12:20 PM) Temperature Route Oral (01/13/24 12:20 PM) Social History Social History Type Response Smoking Status Never (less than 100 in lifetime) entered on: 01/29/23 Sex Female EKG study * Event Display: ECG 12-Lead Authored Date: Please click on pdf link to open report * Event Display: ECG 12-Lead Authored Date: Ventricular Rate: 91 BPM Atrial Rate: 91 BPM P-R Interval: 134 ms QRS Duration: 84 ms Q-T Interval: 376 ms QTC Calculation(Bazett): 462 ms P [place]: 61 degrees R [place]: 21 degrees T [place]: 34 degrees Normal sinus rhythm Normal ECG When compared with ECG of 05-JAN-2023 19:41, No significant change was found Confirmed by Jude Valdes ([id number]) on 01/13/2024 1:34:33 PM [place]: Jude Valdes Note * Shila Hurtado DO: PERFORM, SIGN, VERIFY Event Display: Patient Education Handout Authored Date: Patient Care team information Care Team Personnel Name: Jesika Hua RN Position: S RN Member Role: Primary Care Nurse Name: Milton Gross NP Position: [facility] Associate Professional Member Role: PCP Address: Address: [address] [place] [address]- Care Team Related Persons Name: YASMIN FISHER Address: home [address] [place] [address]
--- OUTSIDE RECORDS SUMMARY | 2024-01-22 08:49 | XMS_ITS | Continuity of Care Document ---
Author Organization [facility] Address [address] [facility], 3r d Floor, [address] [place] [address]- Care Team Providers Care Director Of Rotc Name Role Phone Renato TRAFFIC MONITOR SPECIALIST, Milton Loyola Primary Care Physicia n En[place] [facility] [id number] Date(s): 07/02/23 - 08/01/23 [facility] [address], 3[address] Floor, [address] [place] [id number]- Attending Physician: Jimenez Grant Admitting Physician: Admtr, Jimenez Referring Physician: Admtr, Ar8 Allergies, Adverse Reactions, Alerts Substance Reaction Severity Status traMADol tongue numbness--but she fell near loc Active Immunizations Given and Recorded Vaccine Date Status Refusal Reason [id number] bivalent booster vax 07/17/22 Given influenza virus vaccine, inactivated 07/17/22 Give n influenza virus vaccine, inactivated 06/01/20 Give n influenza virus vaccine, inactivated 05/13/17 Give n SARS-CoV-2 (COVID-19) mRNA BNT-162b2 vac 1 05/25/21 Given SARS-CoV-2 (COVID-19) mRNA BNT-162b2 vac 2 05/04/21 Given hepatitis B adult vaccine 01/18/16 Given pneumococcal 23-valent vaccine 01/18/16 Given tetanus/diphtheria/pertussis, acel(Tdap) 01/18/16 Given 1Result Comment: NS DIL LOT [id number] EXP 11/2022 2Result Comment: DILUENT LOT#: [id number] EXP: 11/14 MFG: FRESENSIUS Medications albuterol 0.083% [...] = 5 mg, By Mouth, Daily, by [email or web address] records. Follow speciality, # 30 tablet, 2 Refills, Maintenance, 03/06/23 16:52:00 EDT, Tablet, [facility]/pharmacy #[id number], Partial fill upon patient request if theprescription is for a schedule II opioid drug., 145... Start Date: 03/06/23 Stop Date: 06/04/23 Status: Ordered Aspirin Low Dose 81 mg oral delayed release tablet See Instructions, ASAD BASHIR TABLETA [facility], # [facility] tablet, 11 Refills, 07/04/22 11:40:00 EST, [facility]/pharmacy #[id number], 149.8, cm, 07/04/22 11:20:00 EST, [...] Instructions, # 150 each, Refills 11, Tot. [id number], Maintenance, Use for times a days with [...] Compound Start Date: 07/25/21 Status: Ordered ergocalciferol 11407 iu oral capsule 1, capsule, By Mouth, Every week, # 4 capsule, Refills 4, Maintenance, 10/22/22 15:42:00 EST, [facility], [id number], 149.8, cm, 07/22/22 9:38:00 EST, Height, 83.3, kg, 06/14/22 18:50:00 EDT, Dry Weight Start Date: 10/22/22 Status: Ordered Escitalopram = 20 mg, By Mouth, Daily, 0 Refills, Maintenance, 05/13/19 15:46:32 EDT Start Date: 05/13/19 Status: Ordered Eucerin Plus topical lotion 1 application, Topically, 2 times a day, PRN for dry skin, # 600 mL, 11 Refills, Maintenance, 01/17/23 13:42:00 EDT, Lotion, [facility]/pharmacy #[id number], Partial fill upon patient request if the prescription is for a schedule II opioid drug., 1 application Top... Start Date: 01/17/23 Stop Date: 01/12/24 Status: Ordered Eucerin Plus topical lotion 1 application, Topically, 2 times a day, PRN for dry skin, # 600 mL, 1 Refills, Maintenance, 05/24/22 14:28:00 EDT, Lotion, [facility]/pharmacy #[id number], Partial fill upon patient request [...] tablet, 1 Refills, Maintenance, 07/02/23 15:57:00 EST, [facility]/pharmacy #[id number], 145, cm, 06/03/23 15:58:00 EDT, Height, 81, kg, 01/05/23 21:32:00 EDT,... Start Date: 07/02/23 Status: Ordered Insulin Lispro Scot KwikPen 100 units/mL injectable solution = 15 units, Subcutaneous Infusion, 3 times a day before meals, for 30 days, with breakfast and lunch rotate injection sites. stop novolog due insurance issues. in libyan, # 15 mL, 11 Refills, Hard Stop 08/07/23 12:49:00 EST, 08/12/22 12:49:00 EST,... Start Date: 08/12/22 Stop Date: 08/07/23 Status: Ordered Insulin Lispro Scot KwikPen 100 units/mL injectable solution = 15 units, Subcutaneous Infusion, 3 times a day before meals, with breakfast and lunch rotate injection sites. stop novolog due insurance issues. in libyan, # 15 mL, 11 Refills, Maintenance, 08/07/23 12:49:00 EST, [facility]/pharmacy #[id number], Partial fill... Start Date: 08/07/23 [...] 09/10/25 12:17:00 EST, 09/15/24 12:17:00 EST, Solution, [facility]/pharmacy #[id number], 149.8, cm, 07/22/22 9:38:00 EST, Height, 83.3, kg, 06/14/22 18:50:00 EDT, . Start Date: 09/15/24 Stop Date: 09/10/25 Status: Ordered loratadine 10 mg oral tablet See Instructions, ASAD RODRÍGUEZ MIRANDA, # 30 tablet, Refills 5, Tot. Refills 5, 05/24/2214:42:00 EDT, Instructions Replace Required Details, Route to Pharmacy Electronically, [facility]/pharmacy#[id number], 149.86, cm, 05/24/22 13:53:00 EDT, Height, 8... Start Date: 05/24/22 Status: Ordered meclizine 25 mg oral tablet 1 tablet = 25 mg, By Mouth, 3 times a day, PRN for dizziness, # 30 tablet, 0 Refills, Maintenance, 05/31/22 13:26:00 EDT, Tablet, [facility]/pharmacy #[id number], Partial fill upon patient request if the prescription is for a schedule II opioid drug., 149.86, cm,... Start Date: 05/31/22 Status: Ordered Metoprolol Tartrate 25 mg oral tablet 1 tablet, By Mouth, 2 times a day, # 180 tablet, 0 Refills, Maintenance, 04/07/23 14:20:00 EDT, [id number], 145, cm, 01/29/23 8:36:00 EDT, Height, 81, [...] Replace Required Details, Route to Pharmacy Electronically, [id number]... Start Date: 01/17/23 Status: Ordered Pulse Oximeter [...] # 60 tablet, 4 Refills, 07/02/23 15:57:00 EST,[facility]/pharmacy #[id number], 145, cm, 06/03/23 15:58:00 EDT, Height, 81, kg, 01/05/23 21:32:00 EDT, Dry Weight Start Date: 07/02/23 Status: Ordered Zithromax 250 mg oral tablet 1 pack/packet, By Mouth, Once, # 6 tablet, 0 Refills, Soft Stop, 01/05/23 23:08:00 EDT, Tablet, [facility]/pharmacy #[id number], Partial fill upon patient request [...] Name: Milton Gross NP Position: [facility] Associate Professional Member Role: PCP Address: Address: [address] [place] [address]- Care Team Related Persons Name: YASMIN FISHER Address: home [address] [place] [id number]
--- OUTSIDE RECORDS SUMMARY | 2024-01-22 08:50 | XMS_ITS | Continuity of Care Document ---
Author Organization [facility] Address [address] [place] [address]- Care Team Providers Care Photographic Intelligence Officer Name Role Phone Milton Gross NP Primary Care Physicia n Encounter [facility] Date(s): 04/30/22 - 09/04/[address] [id number] Attending Physician: Milton Gross NP Admitting Physician: Milton Gross NP Referring Physician: Milton Gross NP Allergies, Adverse Reactions, Alerts Substance Reaction Severity Status traMADol tongue numbness--but she fell near loc Active Immunizations Given and Recorded Vaccine Date Status Refusal Reason [id number] bivalent booster vax 07/17/22 Given influenza virus [...] Patient Refuses 1Result Comment: NS DIL LOT [id number] EXP 11/2022 2Result Comment: DILUENT LOT#: [id number] EXP: 11/14 MFG: FRESENSIUS Medications acetaminophen 325 mg oral capsule 1 capsule = 325 mg, By Mouth, Every 4 hours, PRN as needed for fever, not to exceed 4000 mg/day Print in Thai, # 90 capsule, 1 Refills, Acute 09/20/22 [...] = 5 mg, By Mouth, Daily, by [facility], # 30 tablet, 3 Refills, Maintenance, 07/04/22 11:38:00 EST, Tablet, [facility]/pharmacy #[id number], Partial fill upon patient request if the prescription is for a schedule II opioid drug., 149.8, cm, 07/04/22 11... Start Date: 07/04/22 Stop Date: 11/01/22 Status: Ordered Aspirin Low Dose 81 mg oral delayed release tablet See Instructions, ASAD BURKETT TODOS LOS MIRANDA by [facility] records continue, # 30 tablet, 11 Refills, 07/04/22 11:40:00 EST, [id number], 149.8, cm, 07/04/22 11:20:00 EST, Height, 83.3, kg, 06/14/22 18:50:00 EDT, Dry Weight Start Date: 07/04/22 Status: Ordered atorvastatin 10 mg oral tablet See Instructions, ASAD BASHIR TABLETA TOGARCES, # 30 tablet, 11 Refills, 05/24/22 14:42:00 EDT, [id number], 149.86, cm, 05/24/22 13:53:00 EDT, Height, 85.7, kg, 07/24/21 14:26:00 EST, Dry Weight Start Date: 05/24/22 Status: Ordered BD Ultra-Fine pen needles, BERTRAM 4 mm x 32 G BD Ultra-Fine pen needles, BERTRAM 4 mm x 32 G, See Instructions, # 150 each, Refills 11, Tot. [id number], Maintenance, Use for times a days with [...] Compound Start Date: 07/25/21 Status: Ordered ergocalciferol 02706 iu oral capsule See Instructions, TOME 1 [...] sites. stop novolog due insurance issues. in [place], # 15 mL, 11 Refills, Maintenance, 08/12/22 12:49:00 EST, [facility]/pharmacy #[id number], Partial fill... Start Date: 08/12/22 Stop [...] Replace Required Details, Route to Pharmacy Electronically, [id number]... Start Date: 03/28/22 Status: Ordered Pulse Oximeter [...] Refills, Maintenance, [facility] [id number], 152, cm, 11/06/20 10:17:00 EDT, Height, 81, [...] Care Nurse Name: Milton Gross NP Position: [facility] Associate Professional Member Role: PCP Address: Address: [address] [place] [address]- Care Team Related Persons Name: YASMIN FISHER Address: home [address] [address]
--- OUTSIDE RECORDS SUMMARY | 2024-01-22 08:50 | XMS_ITS | Continuity of Care Document ---
Author Organization [facility] Address [address] [place] [address]- Care Team Providers Care Route Service Manager Name Role Phone Renato MORRISON, Milton Loyola Primary Care Physicia n Encounter [facility] Date(s): 08/06/23 - 12/04/23 [facility] [address] [place] [id number] Encounter Diagnosis Obstructive sleep apnea (AHI 9.1, min SpO2 86%)(Discharge Diagnosis) - 11/04/23 Attending Physician: Haley DINREO, Eber Barragan Admitting Physician: Haley DINERO, Eber Barragan Referring Physician: Milton Gross NP Allergies, Adverse Reactions, Alerts Substance Reaction Severity Status traMADol tongue numbness--but she fell near loc Active Immunizations Given and Recorded Vaccine Date Status Refusal Reason [id number] bivalent booster vax 07/17/22 Given influenza virus vaccine, inactivated 07/17/22 Give n influenza virus vaccine, inactivated 06/01/20 Give n influenza virus vaccine, inactivated 05/13/17 Give n SARS-CoV-2 (COVID-19) mRNA BNT-162b2 vac 1 05/25/21 Given SARS-CoV-2 (COVID-19) mRNA BNT-162b2 vac 2 05/04/21 Given hepatitis B adult vaccine 01/18/16 Given pneumococcal 23-valent vaccine 01/18/16 Given tetanus/diphtheria/pertussis, acel(Tdap) 01/18/16 Given 1Result Comment: NS DIL LOT [id number] EXP 11/2022 2Result Comment: DILUENT LOT#: [id number] EXP: 11/14 MFG: FRESENSIUS Medications albuterol 0.083% inhalation solution 3 mL = 2.5 mg, Inhalation, Every 6 hours, PRN for wheezing, # 25 each, 11 Refills, Maintenance, 01/17/23 13:45:00 EDT, Solution, [facility]/pharmacy #[id number], 145, cm, 01/17/23 13:04:00 EDT, Height, [...] tablet See Instructions, ASAD BASHIR TABLETA MARIANNE RODÍRGUEZ MIRANDA by miriam [facility]ishna, # 30 tablet, 11 Refills, 07/04/22 11:40:00 EST, [facility]/pharmacy #[id number], 149.8, cm, 07/04/22 11:20:00 EST, Height, 83.3, kg, 06/14/22 18:50:00 EDT, Dry Weight Start Date: 07/04/22 Status: Ordered atorvastatin 10 mg oral tablet See Instructions, TAKE 1 TABLET BY MOUTH EVERY DAY, # 90 tablet, 3 Refills, Maintenance, 10/14/23 10:38:00 EST, [facility] STORE [id number], 150, cm, 09/16/23 11:00:00 EST, Height, 81, kg, 07/03/23 14:25:00 EST,Dry Weight Start Date: 10/14/23 Status: Ordered atorvastatin 10 mg oral tablet See Instructions, ASAD BASHIR TABLETA MARIANNE MARCOS MIRANDA, # 30 tablet, 11 Refills, 05/24/22 14:42:00 EDT, [facility]/pharmacy #[id number], 149.86, cm, 05/24/22 13:53:00 EDT, Height, 85.7, kg, 07/24/21 14:26:00 EST, Dry Weight Start Date: 05/24/22 Status: Ordered BD Ultra-Fine pen needles, BERTRAM 4 mm x 32 G BD Ultra-Fine pen needles, BERTRAM 4 mm x 32 G, See Instructions, # 150 each, Refills 11, Tot. [id number], Maintenance, Use for times a days with insulin. DM E119, 05/31/22 13:26:00 EDT, Compound, 149.86, cm, 05/27/22 9:58:00 EDT, Height, 85.7, kg, 07/24... Start Date: 05/31/22 Status: Ordered covid home test covid home test, See Instructions, # 1 each, Refills 0, Tot. Refills 0, Maintenance, use as need it, 05/24/22 14:30:00 EDT, Supply, 149.86, cm, 05/24/22 13:53:00 EDT, Height, 85.7, kg, 07/24/21 14:26:00 EST, Dry Weight Start Date: 05/24/22 Status: Ordered ergocalciferol 84580 iu oral capsule 1, capsule, By Mouth, Every week, # 4 capsule, Refills 4, Maintenance, 10/22/22 15:42:00 EST, [facility] 15493, 149.8, cm, 07/22/22 9:38:00 EST, Height, 83.3, kg, 06/14/22 18:50:00 EDT, Dry Weight Start Date: 10/22/22 Status: Ordered Escitalopram = 20 mg, By Mouth, Daily, 0 Refills, Maintenance, 05/13/19 15:46:32 EDT Start Date: 05/13/19 Status: Ordered Eucerin Plus topical lotion 1 application, Topically, 2 times a day, PRN for dry skin, # 600 mL, 11 Refills, Maintenance, 01/17/23 13:42:00 EDT, Lotion, [facility]/pharmacy #[id number], Partial fill upon patient request if the prescription is for a schedule II opioid drug., 1 application Top... Start Date: 01/17/23 Stop Date: 01/12/24 Status: Ordered Eucerin Plus topical lotion 1 application, Topically, 2 times a day, PRN for dry skin, # 600 mL, 1 Refills, Maintenance, 05/24/22 14:28:00 EDT, Lotion, [facility]/pharmacy #[id number], Partial [...] tablet, 1 Refills, Maintenance, 07/02/23 15:57:00 EST, [facility]/pharmacy #[id number], 145, cm, 06/03/23 15:58:00 EDT, Height, 81, kg, 01/05/23 21:32:00 EDT,... Start Date: 07/02/23 Status: Ordered Insulin Lispro Scot KwikPen 100 units/mL injectable solution = 15 units, Subcutaneous Infusion, 3 times a day before meals, with breakfast and lunch rotate injection sites. stop novolog due insurance issues. in [place], # 15 mL, 11 Refills, Maintenance, 08/07/23 12:49:00 EST, [facility]/pharmacy #[id number], Partial fill... Start Date: [...] 09/10/25 12:17:00 EST, 09/15/24 12:17:00 EST, Solution, [facility]/pharmacy #[id number], 149.8, cm, 07/22/22 9:38:00 EST, Height, 83.3, kg, 06/14/22 18:50:00 EDT, Start Date: 09/15/24 Stop Date: 09/10/25 Status: Ordered loratadine 10 mg oral tablet See Instructions, TAKE 1 TABLET BY MOUTH EVERY DAY, # 30 tablet, Refills 5, Maintenance, 10/14/23 10:38:00 EST, Instructions Replace Required Details, Route to Pharmacy Electronically, [facility] [id number], 150, cm, 09/16/23 11:00:00 EST, Height, 81, kg, 1... Start Date: 10/14/23 Status: Ordered loratadine 10 mg oral tablet See Instructions, TOME KRYSTEN TABLETA TODOS LOS MIRANDA, # 30 tablet, Refills 5, Tot. Refills 5, 05/24/2214:42:00 EDT, Instructions Replace Required Details, Route to Pharmacy Electronically, [facility]/pharmacy#[id number], 149.86, cm, 05/24/22 13:53:00 EDT, Height, 8... Start Date: 05/24/22 Status: Ordered meclizine 25 mg oral tablet 1 tablet = 25 mg, By Mouth, 3 times a day, PRN for dizziness, # 30 tablet, 0 Refills, Maintenance, 05/31/22 13:26:00 EDT, Tablet, [facility]/pharmacy #[id number], Partial fill upon patient request if the prescription is for a schedule II opioid drug., 149.86, cm,... Start Date: 05/31/22 Status: Ordered Metoprolol Tartrate 25 mg oral tablet 1 tablet, By Mouth, 2 times a day, # 180 tablet, 1 Refills, Maintenance, 08/08/23 20:44:00 EST, [id number], 150, cm, 08/07/23 10:20:00 EST, Height, 81, kg, 07/03/23 14:25:00 EST, Dry Weight Start Date: 08/08/23 Status: Ordered mupirocin 2% topical ointment See Instructions, 1 APPLICATION TOPICALLY 3 TIMES A DAY,X7 DAYS, # 22 Gm, 0 Refills, Maintenance, 10/14/23 10:38:00 EST, [facility], 30, 1 APPLICATION TOPICALLY 3 TIMES A [...] Replace Required Details, Route to Pharmacy Electronically, [id number]... Start Date: 01/17/23 Status: Ordered senna - oral tablet 2 tablet, By Mouth, Daily at bedtime, PRN for constipation, for 30 days, # 60 tablet, 1 Refills, Acute 12/13/23 11:40:00 EDT, 10/14/23 11:40:00 EST, Tablet, [facility]/pharmacy #[id number], Partial fill upon patient request if the prescription is for a schedule II... Start Date: 10/14/23 Stop Date: 12/13/23 Status: Ordered sulindac 200 mg oral tablet 1 tablet = 200 mg, By Mouth, 2 times a day, with food or milk, # 60 tablet, 1 Refills, Maintenance,10/14/23 11:39:00 EST, Tablet, [facility]/pharmacy #[id number], [...] Confirmed Active Obstructive sleep apnea Confirmed Active Diagnosis Diagnosis Type Effective Dates Health Status Clinical Service Informant Obstructive sleep apnea (AHI 9.1, min SpO2 86%) Discharge Diagnosis 11/04/23 Non-Specified Social History Social History Type Response Smoking Status Never (less than 100 in lifetime) entered on: 01/29/23 Sex Female Patient Care team information Care Team Personnel Name: Jesika Hua RN Position: [facility] RN Member Role: Primary Care Nurse Name: Milton Gross NP Position: [facility] PCO Associate Professional Member Role: PCP Address: Address: [address] [place] [address]- Care Team Related Persons Name: YASMIN FISHER Address: home [address] [place] [address]
--- OUTSIDE RECORDS SUMMARY | 2024-01-22 08:50 | XMS_ITS | Continuity of Care Document ---
Author Organization [facility] Address [address] [place] [address]- Care Team Providers Care Fuse Spooler Name Role Phone Renato MORRISON, Milton Loyola Primary Care Physicia n Encounter [facility] [place] [place] ACCT [facility] [id number] Date(s): 08/07/23 - 09/06/[address] [address]- Attending Physician: Jimenez Grant Admitting Physician: AdmtrJimenez Referring Physician: Admtr ArKarely Allergies, Adverse Reactions, Alerts Substance Reaction Severity Status traMADol tongue numbness--but she fell near loc Active Immunizations Given and Recorded Vaccine Date Status Refusal Reason [id number] bivalent booster vax 07/17/22 Given influenza virus vaccine, inactivated 07/17/22 Give n influenza virus vaccine, inactivated 06/01/20 Give n influenza virus vaccine, inactivated 05/13/17 Give n SARS-CoV-2 (COVID-19) mRNA BNT-162b2 vac 1 05/25/21 Given SARS-CoV-2 (COVID-19) mRNA BNT-162b2 vac 2 05/04/21 Given hepatitis B adult vaccine 01/18/16 Given pneumococcal 23-valent vaccine 01/18/16 Given tetanus/diphtheria/pertussis, acel(Tdap) 01/18/16 Given 1Result Comment: NS DIL LOT [id number] EXP 11/2022 2Result Comment: DILUENT LOT#: [id number] EXP: 11/14 MFG: FRESENSIUS Medications albuterol 0.083% [...] 2 Refills, Maintenance, 03/06/23 16:52:00 EDT, Tablet, [facility]/pharmacy #[id number], Partial fill upon patient request if theprescription is for a schedule II opioid drug., 145... Start Date: 03/06/23 Stop Date: 06/04/23 Status: Ordered Aspirin Low Dose 81 mg oral delayed release tablet See Instructions, ASAD KRYSTEN TABLETA TOANTHONY LOS MIRANDA by [employer] records continue, # 30 tablet, 11 Refills, [...] Instructions, # 150 each, Refills 11, Tot. [id number], Maintenance, Use for times a days with insulin. DM E119, 05/31/22 13:26:00 EDT, Compound, 149.86, cm, 05/27/22 9:58:00 EDT, Height, 85.7, kg, 07/24... Start Date: 05/31/22 Status: Ordered benzonatate 100 mg oral capsule 1 capsule = 100 mg, By Mouth, 3 times a day, # 42 capsule, 0 Refills, Maintenance, 08/07/23 10:40:00 EST, [facility]/pharmacy #[id number], Partial fill upon patient [...] Weight Start Date: 05/24/22 Status: Ordered ergocalciferol 35185 iu oral capsule 1, capsule, By Mouth, Every week, # 4 capsule, Refills 4, Maintenance, 10/22/22 15:42:00 EST, [facility] Electronically, [facility] STORE [facility], 149.8, cm, 07/22/22 9:38:00 EST, Height, 83.3, kg, 06/14/22 18:50:00 EDT, Dry Weight Start Date: 10/22/22 Status: Ordered Escitalopram = 20 mg, By Mouth, Daily, 0 Refills, Maintenance, 05/13/19 15:46:32 EDT Start Date: 05/13/19 Status: Ordered Eucerin Plus topical lotion 1 application, Topically, 2 times a day, PRN for dry skin, # 600 mL, 11 Refills, Maintenance, 01/17/23 13:42:00 EDT, Lotion, [facility]/pharmacy #[id number], Partial fill upon patient request if the prescription is for a schedule II opioid drug., 1 application Top... Start Date: 01/17/23 Stop Date: 01/12/24 Status: Ordered Eucerin Plus topical lotion 1 application, Topically, 2 times a day, PRN for dry skin, # 600 mL, 1 Refills, Maintenance, 05/24/22 14:28:00 EDT, Lotion, [facility]/pharmacy #[id number], Partial fill upon patient [...] tablet, 1 Refills, Maintenance, 07/02/23 15:57:00 EST, [facility]/pharmacy #[id number], 145, cm, 06/03/23 15:58:00 EDT, Height, 81, kg, 01/05/23 21:32:00 EDT,... Start Date: 07/02/23 Status: Ordered Insulin Lispro Scot KwikPen 100 units/mL injectable solution = 15 units, Subcutaneous Infusion, 3 times a day before meals, with breakfast and lunch rotate injection sites. stop novolog due insurance issues. in stateless, # 15 mL, 11 Refills, Maintenance, 08/07/23 12:49:00 EST, [facility]/pharmacy #[id number], Partial fill... Start Date: 08/07/23 Stop [...] EST, 09/15/24 12:17:00 EST, Solution, [facility]/pharmacy #[id number], 149.8, cm, 07/22/22 9:38:00 EST, Height, 83.3, kg, 06/14/22 18:50:00 EDT, Start Date: 09/15/24 Stop Date: 09/10/25 Status: Ordered loratadine 10 mg oral tablet See Instructions, ASAD BURKETT TOANTHONY LOS MIRANDA, # 30 tablet, Refills 5, Tot. Refills 5, 05/24/2214:42:00 EDT, Instructions Replace Required Details, Route to Pharmacy Electronically, [facility]/pharmacy#[id number], 149.86, cm, 05/24/22 13:53:00 EDT, Height, 8... Start Date: 05/24/22 Status: Ordered meclizine 25 mg oral tablet 1 tablet = 25 mg, By Mouth, 3 times a day, PRN for dizziness, # 30 tablet, 0 Refills, Maintenance, 05/31/22 13:26:00 EDT, Tablet, [facility]/pharmacy #[id number], Partial fill upon patient request if the prescription is for a schedule II opioid drug., 149.86, cm,... Start Date: 05/31/22 Status: Ordered Metoprolol Tartrate 25 mg oral tablet 1 tablet, By Mouth, 2 times a day, # 180 tablet, 1 Refills, Maintenance, 08/08/23 20:44:00 EST, [facility], 150, cm, 08/07/23 10:20:00 EST, Height, 81, [...] Replace Required Details, Route to Pharmacy Electronically, [id number]... Start Date: 01/17/23 Status: Ordered Vitamin B2 [...] in lifetime) entered on: 01/29/23 Sex Female Cardiology Consult note * Event Display: Consult Note Cardiology Authored Date: Radiology * Event Display: Ultrasound Abdomen, Non-BH Authored Date: Note * Amber Ramirez: PERFORM, SIGN, VERIFY Event Display: Patient Education/Instruction Authored Date: [facility] Clinical Summary Person Information Visit Date 03/28/2015 10:20 AM Name ZAID DELEON Age 44 Years 1970 12:00 AM PCP Milton Gross NP PCP [facility]# [id number] Sex Female Race White Ethnicity / Language English Reason for Visit: Allergy Info: NKA Smoking [...] wheezes and PRN Durable Medical Equipment (Pen Mcroberts, 31 G x 8 mm BD Ultra Fine III) , See Instructions, use as directed for Type 1 Diabetes Mellitus. DM 250.02, 30 days, Refills: 5 Durable Medical Equipment (Pen Mcroberts, 31 G x 8 mm BD Ultra [...] 1 tablet, Oral, Daily, please print in stateless, Refills: 11 Future Orders No future orders [...] primary care provider, you may find a [facility] provider by calling [facility] at [phone]. For information about the plan of care [...] VERIFY Event Display: Patient Education/Instruction Authored Date: [id number] [facility] Person Information Visit Date 03/28/2015 10:20 AM Name ZAID DELEON Age 44 Years 1970 12:00 AM PCP Milton Gross NP PCP Sex Female Race White Ethnicity / Language English Reason for Visit: Allergy Info: NKA Smoking [...] wheezes and PRN Durable Medical Equipment (Pen Mcroberts, 31 G x 8 mm BD Ultra Fine III) , See Instructions, use as directed for Type 1 Diabetes Mellitus. DM 250.02, 30 days, Refills: 5 Durable Medical Equipment (Pen Mcroberts, 31 G x 8 mm BD Ultra [...] 1 tablet, Oral, Daily, please print in stateless, Refills: 11 Future Orders No future orders [...] primary care provider, you may find a [facility] provider by calling [facility] [employer] at [phone]. For information about the plan of care [...] Team Personnel Name: Jesika Hua RN Position: [facility] RN Member Role: Primary Care Nurse Name: Milton Gross NP Position: [facility] PCO Associate Professional Member Role: PCP Address: Address: [address] [place] [address]- Care Team Related Persons Name: YASMIN FISHER Address: home [address] [address]
--- OUTSIDE RECORDS SUMMARY | 2024-01-22 08:50 | XMS_ITS | Continuity of Care Document ---
Author Organization [facility] Address [address] [place] [address]- Care Team Providers Care Quill Reamer Name Role Phone Milton Gross NP Primary Care Physicia n Encounter [facility] ACCT R [id number] Date(s): 10/14/23 - 11/13/[address] [address]- Attending Physician: Jimenez Grant Admitting Physician: Jimenez Grant Referring Physician: AdmtrJimenez Allergies, Adverse Reactions, Alerts Substance Reaction Severity Status traMADol tongue numbness--but she fell near loc Active Immunizations Given and Recorded Vaccine Date Status Refusal Reason [id number] bivalent booster vax 07/17/22 Given influenza virus vaccine, inactivated 07/17/22 Give n influenza virus vaccine, inactivated 06/01/20 Give n influenza virus vaccine, inactivated 05/13/17 Give n SARS-CoV-2 (COVID-19) mRNA BNT-162b2 vac 1 05/25/21 Given SARS-CoV-2 (COVID-19) mRNA BNT-162b2 vac 2 05/04/21 Given hepatitis B adult vaccine 01/18/16 Given pneumococcal 23-valent vaccine 01/18/16 Given tetanus/diphtheria/pertussis, acel(Tdap) 01/18/16 Given 1Result Comment: NS DIL LOT [id number] EXP 11/2022 2Result Comment: DILUENT LOT#: [id number] EXP: 11/14 MFG: FRESENSIUS Medications albuterol 0.083% inhalation solution 3 mL = 2.5 mg, Inhalation, Every 6 hours, PRN for wheezing, # 25 each, 11 Refills, Maintenance, 01/17/23 13:45:00 EDT, Solution, [facility]/pharmacy #[id number], 145, cm, 01/17/23 13:04:00 EDT, [...] release tablet See Instructions, ASAD BASHIR TABLETMackenzie LOPES MARCOS JORDANS by miriam krishna, # 30 tablet, 11 Refills, 07/04/22 11:40:00 EST, [facility]/pharmacy #[id number], 149.8, cm, 07/04/22 11:20:00 EST, Height, 83.3, kg, 06/14/22 18:50:00 EDT, Dry Weight Start Date: 07/04/22 Status: Ordered atorvastatin 10 mg oral tablet See Instructions, TAKE 1 TABLET BY MOUTH EVERY DAY, # 90 tablet, 3 Refills, Maintenance, 10/14/23 10:38:00 EST, [facility] STORE 20239, 150, cm, 09/16/23 11:00:00 EST, Height, 81, kg, 07/03/23 14:25:00 EST,Dry Weight Start Date: 10/14/23 Status: Ordered atorvastatin 10 mg oral tablet See Instructions, ASAD BASHIR TABLETMackenzie MOSSKal MARCOS JORDANS, # 30 tablet, 11 Refills, 05/24/22 14:42:00 EDT, [facility]/pharmacy #[id number], 149.86, cm, 05/24/22 13:53:00 EDT, Height, 85.7, kg, 07/24/21 14:26:00 EST, Dry Weight Start Date: 05/24/22 Status: Ordered BD Ultra-Fine pen needles, BERTRAM 4 mm x 32 G BD Ultra-Fine pen needles, BERTRAM 4 mm x 32 G, See Instructions, # 150 each, Refills 11, Tot. [id number], Maintenance, Use for times a days with [...] Weight Start Date: 05/24/22 Status: Ordered ergocalciferol 78570 iu oral capsule 1, capsule, By Mouth, Every week, # 4 capsule, Refills 4, Maintenance, 10/22/22 15:42:00 EST, [facility] Electronically, [facility] STORE 87702, 149.8, cm, 07/22/22 9:38:00 EST, Height, 83.3, kg, 06/14/22 18:50:00 EDT, Dry Weight Start Date: 10/22/22 Status: Ordered Escitalopram = 20 mg, By Mouth, Daily, 0 Refills, Maintenance, 05/13/19 15:46:32 EDT Start Date: 05/13/19 Status: Ordered Eucerin Plus topical lotion 1 application, Topically, 2 times a day, PRN for dry skin, # 600 mL, 11 Refills, Maintenance, 01/17/23 13:42:00 EDT, Lotion, [facility]/pharmacy #[id number], Partial fill upon patient request if the prescription is for a schedule II opioid drug., 1 application Top... Start Date: 01/17/23 Stop Date: 01/12/24 Status: Ordered Eucerin Plus topical lotion 1 application, Topically, 2 times a day, PRN for dry skin, # 600 mL, 1 Refills, Maintenance, 05/24/22 14:28:00 EDT, Lotion, [facility]/pharmacy #[id number], Partial fill upon patient [...] tablet, 1 Refills, Maintenance, 07/02/23 15:57:00 EST, [facility]/pharmacy #[id number], 145, cm, 06/03/23 15:58:00 EDT, Height, 81, kg, 01/05/23 21:32:00 EDT,... Start Date: 07/02/23 Status: Ordered Insulin Lispro Scot KwikPen 100 units/mL injectable solution = 15 units, Subcutaneous Infusion, 3 times a day before meals, with breakfast and lunch rotate injection sites. stop novolog due insurance issues. in montserratian, # 15 mL, 11 Refills, Maintenance, 08/07/23 12:49:00 EST, [facility]/pharmacy #[id number], Partial fill... Start Date: 08/07/23 [...] 09/10/25 12:17:00 EST, 09/15/24 12:17:00 EST, Solution, [facility]/pharmacy #[id number], 149.8, cm, 07/22/22 9:38:00 EST, Height, 83.3, kg, 06/14/22 18:50:00 EDT, Start Date: 09/15/24 Stop Date: 09/10/25 Status: Ordered loratadine 10 mg oral tablet See Instructions, TAKE 1 TABLET BY MOUTH EVERY DAY, # 30 tablet, Refills 5, Maintenance, 10/14/23 10:38:00 EST, Instructions Replace Required Details, Route to Pharmacy Electronically, [facility]ORE [id number], 150, cm, 09/16/23 11:00:00 EST, Height, 81, kg, 1... Start Date: 10/14/23 Status: Ordered loratadine 10 mg oral tablet See Instructions, ASAD SHAWA TODOS LOS MIRANDA, # 30 tablet, Refills 5, Tot. Refills 5, 05/24/2214:42:00 EDT, Instructions Replace Required Details, Route to Pharmacy Electronically, [facility]/pharmacy#[id number], 149.86, cm, 05/24/22 13:53:00 EDT, Height, 8... Start Date: 05/24/22 Status: Ordered meclizine 25 mg oral tablet 1 tablet = 25 mg, By Mouth, 3 times a day, PRN for dizziness, # 30 tablet, 0 Refills, Maintenance, 05/31/22 13:26:00 EDT, Tablet, [facility]/pharmacy #[id number], Partial fill upon patient request if the prescription is for a schedule II opioid drug., 149.86, cm,... Start Date: 05/31/22 Status: Ordered Metoprolol Tartrate 25 mg oral tablet 1 tablet, By Mouth, 2 times a day, # 180 tablet, 1 Refills, Maintenance, 08/08/23 20:44:00 EST, [facility], 150, cm, 08/07/23 10:20:00 EST, Height, 81, kg, 07/03/23 14:25:00 EST, Dry Weight Start Date: 08/08/23 Status: Ordered mupirocin 2% topical ointment See Instructions, 1 APPLICATION TOPICALLY 3 TIMES A DAY,X7 DAYS, # 22 Gm, 0 Refills, Maintenance, 10/14/23 10:38:00 EST, [facility], 30, 1 APPLICATION TOPICALLY 3 TIMES A [...] Replace Required Details, Route to Pharmacy Electronically, [id number]... Start Date: 01/17/23 Status: Ordered senna - oral tablet 2 tablet, By Mouth, Daily at bedtime, PRN for constipation, for 30 days, # 60 tablet, 1 Refills, Acute 12/13/23 11:40:00 EDT, 10/14/23 11:40:00 EST, Tablet, [facility]/pharmacy #[id number], Partial fill upon patient request if the prescription is for a schedule II... Start Date: 10/14/23 Stop Date: 12/13/23 Status: Ordered sulindac 200 mg oral tablet 1 tablet = 200 mg, By Mouth, 2 times a day, with food or milk, # 60 tablet, 1 Refills, Maintenance,10/14/23 11:39:00 EST, Tablet, [facility]/pharmacy #[id number], Partial fill upon patient request if the prescription is for a schedule II opioid drug., 150, cm, 02... Start Date: 10/14/23 Status: Ordered Vitamin B2 100 mg oral tablet See Instructions, ASAD SHAWA DOS VECES AL JULIAN, # 60 tablet, 4 Refills, 07/02/23 15:57:00 EST,[facility]/pharmacy #[id number], 145, cm, 06/03/23 15:58:00 EDT, [...] lifetime) entered on: 01/29/23 Sex Female Cardiology * Event Display: Cardiology Office Note, Non- Authored Date: Cardiology Consult note * Event Display: Consult Note Cardiology Authored Date: Radiology * Event Display: Ultrasound Abdomen, Non- Authored Date: Note * Amber Ramirez: PERFORM, SIGN, VERIFY Event Display: Patient Education/Instruction Authored Date: [id number] [facility] Clinical Summary Person Information Visit Date 03/28/2015 10:20 AM Name ZAID DELEON Age 44 Years 1970 12:00 AM PCP Milton Gross NP PCP Sex Female Race White Ethnicity / Language Greenlandic Reason for Visit: Allergy Info: NKA Smoking [...] wheezes and PRN Durable Medical Equipment (Pen Gilmer, 31 G x 8 mm BD Ultra Fine III) , See Instructions, use as directed for Type 1 Diabetes Mellitus. DM 250.02, 30 days, Refills: 5 Durable Medical Equipment (Pen Gilmer, 31 G x 8 mm BD Ultra [...] 1 tablet, Oral, Daily, please print in montserratian, Refills: 11 Future Orders No future orders [...] primary care provider, you may find a [facility] provider by calling [facility] [employer] [facility] at [phone]. For information about the plan of care [...] VERIFY Event Display: Patient Education/Instruction Authored Date: [id number] [facility] Clinical Summary Person Information Visit Date 03/28/2015 10:20 AM Name ZAID DELEON Age 44 Years 1970 12:00 AM PCP Milton Gross NP PCP [facility]# [id number] Sex Female Race White Ethnicity / Language Greenlandic Reason for Visit: Allergy Info: NKA Smoking [...] wheezes and PRN Durable Medical Equipment (Pen Gilmer, 31 G x 8 mm BD Ultra Fine III) , See Instructions, use as directed for Type 1 Diabetes Mellitus. DM 250.02, 30 days, Refills: 5 Durable Medical Equipment (Pen Gilmer, 31 G x 8 mm BD Ultra [...] 1 tablet, Oral, Daily, please print in montserratian, Refills: 11 Future Orders No future orders [...] primary care provider, you may find a [facility] provider by calling [facility] [employer] at [phone]. For information about the plan of care [...] Team Personnel Name: Javid AGUILAR, Jesika Position: [facility] RN Member Role: Primary Care Nurse Name: Milton Gross NP Position: [facility] PCO Associate Professional Member Role: PCP Address: Address: [address] [place] [address]- Care Team Related Persons Name: YASMIN FISHER Address: home [address] [address]
--- OUTSIDE RECORDS SUMMARY | 2024-01-22 08:50 | XMS_ITS | Continuity of Care Document ---
Author Organization [facility] Address [address] [place] [address]- Care Team Providers Care Knife Finisher Name Role Phone Renato MORRISON, Milton Loyola Primary Care Physicia n Encounter [facility] Date(s): 07/08/23 - 08/07/[address] [address]- Allergies, Adverse Reactions, Alerts Substance Reaction Severity Status traMADol tongue numbness--but she fell near loc Active Immunizations Given and Recorded Vaccine Date Status Refusal Reason [id number] bivalent booster vax 07/17/22 Given influenza virus vaccine, inactivated 07/17/22 Give n influenza virus vaccine, inactivated 06/01/20 Give n influenza virus vaccine, inactivated 05/13/17 Give n SARS-CoV-2 (COVID-19) mRNA BNT-162b2 vac 1 05/25/21 Given SARS-CoV-2 (COVID-19) mRNA BNT-162b2 vac 2 05/04/21 Given hepatitis B adult vaccine 01/18/16 Given pneumococcal 23-valent vaccine 01/18/16 Given tetanus/diphtheria/pertussis, acel(Tdap) 01/18/16 Given 1Result Comment: NS DIL LOT [id number] EXP 11/2022 2Result Comment: DILUENT LOT#: [id number] EXP: 11/14 MFG: FRESENSIUS Medications albuterol 0.083% [...] = 5 mg, By Mouth, Daily, by [employer] records. Follow speciality, # 30 tablet, 2 [...] Instructions, # 150 each, Refills 11, Tot. [id number], Maintenance, Use for times a days with insulin. DM E119, 10/07/22 13:26:00 EDT, Compound, 149.86, cm, 05/27/22 9:58:00 EDT, Height, 85.7, kg, 07/24... Start Date: 05/31/22 Status: Ordered benzonatate 100 mg oral capsule 1 capsule = 100 mg, By Mouth, 3 times a day, # 42 capsule, 0 Refills, Maintenance, 08/07/23 10:40:00 EST, [facility]/pharmacy #[id number], Partial fill upon patient [...] Weight Start Date: 05/24/22 Status: Ordered ergocalciferol 57811 iu oral capsule 1, capsule, By Mouth, Every week, # 4 capsule, Refills 4, Maintenance, 10/22/22 15:42:00 EST, [facility] Electronically, [facility] 25[facility], 149.8, cm, 07/22/22 9:38:00 EST, Height, 83.3, kg, 06/14/22 18:50:00 EDT, Dry Weight Start Date: 10/22/22 Status: Ordered Escitalopram = 20 mg, By Mouth, Daily, 0 Refills, Maintenance, 05/13/19 15:46:32 EDT Start Date: 05/13/19 Status: Ordered Eucerin Plus topical lotion 1 application, Topically, 2 times a day, PRN for dry skin, # 600 mL, 11 Refills, Maintenance, 01/17/23 13:42:00 EDT, Lotion, [facility]/pharmacy #[id number], Partial fill [...] tablet, 1 Refills, Maintenance, 07/02/23 15:57:00 EST, [id number], 145, cm, 06/03/23 15:58:00 EDT, Height, 81, kg, 01/05/23 21:32:00 EDT,... Start Date: 07/02/23 Status: Ordered Insulin Lispro Scot KwikPen 100 units/mL injectable solution = 15 units, Subcutaneous Infusion, 3 times a day before meals, with breakfast and lunch rotate injection sites. stop novolog due insurance issues. in omani, # 15 mL, 11 Refills, Maintenance, 08/07/23 12:49:00 EST, [id number], Partial fill... Start Date: 12/14/23 Stop Date: 08/01/24 Status: Ordered Insulin Syringe, [...] 0 Refills, Maintenance, 04/07/23 14:20:00 EDT, [facility], 145, cm, 01/29/23 8:36:00 EDT, Height, 81, kg, 01/05/23 21:32:00 EDT, Dry Weight Start Date: 04/07/23 Stop Date: 07/06/23 Status: Ordered mupirocin 2% topical ointment 1 application, Topically, 3 times a day, for 7 days, # 22 Gm, 0 Refills, Acute 08/14/23 10:37:00 EST, 08/07/23 10:37:00 EST, Ointment, [facility]/pharmacy #[id number], Partial fill upon patient request if the prescription is for a schedule II opioid drug., 1 appli... Start Date: 08/07/23 Stop Date: 08/14/23 Status: Ordered oxymeter oxymeter, See Instructions, # [...] Replace Required Details, Route to Pharmacy Electronically, [id number]... Start Date: 01/17/23 Status: Ordered Vitamin B2 [...] Hua RN Position: [facility] RN Member Role: Primary Care Nurse Name: Milton Gross NP Position: [facility] PCO Associate Professional Member Role: PCP Address: Address: [address] [place] [address]- Care Team Related Persons Name: YASMIN FISHER Address: home [address] [address]
--- OUTSIDE RECORDS SUMMARY | 2024-01-22 08:51 | XMS_ITS | Continuity of Care Document ---
Author Organization [facility] Address [address] [place] [address]- Care Team Providers Care Director Heart Name Role Phone Renato MORRISON, Milton Loyola Primary Care Physicia n [place] [facility] [place] 12/08/23 - 01/07/[address] [address]- Allergies, Adverse Reactions, Alerts Substance Reaction Severity Status traMADol tongue numbness--but she fell near [facility] Active Immunizations Given and Recorded Vaccine Date Status Refusal Reason [id number] bivalent booster vax 07/17/22 Given influenza virus vaccine, inactivated 07/17/22 Give n influenza virus vaccine, inactivated 06/01/20 Give n influenza virus vaccine, inactivated 05/13/17 Give n SARS-CoV-2 (COVID-19) mRNA BNT-162b2 vac 1 05/25/21 Given SARS-CoV-2 (COVID-19) mRNA BNT-162b2 vac 2 05/04/21 Given hepatitis B adult vaccine 01/18/16 Given pneumococcal 23-valent vaccine 01/18/16 Given tetanus/diphtheria/pertussis, acel(Tdap) 01/18/16 Given 1Result Comment: NS DIL LOT [id number] EXP 11/2022 2Result Comment: DILUENT LOT#: [id number] EXP: 11/14 MFG: FRESENSIUS Medications albuterol 0.083% [...] release tablet See Instructions, PJE KRYSTEN TABLETA MARIANNE MIRANDA by [facility] continue, # 30 tablet, 11 Refills, 07/04/22 11:40:00 EST, [facility]/pharmacy #[id number], 149.8, cm, 07/04/22 11:20:00 EST, Height, 83.3, kg, 06/14/22 18:50:00 EDT, Dry Weight Start Date: 07/04/22 Status: Ordered atorvastatin 10 mg oral tablet See Instructions, TAKE 1 TABLET BY MOUTH EVERY DAY, # 90 tablet, 3 Refills, Maintenance, 10/14/23 10:38:00 EST, [facility] STORE [id number], 150, cm, 09/16/23 11:00:00 EST, Height, 81, [...] Instructions, # 150 each, Refills 11, Tot. [id number], Maintenance, Use for times a days with [...] Weight Start Date: 05/24/22 Status: Ordered ergocalciferol 19471 iu oral capsule 1, capsule, By Mouth, Every week, # 4 capsule, Refills 4, Maintenance, 10/22/22 15:42:00 EST, [facility], [facility] STORE [id number], 149.8, cm, 07/22/22 9:38:00 EST, Height, 83.3, kg, 06/14/22 18:50:00 EDT, Dry Weight Start Date: 10/22/22 Status: Ordered Escitalopram = 20 mg, By Mouth, Daily, 0 Refills, Maintenance, 05/13/19 15:46:32 EDT Start Date: 05/13/19 Status: Ordered Eucerin Plus topical lotion 1 application, Topically, 2 times a day, PRN for dry skin, # 600 mL, 11 Refills, Maintenance, 01/17/23 13:42:00 EDT, [facility]otion, [id number] Partial fill upon patient request if the prescription is for a schedule II opioid drug., 1 application Top... Start Date: 01/17/23 Stop Date: 01/12/24 Status: Ordered Eucerin Plus topical lotion 1 application, Topically, 2 times a day, PRN for dry skin, # 600 mL, 1 Refills, Maintenance, 05/24/22 14:28:00 EDT, Lotion, [facility]/pharmacy #[id number], Partial [...] tablet, 1 Refills, Maintenance, 07/02/23 15:57:00 EST, [facility]/pharmacy #[id number], 145, cm, 06/03/23 15:58:00 EDT, Height, 81, kg, 01/05/23 21:32:00 EDT,... Start Date: 07/02/23 Status: Ordered Insulin Lispro Scot KwikPen 100 units/mL injectable solution = 15 units, Subcutaneous Infusion, 3 times a day before meals, with breakfast and lunch rotate injection sites. stop novolog due insurance issues. in italian, # 15 mL, 11 Refills, Maintenance, 08/07/23 12:49:00 EST, [facility]/pharmacy #[id number], Partial fill... Start Date: [...] 09/10/25 12:17:00 EST, 09/15/24 12:17:00 EST, Solution, [facility]/pharmacy #[id number], 149.8, cm, 07/22/22 9:38:00 EST, Height, 83.3, kg, 06/14/22 18:50:00 EDT, DrJenny. Start Date: 09/15/24 Stop Date: 09/10/25 Status: Ordered loratadine 10 mg oral tablet See Instructions, TAKE 1 TABLET BY MOUTH EVERY DAY, # 30 tablet, Refills 5, Maintenance, 10/14/23 10:38:00 EST, Instructions Replace Required Details, Route to Pharmacy Electronically, [id number], 150, cm, 09/16/23 11:00:00 EST, Height, 81, kg, 1... Start Date: 10/14/23 Status: Ordered loratadine 10 mg oral tablet See Instructions, TOME KRYSTEN TABLETA TODOS LOS MIRANDA, # 30 tablet, Refills 5, Tot. Refills 5, 05/24/2214:42:00 EDT, Instructions Replace Required Details, Route to Pharmacy Electronically, [facility]/pharmacy#[id number], 149.86, cm, 05/24/22 13:53:00 EDT, Height, 8... Start Date: 05/24/22 Status: Ordered meclizine 25 mg oral tablet 1 tablet = 25 mg, By Mouth, 3 times a day, PRN for dizziness, # 30 tablet, 0 Refills, Maintenance, 05/31/22 13:26:00 EDT, Tablet, [facility]/pharmacy #[id number], Partial fill upon patient request if the prescription is for a schedule II opioid drug., 149.86, cm,... Start Date: 05/31/22 Status: Ordered Metoprolol Tartrate 25 mg oral tablet 1 tablet, By Mouth, 2 times a day, # 180 tablet, 1 Refills, Maintenance, 08/08/23 20:44:00 EST, [id number] 150, cm, 08/07/23 10:20:00 EST, Height, 81, kg, 07/03/23 14:25:00 EST, Dry Weight Start Date: 08/08/23 Status: Ordered mupirocin 2% topical ointment See Instructions, 1 APPLICATION TOPICALLY 3 TIMES A DAY,X7 DAYS, # 22 Gm, 0 Refills, Maintenance, 10/14/23 10:38:00 EST, [facility], 30, 1 APPLICATION TOPICALLY 3 TIMES A [...] Replace Required Details, Route to Pharmacy Electronically, [id number]... Start Date: 01/17/23 Status: Ordered sulindac 200 mg oral tablet 1 tablet = 200 mg, By Mouth, 2 times a day, with food or milk, # 60 tablet, 1 Refills, Maintenance,10/14/23 11:39:00 EST, Tablet, [facility]/pharmacy #[id number], [...] team information Care Team Personnel Name: Jesika Hau RN Position: [facility] RN Member Role: Primary Care Nurse Name: Milton Gross NP Position: [facility] PCO Associate Professional Member Role: PCP Address: Address: [address] [place] [address]- Care Team Related Persons Name: YASMIN FISHER Address: home [address] [place] [id number]
--- OUTSIDE RECORDS SUMMARY | 2024-01-22 08:52 | XMS_ITS | Continuity of Care Document ---
Author Organization [facility] Address [address] [place] [address]- Care Team Providers Care Research Physician Name Role Phone Renato MORRISON, Milton Loyola Primary Care Physicia n Encounter [facility] [place] Date(s): 06/11/23 - 08/20/[address] [address]- Attending Physician: Haley DINERO, Eber Barragan Admitting Physician: Haley DINERO, Eber Barragan Referring Physician: Milton Gross NP Allergies, Adverse Reactions, Alerts Substance Reaction Severity Status traMADol tongue numbness--but she fell [place] Active Immunizations Given and Recorded Vaccine Date Status Refusal Reason [id number] bivalent booster vax 07/17/22 Given influenza virus vaccine, inactivated 07/17/22 Give n influenza virus vaccine, inactivated 06/01/20 Give n influenza virus vaccine, inactivated 05/13/17 Give n SARS-CoV-2 (COVID-19) mRNA BNT-162b2 vac 1 05/25/21 Given SARS-CoV-2 (COVID-19) mRNA BNT-162b2 vac 2 05/04/21 Given hepatitis B adult vaccine 01/18/16 Given pneumococcal 23-valent vaccine 01/18/16 Given tetanus/diphtheria/pertussis, acel(Tdap) 01/18/16 Given 1Result Comment: NS DIL LOT [id number] EXP 11/2022 2Result Comment: DILUENT LOT#: [id number] EXP: 11/14 MFG: FRESENSIUS Medications albuterol 0.083% inhalation solution 3 mL = 2.5 mg, Inhalation, Every 6 hours, PRN for wheezing, # 25 each, 11 Refills, Maintenance, 01/17/23 13:45:00 EDT, Solution, [facility]/pharmacy #[id number], 145, cm, 01/17/23 13:04:00 EDT, Height, [...] = 5 mg, By Mouth, Daily, by [facility]. Follow speciality, # 30 tablet, 2 Refills, Maintenance, 03/06/23 16:52:00 EDT, Tablet, [facility]/pharmacy #[id number], Partial fill upon patient request if theprescription is for a schedule II opioid drug., 145... Start Date: 03/06/23 Stop Date: 06/04/23 Status: Ordered Aspirin Low Dose 81 mg oral delayed release tablet See Instructions, ASAD BASHIR TABLETA MARIANNE RODRÍGUEZ MIRANDA by [facility] records continue, # 30 tablet, 11 Refills, 07/04/22 11:40:00 EST, [facility]/pharmacy #[id number], 149.8, cm, 07/04/22 11:20:00 EST, Height, [...] Instructions, # 150 each, Refills 11, Tot. [id number], Maintenance, Use for times a days with insulin. DM E119, 05/31/22 13:26:00 EDT, Compound, 149.86, cm, 05/27/22 9:58:00 EDT, Height, 85.7, kg, 07/24... Start Date: 05/31/22 Status: Ordered benzonatate 100 mg oral capsule 1 capsule = 100 mg, By Mouth, 3 times a day, # 42 capsule, 0 Refills, Maintenance, 08/07/23 10:40:00 EST, [facility]/pharmacy #[id number], Partial fill upon patient [...] Weight Start Date: 05/24/22 Status: Ordered ergocalciferol 19364 iu oral capsule 1, capsule, By Mouth, Every week, # 4 capsule, Refills 4, Maintenance, 10/22/22 15:42:00 EST, [facility] Electronically, [facility] [id number], 149.8, cm, 07/22/22 9:38:00 EST, Height, 83.3, kg, 06/14/22 18:50:00 EDT, Dry Weight Start Date: 10/22/22 Status: Ordered Escitalopram = 20 mg, By Mouth, Daily, 0 Refills, Maintenance, 05/13/19 15:46:32 EDT Start Date: 05/13/19 Status: Ordered Eucerin Plus topical lotion 1 application, Topically, 2 times a day, PRN for dry skin, # 600 mL, 11 Refills, Maintenance, 01/17/23 13:42:00 EDT, Lotion, [facility]/pharmacy #[id number], Partial fill upon patient request if the prescription is for a schedule II opioid drug., 1 application Top... Start Date: 01/17/23 Stop Date: 01/12/24 Status: Ordered Eucerin Plus topical lotion 1 application, Topically, 2 times a day, PRN for dry skin, # 600 mL, 1 Refills, Maintenance, 05/24/22 14:28:00 EDT, Lotion, [facility]/pharmacy #[id number], Partial fill upon patient [...] tablet, 1 Refills, Maintenance, 07/02/23 15:57:00 EST, [facility]/pharmacy #[id number], 145, cm, 06/03/23 15:58:00 EDT, Height, 81, kg, 01/05/23 21:32:00 EDT,... Start Date: 07/02/23 Status: Ordered Insulin Lispro Scot KwikPen 100 units/mL injectable solution = 15 units, Subcutaneous Infusion, 3 times a day before meals, with breakfast and lunch rotate injection sites. stop novolog due insurance issues. in maori, # 15 mL, 11 Refills, Maintenance, 08/07/23 12:49:00 EST, [facility]/pharmacy #[id number], Partial fill... Start Date: 08/07/23 Stop [...] 09/10/25 12:17:00 EST, 09/15/24 12:17:00 EST, Solution, [facility]/pharmacy #[id number], 149.8, cm, 07/22/22 9:38:00 EST, Height, 83.3, kg, 06/14/22 18:50:00 EDT, . Start Date: 09/15/24 Stop Date: 09/10/25 Status: Ordered loratadine 10 mg oral tablet See Instructions, ASAD SHAWA TODOS LOS MIRANDA, # 30 tablet, Refills 5, Tot. Refills 5, 05/24/2214:42:00 EDT, Instructions Replace Required Details, Route to Pharmacy Electronically, [facility]/pharmacy#[id number], 149.86, cm, 05/24/22 13:53:00 EDT, Height, 8... Start Date: 05/24/22 Status: Ordered meclizine 25 mg oral tablet 1 tablet = 25 mg, By Mouth, 3 times a day, PRN for dizziness, # 30 tablet, 0 Refills, Maintenance, 05/31/22 13:26:00 EDT, Tablet, [facility]/pharmacy #[id number], Partial fill upon patient request if the prescription is for a schedule II opioid drug., 149.86, cm,... Start Date: 05/31/22 Status: Ordered Metoprolol Tartrate 25 mg oral tablet 1 tablet, By Mouth, 2 times a day, # 180 tablet, 1 Refills, Maintenance, 08/08/23 20:44:00 EST, [facility], 150, cm, 08/07/23 10:20:00 EST, Height, 81, [...] Replace Required Details, Route to Pharmacy Electronically, [id number]... Start Date: 01/17/23 Status: Ordered Vitamin B2 [...] Team Personnel Name: Jesika Hua RN Position: [facility] RN Member Role: Primary Care Nurse Name: Milton Gross NP Position: [facility] PCO Associate Professional Member Role: PCP Address: Address: [address] [place] [address]- Care Team Related Persons Name: YASMIN FISHER Address: home [address] [address]
--- OUTSIDE RECORDS SUMMARY | 2024-01-22 08:52 | XMS_ITS | Continuity of Care Document ---
Author Organization [facility] Address [address] [place] [address]- Care Team Providers Care Financial Counselor Name Role Phone Renato MORRISON, Milton Loyola Primary Care Physicia n [place] [facility] [place] 09/25/23 - 10/25/[address] [address]- Allergies, Adverse Reactions, Alerts Substance Reaction Severity Status traMADol tongue numbness--but she fell near [facility] Active Immunizations Given and Recorded Vaccine Date Status Refusal Reason [id number] bivalent booster vax 07/17/22 Given influenza virus vaccine, inactivated 07/17/22 Give n influenza virus vaccine, inactivated 06/01/20 Give n influenza virus vaccine, inactivated 05/13/17 Give n SARS-CoV-2 (COVID-19) mRNA BNT-162b2 vac 1 05/25/21 Given SARS-CoV-2 (COVID-19) mRNA BNT-162b2 vac 2 05/04/21 Given hepatitis B adult vaccine 01/18/16 Given pneumococcal 23-valent vaccine 01/18/16 Given tetanus/diphtheria/pertussis, acel(Tdap) 01/18/16 Given 1Result Comment: NS DIL LOT [id number] EXP 11/2022 2Result Comment: DILUENT LOT#: [id number] EXP: 11/14 MFG: FRESENSIUS Medications albuterol 0.083% [...] Instructions, PJE KRYSTEN TABLETA MARIANNE MIRANDA by [facility] continue, # 30 tablet, 11 Refills, 07/04/22 11:40:00 EST, [facility]/pharmacy #[id number], 149.8, cm, 07/04/22 11:20:00 EST, Height, 83.3, kg, 06/14/22 18:50:00 EDT, Dry Weight Start Date: 07/04/22 Status: Ordered atorvastatin 10 mg oral tablet See Instructions, TAKE 1 TABLET BY MOUTH EVERY DAY, # 90 tablet, 3 Refills, Maintenance, 10/14/23 10:38:00 EST, [facility]81, 150, cm, 09/16/23 11:00:00 EST, Height, 81, [...] Instructions, # 150 each, Refills 11, Tot. [id number], Maintenance, Use for times a days with [...] Weight Start Date: 05/24/22 Status: Ordered ergocalciferol 42190 iu oral capsule 1, capsule, By Mouth, Every week, # 4 capsule, Refills 4, Maintenance, 10/22/22 15:42:00 EST, [facility] Electronically, [facility] 55702, 149.8, cm, 07/22/22 9:38:00 EST, Height, 83.3, kg, 06/14/22 18:50:00 EDT, Dry Weight Start Date: 10/22/22 Status: Ordered Escitalopram = 20 mg, By Mouth, Daily, 0 Refills, Maintenance, 05/13/19 15:46:32 EDT Start Date: 05/13/19 Status: Ordered Eucerin Plus topical lotion 1 application, Topically, 2 times a day, PRN for dry skin, # 600 mL, 11 Refills, Maintenance, 01/17/23 13:42:00 EDT, Lotion, [id number] Partial fill upon patient request if the prescription is for a schedule II opioid drug., 1 application Top... Start Date: 01/17/23 Stop Date: 01/12/24 Status: Ordered Eucerin Plus topical lotion 1 application, Topically, 2 times a day, PRN for dry skin, # 600 mL, 1 Refills, Maintenance, 05/24/22 14:28:00 EDT, Lotion, [facility]/pharmacy #[id number], Partial fill upon patient request [...] 1 Refills, Maintenance, 07/02/23 15:57:00 EST, [facility]/pharmacy #[id number], 145, cm, 06/03/23 15:58:00 EDT, Height, 81, kg, 01/05/23 21:32:00 EDT,... Start Date: 07/02/23 Status: Ordered Insulin Lispro Scot KwikPen 100 units/mL injectable solution = 15 units, Subcutaneous Infusion, 3 times a day before meals, with breakfast and lunch rotate injection sites. stop novolog due insurance issues. in honduran, # 15 mL, 11 Refills, Maintenance, 08/07/23 12:49:00 EST, [facility]/pharmacy #[id number], Partial fill... Start Date: 08/07/23 [...] 12:17:00 EST, 09/15/24 12:17:00 EST, Solution, [facility]/pharmacy #[id number], 149.8, cm, 07/22/22 9:38:00 EST, Height, 83.3, kg, 06/14/22 18:50:00 EDT, DrJenny. Start Date: 09/15/24 Stop Date: 09/10/25 Status: Ordered loratadine 10 mg oral tablet See Instructions, TAKE 1 TABLET BY MOUTH EVERY DAY, # 30 tablet, Refills 5, Maintenance, 10/14/23 10:38:00 EST, Instructions Replace Required Details, Route to Pharmacy Electronically, [id number], 150, cm, 09/16/23 11:00:00 EST, Height, 81, kg, 1... Start Date: 10/14/23 Status: Ordered loratadine 10 mg oral tablet See Instructions, TOME KRYSTEN TABLETA TODOS LOS MIRANDA, # 30 tablet, Refills 5, Tot. Refills 5, 05/24/2214:42:00 EDT, Instructions Replace Required Details, Route to Pharmacy Electronically, [facility]/pharmacy#[id number], 149.86, cm, 05/24/22 13:53:00 EDT, Height, 8... Start Date: 05/24/22 Status: Ordered meclizine 25 mg oral tablet 1 tablet = 25 mg, By Mouth, 3 times a day, PRN for dizziness, # 30 tablet, 0 Refills, Maintenance, 05/31/22 13:26:00 EDT, Tablet, [facility]/pharmacy #[id number], Partial fill upon patient request if the prescription is for a schedule II opioid drug., 149.86, cm,... Start Date: 05/31/22 Status: Ordered Metoprolol Tartrate 25 mg oral tablet 1 tablet, By Mouth, 2 times a day, # 180 tablet, 1 Refills, Maintenance, 08/08/23 20:44:00 EST[id number], 150, cm, 08/07/23 10:20:00 EST, Height, 81, kg, 07/03/23 14:25:00 EST, Dry Weight Start Date: 08/08/23 Status: Ordered mupirocin 2% topical ointment See Instructions, 1 APPLICATION TOPICALLY 3 TIMES A DAY,X7 DAYS, # 22 Gm, 0 Refills, Maintenance, 10/14/23 10:38:00 EST, [facility] 74256, 30, 1 APPLICATION TOPICALLY 3 TIMES A [...] Replace Required Details, Route to Pharmacy Electronically, [id number]... Start Date: 01/17/23 Status: Ordered senna - oral tablet 2 tablet, By Mouth, Daily at bedtime, PRN for constipation, for 30 days, # 60 tablet, 1 Refills, Acute 12/13/23 11:40:00 EDT, 10/14/23 11:40:00 EST, Tablet, [facility]/pharmacy #[id number], Partial fill upon patient request if the prescription is for a schedule II... Start Date: 10/14/23 Stop Date: 12/13/23 Status: Ordered sulindac 200 mg oral tablet 1 tablet = 200 mg, By Mouth, 2 times a day, with food or milk, # 60 tablet, 1 Refills, Maintenance,10/14/23 11:39:00 EST, Tablet, [facility]/pharmacy #[id number], Partial fill upon patient request if the prescription is for a schedule II opioid drug., 150, cm, 02... Start Date: 10/14/23 Status: Ordered Vitamin B2 100 mg oral tablet See Instructions, ASAD SHAWA ANTHONY VECJEREMI AL JULIAN, # 60 tablet, 4 Refills, [...] Team Personnel Name: Jesika Hua RN Position: [facility] RN Member Role: Primary Care Nurse Name: Milton Gross NP Position: [facility] PCO Associate Professional Member Role: PCP Address: Address: [address] [place] [address]- Care Team Related Persons Name: YASMIN FISHER Address: home [address] [place] [id number]
--- OUTSIDE RECORDS SUMMARY | 2024-01-22 08:52 | XMS_ITS | Continuity of Care Document ---
Author Organization [facility] Address [address] [place] [address]- Care Team Providers Care Public Health Program Manager Name Role Phone Renato MORRISON, Milton Loyola Primary Care Physicia n Encounter [facility] Date(s): 08/08/23 - 09/07/[address] [address]- Allergies, Adverse Reactions, Alerts Substance Reaction Severity Status traMADol tongue numbness--but she fell near [facility] Active Immunizations Given and Recorded Vaccine Date Status Refusal Reason [id number] bivalent booster vax 07/17/22 Given influenza virus vaccine, inactivated 07/17/22 Give n influenza virus vaccine, inactivated 06/01/20 Give n influenza virus vaccine, inactivated 05/13/17 Give n SARS-CoV-2 (COVID-19) mRNA BNT-162b2 vac 1 05/25/21 Given SARS-CoV-2 (COVID-19) mRNA BNT-162b2 vac 2 05/04/21 Given hepatitis B adult vaccine 01/18/16 Given pneumococcal 23-valent vaccine 01/18/16 Given tetanus/diphtheria/pertussis, acel(Tdap) 01/18/16 Given 1Result Comment: NS DIL LOT [id number] EXP 11/2022 2Result Comment: DILUENT LOT#: [id number] EXP: 11/14 MFG: FRESENSIUS Medications albuterol 0.083% [...] Maintenance, 03/06/23 16:52:00 EDT, Tablet, [facility]/pharmacy #[id number], Partial fill upon patient request if theprescription is for a schedule II opioid drug., 145... Start Date: 03/06/23 Stop Date: 06/04/23 Status: Ordered Aspirin Low Dose 81 mg oral delayed release tablet See Instructions, PJE KRYSTEN TABLETA TOLOZADAS by [employer] records continue, # 30 tablet, 11 Refills, [...] Instructions, # 150 each, Refills 11, Tot. [id number], Maintenance, Use for times a days with insulin. DM E119, 05/31/22 13:26:00 EDT, Compound, 149.86, cm, 05/27/22 9:58:00 EDT, Height, 85.7, kg, 07/24... Start Date: 05/31/22 Status: Ordered benzonatate 100 mg oral capsule 1 capsule = 100 mg, By Mouth, 3 times a day, # 42 capsule, 0 Refills, Maintenance, 08/07/23 10:40:00 EST, [facility]/pharmacy #[id number], Partial fill upon [...] Weight Start Date: 05/24/22 Status: Ordered ergocalciferol 55893 iu oral capsule 1, capsule, By Mouth, Every week, # 4 capsule, Refills 4, Maintenance, 10/22/22 15:42:00 [id number], 149.8, cm, 07/22/22 9:38:00 EST, Height, 83.3, kg, 06/14/22 18:50:00 EDT, Dry Weight Start Date: 10/22/22 Status: Ordered Escitalopram = 20 mg, By Mouth, Daily, 0 Refills, Maintenance, 05/13/19 15:46:32 EDT Start Date: 05/13/19 Status: Ordered Eucerin Plus topical lotion 1 application, Topically, 2 times a day, PRN for dry skin, # 600 mL, 11 Refills, Maintenance, 01/17/23 13:42:00 EDT, Lotion, [facility]/pharmacy #[id number], Partial fill upon patient request if the prescription is for a schedule II opioid drug., 1 application Top... Start Date: 01/17/23 Stop Date: 01/12/24 Status: Ordered Eucerin Plus topical lotion 1 application, Topically, 2 times a day, PRN for dry skin, # 600 mL, 1 Refills, Maintenance, 05/24/22 14:28:00 EDT, Lotion, [facility]/pharmacy #[id number], Partial fill upon [...] Refills, Maintenance, 07/02/23 15:57:00 EST, [facility]/pharmacy #[id number], 145, cm, 06/03/23 15:58:00 EDT, Height, 81, kg, 01/05/23 21:32:00 EDT,... Start Date: 07/02/23 Status: Ordered Insulin Lispro Scot KwikPen 100 units/mL injectable solution = 15 units, Subcutaneous Infusion, 3 times a day before meals, with breakfast and lunch rotate injection sites. stop novolog due insurance issues. in stateless, # 15 mL, 11 Refills, Maintenance, 08/07/23 12:49:00 EST, [facility]/pharmacy #[id number], Partial fill... Start Date: 08/07/23 [...] EST, 09/15/24 12:17:00 EST, Solution, [facility]/pharmacy #[id number], 149.8, cm, 07/22/22 9:38:00 EST, Height, 83.3, kg, 06/14/22 18:50:00 EDT, .. Start Date: 09/15/24 Stop Date: 09/10/25 Status: Ordered loratadine 10 mg oral tablet See Instructions, ASAD BURKETT TODOS LOS MIRANDA, # 30 tablet, Refills 5, Tot. Refills 5, 05/24/2214:42:00 EDT, Instructions Replace Required Details, Route to Pharmacy Electronically, [facility]/pharmacy#[id number], 149.86, cm, 05/24/22 13:53:00 EDT, Height, 8... Start Date: 05/24/22 Status: Ordered meclizine 25 mg oral tablet 1 tablet = 25 mg, By Mouth, 3 times a day, PRN for dizziness, # 30 tablet, 0 Refills, Maintenance, 05/31/22 13:26:00 EDT, Tablet, [facility]/pharmacy #[id number], Partial fill upon patient request if the prescription is for a schedule II opioid drug., 149.86, cm,... Start Date: 05/31/22 Status: Ordered Metoprolol Tartrate 25 mg oral tablet 1 tablet, By Mouth, 2 times a day, # 180 tablet, 1 Refills, Maintenance, 08/08/23 20:44:00 EST, [facility], 150, cm, 08/07/23 10:20:00 EST, Height, 81, [...] Replace Required Details, Route to Pharmacy Electronically, [id number]... Start Date: 01/17/23 Status: Ordered Vitamin B2 [...] Team Personnel Name: Jesika Hua RN Position: Kal RN Member Role: Primary Care Nurse Name: Milton Gross NP Position: [facility] Associate Professional Member Role: PCP Address: Address: [address] [place] [address]- Care Team Related Persons Name: YASMIN FISHER Address: home [address] [address]
--- OUTSIDE RECORDS SUMMARY | 2024-01-22 08:52 | XMS_ITS | Continuity of Care Document ---
Author Organization [facility] Address [address] [place] [address]- Care Team Providers Care Chief Medical Officer Name Role Phone Renato PROTECTIVE SIGNAL INSTALLER, Milton Loyola Primary Care Physicia n Encounter [facility] R [id number] Date(s): 09/16/23 - 10/16/23 [facility] [address] [place] [address]- Attending Physician: Admisha, Jimenez Admitting Physician: Admtr, Ar8 Referring Physician: Admtr, Ar8 Allergies, Adverse Reactions, Alerts Substance Reaction Severity Status traMADol tongue numbness--but she fell near [place] Active Immunizations Given and Recorded Vaccine Date Status Refusal Reason [id number] bivalent booster vax 07/17/22 Given influenza virus vaccine, inactivated 07/17/22 Give n influenza virus vaccine, inactivated 06/01/20 Give n influenza virus vaccine, inactivated 05/13/17 Give n SARS-CoV-2 (COVID-19) mRNA BNT-162b2 vac 1 05/25/21 Given SARS-CoV-2 (COVID-19) mRNA BNT-162b2 vac 2 05/04/21 Given hepatitis B adult vaccine 01/18/16 Given pneumococcal 23-valent vaccine 01/18/16 Given tetanus/diphtheria/pertussis, acel(Tdap) 01/18/16 Given 1Result Comment: NS DIL LOT [id number] EXP 11/2022 2Result Comment: DILUENT LOT#: [id number] EXP: 11/14 MFG: FRESENSIUS Medications albuterol 0.083% inhalation solution 3 mL = 2.5 mg, Inhalation, Every 6 hours, PRN for wheezing, # 25 each, 11 Refills, Maintenance, 01/17/23 13:45:00 EDT, Solution, [id number], 145, cm, 01/17/23 13:04:00 EDT, Height, 81, [...] oral delayed release tablet See Instructions, [facility], # 30 tablet, 11 Refills, 07/04/22 11:40:00 EST, [facility]/pharmacy #[id number], 149.8, cm, 07/04/22 11:20:00 EST, Height, 83.3, kg, 06/14/22 18:50:00 EDT, Dry Weight Start Date: 07/04/22 Status: Ordered atorvastatin 10 mg oral tablet See Instructions, TAKE 1 TABLET BY MOUTH EVERY DAY, # 90 tablet, 3 Refills, Maintenance, 10/14/23 10:38:00 EST, [id number], 150, cm, 09/16/23 11:00:00 EST, Height, 81, kg, 07/03/23 14:25:00 EST,Dry Weight Start Date: 10/14/23 Status: Ordered atorvastatin 10 mg oral tablet See Instructions, ASAD MIRANDA, # 30 tablet, 11 Refills, 05/24/22 14:42:00 EDT, [facility]/pharmacy #[id number], 149.86, cm, 05/24/22 13:53:00 EDT, Height, 85.7, kg, 07/24/21 14:26:00 EST, Dry Weight Start Date: 05/24/22 Status: Ordered BD Ultra-Fine pen needles, BERTRAM 4 mm x 32 G BD Ultra-Fine pen needles, BERTRAM 4 mm x 32 G, See Instructions, # 150 each, Refills 11, Tot. [id number], Maintenance, Use for times a days with [...] Weight Start Date: 05/24/22 Status: Ordered ergocalciferol 76286 iu oral capsule 1, capsule, By Mouth, Every week, # 4 capsule, Refills 4, Maintenance, 10/22/22 15:42:00 EST, [facility] Electron[facility], [facility], 149.8, cm, 07/22/22 9:38:00 EST, Height, 83.3, kg, 06/14/22 18:50:00 EDT, Dry Weight Start Date: 10/22/22 Status: Ordered Escitalopram = 20 mg, By Mouth, Daily, 0 Refills, Maintenance, 05/13/19 15:46:32 EDT Start Date: 05/13/19 Status: Ordered Eucerin Plus topical lotion 1 application, Topically, 2 times a day, PRN for dry skin, # 600 mL, 11 Refills, Maintenance, 01/17/23 13:42:00 EDT, Lotion, [facility]/pharmacy #[id number], Partial fill upon patient request if the prescription is for a schedule II opioid drug., 1 application Top... Start Date: 01/17/23 Stop Date: 01/12/24 Status: Ordered Eucerin Plus topical lotion 1 application, Topically, 2 times a day, PRN for dry skin, # 600 mL, 1 Refills, Maintenance, 05/24/22 14:28:00 EDT, Lotion, [facility]/pharmacy #[id number], [...] tablet, 1 Refills, Maintenance, 07/02/23 15:57:00 EST, [facility]/pharmacy #[id number], 145, cm, 06/03/23 15:58:00 EDT, Height, 81, kg, 01/05/23 21:32:00 EDT,... Start Date: 07/02/23 Status: Ordered Insulin Lispro Scot KwikPen 100 units/mL injectable solution = 15 units, Subcutaneous Infusion, 3 times a day before meals, with breakfast and lunch rotate injection sites. stop novolog due insurance issues. in monegasque, # 15 mL, 11 Refills, Maintenance, 08/07/23 12:49:00 EST, [facility]/pharmacy #[id number], Partial fill... Start Date: 08/07/23 Stop [...] 09/10/25 12:17:00 EST, 09/15/24 12:17:00 EST, Solution, [facility]/pharmacy #[id number], 149.8, cm, 07/22/22 9:38:00 EST, Height, 83.3, kg, 06/14/22 18:50:00 EDT, Start Date: 09/15/24 Stop Date: 09/10/25 Status: Ordered loratadine 10 mg oral tablet See Instructions, TAKE 1 TABLET BY MOUTH EVERY DAY, # 30 tablet, Refills 5, Maintenance, 10/14/23 10:38:00 EST, Instructions Replace Required Details, Route to Pharmacy Electronically, [id number], 150, cm, 09/16/23 11:00:00 EST, Height, 81, kg, 1... Start Date: 10/14/23 Status: Ordered loratadine 10 mg oral tablet See Instructions, TOME KRYSTEN TABLETA TODOS LOS MIRANDA, # 30 tablet, Refills 5, Tot. Refills 5, 05/24/2214:42:00 EDT, Instructions Replace Required Details, Route to Pharmacy Electronically, [facility]/pharmacy#[id number], 149.86, cm, 05/24/22 13:53:00 EDT, Height, 8... Start Date: 05/24/22 Status: Ordered meclizine 25 mg oral tablet 1 tablet = 25 mg, By Mouth, 3 times a day, PRN for dizziness, # 30 tablet, 0 Refills, Maintenance, 05/31/22 13:26:00 EDT, Tablet, [facility]/pharmacy #[id number], Partial fill upon patient request if the prescription is for a schedule II opioid drug., 149.86, cm,... Start Date: 05/31/22 Status: Ordered Metoprolol Tartrate 25 mg oral tablet 1 tablet, By Mouth, 2 times a day, # 180 tablet, 1 Refills, Maintenance, 08/08/23 20:44:00 EST, [facility], 150, cm, 08/07/23 10:20:00 EST, Height, 81, kg, 07/03/23 14:25:00 EST, Dry Weight Start Date: 08/08/23 Status: Ordered mupirocin 2% topical ointment See Instructions, 1 APPLICATION TOPICALLY 3 TIMES A DAY,X7 DAYS, # 22 Gm, 0 Refills, Maintenance, 10/14/23 10:38:00 EST, [facility], 30, 1 APPLICATION TOPICALLY 3 TIMES A [...] Replace Required Details, Route to Pharmacy Electronically, [id number]... Start Date: 01/17/23 Status: Ordered senna - oral tablet 2 tablet, By Mouth, Daily at bedtime, PRN for constipation, for 30 days, # 60 tablet, 1 Refills, Acute 12/13/23 11:40:00 EDT, 10/14/23 11:40:00 EST, Tablet, [facility]/pharmacy #[id number], Partial fill upon patient request if the prescription is for a schedule II... Start Date: 10/14/23 Stop Date: 12/13/23 Status: Ordered sulindac 200 mg oral tablet 1 tablet = 200 mg, By Mouth, 2 times a day, with food or milk, # 60 tablet, 1 Refills, Maintenance,10/14/23 11:39:00 EST, Tablet, [id number], Partial fill upon patient request if the prescription is for a schedule II opioid drug., 150, cm, 02... Start Date: 10/14/23 Status: Ordered Vitamin B2 100 mg oral tablet See Instructions, ASAD BASHIR TABLETA DOS VECES AL JULIAN, # 60 tablet, 4 Refills, 07/02/23 15:57:00 EST,[facility]/pharmacy #[id number], 145, cm, 06/03/23 15:58:00 EDT, Height, [...] Team Personnel Name: Javid AGUILAR, Jesika Position: [facility] RN Member Role: Primary Care Nurse Name: Milton Gross NP Position: [facility] [place] [facility] Associate Professional Member Role: PCP Address: Address: [address] [place] [address]- Care Team Related Persons Name: YASMIN FISHER Address: home [address] [place] [id number]
[2024-01-22 09:01] LABS: Glucose, Whole Blood 120 mg/dL (60-115)
[2024-01-22] MEDS: Aprepitant 32 MG/4.4 ML VIAL IVPUSH (09:20)
[2024-01-22] MEDS: Lactated Ringers 1,000 ML 999 ML IV (09:27)
--- NOTE | 2024-01-22 10:08 | P.CONAN_ITS ---
[facility] Active Problems Active Problems: All Active Problems Preop cardiovascular exam (Acute) Heart palpitations (Acute) DERECK (obstructive sleep apnea) (Acute) Diabetes (Acute) Anxiety (Acute) Depression (Acute) Insulin dependent type 2 diabetes mellitus (Acute) Obesity (BMI 30-39.9) (Acute) HTN (hypertension) (Acute) Hypercholesterolemia (Acute) Past Medical History Medical History Sleep apnea Anxiety Depression Insulin dependent type 2 diabetes mellitus History of pulmonary embolism Hypercholesterolemia HTN (hypertension) Obesity (BMI 30-39.9) Functional capacity: independent ambulation Patient : No Family History Family History Mother Diabetes Heart problem Hypertension Father Mental health disorder Daughter No problems noted. Son No problems noted. Son No problems noted. 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 Stop: 01/22/24 10:45 Last Admin: 01/22/24 09:27 Dose: 999 mls/hr Lactated Ringer's (Lr) 1,000 mls @ 100 mls/hr IVCONT .Q10H [facility] Home Medications ?Medication ?Instructions ?Recorded ?Confirmed ?Last Taken ?Type atorvastatin 10 mg tablet 10 mg PO DAILY 03/04/23 01/15/24 01/11/24 History ergocalciferol (vitamin D2) 1,250 1,250 mcg PO QWEEK 03/04/23 01/15/24 01/11/24 History mcg (50,000 unit) capsule escitalopram oxalate 20 mg tablet 20 mg PO DAILY 03/04/23 01/15/24 01/11/24 History insulin glargine 100 unit/mL (3 27 unit subcut BEDTIME 03/04/23 01/22/24 01/21/24 History mL) subcutaneous pen (Lantus Solostar U-100 Insulin) insulin lispro 100 unit/mL 15 unit subcut TIDAC PRN elevated 03/04/23 01/15/24 01/11/24 History subcutaneous half-unit pen glucose metoprolol tartrate 25 mg tablet 25 mg PO BID 03/04/23 01/15/24 01/22/24 History aspirin 81 mg tablet,delayed 81 mg PO DAILY 06/04/23 01/15/24 01/11/24 History release buspirone 7.5 mg tablet 7.5 mg PO BID 06/04/23 01/15/24 01/11/24 History sulindac 200 mg tablet 200 mg PO BID 12/22/23 01/15/24 01/11/24 History Exam Height,Weight and Vital Signs: Height 4 ft 11 in Weight 72.575 kg Last Vital Signs Temp 97 F 01/22/24 08:53 Pulse 79 01/22/24 08:53 Resp 18 01/22/24 08:53 BP 154/90 H 01/22/24 08:53 Pulse Ox 97 01/22/24 08:53 O2 Del Method Room Air 01/22/24 08:53 Pertinent Lab Results Pertinent Lab Results: Laboratory Tests 01/16/24 01/22/24 08:10 08:57 WBC 8.5 RBC 5.45 Hgb 15.5 Hct 45.9 MCV 84.2 MCH 28.4 MCHC 33.8 RDW 13.0 Plt Count 286 MPV 9.7 Immature Gran % (Auto) 0.5 H Neut % (Auto) 60.7 Lymph % (Auto) 28.4 [place] % (Auto) 6.6 Eos % (Auto) 2.9 Baso % (Auto) 0.9 Lymph # (Auto) 2.4 [place] # (Auto) 0.6 Eos # (Auto) 0.3 Baso # (Auto) 0.1 Abs Immat Gran (auto) 0.04 H Absolute Neuts (auto) 5.2 Absolute Nucleated RBC 0.000 Nucleated RBC % (auto) 0.0 PT 12.1 INR 1.0 APTT 36.1 Sodium 142 Potassium 3.8 Chloride 104 Carbon Dioxide 27 Anion Gap 15 BUN 17 H Creatinine 0.84 Estim Creat Clear Calc TNP Estimated GFR > 60 POC Glucose 120 H Random Glucose 146 H Estimat Average Glucose 174 Hemoglobin A1c % 7.7 H Insulin Level 12 Calcium 9.7 Total Bilirubin 0.9 AST 34 H ALT 43 H Alkaline Phosphatase 125 H C-Reactive Protein 3.11 H Total Protein 7.4 Albumin 4.3 Triglycerides 125 Cholesterol 187 LDL Cholesterol, Calc 123 H HDL Cholesterol 39 L TSH 1.07 Blood Type O Positive Antibody Screen NEGATIVE Airway Mallampati Class: III TM Dist: >3cm Neck ROM: Full Heart: RRR Lungs: CTA Assessment and Plan Assessment Anesthesia Assessment: Anesthesia Plan Discussed Final Anesthetic Review Family History of Problems with Anesthesia: No History of Problems with Anesthesia: No ASA Class: III Final Preanesthetic Review: Meds/Allgs Chart Reviewed, Consent Obtained/Reviewed and Anes Risks/Benef Reviewed Patient Risk: Intermediate Procedure Risk: Intermediate Anesthetic Plan Anesthetic Plan: GA Disposition: Standard PACU
--- NOTE | 2024-01-22 10:26 | P.BOP_ITS ---
Brief Operative Note Date of Service: 01/22/24 Pre-op diagnosis: Severe obesity with comorbidities (see below) Post-op diagnosis: same Procedure: INITIAL PATIENT BMI ON PRESENTATION AT OUR OFFICE: 36 kg/m2 LAST BMI BEFORE SURGERY: 32.8 kg/m2 COMORBIDITIES: sleep apnea on CPAP, history of PE, insulin dependent diabetes, hypertension, hyperlipidemia, DJD, depression, anxiety, GERD, liver steatosis ?The patient presented to the Weight Management Program with significant obesity that was negatively impacting the patient's comorbidities as listed above.? The program is a phased program with a special focus on preoperative medical weight management to promote substantial weight loss and prepare the patients for the second phase of the program: bariatric surgery. The patient participated in an intensive weekly lifestyle ?intervention and exercise program during which the patient ?has lost between the initial office visit and the last preoperative visit 15.6lbs, or 8.75% of initial actual body weight. It was deemed appropriate for the patient to now have bariatric surgery. In light of the current Covid-19 pandemic and the well documented strong association of obesity and increased risk of worse outcomes if infected with Covid-19 (REFERENCES: https://pubmed.ncbi.nlm.nih.gov/59250531/ ,? https://pubmed.ncbi.nlm.nih.gov/58559157/ ), any delay in undergoing bariatric surgery may lead to the patient's worsening health condition and increased?risk of more severe Covid-19 disease if infected. In addition a recent?study from [facility] published in [facility] on 08/20/2021 (file: ///[email or web address]:/[id number].pdf) found that, among patients with obesity, substantial weight loss achieved with surgery was associated with improved outcomes of COVID-19 infection. The findings suggest that obesity can be a modifiable risk factor for the severity of COVID-19 infection. In addition, the patient met the BMI-criteria for bariatric surgery based on the BMI on initial presentation. The patient should not be penalized for achieving such weight loss because ?it is not sustainable long-term without surgical intervention and it was achieved in preparation for bariatric surgery ?under my direction and based on my published research ([email or web address]).pdf and? https://www.soard.org/article/[email or web address](93)60365-X/pdf ) ?that a 10% preoperative weight loss improves long-term weight loss after surgery and reduces perioperative complications.? Insurance carriers such as [facility] have endorsed my recommendations ?and have included in their policies criteria to include a 10% preoperative weight loss requirement. PROCEDURE: Esophago-gastroscopy, laparoscopic sleeve gastrectomy and laparoscopic gastropexy INDICATIONS: This is a 53 year-old female who was electively scheduled for laparoscopic, possibly open sleeve gastrectomy. The risks and complications of the procedure were discussed with the patient in advance, particularly the possibility of ; pulmonary embolism; staple line leak; bleeding; GERD; cardiac, pulmonary, or renal complications; as well as long-term problems such as insufficient weight loss, vitamin deficiency, strictures, or ulcers. The patient understood all the risks, and was in agreement to proceed with surgery. DESCRIPTION OF PROCEDURE: After informed consent was obtained from the patient, the patient was given preoperative antibiotics, and was transferred to the operating room. After successful induction of general anesthesia, pneumatic compression devices were placed on both lower extremities. An upper endoscopy was performed next. The oropharynx and esophagus appeared to be within normal limits. There was no diaphragmatic hernia present consistent with the findings of the preoperative upper GI. The stomach was entered. Then after all fluid and air were suctioned and the stomach was fully decompressed, the scope was withdrawn and secured in the mid esophagus. The patient was then prepped and draped in the usual sterile manner, and abdominal access was established at the right upper quadrant with the Colby technique. A 12 mm blunt port was inserted, and the abdomen was insufflated with CO2 to a pressure of 15 mmHg. Under direct visualization, additional ports were placed, specifically two 5 mm Versi-step ports to the left upper quadrant, and a 5 mm Versi-Step port to the right upper quadrant. 1% lidocaine plain was used to infiltrate all port sites as well as all fascia defects. ? PLEASE REVIEW BEFORE TO INCLUDE THIS SENTENCE: Using the EndoClose suture passer device, I placed a #1 Polysorb tie across the falciform ligament in order to retract it up against the abdominal wall and prevent injury of the ligament with our instruments during the procedure. ? PLEASE REVIEW BEFORE TO INCLUDE THIS SENTENCE: There were adhesions in the abdomen from previous involving the omentum and the anterior abdominal wall. Those were lysed completely with the ultrasonic device. Following that, the patient was placed in a steep reverse Trendelenburg position. An additional 5 mm port was placed to the right flank for the Mediflex retractor that was used to retract the left lobe of the liver. The gastro-esophageal fat pad was opened with the ultrasonic device (Thunderbeat, Olympus) and the anterior esophagus and hiatus were exposed. The angle of His was opened with the ultrasonic device the fundus of the stomach from any diaphragmatic and splenic attachments. I then opened the gastrocolic ligament between the transverse colon and the greater curvature of the stomach with the ultrasonic device to enter the lesser sac and facilitate the ligation of the short gastric vessels. I started at a mid-point along the greater curvature and using the Thunderbeat, all short gastric vessels were divided all the way to the angle of His until the left ajlil was completely dissected at its entirety. I then divided the gastro-colic ligament distally to a distance of about 3-4 cm proximal to the pylorus. The stomach was then divided transversely with one Endo PRETTY-45 purple and four PRETTY-60 articulating purple loads using the SIGNIA stapler and loads. Every effort was made that the gastric sleeve had a tubular shape and an even caliber throughout. Once the sleeve resection was completed, the staple line of the gastric sleeve was reinforced with Hemoclips. The resected stomach was retrieved without difficulty from the Colby port. A gastropexy was then performed in order to prevent postoperative GERD and partial gastric volvulus. Several interrupted 2.0 Surgidac sutures were placed between the sleeve's staple line and the previously divided greater omentum and gastro-colic ligament using the Endo-Stitch device. ?An upper endoscopy was performed. There was no narrowing at the GE junction. The scope was easily advanced all the way to the pylorus which was clearly visualized. There was no narrowing anywhere and the sleeve's caliber was even throughout. The sleeve's staple line was inspected and there was no evidence of ischemia, bleeding or dehiscence. At that point the gastroscope was withdrawn from the patient?s mouth while we were decompressing the bowel and the stomach from any remaining air. I looked into the lesser sac to see how the sleeve was situating and it was situating well. There was no bleeding from the staple line, spleen, or short gastric vessels. The Mediflex retractor was removed, and the undersurface of the liver was inspected and there was no bleeding. The patient was placed in supine position. I closed the fascial defect of the 12 mm port site with a figure of eight #1 Polysorb suture. Then 30cc Ropivacaine plain with 10 mg of Dexamethasone were used to infiltrate the fascial closure as well as all skin incisions. A total of 7ml Zynrelef was applied in the Colby wound. At this point, the abdomen was deflated, all ports were removed under direct vision, and no bleeding was noted from any of the port sites. The skin incisions were irrigated with saline and were closed with 4-0 absorbable monofilament sutures. Steri-Strips and OpSites were used to cover all incisions. The patient was extubated and was transferred in stable condition to the recovery room for further care. I was present and performed all shetty parts of the procedure. Mr Demarco was the customer support assistant. There were no residents to assist with this case. Joey Lyles MD, PhD, FACS Surgeon: Werner Lyles MD Anesthesia: GETA, local and other (TAP block and 7ml Zynrelef) Was an Pre Fabricator used for this Procedure?: No Pre Fabricator: Giovanni Demarco Estimated blood loss (mL): 10 IV fluids (mL): 2,500 Urine output (mL): 0 Pathology: other (Stomach) Condition: stable Disposition: PACU
--- NOTE | 2024-01-22 10:28 | PC.NURSE ---
one liter of fluids given in preop pt just voided
--- NOTE | 2024-01-22 10:33 | P.PNGS_ITS ---
Subjective Subjective Date of Service: 01/23/24 Interval history: Feels well. Mild incisional pain. She is tolerating phase 1 bariatric diet Physical Exam 2 Vital Signs: Vital Signs: Last Vital Signs Temp 97 F 01/22/24 08:53 Pulse 79 01/22/24 08:53 Resp 18 01/22/24 08:53 BP 154/90 H 01/22/24 08:53 Pulse Ox 97 01/22/24 08:53 O2 Del Method Room Air 01/22/24 08:53 BMI result Body Mass Index 32.3 GI: Inspection: Yes normal to inspection, Yes incision (clean, dry and intact) and Yes obesity Palpation (GI): Soft to palpation Extrem: Right lower extremity: normal to inspection (no calf tenderness) L eft lower extremity: normal to inspection (no calf tenderness) Objective Data Active Medications Fentanyl (Fentanyl Citrate/Pf 100 Mcg/2 Ml Vial) 25 mcg IVPUSH Q5M PRN; Protocol PRN Reason: Pain, Moderate(Pain Scale 4-6) Stop: 01/22/24 16:14 Lactated Ringer's (Lr) 1,000 mls @ 999 mls/hr IV .Q1H1M [facility] Stop: 01/22/24 10:45 Last Admin: 01/22/24 09:27 Dose: 999 mls/hr Documented By: CHERYL Lactated Ringer's (Lr) 1,000 mls @ 100 mls/hr IVCONT .Q10H [facility] Ondansetron HCl (Ondansetron Hcl 4 Mg/2 Ml Vial) 4 mg IVPUSH ONCE PRN PRN Reason: Nausea and Vomiting Stop: 01/22/24 16:14 Labs 01/23/24 05:30 01/23/24 05:30 Labs: Laboratory Results - last 24 hr 01/22/24 08:57 POC Glucose 120 H Procedures Date of Service Date of Service: 01/23/24 Progress Note: A&P Assessment and plan (1) Obesity (BMI 30-39.9): Status: Acute Assessment and Plan: s/p laparoscopic sleeve gastrectomy and gastropexy Doing well Will check am labs and if OK the patient will be discharged home (2) BMI 32.0-32.9,adult: Status: Acute (3) HTN (hypertension): Status: Acute (4) Insulin dependent type 2 diabetes mellitus: Status: Acute (5) Hypercholesterolemia: Status: Acute (6) Anxiety: Status: Acute (7) Depression: Status: Acute (8) DERECK (obstructive sleep apnea): Status: Acute (9) DJD (degenerative joint disease): Status: Acute (10) GERD (gastroesophageal reflux disease): Status: Acute (11) Steatosis, liver: Status: Acute (12) History of pulmonary embolism: Status: Acute (13) S/P laparoscopic sleeve gastrectomy: Status: Acute Time Spent With Patient Time: Total time managing care of this patient today ____ minutes. Quality Stroke Does the patient have a stroke diagnosis?: No VTE Prior VTE?: Yes VTE Risk Level:: Medical - moderate - high VTE Device Contraindication: N/A - Device Ordered VTE Drug Contraindication: Treatment Not Indicated
--- NOTE | 2024-01-22 13:45 | P.DS_ITS ---
DS: Providers Provider Date of Service: 01/23/24 Date of admission: 01/22/24 08:45 Primary care physician: Milton Gross NP DS: Diagnosis Discharge Diagnosis (1) Obesity (BMI 30-39.9): Status: Acute (2) BMI 32.0-32.9,adult: Status: Acute (3) HTN (hypertension): Status: Acute (4) Insulin dependent type 2 diabetes mellitus: Status: Acute (5) Hypercholesterolemia: Status: Acute (6) Anxiety: Status: Acute (7) Depression: Status: Acute (8) DERECK (obstructive sleep apnea): Status: Acute (9) DJD (degenerative joint disease): Status: Acute (10) GERD (gastroesophageal reflux disease): Status: Acute (11) Steatosis, liver: Status: Acute (12) History of pulmonary embolism: Status: Acute DS: Summary Hospital Course Hospital Course: ADMITTING DIAGNOSIS: obesity, iddm2, anxiety, depression, htn, hld, dereck ? DISCHARGE DIAGNOSIS: same, s/p laparoscopic sleeve gastrectomy ? PAST SURGICAL HISTORY: cesarian section, hysterectomy ? PROCEDURE: upper endoscopy, laparoscopic sleeve gastrectomy ? DISCHARGE SUMMARY: ? History of Present Illness: ? The patient is a?53 year-old woman with a BMI of??37.3 kg/m2 and associated co- morbidities as described above. The patient had extensive work-up,lost?25.3 lbs preoperatively and was electively scheduled for laparoscopic, possible open sleeve gastrectomy and gastropexy. Risks and complications of the surgery were discussed with the patient in advance, particularly the possibility of , pulmonary embolism, anastomotic leak, bleeding, bowel injury, GERD, cardiac, renal or pulmonary complications. The patient understood all the risks and was in agreement with the surgical plan. ? Hospital Course: ? The patient underwent an uneventful laparoscopic sleeve gastrectomy with gastropexy on the day of admission. Postoperatively, the patient was transferred to the surgical floor. The patient received IV Acetaminophen and IV dilaudid for pain control. Patient was started on bariatric phase 1 diet POD #0. On postoperative day one, the patient was feeling well without nausea, vomiting, fevers, or tachycardia. The patient had some mild incisional pain and the abdomen was soft. ? On the morning of postoperative day one, the patient was continued on 1 ounce of water or ice every half hour. During the day, the patient did fairly well, having some incisional pain, but able to ambulate adequately and to tolerate liquids well. ? Since the patient is doing well, we decided that the patient was ready to be discharged. The patient was given instructions to follow-up with me next week and to call my office for any fever over 101, persistent abdominal pain, nausea, vomiting, GERD, symptoms of DVT such as calf tenderness, or leg swelling, or pulmonary embolism such as chest pain or shortness of breath. The patient was also instructed to drink 40-60 ounces of liquids per day using the 1-ounce cups. The patient had been given prescriptions for Tylenol for pain, Zofran prn for nausea, and pantoprazole and carafate previously. The patient was encouraged to ambulate and use the incentive spirometer. The patient was allowed to shower, but no baths, and encouraged to stay active at home. All of these instructions were given to the patient personally. All questions were answered and the patient understood all instructions, the instructions were also given to the patient in print. Time Attestation Total time managing care of this patient today: 25 mintues. Discharge Coordination Time (in mins): 25 Quality: Safe Use of Opioids Does Pt have an Active Cancer Diagnosis on the Problem List?: No Quality: Stroke Does the patient have a stroke diagnosis?: No Physical Exam Vital Signs: Vital Signs: Last Vital Signs Temp 97 F 01/22/24 08:53 Pulse 79 01/22/24 08:53 Resp 18 01/22/24 08:53 BP 154/90 H 01/22/24 08:53 Pulse Ox 97 01/22/24 08:53 O2 Del Method Room Air 01/22/24 08:53 BMI result Body Mass Index 32.3 DS: Data Data Completed and Pending Pending studies at discharge: Pending at discharge 01/22/24 12:18 Surgical [PTH] Routine Labs on day of discharge: Laboratory Results - last 24 hr 01/22/24 08:57 POC Glucose 120 H Discharge Plan Discharge Anticipated Discharge Date/Time: 01/23/24 10:00 Patient Disposition: Home, Self-Care Discharge Diagnosis: s/p laparoscopic sleeve gastrectomy Referrals: Milton Gross NP [Primary Care Provider] - 1 Week Discharge Medications: Continued escitalopram oxalate 20 mg tablet 20 mg PO DAILY atorvastatin 10 mg tablet 10 mg PO DAILY buspirone 7.5 mg tablet 7.5 mg PO BID pantoprazole 40 mg tablet,delayed release (DR/EC) 40 mg PO DAILY Qty: 90 0RF sucralfate 100 mg/mL suspension 10 ml PO BID Qty: 600 2RF ondansetron 4 mg tablet,disintegrating 4 mg PO Q6H Qty: 20 0RF Rx Instructions: Only take one every 12 hours as needed if you have nausea Held zolpidem 10 mg tablet 10 mg PO BEDTIME PRN (Reason: insomnia) Hold Instructions: Resume on 01/26/24. melatonin 5 mg tablet 10 mg PO BEDTIME Hold Instructions: Resume on 01/30/24. metoprolol tartrate 25 mg tablet 25 mg PO BID Hold Instructions: Resume on 01/24/24. Check your blood pressure every morning as soon as you wake up and send it to Dr. Lyles. Do no take the blood pressure medication if the blood pressure is below 120/70. Wait every day to hear back from Dr. Lyles before you take the medication. insulin glargine [Lantus Solostar U-100 Insulin] 100 unit/mL (3 mL) insulin pen 27 unit subcut BEDTIME Hold Instructions: Resume on 01/23/24. Check your blood sugar daily. Do not use Lantus if blood sugar below 150 Patient Comments: TOOK ONLY HALF HER DOSE YESTERDAY PER INSTRUCTION Discontinued insulin lispro 100 unit/mL insulin pen, half-unit 15 unit subcut TIDAC PRN (Reason: elevated glucose) Discharge Orders: Discharge Order (Routine); Ordered 01/23/24 Ordered By: Werner Lyles Activity on Discharge: No heavy lifting Stand Alone Forms: Patient Portal Discharge page Print Language: Beninese Care Plan Goals: weight loss Health Concerns: obesity Plan of Treatment: No tub baths, sex or returning to work until discussed at first post op appointment. No exercise, alcohol, tobacco or illegal drug use. Continue to use incentive spirometer hourly while awake. Walk in home for 5- 10 minutes every 2 hours during the first week. Follow all instructions in the bariatric handbook and call with any questions.Discharge Instructions 1. Please call your doctor or come back to the emergency room should any new symptoms arise. 2. You will receive a courtesy call from [facility] 24-48 hours after discharge. 3. Activity: abstain from alcohol, practice limited stair climbing, no bending, no driving, no exercise, no illicit substances, no lifting, no sex, no tub bath, no work. 4. Diet: continue as discussed with Dr. Lyles. 5. Dressing Change/Wound Care: Your incision is covered by clear bandages and guaze underneath. If the area is tender, you may apply an ice pack for short intervals (no more than 20 minutes on, followed by at least 20 minutes off). Do not apply heat. Do not use creams, lotions, or topical antibiotics unless instructed to do so by your surgeon. These can cause infection or allergic reaction. 6. Call your doctor if: - Your temperature exceeds 101.5 F - You experience excessive pain or swelling - You have an unexpected reaction to medication - You have excessive bleeding - You experience continued vomiting/nausea - Your incision begins to separate - Your incision shows signs of infection such as increased redness, swelling, excessive pain, heat, or drainage (light blood or clear fluid is normal) 7. General instructions: No lifting greater than 5 lbs for 1 week and not more than 20lbs the next 3?weeks. No driving until seen at the office in 5-7 days after surgery. If you do not move your bowels in the next 2 days, please tell?Dr. Lyles. Please walk around your home every hour or two to prevent blood clots from forming in your legs. You do not need to wake from sleeping to walk. Please sleep in a bed or couch to prevent kinking at the hips and knees. Please take your incentive spirometer (your lung cow rider) home with you and use it for the next few days to prevent pneumonia. You may shower, no hot tubs, baths or swimming pools.?Please follow the post op diet instructions you are?given by Dr Lyles? and text me daily at 5-6pm for an update.?If you have any issues or concerns or questions please communicate this to him via text.? The Celebrate shakes have all of the bariatric vitamins you need if you consume these shakes. If you are drinking other protein shakes, you will need to purchase the Celebrate multivitamins and calcium that are available in the hospital gift shop on the first floor of the [facility].??Do not take anything without first discussing with Dr Lyles. Please make sure you are consuming at least 40 ounces of fluids per day starting the?day AFTER your discharge from the hospital. Always drink 1-2 ml per minute using the 5ml?syringe. If you drink faster you may experience?bloating,?gas pain, burping, nausea or heartburn. In that case please slow down your pace and use the syringe to?understand better the?proper?pace and volume of drinking. Do not hesitate to contact the office with any questions at . The patient's medical history has been reviewed and they are considered low risk for post op DVT and therefore DVT prophylaxis is not considered necessary. Travel after surgery was reviewed. The patient has not disclosed any travel plans during the first 30 days after surgery and they have been advised that within the first 30 days after surgery any bus, plane, train or car travel over 2 hours in duration is contraindicated due to the possibility of developing blood clots from immobility. Any travel, needs to include periods of ambulation of 10 minutes in duration every 2 hours.? The patient was instructed to discuss any plans for travel during this period with their bariatric surgeon. Assessment: stable s/p laparoscopic sleeve gastrectomy
[2024-01-22 15:44] LABS: Hematocrit 43.6 % (37.0-47.0); Hemoglobin 14.8 g/dl (12.0-16.0)
[2024-01-22 16:01] LABS: Anion Gap 17 (12-20); Blood Urea Nitrogen 6 mg/dL (9-16); Calcium 9.4 mg/dL (8.4-10.2); Carbon Dioxide 25 mmol/L (22-29); Chloride 104 mmol/L (96-108); Creatinine Clr Calc Pharmacy 71.6; Estimated Glomerular Filt Rate > 60; Glucose Random 219 mg/dL (60-115); Potassium 3.9 mmol/L (3.3-5.1); Sodium 142 mmol/L (135-145)
[2024-01-22 16:36] LABS: Glucose, Whole Blood 213 mg/dL (60-115)
[2024-01-22] MEDS: ceFAZolin Sodium/Dextrose,Iso 2 GM/50 ML PIGGYBACK IV (17:05)
[2024-01-22] MEDS: Insulin Lispro 100 UNIT/ML 3 ML VIAL SUBCUT ×2 (17:06→20:57)
[2024-01-22] MEDS: 0.9 % Sodium Chloride Flush 3 ML SYRINGE IVFLUSH (17:08)
[2024-01-22] MEDS: Lactated Ringers 1,000 ML 100 ML IVCONT (17:08)
[2024-01-22] MEDS: Acetaminophen 1,000 MG/100 ML PIGGYBACK 16.7 MG IV ×2 (17:19→22:20)
--- NOTE | 2024-01-22 17:37 | PHA.MEDREC ---
Pharmacy Consult ? Medication Reconciliation Pharmacy has completed the medication reconciliation. Spoke to patient and confirmed medication list. Patient takes lantus 27 units at bedtime, humalog 15 units ticac, no longer takes aspirin, vitamin D nor sulindac. She hasn't had any medication for 10 days except pantoprazole this morning and melatonin last night.
[2024-01-22 20:33] LABS: Glucose, Whole Blood 231 mg/dL (60-115)
[2024-01-22] MEDS: Famotidine/PF 20 MG/2 ML VIAL IVPUSH (20:57)
[2024-01-22] MEDS: busPIRone HCl 5 MG TABLET 7.5 MG PO (20:58)
[2024-01-23] MEDS: Lactated Ringers 1,000 ML 100 ML IVCONT (03:11)
[2024-01-23 03:18] VITALS: BP 150/79; PULSE 79; RESP 16; TEMP 36.2; O2SAT 96
[2024-01-23] MEDS: Acetaminophen 1,000 MG/100 ML PIGGYBACK 16.7 MG IV (04:20)
[2024-01-23 04:50] VITALS: RESP 18
[2024-01-23 06:27] LABS: MANUAL DIFF FLAG NO
[2024-01-23 06:33] LABS: Hemoglobin 15.2 g/dl (12.0-16.0); Imm Gran Abs Auto 0.07 X10*3/uL (0.00-0.03); Imm Gran Pct Auto 0.7 % (0.0-0.4); Lymphocytes Absolute Auto 1.1 X10*3/uL (1.2-4.9); Lymphocytes Percent Auto 10.1 % (20-40); Mean Corpuscular HGB Conc 33.8 g/dl (31.0-35.0); Mean Corpuscular Hemoglobin 28.3 pg (27.0-33.0); Mean Corpuscular Volume 83.8 fL (80.0-98.0); Mean Platelet Volume 9.9 fL (9.4-12.3); Monocytes Absolute Auto 0.2 X10*3/uL (0.1-1.2); Monocytes Percent Auto 2.2 % (2-11); Neutrophils Absolute Auto 9.3 x10*3/uL (2.0-8.3); Platelet Count 253 X10*3/uL (160-400); Red Blood Count 5.37 X10*6/uL (4.20-5.50); Red Cell Distribution Width 12.6 % (11.0-16.0); White Blood Count 10.7 X10*3/uL (4.8-10.8)
[2024-01-23 06:46] LABS: Anion Gap 16 (12-20); Blood Urea Nitrogen 8 mg/dL (9-16); Calcium 9.9 mg/dL (8.4-10.2); Carbon Dioxide 27 mmol/L (22-29); Chloride 101 mmol/L (96-108); Creatinine Clr Calc Pharmacy 72.8; Estimated Glomerular Filt Rate > 60; Glucose Random 154 mg/dL (60-115); Potassium 4.1 mmol/L (3.3-5.1); Sodium 140 mmol/L (135-145)
[2024-01-23 07:55] VITALS: BP 162/79; PULSE 89; RESP 16; TEMP 36.3; O2SAT 94
[2024-01-23 07:58] LABS: Glucose, Whole Blood 149 mg/dL (60-115)
[2024-01-23] MEDS: Escitalopram Oxalate 20 MG TABLET PO (09:42)
[2024-01-23] MEDS: Famotidine/PF 20 MG/2 ML VIAL IVPUSH (09:42)
[2024-01-23] MEDS: busPIRone HCl 5 MG TABLET 7.5 MG PO (09:42)
[2024-01-23 10:14] VITALS: O2SAT 94
--- NOTE | 2024-01-23 11:33 | MHC.CM.PN ---
EMR REVIEWED, CM MET W/PT WHO REPORT SHE LIVES ALONE, USES A CPAP AND HAS A CANE/WALKER SHE USES WHEN DIZZY HOWEVER DOES NOT USE THEM ALL THE TIME, PT HAS A [employer] 36HR/2 WKS AND IT IS HER NIECE, PT EDUCATED ON AND DECLINES TO COMPLETE A HCP, PCP O FILE VERIFIED. PT DISCHARGING HOME TODAY W/OUPT FOLLOW UP IN SURGEONS OFFICE, FAMILY FOR TRANSPORT
--- NOTE | 2024-01-23 15:58 | HO.POSTANES ---
Post Anesthesia Evaluation Post Anesthesia Evaluation Date of Service: 01/23/24 Vital Signs: Vital Signs Temp Pulse Resp BP Pulse Ox O2 Del Method 01/23/24 10:14 94 Room Air 01/23/24 07:55 97.3 F 89 16 162/79 H 94 Room Air 01/23/24 04:50 18 Anesthesia: General Endotracheal-GETA Mental Status: Awake Pain Control: Satisfactory Nausea/Vomiting: None Hydration: Adequate Anesthesia-Related Issues: No Anes. Related Issues
== END 2024-01-23 11:17 | disposition home or self-care (01) | DRG 403 ==
LOC: HO.SSSA 13:48 → HO.S3 13:53
PROVIDERS: Physician Assistant Surgical; Admitting Provider Surgery; PCP Nurse Practitioner Family; Visit Provider Surgery
PROC: 0DB64Z3 Excision of Stomach, Percutaneous Endoscopic Approach, Vertical (ICD-10-PCS; CPT 43845; principal; 2024-01-22 10:40)
DX: E66.01 Morbid (severe) obesity due to excess calories (principal); K76.0 Fatty (change of) liver, not elsewhere classified; E11.9 Type 2 diabetes mellitus without complications; E78.00 Pure hypercholesterolemia, unspecified; M19.90 Unspecified osteoarthritis, unspecified site; F32.A Depression, unspecified; F41.9 Anxiety disorder, unspecified; K21.9 Gastro-esophageal reflux disease without esophagitis; G47.33 Obstructive sleep apnea (adult) (pediatric); Z79.4 Long term (current) use of insulin; Z86.711 Personal history of pulmonary embolism; Z79.899 Other long term (current) drug therapy; Z68.32 Body mass index [BMI] 32.0-32.9, adult
CPT/HCPCS: 36415; 80048; 80053; 80061; 82947; 83036; 83525; 84443; 85014; 85018; 85025; 85610; 85730; 86140; 86850; 86900; 86901; 88305; 88307; 88342; A4649; C9088; C9145; J0131; J0690; J1100; J1170; J2250; J2371; J2405; J2704; J2795; J3010; J7120

== ENCOUNTER → 2024-01-22 08:45 | Outpatient (BNV) | payer OTHER, SELFPAY | PROVIDERS: Admitting Provider Surgery; PCP Nurse Practitioner Family; Visit Provider Surgery | DX: E66.9 Obesity, unspecified (principal); Z68.32 Body mass index [BMI] 32.0-32.9, adult; Z98.84 Bariatric surgery status | CPT/HCPCS: 43659; 43775; 99024; 99499 ==

== ENCOUNTER 2024-01-30 10:19 | Outpatient (AMB) | payer OTHER, SELFPAY ==
--- NOTE | 2024-01-30 10:42 | A.OFFVIS_ITS ---
VS Expanded 01/30/24 10:59 BP 137/72 Blood Pressure Location Rt brachial Blood Pressure Position Sitting Pulse 80 Pulse Source Pulse Oximeter Temp 97.1 F Temperature Source Tympanic Pulse Oximetry 95 Oxygen Delivery Method Room Air Height 4 ft 11 in Weight 154 lb 6.4 oz BMI 31.2 Body Fat % 37.6 Body Fat Mass 58.0 Fat Free Mass 96.4 Visceral Fat Rating 9.0 Body Water % 44.3 Body Water Mass 68.4 Muscle Mass/Score 91.4 Basal Metabolic Rate/Score 1,325 Intake Visit Reasons: (OV) PO LSG 01/22/24 Television News Anchor Required: Yes Television News Anchor Name: office cmi Allergies tramadol Allergy (Mild, Verified 01/16/24 08:33) WEAKNESS Medication List - Last Reconciled 01/30/24 by HUEY Guevara atorvastatin 10 mg PO DAILY buspirone 7.5 mg PO BID escitalopram oxalate 20 mg PO DAILY melatonin 10 mg PO BEDTIME pantoprazole 40 mg PO DAILY sucralfate 10 mL PO BID zolpidem 10 mg PO BEDTIME PRN HPI Comments Details: Patient is a pleasant 53-year-old female who returns to the office today in follow-up. She is approximately 1 week status post sleeve gastrectomy performed on 01/22/2024. She was supposed to be doing 3 celebrate 4 in 1 shakes with 1 scoop each however over the last 3 days she has only been taking 1. She has additionally been drinking approximately 30 oz of water per day. She has had several episodes of low blood sugar and 1 episode of low blood pressure. She was in communication with Dr. Lyles about this and she was transitioned to regular Gatorade without any further episodes. She did not communicate with him the decrease in her shake intake per day. [facility] Medical History (Updated 01/24/24 @ 00:04 by Orin Vasquez) Preop cardiovascular exam GERD (gastroesophageal reflux disease) DJD (degenerative joint disease) Sleep apnea Anxiety Depression Insulin dependent type 2 diabetes mellitus History of pulmonary embolism Hypercholesterolemia HTN (hypertension) Obesity (BMI 30-39.9) Surgical History (Updated 01/30/24 @ 10:46 by Magi Barth CMA) Hx of laparoscopic partial gastrectomy H/O vein stripping Hx of hysterectomy Hx of section Family History Mother Diabetes Heart problem Hypertension Father Mental health disorder Daughter No problems noted. Son No problems noted. Son No problems noted. Social History Household Members: None Housing: Apartment Are you a primary human services care specialist to a significant other at home: No Do you presently have visiting nurse or other home services: No Alcohol intake: never Patient Tobacco Use Status: Never used Tobacco service: No Physical Exam Vital Signs: Last Vital Signs Temp 97.1 F 01/30/24 10:59 Pulse 80 01/30/24 10:59 BP 137/72 01/30/24 10:59 Pulse Ox 95 01/30/24 10:59 Oxygen Delivery Method Room Air 01/30/24 10:59 BMI result Body Mass Index 31.2 GI Inspection: Yes incision (Clean, dry, intact.) Assessment & Plan Assessment & Plan (1) S/P laparoscopic sleeve gastrectomy: Code(s): Z98.84 - Bariatric surgery status Category: Surgical Plan: POD 8 s/p LSG on 01/22/[address] Lyles Weight loss prior to surgery was 25.3 pounds or 13.6 % TBWL. Original weight on 03/04/23 was 184.8 pounds and op weight was 159.5 pounds. Be sure to text Dr Lyles exactly 1 week after surgery your weight from yo ur home scale so he can adjust your meal plan. Continue meal plan until f/u w Giovanni in 2 weeks May shower, no submersion in bath for another week Continue abdominal binder with activity and exercise for the next 2 weeks. Exercise prior to surgery was treadmill and may resume No abdominal exercises for 6 weeks post operatively Will be emailed link to post op video for review Reminded of the pace of drinking, 2 mL per minute, 1 oz/15 min. Discussed the critical importance of discussing with Dr. Lyles any problems she has having with the meal plan. She will do so. We discussed the importance of following the meal plan exactly and communicating if there is any problems. Discussed the importance of having at least 40 oz of fluid per day. She will communicate with him and she will additionally try the chocolate celebrate 4 in 1 as she did not like the vanilla.
[2024-01-30 10:59] VITALS: BP 137/72; PULSE 80; TEMP 36.2; O2SAT 95; BMI 31.2
== END 2024-01-30 11:21 | disposition home or self-care (01) ==
PROVIDERS: PCP Nurse Practitioner Family; Visit Provider Physician Assistant Surgical
DX: Z98.84 Bariatric surgery status (principal)
CPT/HCPCS: 99024

== ENCOUNTER → 2024-01-30 10:19 | Outpatient (BNVA) | payer OTHER, SELFPAY | PROVIDERS: PCP Nurse Practitioner Family; Visit Provider Physician Assistant Surgical | DX: E66.9 Obesity, unspecified (principal); Z68.31 Body mass index [BMI] 31.0-31.9, adult; Z90.3 Acquired absence of stomach [part of] | CPT/HCPCS: 99212 ==

== ENCOUNTER 2024-04-06 10:59 | Outpatient (AMB) | payer OTHER, SELFPAY ==
--- NOTE | 2024-04-06 11:03 | A.OFFVIS_ITS ---
VS Expanded 04/06/24 11:13 BP 121/69 Blood Pressure Location Rt brachial Blood Pressure Position Sitting Pulse 90 Pulse Source Pulse Oximeter Temp 97.0 F Temperature Source Temporal Artery Scan Pulse Oximetry 97 Oxygen Delivery Method Room Air Height 4 ft 11 in Weight 144 lb 12.8 oz BMI 29.2 Body Fat % 36.1 Body Fat Mass 52.2 Fat Free Mass 92.4 Visceral Fat Rating 8.0 Body Water % 45.3 Body Water Mass 65.4 Muscle Mass/Score 87.8 Basal Metabolic Rate/Score 1,269 Intake Visit Reasons: (ov) PO LSG 01/22/24 Allergies tramadol Allergy (Mild, Verified 04/06/24 11:07) WEAKNESS HPI Comments Details: This?a?53?yo female who is s/p LSG without hiatal hernia repair on?01/22/2024. Presents for 2.5 months post op visit. Weight today is 144.8 pounds, with a BMI of 29.2. There has been a 40 pound weight loss,(initial weight 184.8 pounds) since starting the program on 03/04/2023 reflecting a 21.6 % total body weight loss and a weight loss of 14.7 pounds since surgery (operative weight 159.5 pounds) reflecting a 9.2 % TBWL since surgery. No complaints of nausea, emesis, abdominal pain or reflux. Reports infrequent but normal bowel movements every 1- 2 days and uses stool softeners regularly. Taking celebrate MVI She changed the plan on her own to premier protein 3 weeks ago without any direction. Wants to start food. Present meal plan includes: Supposed to be doing celebrate 4 in 1 1 scoop in 8 oz of almond milk at 8-10, 2- 4, 8-10 and 2 zone perfect bars at 11-1 and 5-7 Using premier protein 3 shakes 1 scoop each and 2 ZP bars Drinking 48-64 bottles water ? Exercise routine includes: 3-4 days, treadmill, 150-200 walk outside 3-4 days per week, not tracking calories COUNT INCLUDES THE [facility] Medical History (Updated 01/24/24 @ 00:04 by Background Daemon) Preop cardiovascular exam GERD (gastroesophageal reflux disease) DJD (degenerative joint disease) Sleep apnea Anxiety Depression Insulin dependent type 2 diabetes mellitus History of pulmonary embolism Hypercholesterolemia HTN (hypertension) Obesity (BMI 30-39.9) Surgical History Hx of laparoscopic partial gastrectomy H/O vein stripping Hx of hysterectomy Hx of section Family History Mother Diabetes Heart problem Hypertension Father Mental health disorder Daughter No problems noted. Son No problems noted. Son No problems noted. Social History Household Members: None Housing: Apartment Are you a primary animal care giver to a significant other at home: No Do you presently have visiting nurse or other home services: No Alcohol intake: never Patient Tobacco Use Status: Never used Tobacco service: No Physical Exam Const General: healthy appearing and no acute distress Resp Effort & Inspection: normal respiratory effort Auscultation: clear to auscultation bilaterally Cardio Rate: regular rate Rhythm: regular rhythm GI Auscultation: normal bowel sounds Extrem General: Yes normal to inspection Assessment & Plan Assessment & Plan (1) S/P laparoscopic sleeve gastrectomy: Code(s): Z98.84 - Bariatric surgery status Category: Surgical Plan: Change meal plan to Premier protein powder 1 scoop in 8 oz almond milk at 8-10, 11-1 zone perfect bar 2-4 meal 5-6 pm 4 forks protein and 4 forks veg Increase exercise on the treadmill to 400 calories per day
[2024-04-06 11:13] VITALS: BP 121/69; PULSE 90; TEMP 36.1; O2SAT 97; BMI 29.2
== END 2024-04-06 11:52 | disposition home or self-care (01) ==
PROVIDERS: PCP Nurse Practitioner Family; Visit Provider Physician Assistant Surgical
DX: Z98.84 Bariatric surgery status (principal)
CPT/HCPCS: 99024

== ENCOUNTER → 2024-04-06 10:59 | Outpatient (BNVA) | payer OTHER, SELFPAY | PROVIDERS: PCP Nurse Practitioner Family; Visit Provider Physician Assistant Surgical | DX: Z48.815 Encounter for surgical aftercare following surgery on the digestive system (principal); Z98.84 Bariatric surgery status | CPT/HCPCS: 99212 ==

== ENCOUNTER 2024-07-09 10:32 | Outpatient (AMB) | payer OTHER, SELFPAY ==
--- NOTE | 2024-07-09 10:38 | A.OFFVIS_ITS ---
VS Expanded 07/09/24 10:48 BP 134/74 Blood Pressure Location Rt brachial Blood Pressure Position Sitting Pulse 84 Pulse Source Pulse Oximeter Temp 97.3 F Temperature Source Temporal Artery Scan Pulse Oximetry 97 Oxygen Delivery Method Room Air Height 4 ft 11 in Weight 136 lb 9.6 oz BMI 27.6 Body Fat % 33.6 Body Fat Mass 45.8 Fat Free Mass 90.6 Visceral Fat Rating 8.0 Body Water % 47.0 Body Water Mass 64.2 Muscle Mass/Score 86.0 Basal Metabolic Rate/Score 1,237 Intake Visit Reasons: (ov)PO LSG 01/22/24 Product Representative Required: Yes Product Representative Services: Product Representative Present Product Representative Name: hospital cmi Allergies tramadol Allergy (Mild, Verified 07/09/24 10:42) WEAKNESS Medication List - Last Reconciled 07/09/24 by HUEY Guevara atorvastatin 10 mg PO DAILY buspirone 7.5 mg PO BID escitalopram oxalate 20 mg PO DAILY melatonin 10 mg PO BEDTIME zolpidem 10 mg PO BEDTIME PRN HPI Comments Details: This?a?53?yo female who is s/p LSG without hiatal hernia repair on?01/22/2024. Presents for 6 months post op visit. Weight today is 136.6 pounds, with a BMI of 27.6. There has been a 48.2 pound weight loss,(initial weight 184.8 pounds) since starting the program on 03/04/2023 reflecting a 26 % total body weight loss and a weight loss of 22.9 pounds since surgery (operative weight 159.5 pounds) reflecting a 14.3 % TBWL since surgery. No complaints of nausea, emesis, abdominal pain or reflux. Reports constipation, BM every 3 days. Taking celebrate MVI She cis inquiring about the removal of extra skin of her abdomen. She states she gets a rash to the skin under her abdomen, 2-3 x per month. she reports odor, itch, discomfort. SHe has to shower several times per day and she uses otc lotion. Rash recurs. Present meal plan includes: Premier protein powder 1 scoop in 8 oz almond milk at 8-10, 11-1 zone perfect bar 2-4 meal 5-6 pm 4 forks protein and 4 forks veg Drinking 48-64 bottles water ? Exercise routine includes: 3 days, treadmill, 200-250 calories walk outside 2 days per week, not tracking calories, 30 minuets [facility] Medical History (Updated 01/24/24 @ 00:04 by Orin Vasquez) Preop cardiovascular exam GERD (gastroesophageal reflux disease) DJD (degenerative joint disease) Sleep apnea Anxiety Depression Insulin dependent type 2 diabetes mellitus History of pulmonary embolism Hypercholesterolemia HTN (hypertension) Obesity (BMI 30-39.9) Surgical History Hx of laparoscopic partial gastrectomy H/O vein stripping Hx of hysterectomy Hx of section Family History Mother Diabetes Heart problem Hypertension Father Mental health disorder Daughter No problems noted. Son No problems noted. Son No problems noted. Social History Household Members: None Housing: Apartment Are you a primary residential care facility manager to a significant other at home: No Do you presently have visiting nurse or other home services: No Alcohol intake: never Patient Tobacco Use Status: Never used Tobacco service: No Physical Exam Const General: cooperative and no acute distress Orientation/consciousness: patient oriented x3 Resp Effort & Inspection: normal respiratory effort Auscultation: clear to auscultation bilaterally Cardio Rate: regular rate Rhythm: regular rhythm GI Inspection: Yes normal to inspection and Yes incision (well healed) Palpation (GI): Soft to palpation and no masses Neuro General: patient oriented x3 Assessment & Plan Assessment & Plan (1) S/P laparoscopic sleeve gastrectomy: Code(s): Z98.84 - Bariatric surgery status Category: Surgical Plan: Check six-month postop labs Continue meal plan Encouraged to increase exercise to 6 days per week, increasing calories burned to 300-350. Add clotrimazole as needed for rash Continue to text weekly with any questions or concerns as well as sending her weight. Return to clinic as scheduled Orders: Orders Complete Blood Count Auto Diff Today E11.9 - Type 2 diabetes mellitus without complications, E78.00 - Pure hypercholesterolemia, unspecified, I10 - Essential (primary) hypertension, K76.0 - Fatty (change of) liver, not elsewhere classified, Z98.84 - Bariatric surgery status Lipid Panel Today E11.9 - Type 2 diabetes mellitus without complications, E78.00 - Pure hypercholesterolemia, unspecified, I10 - Essential (primary) hypertension, K76.0 - Fatty (change of) liver, not elsewhere classified, Z98.84 - Bariatric surgery status IRON PROFILE Today E11.9 - Type 2 diabetes mellitus without complications, E78.00 - Pure hypercholesterolemia, unspecified, I10 - Essential (primary) hypertension, K76.0 - Fatty (change of) liver, not elsewhere classified, Z98.84 - Bariatric surgery status Zinc Today E11.9 - Type 2 diabetes mellitus without complications, E78.00 - Pure hypercholesterolemia, unspecified, I10 - Essential (primary) hypertension, K76.0 - Fatty (change of) liver, not elsewhere classified, Z98.84 - Bariatric surgery status C Reactive Protein Today E11.9 - Type 2 diabetes mellitus without complications, E78.00 - Pure hypercholesterolemia, unspecified, I10 - Essential (primary) hypertension, K76.0 - Fatty (change of) liver, not elsewhere classified, Z98.84 - Bariatric surgery status Vitamin B1 Today E11.9 - Type 2 diabetes mellitus without complications, E78.00 - Pure hypercholesterolemia, unspecified, I10 - Essential (primary) hypertension, K76.0 - Fatty (change of) liver, not elsewhere classified, Z98.84 - Bariatric surgery status TSH reflex Free T4 Today E11.9 - Type 2 diabetes mellitus without complications , E78.00 - Pure hypercholesterolemia, unspecified, I10 - Essential (primary) hypertension, K76.0 - Fatty (change of) liver, not elsewhere classified, Z98.84 - Bariatric surgery status Ferritin Today E11.9 - Type 2 diabetes mellitus without complications, E78.00 - Pure hypercholesterolemia, unspecified, I10 - Essential (primary) hypertension, K76.0 - Fatty (change of) liver, not elsewhere classified, Z98.84 - Bariatric surgery status Vitamin D 25-OH Total Today E11.9 - Type 2 diabetes mellitus without complications, E78.00 - Pure hypercholesterolemia, unspecified, I10 - Essential (primary) hypertension, K76.0 - Fatty (change of) liver, not elsewhere classified, Z98.84 - Bariatric surgery status Insulin Today E11.9 - Type 2 diabetes mellitus without complications, E78.00 - Pure hypercholesterolemia, unspecified, I10 - Essential (primary) hypertension, K76.0 - Fatty (change of) liver, not elsewhere classified, Z98.84 - Bariatric surgery status Hemoglobin A1c Today E11.9 - Type 2 diabetes mellitus without complications, E78.00 - Pure hypercholesterolemia, unspecified, I10 - Essential (primary) hypertension, K76.0 - Fatty (change of) liver, not elsewhere classified, Z98.84 - Bariatric surgery status Vitamin B12 and Folate Today E11.9 - Type 2 diabetes mellitus without complications, E78.00 - Pure hypercholesterolemia, unspecified, I10 - Essential (primary) hypertension, K76.0 - Fatty (change of) liver, not elsewhere classified, Z98.84 - Bariatric surgery status Vitamin A Today E11.9 - Type 2 diabetes mellitus without complications, E78.00 - Pure hypercholesterolemia, unspecified, I10 - Essential (primary) hypertensi on, K76.0 - Fatty (change of) liver, not elsewhere classified, Z98.84 - Bariatric surgery status Basic Metabolic Panel Today E11.9 - Type 2 diabetes mellitus without complic ations, E78.00 - Pure hypercholesterolemia, unspecified, I10 - Essential (primary) hypertension, K76.0 - Fatty (change of) liver, not elsewhere classified, Z98.84 - Bariatric surgery status Medications: New sennosides (senna) 17.2 mg (2 x 8.6 mg) PO BEDTIME 90 days 180 tabs 0RF constipation clotrimazole 1% (Antifungal (clotrimazole)) 1 appl topical BID 45 grams 3RF
[2024-07-09 10:48] VITALS: BP 134/74; PULSE 84; TEMP 36.3; O2SAT 97; BMI 27.6
== END 2024-07-09 11:22 | disposition home or self-care (01) ==
PROVIDERS: PCP Nurse Practitioner Family; Visit Provider Physician Assistant Surgical
DX: E66.3 Overweight (principal); Z68.27 Body mass index [BMI] 27.0-27.9, adult; Z90.3 Acquired absence of stomach [part of]; Z98.84 Bariatric surgery status
CPT/HCPCS: 99214; G2211

== ENCOUNTER → 2024-07-09 10:32 | Outpatient (BNVA) | payer OTHER, SELFPAY | PROVIDERS: PCP Nurse Practitioner Family; Visit Provider Physician Assistant Surgical | DX: L98.7 Excessive and redundant skin and subcutaneous tissue (principal); E11.9 Type 2 diabetes mellitus without complications; E78.00 Pure hypercholesterolemia, unspecified; K76.0 Fatty (change of) liver, not elsewhere classified; Z71.3 Dietary counseling and surveillance; Z98.84 Bariatric surgery status | CPT/HCPCS: 99212 ==

== ENCOUNTER 2024-10-13 08:58 | Outpatient (REF) | payer OTHER, SELFPAY ==
[2024-10-13 10:05] LABS: MANUAL DIFF FLAG NO
--- OUTSIDE RECORDS SUMMARY | 2024-10-13 10:13 | XMS_ITS | Clinical Summary ---
Author Organization [facility] Address [address] [place] [phone] Phone Care Team Providers Care Transportation Security Officer Name Role Phone Marin Mendoza MD Primary Care Provider [phone] Social History Tobacco Use Types Packs/Day Years [...] age to complete this topic Care Teams Transportation Security Officer Relationship Specialty Start Date End Date Marin Mendoza MD [address] [place] [address] PCP - General 11/22/14
--- OUTSIDE RECORDS SUMMARY | 2024-10-13 10:13 | XMS_ITS | Clinical Summary ---
Author Organization [address] Address [address] [place] [phone] Phone Care Team Providers Care Hide Buyer Name Role Phone Milton Rowe VESSEL OPERATOR Primary Ca re Provider Social History Tobacco Use Types Packs/Day Years Used Date Smoking Tobacco: Never Assessed Comments Unknown Sex and Gender Information Value Date Recorded Sex Assigned at Female 04/06/2023 2:54 AM EDT Legal Sex Female 12:25 AM EDT Gender Identity Female 04/06/2023 2:54 AM EDT Sexual Orientation Not on file Last Filed Vital Signs Vital Sign Reading Time Taken Comments Blood Pressure 115/56 04/06/2023 5:34 AM EDT Pulse 82 04/06/2023 5:34 AM EDT Temperature 36.6 ??C (97.8 ??F) 04/06/2023 5:34 AM ED T Respiratory Rate 17 04/06/2023 5:34 AM EDT Oxygen Saturation 95% 04/06/2023 5:34 AM EDT Inhaled Oxygen Concentration - - Weight 87 kg (191 lb 12.8 oz) 04/06/2023 1:17 AM EDT Height - - Body Mass Index - - Plan of Treatment Health Maintenance Due Date Last Done Comments HIV screening 1981 Hepatitis C screening 1986 Tetanus adult (Td q 10,TDAP once) 1988 Cervical cancer screening 1989 Breast cancer screening 2008 Lipid disorder screening 2008 Colon cancer screening, Colonoscopy 2013 Shingles vaccine (Shingrix) (1 of 2 - Shingrix (RZV) 2 Dose Standard Series) 2018 Influenza vaccine 03/25/2024 Covid-19 vaccine series ( season) 2024 Diabetes screening 04/06/2026 04/06/2023 RSV Discussion (1 - 1-dose 7 5+ series) 2043 Meningococcal Vaccine Aged Out No laura hollis eligible based on patient's age to complete this topic Pneumococcal Vaccine (2 - 49 years) Aged Out No longer eligible b ased on patient's age to complete this topic Procedures Procedure Name Priority Date/Time Associated Diagnosis Comments BASIC METABOLIC PANEL Timed 04/06/2023 12:37 AM EDT from Last 3 Months or Most Recently Relevant to Health Maintenance Results * (ABNORMAL) Basic metabolic panel (04/06/2023 12:37 AM EDT) Sodium 136 136 - 144 mmol/L 04/06/2023 1:27 AM [facility] Potassium 3.2(L) 3.3 - 5.3 mmol/L 04/06/2023 1:27 AM [facility] Chloride 96(L) 98 - 107 mmol/L 04/06/2023 1:27 AM [facility] CO2 28 20 - 30 mmol/L 04/06/2023 1:27 AM [facility] Anion Gap 12 7 - 17 04/06/2023 1:27 AM [facility] Glucose 183(H) 70 - 100 mg/dL 04/06/2023 1:27 AM [facility] BUN 17 6 - 20 mg/dL 04/06/2023 1:27 AM [facility] Creatinine 0.80 0.40 - 1.30 mg/dL 04/06/2023 1:27 AM [facility] Calcium 9.7 8.8 - 10.2 mg/dL 04/06/2023 1:27 AM [facility] BUN/Creatinine Ratio 21.3 8.0 - 23.0 04/06/2023 1:27 AM [facility] eGFR (Creatinine) >60 >=60 mL/min/1.7 3m2 04/06/2023 1:27 AM [facility] Comment: Values < 60 mL/min/1.73 m2 may indicate CKD if present for more than three months AND creatinine is at steady state. The eGFR provides a rough estimate of kidney function. On 04/09/22 all [facility] Clinical Labs and Epic began using a yan-kqel-deouo formula for estimating GFR called CKD-EPI Creatinine 2020. This equation reports eGFR based on creatinine, patient age, clinical sex, and is standardized to a body surface area of 1.73 m2. For the same creatinine, this new race-free eGFR will be lower than prior reported Black eGFR results and higher than prior Non-Black eGFR results. For further guidance, please refer to the CKD: Adult Job Placement Officer Signature pathway. Blood Venipuncture / Unknown 04/06/2023 12:37 AM EDT 04/06/2023 1:00 AM EDT us Garcia James MD LAB BLOOD ORDERABLE S Final Result Performing Organization Address City/State/[facility] Co de Phone Number [address] [phone] from Last 3 Months or Most Recently Relevant to Health Maintenance Insurance MEDICAID [place] [facility] [place] [facility] [place] [facility] [place] Care Teams Hide Buyer Relationship Specialty Start Date End [place] [address] PCP - General Family Medicine 04/06/23
[2024-10-13 10:25] LABS: Basophils Absolute Auto 0.1 X10*3/uL (0.0-0.2); Basophils Percent Auto 0.8 % (0-2); Eosinophils Absolute Auto 0.1 X10*3/uL (0.0-0.4); Eosinophils Percent Auto 1.4 % (0-4); Hematocrit 43.4 % (37.0-47.0); Hemoglobin 14.7 g/dl (12.0-16.0); Imm Gran Abs Auto 0.02 X10*3/uL (0.00-0.03); Imm Gran Pct Auto 0.3 % (0.0-0.4); Lymphocytes Percent Auto 31.6 % (20-40); Mean Corpuscular HGB Conc 33.9 g/dl (31.0-35.0); Mean Corpuscular Hemoglobin 29.3 pg (27.0-33.0); Mean Corpuscular Volume 86.5 fL (80.0-98.0); Mean Platelet Volume 9.3 fL (9.4-12.3); Monocytes Absolute Auto 0.3 X10*3/uL (0.1-1.2); Monocytes Percent Auto 4.7 % (2-11); Neutrophils Percent Auto 61.2 % (45-73); Platelet Count 240 X10*3/uL (160-400); Red Blood Count 5.02 X10*6/uL (4.20-5.50); Red Cell Distribution Width 11.9 % (11.0-16.0); White Blood Count 6.5 X10*3/uL (4.8-10.8)
[2024-10-13 10:38] LABS: Estimated Average Glucose 154 mg/dL; Hemoglobin A1C 203.7118 umol/L; Total Hemoglobin (HGBA1C) 3816.2536 umol/L
[2024-10-13 10:56] LABS: Anion Gap 12 (12-20); Blood Urea Nitrogen 18 mg/dL (9-16); C Reactive Protein < 0.10 mg/dL (< or = 0.50); Calcium 9.5 mg/dL (8.4-10.2); Carbon Dioxide 26 mmol/L (22-29); Chloride 107 mmol/L (96-108); Cholesterol 230 mg/dL (<200); Estimated Glomerular Filt Rate > 60; Glucose Random 104 mg/dL (60-115); HDL Cholesterol 49 mg/dL (>40); Iron 110 mcg/dL (30-160); LDL Cholesterol Calculated 159 mg/dL (<100); Percent Iron Saturation 44 % (15-50); Sodium 141 mmol/L (135-145); Total Iron Binding Capacity 248 mcg/dL (228-428); Triglycerides 112 mg/dL (<150); Unsaturated Iron Binding 138 ug/dL
[2024-10-13 11:20] LABS: Ferritin 277 ng/mL (10-250); TSH reflex Free T4 1.78 uIU/mL (0.32-4.0); Vitamin D 25-OH Total 31.9 ng/mL (>30)
[2024-10-13 11:25] LABS: Folate 14.5 ng/mL (> or = 4.0); Vitamin B12 535 pg/mL (200-900)
[2024-10-13 11:33] LABS: Insulin 10 uU/mL (2-29)
[2024-10-16 02:04] LABS: Zinc 79 mcg/dL (60-130)
[2024-10-16 16:59] LABS: Vitamin A 53 mcg/dL (38-98)
[2024-10-17 14:18] LABS: Vitamin B1 9 nmol/L (8-30)
== END 2024-10-13 08:59 | disposition home or self-care (01) ==
LOC: HO.LAB 08:58
PROVIDERS: PCP Nurse Practitioner Family; Visit Provider Physician Assistant Surgical
DX: Z98.84 Bariatric surgery status (principal); K76.0 Fatty (change of) liver, not elsewhere classified; E11.9 Type 2 diabetes mellitus without complications; I10 Essential (primary) hypertension; E78.00 Pure hypercholesterolemia, unspecified
CPT/HCPCS: 36415; 80048; 80061; 82306; 82607; 82728; 82746; 83036; 83525; 83540; 84425; 84443; 84590; 84630; 85025; 86140; 99212

== ENCOUNTER 2024-10-13 08:58 | Outpatient (AMB) | payer OTHER, SELFPAY ==
--- OUTSIDE RECORDS SUMMARY | 2024-10-13 09:07 | XMS_ITS ---
Author Name [facility] Organization Unknown Results Test Name/Text Value Interpretation Date Range Source BKR REFLEX URINE CULTURE See Comment Normal [id number] [facility] Hgb Ur Ql Strip.auto Negative Normal [id number] - [facility] Prot Ur Strip.auto-mCnc Trace Normal [id number] - [facility] Color Ur Auto Colorless Normal [id number] - [facility] Glucose Ur Strip.auto-mCnc 1+ Abnormal [id number] - [facility] Bilirub Ur Ql Strip.auto Negative Normal [id number] - [facility] Nitrite Ur Ql Strip.auto Negative Normal [id number] - [facility] Ketones Ur Strip.auto-mCnc 1+ Abnormal [id number] - [facility] Clarity Ur Refract.auto Clear Normal [id number] - [facility] WBC # Ur Strip Negative Normal [id number] - [facility] Urobilinogen Ur Strip-mCnc 2mg/dL Normal [id number] - [facility] pH Ur Strip.auto 7.5 Normal [id number] 5.5 - 7.5 [facility] Sp Gr Ur Refract.auto 1.05 Above high normal [id number] 1.005 - 1.03 [facility] Troponin T SerPl HS-mCnc 6ng/L Normal [id number] - [facility] BKR TROPONIN T HS 1 HOUR DELTA FROM 0 HOUR 0ng/L Normal [id number] [facility] ABO GROUPING O Normal [id number] [facility] RH TYPE POS Normal [id number] [facility] ANTIBODY SCREEN NEG Normal [id number] [facility] BKR O2 SATURATION VENOUS 88% Normal [id number] - [facility] Bdy temp Pnl 37.1Celsius Normal [id number] [facility] WBC #/area UrnS HPF 55mmHg Above high normal [id number] 40 - 50 [facility] HCO3 std BldV-sCnc 26.2mmol/L Normal [id number] - [facility] BKR BASE EXCESS, VENOUS 1mmol/L Normal [id number] - [facility] BKR PCO2, VENOUS 46mmHg Normal [id number] 38 - 54 [facility] BKR PH, VENOUS 7.38units Normal [id number] 7.32 - 7.43 [facility] Potassium SerPl-sCnc 3.2mmol/L Below low normal [id number] 3.3 - 5.3 [facility] Glucose SerPl-mCnc 183mg/dL Above high normal [id number] 70 - 100 [facility] Chloride SerPl-sCnc 96mmol/L Below low normal [id number] 98 - 107 [facility] BUN SerPl-mCnc 17mg/dL Normal [id number] 6 - 20 [facility] Calcium SerPl-mCnc 9.7mg/dL Normal [id number] 8.8 - 10 .2 [facility] Creat SerPl-mCnc 0.8mg/dL Normal [id number] 0.4 - 1.3 [facility] BUN/Creat SerPl 21.3 Normal [id number] 8 - 23 [facility] Sodium SerPl-sCnc 136mmol/L Normal [id number] 136 - 144 [facility] eGFRcr SerPlBld CKD-EPI 2020 60mL/min/1.73m2 Normal [id number] - [facility] Anion Gap3 SerPl-sCnc 12 Normal [id number] 7 - 17 [facility] HCO3 SerPl-sCnc 28mmol/L Normal [id number] 20 - 30 [facility] Lipase SerPl-cCnc 26U/L Normal [id number] 11 - 55 [facility] ALP SerPl-cCnc 151U/L Above high normal [id number] 9 - 122 [facility] AST/ALT SerPl-cRto 0.9 Normal [id number] - [facility] Bilirub Direct SerPl-mCnc 0.2mg/dL Normal [id number] - [facility] Albumin SerPl BCG-mCnc 4.7g/dL Normal [id number] 3.6 - 4.9 [facility] ALT SerPl w/o P-5'-P-cCnc 30U/L Normal [id number] 10 - 35 [facility] Albumin/Glob SerPl 1.6 Normal [id number] 1 - 2.2 [facility] Globulin Plas-mCnc 3g/dL Normal [id number] 2.3 - 3. 5 [facility] Bilirub SerPl-mCnc 0.4mg/dL Normal [id number] - [facility] AST SerPl w P-5'-P-cCnc 28U/L Normal [id number] 10 - 35 [facility] Prot SerPl-mCnc 7.7g/dL Normal [id number] 6.6 - 8.7 [facility] Magnesium SerPl-mCnc 1.9mg/dL Normal [id number] 1.7 - 2.4 [facility] Troponin T SerPl HS-mCnc 6ng/L Normal [id number] - [facility] Prothrombin time 9.9seconds Normal [id number] 9.5 - 12. 1 [facility] INR PPP 0.95 Normal [id number] 0.92 - 1.[address] [facility] [address] aPTT PPP 26.8seconds Normal [id number] 23 - 32.[address] [facility] [address] MCH RBC Qn Auto 29.1pg Normal [id number] 27 - 33 [facility] RBC # Bld Auto 5.29M/uL Normal [id number] 4 - 6 [facility] Hct VFr Bld Auto 44.6% Normal [id number] 35 - 45 [facility] Neutrophils # Bld Auto 4.89s9516/uL Normal [id number] 2 - 7.6 [facility] Platelet # Bld Auto 129r5529/uL Normal [id number] 150 - 420 [facility] RDW RBC Auto-Rto 12.5% Normal [id number] 11 - 15 [facility] PMV Bld Auto 9.8fL Normal [id number] 8 - 12 [facility] HCT Hgb Bld-mCnc 15.4g/dL Normal [id number] 11.7 - 15.5 [facility] MCV RBC Auto 84.3fL Normal [id number] 80 - 100 [facility] HCT WBC # Bld Auto 9.8w3126/uL Normal [id number] 4 - 11 [facility] MCHC RBC Auto-mCnc 34.5g/dL Normal [id number] 31 - 36 [facility]
--- OUTSIDE RECORDS SUMMARY | 2024-10-13 09:07 | XMS_ITS | Clinical Summary ---
Author Organization [facility] Address [address] [place] [id number] Phone Care Team Providers Care Corrosion Control Technician Name Role Phone Marin Mendoza MD Primary Care Provider [phone] Social History Tobacco Use Types Packs/Day Years Used Date Smoking Tobacco: Never Assessed Comments Unknown Sex and Gender Information Value Date Recorded Sex Assigned at Not on file Legal Sex Female 2:17 AM EST Gender Identity Not on file Sexual Orientation Not on file Plan of Treatment Health Maintenance Due Date Last Done Comments Breast Cancer Screening 1968 DTaP,Tdap,and Td Vaccines (1 - Tdap) 1987 Hepatitis B Vaccines (1 of 3 - 19+ 3-dose series) 1987 Cervical Cancer Screening: P ap Smear 1989 Pneumococcal Vaccine: 50+ Ye ars (1 of 1 - PCV) 2018 Zoster Vaccines (1 of 2) 2018 Colorectal Cancer Screening: Colonoscopy 07/26/2022 Depression Screening 07/26/2022 HIV Screening 07/26/2022 Hepatitis C Screening 07/26/2022 Social Influencers of Health Screening 07/26/2022 COVID-19 Vaccine (2023-2 5 season) 2024 Influenza Vaccine (#1) 2024 HIB Vaccines Aged Out No longer eligi ble based on patient's age to complete this topic HPV Vaccines Aged Out No longer eligi ble based on patient's age to complete this topic Hepatitis A Vaccines Aged Out No long er eligible based on patient's age to complete this topic IPV Vaccines Aged Out No longer eligi ble based on patient's age to complete this topic MMR Vaccines Aged Out No longer eligi ble based on patient's age to complete this topic Meningococcal ACWY Vaccine Aged Out N o longer eligible based on patient's age to complete this topic Meningococcal B Vacine Aged Out No lo nger eligible based on patient's age to complete this topic Pneumococcal Vaccine: Pediat rics (0 to 5 Years) and At-Risk Patients (6 to 64 Years) Aged Out No longer eligible b ased on patient's age to complete this topic RSV Immunization Patients Un tessie 20 months Aged Out No longer eligible b ased on patient's age to complete this topic Varicella Vaccines Aged Out No longer eligible based on patient's age to complete this topic Care Teams Corrosion Control Technician Relationship Specialty Start Date End Date Marin Mendoza MD [address] [place] [address] PCP - General 11/22/14
--- NOTE | 2024-10-13 09:14 | MHC.OFFVISWM ---
VS Expanded 10/13/24 09:19 BP 108/64 Blood Pressure Location Rt brachial Blood Pressure Position Sitting Pulse 89 Pulse Source Pulse Oximeter Temp 98.2 F Temperature Source Temporal Artery Scan Pulse Oximetry 98 Oxygen Delivery Method Room Air Height 4 ft 11 in Weight 133 lb BMI 26.9 Body Fat % 32.0 Body Fat Mass 42.6 Fat Free Mass 90.4 Visceral Fat Rating 7.0 Body Water % 48.1 Body Water Mass 64.0 Muscle Mass/Score 85.8 Basal Metabolic Rate/Score 1,229 Intake Visit Reasons: (OV) PO LSG 01/22/24 Inspector Open Die Required: Yes Inspector Open Die Services: Inspector Open Die Present Inspector Open Die Name: [id number] Allergies tramadol Allergy (Mild, Verified 07/09/24 10:42) WEAKNESS Medication List - Last Reconciled 10/13/24 by HUEY Guevara atorvastatin 10 mg PO DAILY buspirone 7.5 mg PO BID clotrimazole 1% (Antifungal (clotrimazole)) 1 appl topical BID escitalopram oxalate 20 mg PO DAILY melatonin 10 mg PO BEDTIME sennosides (senna) 17.2 mg (2 x 8.6 mg) PO BEDTIME 90 days zolpidem 10 mg PO BEDTIME PRN HPI Comments Details: This?a?54?yo female who is s/p LSG without hiatal hernia repair on?01/22/2024. Presents for 9 months post op visit. Weight today is 133 pounds, with a BMI of 26.9. There has been a 51.8 pound weight loss,(initial weight 184.8 pounds) since starting the program on 03/04/2023 reflecting a 28 % total body weight loss and a weight loss of 26.5 pounds since surgery (operative weight 159.5 pounds) reflecting a 16.6 % TBWL since surgery. No complaints of nausea, emesis, abdominal pain or reflux. Reports constipation, BM every 3 days. Taking celebrate MVI She was inquiring about the removal of extra skin of her abdomen. She states she gets a rash to the skin under her abdomen, 2-3 x per month. she reports odor, itch, discomfort. She has to shower several times per day and she uses otc lotion. Rash recurs. She has used a cream that her daughter had gotten for her (she is a pharmacist) with improvement. Doesn't remember the name. She wants to change her meal plan to one shake and 2 meals Present meal plan includes: Premier protein powder 1 scoop in 8 oz almond milk at 8-10, 11-1 zone perfect bar 2-4 meal 5-6 pm 4 forks protein and 4 forks veg Drinking 48-64 bottles water ? Exercise routine includes: walking outside 1 hr daily while in [place] caring for her sick mother 3 days, treadmill, 200-250 calories PFS Medical History Preop cardiovascular exam GERD (gastroesophageal reflux disease) DJD (degenerative joint disease) Sleep apnea Anxiety Depression Insulin dependent type 2 diabetes mellitus History of pulmonary embolism Hypercholesterolemia HTN (hypertension) Obesity (BMI 30-39.9) Surgical History Hx of laparoscopic partial gastrectomy H/O vein stripping Hx of hysterectomy Hx of section Family History Mother Diabetes Heart problem Hypertension Father Mental health disorder Daughter No problems noted. Son No problems noted. Son No problems noted. Social History Household Members: None Housing: Apartment Are you a primary certified social workers in health care to a significant other at home: No Do you presently have visiting nurse or other home services: No Alcohol intake: never Patient Tobacco Use Status: Never used Tobacco service: No Physical Exam Const General: healthy appearing and no acute distress Resp Effort & Inspection: normal respiratory effort Auscultation: clear to auscultation bilaterally Cardio Rate: regular rate Rhythm: regular rhythm GI Auscultation: normal bowel sounds Extrem General: Yes normal to inspection Assessment & Plan Assessment & Plan (1) S/P laparoscopic sleeve gastrectomy: Code(s): Z98.84 - Bariatric surgery status Category: Surgical Plan: Overall doing well. Encouraged to change her meal plan per her request: Premier protein, 1 scoop Meal with 5 forks of protein and 5 forks of vegetables x2. Encouraged to increase her exercise on the treadmill to 300 calories per day 7 days a week while she is here in the [facility]. Continue to exercise by walking outside 1 hour daily while in [place] caring for her sick mother. Return to clinic 6 weeks. Medications: Refilled clotrimazole 1% (Antifungal (clotrimazole)) 1 appl topical BID 45 grams 3RF
[2024-10-13 09:19] VITALS: BP 108/64; PULSE 89; TEMP 36.8; O2SAT 98; BMI 26.9
== END 2024-10-13 09:44 | disposition home or self-care (01) ==
PROVIDERS: PCP Nurse Practitioner Family; Visit Provider Physician Assistant Surgical
DX: M79.3 Panniculitis, unspecified (principal); Z90.3 Acquired absence of stomach [part of]; Z98.84 Bariatric surgery status
CPT/HCPCS: 99213

== ENCOUNTER 2025-01-13 11:31 | Outpatient (AMB) | payer OTHER, SELFPAY ==
--- NOTE | 2025-01-13 11:36 | A.OFFVIS_ITS ---
VS Expanded 01/13/25 11:41 BP 117/73 Blood Pressure Location Rt brachial Blood Pressure Position Sitting Pulse 74 Pulse Source Pulse Oximeter Temp 96.7 F L Temperature Source Temporal Artery Scan Pulse Oximetry 98 Oxygen Delivery Method Room Air Height 4 ft 11 in Weight 133 lb 9.6 oz BMI 27.0 Body Fat % 34.2 Body Fat Mass 45.6 Fat Free Mass 87.8 Visceral Fat Rating 8.0 Body Water % 46.6 Body Water Mass 62.2 Muscle Mass/Score 83.4 Basal Metabolic Rate/Score 1,204 Intake Visit Reasons: (OV) PO LSG 01/22/24 Vp Production Required: Yes Vp Production Services: Vp Production Present Vp Production Name: hospital cmi Allergies tramadol Allergy (Mild, Verified 01/13/25 11:40) WEAKNESS Medication List - Last Reconciled 01/13/25 by HUEY Guevara atorvastatin 10 mg PO DAILY buspirone 7.5 mg PO BID clotrimazole 1% (Antifungal (clotrimazole)) 1 appl topical BID escitalopram oxalate 20 mg PO DAILY melatonin 10 mg PO BEDTIME metoprolol succinate ER 25 mg PO DAILY sennosides (senna) 17.2 mg (2 x 8.6 mg) PO BEDTIME 90 days zolpidem 10 mg PO BEDTIME PRN HPI Comments Details: This?a?54?yo female who is s/p LSG without hiatal hernia repair on?01/22/2024. Presents for 1 year post op visit. Weight today is 133.6 pounds, with a BMI of 27. There has been a 51.8 pound weight loss,(initial weight 184.8 pounds) since starting the program on 03/04/2023 reflecting a 28 % total body weight loss and a weight loss of 26.5 pounds since surgery (operative weight 159.5 pounds) reflecting a 16.6 % TBWL since surgery. No complaints of nausea, emesis, abdominal pain or reflux. Reports constipation, BM every 3 days. Taking celebrate MVI She was inquiring about the removal of extra skin of her abdomen. She states she gets a rash to the skin under her abdomen, 1-2 x per month. she reports odor, itch, discomfort. She has to shower several times per day and she uses otc lotion. Rash recurs. She has used a cream that her daughter had gotten for her (she is a pharmacist) with improvement. We have since prescribed clotrimazole cream which does help although the rash does recur depending upon activity level and temperature outside. She states that she fell backwards and landed on her buttock about 9 or 10 days ago. She saw her primary care physician who prescribed some anti-inflammatories and cream. She was referred to Orthopedics. She was referred for x-ray but has not yet obtained it. She does feel overall that she is improving. She is walking without the assistance of the device. Present meal plan includes: Premier protein powder 1 scoop in 8 oz almond milk at 8-10 meal 12 and 5 pm 5 forks protein and 5 forks veg Drinking 48-64 bottles water ? Exercise routine includes: walking outside 4-5 days per week, 40-60 minutes. Any post op complications: none DERECK: resolved DM: resolved HTN: improved Hyperlipidemia: improved GERD:?0-5 scale ??0 = no symptoms ??1 = symptoms noticeable but not bothersome 2 =symptoms bothersome but not daily ? 3 = symptoms bothersome and daily 4 = symptoms affect daily activities 5 = symptoms are incapacitating, unable to do daily activities ? How bad is the heartburn: 0 ? Heartburn while lying down: 0 ? Heartburn when standing up: 0 ? Heartburn after meals: 0 ? Does heartburn change your diet: 0 ? Does heartburn wake you up from sleep: 0 ? Do you have difficulty swallowin ? Do you have pain with swallowin ? If you take medicine for your reflux, does this affect your daily life: 0 Satisfaction with present condition - satisfied or not satisfied: satisfied [facility] Medical History Preop cardiovascular exam GERD (gastroesophageal reflux disease) DJD (degenerative joint disease) Sleep apnea Anxiety Depression Insulin dependent type 2 diabetes mellitus History of pulmonary embolism Hypercholesterolemia HTN (hypertension) Obesity (BMI 30-39.9) Surgical History Hx of laparoscopic partial gastrectomy H/O vein stripping Hx of hysterectomy Hx of section Family History Mother Diabetes Heart problem Hypertension Father Mental health disorder Daughter No problems noted. Son No problems noted. Son No problems noted. Social History Household Members: None Housing: Apartment Are you a primary patient care director to a significant other at home: No Do you presently have visiting nurse or other home services: No Alcohol intake: never Patient Tobacco Use Status: Never used Tobacco service: No Physical Exam Const General: cooperative and no acute distress Orientation/consciousness: patient oriented x3 Resp Effort & Inspection: normal respiratory effort Auscultation: clear to auscultation bilaterally Cardio Rate: regular rate Rhythm: regular rhythm GI Inspection: Yes normal to inspection and Yes incision (well healed) Palpation (GI): Soft to palpation and no masses Skin Other: Grade 1-2 pannus without current rash Neuro General: patient oriented x3 Assessment & Plan Assessment & Plan (1) S/P laparoscopic sleeve gastrectomy: Code(s): Z98.84 - Bariatric surgery status Category: Surgical Plan: Labs were done in September however hemoglobin A1c was 7. This was trending down based upon a year ago. We will recheck chemistry panel and vitamin levels and hemoglobin A1c. Encouraged to call her primary care physician to ensure that she gets appropriate imaging studies given her recent fall. She still continues to walk as she is able. We will have her return to the office in a proximally 3 months. Encouraged to text weekly with weights and with any questions or concerns. Orders: Orders IRON PROFILE Today E11.9 - Type 2 diabetes mellitus without complications, E78.00 - Pure hypercholesterolemia, unspecified, F41.9 - Anxiety disorder, unspecified, I10 - Essential (primary) hypertension, Z79.4 - correction (current) use of insulin, Z98.84 - Bariatric surgery status Zinc Today E11.9 - Type 2 diabetes mellitus without complications, E78.00 - Pure hypercholesterolemia, unspecified, F41.9 - Anxiety disorder, unspecified, I10 - Essential (primary) hypertension, Z79.4 - terminal clerk (current) use of insulin, Z98.84 - Bariatric surgery status Vitamin A Today E11.9 - Type 2 diabetes mellitus without complications, E78.00 - Pure hypercholesterolemia, unspecified, F41.9 - Anxiety disorder, unspecified, I10 - Essential (primary) hypertension, Z79.4 - correction (current) use of insulin, Z98.84 - Bariatric surgery status Ferritin Today E11.9 - Type 2 diabetes mellitus without complications, E78.00 - Pure hypercholesterolemia, unspecified, F41.9 - Anxiety disorder, unspecified, I10 - Essential (primary) hypertension, Z79.4 - correction (current) use of insulin, Z98.84 - Bariatric surgery status Vitamin B1 Today E11.9 - Type 2 diabetes mellitus without complications, E78.00 - Pure hypercholesterolemia, unspecified, F41.9 - Anxiety disorder, unspecified, I10 - Essential (primary) hypertension, Z79.4 - correction (current) use of insulin, Z98.84 - Bariatric surgery status Comprehensive Met. Panel Today E11.9 - Type 2 diabetes mellitus without complications, E78.00 - Pure hypercholesterolemia, unspecified, F41.9 - Anxiety disorder, unspecified, I10 - Essential (primary) hypertension, Z79.4 - correction (current) use of insulin, Z98.84 - Bariatric surgery status TSH reflex Free T4 Today E11.9 - Type 2 diabetes mellitus without c omplications, E78.00 - Pure hypercholesterolemia, unspecified, F41.9 - Anxiety disorder, unspecified, I10 - Essential (primary) hypertension, Z79.4 - correction (current) use of insulin, Z98.84 - Bariatric surgery status Vitamin D 25-OH Total Today E11.9 - Type 2 diabetes mellitus without complications, E78.00 - Pure hypercholesterolemia, unspecified, F41.9 - Anxiety disorder, unspecified, I10 - Essential (primary) hypertension, Z79.4 - terminal clerk (current) use of insulin, Z98.84 - Bariatric surgery status Vitamin B12 and Folate Today E11.9 - Type 2 diabetes mellitus without complications, E78.00 - Pure hypercholesterolemia, unspecified, F41.9 - Anxiety disorder, unspecified, I10 - Essential (primary) hypertension, Z79.4 - terminal clerk (current) use of insulin, Z98.84 - Bariatric surgery status Hemoglobin A1c Today E11.9 - Type 2 diabetes mellitus without complications, E78.00 - Pure hypercholesterolemia, unspecified, F41.9 - Anxiety disorder, unspecified, I10 - Essential (primary) hypertension, Z79.4 - correction (current) use of insulin, Z98.84 - Bariatric surgery status
[2025-01-13 11:41] VITALS: BP 117/73; PULSE 74; TEMP 35.9; O2SAT 98; BMI 27.0
--- OUTSIDE RECORDS SUMMARY | 2025-01-13 12:09 | XMS_ITS | Clinical Summary ---
Author Organization [address] Address [address] [place] [phone] Phone Care Team Providers Care Cardiac Monitor Name Role Phone Milton Rowe ADVERTISING WRITER Primary Ca re Provider Social History Tobacco [...] screening 2008 Colon cancer screening, Colonoscopy 2013 Pneumococcal Vaccine (50+ ye ars) (1 of 1 - PCV) 2018 Shingles vaccine (Shingrix) (1 of 2 - Shingrix (RZV) 2 Dose Standard Series) 2018 Covid-19 vaccine series ( - season) 2024 Influenza vaccine 04/25/2025 Diabetes screening 04/06/2026 04/06/2023 RSV Immunization (1 - 1-dose 75+ series) 2043 Meningococcal Vaccine Aged Out No [...] 136 - 144 mmol/L 04/06/2023 1:27 AM [facility] Potassium 3.2(L) 3.3 - 5.3 mmol/L 04/06/2023 1:27 AM [facility] Chloride 96(L) 98 - 107 mmol/L 04/06/2023 1:27 AM [facility] CO2 28 20 - 30 mmol/L 04/06/2023 1:27 AM [facility] Anion Gap 12 7 - 17 04/06/2023 1:27 AM [facility] Glucose 183(H) 70 - 100 mg/dL 04/06/2023 1:27 AM [facility] BUN 17 6 - 20 mg/dL 04/06/2023 1:27 AM [facility] Creatinine 0.80 0.40 - 1.30 mg/dL 04/06/2023 1:27 AM [facility] Calcium 9.7 8.8 - 10.2 mg/dL 04/06/2023 1:27 AM [facility] BUN/Creatinine Ratio 21.3 8.0 - 23.0 04/06/2023 1:27 AM [facility] eGFR (Creatinine) >60 >=60 mL/min/1.7 3m2 04/06/2023 1:27 AM EDT [facility] Comment: Values < 60 mL/min/1.73 m2 may indicate CKD if present for more than three months AND creatinine is at steady state. The eGFR provides a rough estimate of kidney function. On 04/09/22 all [facility] Clinical Labs and Epic began using a ciu-enaf-qrnru formula for estimating GFR called CKD-EPI Creatinine 2020. This equation reports eGFR based on creatinine, patient age, clinical sex, and is standardized to a body surface area of 1.73 m2. For the same creatinine, this new race-free eGFR will be lower than prior reported Black eGFR results and higher than prior Non-Black eGFR results. For further guidance, please refer to the CKD: Adult Fretted Instruments Inspector Signature pathway. Blood Venipuncture / Unknown 04/06/2023 12:37 AM EDT 04/06/2023 1:00 AM EDT us Garcia James MD LAB BLOOD ORDERABLE S Final Result [address] [phone] from Last 3 Months or Most Recently Relevant to Health Maintenance Insurance MEDICAID MA[place] [facility] [place] [address] [place] [address] MEDICAID MANAG[place] [facility] [place] [facility] [place] Care Teams Cardiac Monitor Relationship Specialty Start Date End Date Milton Rowe NP [address] [place] [phone] PCP - General Family Medicine 04/06/23
--- OUTSIDE RECORDS SUMMARY | 2025-01-13 12:09 | XMS_ITS | Clinical Summary ---
Author Organization [facility] Address [address] [place] [phone] Phone Care Team Providers Care Log Rider Name Role Phone Marin Mendoza MD Primary Care Provider [phone] Social History Tobacco Use Types Packs/Day Years [...] Vaccine (2023-2 5 season) 2024 Influenza Vaccine (Season Ended) 2025 HIB Vaccines Aged Out No longer eligi [...] age to complete this topic Meningococcal B Vaccine Aged Out No l onger eligible based on patient's age to complete [...] age to complete this topic Care Teams Log Rider Relationship Specialty Start Date End Date Marin Mendoza MD [address] [place] [address] PCP - General 11/22/14
== END 2025-01-13 12:15 | disposition home or self-care (01) ==
LOC: HO.HBS 11:32
PROVIDERS: PCP Nurse Practitioner Family; Visit Provider Physician Assistant Surgical
DX: E66.3 Overweight (principal); Z68.27 Body mass index [BMI] 27.0-27.9, adult; Z90.3 Acquired absence of stomach [part of]; Z98.84 Bariatric surgery status
CPT/HCPCS: 99213; G2211

== ENCOUNTER 2025-01-13 11:31 | Outpatient (REF) | payer OTHER, SELFPAY ==
[2025-01-13 13:15] LABS: Estimated Average Glucose 151 mg/dL; Hemoglobin A1c % 6.9 % (<6.0)
[2025-01-13 13:48] LABS: Alanine Aminotransferase 15 U/L (0-31); Albumin Level 4.4 g/dL (3.5-5.0); Alkaline Phosphatase 86 U/L (39-117); Anion Gap 10 (12-20); Aspartate Amino Transferase 20 U/L (5-31); Bilirubin Total 0.6 mg/dL (0.0-1.0); Blood Urea Nitrogen 17 mg/dL (9-16); Calcium 9.3 mg/dL (8.4-10.2); Carbon Dioxide 28 mmol/L (22-29); Chloride 106 mmol/L (96-108); Estimated Glomerular Filt Rate > 60; Glucose Random 121 mg/dL (60-115); Iron 99 mcg/dL (30-160); Percent Iron Saturation 38 % (15-50); Potassium 4.4 mmol/L (3.3-5.1); Sodium 140 mmol/L (135-145); Total Iron Binding Capacity 260 mcg/dL (228-428); Total Protein 6.8 g/dL (6.5-8.0); Unsaturated Iron Binding 161 ug/dL
[2025-01-13 13:53] LABS: Ferritin 228 ng/mL (10-250); TSH reflex Free T4 1.98 uIU/mL (0.32-4.0); Vitamin D 25-OH Total 25.9 ng/mL (>30)
[2025-01-13 14:03] LABS: Folate 11.8 ng/mL (> or = 4.0); Vitamin B12 435 pg/mL (200-900)
[2025-01-17 01:33] LABS: Vitamin A 58 mcg/dL (38-98)
[2025-01-17 06:42] LABS: Zinc 81 mcg/dL (60-130)
[2025-01-21 04:13] LABS: Vitamin B1 12 nmol/L (8-30)
== END 2025-01-13 11:32 | disposition home or self-care (01) ==
LOC: HO.LAB 11:31
PROVIDERS: PCP Nurse Practitioner Family; Visit Provider Physician Assistant Surgical
DX: E11.9 Type 2 diabetes mellitus without complications (principal); E78.00 Pure hypercholesterolemia, unspecified; I10 Essential (primary) hypertension; F41.9 Anxiety disorder, unspecified; Z98.84 Bariatric surgery status; Z79.4 Long term (current) use of insulin
CPT/HCPCS: 36415; 80053; 82306; 82607; 82728; 82746; 83036; 83540; 84425; 84443; 84590; 84630; 99212